=== PATIENT | male | born 1955 ===

== ENCOUNTER 2017-11-18 11:22 | Inpatient (IN) | payer MEDICAID, OTHER, SELFPAY ==
--- NOTE | 2017-11-18 11:49 | ED PDOC ---
Arrival/HPI - General Chief Complaint: Psychiatric Evaluation Time Seen by Provider: 11/18/17 11:28 Historian: Patient - History of Present Illness Narrative History of Present Illness (Text): 11/18/17 11:44 A 62 year old male, whose past medical history includes bipolar disorder, brought into the emergency department by EMS for suicidal ideation. Patient reports he has been drinking a lot and not going to work. His last drink was 1 hour prior to arrival. Patient states he feels he has no reason to live and wants to kill himself. Patient denies any somatic complaints at this time. Patient denies any trauma, fever, chills, nausea, vomiting, abdominal pain, chest pain, shortness of breath or any other complaints. Patient is compliant with his medications. Past Medical History - Provider Review Nursing Documentation Reviewed: Yes - Infectious Disease Hx of Infectious Diseases: None - Cardiac Hx Cardiac Disorders: No Hx Hypertension: No - Pulmonary Hx Tuberculosis: No - Neurological HX Cerebrovascular Accident: No Hx Seizures: No - HEENT Hx HEENT Disorder: No - Hematological/Oncological Hx Cancer: No - Integumentary Hx Dermatological Disorder: No - Genitourinary/Gynecological Hx Sexually Transmitted Diseases: No - Psychiatric Hx Anxiety: Yes Hx Bipolar Disorder: Yes Hx Depression: Yes Hx Substance Use: No - Anesthesia Hx Anesthesia: No Hx Anesthesia Reactions: No Family/Social History - Physician Review Nursing Documentation Reviewed: Yes Family/Social History: No Known Family HX Smoking Status: Never Smoked Hx Alcohol Use: Yes Frequency of alcohol use: Daily Hx Substance Use: No Allergies/Home Meds Allergies/Adverse Reactions: Allergies No Known Allergies Allergy (Verified 11/07/15 18:27) Review of Systems - Physician Review All systems were reviewed & negative as marked: Yes - Review of Systems Constitutional: absent: Fevers, Night Sweats Respiratory: absent: SOB Cardiovascular: absent: Chest Pain Gastrointestinal: absent: Abdominal Pain, Nausea, Vomiting Musculoskeletal: absent: Arthralgias Skin: absent: Rash, Pruritis Neurological: absent: Headache, Dizziness Psychiatric: Anxiety, Depression, Suicidal Ideation Physical Exam Vital Signs Reviewed: Yes Vital Signs Temp Pulse Resp BP Pulse Ox 11/18/17 12:41 118 H 18 130/88 95 11/18/17 11:45 98.2 F 88 18 128/88 98 Temperature: Afebrile Blood Pressure: Normal Pulse: Tachycardic Respiratory Rate: Normal Appearance: Positive for: Well-Appearing, Non-Toxic, Comfortable Pain Distress: None Mental Status: Positive for: Alert and Oriented X 3 - Systems Exam Head: Present: Atraumatic, Normocephalic Extroacular Muscles: Present: EOMI Conjunctiva: Present: Normal Mouth: Present: Moist Mucous Membranes Neck: Present: Normal Range of Motion Respiratory/Chest: Present: Clear to Auscultation, Good Air Exchange. No: Respiratory Distress, Accessory Muscle Use Cardiovascular: Present: Normal S1, S2, Tachycardic. No: Murmurs Abdomen: Present: Normal Bowel Sounds. No: Tenderness, Distention, Peritoneal Signs Upper Extremity: Present: Normal Inspection, Normal ROM. No: Cyanosis, Edema Lower Extremity: Present: Normal Inspection, Normal ROM. No: Edema Neurological: Present: GCS=15, Speech Normal, Gait Normal Skin: Present: Warm, Dry, Normal Color. No: Rashes Psychiatric: Present: Alert, Oriented x 3, Anxious, Depressed Mood, Suicidal Ideation Medical Decision Making ED Course and Treatment: 11/18/17 12:04 Patient is nontoxic extremely anxious. pacing in er. tachycardic. pt placed on 1:1 ativan given PO; CBC WNL CMP glucose; 173 Tylenol WNL Salicylate WNL Alcohol level 185 Urine drug screen wnl UA; wnl cxr: wnl ekg sinus tachycardia at 101 b/m no st elevations, qtc; 464 pt reassessment; HR: 118 BP:130/88, tremulous in er. ativan given IVP; Patient was seen and evaluated by PES screener: alexei; pt with SI, placed on 1:1 with etoh withdrawal; will admit to tele with psych consult. case discussed with dr. Denise Tabor; accepts admission to remote tele for etoh withdrawal with Psych consult. Impression;alcohol withdrawal, depression, anxiety, Suicidal ideation admit remote tele 11/18/17 15:09 - Lab Interpretations Lab Results: 11/18/17 11:30 11/18/17 11:30 Lab Results 11/18/17 13:27: Lactate Dehydrogenase 353, Total Creatine Kinase 74, Troponin I < 0.01 11/18/17 11:30: [place] 0.3 L 11/18/17 11:30: Alcohol, Quantitative 185 H 11/18/17 11:30: Salicylates < 1 L, Acetaminophen < 10.0 L 11/18/17 11:30: Urine Opiates Screen Negative, Urine Methadone Screen Negative, Ur Barbiturates Screen Negative, Ur Phencyclidine Scrn Negative, Ur Amphetamines Screen Negative, U Benzodiazepines Scrn Negative, U Oth Cocaine Metabols Negative, U Cannabinoids Screen Negative 11/18/17 11:30: Sodium 143, Potassium 3.7, Chloride 105, Carbon Dioxide 23, Anion Gap 18, BUN 8, Creatinine 0.8, Est GFR ( Amer) > 60, Est GFR (Non- Af Amer) > 60, Random Glucose 176 H, Calcium 9.5, Total Bilirubin 0.6, AST 41, ALT 36, Alkaline Phosphatase 41, Total Protein 7.4, Albumin 4.6, Globulin 2.9, Albumin/Globulin Ratio 1.6 11/18/17 11:30: Urine Color Straw, Urine Appearance Clear, Urine pH 6.0, Ur Specific [place] <= 1.005, Urine Protein Negative, Urine Glucose (UA) Negative, Urine Ketones Negative, Urine Blood Negative, Urine Nitrate Negative, Urine Bilirubin Negative, Urine Urobilinogen 0.2, Ur Leukocyte Esterase Negative 11/18/17 11:30: WBC 6.6, RBC 4.81, Hgb 14.5, Hct 42.6, MCV 88.6, MCH 30.1, MCHC 34.0, RDW 13.7, Plt Count 269, MPV 9.0, Gran % 81.7 H, Lymph % (Auto) 14.1 L, [place] % (Auto) 2.9, Eos % (Auto) 0.8 L, Baso % (Auto) 0.5, Gran # 5.38, Lymph # 0.9 L, [place] # 0.2, Eos # 0.1, Baso # 0.03 - RAD Interpretation Radiology Orders: 11/18/17 11:36 CHEST PORTABLE [RAD] Stat - Medication Orders Current Medication Orders: Multivitamins/Vitamin C 10 ml/Thiamine HCl 100 mg/ Folic Acid 1 mg/ Sodium Chloride 1,011.2 mls @ 100 mls/hr IV .[id number] ONE Stop: 11/18/17 22:52 Last Admin: 11/18/17 14:23 Dose: 100 mls/hr eMAR Start Stop Document 11/18/17 14:23 SE (Rec: 11/18/17 14:23 SE [id number]) Intravenous Solution Start Date 11/18/17 Start Time 14:23 Discontinued Medications Lorazepam (Ativan) 0.5 mg PO ONCE ONE PRN Reason: Protocol Stop: 11/18/17 11:42 Last Admin: 11/18/17 12:00 Dose: 0.5 mg Lorazepam (Ativan) 0.5 mg IVP ONCE ONE PRN Reason: Protocol Stop: 11/18/17 12:59 Last Admin: 11/18/17 13:34 Dose: 0.5 mg IVP Administration Document 11/18/17 13:34 SRE (Rec: 11/18/17 13:35 [id number]) Charges for Administration # of IVP Administrations 1 - Scribe Statement The provider has reviewed the documentation as recorded by the Lawsoniblyndsey Celeste Provider Scribe Attestation: All medical record entries made by the Scribe were at my direction and personally dictated by me. I have reviewed the chart and agree that the record accurately reflects my personal performance of the history, physical exam, medical decision making, and the department course for this patient. I have also personally directed, reviewed, and agree with the discharge instructions and disposition. Disposition/Present on Arrival - Present on Arrival Any Indicators Present on Arrival: No History of DVT/PE: No History of Uncontrolled Diabetes: No Urinary Catheter: No History of Decub. Ulcer: No History Surgical Site Infection Following: None - Disposition Have Diagnosis and Disposition been Completed?: Yes Diagnosis: Suicidal ideation, Alcohol withdrawal Disposition: HOSPITALIZED Disposition Time: 15:10 Patient Plan: Admission Condition: FAIR Referrals: Katerine Aguirre, [Primary Care Provider] - Follow up with primary Forms: [employer] (Azerbaijani)
[2017-11-18 11:51] LABS: URINE BILIRUBIN NEGATIVE (NEGATIVE); URINE BLOOD NEGATIVE (NEGATIVE); URINE GLUCOSE (UA) NEGATIVE (NEGATIVE); URINE LEUKOCYTE ESTERASE NEGATIVE Leu/uL (NEGATIVE); URINE NITRATE NEGATIVE (NEGATIVE); URINE PROTEIN NEGATIVE mg/dL (<30 mg/dL); URINE UROBILINOGEN 0.2 E.U./dL (<1 E.U./dL)
[2017-11-18 11:52] LABS: BASO # 0.03 K/mm3 (0.0-2.0); BASO % 0.5 % (0.0-3.0); EOS # 0.1 (0.0-0.7); EOS % 0.8 % (1.5-5.0); GRAN # 5.38 (1.4-6.5); GRAN % 81.7 % (50.0-68.0); HEMOGLOBIN 14.5 g/dL (14.0-18.0); LYMPH # 0.9 (1.2-3.4); LYMPH % 14.1 % (22.0-35.0); MEAN CELL VOLUME 88.6 fl (80.0-105.0); MEAN CORPUSCULAR HEMOGLOBIN 30.1 pg (25.0-35.0); MONO # 0.2 (0.1-0.6); MONO % 2.9 % (1.0-6.0); RBC 4.81 10^6/uL (3.5-6.1); RED CELL DISTRIBUTION WIDTH 13.7 % (11.5-14.5); WHITE BLOOD COUNT 6.6 10^3/ul (4.5-11.0)
[2017-11-18 11:53] LABS: URINE APPEARANCE CLEAR (CLEAR); URINE COLOR STRAW (YELLOW)
[2017-11-18 12:04] LABS: ALB/GLOB RATIO 1.6 (1.1-1.8); ALBUMIN 4.6 g/dL (3.0-4.8); ALT/SGPT 36 U/L (7-56); AST/SGOT 41 U/L (17-59); BLOOD UREA NITROGEN 8 mg/dL (7-21); CALCIUM 9.5 mg/dL (8.4-10.5); GFR AFRICAN-AMERICAN > 60; GFR NON-AFRICAN AMERICAN > 60
[2017-11-18 12:14] LABS: BARBITURATES, UR NEGATIVE (NEGATIVE); BENZODIAZEPINES, UR NEGATIVE (NEGATIVE); OPIATES, UR NEGATIVE (NEGATIVE); PHENCYCLIDINE, UR NEGATIVE (NEGATIVE)
--- NOTE | 2017-11-18 12:28 | RAD ---
HISTORY: pes eval COMPARISON: 11/07/2015 FINDINGS: LUNGS: Minimal linear scar/ atelectasis at right base. PLEURA: Slight blunting right costophrenic angle, chronic, consistent with pleural thickening. No pleural effusion. CARDIOVASCULAR: Normal heart size. Right infrahilar surgical clips, possibly related to prior partial pneumonectomy. OSSEOUS STRUCTURES: No significant abnormalities. VISUALIZED UPPER ABDOMEN: Normal. OTHER FINDINGS: None. IMPRESSION: No active disease.
[2017-11-18] MEDS ORDERED: Multivitamin (MVI) 10 ML, Thiamine 100 MG, Folic Acid 1 MG in Sodium Chloride 0.9% 1,00... IV ONE (12:46)
[2017-11-18 14:21] LABS: TROPONIN I < 0.01 ng/mL
[2017-11-18 15:04] LABS: ACETAMINOPHEN < 10.0 ug/ml (10.0-20.0); SALICYLATE < 1 mg/dL (2.0-20.0)
--- NOTE | 2017-11-18 16:14 | CP.PCM.HP ---
<Singh Traore - Last Filed: 11/19/17 04:31> History of Present Illness - History of Present Illness History of Present Illness: Singh Traore PGY1 IM H&P Note cc: I want to stop drinking alcohol Mr. Koch is a 62 yo Male with a psych history of Bipolar disorder but no medical history presented to ED after going to [facility] and requesting to be admitted to a program to help him stop drinking ETOH; patient was found to be intoxicated. Patient states his last drink was 3 shots of bicardi earlier on the day of admission. He usually drinks half-full pint of bicardi and 4x24oz beers. Patient had withdrawals before and describes them as tremors and says that he sometimes sees shadows, but denies any prior seizures. Patient has not been to any rehab programs before. Patient denies any recent illness, fevers/chills, n/v/d, chest pain, shortness of breath , cough, abdominal pain, headaches, changes in bowel/urinary habits. 12-pt ROS was reviewed and is otherwise unremarkable. 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, denies tobacco/drug/IVDA use, drinks ETOH as noted above Pharmacy: "pharmacy on [address]" Present on Admission - Present on Admission Any Indicators Present on Admission: No Review of Systems - Review of Systems All systems: reviewed and no additional remarkable complaints except (as per HPI ) Past Patient History - Infectious Disease Hx of Infectious Diseases: None - Past Social History Smoking Status: Never Smoked Alcohol: > 2 Drinks/Day Drugs: Denies Home Situation {Lives}: Alone - CARDIAC Hx Cardiac Disorders: No Hx Hypertension: No - PULMONARY Hx Respiratory Disorders: No Hx Tuberculosis: No - NEUROLOGICAL Hx Neurological Disorder: No HX Cerebrovascular Accident: No Hx Seizures: No - HEENT Hx HEENT Problems: No - RENAL Hx Chronic Kidney Disease: No - ENDOCRINE/METABOLIC Hx Endocrine Disorders: No - HEMATOLOGICAL/ONCOLOGICAL Hx Blood Disorders: No Hx Cancer: No - INTEGUMENTARY Hx Dermatological Problems: No - MUSCULOSKELETAL/RHEUMATOLOGICAL Hx Musculoskeletal Disorders: No - GASTROINTESTINAL Hx Gastrointestinal Disorders: No - GENITOURINARY/GYNECOLOGICAL Hx Genitourinary Disorders: No Hx Sexually Transmitted Disorders: No - PSYCHIATRIC Hx Anxiety: Yes Hx Bipolar Disorder: Yes Hx Depression: Yes Hx Substance Use: No - SURGICAL HISTORY Hx Surgeries: Yes Other/Comment: L inguinal hernia repair. ?thymus - ANESTHESIA Hx Anesthesia: No Hx Anesthesia Reactions: No Meds Allergies/Adverse Reactions: Allergies Allergy/AdvReac Type Severity Reaction Status Date / Time No Known Allergies Allergy Verified 11/07/15 18:27 Physical Exam - Constitutional Appears: Well, Non-toxic, No Acute Distress Additional comments: smells like ETOH not agitated or confused speaking coherently and comfortably in full sentences - Head Exam Head Exam: NORMAL INSPECTION - Eye Exam Eye Exam: EOMI, Normal appearance - ENT Exam ENT Exam: Mucous Membranes Moist - Neck Exam Neck exam: Positive for: Normal Inspection - Respiratory Exam Respiratory Exam: Clear to Auscultation Bilateral, NORMAL BREATHING PATTERN. absent: Rales, Rhonchi, Wheezes - Cardiovascular Exam Cardiovascular Exam: RRR, +S1, +S2 - GI/Abdominal Exam GI & Abdominal Exam: Normal Bowel Sounds, Soft. absent: Distended, Tenderness - Extremities Exam Extremities exam: Positive for: full ROM, normal inspection Additional comments: mild tremor with outstretched hands - Back Exam Back exam: NORMAL INSPECTION - Neurological Exam Neurological exam: Alert, Oriented x3 - Psychiatric Exam Psychiatric exam: Normal Affect, Normal Mood - Skin Skin Exam: Normal Color, Warm Results - Vital Signs Recent Vital Signs: Last Vital Signs Temp 98.2 F 11/18/17 15:39 Pulse 96 H 11/18/17 15:39 Resp 16 11/18/17 15:39 BP 121/68 11/18/17 15:39 Pulse Ox 98 11/18/17 15:39 - Labs Result Diagrams: 11/18/17 11:30 11/18/17 11:30 Labs: Laboratory Results - last 24 hr 11/18/17 11/18/17 11/18/17 11:30 11:30 11:30 WBC 6.6 RBC 4.81 Hgb 14.5 Hct 42.6 MCV 88.6 MCH 30.1 MCHC 34.0 RDW 13.7 Plt Count 269 MPV 9.0 Gran % 81.7 H Lymph % (Auto) 14.1 L [place] % (Auto) 2.9 Eos % (Auto) 0.8 L Baso % (Auto) 0.5 Gran # 5.38 Lymph # 0.9 L [place] # 0.2 Eos # 0.1 Baso # 0.03 Sodium 143 Potassium 3.7 Chloride 105 Carbon Dioxide 23 Anion Gap 18 BUN 8 Creatinine 0.8 Est GFR ( Amer) > 60 Est GFR (Non-Af Amer) > 60 Random Glucose 176 H Calcium 9.5 Total Bilirubin 0.6 AST 41 ALT 36 Alkaline Phosphatase 41 Lactate Dehydrogenase Total Creatine Kinase Troponin I Total Protein 7.4 Albumin 4.6 Globulin 2.9 Albumin/Globulin Ratio 1.6 Urine Color Straw Urine Appearance Clear Urine pH 6.0 Ur Specific [place] <= 1.005 Urine Protein Negative Urine Glucose (UA) Negative Urine Ketones Negative Urine Blood Negative Urine Nitrate Negative Urine Bilirubin Negative Urine Urobilinogen 0.2 Ur Leukocyte Esterase Negative Salicylates Urine Opiates Screen Urine Methadone Screen Acetaminophen Ur Barbiturates Screen Ur Phencyclidine Scrn Ur Amphetamines Screen U Benzodiazepines Scrn [place] U Oth Cocaine Metabols U Cannabinoids Screen Alcohol, Quantitative 11/18/17 11/18/17 11/18/17 11:30 11:30 11:30 WBC RBC Hgb Hct MCV MCH MCHC RDW Plt Count MPV Gran % Lymph % (Auto) [place] % (Auto) Eos % (Auto) Baso % (Auto) Gran # Lymph # [place] # Eos # Baso # Sodium Potassium Chloride Carbon Dioxide Anion Gap BUN Creatinine Est GFR ( Amer) Est GFR (Non-Af Amer) Random Glucose Calcium Total Bilirubin AST ALT Alkaline Phosphatase Lactate Dehydrogenase Total Creatine Kinase Troponin I Total Protein Albumin Globulin Albumin/Globulin Ratio Urine Color Urine Appearance Urine pH Ur Specific [place] Urine Protein Urine Glucose (UA) Urine Ketones Urine Blood Urine Nitrate Urine Bilirubin Urine Urobilinogen Ur Leukocyte Esterase Salicylates < 1 L Urine Opiates Screen Negative Urine Methadone Screen Negative Acetaminophen < 10.0 L Ur Barbiturates Screen Negative Ur Phencyclidine Scrn Negative Ur Amphetamines Screen Negative U Benzodiazepines Scrn Negative [place] U Oth Cocaine Metabols Negative U Cannabinoids Screen Negative Alcohol, Quantitative 185 H 11/18/17 11/18/17 11:30 13:27 WBC RBC Hgb Hct MCV MCH MCHC RDW Plt Count MPV Gran % Lymph % (Auto) [place] % (Auto) Eos % (Auto) Baso % (Auto) Gran # Lymph # [place] # Eos # Baso # Sodium Potassium Chloride Carbon Dioxide Anion Gap BUN Creatinine Est GFR ( Amer) Est GFR (Non-Af Amer) Random Glucose Calcium Total Bilirubin AST ALT Alkaline Phosphatase Lactate Dehydrogenase 353 Total Creatine Kinase 74 Troponin I < 0.01 Total Protein Albumin Globulin Albumin/Globulin Ratio Urine Color Urine Appearance Urine pH Ur Specific [place] Urine Protein Urine Glucose (UA) Urine Ketones Urine Blood Urine Nitrate Urine Bilirubin Urine Urobilinogen Ur Leukocyte Esterase Salicylates Urine Opiates Screen Urine Methadone Screen Acetaminophen Ur Barbiturates Screen Ur Phencyclidine Scrn Ur Amphetamines Screen U Benzodiazepines Scrn [place] 0.3 L U Oth Cocaine Metabols U Cannabinoids Screen Alcohol, Quantitative Assessment & Plan - Assessment and Plan (Free Text) Assessment: 62 yo Male with a psych history of Bipolar disorder but no medical history presented to ED after going to [facility] and requesting to be admitted to a program to help him stop drinking ETOH; patient was found to be intoxicated. Per ED note, the patient expresses suicidal ideations. Plan: 1. Alcohol intoxication/withdrawal - CIWA protocol - Librium SHIV - Ativan PRN - monitor for signs of withdrawal - seizure precautions - high fall risk - thiamine, folic acid, MV - EKG revealed sinus tachycardia - VS and labs reviewed - will order TSH and Hgb A1C and lipid profile 2. Suicidal ideation - 1:1 observation for patient safety - psych consulted - MARLYN zambrano 3. Bipolar dz - psych consulted, recs appreciated 4. PPX - Heparin for DVT ppx - PTX for GI ppx Patient was seen, examined and discussed with attending, Dr. Sharona Traore PGY1 Pager # [phone] <Samantha Tabor - Last Filed: 11/19/17 17:03> Results - Vital Signs Recent Vital Signs: Last Vital Signs Temp 97.7 F 11/18/17 23:47 Pulse 91 H 11/19/17 06:00 Resp 18 11/18/17 23:47 BP 128/43 L 11/18/17 23:47 Pulse Ox 97 11/18/17 23:47 - Labs Result Diagrams: 11/19/17 06:00 11/19/17 06:00 Labs: Laboratory Results - last 24 hr 11/18/17 11/18/17 11/18/17 16:00 21:53 22:46 WBC RBC Hgb Hct MCV MCH MCHC RDW Plt Count MPV Gran % Lymph % (Auto) [place] % (Auto) Eos % (Auto) Baso % (Auto) Gran # Lymph # (Auto) [place] # (Auto) Eos # (Auto) Baso # (Auto) Sodium Potassium Chloride Carbon Dioxide Anion Gap BUN Creatinine Est GFR ( Amer) Est GFR (Non-Af Amer) POC Glucose (mg/dL) 93 Random Glucose Hemoglobin A1c 4.8 Calcium Phosphorus Magnesium Total Bilirubin AST ALT Alkaline Phosphatase Total Protein Albumin Globulin Albumin/Globulin Ratio Triglycerides Cholesterol LDL Cholesterol Direct HDL Cholesterol Free T4 Thyroxine (T4) Free T3 pg/mL TSH 3rd Generation 5.98 H 11/19/17 11/19/17 11/19/17 06:00 06:00 06:30 WBC 6.5 RBC 4.48 Hgb 13.4 L Hct 40.0 L MCV 89.3 MCH 29.9 MCHC 33.5 RDW 13.5 Plt Count 272 MPV 9.3 Gran % 81.7 H Lymph % (Auto) 11.8 L [place] % (Auto) 5.5 Eos % (Auto) 0.5 L Baso % (Auto) 0.5 Gran # 5.33 Lymph # (Auto) 0.8 L [place] # (Auto) 0.4 Eos # (Auto) 0.0 Baso # (Auto) 0.03 Sodium 138 Potassium 4.1 Chloride 103 Carbon Dioxide 27 Anion Gap 12 BUN 13 Creatinine 0.9 Est GFR ( Amer) > 60 Est GFR (Non-Af Amer) > 60 POC Glucose (mg/dL) Random Glucose 101 Hemoglobin A1c Calcium 9.8 Phosphorus 3.2 Magnesium 1.7 Total Bilirubin 1.2 AST 42 ALT 43 Alkaline Phosphatase 41 Total Protein 6.7 Albumin 4.2 Globulin 2.5 Albumin/Globulin Ratio 1.7 Triglycerides 160 Cholesterol 242 H LDL Cholesterol Direct 137 H HDL Cholesterol 85 H Free T4 Thyroxine (T4) Free T3 pg/mL 3.05 TSH 3rd Generation 11/19/17 11/19/17 11/19/17 06:30 06:30 07:42 WBC RBC Hgb Hct MCV MCH MCHC RDW Plt Count MPV Gran % Lymph % (Auto) [place] % (Auto) Eos % (Auto) Baso % (Auto) Gran # Lymph # (Auto) [place] # (Auto) Eos # (Auto) Baso # (Auto) Sodium Potassium Chloride Carbon Dioxide Anion Gap BUN Creatinine Est GFR ( Amer) Est GFR (Non-Af Amer) POC Glucose (mg/dL) 100 Random Glucose Hemoglobin A1c Calcium Phosphorus Magnesium Total Bilirubin AST ALT Alkaline Phosphatase Total Protein Albumin Globulin Albumin/Globulin Ratio Triglycerides Cholesterol LDL Cholesterol Direct HDL Cholesterol Free T4 0.87 Thyroxine (T4) 6.1 Free T3 pg/mL TSH 3rd Generation 3.52 11/19/17 11/19/17 11:11 16:32 WBC RBC Hgb Hct MCV MCH MCHC RDW Plt Count MPV Gran % Lymph % (Auto) [place] % (Auto) Eos % (Auto) Baso % (Auto) Gran # Lymph # (Auto) [place] # (Auto) Eos # (Auto) Baso # (Auto) Sodium Potassium Chloride Carbon Dioxide Anion Gap BUN Creatinine Est GFR ( Amer) Est GFR (Non-Af Amer) POC Glucose (mg/dL) 114 H 84 Random Glucose Hemoglobin A1c Calcium Phosphorus Magnesium Total Bilirubin AST ALT Alkaline Phosphatase Total Protein Albumin Globulin Albumin/Globulin Ratio Triglycerides Cholesterol LDL Cholesterol Direct HDL Cholesterol Free T4 Thyroxine (T4) Free T3 pg/mL TSH 3rd Generation Attending/Attestation - Attestation I have personally seen and examined this patient.: Yes I have fully participated in the care of the patient.: Yes I have reviewed all pertinent clinical information: Yes Notes (Text): I have seen and examined the patient at bedside. Agree with the above note with the following additions/ exceptions: Briefly this is 62 year old male with history of left inguinal hernia repair, alcohol abuse, depression who was admitted for alcohol intoxication. CIWA protocol and Banana bag will be started. He appears somnolent now most likely due to medications.Will start ativan prn, seizure and fall precautions. Will order TSH and a1c. We will monitor patient on remote telemetry. Upon discharge patient will follow up with [facility] clinic. Dr Samantha Tabor
[2017-11-18] MEDS ORDERED: Thiamine 100 mg/ml Inj ONE (17:08)
[2017-11-18] MEDS: Insulin Lispro (humaLOG) LOW Coverage SC SCH ×2 (17:31→22:52)
[2017-11-19 01:44] VITALS: BMI 23.5
[2017-11-19] MEDS ORDERED: Influenza Vaccine 60 mcg/0.5 mL SYR (4YR UP) IM ONE (01:44)
[2017-11-19] MEDS ORDERED: Pneumococcal 23-Valent Vaccine IM ONE (01:44)
[2017-11-19 06:50] LABS: BASO # 0.03 K/mm3 (0.0-2.0); BASO % 0.5 % (0.0-3.0); EOS % 0.5 % (1.5-5.0); GRAN # 5.33 (1.4-6.5); GRAN % 81.7 % (50.0-68.0); HEMOGLOBIN 13.4 g/dL (14.0-18.0); LYMPH # 0.8 (1.2-3.4); LYMPH % 11.8 % (22.0-35.0); MEAN CELL VOLUME 89.3 fl (80.0-105.0); MEAN CORPUSCULAR HEMOGLOBIN 29.9 pg (25.0-35.0); MEAN CORPUSCULAR HGB CONC 33.5 g/dl (31.0-37.0); MEAN PLATELET VOLUME 9.3 fl (7.0-11.0); MONO # 0.4 (0.1-0.6); MONO % 5.5 % (1.0-6.0); RBC 4.48 10^6/uL (3.5-6.1); RED CELL DISTRIBUTION WIDTH 13.5 % (11.5-14.5); WHITE BLOOD COUNT 6.5 10^3/ul (4.5-11.0)
[2017-11-19 07:36] LABS: ALB/GLOB RATIO 1.7 (1.1-1.8); ALBUMIN 4.2 g/dL (3.0-4.8); ALT/SGPT 43 U/L (7-56); AST/SGOT 42 U/L (17-59); BLOOD UREA NITROGEN 13 mg/dL (7-21); CALCIUM 9.8 mg/dL (8.4-10.5); GFR AFRICAN-AMERICAN > 60; GFR NON-AFRICAN AMERICAN > 60; MAGNESIUM 1.7 mg/dL (1.7-2.2)
[2017-11-19] MEDS: Insulin Lispro (humaLOG) LOW Coverage SC SCH ×4 (08:15→21:32)
[2017-11-19 08:54] LABS: FREE T4 0.87 ng/dL (0.78-2.19); T4 6.1 ug/dL (5.5-11.0)
[2017-11-19] MEDS: Multivitamin With Minerals Tab PO SCH (09:03)
--- NOTE | 2017-11-19 10:57 | CP.PCM.PN ---
<EugenieSingh - Last Filed: 11/19/17 10:40> Subjective - Date & Time of Evaluation Date of Evaluation: 11/19/17 Time of Evaluation: 07:40 - Subjective Subjective: Singh Traore PGY1 IM Progress Note Patient was seen and examined at bedside. He remains on 1:1 for suicidal ideation. He states to me that he has planned to overdose on his psych pills before, but never attempted. He states that he sees shadows and hears voices behind him. Currently, he is tremulous and going through withdrawals. He is anxious but remains adamant about stopping his ETOH abuse, and states that that is his biggest issue. Patient denies fevers/chills, n/v/d, chest pain, shortness of breath. Objective - Vital Signs/Intake and Output Vital Signs (last 24 hours): Temp Pulse Resp BP Pulse Ox 97.7 F 91 H 18 128/43 L 97 11/18/17 23:47 11/19/17 06:00 11/18/17 23:47 11/18/17 23:47 11/18/17 23:47 Intake and Output: 11/19/17 11/19/17 06:59 18:59 Intake Total 900 Output Total 1200 Balance -300 - Medications Medications: Current Medications Chlordiazepoxide (Librium) 25 mg PO Q8 SHIV PRN Reason: Protocol Last Admin: 11/19/17 10:29 Dose: 25 mg Folic Acid (Folic Acid) 1 mg PO DAILY [facility] Last Admin: 11/19/17 09:03 Dose: 1 mg Heparin Sodium (Porcine) (Heparin) 5,000 units SC Q12 SHIV PRN Reason: Protocol Last Admin: 11/19/17 09:01 Dose: 5,000 units Insulin Human Lispro (Humalog Low) 0 units SC ACHS SHIV PRN Reason: Protocol Last Admin: 11/19/17 08:15 Dose: Not Given Lorazepam (Ativan) 1 mg IVP Q4H PRN; Protocol PRN Reason: Symptoms of alcohol withdrawl Last Admin: 11/19/17 09:00 Dose: 1 mg Multivitamins/Minerals (Therapeutic-M Tab) 1 tab PO 0800 [facility] Last Admin: 11/19/17 09:03 Dose: 1 tab Pantoprazole Sodium (Protonix Inj) 40 mg IVP DAILY [facility] Last Admin: 11/19/17 09:03 Dose: 40 mg Thiamine HCl (Vitamin B1 Tab) 100 mg PO DAILY [facility] Last Admin: 11/19/17 09:03 Dose: 100 mg - Labs Labs: 11/19/17 06:00 11/19/17 06:00 - Constitutional Appears: Well, Non-toxic, No Acute Distress - Head Exam Head Exam: NORMAL INSPECTION - Eye Exam Eye Exam: EOMI, Normal appearance, PERRL - ENT Exam ENT Exam: Mucous Membranes Moist - Neck Exam Neck Exam: Full ROM, Normal Inspection - Respiratory Exam Respiratory Exam: Clear to Ausculation Bilateral, NORMAL BREATHING PATTERN. absent: Rales, Rhonchi, Wheezes, Respiratory Distress - Cardiovascular Exam Cardiovascular Exam: RRR, +S1, +S2 - GI/Abdominal Exam GI & Abdominal Exam: Soft, Normal Bowel Sounds. absent: Distended, Tenderness - Extremities Exam Extremities Exam: Normal Inspection Additional comments: mild tremor with outstretched hands piloerection noted - Back Exam Back Exam: NORMAL INSPECTION - Neurological Exam Neurological Exam: Alert, Awake - Psychiatric Exam Psychiatric exam: Anxious - Skin Skin Exam: Normal Color, Warm Assessment and Plan - Assessment and Plan (Free Text) Assessment: 62 yo Male with a psych history of Bipolar disorder but no medical history presented to ED after going to [facility] and requesting to be admitted to a program to help him stop drinking ETOH; patient was found to be intoxicated. The patient expresses suicidal ideations and plan but no prior attempts endorsed to me, however, he has given different accounts of prior suicidal attempt to other physicians. Plan: 1. Alcohol intoxication/withdrawal - CIWA protocol - Librium SHIV - Ativan PRN - monitor for signs of withdrawal - seizure precautions - high fall risk - thiamine, folic acid, MV - EKG revealed sinus tachycardia - VS and labs reviewed - TSH mildly elevated, will re-order - lipid panel mildly elevated LDL, but no other risk factors other than age, encourage lifestyle modifications - A1C is wnl 2. Suicidal ideation - 1:1 observation for patient safety - psych consulted, and will admit patient to their unit when ready - MARLYN gelleral 3. Bipolar dz - psych consulted, recs appreciated - Risperdal and Remeron SHIV - cogentin BID 4. PPX - Heparin for DVT ppx - PTX for GI ppx Patient was seen, examined and discussed with attending, Dr. Sharona Traore PGY1 Pager # [phone] <Samantha Tabor - Last Filed: 11/19/17 17:14> Objective - Vital Signs/Intake and Output Vital Signs (last 24 hours): Temp Pulse Resp BP Pulse Ox 97.7 F 91 H 18 128/43 L 97 11/18/17 23:47 11/19/17 06:00 11/18/17 23:47 11/18/17 23:47 11/18/17 23:47 Intake and Output: 11/19/17 11/19/17 06:59 18:59 Intake Total 900 Output Total 1200 Balance -300 - Medications Medications: Current Medications Benztropine Mesylate (Cogentin) 1 mg PO BID SHIV Chlordiazepoxide (Librium) 25 mg PO Q8 SHIV PRN Reason: Protocol Last Admin: 11/19/17 14:08 Dose: 25 mg Folic Acid (Folic Acid) 1 mg PO DAILY [facility] Last Admin: 11/19/17 09:03 Dose: 1 mg Heparin Sodium (Porcine) (Heparin) 5,000 units SC Q12 SHIV PRN Reason: Protocol Last Admin: 11/19/17 09:01 Dose: 5,000 units Insulin Human Lispro (Humalog Low) 0 units SC ACHS SHIV PRN Reason: Protocol Last Admin: 11/19/17 16:40 Dose: Not Given Lorazepam (Ativan) 1 mg IVP Q4H PRN; Protocol PRN Reason: Symptoms of alcohol withdrawl Last Admin: 11/19/17 14:09 Dose: 1 mg Mirtazapine (Remeron) 15 mg PO HS SHIV Multivitamins/Minerals (Therapeutic-M Tab) 1 tab PO 0800 [facility] Last Admin: 11/19/17 09:03 Dose: 1 tab Pantoprazole Sodium (Protonix Ec Tab) 40 mg PO ACB SHIV Risperidone (Risperdal Tab) 2 mg PO HS SHIV PRN Reason: Protocol Thiamine HCl (Vitamin B1 Tab) 100 mg PO DAILY [facility] Last Admin: 11/19/17 09:03 Dose: 100 mg - Labs Labs: 11/19/17 06:00 11/19/17 06:00 Attending/Attestation - Attestation I have personally seen and examined this patient.: Yes I have fully participated in the care of the patient.: Yes I have reviewed all pertinent clinical information, including history, physical exam and plan: Yes Notes (Text): I have seen and examined the patient at bedside. Agree with the above note with the following additions/ exceptions: Briefly this is 62 year old male with history of left inguinal hernia repair, alcohol abuse, depression who was admitted for alcohol intoxication. He complains of headache, diaphoresis, shakiness of hands and visual hallucination. Will start librium and continue ativan prn. He also has suicidal ideation. TSH is normal. LDL is elevated. Life style modification recommended. A1C 4.8. Patient is not diabetic. We will monitor patient on remote telemetry. Upon discharge patient will follow up with [facility] clinic. Dr Samantha Tabor
--- NOTE | 2017-11-19 13:16 | CARD ---
APPROVED REPORT EKG Measurement Heart [id number] <Conclusion> Sinus tachycardia Otherwise normal ECG
[2017-11-20 06:30] LABS: BASO # 0.01 K/mm3 (0.0-2.0); BASO % 0.2 % (0.0-3.0); EOS # 0.1 (0.0-0.7); GRAN # 4.42 (1.4-6.5); GRAN % 73.7 % (50.0-68.0); HEMOGLOBIN 14.3 g/dL (14.0-18.0); LYMPH % 15.9 % (22.0-35.0); MEAN CELL VOLUME 88.2 fl (80.0-105.0); MEAN CORPUSCULAR HEMOGLOBIN 30.1 pg (25.0-35.0); MEAN CORPUSCULAR HGB CONC 34.1 g/dl (31.0-37.0); MEAN PLATELET VOLUME 9.4 fl (7.0-11.0); MONO # 0.6 (0.1-0.6); MONO % 9.2 % (1.0-6.0); RBC 4.75 10^6/uL (3.5-6.1); RED CELL DISTRIBUTION WIDTH 13.5 % (11.5-14.5)
[2017-11-20] MEDS ORDERED: Pantoprazole 40 mg EC Tab PO SCH (07:30)
[2017-11-20] MEDS: Multivitamin With Minerals Tab PO SCH (08:00)
[2017-11-20 08:10] LABS: ALB/GLOB RATIO 1.5 (1.1-1.8); ALBUMIN 4.5 g/dL (3.0-4.8); ALT/SGPT 41 U/L (7-56); AST/SGOT 46 U/L (17-59); BLOOD UREA NITROGEN 8 mg/dL (7-21); CALCIUM 10.1 mg/dL (8.4-10.5); GFR AFRICAN-AMERICAN > 60; GFR NON-AFRICAN AMERICAN > 60; MAGNESIUM 1.8 mg/dL (1.7-2.2)
[2017-11-20] MEDS: Insulin Lispro (humaLOG) LOW Coverage SC SCH ×2 (08:20→12:26)
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
[2017-11-20 13:45] VITALS: BP 133/90; PULSE 101; RESP 18; TEMP 98.3; O2SAT 98
--- NOTE | 2017-11-20 13:51 | CP.PCM.DIS ---
Provider - Provider Date of Admission: 11/18/17 14:57 Attending physician: Samantha Tabor MD Time Spent in preparation of Discharge (in minutes): 40 Diagnosis - Discharge Diagnosis (1) Alcohol withdrawal Status: Acute (2) Suicidal ideation Status: Acute (3) Alcohol abuse Status: Chronic (4) Bipolar disorder Status: Chronic Hospital Course - Lab Results Lab Results: Most Recent Lab Values WBC 6.0 10^3/ul (4.5-11.0) 11/20/17 05:45 RBC 4.75 10^6/uL (3.5-6.1) 11/20/17 05:45 Hgb 14.3 g/dL (14.0-18.0) 11/20/17 05:45 Hct 41.9 % (42.0-52.0) L 11/20/17 05:45 MCV 88.2 fl (80.0-105.0) 11/20/17 05:45 MCH 30.1 pg (25.0-35.0) 11/20/17 05:45 MCHC 34.1 g/dl (31.0-37.0) 11/20/17 05:45 RDW 13.5 % (11.5-14.5) 11/20/17 05:45 Plt Count 237 10^3/uL (120.0-450.0) 11/20/17 05:45 MPV 9.4 fl (7.0-11.0) 11/20/17 05:45 Gran % 73.7 % (50.0-68.0) H 11/20/17 05:45 Lymph % (Auto) 15.9 % (22.0-35.0) L 11/20/17 05:45 [place] % (Auto) 9.2 % (1.0-6.0) H 11/20/17 05:45 Eos % (Auto) 1.0 % (1.5-5.0) L 11/20/17 05:45 Baso % (Auto) 0.2 % (0.0-3.0) 11/20/17 05:45 Gran # 4.42 (1.4-6.5) 11/20/17 05:45 Lymph # (Auto) 1.0 (1.2-3.4) L 11/20/17 05:45 [place] # (Auto) 0.6 (0.1-0.6) 11/20/17 05:45 Eos # (Auto) 0.1 (0.0-0.7) 11/20/17 05:45 Baso # (Auto) 0.01 K/mm3 (0.0-2.0) 11/20/17 05:45 Sodium 142 mmol/L (132-148) 11/20/17 05:45 Potassium 3.7 mmol/L (3.6-5.0) 11/20/17 05:45 Chloride 104 mmol/L (98-107) 11/20/17 05:45 Carbon Dioxide 26 mmol/L (21-33) 11/20/17 05:45 Anion Gap 16 (10-20) 11/20/17 05:45 BUN 8 mg/dL (7-21) 11/20/17 05:45 Creatinine 0.8 mg/dl (0.8-1.5) 11/20/17 05:45 Est GFR ( Amer) > 60 11/20/17 05:45 Est GFR (Non-Af Amer) > 60 11/20/17 05:45 POC Glucose (mg/dL) 79 mg/dL (65-110) 11/20/17 11:33 Random Glucose 112 mg/dL (70-110) H 11/20/17 05:45 Hemoglobin A1c 4.8 % (4.2-6.5) 11/18/17 16:00 Calcium 10.1 mg/dL (8.4-10.5) 11/20/17 05:45 Phosphorus 3.0 mg/dL (2.5-4.5) 11/20/17 05:45 Magnesium 1.8 mg/dL (1.7-2.2) 11/20/17 05:45 Total Bilirubin 1.5 mg/dL (0.2-1.3) H 11/20/17 05:45 AST 46 U/L (17-59) 11/20/17 05:45 ALT 41 U/L (7-56) 11/20/17 05:45 Alkaline Phosphatase 45 U/L (38-126) 11/20/17 05:45 Lactate Dehydrogenase 353 U/L (333-699) 11/18/17 13:27 Total Creatine Kinase 74 U/L (35-230) 11/18/17 13:27 Troponin I < 0.01 ng/mL 11/18/17 13:27 Total Protein 7.4 g/dL (5.8-8.3) 11/20/17 05:45 Albumin 4.5 g/dL (3.0-4.8) 11/20/17 05:45 Globulin 2.9 gm/dL 11/20/17 05:45 Albumin/Globulin Ratio 1.5 (1.1-1.8) 11/20/17 05:45 Triglycerides 160 mg/dL (35-160) 11/19/17 06:30 Cholesterol 242 mg/dL (130-200) H 11/19/17 06:30 LDL Cholesterol Direct 137 mg/dL (0-129) H 11/19/17 06:30 HDL Cholesterol 85 mg/dL (29-60) H 11/19/17 06:30 Free T4 0.87 ng/dL (0.78-2.19) 11/19/17 06:30 Thyroxine (T4) 6.1 ug/dL (5.5-11.0) 11/19/17 06:30 Free T3 pg/mL 3.05 pg/mL (2.77-5.27) 11/19/17 06:30 TSH 3rd Generation 3.52 mIU/mL (0.46-4.68) 11/19/17 06:30 Urine Color Straw (YELLOW) 11/18/17 11:30 Urine Appearance Clear (CLEAR) 11/18/17 11:30 Urine pH 6.0 (4.7-8.0) 11/18/17 11:30 Ur Specific [place] <= 1.005 (1.005-1.035) 11/18/17 11:30 Urine Protein Negative mg/dL (<30 mg/dL) 11/18/17 11:30 Urine Glucose (UA) Negative mg/dL (NEGATIVE) 11/18/17 11:30 Urine Ketones Negative mg/dL (NEGATIVE) 11/18/17 11:30 Urine Blood Negative (NEGATIVE) 11/18/17 11:30 Urine Nitrate Negative (NEGATIVE) 11/18/17 11:30 Urine Bilirubin Negative (NEGATIVE) 11/18/17 11:30 Urine Urobilinogen 0.2 E.U./dL (<1 E.U./dL) 11/18/17 11:30 Ur Leukocyte Esterase Negative Chris/uL (NEGATIVE) 11/18/17 11:30 Salicylates < 1 mg/dL (2.0-20.0) L 11/18/17 11:30 Urine Opiates Screen Negative (NEGATIVE) 11/18/17 11:30 Urine Methadone Screen Negative (NEGATIVE) 11/18/17 11:30 Acetaminophen < 10.0 ug/ml (10.0-20.0) L 11/18/17 11:30 Ur Barbiturates Screen Negative (NEGATIVE) 11/18/17 11:30 Ur Phencyclidine Scrn Negative (NEGATIVE) 11/18/17 11:30 Ur Amphetamines Screen Negative (NEGATIVE) 11/18/17 11:30 U Benzodiazepines Scrn Negative (NEGATIVE) 11/18/17 11:30 [place] 0.3 mmol/L (0.5-1.3) L 11/18/17 11:30 U Oth Cocaine Metabols Negative (NEGATIVE) 11/18/17 11:30 U Cannabinoids Screen Negative (NEGATIVE) 11/18/17 11:30 Alcohol, Quantitative 185 mg/dL (0-10) H 11/18/17 11:30 - Hospital Course Hospital Course: Mr. Koch is a 62 yo Male with a psych history of Bipolar disorder and alcohol abuse who presented to ED after going to [facility] and requesting to be admitted to a program to help him stop drinking ETOH; patient was found to be intoxicated in ED. Patient states his last drink was 3 shots of bicardi earlier on the day of admission. Patient usually drinks larger amounts. He states that he has suicidal ideations and a plan to overdose on his psych meds but has not attempted before. Patient was placed on CIWA protocol and managed for his alcohol withdrawals. Psych was consulted for patient's history of bipolar disease and current suicidal ideations. Patient stated that he was seeing shadows and hearing voices. Patient remained on 1:1 for suicidality. Patient was accepted into psych unit and transferred once medically stable. Discharge Exam - Head Exam Head Exam: NORMAL INSPECTION - Eye Exam Eye Exam: EOMI, Normal appearance, PERRL - ENT Exam ENT Exam: Mucous Membranes Moist - Neck Exam Neck exam: Normal Inspection - Respiratory Exam Respiratory Exam: NORMAL BREATHING PATTERN. absent: Rales, Rhonchi, Wheezes - Cardiovascular Exam Cardiovascular Exam: RRR, +S1, +S2 - GI/Abdominal Exam GI & Abdominal Exam: Normal Bowel Sounds, Soft. absent: Distended, Tenderness - Extremities Exam Additional comments: tremor with outstretched hands - Back Exam Back exam: NORMAL INSPECTION - Neurological Exam Neurological exam: Alert, CN II-XII Intact, Oriented x3 - Psychiatric Exam Psychiatric exam: Anxious - Skin Skin Exam: Normal Color, Warm Discharge Plan - Follow Up Plan Condition: FAIR Disposition: DISCHARGE TO PSYCH HOSPITAL Instructions: Alcohol Intoxication (DC), Alcohol Intoxication (GEN), Abuse of Alcohol (DC), Suicide Prevention for Adults (DC), Suicide Prevention for Adults (GEN) Additional Instructions: PATIENT GOING TO 5B PHYSICIAN TO FOLLOW.
== END 2017-11-20 13:53 | DRG 751 ==
LOC: ED 11:22 → ERH 14:57 → 3RNO 23:14
PROVIDERS: ADMIT Hospitalist; ATTEND Hospitalist
DX: F10.239 Alcohol dependence with withdrawal, unspecified (principal); F10.229 Alcohol dependence with intoxication, unspecified; R45.851 Suicidal ideations; F31.9 Bipolar disorder, unspecified; Y90.6 Blood alcohol level of 120-199 mg/100 ml; Z91.410 Personal history of adult physical and sexual abuse; Z81.8 Family history of other mental and behavioral disorders

== ENCOUNTER 2017-11-20 13:55 | Inpatient (IN) | payer MEDICAID, OTHER ==
[2017-11-19 01:44] VITALS: BMI 23.5
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
[2017-11-20] MEDS ORDERED: Alum-Mag Hydrox-Simethicone Susp (30 mL) PO PRN (16:15)
[2017-11-20] MEDS ORDERED: Magnesium Hydroxide Susp 30 ml UD PO PRN (16:16)
[2017-11-20] MEDS ORDERED: LORazepam Half Tablet 0.25 MG PO SCH (18:00)
[2017-11-20] MEDS ORDERED: DiphenhydrAMINE 50 mg/ml Inj IM PRN (21:52)
[2017-11-20] MEDS ORDERED: DiphenhydrAMINE 50 mg/ml Inj ONE (21:54)
--- NOTE | 2017-11-21 01:23 | PCM.BM ---
<Dannielle Cid - Last Filed: 11/21/17 01:25> Treatment Plan Problems - Problems identified on initial assessmt Medication Nonadherence Date Initiated: 11/21/17 Time Initiated: :19 Assessment reference: NA Status: Active Feelings of Worthlessness Date Initiated: 11/21/17 Time Initiated: 01:19 Assessment reference: NA Status: Active Altered Sleep Patterns Date Initiated: 11/21/17 Time Initiated: 01:19 Assessment reference: NA Status: Active Social Isolation Date Initiated: 11/21/17 Time Initiated: 01:20 Assessment reference: NA Status: Active Treatment assets and liabiliti Patient Assests: ADL independent, negotiates basic needs Patient Liabilities: live alone, financial problems, poor support system, substance abuse - Milieu Protocol Maintain good personal hygiene: daily Encourage regular showers, daily Remind patient to perform daily oral care, daily Assist patient to perform ADL's Conduct patient checks and document Observation sheet: Q15 minutes Maintain personal safety: every shift Educate patient to report safety concerns to staff, every shift Monitor environment for contraband/sharps Medication safety: Monitor for expected outcome, potential side effects: every shift, Assess barriers to learning: every shift, Assess readiness for medication education: every shift Milieu Narrative: Treatment plan: Milieu/structure/supportive therapy Medical consult appreciated, see medical team note for more detailed info SW consultation for discharge plan and social issues Med management Family involvement Follow up on labs Will monitor closely SW evaluation for d/c planning Pt was educated about risk/benefits and alternatives of medications, coping strategies (safety plan, suicide prevention), relapse prevention, importance of follow up with psychiatrist and therapist, stay away from drugs/alcohol/smoking Medication Rationale: Patient was on Risperdal 2mg one at HS, this is increased to Risperdal 3mg one at bedtime for psychosis Mirtazepine 15mg one at bedtime for depression/ sleep Cogentin 1mg 1 po BID [place] 300mg one daily was discontinued, dose not therapeutic, risk outweighs potential benefits Discharge/Continuing Care - Education Needs Education Needs: Patient Medication, Patient Diagnosis/Disease Process, Patient Coping Skills, Patient Placement options, Patient Community resources, Patient Activities of Daily Living, Patient Nutrition, Patient Health Practices/Safety, Patient Aftercare Safety Plan - Discharge Discharge Criteria: Tolerates medication w/o severe side effects, Free of Suicidal thoughts, Free of agitation, Normal sleep pattern, Ability to care for self - Treatment Team Participation Patient/Family/SO Statement: Treatment plan: Milieu/structure/supportive therapy Medical consult appreciated, see medical team note for more detailed info SW consultation for discharge plan and social issues Med management Family involvement Follow up on labs Will monitor closely SW evaluation for d/c planning Pt was educated about risk/benefits and alternatives of medications, coping strategies (safety plan, suicide prevention), relapse prevention, importance of follow up with psychiatrist and therapist, stay away from drugs/alcohol/smoking Medication Rationale: Patient was on Risperdal 2mg one at HS, this is increased to Risperdal 3mg one at bedtime for psychosis Mirtazepine 15mg one at bedtime for depression/ sleep Cogentin 1mg 1 po BID [place] 300mg one daily was discontinued, dose not therapeutic, risk outweighs potential benefits <Kenya Lee - Last Filed: 11/21/17 07:41> - Diagnosis (1) Major depression with psychotic features Status: Acute Interventions: Psychoeducation Psychopharmacology/adjustment of medications as needed/ monitoring possible side effects Evaluate pt on daily basis Compliance with medications and follow up appointments Suicide and homicide risk assessment and prevention Relapse prevention Reduction of symptoms Improve functional status Family involvement As outpatient: cognitive behavioral therapy 11/21/17 07:40 (2) Alcohol withdrawal Status: Acute Interventions: Monitoring withdrawal symptoms Medical detoxification Pharmacotherapy for alcohol/benzos/opioid dependence Maintaining sobriety Relapse prevention Possible rehabilitation Motivational interviewing 12-step programs: AA meetings 11/21/17 07:41
[2017-11-21 07:14] VITALS: BP 169/110; PULSE 137; RESP 20; TEMP 97.9
[2017-11-21] MEDS ORDERED: Multivitamin Therapeutic Tab PO SCH (08:00)
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
--- NOTE | 2017-11-21 15:49 | CP.PCM.PCO ---
Addendum Addendum: 11/21/17 15:48 case was d/w , pt was admitted to ICU for further stabilization of delirum tremens issues addressed pt will be f/u by over the weekend
== END 2017-11-21 11:11 | disposition short-term general hospital (02) | DRG 430 ==
LOC: PSYC 13:55
PROVIDERS: ADMIT Psychiatry & Neurology Psychiatry; ATTEND Psychiatry & Neurology Psychiatry
DX: F32.3 Major depressive disorder, single episode, severe with psychotic features (principal); F11.20 Opioid dependence, uncomplicated; F10.239 Alcohol dependence with withdrawal, unspecified; F91.9 Conduct disorder, unspecified; Z62.810 Personal history of physical and sexual abuse in childhood; Z78.1 Physical restraint status

== ENCOUNTER 2017-11-21 08:47 | Inpatient (IN) | payer OTHER, MEDICAID ==
[2017-11-21 08:52] VITALS: BMI 26.6
[2017-11-21] MEDS ORDERED: Multivitamin (MVI) 10 ML, Thiamine 100 MG, Folic Acid 1 MG in Sodium Chloride 0.9% 1,00... IV ONE (09:01)
--- NOTE | 2017-11-21 09:37 | ED PDOC ---
Arrival/HPI - General Chief Complaint: Medical Clearance Time Seen by Provider: 11/21/17 09:01 Historian: Patient, Other (behavioral unit) EM Caveat: Altered Mental Status - Critical Care Critical Care Minutes: 45 minutes Critical Care Time: Excluding Proc Time - History of Present Illness Narrative History of Present Illness (Text): 11/21/17 9:41 Pt p/w + behavior changes today while at the behavior unit earlier today; pt was noted to be severe agitated and tremors; pt appearing + DT; code morin was activated while pt was upstairs and hospitalists evaluated patient and recommended benzos+geodone+librium; pt received the medications and appearing slightly calmer and was brought down to ED for further eval; pt + arousable to voice but oriented x 1, pt + appearing confused; no focal tenderness/pain is noted, no sob, no vomiting, no facial changes noted; pt is here for further eval pt's without other complaints. + last alcohol use was ~ 6-7 days ago pt was evaluated and treated in the hospital x 4-5 days and was just medically cleared to Behavior health yesterday for severe depression, alcohol dependence, suicidal ideation Time/Duration: Prior to Arrival Symptom Onset: Sudden Symptom Course: Unchanged Severity Level: Severe Activities at Onset: Rest Context: Other (hospital) Past Medical History - Provider Review Nursing Documentation Reviewed: Yes - Travel History Have you recently traveled outside [place] w/in the past 3 mons?: No - Past History Past History: No Previous - Infectious Disease Hx of Infectious Diseases: None - Cardiac Hx Cardiac Disorders: No Hx Angina: No Hx Atrial Fibrillation: No Hx Cardiac Arrhythmia: No Hx Circulatory Problems: No Hx Congestive Heart Failure: No Hx TX: No Hx Heart Murmur: No Hx Heart Transplant: No Hx Hypertension: No Hx Hypotension: No Hx Internal Defibrillator: No Hx Mitral Valve Prolapse: No Hx Pacemaker: No Hx Peripheral Edema: No Hx Peripheral Vascular Disease: No - Pulmonary Hx Respiratory Disorders: No - Neurological Hx Neurological Disorder: No - HEENT Hx HEENT Disorder: No - Renal Hx Renal Disorder: No - Endocrine/Metabolic Hx Endocrine Disorders: Yes Hx Diabetes Mellitus Type 1: Yes Hx Diabetes Mellitus Type 2: Yes - Hematological/Oncological Hx Blood Disorders: No - Integumentary Hx Dermatological Disorder: No - Musculoskeletal/Rheumatological Hx Musculoskeletal Disorders: No Hx Falls: Yes - Gastrointestinal Hx Gastrointestinal Disorders: No Hx Gastroesophageal Reflux: Yes - Genitourinary/Gynecological Hx Genitourinary Disorders: No - Psychiatric Hx Psychophysiologic Disorder: No Hx Anxiety: Yes Hx Bipolar Disorder: Yes Hx Depression: Yes Hx Substance Use: No - Surgical History Other/Comment: L inguinal hernia repair. ?thymus - Anesthesia Hx Anesthesia: No Hx Anesthesia Reactions: No Hx Malignant Hyperthermia: No Family/Social History - Physician Review Nursing Documentation Reviewed: Yes Family/Social History: No Known Family HX Smoking Status: Never Smoked Hx Alcohol Use: Yes Hx Substance Use: No Hx Substance Use Treatment: No Allergies/Home Meds Allergies/Adverse Reactions: Allergies No Known Allergies Allergy (Verified 11/21/17 12:05) Review of Systems - Review of Systems Constitutional: Fatigue Eyes: Normal ENT: Normal Respiratory: Normal Cardiovascular: Palpitations. absent: Chest Pain Gastrointestinal: Normal Genitourinary Male: Normal Musculoskeletal: Normal Skin: Normal Neurological: Other (AMS) Endocrine: Normal Hemo/Lymphatic: Normal Psychiatric: Depression, Suicidal Ideation Physical Exam Vital Signs Reviewed: Yes Vital Signs Temp Pulse Resp BP Pulse Ox 11/21/17 11:30 118 H 20 124/79 100 11/21/17 10:10 113 H 20 115/73 100 11/21/17 08:50 98.1 F 106 H 16 127/81 99 Temperature: Afebrile Blood Pressure: Hypertensive Pulse: Tachycardic Respiratory Rate: Normal Appearance: Positive for: Well-Appearing, Other (uncomfortable, sleepy, arousable to voice, cooperative) Pain Distress: None Mental Status: Positive for: Confused - Systems Exam Head: Present: Atraumatic, Normocephalic Pupils: Present: PERRL, Other (no nystagmus, no photophobia) Extroacular Muscles: Present: EOMI Conjunctiva: Present: Normal Ears: Present: Normal Mouth: Present: Normal Teeth, Other (mild dry oral mucosa, no drooling/stridor, no exudate/lesions) Pharnyx: Present: Normal Nose (External): Present: Atraumatic Nose (Internal): Present: Normal Inspection Neck: Present: Normal Range of Motion, Trachea Midline. No: MIDLINE TENDERNESS Respiratory/Chest: Present: Clear to Auscultation, Good Air Exchange Cardiovascular: Present: Normal S1, S2, Other (+ tachycardia, no murmur). No: Murmurs Abdomen: Present: Normal Bowel Sounds, Other (well nourished male, no focal tenderness, no masses/rebound/guarding/rigidity) Back: Present: Normal Inspection. No: Midline Tenderness Upper Extremity: Present: Normal Inspection, Normal ROM, NORMAL PULSES, Neurovascularly Intact Lower Extremity: Present: Normal Inspection, NORMAL PULSES, Neurovascularly Intact Neurological: Present: Other (GCS ~13; arousable to voice, NAD, follows simple commands, oriented x 1 (person, not to date/time/place)) Skin: Present: Warm, Normal Color Medical Decision Making ED Course and Treatment: 11/21/17 09:41 Impression: AMS, vital sign changes i have consider all the differential diagnosis regarding pt's chief medical complaints/clinical findings, including but are not limited to: AMS, vital sign changes A/P: AMS, vital signs changes - labs - iv - xray - ct - ua - utox - observe - supportive care DR Kong, intensivists contacted, made aware, will see patient 11/21/17 10:05 Dr Kong evaluated patient at bedside, recommend continued fluids, will continue to evaluate Dr Kong evaluated patient after fluids, pt remained unchanged, + altered and tremors noted, will accept patient to the ICU; would like to start precedex 11:15 - hospitalists, Dr Angel contacted, made aware, agrees with admission pt's vitals currently stable pt remained altered however, pt is able to state his first name pt will be admitted to the hospital for further evaluation/magt 11/21/17 18:56 Re-evaluation Time: 11:26 Reassessment Condition: Unchanged - Critical Care Critical Care Minutes: 45 minutes Critical Care Time: Excluding Proc Time Narrative Critical Care (Text): 11/21/17 11:30 critical care time: 45min, excluding procedure time, excluding time teaching residents/students/mid-level providers; including initial eval/diagnosis, diagnostic interpretation, re-eval, consultations, final disposition - Lab Interpretations Lab Results: 11/21/17 09:19 11/21/17 09:19 Lab Results 11/21/17 10:30: Urine Opiates Screen Negative, Urine Methadone Screen Negative, Ur Barbiturates Screen Negative, Ur Phencyclidine Scrn Negative, Ur Amphetamines Screen Negative, U Benzodiazepines Scrn Positive, U Oth Cocaine Metabols Negative, U Cannabinoids Screen Negative 11/21/17 10:30: Urine Color Yellow, Urine Appearance Sl cloudy, Urine pH 7.0, Ur Specific Emerson 1.025, Urine Protein Trace H, Urine Glucose (UA) Negative, Urine Ketones 40 H, Urine Blood Trace-intact H, Urine Nitrate Negative, Urine Bilirubin Negative, Urine Urobilinogen 0.2, Ur Leukocyte Esterase Negative, Urine RBC 1 - 3, Urine WBC 0 - 2, Ur Epithelial Cells 0 - 2 11/21/17 09:38: POC Glucose (mg/dL) 104 11/21/17 09:19: Phosphorus 2.7, Magnesium 1.9 11/21/17 09:19: Alcohol, Quantitative < 10 11/21/17 09:19: Salicylates < 1 L, Acetaminophen < 10.0 L 11/21/17 09:19: Sodium 140, Potassium 3.8, Chloride 105, Carbon Dioxide 24, Anion Gap 15, BUN 10, Creatinine 0.8, Est GFR ( Amer) > 60, Est GFR (Non- Af Amer) > 60, Random Glucose 109, Calcium 9.6, Total Bilirubin 1.0, AST 60 H D , ALT 43, Alkaline Phosphatase 38, Total Protein 7.0, Albumin 4.2, Globulin 2.8 , Albumin/Globulin Ratio 1.5 11/21/17 09:19: WBC 9.2 D, RBC 4.52, Hgb 13.8 L, Hct 40.0 L, MCV 88.5, MCH 30.5 , MCHC 34.5, RDW 13.4, Plt Count 241, MPV 9.5, Gran % 89.0 H, Lymph % (Auto) 4.2 L, Ray % (Auto) 6.6 H, Eos % (Auto) 0.1 L, Baso % (Auto) 0.1, Gran # 8.22 H , Lymph # (Auto) 0.4 L, Ray # (Auto) 0.6, Eos # (Auto) 0.0, Baso # (Auto) 0.01 , Neutrophils % (Manual) 92 H, Lymphocytes % (Manual) 4 L, Monocytes % (Manual) 4, Platelet Evaluation Normal I have reviewed the lab results: Yes Interpretation: Abnormal lab values (dehydration) - RAD Interpretation Radiology Orders: 11/21/17 09:01 CHEST PORTABLE [RAD] Stat FINDINGS: LUNGS: No active pulmonary disease. PLEURA: No significant pleural effusion identified, no pneumothorax apparent. CARDIOVASCULAR: Moderate cardiomegaly OSSEOUS STRUCTURES: No significant abnormalities. VISUALIZED UPPER ABDOMEN: Normal. OTHER FINDINGS: None. IMPRESSION: No active disease. 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 - EKG Interpretation EKG Interpretation (Text): 11/21/17 11:28 Sinus tach at 115 bpm, normal axis, no ectopy, non-specific st-t changes, BORDERLINE EKG; no gross changes compare with old ekg 10/201711/21/17 11:29 Interpreted by ED Physician: Yes Type: 12 lead EKG Comparison: Similar to previous EKG - Medication Orders Current Medication Orders: Heparin Sodium (Porcine) (Heparin) 5,000 units SC Q12 SHIV PRN Reason: Protocol Multivitamins/Vitamin C 10 ml/Thiamine HCl 100 mg/ Folic Acid 1 mg/ Sodium Chloride 1,011.2 mls @ 100 mls/hr IV ONCE ONE Stop: 11/21/17 19:07 Last Admin: 11/21/17 10:27 Dose: 100 mls/hr eMAR Start Stop Document 11/21/17 10:27 MS (Rec: 11/21/17 10:40 MS [id number]) Intravenous Solution Start Date 11/21/17 Start Time 10:40 Dexmedetomidine HCl (Precedex 4 Mcg/Ml (100 Ml)) 400 mcg in 100 mls @ 9.639 mls /hr IV .[id number] PRN; Protocol; 0.5 MCG/KG/HR PRN Reason: TITRATE PER PROTOCOL Last Admin: 11/21/17 11:38 Dose: 0.94 mcg/kg/hr, 18.3 mls/hr eMAR Start Stop Document 11/21/17 11:38 MS (Rec: 11/21/17 11:40 MS [id number]) Intravenous Solution Start Date 11/21/17 Start Time 11:39 Mir[place]ontes Agitation Sedation Document 11/21/17 11:38 MS (Rec: 11/21/17 11:40 MS [id number]) Mir[place]ontes Agitation Sedation Scale Mir[place]ontes Agitation Sedation Scale Score +3 Very Agitated: Pulls or removes tube(s) or catheter(s) ; aggressive Titration Intervention Document 11/21/17 11:38 MS (Rec: 11/21/17 11:40 MS [id number]) Titration Intake Waste Amount 0 Container Volume 100 Titration Dosing Titration Dose 0.94 IV Rate 18.3 Intake/Decrease Started Multivitamins/Vitamin C 10 ml/Thiamine HCl 100 mg/ Folic Acid 1 mg/ Sodium Chloride 1,011.2 mls @ 100 mls/hr IV .Q10H7M SHIV Stop: 11/23/17 01:20 Lorazepam (Ativan) 2 mg IVP Q4H PRN; Protocol PRN Reason: Anxiety Pantoprazole Sodium (Protonix Inj) 40 mg IVP DAILY SHIV Discontinued Medications Sodium Chloride (Sodium Chloride 0.9%) 1,000 mls @ 999 mls/hr IV .Q1H1M STA Stop: 11/21/17 11:42 Last Admin: 11/21/17 10:15 Dose: 999 mls/hr eMAR Start Stop Document 11/21/17 10:15 MS (Rec: 11/21/17 10:50 MS [id number]) Intravenous Solution Start Date 11/21/17 Start Time 10:15 End Date 11/21/17 End time 11:15 Total Infusion Time 60 Sodium Chloride (Sodium Chloride 0.9%) 1,000 mls @ 999 mls/hr IV .Q1H1M STA Stop: 11/21/17 11:43 Last Admin: 11/21/17 11:04 Dose: 999 mls/hr eMAR Start Stop Document 11/21/17 11:04 MS (Rec: 11/21/17 11:04 MS [id number]) Intravenous Solution Start Date 11/21/17 Start Time 11:04 End Date 11/21/17 End time 12:04 Total Infusion Time 60 Lorazepam (Ativan) 2 mg IVP ONCE ONE PRN Reason: Protocol Stop: 11/21/17 09:37 Last Admin: 11/21/17 09:58 Dose: 2 mg IVP Administration Document 11/21/17 09:58 MS (Rec: 11/21/17 09:59 MS [id number]) Charges for Administration # of IVP Administrations 1 Re-Assess: Reassess Psych Meds Document 11/21/17 10:28 MB (Rec: 11/21/17 14:54 MB [facility]-[email or web address] PACKER) Reassess Psych Med Ineffective-LIP notifed Pneumococcal Polyvalent Vaccine (Pneumovax 23 Vaccine) 0.5 ml IM .ONCE ONE Stop: 11/21/17 14:18 Disposition/Present on Arrival - Present on Arrival Any Indicators Present on Arrival: No History of DVT/PE: No History of Uncontrolled Diabetes: No Urinary Catheter: No History of Decub. Ulcer: No History Surgical Site Infection Following: None - Disposition Have Diagnosis and Disposition been Completed?: Yes Diagnosis: Altered mental status, unspecified, Delirium tremens, Depression, Alcohol dependence Disposition: HOSPITALIZED Disposition Time: 11:00 Patient Plan: Admission, ICU Patient Problems: Current Active Problems Problem Status Onset Altered mental status, unspecified Acute Delirium tremens Acute Depression Acute Alcohol dependence Acute Condition: FAIR
[2017-11-21 09:42] LABS: BASO # 0.01 K/mm3 (0.0-2.0); BASO % 0.1 % (0.0-3.0); EOS % 0.1 % (1.5-5.0); GRAN # 8.22 (1.4-6.5); HEMOGLOBIN 13.8 g/dL (14.0-18.0); LYMPH # 0.4 (1.2-3.4); LYMPH % 4.2 % (22.0-35.0); MEAN CELL VOLUME 88.5 fl (80.0-105.0); MEAN CORPUSCULAR HEMOGLOBIN 30.5 pg (25.0-35.0); MEAN CORPUSCULAR HGB CONC 34.5 g/dl (31.0-37.0); MEAN PLATELET VOLUME 9.5 fl (7.0-11.0); MONO # 0.6 (0.1-0.6); MONO % 6.6 % (1.0-6.0); PLATELET COUNT 241 10^3/uL (120.0-450.0); RBC 4.52 10^6/uL (3.5-6.1); RED CELL DISTRIBUTION WIDTH 13.4 % (11.5-14.5); WHITE BLOOD COUNT 9.2 10^3/ul (4.5-11.0)
[2017-11-21 09:46] LABS: ACETAMINOPHEN < 10.0 ug/ml (10.0-20.0); SALICYLATE < 1 mg/dL (2.0-20.0)
[2017-11-21 09:47] LABS: ALB/GLOB RATIO 1.5 (1.1-1.8); ALBUMIN 4.2 g/dL (3.0-4.8); ALT/SGPT 43 U/L (7-56); AST/SGOT 60 U/L (17-59); BLOOD UREA NITROGEN 10 mg/dL (7-21); CALCIUM 9.6 mg/dL (8.4-10.5); GFR AFRICAN-AMERICAN > 60; GFR NON-AFRICAN AMERICAN > 60
[2017-11-21] MEDS ORDERED: Sodium Chloride 0.9% 1,000 ML IV STA ×2 (10:42→10:43)
[2017-11-21 10:43] LABS: LYMPHOCYTE 4 % (22.0-35.0); MONOCYTE 4 % (1.0-6.0); NEUTROPHIL 92 % (50.0-70.0); PLATELET ESTIMATE NORMAL (NORMAL)
[2017-11-21 10:54] LABS: URINE BILIRUBIN NEGATIVE (NEGATIVE); URINE BLOOD TRACE-INTACT (NEGATIVE); URINE GLUCOSE (UA) NEGATIVE (NEGATIVE); URINE LEUKOCYTE ESTERASE NEGATIVE Leu/uL (NEGATIVE); URINE NITRATE NEGATIVE (NEGATIVE); URINE PROTEIN TRACE mg/dL (<30 mg/dL); URINE UROBILINOGEN 0.2 E.U./dL (<1 E.U./dL)
[2017-11-21 10:55] LABS: URINE APPEARANCE SL CLOUDY (CLEAR); URINE COLOR YELLOW (YELLOW)
[2017-11-21 11:00] LABS: URINE EPITHELIAL CELLS 0 - 2 /hpf (0-5); URINE WBC 0 - 2 /hpf (0-6)
[2017-11-21] MEDS: Dexmedetomidine 400mcg/100mL 400 MCG/100 ML BOTTLE IV PRN ×4 (11:23→23:12)
--- NOTE | 2017-11-21 11:23 | RAD ---
HISTORY: medical screening COMPARISON: 11/18/2017 FINDINGS: LUNGS: No active pulmonary disease. PLEURA: No significant pleural effusion identified, no pneumothorax apparent. CARDIOVASCULAR: Moderate cardiomegaly OSSEOUS STRUCTURES: No significant abnormalities. VISUALIZED UPPER ABDOMEN: Normal. OTHER FINDINGS: None. IMPRESSION: No active disease.
--- NOTE | 2017-11-21 11:26 | CP.PCM.CON ---
History of Present Illness - History of Present Illness History of Present Illness: CRITICAL CARE CONSULT NOTE HPI Patient is 62yo male with PMHx of EtOH abuse, psych disoder, presented to the ER from psych floor with periods of tremors, agitation, and hallucinations. Pt had just been on telemetry floor for treatment for EtOH withdrawal with Librium , Ativan. On psych floor patient had worsening symptoms of tremors, agitation, and hallucinations. Transferred to the ER. Currently somnolent, but wakes up to verbal and noxious stimuli, denies any major complaints. History is limited to the ER staff as patient cannot provide history. PMHx as above PSHx as above Allergies NKDA Meds as per EMR ROS as above FHx NC Review of Systems - Review of Systems Review of Systems: as per hpi Past Patient History - Infectious Disease Hx of Infectious Diseases: None - Past Social History Smoking Status: Never Smoked - CARDIAC Hx Cardiac Disorders: No Hx Angina: No Hx Atrial Fibrillation: No Hx Cardia Arrhythmia: No Hx Circulatory Problems: No Hx Congestive Heart Failure: No Hx Heart Attack: No Hx Heart Murmur: No Hx Heart Transplant: No Hx Hypertension: No Hx Hypotension: No Hx Internal Defibrillator: No Hx Mitral Valve Prolapse: No Hx Pacemaker: No Hx Peripheral Edema: No Hx Peripheral Vascular Disease: No - PULMONARY Hx Respiratory Disorders: No - NEUROLOGICAL Hx Neurological Disorder: No - HEENT Hx HEENT Problems: No - RENAL Hx Chronic Kidney Disease: No - ENDOCRINE/METABOLIC Hx Endocrine Disorders: Yes Hx Diabetes Mellitus Type 1: Yes Hx Diabetes Mellitus Type 2: Yes - HEMATOLOGICAL/ONCOLOGICAL Hx Blood Disorders: No - INTEGUMENTARY Hx Dermatological Problems: No - MUSCULOSKELETAL/RHEUMATOLOGICAL Hx Musculoskeletal Disorders: No Hx Falls: Yes - GASTROINTESTINAL Hx Gastrointestinal Disorders: No Hx Gastroesophageal Reflux: Yes - GENITOURINARY/GYNECOLOGICAL Hx Genitourinary Disorders: No - PSYCHIATRIC Hx Psychophysiologic Disorder: No Hx Anxiety: Yes Hx Bipolar Disorder: Yes Hx Depression: Yes Hx Substance Use: No - SURGICAL HISTORY Other/Comment: L inguinal hernia repair. ?thymus - ANESTHESIA Hx Anesthesia: No Hx Anesthesia Reactions: No Hx Malignant Hyperthermia: No Meds Allergies/Adverse Reactions: Allergies Allergy/AdvReac Type Severity Reaction Status Date / Time No Known Allergies Allergy Verified 11/20/17 14:32 - Medications Medications: Current Medications Multivitamins/Vitamin C 10 ml/Thiamine HCl 100 mg/ Folic Acid 1 mg/ Sodium Chloride 1,011.2 mls @ 100 mls/hr IV ONCE ONE Stop: 11/21/17 19:07 Last Admin: 11/21/17 10:27 Dose: 100 mls/hr Sodium Chloride (Sodium Chloride 0.9%) 1,000 mls @ 999 mls/hr IV .Q1H1M STA Stop: 11/21/17 11:42 Last Admin: 11/21/17 10:15 Dose: 999 mls/hr Sodium Chloride (Sodium Chloride 0.9%) 1,000 mls @ 999 mls/hr IV .Q1H1M STA Stop: 11/21/17 11:43 Last Admin: 11/21/17 11:04 Dose: 999 mls/hr Dexmedetomidine HCl (Precedex 4 Mcg/Ml (100 Ml)) 400 mcg in 100 mls @ 9.639 mls /hr IV .[id number] PRN; Protocol; 0.5 MCG/KG/HR PRN Reason: TITRATE PER PROTOCOL Physical Exam - Constitutional Appears: No Acute Distress, Combative, Confused - Eye Exam Eye Exam: Normal appearance - ENT Exam ENT Exam: Mucous Membranes Dry - Respiratory Exam Respiratory Exam: Clear to Auscultation Bilateral, NORMAL BREATHING PATTERN - Cardiovascular Exam Cardiovascular Exam: Tachycardia, REGULAR RHYTHM, +S1, +S2 - GI/Abdominal Exam GI & Abdominal Exam: Normal Bowel Sounds, Soft - Extremities Exam Extremities exam: Positive for: normal inspection Additional comments: extension tremors Results - Vital Signs Recent Vital Signs: Last Vital Signs Temp 98.1 F 11/21/17 08:50 Pulse 106 H 11/21/17 08:50 Resp 16 11/21/17 08:50 BP 127/81 11/21/17 08:50 Pulse Ox 99 11/21/17 08:50 - Labs Result Diagrams: 11/21/17 09:19 11/21/17 09:19 Labs: Laboratory Results - last 24 hr 11/21/17 11/21/17 11/21/17 09:19 09:19 09:19 WBC 9.2 D RBC 4.52 Hgb 13.8 L Hct 40.0 L MCV 88.5 MCH 30.5 MCHC 34.5 RDW 13.4 Plt Count 241 MPV 9.5 Gran % 89.0 H Lymph % (Auto) 4.2 L [place] % (Auto) 6.6 H Eos % (Auto) 0.1 L Baso % (Auto) 0.1 Gran # 8.22 H Lymph # (Auto) 0.4 L [place] # (Auto) 0.6 Eos # (Auto) 0.0 Baso # (Auto) 0.01 Neutrophils % (Manual) 92 H Lymphocytes % (Manual) 4 L Monocytes % (Manual) 4 Platelet Evaluation Normal Sodium 140 Potassium 3.8 Chloride 105 Carbon Dioxide 24 Anion Gap 15 BUN 10 Creatinine 0.8 Est GFR ( Amer) > 60 Est GFR (Non-Af Amer) > 60 POC Glucose (mg/dL) Random Glucose 109 Calcium 9.6 Total Bilirubin 1.0 AST 60 H D ALT 43 Alkaline Phosphatase 38 Total Protein 7.0 Albumin 4.2 Globulin 2.8 Albumin/Globulin Ratio 1.5 Urine Color Urine Appearance Urine pH Ur Specific [place] Urine Protein Urine Glucose (UA) Urine Ketones Urine Blood Urine Nitrate Urine Bilirubin Urine Urobilinogen Ur Leukocyte Esterase Urine RBC Urine WBC Ur Epithelial Cells Salicylates < 1 L Acetaminophen < 10.0 L Alcohol, Quantitative 11/21/17 11/21/17 11/21/17 09:19 09:38 10:30 WBC RBC Hgb Hct MCV MCH MCHC RDW Plt Count MPV Gran % Lymph % (Auto) [place] % (Auto) Eos % (Auto) Baso % (Auto) Gran # Lymph # (Auto) [place] # (Auto) Eos # (Auto) Baso # (Auto) Neutrophils % (Manual) Lymphocytes % (Manual) Monocytes % (Manual) Platelet Evaluation Sodium Potassium Chloride Carbon Dioxide Anion Gap BUN Creatinine Est GFR ( Amer) Est GFR (Non-Af Amer) POC Glucose (mg/dL) 104 Random Glucose Calcium Total Bilirubin AST ALT Alkaline Phosphatase Total Protein Albumin Globulin Albumin/Globulin Ratio Urine Color Yellow Urine Appearance Sl cloudy Urine pH 7.0 Ur Specific [place] 1.025 Urine Protein Trace H Urine Glucose (UA) Negative Urine Ketones 40 H Urine Blood Trace-intact H Urine Nitrate Negative Urine Bilirubin Negative Urine Urobilinogen 0.2 Ur Leukocyte Esterase Negative Urine RBC 1 - 3 Urine WBC 0 - 2 Ur Epithelial Cells 0 - 2 Salicylates Acetaminophen Alcohol, Quantitative < 10 Assessment & Plan - Assessment and Plan (Free Text) Assessment: 62yo male with PMHx of heavy EtOH abuse a/w EtOH withdrawal, DTs Delirium Tremens Alcohol Withdrawal Dehydration AMS Recommend: - supp o2 as needed - panculture, check procal - NPO - IVF hydration - Thiamine, Folic, MVT - Precedex drip - 1:1 observation - follow up Psych - CT head - GI ppx - DVT ppx - Monitor in MICU
[2017-11-21 11:38] LABS: BARBITURATES, UR NEGATIVE (NEGATIVE); OPIATES, UR NEGATIVE (NEGATIVE); PHENCYCLIDINE, UR NEGATIVE (NEGATIVE)
[2017-11-21 11:39] LABS: BENZODIAZEPINES, UR POSITIVE (NEGATIVE)
[2017-11-21 12:17] LABS: MAGNESIUM 1.9 mg/dL (1.7-2.2)
--- NOTE | 2017-11-21 12:31 | CP.PCM.HP ---
<Singh Traore - Last Filed: 11/21/17 16:21> History of Present Illness - History of Present Illness History of Present Illness: Singh Traore PGY1 IM H&P Note cc: ETOH withdrawal Mr. Koch is a 62 yo Male with a psych history of Bipolar disorder and alcohol abuse who was admitted to [facility] ED for ETOH intoxication and withdrawals and wanting to be admitted for ETOH rehab program. He was transferred to the psych unit for suicidality and bipolar dz treatment. Patient became agitated while admitted in psych unit and was actively going through withdrawals requiring IV medication, which could not be provided on psych unit. Patient became tachycardic and became altered, likely 2/2 withdrawal. Patient was transferred to ED where he was stared on Precedex drip. In ED, patient is not arousable and ROS could not be assessed. 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, denies tobacco/drug/IVDA use, drinks ETOH (half-full pint of bicardi and 4x24oz beers) Pharmacy: "pharmacy on [address]" Present on Admission - Present on Admission Any Indicators Present on Admission: No Review of Systems - Review of Systems Systems not reviewed;Unavailable: Altered Mental Status Past Patient History - Infectious Disease Hx of Infectious Diseases: None - Past Medical History & Family History Past Medical History?: Yes - Past Social History Smoking Status: Never Smoked Alcohol: > 2 Drinks/Day Drugs: Denies Home Situation {Lives}: Alone - CARDIAC Hx Cardiac Disorders: No Hx Angina: No Hx Atrial Fibrillation: No Hx Cardia Arrhythmia: No Hx Circulatory Problems: No Hx Congestive Heart Failure: No Hx Heart Attack: No Hx Heart Murmur: No Hx Heart Transplant: No Hx Hypertension: No Hx Hypotension: No Hx Internal Defibrillator: No Hx Mitral Valve Prolapse: No Hx Pacemaker: No Hx Peripheral Edema: No Hx Peripheral Vascular Disease: No - PULMONARY Hx Respiratory Disorders: No - NEUROLOGICAL Hx Neurological Disorder: No - HEENT Hx HEENT Problems: No - RENAL Hx Chronic Kidney Disease: No - ENDOCRINE/METABOLIC Hx Endocrine Disorders: No - HEMATOLOGICAL/ONCOLOGICAL Hx Blood Disorders: No - INTEGUMENTARY Hx Dermatological Problems: No - MUSCULOSKELETAL/RHEUMATOLOGICAL Hx Musculoskeletal Disorders: No - GASTROINTESTINAL Hx Gastrointestinal Disorders: No - GENITOURINARY/GYNECOLOGICAL Hx Genitourinary Disorders: No - PSYCHIATRIC Hx Psychophysiologic Disorder: No Hx Bipolar Disorder: Yes Hx Substance Use: No - SURGICAL HISTORY Hx Surgeries: Yes Other/Comment: L inguinal hernia repair. ?thymus - ANESTHESIA Hx Anesthesia: No Hx Anesthesia Reactions: No Hx Malignant Hyperthermia: No Meds Allergies/Adverse Reactions: Allergies Allergy/AdvReac Type Severity Reaction Status Date / Time No Known Allergies Allergy Verified 11/21/17 12:05 Physical Exam - Constitutional Appears: No Acute Distress - Head Exam Head Exam: NORMAL INSPECTION - Eye Exam Eye Exam: Normal appearance, PERRL - ENT Exam ENT Exam: Mucous Membranes Moist - Neck Exam Neck exam: Positive for: Normal Inspection - Respiratory Exam Respiratory Exam: NORMAL BREATHING PATTERN. absent: Rales, Rhonchi, Wheezes - Cardiovascular Exam Cardiovascular Exam: Tachycardia, +S1, +S2 - GI/Abdominal Exam GI & Abdominal Exam: Normal Bowel Sounds, Soft. absent: Distended, Tenderness - Extremities Exam Extremities exam: Positive for: normal inspection Additional comments: 2-pt restraints - Back Exam Back exam: NORMAL INSPECTION - Neurological Exam Neurological exam: Altered Additional comments: sedated - Psychiatric Exam Additional comments: could not be assessed - Skin Skin Exam: Normal Color, Warm Results - Vital Signs Recent Vital Signs: Last Vital Signs Temp 98.1 F 11/21/17 11:50 Pulse 112 H 11/21/17 11:50 Resp 16 11/21/17 11:50 BP 115/73 11/21/17 11:50 Pulse Ox 98 11/21/17 11:50 - Labs Result Diagrams: 11/21/17 09:19 11/21/17 09:19 Labs: Laboratory Results - last 24 hr 11/21/17 11:54 POC Glucose (mg/dL) 95 Assessment & Plan - Assessment and Plan (Free Text) Assessment: 62 yo Male with a psych history of Bipolar disorder and ETOH withdrawals presenting from Psych unit 5B with tachycardia and agitation/AMS 2/ 2 ETOH withdrawal. Patient was admitted due to suicidal ideations and wanting to be in ETOH Rehab program. Plan: 1. Alcohol withdrawal and DT's - will be admitted to ICU for close monitoring of DT's, and on sedation - on Precedex drip - Ativan PRN - CIWA protocol - monitor for signs of withdrawal - seizure precautions - neuro checks - vital signs check - high fall risk - banana bag - EKG revealed sinus tachycardia - VS and labs reviewed - TSH was normal from last admission 2. Suicidal ideation - 1:1 observation for patient safety - psych consulted, will take patient back to psych unit once stable - SW eval 3. Bipolar dz - psych consulted, recs appreciated 4. PPX - Heparin for DVT ppx - NPO diet for aspiration Patient was seen, examined and discussed with attending, Dr. Sharona Traore PGY1 Pager # [phone] <Samantha Tabor B - Last Filed: 11/22/17 18:21> Results - Vital Signs Recent Vital Signs: Last Vital Signs Temp 98.1 F 11/22/17 16:00 Pulse 59 L 11/22/17 10:00 Resp 28 H 11/21/17 19:30 BP 117/43 L 11/21/17 19:01 Pulse Ox 98 11/21/17 19:30 - Labs Result Diagrams: 11/22/17 05:10 11/22/17 05:10 Labs: Laboratory Results - last 24 hr 11/22/17 11/22/17 11/22/17 05:10 05:10 07:20 WBC 8.0 RBC 4.34 Hgb 13.1 L Hct 39.3 L MCV 90.6 MCH 30.2 MCHC 33.3 RDW 13.5 Plt Count 204 MPV 9.6 Sodium 145 Potassium 4.0 Chloride 113 H Carbon Dioxide 22 Anion Gap 13 BUN 10 Creatinine 0.9 Est GFR ( Amer) > 60 Est GFR (Non-Af Amer) > 60 POC Glucose (mg/dL) 80 Random Glucose 82 Calcium 8.9 Total Bilirubin 1.1 AST 86 H D ALT 59 H Alkaline Phosphatase 38 Total Protein 6.0 Albumin 3.5 Globulin 2.5 Albumin/Globulin Ratio 1.4 11/22/17 11/22/17 11:05 16:20 WBC RBC Hgb Hct MCV MCH MCHC RDW Plt Count MPV Sodium Potassium Chloride Carbon Dioxide Anion Gap BUN Creatinine Est GFR ( Amer) Est GFR (Non-Af Amer) POC Glucose (mg/dL) 66 73 Random Glucose Calcium Total Bilirubin AST ALT Alkaline Phosphatase Total Protein Albumin Globulin Albumin/Globulin Ratio Attending/Attestation - Attestation I have personally seen and examined this patient.: Yes I have fully participated in the care of the patient.: Yes I have reviewed all pertinent clinical information: Yes Notes (Text): I have seen and examined the patient at bedside. Agree with the above note with the following additions/ exceptions: Briefly this is 62 year old male with history of bipolar disorder and alcohol abuse who was transferred from psych unit for management of alcohol withdrawal. He will be admitted to ICU and will be closely monitored. He was started on precedex drip. Continue cIWA protocol, seizure precautions and fall precautions. Start banan bag. Continue 1:1. Psych will be consulted. Upon discharge patient will follow up in [facility] clinic. Dr Samantha Tabor
[2017-11-21] MEDS ORDERED: Influenza Vaccine 60 mcg/0.5 mL SYR (4YR UP) IM ONE (14:17)
[2017-11-21] MEDS ORDERED: Pneumococcal 23-Valent Vaccine IM ONE (14:17)
[2017-11-21] MEDS: Multivitamin (MVI) 10 ML, Thiamine 100 MG, Folic Acid 1 MG in Sodium Chloride 0.9% 1,00... IV SCH (22:29)
[2017-11-22] MEDS ORDERED: Sodium Chloride 0.9% 1,000 ML IV STA (00:58)
[2017-11-22] MEDS: Dexmedetomidine 400mcg/100mL 400 MCG/100 ML BOTTLE IV PRN ×3 (04:59→18:23)
[2017-11-22 05:46] LABS: HEMOGLOBIN 13.1 g/dL (14.0-18.0); MEAN CELL VOLUME 90.6 fl (80.0-105.0); MEAN CORPUSCULAR HEMOGLOBIN 30.2 pg (25.0-35.0); MEAN CORPUSCULAR HGB CONC 33.3 g/dl (31.0-37.0); MEAN PLATELET VOLUME 9.6 fl (7.0-11.0); RBC 4.34 10^6/uL (3.5-6.1); RED CELL DISTRIBUTION WIDTH 13.5 % (11.5-14.5)
[2017-11-22 05:56] LABS: ALB/GLOB RATIO 1.4 (1.1-1.8); ALBUMIN 3.5 g/dL (3.0-4.8); ALT/SGPT 59 U/L (7-56); AST/SGOT 86 U/L (17-59); BLOOD UREA NITROGEN 10 mg/dL (7-21); CALCIUM 8.9 mg/dL (8.4-10.5); GFR AFRICAN-AMERICAN > 60; GFR NON-AFRICAN AMERICAN > 60
--- NOTE | 2017-11-22 07:48 | CP.PCM.PN ---
<Rosa Maria Acosta - Last Filed: 11/22/17 16:33> Subjective - Date & Time of Evaluation Date of Evaluation: 11/22/17 Time of Evaluation: 08:30 - Subjective Subjective: PGY2 Medicine Note for Dr. Tabor Patient seen and examined at bedside. 1:1 sitter in room. As per nursing patient was agitated overnight and required Ativan prn. Patient is still sedated on Precedex gtt. ROS unobtainable. Objective - Vital Signs/Intake and Output Vital Signs (last 24 hours): Temp Pulse Resp BP Pulse Ox 97.7 F 103 H 28 H 117/43 L 98 11/22/17 04:00 11/21/17 19:30 11/21/17 19:30 11/21/17 19:01 11/21/17 19:30 Intake and Output: 11/22/17 11/22/17 06:59 18:59 Intake Total 200 Output Total 450 Balance -250 - Medications Medications: Current Medications Heparin Sodium (Porcine) (Heparin) 5,000 units SC Q12 SHIV PRN Reason: Protocol Last Admin: 11/21/17 22:16 Dose: 5,000 units Dexmedetomidine HCl (Precedex 4 Mcg/Ml (100 Ml)) 400 mcg in 100 mls @ 9.639 mls /hr IV .[id number] PRN; Protocol; 0.5 MCG/KG/HR PRN Reason: TITRATE PER PROTOCOL Last Admin: 11/22/17 04:59 Dose: 0.94 mcg/kg/hr, 18.3 mls/hr Multivitamins/Vitamin C 10 ml/Thiamine HCl 100 mg/ Folic Acid 1 mg/ Sodium Chloride 1,011.2 mls @ 100 mls/hr IV .Q10H7M [facility] Stop: 11/23/17 01:20 Last Admin: 11/21/17 22:29 Dose: 100 mls/hr Lorazepam (Ativan) 2 mg IVP Q4H PRN; Protocol PRN Reason: Anxiety Last Admin: 11/22/17 04:57 Dose: 2 mg Pantoprazole Sodium (Protonix Inj) 40 mg IVP DAILY [facility] Last Admin: 11/21/17 19:21 Dose: 40 mg - Labs Labs: 11/22/17 05:10 11/22/17 05:10 - Constitutional Appears: Chronically Ill - Head Exam Head Exam: ATRAUMATIC, NORMAL INSPECTION, NORMOCEPHALIC - Eye Exam Eye Exam: EOMI, Normal appearance - ENT Exam ENT Exam: Mucous Membranes Dry - Neck Exam Neck Exam: Normal Inspection - Respiratory Exam Respiratory Exam: Clear to Ausculation Bilateral. absent: Accessory Muscle Use , Rales, Rhonchi, Wheezes, Respiratory Distress - Cardiovascular Exam Cardiovascular Exam: Tachycardia, REGULAR RHYTHM, +S1, +S2 - GI/Abdominal Exam GI & Abdominal Exam: Soft, Normal Bowel Sounds - Extremities Exam Extremities Exam: Normal Inspection. absent: Pedal Edema Additional comments: 2point restraints in place - Neurological Exam Neurological Exam: absent: Alert, Awake Additional comments: sedated on precedex gtt - Skin Skin Exam: Dry, Intact Assessment and Plan - Assessment and Plan (Free Text) Assessment: 62 yo Male with a psych history of Bipolar disorder and ETOH withdrawals presenting from Psych unit 5B with tachycardia and agitation/AMS 2/ 2 ETOH withdrawal. Patient was admitted due to suicidal ideations and wanting to be in ETOH Rehab program. Plan: 1. Alcohol withdrawal and DT's - in ICU for close monitoring - on Precedex drip for sedation - Ativan PRN - CIWA protocol - monitor for signs of withdrawal - seizure precautions - neuro checks - vital signs check - high fall risk - VS and labs reviewed - TSH was normal from last admission 2. Suicidal ideation - 1:1 observation for patient safety - psych consulted, will take patient back to psych unit once stable - MARLYN zambrano 3. Bipolar dz - psych consulted, recs appreciated 4. PPX - Heparin for DVT ppx - NPO diet for aspiration Discussed with Dr. Sharona Acosta PGY2 <Samantha Tabor - Last Filed: 11/22/17 18:24> Objective - Vital Signs/Intake and Output Vital Signs (last 24 hours): Temp Pulse Resp BP Pulse Ox 98.1 F 59 L 28 H 117/43 L 98 11/22/17 16:00 11/22/17 10:00 11/21/17 19:30 11/21/17 19:01 11/21/17 19:30 Intake and Output: 11/22/17 11/22/17 06:59 18:59 Intake Total 200 100 Output Total 450 Balance -250 100 - Medications Medications: Current Medications Heparin Sodium (Porcine) (Heparin) 5,000 units SC Q12 SHIV PRN Reason: Protocol Last Admin: 11/22/17 09:59 Dose: 5,000 units Dexmedetomidine HCl (Precedex 4 Mcg/Ml (100 Ml)) 400 mcg in 100 mls @ 9.639 mls /hr IV .[id number] PRN; Protocol; 0.5 MCG/KG/HR PRN Reason: TITRATE PER PROTOCOL Last Admin: 11/22/17 09:59 Dose: 0.94 mcg/kg/hr, 18.3 mls/hr Multivitamins/Vitamin C 10 ml/Thiamine HCl 100 mg/ Folic Acid 1 mg/ Sodium Chloride 1,011.2 mls @ 100 mls/hr IV .Q10H7M [facility] Stop: 11/23/17 01:20 Last Admin: 11/22/17 14:01 Dose: 100 mls/hr Lorazepam (Ativan) 2 mg IVP Q4H PRN; Protocol PRN Reason: Anxiety Last Admin: 11/22/17 11:33 Dose: 2 mg Pantoprazole Sodium (Protonix Inj) 40 mg IVP DAILY [facility] Last Admin: 11/22/17 09:58 Dose: 40 mg - Labs Labs: 11/22/17 05:10 11/22/17 05:10 Attending/Attestation - Attestation I have personally seen and examined this patient.: Yes I have fully participated in the care of the patient.: Yes I have reviewed all pertinent clinical information, including history, physical exam and plan: Yes Notes (Text): I have seen and examined the patient at bedside. Agree with the above note with the following additions/ exceptions: Briefly this is 62 year old male with history of bipolar disorder and alcohol abuse who was transferred from psych unit for management of alcohol withdrawal. Continue precedex drip, banana bag, ativan prn, CIWA protocol, seizure precautions and fall precautions. Continue 1: 1. Awaiting Psych consult. Upon discharge patient will follow up in [facility] clinic. Dr Samantha Tabor
--- NOTE | 2017-11-22 10:25 | PN ---
DATE: 11/22/2017 VICE PRESIDENT OF RECRUITING NOTE SUBJECTIVE: The patient is confused, but resting at this time; O2 via nasal cannula. The patient has a history of alcohol abuse and presented to the hospital in DTs. At this time, he is hemodynamically stable. Note that the patient does have a psych history and is bipolar as well. PHYSICAL EXAMINATION: VITAL SIGNS: As far as his vitals, his temperature is 97.7, pulse is 103, respirations are 16, and his BP is 117/40. SKIN: Warm and dry. HEENT: Head atraumatic, normocephalic. Eyes, reactive to light. Ear, nose and throat seemed to be within normal limits. NECK: Supple. No JVD. No thyroid enlargement or lymph nodes. HEART: Has regular rate and rhythm. Normal S1, S2, but mildly tachycardic. LUNGS: Reveal good breath sounds bilaterally. ABDOMEN: Soft. Decreased bowel sounds. GENITALIA: Deferred. RECTAL: Deferred. MUSCULOSKELETAL: No joint deformities. EXTREMITIES: Reveal trace lower extremity edema. NEUROLOGIC: He is somewhat lethargic and confused, noted to be in active DTs. DATA: As far as his laboratories are concerned, his white count is 8.0, hemoglobin is 13.1, hematocrit 39.3 with platelets of 204,000. His sodium is 145, potassium 4.0, chloride 113, CO2 of 22 with a BUN of 10, creatinine of 0.9, and glucose of 80. IMPRESSION: As far as my impression, this patient has alcohol abuse and presented to the hospital and delirium tremors, has a history of bipolar disease with depression and anxiety and has gastroesophageal reflux disease as well as history of diabetes. PLAN: As far as our plan, we will continue with Ativan on p.r.n. basis. He is getting IV fluids, getting a banana bag as well as Precedex. The patient is on Protonix as well and note that because of the confusion, he is on one to one observation. We will continue to treat aggressively along with the other consultants and the primary care doctor, which is Dr. Avelar. Jesus Avelar MD
[2017-11-22] MEDS ORDERED: Dextrose 50% SYRINGE Inj (50 ml) IVP ONE (11:29)
[2017-11-22] MEDS: Multivitamin (MVI) 10 ML, Thiamine 100 MG, Folic Acid 1 MG in Sodium Chloride 0.9% 1,00... IV SCH ×2 (14:01→23:39)
[2017-11-22] MEDS ORDERED: Dextrose 50% SYRINGE Inj (50 ml) ONE (23:57)
[2017-11-23] MEDS: Dexmedetomidine 400mcg/100mL 400 MCG/100 ML BOTTLE IV PRN ×6 (03:20→23:55)
[2017-11-23 06:00] LABS: MEAN CELL VOLUME 88.5 fl (80.0-105.0); MEAN CORPUSCULAR HEMOGLOBIN 30.6 pg (25.0-35.0); MEAN CORPUSCULAR HGB CONC 34.6 g/dl (31.0-37.0); MEAN PLATELET VOLUME 9.7 fl (7.0-11.0); RBC 4.25 10^6/uL (3.5-6.1); RED CELL DISTRIBUTION WIDTH 13.4 % (11.5-14.5); WHITE BLOOD COUNT 8.6 10^3/ul (4.5-11.0)
[2017-11-23 06:18] LABS: ALB/GLOB RATIO 1.5 (1.1-1.8); ALT/SGPT 94 U/L (7-56); AST/SGOT 217 U/L (17-59); BLOOD UREA NITROGEN 10 mg/dL (7-21); CALCIUM 9.3 mg/dL (8.4-10.5); GFR AFRICAN-AMERICAN > 60; GFR NON-AFRICAN AMERICAN > 60; MAGNESIUM 1.8 mg/dL (1.7-2.2)
--- NOTE | 2017-11-23 07:59 | CP.PCM.PN ---
<Rosa Maria Acosta - Last Filed: 11/23/17 12:27> Subjective - Date & Time of Evaluation Date of Evaluation: 11/23/17 Time of Evaluation: 09:00 - Subjective Subjective: PGY2 Medicine Note for Dr. Tabor Patient seen and examined at bedside. 1:1 sitter in room. As per nursing patient was agitated overnight and climbing out of bed this AM. Continues to require Ativan PRN. Patient is still sedated on Precedex gtt. Mittens in place. ROS unobtainable. Objective - Vital Signs/Intake and Output Vital Signs (last 24 hours): Temp Pulse Resp BP Pulse Ox 98 F 52 L 19 138/60 88 L 11/23/17 04:00 11/23/17 07:40 11/23/17 07:40 11/23/17 07:00 11/23/17 07:40 Intake and Output: 11/23/17 11/23/17 06:59 18:59 Intake Total 1600 Output Total 1000 Balance 600 - Medications Medications: Current Medications Folic Acid (Folic Acid) 1 mg IM DAILY ON LICENSE OF [facility] Heparin Sodium (Porcine) (Heparin) 5,000 units SC Q12 SHIV PRN Reason: Protocol Last Admin: 11/22/17 21:25 Dose: 5,000 units Dexmedetomidine HCl (Precedex 4 Mcg/Ml (100 Ml)) 400 mcg in 100 mls @ 9.639 mls /hr IV .[id number] PRN; Protocol; 0.5 MCG/KG/HR PRN Reason: TITRATE PER PROTOCOL Last Admin: 11/23/17 06:10 Dose: 1.29 mcg/kg/hr, 25 mls/hr Dextrose/Sodium Chloride (Dextrose 5%/0.45% Ns 1000 Ml) 1,000 mls @ 100 mls/hr IV .Q10H SHIV Lorazepam (Ativan) 2 mg IVP Q4H PRN; Protocol PRN Reason: Anxiety Last Admin: 11/22/17 23:38 Dose: 2 mg Pantoprazole Sodium (Protonix Inj) 40 mg IVP DAILY SHIV Last Admin: 11/22/17 09:58 Dose: 40 mg Thiamine HCl (Vitamin B1 Inj) 100 mg IM DAILY ON LICENSE OF [facility] - Labs Labs: 11/23/17 05:30 11/23/17 05:30 - Constitutional Appears: Chronically Ill - Head Exam Head Exam: ATRAUMATIC, NORMAL INSPECTION, NORMOCEPHALIC - Eye Exam Eye Exam: Normal appearance. absent: Conjunctival injection, Scleral icterus - ENT Exam ENT Exam: Mucous Membranes Dry - Respiratory Exam Respiratory Exam: Clear to Ausculation Bilateral. absent: Rales, Rhonchi Additional comments: tachypneic - Cardiovascular Exam Cardiovascular Exam: Tachycardia, REGULAR RHYTHM, +S1, +S2 - GI/Abdominal Exam GI & Abdominal Exam: Soft, Normal Bowel Sounds. absent: Firm, Guarding, Rigid, Tenderness - Extremities Exam Additional comments: b/l mittens in place - Neurological Exam Neurological Exam: absent: Alert, Awake, Oriented x3 Additional comments: sedated on precedex - Skin Skin Exam: Dry, Intact Assessment and Plan - Assessment and Plan (Free Text) Assessment: 62 yo Male with a psych history of Bipolar disorder and ETOH withdrawals presenting from Psych unit 5B with tachycardia and agitation/AMS 2/ 2 ETOH withdrawal. Patient was admitted due to suicidal ideations and wanting to be in ETOH Rehab program. Plan: Alcohol withdrawal and DT's - in ICU for close monitoring - on Precedex drip for sedation - Ativan PRN - CIWA protocol - Multivitamins, thiamine, folic acid - monitor for signs of withdrawal - seizure precautions - neuro checks - vital signs check - high fall risk - VS and labs reviewed - TSH was normal from last admission Suicidal ideation - 1:1 observation for patient safety - psych consulted, will take patient back to psych unit once stable - SW duyenal Bipolar dz - psych consulted, recs appreciated Hypoglycemia - NPO as he is sedated - D5 1/2 NS @ 100cc/hr - Accucheck q6 PPX - Heparin for DVT ppx - NPO diet for aspiration Discussed with Dr. Sharona Acosta PGY2 <Samantha Tabor - Last Filed: 12/01/17 15:12> Objective - Vital Signs/Intake and Output Vital Signs (last 24 hours): Temp Pulse Resp BP Pulse Ox 99.2 F 88 22 153/97 H 98 11/30/17 16:00 12/01/17 10:00 12/01/17 07:32 12/01/17 05:00 12/01/17 07:32 Intake and Output: 12/01/17 12/01/17 06:59 18:59 Intake Total 100 Balance 100 - Medications Medications: Current Medications Ascorbic Acid (Vitamin C 500 Mg Tab) 500 mg PO DAILY ON LICENSE OF [facility] Last Admin: 12/01/17 10:08 Dose: 500 mg Bacitracin (Bacitracin) 1 ea TOP Q6 PRN PRN Reason: Swelling Last Admin: 11/28/17 09:34 Dose: 1 ea Folic Acid (Folic Acid) 1 mg PO DAILY ON LICENSE OF [facility] Last Admin: 12/01/17 11:14 Dose: 1 mg Heparin Sodium (Porcine) (Heparin) 5,000 units SC Q12 SHIV PRN Reason: Protocol Last Admin: 12/01/17 10:07 Dose: 5,000 units Hydralazine HCl (Apresoline) 10 mg IVP Q6 PRN PRN Reason: give if SBP >160 Last Admin: 11/30/17 08:42 Dose: 10 mg Dexmedetomidine HCl (Precedex 4 Mcg/Ml (100 Ml)) 400 mcg in 100 mls @ 3.629 mls /hr IV .Q24H PRN; Protocol; 0.2 MCG/KG/HR PRN Reason: Agitation Last Admin: 12/01/17 03:46 Dose: 1 mcg/kg/hr, 18.144 mls/hr Fentanyl Citrate (Fentanyl Citrate/Sodium Chloride 1 Mg/100 Ml) 1,000 mcg in 100 mls @ 5 mls/hr IV .Q20H PRN; Protocol; 50 MCG/HR PRN Reason: TITRATE PER MD ORDER Last Admin: 12/01/17 08:24 Dose: 50 mcg/hr, 5 mls/hr Insulin Human Lispro (Humalog Low) 0 units SC Q6H SHIV PRN Reason: Protocol Last Admin: 12/01/17 09:00 Dose: Not Given Levalbuterol HCl (Xopenex) 0.63 mg IH TIDRESP PRN PRN Reason: Shortness of Breath Levalbuterol HCl (Xopenex) 0.63 mg IH [id number] ON LICENSE OF [facility] Last Admin: 12/01/17 13:29 Dose: 0.63 mg Lorazepam (Ativan) 4 mg IVP Q4H PRN PRN Reason: Agitation Last Admin: 12/01/17 12:47 Dose: 4 mg Lorazepam (Ativan) 2 mg IVP TID ON LICENSE OF [facility] PRN Reason: Protocol Last Admin: 12/01/17 10:09 Dose: Not Given Multivitamins/Minerals (Therapeutic-M Tab) 1 tab PO 0800 ON LICENSE OF [facility] Last Admin: 12/01/17 10:08 Dose: 1 tab Pantoprazole Sodium (Protonix Inj) 40 mg IVP DAILY ON LICENSE OF [facility] Last Admin: 12/01/17 10:07 Dose: 40 mg Thiamine HCl (Vitamin B1 Tab) 100 mg PO TID SHIV Last Admin: 12/01/17 10:08 Dose: 100 mg Zinc Sulfate (Zinc Sulfate 220 Mg Cap) 220 mg PO DAILY ON LICENSE OF [facility] Last Admin: 12/01/17 10:08 Dose: 220 mg - Labs Labs: 12/01/17 05:30 12/01/17 05:30 PT 14.5 SECONDS (9.4-12.5) H 11/24/17 09:50 INR 1.26 (0.93-1.08) H 11/24/17 09:50 Attending/Attestation - Attestation I have personally seen and examined this patient.: Yes I have fully participated in the care of the patient.: Yes I have reviewed all pertinent clinical information, including history, physical exam and plan: Yes Notes (Text): I have seen and examined the patient at bedside. Agree with the above note with the following additions/ exceptions: Briefly this is 62 year old male with history of bipolar disorder and alcohol abuse who was transferred from psych unit for management of alcohol withdrawal. He was agitated when precedex was held. Continue precedex drip, banana bag, ativan prn, CIWA protocol, seizure precautions and fall precautions. Continue 1:1. Awaiting Psych consult. Upon discharge patient will [place] [facility] [place] Samantha Tabor
[2017-11-23] MEDS: Dextrose 5%/0.45% NS 1,000 ML IV SCH ×2 (09:13→19:05)
[2017-11-23] MEDS: Thiamine 100 mg/ml Inj IM SCH (10:27)
--- NOTE | 2017-11-23 10:59 | PN ---
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 He is on Precedex. The patient has a history of alcohol abuse and at this time, he is in DTs and is hemodynamically stable, but over the night, had episode of hypoglycemia, was given amp of D50 and will be started on D5 in his IV fluids and blood sugars will be checked via fingerstick. Patient is on one-to-one watch at this time. PHYSICAL EXAMINATION: VITAL SIGNS: His temperature is 98, pulse is 52, respirations are 19 and BP is 138/60. SKIN: Warm and dry. HEENT: Head atraumatic, normocephalic. Eyes reactive to light. Ear, nose and throat seemed to be within normal limits. NECK: Supple. No JVD. No thyroid enlargement, no lymph nodes. HEART: Has regular rate and rhythm. Normal S1, S2. LUNGS: Reveal good breath sounds bilaterally. ABDOMEN: Soft. Decreased bowel sounds. GENITALIA AND RECTAL: Deferred. MUSCULOSKELETAL: No joint deformities. EXTREMITIES: Reveal trace edema. NEUROLOGIC: Patient is arousable, moving all extremities. LABORATORY DATA: As far as his laboratories are concerned, his white count is 8.6, hemoglobin is 13.0, hematocrit 37.6 with platelets of 247,000. Sodium is 144, potassium 3.6, chloride 110, CO2 of 23 with a BUN of 10, creatinine of 0.9 and a glucose of 80. IMPRESSION: Patient has alcohol abuse and presents to the hospital in delirium tremors, with a history of bipolar disease, depression, anxiety and gastroesophageal reflux disease. Patient also carries a diagnosis of diabetes. He had an episode of hypoglycemia overnight. PLAN: As far as our plan, we will continue to monitor his blood sugars and start D5 and half normal saline with the vitamins in the bag. The patient is on Precedex and we will continue with Protonix. He is on one-to-one watch and we will continue to treat aggressively along with the other consultants and the primary care doctor. Jesus Avelar MD
[2017-11-24] MEDS: Dexmedetomidine 400mcg/100mL 400 MCG/100 ML BOTTLE IV PRN ×4 (03:12→23:39)
[2017-11-24] MEDS: Dextrose 5%/0.45% NS 1,000 ML IV SCH (04:59)
[2017-11-24 06:28] LABS: HEMOGLOBIN 12.4 g/dL (14.0-18.0); MEAN CELL VOLUME 87.5 fl (80.0-105.0); MEAN CORPUSCULAR HEMOGLOBIN 29.7 pg (25.0-35.0); MEAN PLATELET VOLUME 9.7 fl (7.0-11.0); RBC 4.17 10^6/uL (3.5-6.1); RED CELL DISTRIBUTION WIDTH 13.5 % (11.5-14.5); WHITE BLOOD COUNT 8.6 10^3/ul (4.5-11.0)
[2017-11-24 07:13] LABS: ALB/GLOB RATIO 1.3 (1.1-1.8); ALBUMIN 3.4 g/dL (3.0-4.8); ALT/SGPT 109 U/L (7-56); AST/SGOT 238 U/L (17-59); BLOOD UREA NITROGEN 9 mg/dL (7-21); CALCIUM 8.9 mg/dL (8.4-10.5); GFR AFRICAN-AMERICAN > 60; GFR NON-AFRICAN AMERICAN > 60; MAGNESIUM 1.7 mg/dL (1.7-2.2)
--- NOTE | 2017-11-24 07:41 | CP.CCUPN ---
<Yvon Acostaima - Last Filed: 11/24/17 10:27> CCU Subjective - Physician Review Subjective (Free Text): 11/24/17 10:27 Patient seen and examined at bedside. Overnight patient required ativan prn secondary to agitation. Precedex gtt was turned off for 10 minutes this AM however patient did not tolerate and became increasingly tachcyardic and agitated and tried climbing out of bed. Patient is also tachypneic and was using accessory muscles. Opens eyes to painful stimuli. Mittens b/l in place. 1: 1 sitter present at bedside. ROS unobtainable. CCU Objective - Vital Signs / Intake & Output Vital Signs (Last 4 hours): Vital Signs Temp Pulse Resp BP Pulse Ox 11/24/17 06:50 93 H 41 H 95 11/24/17 06:40 109 H 36 H 67 L 11/24/17 06:30 100 H 56 H 95 11/24/17 06:20 105 H 54 H 95 11/24/17 06:10 108 H 55 H 95 11/24/17 06:00 108 H 57 H 113/88 94 L 11/24/17 05:50 113 H 52 H 95 11/24/17 05:40 74 27 H 93 L 11/24/17 05:30 117 H 55 H 67 L 11/24/17 05:20 83 19 94 L 11/24/17 05:10 67 27 H 95 11/24/17 05:00 72 37 H 137/79 95 11/24/17 04:50 69 33 H 95 11/24/17 04:40 65 31 H 95 11/24/17 04:30 63 26 H 95 11/24/17 04:20 59 L 25 H 95 11/24/17 04:10 62 25 H 94 L 11/24/17 04:00 99 F 74 119/70 94 L 11/24/17 03:50 63 28 H 94 L Intake and Output (Last 8hrs): Intake & Output 11/23/17 11/24/17 11/24/17 22:59 06:59 14:59 Intake Total 200 1600 Output Total 300 Balance 200 1300 Weight 72.575 kg Intake: IV 200 1600 Left Forearm 1400 Oral 0 Output: Urine 300 Urine, Voided 300 Other: # Bowel Movements 0 - Physical Exam Head: Positive for: Atraumatic, Normocephalic Pupils: Positive for: PERRL Conjunctiva: Positive for: Normal Ears: Positive for: Normal Mouth: Positive for: Normal Teeth, Other (mild dry oral mucosa, no drooling/ stridor, no exudate/lesions) Pharnyx: Positive for: Normal Nose (External): Positive for: Atraumatic Nose (Internal): Positive for: Normal Inspection Neck: Positive for: Normal Range of Motion, Trachea Midline. Negative for: MIDLINE TENDERNESS Respiratory/Chest: Positive for: Good Air Exchange, Accessory Muscle Use, Wheezes, Tachypneic. Negative for: Rales, Rhonchi Cardiovascular: Positive for: Normal S1, S2, Tachycardic. Negative for: Murmurs Abdomen: Positive for: Normal Bowel Sounds. Negative for: Tenderness, Distention, Peritoneal Signs, Rebound, Guarding Back: Positive for: Normal Inspection. Negative for: Midline Tenderness Upper Extremity: Positive for: Normal Inspection, Normal ROM, NORMAL PULSES, Neurovascularly Intact, Other (mittens in place b/l) Lower Extremity: Positive for: Normal Inspection, NORMAL PULSES. Negative for: Edema Neurological: Positive for: Other (sedated on precedex gtt) Skin: Positive for: Warm, Diaphoretic Psychiatric: Negative for: Alert, Oriented x 3, Normal Insight, Normal Concentration Other physical findings (Free Text): agitated on precedex gtt - Medications Active Medications: Active Medications Generic Name Dose Route Start Last Admin Trade Name Freq PRN Reason Stop Dose Admin Folic Acid 1 mg 11/23/17 10:00 11/23/17 15:37 Folic Acid IM 1 mg DAILY SHIV Administration Heparin Sodium (Porcine) 5,000 units 11/21/17 22:00 11/23/17 21:20 Heparin SC 5,000 units Q12 SHIV Administration Protocol Dextrose/Sodium Chloride 1,000 mls @ 100 mls/hr 11/23/17 08:00 11/24/17 04:59 Dextrose 5%/0.45% Ns 1000 Ml IV 100 mls/hr .Q10H SHIV Administration Potassium Chloride 10 meq in 100 mls @ 50 mls/hr 11/24/17 07:38 Potassium Chloride 10 Meq/100 Ml IVPB 11/24/17 09:37 ONCE ONE Potassium Chloride 10 meq in 100 mls @ 50 mls/hr 11/24/17 10:00 Potassium Chloride 10 Meq/100 Ml IVPB 11/24/17 11:59 ONCE ONE Potassium Chloride 10 meq in 100 mls @ 50 mls/hr 11/24/17 12:30 Potassium Chloride 10 Meq/100 Ml IVPB 11/24/17 14:29 ONCE ONE Lorazepam 2 mg 11/21/17 11:46 11/24/17 05:51 Ativan IVP 2 mg Q4H PRN Administration Anxiety Protocol Pantoprazole Sodium 40 mg 11/22/17 10:00 11/23/17 10:31 Protonix Inj IVP 40 mg DAILY SHIV Administration Thiamine HCl 100 mg 11/23/17 10:00 11/23/17 10:27 Vitamin B1 Inj IM 100 mg DAILY SHIV Administration - Patient Studies Lab Studies: Microbiology Studies 11/21/17 21:45 MRSA Culture (Admit) - Final Naris MRSA NOT DETECTED Lab Studies 11/24/17 11/24/17 11/24/17 Range/Units 05:30 05:30 03:56 WBC 8.6 (4.5-11.0) 10^3/ul RBC 4.17 (3.5-6.1) 10^6/uL Hgb 12.4 L (14.0-18.0) g/dL Hct 36.5 L (42.0-52.0) % MCV 87.5 (80.0-105.0) fl MCH 29.7 (25.0-35.0) pg MCHC 34.0 (31.0-37.0) g/dl RDW 13.5 (11.5-14.5) % Plt Count 229 (120.0-450.0) 10^3/uL MPV 9.7 (7.0-11.0) fl Sodium 144 (132-148) mmol/L Potassium 3.1 L (3.6-5.0) mmol/L Chloride 109 H (98-107) mmol/L Carbon Dioxide 24 (21-33) mmol/L Anion Gap 15 (10-20) BUN 9 (7-21) mg/dL Creatinine 0.7 L (0.8-1.5) mg/dl Est GFR ( Amer) > 60 Est GFR (Non-Af Amer) > 60 POC Glucose (mg/dL) 131 H (65-110) mg/dL Random Glucose 129 H (70-110) mg/dL Calcium 8.9 (8.4-10.5) mg/dL Phosphorus 3.6 (2.5-4.5) mg/dL Magnesium 1.7 (1.7-2.2) mg/dL Total Bilirubin 1.2 (0.2-1.3) mg/dL AST 238 H (17-59) U/L ALT 109 H (7-56) U/L Alkaline Phosphatase 36 L (38-126) U/L Total Protein 6.1 (5.8-8.3) g/dL Albumin 3.4 (3.0-4.8) g/dL Globulin 2.6 gm/dL Albumin/Globulin Ratio 1.3 (1.1-1.8) 11/23/17 11/23/17 11/23/17 Range/Units 20:11 18:50 11:57 WBC (4.5-11.0) 10^3/ul RBC (3.5-6.1) 10^6/uL Hgb (14.0-18.0) g/dL Hct (42.0-52.0) % MCV (80.0-105.0) fl MCH (25.0-35.0) pg MCHC (31.0-37.0) g/dl RDW (11.5-14.5) % Plt Count (120.0-450.0) 10^3/uL MPV (7.0-11.0) fl Sodium (132-148) mmol/L Potassium (3.6-5.0) mmol/L Chloride (98-107) mmol/L Carbon Dioxide (21-33) mmol/L Anion Gap (10-20) BUN (7-21) mg/dL Creatinine (0.8-1.5) mg/dl Est GFR ( Amer) Est GFR (Non-Af Amer) POC Glucose (mg/dL) 101 86 91 (65-110) mg/dL Random Glucose (70-110) mg/dL Calcium (8.4-10.5) mg/dL Phosphorus (2.5-4.5) mg/dL Magnesium (1.7-2.2) mg/dL Total Bilirubin (0.2-1.3) mg/dL AST (17-59) U/L ALT (7-56) U/L Alkaline Phosphatase (38-126) U/L Total Protein (5.8-8.3) g/dL Albumin (3.0-4.8) g/dL Globulin gm/dL Albumin/Globulin Ratio (1.1-1.8) Laboratory Results - last 24 hr 11/23/17 11/23/17 11/23/17 11:57 18:50 20:11 WBC RBC Hgb Hct MCV MCH MCHC RDW Plt Count MPV Sodium Potassium Chloride Carbon Dioxide Anion Gap BUN Creatinine Est GFR ( Amer) Est GFR (Non-Af Amer) POC Glucose (mg/dL) 91 86 101 Random Glucose Calcium Phosphorus Magnesium Total Bilirubin AST ALT Alkaline Phosphatase Total Protein Albumin Globulin Albumin/Globulin Ratio 11/24/17 11/24/17 11/24/17 03:56 05:30 05:30 WBC 8.6 RBC 4.17 Hgb 12.4 L Hct 36.5 L MCV 87.5 MCH 29.7 MCHC 34.0 RDW 13.5 Plt Count 229 MPV 9.7 Sodium 144 Potassium 3.1 L Chloride 109 H Carbon Dioxide 24 Anion Gap 15 BUN 9 Creatinine 0.7 L Est GFR ( Amer) > 60 Est GFR (Non-Af Amer) > 60 POC Glucose (mg/dL) 131 H Random Glucose 129 H Calcium 8.9 Phosphorus 3.6 Magnesium 1.7 Total Bilirubin 1.2 AST 238 H ALT 109 H Alkaline Phosphatase 36 L Total Protein 6.1 Albumin 3.4 Globulin 2.6 Albumin/Globulin Ratio 1.3 Fingerstick Blood Sugar Results: 130 Review of Systems - Review of Systems Systems not reviewed;Unavailable: Altered Mental Status Critical Care Progress Note - Nutrition Nutrition: Nutrition Category Date Time Status NPO Diet [DIET] Diets 11/21/17 Breakfast Ordered Assessment/Plan - Assessment and Plan (Free Text) Assessment: 62yo male with PMHx of heavy EtOH abuse admitted to ICU with EtOH withdrawal and DTs 1. Delirium Tremens 2. Alcohol Withdrawal 3. Dehydration 4. AMS Plan: Recommend: - Precedex gtt - Ativan PRN - f/u blooc and urine culture, procalcitonin, lactic acid - Empiric Abx: Cefepime and Vancomycin - IVF hydration - NPO - Thiamine, Folic, MVT Diet: NPO GI ppx: Protonix 40mg ivp qd DVT ppx: Heparin 5000u sc q12, SCDs Precautions: Aspiration, Seizure, 1:1, CIWA protocol Dispo: continue to monitor in MICU Discussed with Dr. Dilan Acosta PGY2 <Cooper Kong - Last Filed: 11/24/17 12:14> CCU Objective - Vital Signs / Intake & Output Vital Signs (Last 4 hours): Vital Signs Pulse BP 11/24/17 10:30 135 H 176/107 H 11/24/17 10:00 135 H Intake and Output (Last 8hrs): Intake & Output 11/23/17 11/24/17 11/24/17 22:59 06:59 14:59 Intake Total 200 1600 16 Output Total 300 Balance 200 1300 16 Weight 160 lb Intake: IV 200 1600 16 Left Forearm 1400 Oral 0 Output: Urine 300 Urine, Voided 300 Other: # Bowel Movements 0 - Medications Active Medications: Active Medications Generic Name Dose Route Start Last Admin Trade Name Freq PRN Reason Stop Dose Admin Heparin Sodium (Porcine) 5,000 units 11/21/17 22:00 11/24/17 09:26 Heparin SC 5,000 units Q12 SHIV Administration Protocol Potassium Chloride 10 meq in 100 mls @ 50 mls/hr 11/24/17 12:30 Potassium Chloride 10 Meq/100 Ml IVPB 11/24/17 14:29 ONCE ONE Dexmedetomidine HCl 400 mcg in 100 mls @ 3.629 mls/hr 11/24/17 08:35 10:00 Precedex 4 Mcg/Ml (100 Ml) IV 0.5 mcg/kg/hr .Q24H PRN 9.072 mls/hr Agitation Titration Protocol 0.2 MCG/KG/HR Cefepime HCl 1 gm in 100 mls @ 100 mls/hr 11/24/17 10:00 11/24/17 10:59 Maxipime 1gm IVPB 100 mls/hr Q12 SHIV Administration Protocol Vancomycin HCl 500 mg in 100 mls @ 200 mls/hr 11/24/17 10:00 11/24/17 10:01 Vancomycin 500mg In Ns IVPB 200 mls/hr Q12 SHIV Administration Protocol Thiamine HCl 100 mg/ Folic 1,011.2 mls @ 100 mls/hr 11/24/17 09:52 11/24/17 11:06 Acid 1 mg/ Multivitamins/ IV 100 mls/hr Vitamin C 10 ml/ Dextrose/ .Q10H7M SHIV Administration Sodium Chloride Levalbuterol HCl 0.63 mg 11/24/17 10:37 Xopenex IH [id number] PRN Shortness of Breath Lorazepam 2 mg 11/21/17 11:46 11/24/17 08:49 Ativan IVP 2 mg Q4H PRN Administration Anxiety Protocol Pantoprazole Sodium 40 mg 11/22/17 10:00 11/24/17 09:25 Protonix Inj IVP 40 mg DAILY SHIV Administration - Patient Studies Lab Studies: Microbiology Studies 11/21/17 21:45 MRSA Culture (Admit) - Final Naris MRSA NOT DETECTED Lab Studies 11/24/17 11/24/17 11/24/17 Range/Units 11:27 09:50 09:50 WBC (4.5-11.0) 10^3/ul RBC (3.5-6.1) 10^6/uL Hgb (14.0-18.0) g/dL Hct (42.0-52.0) % MCV (80.0-105.0) fl MCH (25.0-35.0) pg MCHC (31.0-37.0) g/dl RDW (11.5-14.5) % Plt Count (120.0-450.0) 10^3/uL MPV (7.0-11.0) fl PT 14.5 H (9.4-12.5) SECONDS INR 1.26 H (0.93-1.08) Sodium (132-148) mmol/L Potassium (3.6-5.0) mmol/L Chloride (98-107) mmol/L Carbon Dioxide (21-33) mmol/L Anion Gap (10-20) BUN (7-21) mg/dL Creatinine (0.8-1.5) mg/dl Est GFR ( Amer) Est GFR (Non-Af Amer) POC Glucose (mg/dL) 96 (65-110) mg/dL Random Glucose (70-110) mg/dL Lactic Acid 1.1 (0.7-2.1) mmol/L Calcium (8.4-10.5) mg/dL Phosphorus (2.5-4.5) mg/dL Magnesium (1.7-2.2) mg/dL Total Bilirubin (0.2-1.3) mg/dL AST (17-59) U/L ALT (7-56) U/L Alkaline Phosphatase (38-126) U/L Total Protein (5.8-8.3) g/dL Albumin (3.0-4.8) g/dL Globulin gm/dL Albumin/Globulin Ratio (1.1-1.8) 11/24/17 11/24/17 11/24/17 Range/Units 05:30 05:30 03:56 WBC 8.6 (4.5-11.0) 10^3/ul RBC 4.17 (3.5-6.1) 10^6/uL Hgb 12.4 L (14.0-18.0) g/dL Hct 36.5 L (42.0-52.0) % MCV 87.5 (80.0-105.0) fl MCH 29.7 (25.0-35.0) pg MCHC 34.0 (31.0-37.0) g/dl RDW 13.5 (11.5-14.5) % Plt Count 229 (120.0-450.0) 10^3/uL MPV 9.7 (7.0-11.0) fl PT (9.4-12.5) SECONDS INR (0.93-1.08) Sodium 144 (132-148) mmol/L Potassium 3.1 L (3.6-5.0) mmol/L Chloride 109 H (98-107) mmol/L Carbon Dioxide 24 (21-33) mmol/L Anion Gap 15 (10-20) BUN 9 (7-21) mg/dL Creatinine 0.7 L (0.8-1.5) mg/dl Est GFR ( Amer) > 60 Est GFR (Non-Af Amer) > 60 POC Glucose (mg/dL) 131 H (65-110) mg/dL Random Glucose 129 H (70-110) mg/dL Lactic Acid (0.7-2.1) mmol/L Calcium 8.9 (8.4-10.5) mg/dL Phosphorus 3.6 (2.5-4.5) mg/dL Magnesium 1.7 (1.7-2.2) mg/dL Total Bilirubin 1.2 (0.2-1.3) mg/dL AST 238 H (17-59) U/L ALT 109 H (7-56) U/L Alkaline Phosphatase 36 L (38-126) U/L Total Protein 6.1 (5.8-8.3) g/dL Albumin 3.4 (3.0-4.8) g/dL Globulin 2.6 gm/dL Albumin/Globulin Ratio 1.3 (1.1-1.8) 11/23/17 11/23/17 Range/Units 20:11 18:50 WBC (4.5-11.0) 10^3/ul RBC (3.5-6.1) 10^6/uL Hgb (14.0-18.0) g/dL Hct (42.0-52.0) % MCV (80.0-105.0) fl MCH (25.0-35.0) pg MCHC (31.0-37.0) g/dl RDW (11.5-14.5) % Plt Count (120.0-450.0) 10^3/uL MPV (7.0-11.0) fl PT (9.4-12.5) SECONDS INR (0.93-1.08) Sodium (132-148) mmol/L Potassium (3.6-5.0) mmol/L Chloride (98-107) mmol/L Carbon Dioxide (21-33) mmol/L Anion Gap (10-20) BUN (7-21) mg/dL Creatinine (0.8-1.5) mg/dl Est GFR ( Amer) Est GFR (Non-Af Amer) POC Glucose (mg/dL) 101 86 (65-110) mg/dL Random Glucose (70-110) mg/dL Lactic Acid (0.7-2.1) mmol/L Calcium (8.4-10.5) mg/dL Phosphorus (2.5-4.5) mg/dL Magnesium (1.7-2.2) mg/dL Total Bilirubin (0.2-1.3) mg/dL AST (17-59) U/L ALT (7-56) U/L Alkaline Phosphatase (38-126) U/L Total Protein (5.8-8.3) g/dL Albumin (3.0-4.8) g/dL Globulin gm/dL Albumin/Globulin Ratio (1.1-1.8) Laboratory Results - last 24 hr 11/23/17 11/23/17 11/24/17 18:50 20:11 03:56 WBC RBC Hgb Hct MCV MCH MCHC RDW Plt Count MPV PT INR Sodium Potassium Chloride Carbon Dioxide Anion Gap BUN Creatinine Est GFR ( Amer) Est GFR (Non-Af Amer) POC Glucose (mg/dL) 86 101 131 H Random Glucose Lactic Acid Calcium Phosphorus Magnesium Total Bilirubin AST ALT Alkaline Phosphatase Total Protein Albumin Globulin Albumin/Globulin Ratio 11/24/17 11/24/17 11/24/17 05:30 05:30 09:50 WBC 8.6 RBC 4.17 Hgb 12.4 L Hct 36.5 L MCV 87.5 MCH 29.7 MCHC 34.0 RDW 13.5 Plt Count 229 MPV 9.7 PT INR Sodium 144 Potassium 3.1 L Chloride 109 H Carbon Dioxide 24 Anion Gap 15 BUN 9 Creatinine 0.7 L Est GFR ( Amer) > 60 Est GFR (Non-Af Amer) > 60 POC Glucose (mg/dL) Random Glucose 129 H Lactic Acid 1.1 Calcium 8.9 Phosphorus 3.6 Magnesium 1.7 Total Bilirubin 1.2 AST 238 H ALT 109 H Alkaline Phosphatase 36 L Total Protein 6.1 Albumin 3.4 Globulin 2.6 Albumin/Globulin Ratio 1.3 11/24/17 11/24/17 09:50 11:27 WBC RBC Hgb Hct MCV MCH MCHC RDW Plt Count MPV PT 14.5 H INR 1.26 H Sodium Potassium Chloride Carbon Dioxide Anion Gap BUN Creatinine Est GFR ( Amer) Est GFR (Non-Af Amer) POC Glucose (mg/dL) 96 Random Glucose Lactic Acid Calcium Phosphorus Magnesium Total Bilirubin AST ALT Alkaline Phosphatase Total Protein Albumin Globulin Albumin/Globulin Ratio Critical Care Progress Note - Nutrition Nutrition: Nutrition Category Date Time Status NPO Diet [DIET] Diets 11/21/17 Breakfast Ordered Assessment/Plan - Assessment and Plan (Free Text) Plan: PAtient seen and examined on rounds with resident, agree with note with following additions/exceptions: 62yo male with PMHx of heavy EtOH abuse a/w EtOH withdrawal, DTs. Currently febrile, tachycardic, started on broad spectrum antibiotics. Continues to require Precedex drip. Delirium Tremens Alcohol Withdrawal Dehydration AMS Recommend: - supp o2 as needed - panculture, check procal, UA, UCx, BCx - Start Broad spectrum antibiotics: Vanco, Cefepime - NPO - IVF hydration - Thiamine, Folic, MVT - Precedex drip - 1:1 observation - follow up Psych - GI ppx - DVT ppx - Monitor in MICU crtical care time 35 minutes
--- NOTE | 2017-11-24 08:58 | CP.PCM.PN ---
<Singh Traore - Last Filed: 11/24/17 14:18> Subjective - Date & Time of Evaluation Date of Evaluation: 11/24/17 Time of Evaluation: 08:58 - Subjective Subjective: Singh Traore IM Progress Note Patient was seen and examined in ICU. Patient remains on Precedex drip and HPI/ ROS could not be obtained. As per ICU staff, once the Precedex was stopped, the patient was getting out of bed and required that it be restarted. Patient has mittens. Objective - Vital Signs/Intake and Output Vital Signs (last 24 hours): Temp Pulse Resp BP Pulse Ox 99 F 93 H 41 H 113/88 95 11/24/17 04:00 11/24/17 06:50 11/24/17 06:50 11/24/17 06:00 11/24/17 06:50 Intake and Output: 11/24/17 11/24/17 06:59 18:59 Intake Total 1700 Output Total 300 Balance 1400 - Medications Medications: Current Medications Folic Acid (Folic Acid) 1 mg IM DAILY [facility] Last Admin: 11/23/17 15:37 Dose: 1 mg Heparin Sodium (Porcine) (Heparin) 5,000 units SC Q12 SHIV PRN Reason: Protocol Last Admin: 11/23/17 21:20 Dose: 5,000 units Dextrose/Sodium Chloride (Dextrose 5%/0.45% Ns 1000 Ml) 1,000 mls @ 100 mls/hr IV .Q10H [facility] Last Admin: 11/24/17 04:59 Dose: 100 mls/hr Potassium Chloride (Potassium Chloride 10 Meq/100 Ml) 10 meq in 100 mls @ 50 mls/hr IVPB ONCE ONE Stop: 11/24/17 09:37 Last Admin: 11/24/17 08:19 Dose: 50 mls/hr Potassium Chloride (Potassium Chloride 10 Meq/100 Ml) 10 meq in 100 mls @ 50 mls/hr IVPB ONCE ONE Stop: 11/24/17 11:59 Potassium Chloride (Potassium Chloride 10 Meq/100 Ml) 10 meq in 100 mls @ 50 mls/hr IVPB ONCE ONE Stop: 11/24/17 14:29 Dexmedetomidine HCl (Precedex 4 Mcg/Ml (100 Ml)) 400 mcg in 100 mls @ 3.629 mls /hr IV .Q24H PRN; Protocol; 0.2 MCG/KG/HR PRN Reason: Agitation Last Admin: 11/24/17 08:49 Dose: 0.3 mcg/kg/hr, 5.443 mls/hr Lorazepam (Ativan) 2 mg IVP Q4H PRN; Protocol PRN Reason: Anxiety Last Admin: 11/24/17 08:49 Dose: 2 mg Pantoprazole Sodium (Protonix Inj) 40 mg IVP DAILY [facility] Last Admin: 11/23/17 10:31 Dose: 40 mg Thiamine HCl (Vitamin B1 Inj) 100 mg IM DAILY [facility] Last Admin: 11/23/17 10:27 Dose: 100 mg - Labs Labs: 11/24/17 05:30 11/24/17 05:30 - Constitutional Appears: Non-toxic, No Acute Distress, Unkempt - Head Exam Head Exam: NORMAL INSPECTION - Eye Exam Eye Exam: Normal appearance, PERRL - ENT Exam ENT Exam: Mucous Membranes Dry - Neck Exam Neck Exam: Normal Inspection - Respiratory Exam Respiratory Exam: Clear to Ausculation Bilateral, NORMAL BREATHING PATTERN. absent: Rales, Rhonchi, Wheezes, Respiratory Distress Additional comments: tachypneic - Cardiovascular Exam Cardiovascular Exam: Tachycardia, +S1, +S2 - GI/Abdominal Exam GI & Abdominal Exam: Soft, Normal Bowel Sounds. absent: Distended, Tenderness - Exam Additional comments: mackenzie catheter in place - Extremities Exam Extremities Exam: Full ROM. absent: Pedal Edema Additional comments: b/l UE mittens - Back Exam Back Exam: NORMAL INSPECTION - Neurological Exam Neurological Exam: Altered Additional comments: sedated on Precedex - Skin Skin Exam: Dry, Warm Assessment and Plan - Assessment and Plan (Free Text) Assessment: 62 yo Male with a psych history of Bipolar disorder and ETOH withdrawals presenting from Psych unit 5B with tachycardia and agitation/AMS 2/ 2 ETOH withdrawal. Patient was admitted due to suicidal ideations and wanting to be in ETOH Rehab program. Currently in ICU on Precedex drip for ETOH withdrawal, agitation and DT's Plan: 1. Alcohol withdrawal and DT's - continue ICU monitoring - cont Precedex drip - cont banana bag w/ thiamine, folic acid and MV - Ativan PRN - CIWA protocol - seizure precautions - neuro checks - vital signs check - high fall risk - VS and labs reviewed - TSH was normal from last admission 2. Fevers - CXR showed no acute findings - repeat CXR 2-view AM - blood and urine cultures drawn - Vanc and Cefepime started empirically - c.diff negative - nares culture negative for MRSA 3. Electrolyte imbalances (hypokalemia and hypomangesesmia) - in setting of chronic ETOH abuse, will replete - cont to monitor daily 4. Suicidal ideation - 1:1 observation for patient safety - psych consulted, will take patient back to psych unit once stable - MARLYN eval 5. Bipolar dz - psych consulted, recs appreciated 6. PPX - Heparin for DVT ppx - NPO diet for aspiration Patient was seen, examined and discussed with attending, Dr. Shankar Traore PGY1 Pager # [phone] <Charlotte Chaparro - Last Filed: 11/24/17 16:57> Objective - Vital Signs/Intake and Output Vital Signs (last 24 hours): Temp Pulse Resp BP Pulse Ox 101.7 F H 135 H 41 H 176/107 H 95 11/24/17 13:04 11/24/17 10:30 11/24/17 06:50 11/24/17 10:30 11/24/17 06:50 Intake and Output: 11/24/17 11/24/17 06:59 18:59 Intake Total 1700 16 Output Total 300 Balance 1400 16 - Medications Medications: Current Medications Heparin Sodium (Porcine) (Heparin) 5,000 units SC Q12 SHIV PRN Reason: Protocol Last Admin: 11/24/17 09:26 Dose: 5,000 units Dexmedetomidine HCl (Precedex 4 Mcg/Ml (100 Ml)) 400 mcg in 100 mls @ 3.629 mls /hr IV .Q24H PRN; Protocol; 0.2 MCG/KG/HR PRN Reason: Agitation Last Titration: 11/24/17 10:00 Dose: 0.5 mcg/kg/hr, 9.072 mls/hr Cefepime HCl (Maxipime 1gm) 1 gm in 100 mls @ 100 mls/hr IVPB Q12 SHIV PRN Reason: Protocol Last Admin: 11/24/17 10:59 Dose: 100 mls/hr Vancomycin HCl (Vancomycin 500mg In Ns) 500 mg in 100 mls @ 200 mls/hr IVPB Q12 SHIV PRN Reason: Protocol Last Admin: 11/24/17 10:01 Dose: 200 mls/hr Folic Acid 1 mg/ Multivitamins /Vitamin C 10 ml/ Sodium Bicarbonate 75 meq/ Dextrose/Sodium Chloride 1,085.2 mls @ 100 mls/hr IV .[id number] [facility] Levalbuterol HCl (Xopenex) 0.63 mg IH [id number] PRN PRN Reason: Shortness of Breath Lorazepam (Ativan) 2 mg IVP Q4H SHIV PRN Reason: Protocol Pantoprazole Sodium (Protonix Inj) 40 mg IVP DAILY [facility] Last Admin: 11/24/17 09:25 Dose: 40 mg - Labs Labs: 11/24/17 05:30 11/24/17 05:30 PT 14.5 SECONDS (9.4-12.5) H 11/24/17 09:50 INR 1.26 (0.93-1.08) H 11/24/17 09:50 Attending/Attestation - Attestation I have personally seen and examined this patient.: Yes I have fully participated in the care of the patient.: Yes I have reviewed all pertinent clinical information, including history, physical exam and plan: Yes Notes (Text): 11/24/17 16:56 Attending note; Patient seen and examined with resident in ICU. Patient is agitated and restless. Tachycardic after stopping precedex drip. Started back on Precedex drip. Patient is a 62 year old male with history of bipolar disorder and alcohol abuse who was transferred from psych unit for management of alcohol withdrawal. Continue precedex drip, banana bag, ativan prn, CIWA protocol, seizure precautions and fall precautions. Continue 1:1. Patient is in delirium tremens. Monitor closely in ICU. Fever; rule out sepsis/aspiration. Dubose culture ordered. Started on vancomycin and cefepime. Repeat chest x-ray requested. Nothing by mouth for now. Upon discharge patient will follow up in [facility] clinic.
[2017-11-24] MEDS ORDERED: MULTIVITAMIN IV SCH (09:52)
[2017-11-24] MEDS ORDERED: [UNRECOGNIZED DRUG - OTHER] IV SCH (09:52)
[2017-11-24] MEDS ORDERED: Magnesium Sulfate 1 gm in D5W 1 GM/100 ML BAG IVPB ONE (09:52)
[2017-11-24] MEDS ORDERED: THIAMINE IV SCH (09:52)
[2017-11-24] MEDS: Thiamine 100 mg/ml Inj IM SCH (09:52)
[2017-11-24] MEDS ORDERED: FOLIC ACID IV SCH (09:52)
[2017-11-24] MEDS: Vancomycin 500mg in NS 500 MG/100 ML BAG IVPB SCH ×2 (10:01→21:37)
[2017-11-24] MEDS ORDERED: Metoprolol 1 mg/ml Inj IVP ONE (10:09)
[2017-11-24] MEDS ORDERED: Levalbuterol 0.63 MG/3 ML Inhal Soln UD IH PRN (10:37)
--- NOTE | 2017-11-24 10:45 | RAD ---
HISTORY: congestion COMPARISON: 11/21/2017 FINDINGS: LUNGS: No active pulmonary disease. PLEURA: No significant pleural effusion identified, no pneumothorax apparent. CARDIOVASCULAR: Mild cardiomegaly OSSEOUS STRUCTURES: No significant abnormalities. VISUALIZED UPPER ABDOMEN: Normal. OTHER FINDINGS: None. IMPRESSION: No active disease.
[2017-11-24 10:59] LABS: INR 1.26 (0.93-1.08); PROTHROMBIN TIME 14.5 SECONDS (9.4-12.5)
[2017-11-24] MEDS: Cefepime 1gm in NS 100ml 1 GM/100 ML BAG IVPB SCH ×2 (10:59→21:44)
[2017-11-24 12:55] LABS: ARTERIAL BLOOD GAS HCO3 18.1 mmol/L (21-28); ARTERIAL BLOOD GAS O2 CAPACITY 16.3 mL/dl (16-24); ARTERIAL BLOOD GAS O2 CONTENT 16.2 ML/dl (15-23); ARTERIAL BLOOD GAS O2 SAT 99.3 % (95-98); ARTERIAL BLOOD GAS PCO2 26 mm/Hg (35-45); ARTERIAL BLOOD GAS PH 7.45 (7.35-7.45); ARTERIAL BLOOD GAS TCO2 18.9 mmol.L (22-28)
--- NOTE | 2017-11-24 14:47 | CARD ---
APPROVED REPORT EKG Measurement Heart [id number] IA [id number] <Conclusion> Sinus tachycardia Nonspecific ST abnormality Abnormal ECG
[2017-11-24] MEDS: FOLIC ACID IV SCH (17:34)
[2017-11-24] MEDS: SODIUM BICARBONATE IV SCH (17:34)
[2017-11-24] MEDS: [UNRECOGNIZED DRUG - OTHER] IV SCH (17:34)
[2017-11-24] MEDS: MULTIVITAMIN IV SCH (17:34)
--- NOTE | 2017-11-24 19:50 | PN ---
DATE: SUBJECTIVE: The patient is a 62-year-old male with long debilitating history of alcohol use disorder. Initially, the patient was admitted on the medical side on 11/18/2017, was medically stable to be transferred to the psychiatric inpatient unit for possible suicidal ideation as well as depressive symptoms. The patient was transferred to the psychiatric inpatient unit on 11/20/2017. The patient was found to be in delirium tremens. On 11/21/2017, was transferred to the emergency room, then subsequently to Intensive Care Unit for management of alcohol withdrawal delirium. The patient was followed up today. The patient is in delirium stage, very restless. Vital signs are not stable. Temperature is 102, tachycardia of 135, blood pressure 176/107. Had collateral information from the resident. Medical team tried to wean the patient off from Precedex but the patient was very agitated, aggressive, required to have Precedex to be resumed. Currently, the patient is on Precedex, also he is on antibiotics as well as Ativan from p.r.n. medication will be given as 2 mg IV push q.4h. scheduled as well as Protonix 40 mg as well as vancomycin. LABORATORY DATA: Labs reviewed. Hemoglobin and hematocrit are 12.4 and 36.5. Coagulation reviewed. Chemistry reviewed. Patient's potassium is 3.1. AST and ALT elevated 238 and 109, alkaline phosphatase is 36. Urinalysis showed blood, benzodiazepines were positive. Microbiology reviewed. MRSA not detected. MENTAL STATUS EXAMINATION: This junior underwriter was not able to assess the patient's mental status because the patient is very confused, restless, trying to climb off the bed, seems to be in DT. IMPRESSION: Delirium tremens. The patient is in ICU right now. The patient has multiple medical issues, fever as well as tachycardic and elevated blood pressure, but they are related to delirium tremens, but empirically the patient is on antibiotics. The patient has electrolyte imbalance. PLAN: Continue current management. Continue current medications. This junior underwriter increased the dose of Ativan and gave a scheduled dose of Ativan q. 4 hours scheduled at least for 24 hours to see if it could help the patient with delirium tremens. Continue multivitamins, thiamine and folic acid, IV hydration. The patient is on antibiotics empirically. The patient currently is on one to one. We will continue monitoring the patient and advise accordingly. Should you have any questions, give me a call back. Thank you very much for letting me participate in care of your patient. Lois Trotter MD
[2017-11-25] MEDS: Dexmedetomidine 400mcg/100mL 400 MCG/100 ML BOTTLE IV PRN ×2 (04:29→09:28)
[2017-11-25 06:58] LABS: HEMOGLOBIN 11.1 g/dL (14.0-18.0); MEAN CELL VOLUME 88.2 fl (80.0-105.0); MEAN CORPUSCULAR HEMOGLOBIN 29.8 pg (25.0-35.0); MEAN CORPUSCULAR HGB CONC 33.8 g/dl (31.0-37.0); MEAN PLATELET VOLUME 9.9 fl (7.0-11.0); RBC 3.72 10^6/uL (3.5-6.1); WHITE BLOOD COUNT 5.5 10^3/ul (4.5-11.0)
[2017-11-25] MEDS ORDERED: Levalbuterol 0.63 MG/3 ML Inhal Soln UD IH PRN (07:32)
[2017-11-25] MEDS: SODIUM BICARBONATE IV SCH (07:34)
[2017-11-25] MEDS: [UNRECOGNIZED DRUG - OTHER] IV SCH (07:34)
[2017-11-25] MEDS: FOLIC ACID IV SCH (07:34)
[2017-11-25] MEDS: MULTIVITAMIN IV SCH (07:34)
[2017-11-25] MEDS: Levalbuterol 0.63 MG/3 ML Inhal Soln UD IH SCH ×3 (07:51→19:45)
[2017-11-25 08:00] LABS: ALB/GLOB RATIO 1.2 (1.1-1.8); ALBUMIN 3.1 g/dL (3.0-4.8); ALT/SGPT 107 U/L (7-56); AST/SGOT 167 U/L (17-59); BLOOD UREA NITROGEN 9 mg/dL (7-21); CALCIUM 8.5 mg/dL (8.4-10.5); GFR AFRICAN-AMERICAN > 60; GFR NON-AFRICAN AMERICAN > 60
--- NOTE | 2017-11-25 08:50 | RAD ---
HISTORY: r/o pneumonia COMPARISON: 11/24/2017 at 6:34 a.m. FINDINGS: LUNGS: No active pulmonary disease. PLEURA: Mild nonspecific elevation of the right hemidiaphragm. CARDIOVASCULAR: Normal. OSSEOUS STRUCTURES: No significant abnormalities. VISUALIZED UPPER ABDOMEN: Normal. OTHER FINDINGS: None. IMPRESSION: No active disease.
[2017-11-25] MEDS ORDERED: Dextrose 5%/0.9% NS 1,000 ML IV SCH (09:00)
[2017-11-25] MEDS: Vancomycin 500mg in NS 500 MG/100 ML BAG IVPB SCH ×2 (09:18→21:47)
[2017-11-25] MEDS: Cefepime 1gm in NS 100ml 1 GM/100 ML BAG IVPB SCH ×2 (09:54→21:53)
[2017-11-25 10:52] LABS: CK MB% 0.2 % (2.5-3.0)
--- NOTE | 2017-11-25 10:52 | CP.PCM.PN ---
Subjective - Date & Time of Evaluation Date of Evaluation: 11/25/17 Time of Evaluation: 07:15 - Subjective Subjective: Pt seen and examined, continues to be agitated, pulling things off. On Precedex drip Objective - Vital Signs/Intake and Output Vital Signs (last 24 hours): Temp Pulse Resp BP Pulse Ox 97.0 F L 61 23 111/61 99 11/25/17 03:22 11/25/17 06:00 11/25/17 06:00 11/25/17 06:00 11/25/17 06:00 Intake and Output: 11/25/17 11/25/17 06:59 18:59 Intake Total 1901 100 Output Total 250 Balance 1651 100 - Medications Medications: Current Medications Heparin Sodium (Porcine) (Heparin) 5,000 units SC Q12 SHIV PRN Reason: Protocol Last Admin: 11/25/17 09:19 Dose: 5,000 units Dexmedetomidine HCl (Precedex 4 Mcg/Ml (100 Ml)) 400 mcg in 100 mls @ 3.629 mls /hr IV .Q24H PRN; Protocol; 0.2 MCG/KG/HR PRN Reason: Agitation Last Admin: 11/25/17 09:28 Dose: 0.75 mcg/kg/hr, 13.608 mls/hr Cefepime HCl (Maxipime 1gm) 1 gm in 100 mls @ 100 mls/hr IVPB Q12 SHIV PRN Reason: Protocol Last Admin: 11/25/17 09:54 Dose: 100 mls/hr Vancomycin HCl (Vancomycin 500mg In Ns) 500 mg in 100 mls @ 200 mls/hr IVPB Q12 SHVI PRN Reason: Protocol Last Admin: 11/25/17 09:18 Dose: 200 mls/hr Potassium Chloride (Potassium Chloride 10 Meq/100 Ml) 10 meq in 100 mls @ 50 mls/hr IVPB ONCE ONE Stop: 11/25/17 12:07 Dextrose/Sodium Chloride (Dextrose 5%/0.9% Ns 1000 Ml) 1,000 mls @ 100 mls/hr IV .Q10H SH[facility] Last Admin: 11/25/17 09:22 Dose: 100 mls/hr Levalbuterol HCl (Xopenex) 0.63 mg IH TIDRESP PRN PRN Reason: Shortness of Breath Levalbuterol HCl (Xopenex) 0.63 mg IH [id number] [facility] Last Admin: 11/25/17 07:51 Dose: 0.63 mg Lorazepam (Ativan) 2 mg IVP Q4H SHIV PRN Reason: Protocol Last Admin: 11/25/17 08:09 Dose: 2 mg Pantoprazole Sodium (Protonix Inj) 40 mg IVP DAILY [facility] Last Admin: 11/25/17 09:19 Dose: 40 mg Ziprasidone (Geodon Inj) 10 mg IM Q12 PRN; Protocol PRN Reason: Agitation - Labs Labs: 11/25/17 05:30 11/25/17 05:30 PT 14.5 SECONDS (9.4-12.5) H 11/24/17 09:50 INR 1.26 (0.93-1.08) H 11/24/17 09:50 - Constitutional Appears: Non-toxic, Agitated, Confused - Eye Exam Eye Exam: Normal appearance - ENT Exam ENT Exam: Mucous Membranes Moist - Respiratory Exam Respiratory Exam: Clear to Ausculation Bilateral, NORMAL BREATHING PATTERN - Cardiovascular Exam Cardiovascular Exam: REGULAR RHYTHM, +S1, +S2 - GI/Abdominal Exam GI & Abdominal Exam: Soft, Normal Bowel Sounds - Extremities Exam Extremities Exam: Normal Inspection - Neurological Exam Neurological Exam: Altered Assessment and Plan - Assessment and Plan (Free Text) Assessment: 62yo male with PMHx of heavy EtOH abuse a/w EtOH withdrawal, DTs. Currently afebrile, HD stable, started on broad spectrum antibiotics yesterday, Procal negative. Continues to require Precedex drip. Continues to be combative agitated, unclear how much of DT component there is, and how much of psych component. Psychiatry following. Will obtain CT head, start on Geodon PRN as per psych. Delirium Tremens Alcohol Withdrawal Dehydration AMS Rhabdo Recommend: - supp o2 as needed - follow up UA, UCx, BCx - Broad spectrum antibiotics: Vanco, Cefepime - NPO - IVF hydration - Thiamine, Folic, MVT - Precedex drip, titrate off - Geodon PRN - CT head without contrast - 1:1 observation - follow up Psych - neurology consult - GI ppx - DVT ppx - Monitor in MICU crtical care time 35 minutes
[2017-11-25] MEDS ORDERED: Propofol 10 mg/ml 1,000 MG/100 ML VIAL ONE (11:39)
[2017-11-25] MEDS ORDERED: Rocuronium 10 mg/ml (5 ml) ONE (11:52)
[2017-11-25] MEDS ORDERED: Etomidate 20 mg/10ml Inj IV ONE (12:04)
[2017-11-25] MEDS ORDERED: Propofol 10 mg/ml Inj (20 ML) IVP ONE (12:22)
--- NOTE | 2017-11-25 12:24 | CARD ---
APPROVED REPORT EKG Measurement Heart [id number] IA [id number] <Conclusion> Normal sinus rhythm Junctional ST depression, probably normal Prolonged QT Abnormal ECG
--- NOTE | 2017-11-25 12:30 | PCM.PROC ---
Procedures Attestation:: I certify that I have explained the specified Operation(s) or Procedure(s), risks, benefits and reasonable alternatives to the Patient and/or other person responsible. The opportunity was given to ask questions and all questions answered - Intubation Time Out Performed: Yes Sedative: Etomidate, Other Laryngoscope: Glidescope ET Tube Size: 7.5 ET Tube Uncuffed: Yes ET Tube Secured at Depth: 22 ET Tube Secured Locarion: Teeth ET Tube Placement Confirmation: Visualized Passing Through Cords, Breath Sounds Equal Bilaterally, No Breath Sounds Over Epigastrum, Confirmation w/Capnometry Patient Tolerated Procedure: Well Procedure Immediate Complications: None
--- NOTE | 2017-11-25 12:31 | CP.PCM.PN ---
Subjective - Date & Time of Evaluation Date of Evaluation: 11/25/17 Time of Evaluation: 12:30 - Subjective Subjective: patient seen on afternoon rounds, continued to be tachycardic, diaphoretic, altered, with agitation and delirium tremens, despite Ativan and Precedex. Pt subsequently intubated for airway protection, and Propfol/Versed drip. Pt tolerated procedure well. CXR pending Objective - Vital Signs/Intake and Output Vital Signs (last 24 hours): Temp Pulse Resp BP Pulse Ox 97.0 F L 113 H 23 111/61 99 11/25/17 03:22 11/25/17 07:51 11/25/17 06:00 11/25/17 06:00 11/25/17 06:00 Intake and Output: 11/25/17 11/25/17 06:59 18:59 Intake Total 1901 100 Output Total 250 Balance 1651 100 - Medications Medications: Current Medications Heparin Sodium (Porcine) (Heparin) 5,000 units SC Q12 SHIV PRN Reason: Protocol Last Admin: 11/25/17 09:19 Dose: 5,000 units Cefepime HCl (Maxipime 1gm) 1 gm in 100 mls @ 100 mls/hr IVPB Q12 SHIV PRN Reason: Protocol Last Admin: 11/25/17 09:54 Dose: 100 mls/hr Vancomycin HCl (Vancomycin 500mg In Ns) 500 mg in 100 mls @ 200 mls/hr IVPB Q12 SHIV PRN Reason: Protocol Last Admin: 11/25/17 09:18 Dose: 200 mls/hr Dextrose/Sodium Chloride (Dextrose 5%/0.9% Ns 1000 Ml) 1,000 mls @ 100 mls/hr IV .Q10H [facility] Last Admin: 11/25/17 09:22 Dose: 100 mls/hr Propofol (Diprivan) 1,000 mg in 100 mls @ 2.177 mls/hr IV .Q24H PRN; Protocol; 5 MCG/KG/MIN PRN Reason: TITRATE PER MD ORDER Midazolam 100 mg/100ml in NS (Midazolam 100 Mg/100ml In Ns) 100 mg in 100 mls @ 1 mls/hr IV .Q24H PRN; Protocol; 1 MG/HR PRN Reason: Agitation Levalbuterol HCl (Xopenex) 0.63 mg IH TIDRESP PRN PRN Reason: Shortness of Breath Levalbuterol HCl (Xopenex) 0.63 mg IH [id number] [facility] Last Admin: 11/25/17 07:51 Dose: 0.63 mg Pantoprazole Sodium (Protonix Inj) 40 mg IVP DAILY [facility] Last Admin: 11/25/17 09:19 Dose: 40 mg Ziprasidone (Geodon Inj) 10 mg IM Q12 PRN; Protocol PRN Reason: Agitation - Labs Labs: 11/25/17 05:30 11/25/17 05:30 PT 14.5 SECONDS (9.4-12.5) H 11/24/17 09:50 INR 1.26 (0.93-1.08) H 11/24/17 09:50
[2017-11-25] MEDS: Midazolam 100 mg/100ml in NS 100 MG/100 ML SOL IV PRN (12:43)
[2017-11-25] MEDS: Propofol 10 mg/ml 1,000 MG/100 ML VIAL IV PRN ×3 (13:13→21:31)
--- NOTE | 2017-11-25 13:23 | RAD ---
HISTORY: intubation COMPARISON: 11/25/2017 FINDINGS: LUNGS: No active pulmonary disease. PLEURA: No significant pleural effusion identified, no pneumothorax apparent. CARDIOVASCULAR: Mild cardiomegaly OSSEOUS STRUCTURES: No significant abnormalities. VISUALIZED UPPER ABDOMEN: Normal. OTHER FINDINGS: Endotracheal and nasogastric tube in satisfactory position IMPRESSION: No active disease.
--- NOTE | 2017-11-25 14:11 | CP.PCM.PN ---
<Kevin Deleon - Last Filed: 11/25/17 15:07> Subjective - Date & Time of Evaluation Date of Evaluation: 11/25/17 Time of Evaluation: 07:50 - Subjective Subjective: Medicine progress note. Dr. Chaparro Patient continued to be restless throughout the night, tachycardic still. Currently on precedex drip. May need to be intubated later today for airway protection. Patient was also febrile yesterday afternoon to 101.7F. Patient only withdraws to painful stimuli Objective - Vital Signs/Intake and Output Vital Signs (last 24 hours): Temp Pulse Resp BP Pulse Ox 97.0 F L 113 H 20 111/61 98 11/25/17 03:22 11/25/17 07:51 11/25/17 12:30 11/25/17 06:00 11/25/17 12:30 Intake and Output: 11/25/17 11/25/17 06:59 18:59 Intake Total 1901 100 Output Total 250 Balance 1651 100 - Medications Medications: Current Medications Heparin Sodium (Porcine) (Heparin) 5,000 units SC Q12 SHIV PRN Reason: Protocol Last Admin: 11/25/17 09:19 Dose: 5,000 units Cefepime HCl (Maxipime 1gm) 1 gm in 100 mls @ 100 mls/hr IVPB Q12 SHIV PRN Reason: Protocol Last Admin: 11/25/17 09:54 Dose: 100 mls/hr Vancomycin HCl (Vancomycin 500mg In Ns) 500 mg in 100 mls @ 200 mls/hr IVPB Q12 SHIV PRN Reason: Protocol Last Admin: 11/25/17 09:18 Dose: 200 mls/hr Dextrose/Sodium Chloride (Dextrose 5%/0.9% Ns 1000 Ml) 1,000 mls @ 100 mls/hr IV .Q10H SHIV Last Admin: 11/25/17 09:22 Dose: 100 mls/hr Propofol (Diprivan) 1,000 mg in 100 mls @ 2.177 mls/hr IV .Q24H PRN; Protocol; 5 MCG/KG/MIN PRN Reason: TITRATE PER MD ORDER Last Admin: 11/25/17 13:13 Dose: 50 mcg/kg/min, 21.773 mls/hr Midazolam 100 mg/100ml in NS (Midazolam 100 Mg/100ml In Ns) 100 mg in 100 mls @ 1 mls/hr IV .Q24H PRN; Protocol; 1 MG/HR PRN Reason: Agitation Last Admin: 11/25/17 12:43 Dose: 1 mg/hr, 1 mls/hr Levalbuterol HCl (Xopenex) 0.63 mg IH TIDRESP PRN PRN Reason: Shortness of Breath Levalbuterol HCl (Xopenex) 0.63 mg IH [id number] SHIV Last Admin: 11/25/17 13:20 Dose: 0.63 mg Pantoprazole Sodium (Protonix Inj) 40 mg IVP DAILY SHIV Last Admin: 11/25/17 09:19 Dose: 40 mg Ziprasidone (Geodon Inj) 10 mg IM Q12 PRN; Protocol PRN Reason: Agitation - Labs Labs: 11/25/17 05:30 11/25/17 05:30 PT 14.5 SECONDS (9.4-12.5) H 11/24/17 09:50 INR 1.26 (0.93-1.08) H 11/24/17 09:50 - Constitutional Appears: Older Than Stated Age, Cachectic, Other (diaphoretic) - Head Exam Head Exam: ATRAUMATIC, NORMAL INSPECTION, NORMOCEPHALIC - Respiratory Exam Respiratory Exam: Clear to Ausculation Bilateral. absent: Accessory Muscle Use , Wheezes - Cardiovascular Exam Cardiovascular Exam: RRR. absent: JVD - GI/Abdominal Exam GI & Abdominal Exam: Soft. absent: Firm, Guarding, Rigid, Tenderness - Neurological Exam Additional comments: sedated on precedex drip currently. Not responsive. Withdraws to painful stimuli. - Skin Skin Exam: Diaphoretic Assessment and Plan - Assessment and Plan (Free Text) Assessment: 62yo M with PMHx of Bipolar disorder and ETOH abuse in ICU for DTs. Patient initially admitted to psych for suicidal ideation then transferred to in- patient due to severe ETOH withdrawal, DTs requiring high-dose sedation. 1. ETOH withdrawal with Delirium Tremens - On precedex drip. may switch to versed drip/propafol drip. ICU team managing - Possible intubation for airway protection later today. ICU team managing - Continue daily banana bag - CIWA protocol - Ativan prn 2. Altered Mental Status - Psych following, appreciate recs - Geodon prn - f/u CT head - neuro consulted, Dr. Rosenberg, appreciate recs 3. Fever of unknown origin - ID consulted, appreciate recs - on broad spectrum abx: Vanc/Cefepime - f/u blood and urine cxs 4. Electrolyte imbalance - monitor and replete as needed 5. Suicidal Ideation - 1:1 observation - Psych following 6. PPx - SCDs - Aspiration precautions - Seizure precautions - Heparin SC - Protonix Further recs as per Dr. Shankar Deleon PGY1 <Charlotte Chaparro - Last Filed: 11/25/17 17:03> Objective - Vital Signs/Intake and Output Vital Signs (last 24 hours): Temp Pulse Resp BP Pulse Ox 97.0 F L 77 20 121/66 100 11/25/17 03:22 11/25/17 15:40 11/25/17 12:30 11/25/17 15:40 11/25/17 15:40 Intake and Output: 11/25/17 11/25/17 06:59 18:59 Intake Total 1901 200 Output Total 250 Balance 1651 200 - Medications Medications: Current Medications Heparin Sodium (Porcine) (Heparin) 5,000 units SC Q12 SHIV PRN Reason: Protocol Last Admin: 11/25/17 09:19 Dose: 5,000 units Cefepime HCl (Maxipime 1gm) 1 gm in 100 mls @ 100 mls/hr IVPB Q12 SHIV PRN Reason: Protocol Last Admin: 11/25/17 09:54 Dose: 100 mls/hr Vancomycin HCl (Vancomycin 500mg In Ns) 500 mg in 100 mls @ 200 mls/hr IVPB Q12 SHIV PRN Reason: Protocol Last Admin: 11/25/17 09:18 Dose: 200 mls/hr Dextrose/Sodium Chloride (Dextrose 5%/0.9% Ns 1000 Ml) 1,000 mls @ 100 mls/hr IV .Q10H SHIV Last Admin: 11/25/17 09:22 Dose: 100 mls/hr Propofol (Diprivan) 1,000 mg in 100 mls @ 2.177 mls/hr IV .Q24H PRN; Protocol; 5 MCG/KG/MIN PRN Reason: TITRATE PER MD ORDER Last Admin: 11/25/17 15:45 Dose: 40 mcg/kg/min, 17.418 mls/hr Midazolam 100 mg/100ml in NS (Midazolam 100 Mg/100ml In Ns) 100 mg in 100 mls @ 1 mls/hr IV .Q24H PRN; Protocol; 1 MG/HR PRN Reason: Agitation Last Admin: 11/25/17 12:43 Dose: 1 mg/hr, 1 mls/hr Levalbuterol HCl (Xopenex) 0.63 mg IH TIDRESP PRN PRN Reason: Shortness of Breath Levalbuterol HCl (Xopenex) 0.63 mg IH [id number] SHIV Last Admin: 11/25/17 13:20 Dose: 0.63 mg Pantoprazole Sodium (Protonix Inj) 40 mg IVP DAILY [facility] Last Admin: 11/25/17 09:19 Dose: 40 mg - Labs Labs: 11/25/17 05:30 11/25/17 05:30 PT 14.5 SECONDS (9.4-12.5) H 11/24/17 09:50 INR 1.26 (0.93-1.08) H 11/24/17 09:50 Attending/Attestation - Attestation I have personally seen and examined this patient.: Yes I have fully participated in the care of the patient.: Yes I have reviewed all pertinent clinical information, including history, physical exam and plan: Yes Notes (Text): 11/25/17 16:56 Attending note; Patient seen and examined with resident in ICU. Patient is agitated and restless. Still on Precedex drip. Patient is a 62 year old male with history of bipolar disorder and alcohol abuse who was transferred from psych unit for management of alcohol withdrawal. Continue precedex drip, banana bag, ativan prn, CIWA protocol, seizure precautions and fall precautions. Continue 1:1. Patient is in delirium tremens. 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 Patient will be intubated for delirium tremens. Fever; resolving. blood culture is negative. C. difficile negative. MRSA negative. Started on vancomycin and cefepime. Repeat chest x-ray Is negative. psychiatric evaluation appreciated. Continue Geodon prn. case discussed with pediatric social worker in detail. Upon discharge patient will follow up in [facility] clinic. 11/25/17 17:02
[2017-11-25 16:21] LABS: ARTERIAL BLOOD GAS HCO3 27.1 mmol/L (21-28); ARTERIAL BLOOD GAS HEMOGLOBIN 11.4 g/dL (11.7-17.4); ARTERIAL BLOOD GAS O2 SAT 100.2 % (95-98); ARTERIAL BLOOD GAS PCO2 39 mm/Hg (35-45); ARTERIAL BLOOD GAS PH 7.45 (7.35-7.45); ARTERIAL BLOOD GAS TCO2 28.3 mmol.L (22-28)
--- NOTE | 2017-11-25 18:12 | CP.PCM.CON ---
History of Present Illness - History of Present Illness History of Present Illness: Infectious Disease Consultation: November 25, 2017 62 yo male with medical history that includes Bipolar disorder and alcohol abuse presented with EtOH intoxication and now in withdrawals. Originally in the psych floor for bipolar disease treatment and suicidal ideation on 11/21/2017. The patient required intubation today. ID called for possible aspiration pneumonia. No fevers, leukocytosis at this time. PMHx: Bipolar disorder and alcohol abuse. PSHx: As per chart, thymus surgery?, left inguinal hernia repair? 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 No tobacco or illicit drug use Heavy EtOH use (Bacardi and 96 oz of beer) Active Medications Heparin Sodium (Porcine) (Heparin) 5,000 units SC Q12 SHIV PRN Reason: Protocol Last Admin: 11/25/17 09:19 Dose: 5,000 units Cefepime HCl (Maxipime 1gm) 1 gm in 100 mls @ 100 mls/hr IVPB Q12 SHIV PRN Reason: Protocol Last Admin: 11/25/17 09:54 Dose: 100 mls/hr Vancomycin HCl (Vancomycin 500mg In Ns) 500 mg in 100 mls @ 200 mls/hr IVPB Q12 SHIV PRN Reason: Protocol Last Admin: 11/25/17 09:18 Dose: 200 mls/hr Dextrose/Sodium Chloride (Dextrose 5%/0.9% Ns 1000 Ml) 1,000 mls @ 100 mls/hr IV .Q10H SHIV Last Admin: 11/25/17 09:22 Dose: 100 mls/hr Propofol (Diprivan) 1,000 mg in 100 mls @ 2.177 mls/hr IV .Q24H PRN; Protocol; 5 MCG/KG/MIN PRN Reason: TITRATE PER MD ORDER Last Admin: 11/25/17 15:45 Dose: 40 mcg/kg/min, 17.418 mls/hr Midazolam 100 mg/100ml in NS (Midazolam 100 Mg/100ml In Ns) 100 mg in 100 mls @ 1 mls/hr IV .Q24H PRN; Protocol; 1 MG/HR PRN Reason: Agitation Last Admin: 11/25/17 12:43 Dose: 1 mg/hr, 1 mls/hr Levalbuterol HCl (Xopenex) 0.63 mg IH TIDRESP PRN PRN Reason: Shortness of Breath Levalbuterol HCl (Xopenex) 0.63 mg IH [id number] [facility] Last Admin: 11/25/17 13:20 Dose: 0.63 mg Pantoprazole Sodium (Protonix Inj) 40 mg IVP DAILY [facility] Last Admin: 11/25/17 09:19 Dose: 40 mg Family Hx: Unable to Obtain ROS: Unable to Obtain Past Patient History - Infectious Disease Hx of Infectious Diseases: None - Past Medical History & Family History Past Medical History?: Yes - Past Social History Smoking Status: Never Smoked - CARDIAC Hx Cardiac Disorders: No Hx Angina: No Hx Atrial Fibrillation: No Hx Cardia Arrhythmia: No Hx Circulatory Problems: No Hx Congestive Heart Failure: No Hx Heart Attack: No Hx Heart Murmur: No Hx Heart Transplant: No Hx Hypertension: No Hx Hypotension: No Hx Internal Defibrillator: No Hx Mitral Valve Prolapse: No Hx Pacemaker: No Hx Peripheral Edema: No Hx Peripheral Vascular Disease: No - PULMONARY Hx Respiratory Disorders: No - NEUROLOGICAL Hx Neurological Disorder: No - HEENT Hx HEENT Problems: No - RENAL Hx Chronic Kidney Disease: No - ENDOCRINE/METABOLIC Hx Endocrine Disorders: Yes Hx Diabetes Mellitus Type 1: Yes Hx Diabetes Mellitus Type 2: Yes - HEMATOLOGICAL/ONCOLOGICAL Hx Blood Disorders: No - INTEGUMENTARY Hx Dermatological Problems: No - MUSCULOSKELETAL/RHEUMATOLOGICAL Hx Musculoskeletal Disorders: No Hx Falls: Yes - GASTROINTESTINAL Hx Gastrointestinal Disorders: No Hx Gastroesophageal Reflux: Yes - GENITOURINARY/GYNECOLOGICAL Hx Genitourinary Disorders: No - PSYCHIATRIC Hx Psychophysiologic Disorder: No Hx Anxiety: Yes Hx Bipolar Disorder: Yes Hx Depression: Yes Hx Substance Use: No - SURGICAL HISTORY Other/Comment: L inguinal hernia repair. ?thymus - ANESTHESIA Hx Anesthesia: No Hx Anesthesia Reactions: No Hx Malignant Hyperthermia: No Meds Allergies/Adverse Reactions: Allergies Allergy/AdvReac Type Severity Reaction Status Date / Time No Known Allergies Allergy Verified 11/21/17 12:05 - Medications Medications: Current Medications Heparin Sodium (Porcine) (Heparin) 5,000 units SC Q12 SHIV PRN Reason: Protocol Last Admin: 11/25/17 09:19 Dose: 5,000 units Cefepime HCl (Maxipime 1gm) 1 gm in 100 mls @ 100 mls/hr IVPB Q12 SHIV PRN Reason: Protocol Last Admin: 02/06/18 09:54 Dose: 100 mls/hr Vancomycin HCl (Vancomycin 500mg In Ns) 500 mg in 100 mls @ 200 mls/hr IVPB Q12 SHIV PRN Reason: Protocol Last Admin: 11/25/17 09:18 Dose: 200 mls/hr Dextrose/Sodium Chloride (Dextrose 5%/0.9% Ns 1000 Ml) 1,000 mls @ 100 mls/hr IV .Q10H [facility] Last Admin: 11/25/17 09:22 Dose: 100 mls/hr Propofol (Diprivan) 1,000 mg in 100 mls @ 2.177 mls/hr IV .Q24H PRN; Protocol; 5 MCG/KG/MIN PRN Reason: TITRATE PER MD ORDER Last Admin: 11/25/17 15:45 Dose: 40 mcg/kg/min, 17.418 mls/hr Midazolam 100 mg/100ml in NS (Midazolam 100 Mg/100ml In Ns) 100 mg in 100 mls @ 1 mls/hr IV .Q24H PRN; Protocol; 1 MG/HR PRN Reason: Agitation Last Admin: 11/25/17 12:43 Dose: 1 mg/hr, 1 mls/hr Levalbuterol HCl (Xopenex) 0.63 mg IH TIDRESP PRN PRN Reason: Shortness of Breath Levalbuterol HCl (Xopenex) 0.63 mg IH [id number] [facility] Last Admin: 11/25/17 13:20 Dose: 0.63 mg Pantoprazole Sodium (Protonix Inj) 40 mg IVP DAILY [facility] Last Admin: 11/25/17 09:19 Dose: 40 mg Physical Exam - Constitutional Appears: Non-toxic, In Acute Distress, Chronically Ill - Head Exam Additional comments: intubated and ventilated. - Eye Exam Eye Exam: EOMI, PERRL Pupil Exam: NORMAL ACCOMODATION, PERRL - ENT Exam ENT Exam: Mucous Membranes Moist, Normal External Ear Exam, TM's Normal Bilaterally - Neck Exam Neck exam: Positive for: Full Rom, Normal Inspection Additional comments: intubated and ventilated. - Respiratory Exam Respiratory Exam: Clear to Auscultation Bilateral, NORMAL BREATHING PATTERN. absent: Rales, Rhonchi, Wheezes - Cardiovascular Exam Cardiovascular Exam: Tachycardia, +S1, +S2 - GI/Abdominal Exam GI & Abdominal Exam: Normal Bowel Sounds, Soft. absent: Distended, Tenderness - Extremities Exam Additional comments: mild edema. - Neurological Exam Additional comments: intubated, ventilated, sedated. - Skin Skin Exam: Intact, Normal Color Results - Vital Signs Recent Vital Signs: Last Vital Signs Temp 97.0 F L 11/25/17 03:22 Pulse 77 11/25/17 15:40 Resp 20 11/25/17 12:30 BP 121/66 11/25/17 15:40 Pulse Ox 100 11/25/17 15:40 - Labs Result Diagrams: 11/25/17 05:30 11/25/17 05:30 Labs: Laboratory Results - last 24 hr 11/24/17 11/25/17 11/25/17 18:13 00:35 05:30 WBC 5.5 D RBC 3.72 Hgb 11.1 L Hct 32.8 L MCV 88.2 MCH 29.8 MCHC 33.8 RDW 14.0 Plt Count 215 MPV 9.9 pCO2 pO2 HCO3 ABG pH ABG Total CO2 ABG O2 Saturation ABG O2 Content ABG Base Excess ABG Hemoglobin ABG Carboxyhemoglobin POC ABG HHb (Measured) ABG Methemoglobin ABG O2 Capacity Hgb O2 Saturation FiO2 Sodium Potassium Chloride Carbon Dioxide Anion Gap BUN Creatinine Est GFR ( Amer) Est GFR (Non-Af Amer) POC Glucose (mg/dL) 110 103 Random Glucose Calcium Phosphorus Magnesium Total Bilirubin AST ALT Alkaline Phosphatase Total Creatine Kinase CK-MB (CK-2) CK-MB (CK-2) % Total Protein Albumin Globulin Albumin/Globulin Ratio 11/25/17 11/25/17 11/25/17 05:30 05:30 06:07 WBC RBC Hgb Hct MCV MCH MCHC RDW Plt Count MPV pCO2 pO2 HCO3 ABG pH ABG Total CO2 ABG O2 Saturation ABG O2 Content ABG Base Excess ABG Hemoglobin ABG Carboxyhemoglobin POC ABG HHb (Measured) ABG Methemoglobin ABG O2 Capacity Hgb O2 Saturation FiO2 Sodium 146 Potassium 3.0 L Chloride 109 H Carbon Dioxide 26 Anion Gap 14 BUN 9 Creatinine 0.7 L Est GFR ( Amer) > 60 Est GFR (Non-Af Amer) > 60 POC Glucose (mg/dL) 132 H Random Glucose 118 H Calcium 8.5 Phosphorus 3.4 Magnesium 2.0 Total Bilirubin 0.8 AST 167 H D ALT 107 H Alkaline Phosphatase 33 L Total Creatine Kinase 2833 H CK-MB (CK-2) 7.0 H CK-MB (CK-2) % 0.2 L Total Protein 5.6 L Albumin 3.1 Globulin 2.5 Albumin/Globulin Ratio 1.2 11/25/17 11/25/17 11:28 16:18 WBC RBC Hgb Hct MCV MCH MCHC RDW Plt Count MPV pCO2 39 pO2 209.0 H HCO3 27.1 ABG pH 7.45 ABG Total CO2 28.3 H ABG O2 Saturation 100.2 H ABG O2 Content 16.0 ABG Base Excess 2.9 ABG Hemoglobin 11.4 L ABG Carboxyhemoglobin 1.8 H POC ABG HHb (Measured) -0.2 L ABG Methemoglobin 1.6 ABG O2 Capacity 16.0 Hgb O2 Saturation 96.8 FiO2 60.0 Sodium Potassium Chloride Carbon Dioxide Anion Gap BUN Creatinine Est GFR ( Amer) Est GFR (Non-Af Amer) POC Glucose (mg/dL) 98 Random Glucose Calcium Phosphorus Magnesium Total Bilirubin AST ALT Alkaline Phosphatase Total Creatine Kinase CK-MB (CK-2) CK-MB (CK-2) % Total Protein Albumin Globulin Albumin/Globulin Ratio Assessment & Plan - Assessment and Plan (Free Text) Assessment: 62 yo male with EtOH abuse. Developed EtOH withdrawal and now required intubation and ventilation. The patient was being evaluated by ID for potential aspiration. The patient is currently on Cefepime and Vancomycin. If aspiration is a significant concern, would either add Flagyl IV or switch Cefepime to Meropenem or Zosyn. Febrile yesterday up to 102 F. Afebrile today. No leukocytosis. No findings on Chest X-ray. Supportive care. Procalcitonin is 0.14 which is low. More likely secondary to the EtOH withdrawal and Delirium Tremens. Case discussed with team. From ID point of view, would continue Cefepime and Vancomycin for now. Supportive care. Thank you for allowing me to participate in the care of the patient, we will follow with you.
--- NOTE | 2017-11-25 20:45 | PN ---
DATE: SUBJECTIVE: The patient was seen and examined today. The patient is now not doing better. The patient is still in confused stage. The patient was found to have rigidity. Patient had episodes of elevated temperature 100.5 on . The patient also has episodes of tachycardia. The patient is on propofol. This policy writer sales also started a scheduled dose of Ativan, which was discontinued probably for medical reasons or because the patient needs to have EEG. Labs reviewed, most recent from today. Hemoglobin and hematocrit are 11.1 and 32.8. Coagulation reviewed. Blood gas reviewed. Chemistry reviewed. CPK was ordered today, which was 2833. The patient is still on one-to-one. MENTAL STATUS EXAMINATION: The patient appears to be restless, constantly moving, very rigid, very confused and sweating. This policy writer sales checked the previous medication list. The patient was on Geodon 20 mg as well as 10 mg on 11/21/2017. On 11/20/2017, Haldol 5 mg IM was given to the patient. At the same day, Haldol 10 mg and 2 mg were given to the patient. Also, by the end of October, the patient was on Risperdal higher doses. The patient also is on Geodon at the present moment, which will be suggested to be on hold. The patient also got Haldol 2 mg on 11/23/2017. High doses of antipsychotic medication could give NMS symptoms for this patient. Impression: Most likely the patient is in delirium tremens. NMS also cannot be excluded. PLAN: Continue current management. This policy writer sales discussed case with over the phone. Geodon is on hold. Vital signs need to be monitored. Also, the patient is on propofol. CPK will be checked tomorrow, and as per ICU physician, they would consider dantrolene if the patient will be not improving, if CPK will be elevated and if the patient would have fever. This policy writer sales suggested Neurology team to be involved. We will follow up and advise accordingly. Thank you very much for letting me participate in the care of your patient. Please consider resuming benzodiazepines. Lois Trotter MD [facility] # [id number] [facility]
[2017-11-25] MEDS: Dextrose 5%/0.9% NS 1,000 ML IV SCH (21:41)
[2017-11-26] MEDS: Levalbuterol 0.63 MG/3 ML Inhal Soln UD IH SCH ×4 (01:44→20:04)
[2017-11-26] MEDS: Propofol 10 mg/ml 1,000 MG/100 ML VIAL IV PRN ×3 (02:37→14:00)
[2017-11-26] MEDS: Midazolam 100 mg/100ml in NS 100 MG/100 ML SOL IV PRN (04:57)
[2017-11-26 05:33] LABS: ARTERIAL BLOOD GAS HCO3 25.6 mmol/L (21-28); ARTERIAL BLOOD GAS HEMOGLOBIN 11.1 g/dL (11.7-17.4); ARTERIAL BLOOD GAS O2 CAPACITY 15.5 mL/dl (16-24); ARTERIAL BLOOD GAS O2 CONTENT 15.4 ML/dl (15-23); ARTERIAL BLOOD GAS O2 SAT 99.6 % (95-98); ARTERIAL BLOOD GAS PCO2 36 mm/Hg (35-45); ARTERIAL BLOOD GAS PH 7.46 (7.35-7.45); ARTERIAL BLOOD GAS TCO2 26.7 mmol.L (22-28)
[2017-11-26] MEDS: Dextrose 5%/0.9% NS 1,000 ML IV SCH (05:52)
--- NOTE | 2017-11-26 07:18 | CP.CCUPN ---
<Rosa Maria Acosta - Last Filed: 11/26/17 11:27> CCU Subjective - Physician Review Subjective (Free Text): 11/26/17 08:34 Patient seen and examined at bedside. Nursing reported no acute events overnight. Yesterday events noted- patient was intubated for airway protection and placed on vent (35, 5, 18, 400). Currently sedated on midazolman gtt @ 5 and diprivan gtt @ 40. Patient is comfortable on sedation and hemodynamically stable, although tachycardic. UO 125cc in 2 hours since this AM and has had 1 BM. Complete ROS unobtainable. 11/26/17 11:27 Patient started on precedex gtt and continued on diprivan. Versed d/c. Fluids changed to 1/2NS @ 100cc/hr Critical Care Time Spent (in minutes): 45 CCU Objective - Vital Signs / Intake & Output Vital Signs (Last 4 hours): Vital Signs Pulse BP Pulse Ox 11/26/17 06:00 92 H 151/87 H 98 11/26/17 05:00 91 H 144/82 97 11/26/17 04:00 94 H 145/83 97 Intake and Output (Last 8hrs): Intake & Output 11/25/17 11/26/17 11/26/17 22:59 06:59 14:59 Intake Total 2123 200 Output Total 900 Balance 1223 200 Intake: IV 2123 200 Left Hand 723 Right Forearm 1200 Output: Urine 500 Urine, Voided 500 Stool 400 Other: # Bowel Movements 1 - Physical Exam Head: Positive for: Atraumatic, Normocephalic Pupils: Positive for: PERRL Conjunctiva: Positive for: Normal. Negative for: Injected, Icteric Mouth: Positive for: Normal Teeth, Other (mild dry oral mucosa, ET tube in place ) Nose (External): Positive for: Atraumatic, Other (NGT in place) Nose (Internal): Positive for: Normal Inspection Neck: Positive for: Trachea Midline. Negative for: MIDLINE TENDERNESS Respiratory/Chest: Positive for: Good Air Exchange, Other (intubated on vent (35 , 5, 18, 400)). Negative for: Accessory Muscle Use, Wheezes, Rales, Retracting , Rhonchi, Tachypneic Cardiovascular: Positive for: Normal S1, S2, Tachycardic. Negative for: Murmurs Abdomen: Positive for: Normal Bowel Sounds. Negative for: Tenderness, Distention, Peritoneal Signs, Rebound, Guarding Back: Positive for: Normal Inspection. Negative for: Midline Tenderness Upper Extremity: Positive for: Normal Inspection, NORMAL PULSES. Negative for: Cyanosis, Edema Lower Extremity: Positive for: Normal Inspection, NORMAL PULSES. Negative for: Edema Neurological: Positive for: Other (sedated on midazolam and diprivan) Skin: Positive for: Warm, Dry, Normal Color Psychiatric: Positive for: Other (sedated). Negative for: Alert, Oriented x 3, Normal Insight, Normal Concentration - Medications Active Medications: Active Medications Generic Name Dose Route Start Last Admin Trade Name Freq PRN Reason Stop Dose Admin Heparin Sodium (Porcine) 5,000 units 11/21/17 22:00 11/25/17 22:06 Heparin SC 5,000 units Q12 SHIV Administration Protocol Cefepime HCl 1 gm in 100 mls @ 100 mls/hr 11/24/17 10:00 11/25/17 21:53 Maxipime 1gm IVPB 100 mls/hr Q12 SHIV Administration Protocol Vancomycin HCl 500 mg in 100 mls @ 200 mls/hr 11/24/17 10:00 11/25/17 21:47 Vancomycin 500mg In Ns IVPB 200 mls/hr Q12 SHIV Administration Protocol Propofol 1,000 mg in 100 mls @ 2.177 mls/hr 11/25/17 12:22 11/26/17 02:37 Diprivan IV 40 mcg/kg/min .Q24H PRN 17.418 mls/hr TITRATE PER MD ORDER Administration Protocol 5 MCG/KG/MIN Midazolam 100 mg/100ml in NS 100 mg in 100 mls @ 1 mls/hr 11/25/17 12:22 05/06 05:03 Midazolam 100 Mg/100ml In Ns IV 5 mg/hr .Q24H PRN 5 mls/hr Agitation Titration Protocol 1 MG/HR Dextrose/Sodium Chloride 1,000 mls @ 150 mls/hr 11/25/17 20:11 11/26/17 05:52 Dextrose 5%/0.9% Ns 1000 Ml IV 150 mls/hr .[id number] SHIV Administration Levalbuterol HCl 0.63 mg 11/25/17 07:32 Xopenex IH TIDRESP PRN Shortness of Breath Levalbuterol HCl 0.63 mg 11/25/17 08:00 11/26/17 01:44 Xopenex IH 0.63 mg [id number] SHIV Administration Pantoprazole Sodium 40 mg 11/22/17 10:00 11/25/17 09:19 Protonix Inj IVP 40 mg DAILY SHIV Administration - Patient Studies Lab Studies: Microbiology Studies 11/24/17 10:00 Blood Culture - Preliminary Blood-Venous NO GROWTH AFTER 24 HOURS 11/24/17 10:30 Blood Culture - Preliminary Blood-Venous NO GROWTH AFTER 24 HOURS Lab Studies 11/26/17 11/26/17 11/25/17 Range/Units 06:07 05:25 23:59 WBC (4.5-11.0) 10^3/ul RBC (3.5-6.1) 10^6/uL Hgb (14.0-18.0) g/dL Hct (42.0-52.0) % MCV (80.0-105.0) fl MCH (25.0-35.0) pg MCHC (31.0-37.0) g/dl RDW (11.5-14.5) % Plt Count (120.0-450.0) 10^3/uL MPV (7.0-11.0) fl pCO2 36 (35-45) mm/Hg pO2 144.0 H (80-100) mm/Hg HCO3 25.6 (21-28) mmol/L ABG pH 7.46 H (7.35-7.45) ABG Total CO2 26.7 (22-28) mmol.L ABG O2 Saturation 99.6 H (95-98) % ABG O2 Content 15.4 (15-23) ML/dl ABG Base Excess 1.9 (-2.0-3.0) mmol/L ABG Hemoglobin 11.1 L (11.7-17.4) g/dL ABG Carboxyhemoglobin 1.8 H (0.5-1.5) % POC ABG HHb (Measured) 0.4 (0-5) % ABG Methemoglobin 1.2 (0.0-3.0) % ABG O2 Capacity 15.5 L (16-24) mL/dl Hgb O2 Saturation 96.6 (95.0-98.0) % FiO2 35.0 % Sodium (132-148) mmol/L Potassium (3.6-5.0) mmol/L Chloride (98-107) mmol/L Carbon Dioxide (21-33) mmol/L Anion Gap (10-20) BUN (7-21) mg/dL Creatinine (0.8-1.5) mg/dl Est GFR ( Amer) Est GFR (Non-Af Amer) POC Glucose (mg/dL) 125 H 99 (65-110) mg/dL Random Glucose (70-110) mg/dL Calcium (8.4-10.5) mg/dL Phosphorus (2.5-4.5) mg/dL Magnesium (1.7-2.2) mg/dL Total Bilirubin (0.2-1.3) mg/dL AST (17-59) U/L ALT (7-56) U/L Alkaline Phosphatase (38-126) U/L Total Creatine Kinase (35-230) U/L CK-MB (CK-2) (0.0-3.6) ng/mL CK-MB (CK-2) % (2.5-3.0) % Total Protein (5.8-8.3) g/dL Albumin (3.0-4.8) g/dL Globulin gm/dL Albumin/Globulin Ratio (1.1-1.8) 11/25/17 11/25/17 11/25/17 Range/Units 18:11 16:18 11:28 WBC (4.5-11.0) 10^3/ul RBC (3.5-6.1) 10^6/uL Hgb (14.0-18.0) g/dL Hct (42.0-52.0) % MCV (80.0-105.0) fl MCH (25.0-35.0) pg MCHC (31.0-37.0) g/dl RDW (11.5-14.5) % Plt Count (120.0-450.0) 10^3/uL MPV (7.0-11.0) fl pCO2 39 (35-45) mm/Hg pO2 209.0 H (80-100) mm/Hg HCO3 27.1 (21-28) mmol/L ABG pH 7.45 (7.35-7.45) ABG Total CO2 28.3 H (22-28) mmol.L ABG O2 Saturation 100.2 H (95-98) % ABG O2 Content 16.0 (15-23) ML/dl ABG Base Excess 2.9 (-2.0-3.0) mmol/L ABG Hemoglobin 11.4 L (11.7-17.4) g/dL ABG Carboxyhemoglobin 1.8 H (0.5-1.5) % POC ABG HHb (Measured) -0.2 L (0-5) % ABG Methemoglobin 1.6 (0.0-3.0) % ABG O2 Capacity 16.0 (16-24) mL/dl Hgb O2 Saturation 96.8 (95.0-98.0) % FiO2 60.0 % Sodium (132-148) mmol/L Potassium (3.6-5.0) mmol/L Chloride (98-107) mmol/L Carbon Dioxide (21-33) mmol/L Anion Gap (10-20) BUN (7-21) mg/dL Creatinine (0.8-1.5) mg/dl Est GFR ( Amer) Est GFR (Non-Af Amer) POC Glucose (mg/dL) 116 H 98 (65-110) mg/dL Random Glucose (70-110) mg/dL Calcium (8.4-10.5) mg/dL Phosphorus (2.5-4.5) mg/dL Magnesium (1.7-2.2) mg/dL Total Bilirubin (0.2-1.3) mg/dL AST (17-59) U/L ALT (7-56) U/L Alkaline Phosphatase (38-126) U/L Total Creatine Kinase (35-230) U/L CK-MB (CK-2) (0.0-3.6) ng/mL CK-MB (CK-2) % (2.5-3.0) % Total Protein (5.8-8.3) g/dL Albumin (3.0-4.8) g/dL Globulin gm/dL Albumin/Globulin Ratio (1.1-1.8) 11/25/17 11/25/17 11/25/17 Range/Units 05:30 05:30 05:30 WBC 5.5 D (4.5-11.0) 10^3/ul RBC 3.72 (3.5-6.1) 10^6/uL Hgb 11.1 L (14.0-18.0) g/dL Hct 32.8 L (42.0-52.0) % MCV 88.2 (80.0-105.0) fl MCH 29.8 (25.0-35.0) pg MCHC 33.8 (31.0-37.0) g/dl RDW 14.0 (11.5-14.5) % Plt Count 215 (120.0-450.0) 10^3/uL MPV 9.9 (7.0-11.0) fl pCO2 (35-45) mm/Hg pO2 (80-100) mm/Hg HCO3 (21-28) mmol/L ABG pH (7.35-7.45) ABG Total CO2 (22-28) mmol.L ABG O2 Saturation (95-98) % ABG O2 Content (15-23) ML/dl ABG Base Excess (-2.0-3.0) mmol/L ABG Hemoglobin (11.7-17.4) g/dL ABG Carboxyhemoglobin (0.5-1.5) % POC ABG HHb (Measured) (0-5) % ABG Methemoglobin (0.0-3.0) % ABG O2 Capacity (16-24) mL/dl Hgb O2 Saturation (95.0-98.0) % FiO2 % Sodium 146 (132-148) mmol/L Potassium 3.0 L (3.6-5.0) mmol/L Chloride 109 H (98-107) mmol/L Carbon Dioxide 26 (21-33) mmol/L Anion Gap 14 (10-20) BUN 9 (7-21) mg/dL Creatinine 0.7 L (0.8-1.5) mg/dl Est GFR ( Amer) > 60 Est GFR (Non-Af Amer) > 60 POC Glucose (mg/dL) (65-110) mg/dL Random Glucose 118 H (70-110) mg/dL Calcium 8.5 (8.4-10.5) mg/dL Phosphorus 3.4 (2.5-4.5) mg/dL Magnesium 2.0 (1.7-2.2) mg/dL Total Bilirubin 0.8 (0.2-1.3) mg/dL AST 167 H D (17-59) U/L ALT 107 H (7-56) U/L Alkaline Phosphatase 33 L (38-126) U/L Total Creatine Kinase 2833 H (35-230) U/L CK-MB (CK-2) 7.0 H (0.0-3.6) ng/mL CK-MB (CK-2) % 0.2 L (2.5-3.0) % Total Protein 5.6 L (5.8-8.3) g/dL Albumin 3.1 (3.0-4.8) g/dL Globulin 2.5 gm/dL Albumin/Globulin Ratio 1.2 (1.1-1.8) Laboratory Results - last 24 hr 11/25/17 11/25/17 11/25/17 05:30 05:30 05:30 WBC 5.5 D RBC 3.72 Hgb 11.1 L Hct 32.8 L MCV 88.2 MCH 29.8 MCHC 33.8 RDW 14.0 Plt Count 215 MPV 9.9 pCO2 pO2 HCO3 ABG pH ABG Total CO2 ABG O2 Saturation ABG O2 Content ABG Base Excess ABG Hemoglobin ABG Carboxyhemoglobin POC ABG HHb (Measured) ABG Methemoglobin ABG O2 Capacity Hgb O2 Saturation FiO2 Sodium 146 Potassium 3.0 L Chloride 109 H Carbon Dioxide 26 Anion Gap 14 BUN 9 Creatinine 0.7 L Est GFR ( Amer) > 60 Est GFR (Non-Af Amer) > 60 POC Glucose (mg/dL) Random Glucose 118 H Calcium 8.5 Phosphorus 3.4 Magnesium 2.0 Total Bilirubin 0.8 AST 167 H D ALT 107 H Alkaline Phosphatase 33 L Total Creatine Kinase 2833 H CK-MB (CK-2) 7.0 H CK-MB (CK-2) % 0.2 L Total Protein 5.6 L Albumin 3.1 Globulin 2.5 Albumin/Globulin Ratio 1.2 11/25/17 11/25/17 11/25/17 11:28 16:18 18:11 WBC RBC Hgb Hct MCV MCH MCHC RDW Plt Count MPV pCO2 39 pO2 209.0 H HCO3 27.1 ABG pH 7.45 ABG Total CO2 28.3 H ABG O2 Saturation 100.2 H ABG O2 Content 16.0 ABG Base Excess 2.9 ABG Hemoglobin 11.4 L ABG Carboxyhemoglobin 1.8 H POC ABG HHb (Measured) -0.2 L ABG Methemoglobin 1.6 ABG O2 Capacity 16.0 Hgb O2 Saturation 96.8 FiO2 60.0 Sodium Potassium Chloride Carbon Dioxide Anion Gap BUN Creatinine Est GFR ( Amer) Est GFR (Non-Af Amer) POC Glucose (mg/dL) 98 116 H Random Glucose Calcium Phosphorus Magnesium Total Bilirubin AST ALT Alkaline Phosphatase Total Creatine Kinase CK-MB (CK-2) CK-MB (CK-2) % Total Protein Albumin Globulin Albumin/Globulin Ratio 11/25/17 11/26/17 11/26/17 23:59 05:25 06:07 WBC RBC Hgb Hct MCV MCH MCHC RDW Plt Count MPV pCO2 36 pO2 144.0 H HCO3 25.6 ABG pH 7.46 H ABG Total CO2 26.7 ABG O2 Saturation 99.6 H ABG O2 Content 15.4 ABG Base Excess 1.9 ABG Hemoglobin 11.1 L ABG Carboxyhemoglobin 1.8 H POC ABG HHb (Measured) 0.4 ABG Methemoglobin 1.2 ABG O2 Capacity 15.5 L Hgb O2 Saturation 96.6 FiO2 35.0 Sodium Potassium Chloride Carbon Dioxide Anion Gap BUN Creatinine Est GFR ( Amer) Est GFR (Non-Af Amer) POC Glucose (mg/dL) 99 125 H Random Glucose Calcium Phosphorus Magnesium Total Bilirubin AST ALT Alkaline Phosphatase Total Creatine Kinase CK-MB (CK-2) CK-MB (CK-2) % Total Protein Albumin Globulin Albumin/Globulin Ratio Fingerstick Blood Sugar Results: 99 Review of Systems - Review of Systems Systems not reviewed;Unavailable: Intubated Critical Care Progress Note - Nutrition Nutrition: Nutrition Category Date Time Status NPO Diet [DIET] Diets 11/21/17 Breakfast Ordered Assessment/Plan - Assessment and Plan (Free Text) Assessment: 62yo male with PMHx of heavy EtOH abuse admitted to MICU for EtOH withdrawal and DTs. 1. Delirium Tremens 2. Alcohol Withdrawal 3. Dehydration 4. AMS 5. Rhabdomyolysis Plan: Neuro - sedated on propofol and precedex gtt - intubated on vent (35, 5, 18, 400) - maintain euthermia - HoB above 30 degrees - aspiration and seizure precautions - CIWA protocol - Dr Rosenberg consulted Cardio - hemodynamically stable - tachycardia likely secondary to alcohol withdrawal vs dehydration - maintain MAP > 65mmHg Pulm - intubated on vent (35, 5, 18, 400) - continue pulmonary toilet - aspiration precautions - CXR and ABG to monitor on vent GI - OGT in place - Protonix 40mg ivp qd - NPO - elevated LFTs trending down- likely secondary to alcohol abuse - Thiamine, Folic, MVT Nephro - no acute issues - monitor Is and Os - mackenzie in place - repeat UA: ketones 15 otherwise unremarkable - f/u urine myoglobin - 1/2NS @ 100cc/hr - CK 877 this AM ID - afebrile with no leukocytosis - blood prelim neg x 2, C diff negative - f/u urine c&s - procal: 0.14 - CXR : no active disease - Vanc and Cefepime - Dr Alvarenga consulted Psych - patient has psych history - Dr Abreu on board GI ppx: Protonix 40mg ivp qd DVT ppx: Heparin 5000u sc q12 Diet: NPO Dispo: continue monitoring in MICU Discussed with Dr. Agustin Acosta PGY2 <Mike Velez - Last Filed: 11/26/17 17:07> CCU Objective - Vital Signs / Intake & Output Vital Signs (Last 4 hours): Vital Signs Pulse BP Pulse Ox 11/26/17 16:00 74 112/60 98 11/26/17 15:01 103 H 178/113 H 98 11/26/17 15:00 107 H 100 11/26/17 14:00 79 105/66 98 11/26/17 13:57 78 110/66 98 11/26/17 13:11 134/76 11/26/17 13:10 83 99 11/26/17 13:00 104 H 183/104 H 99 Intake and Output (Last 8hrs): Intake & Output 11/26/17 11/26/17 11/26/17 06:59 14:59 22:59 Intake Total 200 100 Balance 200 100 Intake: IV 200 100 - Medications Active Medications: Active Medications Generic Name Dose Route Start Last Admin Trade Name Freq PRN Reason Stop Dose Admin Heparin Sodium (Porcine) 5,000 units 11/21/17 22:00 11/26/17 09:14 Heparin SC 5,000 units Q12 SHIV Administration Protocol Propofol 1,000 mg in 100 mls @ 2.177 mls/hr 11/25/17 12:22 11/26/17 07:43 Diprivan IV 40 mcg/kg/min .Q24H PRN 17.418 mls/hr TITRATE PER MD ORDER Administration Protocol 5 MCG/KG/MIN Dexmedetomidine HCl 400 mcg in 100 mls @ 3.629 mls/hr 11/26/17 09:21 09:33 Precedex 4 Mcg/Ml (100 Ml) IV 0.2 mcg/kg/hr .Q24H PRN 3.629 mls/hr Agitation Administration Protocol 0.2 MCG/KG/HR Sodium Chloride 1,000 mls @ 100 mls/hr 11/26/17 09:30 11/26/17 11:07 Sodium Chloride 0.45% IV 100 mls/hr .Q10H SHIV Administration Magnesium Sulfate 2 gm/ Sodium 104 mls @ 102 mls/hr 11/26/17 16:41 Chloride IVPB 11/26/17 17:42 ONCE ONE Insulin Human Lispro 0 units 11/26/17 09:00 11/26/17 09:10 Humalog Low SC 7 units Q6H SHIV Administration Protocol Levalbuterol HCl 0.63 mg 11/25/17 07:32 Xopenex IH TIDRESP PRN Shortness of Breath Levalbuterol HCl 0.63 mg 11/25/17 08:00 11/26/17 14:16 Xopenex IH 0.63 mg [id number] SHIV Administration Pantoprazole Sodium 40 mg 11/22/17 10:00 11/26/17 09:10 Protonix Inj IVP 40 mg DAILY SHIV Administration - Patient Studies Lab Studies: Microbiology Studies 11/24/17 10:00 Blood Culture - Preliminary Blood-Venous NO GROWTH AFTER 48 HOURS 11/24/17 10:30 Blood Culture - Preliminary Blood-Venous NO GROWTH AFTER 48 HOURS Lab Studies 11/26/17 11/26/17 11/26/17 Range/Units 12:33 08:30 07:00 WBC (4.5-11.0) 10^3/ul RBC (3.5-6.1) 10^6/uL Hgb (14.0-18.0) g/dL Hct (42.0-52.0) % MCV (80.0-105.0) fl MCH (25.0-35.0) pg MCHC (31.0-37.0) g/dl RDW (11.5-14.5) % Plt Count (120.0-450.0) 10^3/uL MPV (7.0-11.0) fl pCO2 (35-45) mm/Hg pO2 (80-100) mm/Hg HCO3 (21-28) mmol/L ABG pH (7.35-7.45) ABG Total CO2 (22-28) mmol.L ABG O2 Saturation (95-98) % ABG O2 Content (15-23) ML/dl ABG Base Excess (-2.0-3.0) mmol/L ABG Hemoglobin (11.7-17.4) g/dL ABG Carboxyhemoglobin (0.5-1.5) % POC ABG HHb (Measured) (0-5) % ABG Methemoglobin (0.0-3.0) % ABG O2 Capacity (16-24) mL/dl Hgb O2 Saturation (95.0-98.0) % FiO2 % Sodium 147 (132-148) mmol/L Potassium 2.4 L* (3.6-5.0) mmol/L Chloride 114 H (98-107) mmol/L Carbon Dioxide 25 (21-33) mmol/L Anion Gap 10 (10-20) BUN 6 L (7-21) mg/dL Creatinine 0.6 L (0.8-1.5) mg/dl Est GFR ( Amer) > 60 Est GFR (Non-Af Amer) > 60 POC Glucose (mg/dL) 78 (65-110) mg/dL Random Glucose 406 H* D (70-110) mg/dL Calcium 7.9 L (8.4-10.5) mg/dL Phosphorus 2.9 (2.5-4.5) mg/dL Magnesium 1.7 (1.7-2.2) mg/dL Total Bilirubin 0.4 (0.2-1.3) mg/dL AST 78 H D (17-59) U/L ALT 86 H (7-56) U/L Alkaline Phosphatase 30 L (38-126) U/L Total Creatine Kinase 877 H (35-230) U/L CK-MB (CK-2) 1.6 (0.0-3.6) ng/mL CK-MB (CK-2) % Cancelled Total Protein 5.1 L (5.8-8.3) g/dL Albumin 2.7 L (3.0-4.8) g/dL Globulin 2.4 gm/dL Albumin/Globulin Ratio 1.1 (1.1-1.8) Urine Color Yellow (YELLOW) Urine Appearance Cloudy (CLEAR) Urine pH 6.0 (4.7-8.0) Ur Specific [employer] >= 1.030 (1.005-1.035) Urine Protein Negative (<30 mg/dL) mg/dL Urine Glucose (UA) Negative (NEGATIVE) mg/dL Urine Ketones 15 H (NEGATIVE) mg/dL Urine Blood Negative (NEGATIVE) Urine Nitrate Negative (NEGATIVE) Urine Bilirubin Negative (NEGATIVE) Urine Urobilinogen 0.2 (<1 E.U./dL) E.U./dL Ur Leukocyte Esterase Negative (NEGATIVE) Chris/uL 11/26/17 11/26/17 11/26/17 Range/Units 07:00 06:07 05:25 WBC 4.6 (4.5-11.0) 10^3/ul RBC 3.63 (3.5-6.1) 10^6/uL Hgb 10.8 L (14.0-18.0) g/dL Hct 32.5 L (42.0-52.0) % MCV 89.5 (80.0-105.0) fl MCH 29.8 (25.0-35.0) pg MCHC 33.2 (31.0-37.0) g/dl RDW 14.1 (11.5-14.5) % Plt Count 241 (120.0-450.0) 10^3/uL MPV 9.9 (7.0-11.0) fl pCO2 36 (35-45) mm/Hg pO2 144.0 H (80-100) mm/Hg HCO3 25.6 (21-28) mmol/L ABG pH 7.46 H (7.35-7.45) ABG Total CO2 26.7 (22-28) mmol.L ABG O2 Saturation 99.6 H (95-98) % ABG O2 Content 15.4 (15-23) ML/dl ABG Base Excess 1.9 (-2.0-3.0) mmol/L ABG Hemoglobin 11.1 L (11.7-17.4) g/dL ABG Carboxyhemoglobin 1.8 H (0.5-1.5) % POC ABG HHb (Measured) 0.4 (0-5) % ABG Methemoglobin 1.2 (0.0-3.0) % ABG O2 Capacity 15.5 L (16-24) mL/dl Hgb O2 Saturation 96.6 (95.0-98.0) % FiO2 35.0 % Sodium (132-148) mmol/L Potassium (3.6-5.0) mmol/L Chloride (98-107) mmol/L Carbon Dioxide (21-33) mmol/L Anion Gap (10-20) BUN (7-21) mg/dL Creatinine (0.8-1.5) mg/dl Est GFR ( Amer) Est GFR (Non-Af Amer) POC Glucose (mg/dL) 125 H (65-110) mg/dL Random Glucose (70-110) mg/dL Calcium (8.4-10.5) mg/dL Phosphorus (2.5-4.5) mg/dL Magnesium (1.7-2.2) mg/dL Total Bilirubin (0.2-1.3) mg/dL AST (17-59) U/L ALT (7-56) U/L Alkaline Phosphatase (38-126) U/L Total Creatine Kinase (35-230) U/L CK-MB (CK-2) (0.0-3.6) ng/mL CK-MB (CK-2) % Total Protein (5.8-8.3) g/dL Albumin (3.0-4.8) g/dL Globulin gm/dL Albumin/Globulin Ratio (1.1-1.8) Urine Color (YELLOW) Urine Appearance (CLEAR) Urine pH (4.7-8.0) Ur Specific [employer] (1.005-1.035) Urine Protein (<30 mg/dL) mg/dL Urine Glucose (UA) (NEGATIVE) mg/dL Urine Ketones (NEGATIVE) mg/dL Urine Blood (NEGATIVE) Urine Nitrate (NEGATIVE) Urine Bilirubin (NEGATIVE) Urine Urobilinogen (<1 E.U./dL) E.U./dL Ur Leukocyte Esterase (NEGATIVE) Chris/uL 11/25/17 11/25/17 Range/Units 23:59 18:11 WBC (4.5-11.0) 10^3/ul RBC (3.5-6.1) 10^6/uL Hgb (14.0-18.0) g/dL Hct (42.0-52.0) % MCV (80.0-105.0) fl MCH (25.0-35.0) pg MCHC (31.0-37.0) g/dl RDW (11.5-14.5) % Plt Count (120.0-450.0) 10^3/uL MPV (7.0-11.0) fl pCO2 (35-45) mm/Hg pO2 (80-100) mm/Hg HCO3 (21-28) mmol/L ABG pH (7.35-7.45) ABG Total CO2 (22-28) mmol.L ABG O2 Saturation (95-98) % ABG O2 Content (15-23) ML/dl ABG Base Excess (-2.0-3.0) mmol/L ABG Hemoglobin (11.7-17.4) g/dL ABG Carboxyhemoglobin (0.5-1.5) % POC ABG HHb (Measured) (0-5) % ABG Methemoglobin (0.0-3.0) % ABG O2 Capacity (16-24) mL/dl Hgb O2 Saturation (95.0-98.0) % FiO2 % Sodium (132-148) mmol/L Potassium (3.6-5.0) mmol/L Chloride (98-107) mmol/L Carbon Dioxide (21-33) mmol/L Anion Gap (10-20) BUN (7-21) mg/dL Creatinine (0.8-1.5) mg/dl Est GFR ( Amer) Est GFR (Non-Af Amer) POC Glucose (mg/dL) 99 116 H (65-110) mg/dL Random Glucose (70-110) mg/dL Calcium (8.4-10.5) mg/dL Phosphorus (2.5-4.5) mg/dL Magnesium (1.7-2.2) mg/dL Total Bilirubin (0.2-1.3) mg/dL AST (17-59) U/L ALT (7-56) U/L Alkaline Phosphatase (38-126) U/L Total Creatine Kinase (35-230) U/L CK-MB (CK-2) (0.0-3.6) ng/mL CK-MB (CK-2) % Total Protein (5.8-8.3) g/dL Albumin (3.0-4.8) g/dL Globulin gm/dL Albumin/Globulin Ratio (1.1-1.8) Urine Color (YELLOW) Urine Appearance (CLEAR) Urine pH (4.7-8.0) Ur Specific [employer] (1.005-1.035) Urine Protein (<30 mg/dL) mg/dL Urine Glucose (UA) (NEGATIVE) mg/dL Urine Ketones (NEGATIVE) mg/dL Urine Blood (NEGATIVE) Urine Nitrate (NEGATIVE) Urine Bilirubin (NEGATIVE) Urine Urobilinogen (<1 E.U./dL) E.U./dL Ur Leukocyte Esterase (NEGATIVE) Chris/uL Laboratory Results - last 24 hr 11/25/17 11/25/17 11/26/17 18:11 23:59 05:25 WBC RBC Hgb Hct MCV MCH MCHC RDW Plt Count MPV pCO2 36 pO2 144.0 H HCO3 25.6 ABG pH 7.46 H ABG Total CO2 26.7 ABG O2 Saturation 99.6 H ABG O2 Content 15.4 ABG Base Excess 1.9 ABG Hemoglobin 11.1 L ABG Carboxyhemoglobin 1.8 H POC ABG HHb (Measured) 0.4 ABG Methemoglobin 1.2 ABG O2 Capacity 15.5 L Hgb O2 Saturation 96.6 FiO2 35.0 Sodium Potassium Chloride Carbon Dioxide Anion Gap BUN Creatinine Est GFR ( Amer) Est GFR (Non-Af Amer) POC Glucose (mg/dL) 116 H 99 Random Glucose Calcium Phosphorus Magnesium Total Bilirubin AST ALT Alkaline Phosphatase Total Creatine Kinase CK-MB (CK-2) CK-MB (CK-2) % Total Protein Albumin Globulin Albumin/Globulin Ratio Urine Color Urine Appearance Urine pH Ur Specific [employer] Urine Protein Urine Glucose (UA) Urine Ketones Urine Blood Urine Nitrate Urine Bilirubin Urine Urobilinogen Ur Leukocyte Esterase 11/26/17 11/26/17 11/26/17 06:07 07:00 07:00 WBC 4.6 RBC 3.63 Hgb 10.8 L Hct 32.5 L MCV 89.5 MCH 29.8 MCHC 33.2 RDW 14.1 Plt Count 241 MPV 9.9 pCO2 pO2 HCO3 ABG pH ABG Total CO2 ABG O2 Saturation ABG O2 Content ABG Base Excess ABG Hemoglobin ABG Carboxyhemoglobin POC ABG HHb (Measured) ABG Methemoglobin ABG O2 Capacity Hgb O2 Saturation FiO2 Sodium 147 Potassium 2.4 L* Chloride 114 H Carbon Dioxide 25 Anion Gap 10 BUN 6 L Creatinine 0.6 L Est GFR ( Amer) > 60 Est GFR (Non-Af Amer) > 60 POC Glucose (mg/dL) 125 H Random Glucose 406 H* D Calcium 7.9 L Phosphorus 2.9 Magnesium 1.7 Total Bilirubin 0.4 AST 78 H D ALT 86 H Alkaline Phosphatase 30 L Total Creatine Kinase 877 H CK-MB (CK-2) 1.6 CK-MB (CK-2) % Cancelled Total Protein 5.1 L Albumin 2.7 L Globulin 2.4 Albumin/Globulin Ratio 1.1 Urine Color Urine Appearance Urine pH Ur Specific [employer] Urine Protein Urine Glucose (UA) Urine Ketones Urine Blood Urine Nitrate Urine Bilirubin Urine Urobilinogen Ur Leukocyte Esterase 11/26/17 11/26/17 08:30 12:33 WBC RBC Hgb Hct MCV MCH MCHC RDW Plt Count MPV pCO2 pO2 HCO3 ABG pH ABG Total CO2 ABG O2 Saturation ABG O2 Content ABG Base Excess ABG Hemoglobin ABG Carboxyhemoglobin POC ABG HHb (Measured) ABG Methemoglobin ABG O2 Capacity Hgb O2 Saturation FiO2 Sodium Potassium Chloride Carbon Dioxide Anion Gap BUN Creatinine Est GFR ( Amer) Est GFR (Non-Af Amer) POC Glucose (mg/dL) 78 Random Glucose Calcium Phosphorus Magnesium Total Bilirubin AST ALT Alkaline Phosphatase Total Creatine Kinase CK-MB (CK-2) CK-MB (CK-2) % Total Protein Albumin Globulin Albumin/Globulin Ratio Urine Color Yellow Urine Appearance Cloudy Urine pH 6.0 Ur Specific [employer] >= 1.030 Urine Protein Negative Urine Glucose (UA) Negative Urine Ketones 15 H Urine Blood Negative Urine Nitrate Negative Urine Bilirubin Negative Urine Urobilinogen 0.2 Ur Leukocyte Esterase Negative Critical Care Progress Note - Nutrition Nutrition: Nutrition Category Date Time Status NPO Diet [DIET] Diets 11/21/17 Breakfast Ordered Attending/Attestation - Attestation I have personally seen and examined this patient.: Yes I have fully participated in the care of the patient.: Yes I have reviewed all pertinent clinical information: Yes Notes (Text): 11/26/17 16:54 62 yo male with DT, severe ETOH withdrawal, intubated for airways protection. Propofol weaned down to 10 mcg/kg/min, on precedex 0.6 mcg/kg/hr. Comfortable, tolerated PS for 4 hours--> later became uncomfoertable and was put back on PRVC. Will continue with euvolemia, euglycemia, 02sat>90 percent. protective lung vent strategy, fever-->likely aspiration pneumonitis/not pneumonia-->will stop abx, procal 0.14. hemodynamically stable. Afebrile. No leukocytosis ccm time 40 min
[2017-11-26 07:28] LABS: HEMOGLOBIN 10.8 g/dL (14.0-18.0); MEAN CELL VOLUME 89.5 fl (80.0-105.0); MEAN CORPUSCULAR HEMOGLOBIN 29.8 pg (25.0-35.0); MEAN CORPUSCULAR HGB CONC 33.2 g/dl (31.0-37.0); MEAN PLATELET VOLUME 9.9 fl (7.0-11.0); RBC 3.63 10^6/uL (3.5-6.1); RED CELL DISTRIBUTION WIDTH 14.1 % (11.5-14.5); WHITE BLOOD COUNT 4.6 10^3/ul (4.5-11.0)
[2017-11-26 08:48] LABS: ALB/GLOB RATIO 1.1 (1.1-1.8); ALBUMIN 2.7 g/dL (3.0-4.8); ALT/SGPT 86 U/L (7-56); AST/SGOT 78 U/L (17-59); BLOOD UREA NITROGEN 6 mg/dL (7-21); CALCIUM 7.9 mg/dL (8.4-10.5); GFR AFRICAN-AMERICAN > 60; GFR NON-AFRICAN AMERICAN > 60; MAGNESIUM 1.7 mg/dL (1.7-2.2)
[2017-11-26] MEDS ORDERED: Potassium Chloride 40 mEq/30 ml LIQ UD PO ONE (08:55)
[2017-11-26 08:59] LABS: URINE BILIRUBIN NEGATIVE (NEGATIVE); URINE BLOOD NEGATIVE (NEGATIVE); URINE GLUCOSE (UA) NEGATIVE (NEGATIVE); URINE LEUKOCYTE ESTERASE NEGATIVE Leu/uL (NEGATIVE); URINE NITRATE NEGATIVE (NEGATIVE); URINE PROTEIN NEGATIVE mg/dL (<30 mg/dL); URINE UROBILINOGEN 0.2 E.U./dL (<1 E.U./dL)
[2017-11-26 09:02] LABS: URINE APPEARANCE CLOUDY (CLEAR); URINE COLOR YELLOW (YELLOW)
[2017-11-26] MEDS: Insulin Lispro (humaLOG) LOW Coverage SC SCH ×3 (09:10→21:42)
[2017-11-26] MEDS: Vancomycin 500mg in NS 500 MG/100 ML BAG IVPB SCH (09:28)
[2017-11-26] MEDS ORDERED: Sodium Chloride 0.45% 1,000 ML IV SCH (09:30)
[2017-11-26] MEDS: Dexmedetomidine 400mcg/100mL 400 MCG/100 ML BOTTLE IV PRN ×2 (09:33→18:56)
--- NOTE | 2017-11-26 09:59 | RAD ---
HISTORY: intubated COMPARISON: 11/25/2017 FINDINGS: LUNGS: No active pulmonary disease. PLEURA: No significant pleural effusion identified, no pneumothorax apparent. CARDIOVASCULAR: Normal. OSSEOUS STRUCTURES: No significant abnormalities. VISUALIZED UPPER ABDOMEN: Normal. OTHER FINDINGS: The endotracheal and nasogastric tubes are in satisfactory position IMPRESSION: No active disease.
--- NOTE | 2017-11-26 10:05 | CP.PCM.PN ---
<Kevin Deleon - Last Filed: 11/26/17 14:45> Subjective - Date & Time of Evaluation Date of Evaluation: 11/26/17 Time of Evaluation: 07:50 - Subjective Subjective: Medicine Progress note. Dr. Chaparro Pt seen and examined at bedside. Intubated yesterday for airway protection. Sedation regimen adjusted by ICU team. No acute events reported overnight as per nursing staff. Urine looks cloudy, will obtain another UA. Objective - Vital Signs/Intake and Output Vital Signs (last 24 hours): Temp Pulse Resp BP Pulse Ox 98 F 91 H 20 163/84 H 99 11/26/17 08:00 11/26/17 08:13 11/25/17 12:30 11/26/17 08:04 11/26/17 08:04 Intake and Output: 11/26/17 11/26/17 06:59 18:59 Intake Total 300 100 Balance 300 100 - Medications Medications: Current Medications Heparin Sodium (Porcine) (Heparin) 5,000 units SC Q12 SHIV PRN Reason: Protocol Last Admin: 11/26/17 09:14 Dose: 5,000 units Cefepime HCl (Maxipime 1gm) 1 gm in 100 mls @ 100 mls/hr IVPB Q12 SHIV PRN Reason: Protocol Last Admin: 11/25/17 21:53 Dose: 100 mls/hr Vancomycin HCl (Vancomycin 500mg In Ns) 500 mg in 100 mls @ 200 mls/hr IVPB Q12 SHIV PRN Reason: Protocol Last Admin: 11/26/17 09:28 Dose: 200 mls/hr Propofol (Diprivan) 1,000 mg in 100 mls @ 2.177 mls/hr IV .Q24H PRN; Protocol; 5 MCG/KG/MIN PRN Reason: TITRATE PER MD ORDER Last Admin: 11/26/17 07:43 Dose: 40 mcg/kg/min, 17.418 mls/hr Potassium Chloride (Potassium Chloride 10 Meq/100 Ml) 10 meq in 100 mls @ 100 mls/hr IVPB Q1H [facility] Stop: 11/26/17 11:29 Dexmedetomidine HCl (Precedex 4 Mcg/Ml (100 Ml)) 400 mcg in 100 mls @ 3.629 mls /hr IV .Q24H PRN; Protocol; 0.2 MCG/KG/HR PRN Reason: Agitation Last Admin: 11/26/17 09:33 Dose: 0.2 mcg/kg/hr, 3.629 mls/hr Sodium Chloride (Sodium Chloride 0.45%) 1,000 mls @ 100 mls/hr IV .Q10H [facility] Insulin Human Lispro (Humalog Low) 0 units SC Q6H SHIV PRN Reason: Protocol Last Admin: 11/26/17 09:10 Dose: 7 units Levalbuterol HCl (Xopenex) 0.63 mg IH TIDRESP PRN PRN Reason: Shortness of Breath Levalbuterol HCl (Xopenex) 0.63 mg IH [id number] [facility] Last Admin: 11/26/17 07:40 Dose: 0.63 mg Pantoprazole Sodium (Protonix Inj) 40 mg IVP DAILY [facility] Last Admin: 11/26/17 09:10 Dose: 40 mg - Labs Labs: 11/26/17 07:00 11/26/17 07:00 PT 14.5 SECONDS (9.4-12.5) H 11/24/17 09:50 INR 1.26 (0.93-1.08) H 11/24/17 09:50 - Constitutional Appears: Unkempt, Older Than Stated Age - Head Exam Head Exam: ATRAUMATIC, NORMAL INSPECTION, NORMOCEPHALIC - ENT Exam Additional comments: intubated and sedated - Respiratory Exam Respiratory Exam: absent: Accessory Muscle Use, Wheezes Additional comments: intubated and sedated - Cardiovascular Exam Cardiovascular Exam: absent: JVD - GI/Abdominal Exam GI & Abdominal Exam: Soft. absent: Distended, Firm, Guarding, Rigid, Tenderness , Rebound - Extremities Exam Extremities Exam: Normal Inspection. absent: Calf Tenderness - Neurological Exam Additional comments: intubated and sedated. Withdraws from deep painful stimuli. - Skin Skin Exam: Diaphoretic Assessment and Plan - Assessment and Plan (Free Text) Assessment: 62yo M with PMHx of Bipolar disorder and ETOH abuse in ICU for DTs. Patient initially admitted to psych for suicidal ideation then transferred to in- patient due to severe ETOH withdrawal with DTs requiring high-dose sedation. 1. ETOH withdrawal with Delirium Tremens - On precedex and propafol drip for sedation. ICU team managing - S/p Intubation for airway protection on 11/25/17. ICU team managing - Continue daily banana bag - CIWA protocol - Ativan prn 2. Altered Mental Status - Psych following, appreciate recs - Geodon prn - CT head cancelled yesterday due to patient being combative - neuro consulted, Dr. Rosenberg, appreciate recs 3. Possible Rhabdomyolysis - likely secondary to above - Total CK trending down - Continue IVF for hydration - will monitor 4. Fever of unknown origin - Likely secondary to ETOH withdrawals. - ID following, appreciate recs - Blood and urine Cxs: NGTD - No Leukocytosis, afebrile. Abx discontinued today 5. Electrolyte imbalance - monitor and replete as needed 6. Suicidal Ideation - 1:1 observation - Psych following 7. PPx - SCDs - Aspiration precautions - Seizure precautions - Heparin SC - Protonix Further recs as per Dr. Shankar Deleon PGY1 <Charlotte Chaparro - Last Filed: 11/26/17 17:29> Objective - Vital Signs/Intake and Output Vital Signs (last 24 hours): Temp Pulse Resp BP Pulse Ox 98.4 F 74 20 112/60 98 11/26/17 12:00 11/26/17 16:00 11/25/17 12:30 11/26/17 16:00 11/26/17 16:00 Intake and Output: 11/26/17 11/26/17 06:59 18:59 Intake Total 300 100 Balance 300 100 - Medications Medications: Current Medications Heparin Sodium (Porcine) (Heparin) 5,000 units SC Q12 SHIV PRN Reason: Protocol Last Admin: 11/26/17 09:14 Dose: 5,000 units Propofol (Diprivan) 1,000 mg in 100 mls @ 2.177 mls/hr IV .Q24H PRN; Protocol; 5 MCG/KG/MIN PRN Reason: TITRATE PER MD ORDER Last Admin: 11/26/17 07:43 Dose: 40 mcg/kg/min, 17.418 mls/hr Dexmedetomidine HCl (Precedex 4 Mcg/Ml (100 Ml)) 400 mcg in 100 mls @ 3.629 mls /hr IV .Q24H PRN; Protocol; 0.2 MCG/KG/HR PRN Reason: Agitation Last Admin: 11/26/17 09:33 Dose: 0.2 mcg/kg/hr, 3.629 mls/hr Sodium Chloride (Sodium Chloride 0.45%) 1,000 mls @ 100 mls/hr IV .Q10H [facility] Last Admin: 11/26/17 11:07 Dose: 100 mls/hr Insulin Human Lispro (Humalog Low) 0 units SC Q6H SHIV PRN Reason: Protocol Last Admin: 11/26/17 09:10 Dose: 7 units Levalbuterol HCl (Xopenex) 0.63 mg IH TIDRESP PRN PRN Reason: Shortness of Breath Levalbuterol HCl (Xopenex) 0.63 mg IH [id number] SHIV Last Admin: 11/26/17 14:16 Dose: 0.63 mg Pantoprazole Sodium (Protonix Inj) 40 mg IVP DAILY [facility] Last Admin: 11/26/17 09:10 Dose: 40 mg - Labs Labs: 11/26/17 07:00 11/26/17 07:00 PT 14.5 SECONDS (9.4-12.5) H 11/24/17 09:50 INR 1.26 (0.93-1.08) H 11/24/17 09:50 Attending/Attestation - Attestation I have personally seen and examined this patient.: Yes I have fully participated in the care of the patient.: Yes I have reviewed all pertinent clinical information, including history, physical exam and plan: Yes Notes (Text): 11/26/17 16:39 Attending note; Patient seen and examined with resident in ICU. Patient is currently intubated. Heart rate and blood pressure is improving. Patient is a 62 year old male with history of bipolar disorder and alcohol abuse who was transferred from psych unit for management of alcohol withdrawal. Patient will be intubated for delirium tremens. Fever; secondary to alcohol withdrawal. blood culture is negative. C. difficile negative. MRSA negative. Pro-calcitonin is negative. Started on vancomycin and cefepime. Anti-biotics discontinued. Repeat chest x- ray Is negative. ID evaluation appreciated. Continue Precedex drip and propofol drip. Monitor in ICU closely. Upon discharge patient [place] [facility]
[2017-11-26 10:17] LABS: CK-MB 1.6 ng/mL (0.0-3.6)
--- NOTE | 2017-11-26 15:10 | CP.PCM.PN ---
Subjective - Date & Time of Evaluation Date of Evaluation: 11/26/17 Time of Evaluation: 13:45 - Subjective Subjective: Infectious Disease Follow Up: November 26, 2017 62 yo male with medical history that includes Bipolar disorder and alcohol abuse presented with EtOH intoxication and now in withdrawals. Originally in the psych floor for bipolar disease treatment and suicidal ideation on 11/21/2017. The patient required intubation today. ID called for possible aspiration pneumonia. No fevers, leukocytosis at this time. Remains intubated. Still on fevers or leukocytosis. Remains sedated. Objective - Vital Signs/Intake and Output Vital Signs (last 24 hours): Temp Pulse Resp BP Pulse Ox 98.4 F 107 H 20 166/117 H 98 11/26/17 12:00 11/26/17 12:00 11/25/17 12:30 11/26/17 12:00 11/26/17 12:00 Intake and Output: 11/26/17 11/26/17 06:59 18:59 Intake Total 300 100 Balance 300 100 - Medications Medications: Current Medications Heparin Sodium (Porcine) (Heparin) 5,000 units SC Q12 SHIV PRN Reason: Protocol Last Admin: 11/26/17 09:14 Dose: 5,000 units Propofol (Diprivan) 1,000 mg in 100 mls @ 2.177 mls/hr IV .Q24H PRN; Protocol; 5 MCG/KG/MIN PRN Reason: TITRATE PER MD ORDER Last Admin: 11/26/17 07:43 Dose: 40 mcg/kg/min, 17.418 mls/hr Dexmedetomidine HCl (Precedex 4 Mcg/Ml (100 Ml)) 400 mcg in 100 mls @ 3.629 mls /hr IV .Q24H PRN; Protocol; 0.2 MCG/KG/HR PRN Reason: Agitation Last Admin: 11/26/17 09:33 Dose: 0.2 mcg/kg/hr, 3.629 mls/hr Sodium Chloride (Sodium Chloride 0.45%) 1,000 mls @ 100 mls/hr IV .Q10H [facility] Last Admin: 11/26/17 11:07 Dose: 100 mls/hr Insulin Human Lispro (Humalog Low) 0 units SC Q6H SHIV PRN Reason: Protocol Last Admin: 11/26/17 09:10 Dose: 7 units Levalbuterol HCl (Xopenex) 0.63 mg IH TIDRESP PRN PRN Reason: Shortness of Breath Levalbuterol HCl (Xopenex) 0.63 mg IH [id number] [facility] Last Admin: 11/26/17 14:16 Dose: 0.63 mg Pantoprazole Sodium (Protonix Inj) 40 mg IVP DAILY [facility] Last Admin: 11/26/17 09:10 Dose: 40 mg - Labs Labs: 11/26/17 07:00 11/26/17 07:00 PT 14.5 SECONDS (9.4-12.5) H 11/24/17 09:50 INR 1.26 (0.93-1.08) H 11/24/17 09:50 - Constitutional Appears: Non-toxic, No Acute Distress, Chronically Ill - Head Exam Additional comments: intubated and ventilated. - Eye Exam Eye Exam: EOMI, PERRL - ENT Exam ENT Exam: Mucous Membranes Moist, Normal External Ear Exam, TM's Normal Bilaterally - Neck Exam Additional comments: intubated and ventilated. - Respiratory Exam Respiratory Exam: Decreased Breath Sounds, NORMAL BREATHING PATTERN. absent: Rales, Rhonchi, Wheezes - Cardiovascular Exam Cardiovascular Exam: Tachycardia, +S1, +S2 - GI/Abdominal Exam GI & Abdominal Exam: Soft, Normal Bowel Sounds. absent: Distended, Tenderness - Extremities Exam Extremities Exam: Full ROM, Normal Inspection. absent: Joint Swelling, Pedal Edema - Neurological Exam Additional comments: intubated and ventilated. Assessment and Plan - Assessment and Plan (Free Text) Assessment: 62 yo male with EtOH abuse. Developed EtOH withdrawal and now required intubation and ventilation. The patient was being evaluated by ID for potential aspiration. The patient is currently on Cefepime and Vancomycin. If aspiration is a significant concern, would either add Flagyl IV or switch Cefepime to Meropenem or Zosyn. Febrile several days ago up to 102 F. Afebrile the last few days. No leukocytosis. No findings on Chest X-ray. Supportive care. Procalcitonin is 0.14 which is low. Noted procalcitonin repeated. More likely secondary to the EtOH withdrawal and Delirium Tremens. Case discussed with team. From ID point of view, would continue Cefepime and Vancomycin for now. Supportive care. Thank you for allowing me to participate in the care of the patient, we will follow with you.
--- NOTE | 2017-11-26 16:19 | CP.PCM.PCO ---
Addendum Addendum: 11/26/17 16:19 pt was intubated, discussed with , advised to call back after medical stabilization
[2017-11-26] MEDS ORDERED: Magnesium Sulfate 2 GM in Sodium Chloride 0.9% 100 ML IVPB ONE (16:41)
[2017-11-26] MEDS ORDERED: Potassium Chloride 40 MEQ in Sodium Chloride 0.45% 1,000 ML IV SCH (17:26)
[2017-11-26] MEDS ORDERED: Multivitamin (MVI) 10 ML in Dextrose 5%/0.45% NS 1,000 ML IV ONE (17:26)
[2017-11-26] MEDS ORDERED: Potassium Chloride 20 mEq/15 ml LIQ UD PO ONE (19:01)
--- NOTE | 2017-11-26 19:58 | PN ---
DATE: 11/26/2017 SUBJECTIVE: The patient is seen and examined at bedside. He is sedated with propofol 40 mcg/kg per minute and Versed 5 mg per hour. The patient is not responsive to touch stimuli. Versed was stopped. Precedex ordered and pending. The patient is on PRVC 400///35. On that setting, his heart rate 102, oxygen saturation 99%, respiratory rate 18, end-tidal CO2 on the monitor 35 and blood pressure 182/105. OBJECTIVE: ENT: Head and neck atraumatic. LUNGS: Clear to auscultation bilaterally. HEART: Regular rate and rhythm. S1 and S2 normal. ABDOMEN: Soft, nontender, nondistended. MUSCULOSKELETAL: No C/C/E. NEURO: The patient is sedated and not cooperative with neuro exam. SKIN: Moist. PSYCH: The patient is sedated. LABORATORY DATA: Sodium 147, chloride 114, carbon dioxide 25, BUN 6, creatinine 0.6, glucose 406 (D5 normal saline stopped), AST 78, ALT 86, total bilirubin 0.4. WBC 4.6, hemoglobin 10.8, platelet count 241. ABG is 7.46/36/144 on 35% FiO2. MEDICATIONS: Precedex, heparin subcu, Xopenex p.r.n. and every 6 hours, cefepime, Protonix, propofol drip, and vancomycin. Chest x-ray, no active pulmonary disease. ASSESSMENT AND PLAN: A 62-year-old gentleman with delirium tremens, severe alcohol withdrawal who was intubated for airway protection yesterday. The patient was on Versed and propofol. At present time, we will stop Versed and start tapering down propofol. We will add Precedex which does not suppress respiratory center and thus allows controlling patient agitation while allowing tapering down BZRA. We will continue with protective lung ventilation strategy including tidal volume of 6-8 mL per predicted body weight and maintaining plateau pressure less than 30 cm of water. We will continue with conservative fluid and oxygen management and will go down on FiO2 a bit. We will continue with head of bed elevated >35 degrees and oral hygiene. Deep venous thrombosis and gastrointestinal prophylaxis. The patient does not have leukocytosis and afebrile. I have low suspicion for sepsis. I will order procalcitonin and if it comes back low we will peel off antibiotics altogether. Blood culture so far negative. We will continue maintain euvolemia, euglycemia, normothermia, and oxygen saturation more than 90%. We will continue with deep venous thrombosis and gastrointestinal prophylaxis. ccm time 40 min Mike Velez MD ODILIA
[2017-11-27] MEDS: Levalbuterol 0.63 MG/3 ML Inhal Soln UD IH SCH ×4 (01:46→21:01)
[2017-11-27] MEDS: Dexmedetomidine 400mcg/100mL 400 MCG/100 ML BOTTLE IV PRN ×2 (03:14→16:05)
[2017-11-27] MEDS: Insulin Lispro (humaLOG) LOW Coverage SC SCH ×4 (03:41→23:41)
[2017-11-27 05:39] LABS: ARTERIAL BLOOD GAS HCO3 24.7 mmol/L (21-28); ARTERIAL BLOOD GAS HEMOGLOBIN 13.4 g/dL (11.7-17.4); ARTERIAL BLOOD GAS O2 CAPACITY 18.4 mL/dl (16-24); ARTERIAL BLOOD GAS O2 CONTENT 18.4 ML/dl (15-23); ARTERIAL BLOOD GAS PCO2 39 mm/Hg (35-45); ARTERIAL BLOOD GAS PH 7.41 (7.35-7.45); ARTERIAL BLOOD GAS TCO2 25.9 mmol.L (22-28)
[2017-11-27 06:02] LABS: BASO # 0.01 K/mm3 (0.0-2.0); BASO % 0.2 % (0.0-3.0); EOS # 0.1 (0.0-0.7); EOS % 2.3 % (1.5-5.0); GRAN # 4.45 (1.4-6.5); GRAN % 72.9 % (50.0-68.0); HEMOGLOBIN 12.1 g/dL (14.0-18.0); LYMPH # 0.9 (1.2-3.4); LYMPH % 15.1 % (22.0-35.0); MEAN CELL VOLUME 89.7 fl (80.0-105.0); MEAN CORPUSCULAR HEMOGLOBIN 29.8 pg (25.0-35.0); MEAN CORPUSCULAR HGB CONC 33.2 g/dl (31.0-37.0); MEAN PLATELET VOLUME 9.8 fl (7.0-11.0); MONO # 0.6 (0.1-0.6); MONO % 9.5 % (1.0-6.0); RBC 4.06 10^6/uL (3.5-6.1); RED CELL DISTRIBUTION WIDTH 13.8 % (11.5-14.5); WHITE BLOOD COUNT 6.1 10^3/ul (4.5-11.0)
[2017-11-27] MEDS: Propofol 10 mg/ml 1,000 MG/100 ML VIAL IV PRN (06:09)
[2017-11-27 07:10] LABS: ALB/GLOB RATIO 1.3 (1.1-1.8); ALBUMIN 3.4 g/dL (3.0-4.8); ALT/SGPT 88 U/L (7-56); AST/SGOT 71 U/L (17-59); BLOOD UREA NITROGEN 6 mg/dL (7-21); CALCIUM 8.9 mg/dL (8.4-10.5); GFR AFRICAN-AMERICAN > 60; GFR NON-AFRICAN AMERICAN > 60; MAGNESIUM 2.2 mg/dL (1.7-2.2)
--- NOTE | 2017-11-27 08:39 | RAD ---
HISTORY: intubated COMPARISON: 11/26/2017 FINDINGS: LUNGS: No infiltrate. PLEURA: Possible very small right pleural effusion, unchanged. Left costophrenic angle clear. No pneumothorax. CARDIOVASCULAR: ET tube, NG tube unchanged. Normal heart size. No congestive change. OSSEOUS STRUCTURES: No significant abnormalities. VISUALIZED UPPER ABDOMEN: Normal. OTHER FINDINGS: None. IMPRESSION: Small right pleural effusion. Lines and tubes unchanged.
--- NOTE | 2017-11-27 08:47 | CP.PCM.CON ---
History of Present Illness - History of Present Illness History of Present Illness: 62 yr old male who was admitted on 11/18/17 for acute depression with bipolar disorder and history of alcohol abuse. He voluntarily admitted himself for the alcohol detox program. He became very confused and agitated and was going through withdrawal, showing sings of delirium tremens. At this point, he was transferred to ED where he was stared on Precedex drip. There was a tremendous amount of tremulousness noted that was thought to be seizure, but patient is now intubated on midazolam. There is no sign of focal seizure or tonic clonic activity. 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 He is now on On exam: Intubated, on midazolam. obtunded, barely localizes to pain. has linear scar on chest ?s/p cabg? EOMI. roving eye movements. +gag, +corneal, moves extremities spontaneously equally. +3 dtr ul and ll. Toes upgoing bl. + clonus bilaterally. Gait cannot be tested, and sensory exam is not accurate. No focal seizures noted but there is tremulousness. I have spent more than 30 minutes for critical care by reviewing history, examining the patient, reviewing the labs and pertinent images, discussing the care plan with the team, patient, and family members. Past Patient History - Infectious Disease Hx of Infectious Diseases: None - Past Medical History & Family History Past Medical History?: Yes - Past Social History Smoking Status: Never Smoked - CARDIAC Hx Cardiac Disorders: No Hx Angina: No Hx Atrial Fibrillation: No Hx Cardia Arrhythmia: No Hx Circulatory Problems: No Hx Congestive Heart Failure: No Hx Heart Attack: No Hx Heart Murmur: No Hx Heart Transplant: No Hx Hypertension: No Hx Hypotension: No Hx Internal Defibrillator: No Hx Mitral Valve Prolapse: No Hx Pacemaker: No Hx Peripheral Edema: No Hx Peripheral Vascular Disease: No - PULMONARY Hx Respiratory Disorders: No - NEUROLOGICAL Hx Neurological Disorder: No - HEENT Hx HEENT Problems: No - RENAL Hx Chronic Kidney Disease: No - ENDOCRINE/METABOLIC Hx Endocrine Disorders: Yes Hx Diabetes Mellitus Type 1: Yes Hx Diabetes Mellitus Type 2: Yes - HEMATOLOGICAL/ONCOLOGICAL Hx Blood Disorders: No - INTEGUMENTARY Hx Dermatological Problems: No - MUSCULOSKELETAL/RHEUMATOLOGICAL Hx Musculoskeletal Disorders: No Hx Falls: Yes - GASTROINTESTINAL Hx Gastrointestinal Disorders: No Hx Gastroesophageal Reflux: Yes - GENITOURINARY/GYNECOLOGICAL Hx Genitourinary Disorders: No - PSYCHIATRIC Hx Psychophysiologic Disorder: No Hx Anxiety: Yes Hx Bipolar Disorder: Yes Hx Depression: Yes Hx Substance Use: No - SURGICAL HISTORY Other/Comment: L inguinal hernia repair. ?thymus - ANESTHESIA Hx Anesthesia: No Hx Anesthesia Reactions: No Hx Malignant Hyperthermia: No Meds Allergies/Adverse Reactions: Allergies Allergy/AdvReac Type Severity Reaction Status Date / Time No Known Allergies Allergy Verified 11/21/17 12:05 - Medications Medications: Current Medications Heparin Sodium (Porcine) (Heparin) 5,000 units SC Q12 SHIV PRN Reason: Protocol Last Admin: 11/25/17 09:19 Dose: 5,000 units Cefepime HCl (Maxipime 1gm) 1 gm in 100 mls @ 100 mls/hr IVPB Q12 SHIV PRN Reason: Protocol Last Admin: 11/25/17 09:54 Dose: 100 mls/hr Vancomycin HCl (Vancomycin 500mg In Ns) 500 mg in 100 mls @ 200 mls/hr IVPB Q12 SHIV PRN Reason: Protocol Last Admin: 11/25/17 09:18 Dose: 200 mls/hr Dextrose/Sodium Chloride (Dextrose 5%/0.9% Ns 1000 Ml) 1,000 mls @ 100 mls/hr IV .Q10H SHIV Last Admin: 11/25/17 09:22 Dose: 100 mls/hr Propofol (Diprivan) 1,000 mg in 100 mls @ 2.177 mls/hr IV .Q24H PRN; Protocol; 5 MCG/KG/MIN PRN Reason: TITRATE PER MD ORDER Last Admin: 11/25/17 13:13 Dose: 50 mcg/kg/min, 21.773 mls/hr Midazolam 100 mg/100ml in NS (Midazolam 100 Mg/100ml In Ns) 100 mg in 100 mls @ 1 mls/hr IV .Q24H PRN; Protocol; 1 MG/HR PRN Reason: Agitation Last Admin: 11/25/17 12:43 Dose: 1 mg/hr, 1 mls/hr Levalbuterol HCl (Xopenex) 0.63 mg IH TIDRESP PRN PRN Reason: Shortness of Breath Levalbuterol HCl (Xopenex) 0.63 mg IH [id number] SHIV Last Admin: 11/25/17 13:20 Dose: 0.63 mg Pantoprazole Sodium (Protonix Inj) 40 mg IVP DAILY [facility] Last Admin: 11/25/17 09:19 Dose: 40 mg Ziprasidone (Geodon Inj) 10 mg IM Q12 PRN; Protocol PRN Reason: Agitation Results - Vital Signs Recent Vital Signs: Last Vital Signs Temp 97.0 F L 11/25/17 03:22 Pulse 113 H 11/25/17 07:51 Resp 20 11/25/17 12:30 BP 111/61 11/25/17 06:00 Pulse Ox 98 11/25/17 12:30 - Labs Result Diagrams: 11/27/17 05:30 11/27/17 05:30 Labs: Laboratory Results - last 24 hr 11/24/17 11/24/17 11/25/17 09:50 18:13 00:35 WBC RBC Hgb Hct MCV MCH MCHC RDW Plt Count MPV Sodium Potassium Chloride Carbon Dioxide Anion Gap BUN Creatinine Est GFR ( Amer) Est GFR (Non-Af Amer) POC Glucose (mg/dL) 110 103 Random Glucose Calcium Phosphorus Magnesium Total Bilirubin AST ALT Alkaline Phosphatase Total Creatine Kinase CK-MB (CK-2) CK-MB (CK-2) % Total Protein Albumin Globulin Albumin/Globulin Ratio Procalcitonin 0.14 L 11/25/17 11/25/17 11/25/17 05:30 05:30 05:30 WBC 5.5 D RBC 3.72 Hgb 11.1 L Hct 32.8 L MCV 88.2 MCH 29.8 MCHC 33.8 RDW 14.0 Plt Count 215 MPV 9.9 Sodium 146 Potassium 3.0 L Chloride 109 H Carbon Dioxide 26 Anion Gap 14 BUN 9 Creatinine 0.7 L Est GFR ( Amer) > 60 Est GFR (Non-Af Amer) > 60 POC Glucose (mg/dL) Random Glucose 118 H Calcium 8.5 Phosphorus 3.4 Magnesium 2.0 Total Bilirubin 0.8 AST 167 H D ALT 107 H Alkaline Phosphatase 33 L Total Creatine Kinase 2833 H CK-MB (CK-2) 7.0 H CK-MB (CK-2) % 0.2 L Total Protein 5.6 L Albumin 3.1 Globulin 2.5 Albumin/Globulin Ratio 1.2 Procalcitonin 11/25/17 11/25/17 06:07 11:28 WBC RBC Hgb Hct MCV MCH MCHC RDW Plt Count MPV Sodium Potassium Chloride Carbon Dioxide Anion Gap BUN Creatinine Est GFR ( Amer) Est GFR (Non-Af Amer) POC Glucose (mg/dL) 132 H 98 Random Glucose Calcium Phosphorus Magnesium Total Bilirubin AST ALT Alkaline Phosphatase Total Creatine Kinase CK-MB (CK-2) CK-MB (CK-2) % Total Protein Albumin Globulin Albumin/Globulin Ratio Procalcitonin Assessment & Plan - Assessment and Plan (Free Text) Assessment: 62 yr old male with alcohol withdrawal and delirium tremens. Plan; 1. Continue current care 2 EEG when stable.
--- NOTE | 2017-11-27 12:04 | CP.PCM.PN ---
<Keira Lawrence - Last Filed: 11/27/17 12:00> Subjective - Date & Time of Evaluation Date of Evaluation: 11/27/17 Time of Evaluation: 12:00 - Subjective Subjective: ICU Progress Note for Reza Gibson PGY2 Patient seen and examined at bedside. As per nursing staff, there were no acute overnight events. Patient was started on feeds yesterday. He is intubated and sedated. ROS could not be obtained. Objective - Vital Signs/Intake and Output Vital Signs (last 24 hours): Temp Pulse Resp BP Pulse Ox 99.5 F 70 18 158/108 H 100 11/27/17 00:00 11/27/17 07:00 11/27/17 08:19 11/27/17 11:19 11/27/17 08:19 Intake and Output: 11/27/17 11/27/17 06:59 18:59 Intake Total 2021 Output Total 600 Balance 1421 - Medications Medications: Current Medications Folic Acid (Folic Acid) 1 mg IVP DAILY [facility] Last Admin: 11/27/17 11:05 Dose: 1 mg Heparin Sodium (Porcine) (Heparin) 5,000 units SC Q12 SHIV PRN Reason: Protocol Last Admin: 11/27/17 10:47 Dose: 5,000 units Propofol (Diprivan) 1,000 mg in 100 mls @ 2.177 mls/hr IV .Q24H PRN; Protocol; 5 MCG/KG/MIN PRN Reason: TITRATE PER MD ORDER Last Admin: 11/27/17 06:09 Dose: 10 mcg/kg/min, 4.355 mls/hr Dexmedetomidine HCl (Precedex 4 Mcg/Ml (100 Ml)) 400 mcg in 100 mls @ 3.629 mls /hr IV .Q24H PRN; Protocol; 0.2 MCG/KG/HR PRN Reason: Agitation Last Admin: 11/27/17 03:14 Dose: 0.6 mcg/kg/hr, 10.886 mls/hr Insulin Human Lispro (Humalog Low) 0 units SC Q6H SHIV PRN Reason: Protocol Last Admin: 11/27/17 10:53 Dose: Not Given Levalbuterol HCl (Xopenex) 0.63 mg IH TIDRESP PRN PRN Reason: Shortness of Breath Levalbuterol HCl (Xopenex) 0.63 mg IH [id number] [facility] Last Admin: 11/27/17 08:15 Dose: 0.63 mg Lorazepam (Ativan) 4 mg IVP Q4H PRN PRN Reason: Agitation Pantoprazole Sodium (Protonix Inj) 40 mg IVP DAILY [facility] Last Admin: 11/27/17 10:47 Dose: 40 mg Thiamine HCl (Vitamin B1 Tab) 100 mg PO DAILY [facility] Last Admin: 11/27/17 11:05 Dose: 100 mg - Labs Labs: 11/27/17 05:30 11/27/17 05:30 PT 14.5 SECONDS (9.4-12.5) H 11/24/17 09:50 INR 1.26 (0.93-1.08) H 11/24/17 09:50 - Constitutional Appears: No Acute Distress - Head Exam Head Exam: ATRAUMATIC, NORMAL INSPECTION, NORMOCEPHALIC - Eye Exam Eye Exam: PERRL Pupil Exam: PERRL - ENT Exam ENT Exam: Mucous Membranes Moist - Neck Exam Neck Exam: Full ROM - Respiratory Exam Respiratory Exam: Clear to Ausculation Bilateral, NORMAL BREATHING PATTERN. absent: Rales, Rhonchi, Wheezes - Cardiovascular Exam Cardiovascular Exam: REGULAR RHYTHM, +S1, +S2. absent: Gallop, Rubs, Murmur - GI/Abdominal Exam GI & Abdominal Exam: Distended, Soft, Normal Bowel Sounds. absent: Tenderness, Mass, Rebound - Extremities Exam Extremities Exam: Pedal Edema (+ 1 bilaterally ). absent: Calf Tenderness Additional comments: R hand has blisters - Neurological Exam Neurological Exam: CN II-XII Intact. absent: Alert, Awake - Skin Skin Exam: Dry, Warm Assessment and Plan - Assessment and Plan (Free Text) Assessment: This is a 72yo M with past medical history of bipolar disorder admitted for delirium tremens secondary to EtOH withdrawal as well we rhabdomyolysis. Plan: Neuro: - intubated and sedated on propofol and precedex gtt - Neuro consulted- recs appreciated - CIWA protocol - Ativan prn - seizure precautions - Continue thiamine and folic acid Cardio: - HD stable - maintain MAP > 65mmHg Pulm: - intubated on vent- will do daily PS as tolerated - Protective lung ventilation strategy, HOB elevated - aspiration precautions - Xopenex GI: - Transaminitis stable- secondary to EtOH abuse - OGT in place - Protonix 40mg ivp qd - started on Tube feeds goal of 20- patient is at risk for aspiration - Thiamine, Folic Heme: - Hgb stable no overt signs of bleeding - Continue to monitor Nephro: - Rhabdo improving - Fluids d/c - Monitor I&O - CK trending down ID: - Afebrile, no leukocytosis - procal: 0.14 - CXR : no active disease - Abx d/c - ID consulted- recs appreciated Psych: - Hx of Bipolar - Psych consulted- recs appreciated GI ppx: Protonix DVT ppx: Heparin Diet: Tube feeds @20 Dispo: Will try to wean off of sedation as tolerated Case seen, discussed and reviewed with attending. Reza Lawrence PGY2 <Mike Velez - Last Filed: 11/27/17 18:29> Objective - Vital Signs/Intake and Output Vital Signs (last 24 hours): Temp Pulse Resp BP Pulse Ox 98.8 F 61 18 110/66 100 11/27/17 16:00 11/27/17 16:00 11/27/17 16:00 11/27/17 16:00 11/27/17 16:00 Intake and Output: 11/27/17 11/27/17 06:59 18:59 Intake Total 1 100 Output Total 600 Balance 1421 100 - Medications Medications: Current Medications Folic Acid (Folic Acid) 1 mg IVP DAILY [facility] Last Admin: 11/27/17 11:05 Dose: 1 mg Heparin Sodium (Porcine) (Heparin) 5,000 units SC Q12 SHIV PRN Reason: Protocol Last Admin: 11/27/17 10:47 Dose: 5,000 units Propofol (Diprivan) 1,000 mg in 100 mls @ 2.177 mls/hr IV .Q24H PRN; Protocol; 5 MCG/KG/MIN PRN Reason: TITRATE PER MD ORDER Last Admin: 11/27/17 06:09 Dose: 10 mcg/kg/min, 4.355 mls/hr Dexmedetomidine HCl (Precedex 4 Mcg/Ml (100 Ml)) 400 mcg in 100 mls @ 3.629 mls /hr IV .Q24H PRN; Protocol; 0.2 MCG/KG/HR PRN Reason: Agitation Last Admin: 11/27/17 16:05 Dose: 1 mcg/kg/hr, 18.144 mls/hr Insulin Human Lispro (Humalog Low) 0 units SC Q6H SHIV PRN Reason: Protocol Last Admin: 11/27/17 16:22 Dose: Not Given Levalbuterol HCl (Xopenex) 0.63 mg IH TIDRESP PRN PRN Reason: Shortness of Breath Levalbuterol HCl (Xopenex) 0.63 mg IH [id number] [facility] Last Admin: 11/27/17 13:26 Dose: 0.63 mg Lorazepam (Ativan) 4 mg IVP Q4H PRN PRN Reason: Agitation Pantoprazole Sodium (Protonix Inj) 40 mg IVP DAILY [facility] Last Admin: 11/27/17 10:47 Dose: 40 mg Thiamine HCl (Vitamin B1 Tab) 100 mg PO DAILY [facility] Last Admin: 11/27/17 11:05 Dose: 100 mg - Labs Labs: 11/27/17 05:30 11/27/17 05:30 PT 14.5 SECONDS (9.4-12.5) H 11/24/17 09:50 INR 1.26 (0.93-1.08) H 11/24/17 09:50 Attending/Attestation - Attestation I have personally seen and examined this patient.: Yes I have fully participated in the care of the patient.: Yes I have reviewed all pertinent clinical information, including history, physical exam and plan: Yes Notes (Text): 11/27/17 18:[address] Velez's note
--- NOTE | 2017-11-27 13:43 | CP.PCM.PN ---
Subjective - Date & Time of Evaluation Date of Evaluation: 11/27/17 Time of Evaluation: 13:40 - Subjective Subjective: Mr. Koch was seen and examined at the bedside in ICU. He remains on mechanical ventilation on PRVC mode and with sedation of precedex and propofol. GCS 4T, responsive to pain stimuli. There was no untoward events overnight. Objective - Vital Signs/Intake and Output Vital Signs (last 24 hours): Temp Pulse Resp BP Pulse Ox 99.5 F 88 18 140/92 H 100 11/27/17 00:00 11/27/17 13:32 11/27/17 08:19 11/27/17 13:33 11/27/17 13:32 Intake and Output: 11/27/17 11/27/17 06:59 18:59 Intake Total 2021 Output Total 600 Balance 1421 - Medications Medications: Current Medications Folic Acid (Folic Acid) 1 mg IVP DAILY [facility] Last Admin: 11/27/17 11:05 Dose: 1 mg Heparin Sodium (Porcine) (Heparin) 5,000 units SC Q12 SHIV PRN Reason: Protocol Last Admin: 11/27/17 10:47 Dose: 5,000 units Propofol (Diprivan) 1,000 mg in 100 mls @ 2.177 mls/hr IV .Q24H PRN; Protocol; 5 MCG/KG/MIN PRN Reason: TITRATE PER MD ORDER Last Admin: 11/27/17 06:09 Dose: 10 mcg/kg/min, 4.355 mls/hr Dexmedetomidine HCl (Precedex 4 Mcg/Ml (100 Ml)) 400 mcg in 100 mls @ 3.629 mls /hr IV .Q24H PRN; Protocol; 0.2 MCG/KG/HR PRN Reason: Agitation Last Admin: 11/27/17 03:14 Dose: 0.6 mcg/kg/hr, 10.886 mls/hr Insulin Human Lispro (Humalog Low) 0 units SC Q6H SHIV PRN Reason: Protocol Last Admin: 11/27/17 10:53 Dose: Not Given Levalbuterol HCl (Xopenex) 0.63 mg IH TIDRESP PRN PRN Reason: Shortness of Breath Levalbuterol HCl (Xopenex) 0.63 mg IH [id number] [facility] Last Admin: 11/27/17 13:26 Dose: 0.63 mg Lorazepam (Ativan) 4 mg IVP Q4H PRN PRN Reason: Agitation Pantoprazole Sodium (Protonix Inj) 40 mg IVP DAILY [facility] Last Admin: 11/27/17 10:47 Dose: 40 mg Thiamine HCl (Vitamin B1 Tab) 100 mg PO DAILY [facility] Last Admin: 11/27/17 11:05 Dose: 100 mg - Labs Labs: 11/27/17 05:30 11/27/17 05:30 PT 14.5 SECONDS (9.4-12.5) H 11/24/17 09:50 INR 1.26 (0.93-1.08) H 11/24/17 09:50 - Constitutional Appears: No Acute Distress - Head Exam Head Exam: NORMAL INSPECTION - Neurological Exam Neuro motor strength exam: Left Upper Extremity: 0, Right Upper Extremity: 0, Left Lower Extremity: 0, Right Lower Extremity: 0 Additional comments: GCS-4T Assessment and Plan (1) Altered mental status, unspecified Assessment & Plan: Case discussed with Dr. Rosenberg, continue all current medical regimen. Recommend EEG when patient is stable without sedation. Status: Acute
--- NOTE | 2017-11-27 14:21 | CP.PCM.PN ---
<Singh Traore - Last Filed: 11/27/17 14:15> Subjective - Date & Time of Evaluation Date of Evaluation: 11/27/17 Time of Evaluation: 11:00 - Subjective Subjective: Singh Traore PGY1 IM Progress Note Patient was seen and examined in the ICU. Patient remains intubated and on sedation. He is more comfortable appearing today after sedation adjustment. ROS was not obtained. Objective - Vital Signs/Intake and Output Vital Signs (last 24 hours): Temp Pulse Resp BP Pulse Ox 96.6 F L 88 18 140/92 H 100 11/27/17 12:00 11/27/17 13:32 11/27/17 08:19 11/27/17 13:33 11/27/17 13:32 Intake and Output: 11/27/17 11/27/17 06:59 18:59 Intake Total 2021 Output Total 600 Balance 1421 - Medications Medications: Current Medications Folic Acid (Folic Acid) 1 mg IVP DAILY [facility] Last Admin: 11/27/17 11:05 Dose: 1 mg Heparin Sodium (Porcine) (Heparin) 5,000 units SC Q12 SHIV PRN Reason: Protocol Last Admin: 11/27/17 10:47 Dose: 5,000 units Propofol (Diprivan) 1,000 mg in 100 mls @ 2.177 mls/hr IV .Q24H PRN; Protocol; 5 MCG/KG/MIN PRN Reason: TITRATE PER MD ORDER Last Admin: 11/27/17 06:09 Dose: 10 mcg/kg/min, 4.355 mls/hr Dexmedetomidine HCl (Precedex 4 Mcg/Ml (100 Ml)) 400 mcg in 100 mls @ 3.629 mls /hr IV .Q24H PRN; Protocol; 0.2 MCG/KG/HR PRN Reason: Agitation Last Admin: 11/27/17 03:14 Dose: 0.6 mcg/kg/hr, 10.886 mls/hr Insulin Human Lispro (Humalog Low) 0 units SC Q6H SHIV PRN Reason: Protocol Last Admin: 11/27/17 10:53 Dose: Not Given Levalbuterol HCl (Xopenex) 0.63 mg IH TIDRESP PRN PRN Reason: Shortness of Breath Levalbuterol HCl (Xopenex) 0.63 mg IH [id number] [facility] Last Admin: 11/27/17 13:26 Dose: 0.63 mg Lorazepam (Ativan) 4 mg IVP Q4H PRN PRN Reason: Agitation Pantoprazole Sodium (Protonix Inj) 40 mg IVP DAILY [facility] Last Admin: 11/27/17 10:47 Dose: 40 mg Thiamine HCl (Vitamin B1 Tab) 100 mg PO DAILY [facility] Last Admin: 11/27/17 11:05 Dose: 100 mg - Labs Labs: 11/27/17 05:30 11/27/17 05:30 PT 14.5 SECONDS (9.4-12.5) H 11/24/17 09:50 INR 1.26 (0.93-1.08) H 11/24/17 09:50 - Constitutional Appears: Well, Non-toxic, No Acute Distress - Head Exam Head Exam: ATRAUMATIC, NORMAL INSPECTION - Eye Exam Eye Exam: Normal appearance, PERRL - ENT Exam ENT Exam: Mucous Membranes Moist Additional comments: intubated - Neck Exam Neck Exam: Normal Inspection - Respiratory Exam Respiratory Exam: NORMAL BREATHING PATTERN. absent: Rales, Rhonchi, Wheezes Additional comments: intubated - Cardiovascular Exam Cardiovascular Exam: RRR, +S1, +S2 - GI/Abdominal Exam GI & Abdominal Exam: Soft, Normal Bowel Sounds. absent: Distended, Tenderness - Exam Additional comments: mackenzie in place - Extremities Exam Extremities Exam: Normal Inspection. absent: Pedal Edema - Neurological Exam Additional comments: sedated - Psychiatric Exam Additional comments: unable to obtain Assessment and Plan - Assessment and Plan (Free Text) Assessment: 62yo M with PMHx of Bipolar disorder and ETOH abuse in ICU for DTs. Patient initially admitted to psych for suicidal ideation then transferred to in- patient due to severe ETOH withdrawal with DTs requiring high-dose sedation and intubation. Plan: 1. ETOH withdrawal with Delirium Tremens - On precedex and propafol drip for sedation. ICU team managing - S/p Intubation for airway protection on 11/25/17. ICU team managing - cont thiamine and folic acid supplementation - [facility] protocol - Ativan prn 2. Altered Mental Status, currently being sedated for DT's - CT head ordered, will f/u - neuro consulted, Dr. Roesnberg, appreciate recs 3. Possible Rhabdomyolysis, improving with sedation - likely secondary to DT's - Total CK trending down - renal function has not been affected - Continue IVF for hydration - will monitor 4. Fever of unknown origin - Likely secondary to ETOH withdrawals - ID following, appreciate recs - Blood and stool Cxs show no growth - No Leukocytosis, afebrile. Abx discontinued today per ID 5. Electrolyte imbalance - monitor and replete as needed 6. Suicidal Ideation - 1:1 observation - Psych following, will follow up with patient once more stable 7. PPx - SCDs - Aspiration precautions - Seizure precautions - Heparin SC - Protonix Patient was seen, examined and discussed with attending, Dr. Shankar Traore PGY1 Pager # [phone] <Charlotte Chaparro - Last Filed: 11/27/17 18:52> Objective - Vital Signs/Intake and Output Vital Signs (last 24 hours): Temp Pulse Resp BP Pulse Ox 98.8 F 61 18 110/66 100 11/27/17 16:00 11/27/17 16:00 11/27/17 16:00 11/27/17 16:00 11/27/17 16:00 Intake and Output: 11/27/17 11/27/17 06:59 18:59 Intake Total 2021 100 Output Total 600 Balance 1421 100 - Medications Medications: Current Medications Folic Acid (Folic Acid) 1 mg IVP DAILY [facility] Last Admin: 11/27/17 11:05 Dose: 1 mg Heparin Sodium (Porcine) (Heparin) 5,000 units SC Q12 SHIV PRN Reason: Protocol Last Admin: 11/27/17 10:47 Dose: 5,000 units Propofol (Diprivan) 1,000 mg in 100 mls @ 2.177 mls/hr IV .Q24H PRN; Protocol; 5 MCG/KG/MIN PRN Reason: TITRATE PER MD ORDER Last Admin: 11/27/17 06:09 Dose: 10 mcg/kg/min, 4.355 mls/hr Dexmedetomidine HCl (Precedex 4 Mcg/Ml (100 Ml)) 400 mcg in 100 mls @ 3.629 mls /hr IV .Q24H PRN; Protocol; 0.2 MCG/KG/HR PRN Reason: Agitation Last Admin: 11/27/17 16:05 Dose: 1 mcg/kg/hr, 18.144 mls/hr Insulin Human Lispro (Humalog Low) 0 units SC Q6H SHIV PRN Reason: Protocol Last Admin: 11/27/17 16:22 Dose: Not Given Levalbuterol HCl (Xopenex) 0.63 mg IH TIDRESP PRN PRN Reason: Shortness of Breath Levalbuterol HCl (Xopenex) 0.63 mg IH [id number] [facility] Last Admin: 11/27/17 13:26 Dose: 0.63 mg Lorazepam (Ativan) 4 mg IVP Q4H PRN PRN Reason: Agitation Pantoprazole Sodium (Protonix Inj) 40 mg IVP DAILY [facility] Last Admin: 11/27/17 10:47 Dose: 40 mg Thiamine HCl (Vitamin B1 Tab) 100 mg PO DAILY [facility] Last Admin: 11/27/17 11:05 Dose: 100 mg - Labs Labs: 11/27/17 05:30 11/27/17 05:30 PT 14.5 SECONDS (9.4-12.5) H 11/24/17 09:50 INR 1.26 (0.93-1.08) H 11/24/17 09:50 Attending/Attestation - Attestation I have personally seen and examined this patient.: Yes I have fully participated in the care of the patient.: Yes I have reviewed all pertinent clinical information, including history, physical exam and plan: Yes Notes (Text): 11/27/17 18:49 Attending note; Patient seen and examined with resident in ICU. Patient is currently intubated. Heart rate and blood pressure is improving. Patient is a 62 year old male with history of bipolar disorder and alcohol abuse who was transferred from psych unit for management of alcohol withdrawal. Patient will be intubated for delirium tremens. Weaning trial as per ICU team. Fever; secondary to alcohol withdrawal. blood culture is negative. C. difficile negative. MRSA negative. Pro-calcitonin is negative. Anti-biotics discontinued. Repeat chest x-ray Is negative. ID evaluation appreciated. Elevated LFTs; secondary to alcohol abuse. Trending down. Mild rhabdomyolysis; CPK is trending down. Continue IV fluids. Continue Precedex drip and propofol drip. Monitor in ICU closely.
--- NOTE | 2017-11-27 15:04 | CT ---
PROCEDURE: CT HEAD WITHOUT CONTRAST. HISTORY: AMS, persistent DTs COMPARISON: None available. TECHNIQUE: Axial computed tomography images were obtained through the head/brain without intravenous contrast. Radiation dose: Total exam DLP = 971 mGy-cm. This CT exam was performed using one or more of the following dose reduction techniques: Automated exposure control, adjustment of the mA and/or kV according to patient size, and/or use of iterative reconstruction technique. FINDINGS: HEMORRHAGE: No intracranial hemorrhage. BRAIN: No mass effect or edema. No atrophy or chronic microvascular ischemic changes. VENTRICLES: Unremarkable. No hydrocephalus. CALVARIUM: Unremarkable. PARANASAL SINUSES: There is a large mucous retention cyst in the right maxillary sinus MASTOID AIR CELLS: Unremarkable as visualized. No inflammatory changes. OTHER FINDINGS: None. IMPRESSION: No acute findings
--- NOTE | 2017-11-27 18:15 | PN ---
DATE: 11/27/2017 SUBJECTIVE: The patient was seen and examined at the bedside. He had an attempt to wean down/off sedation early in the morning. He was off of propofol and Precedex was at 0.8 mcg/kg/hr. However, he became very agitated , tachypneic, diaphoretic, and could not tolerate pressure support trial due to agitation and confusion. The patient was put back on PRVC, propofol was restarted at 30 mcg/kg/minute and Precedex was increased to 1 mcg/kg/hour. The patient appears to be comfortable at present time. He does have some blisters on his right upper extremity, which appears to be due to swelling and this patient is very positive fluid balance zavaleta despite normal renal function. IV fluids were stopped and one dose of Lasix given. PHYSICAL EXAMINATION: VITAL SIGNS: Blood pressure 140/92, oxygen saturation 100%, heart rate 90, end-tidal CO2 on the monitor 40, respiratory rate 18. The patient is on PRVC 400/18/5/35. ENT: Head and neck atraumatic. LUNGS: Clear to auscultation bilaterally. HEART: Regular rate and rhythm. S1, S2 normal. ABDOMEN: Soft, nontender, nondistended. MUSCULOSKELETAL: No C/C/E. NEURO: The patient moves all extremities spontaneously. SKIN: Moist and some blisters in the right upper extremity. PSYCHIATRIC: The patient is sedated on propofol and Precedex. Due to substantial agitation during the weaning trial and some beige-colored matter in the endotracheal suction tube, enteral nutrition was temporarily stopped. LABORATORY DATA: Sodium 146, potassium 3.8, chloride 110, carbon dioxide 25, BUN 6, creatinine 0.7, glucose 112. AST 71, ALT 88, total bilirubin 0.7. WBC 6.1, hemoglobin 12.1, platelet count 243. Blood gas today 7.41/39/127. MEDICATIONS: Precedex, folic acid, heparin subcu, regular insulin sliding scale low protocol, Xopenex p.r.n. and Xopenex every 6 hours, Ativan p.r.n., Protonix, potassium supplementation, thiamine, propofol. ASSESSMENT AND PLAN: This is a 62-year-old gentleman with severe alcohol withdrawal and delirium tremens who had to be intubated for airway protection. Neurology: We are continuing with daily sedation vacation; however, the patient became very agitated today during one of those and had to be placed back on Precedex currently at 1 mcg/kg/minute and propofol 30 mcg/kg/minute. The patient is moving all extremities. He does not have muscle rigidity. Pulmonary: We will continue with daily weaning attempt. Today, the patient failed pressure support trial. Meanwhile, we will continue with protective lung ventilation strategy and tidal volume of 6 to 8 mL per predicted body weight and plateau pressure less than 30 to minimize risk of acute lung injury, conservative fluid and oxygen management. Head of bed elevated more than 35 degrees, daily weaning trials, and daily sedation vacation. Oral hygiene. VAP bundle. Cardiovascular: The patient is hemodynamically stable. Infectious Disease: The patient is afebrile, does not have leukocytosis. I have low suspicion for infection and antibiotics were stopped yesterday without any change in the patient's clinical status. Most likely, the patient did have some aspiration pneumonitis, but not pneumonia. Nephrology: The patient has very positive fluid balance and IV fluids were stopped with one dose of Lasix given. Renal function is normal. CPK is trending down. We will continue to maintain mean arterial pressure more than 65, euvolemia, euglycemia for additional nephro-protective effect. We will try to avoid nephrotoxic medication, but not in the expense of treating underlying disease. Endocrine: We will maintain blood glucose within 140 to 180 range according to NICE-SUGAR trial. ccm time 40 min Mike Velez MD [place]
--- NOTE | 2017-11-27 23:38 | CP.PCM.PN ---
Subjective - Date & Time of Evaluation Date of Evaluation: 11/27/17 Time of Evaluation: 22:00 - Subjective Subjective: Infectious Disease Follow Up: November 27, 2017 62 yo male with medical history that includes Bipolar disorder and alcohol abuse presented with EtOH intoxication and now in withdrawals. Originally in the psych floor for bipolar disease treatment and suicidal ideation on 11/21/2017. The patient required intubation today. ID called for possible aspiration pneumonia. No fevers, leukocytosis at this time. Remains intubated. Still on fevers or leukocytosis. Remains sedated. Noted blistered skin on right hand. Objective - Vital Signs/Intake and Output Vital Signs (last 24 hours): Temp Pulse Resp BP Pulse Ox 98.8 F 67 18 104/67 100 11/27/17 16:00 11/27/17 18:00 11/27/17 16:00 11/27/17 18:00 11/27/17 18:00 Intake and Output: 11/27/17 11/28/17 18:59 06:59 Intake Total 460 Output Total 1600 Balance -1140 - Medications Medications: Current Medications Folic Acid (Folic Acid) 1 mg IVP DAILY [facility] Last Admin: 11/27/17 11:05 Dose: 1 mg Heparin Sodium (Porcine) (Heparin) 5,000 units SC Q12 [facility] PRN Reason: Protocol Last Admin: 11/27/17 10:47 Dose: 5,000 units Propofol (Diprivan) 1,000 mg in 100 mls @ 2.177 mls/hr IV .Q24H PRN; Protocol; 5 MCG/KG/MIN PRN Reason: TITRATE PER MD ORDER Last Admin: 11/27/17 06:09 Dose: 10 mcg/kg/min, 4.355 mls/hr Dexmedetomidine HCl (Precedex 4 Mcg/Ml (100 Ml)) 400 mcg in 100 mls @ 3.629 mls /hr IV .Q24H PRN; Protocol; 0.2 MCG/KG/HR PRN Reason: Agitation Last Admin: 11/27/17 16:05 Dose: 1 mcg/kg/hr, 18.144 mls/hr Insulin Human Lispro (Humalog Low) 0 units SC Q6H [facility] PRN Reason: Protocol Last Admin: 11/27/17 16:22 Dose: Not Given Levalbuterol HCl (Xopenex) 0.63 mg IH TIDRESP PRN PRN Reason: Shortness of Breath Levalbuterol HCl (Xopenex) 0.63 mg IH [id number] [facility] Last Admin: 11/27/17 21:01 Dose: 0.63 mg Lorazepam (Ativan) 4 mg IVP Q4H PRN PRN Reason: Agitation Pantoprazole Sodium (Protonix Inj) 40 mg IVP DAILY [facility] Last Admin: 11/27/17 10:47 Dose: 40 mg Thiamine HCl (Vitamin B1 Tab) 100 mg PO DAILY [facility] Last Admin: 11/27/17 11:05 Dose: 100 mg - Labs Labs: 11/27/17 05:30 11/27/17 05:30 PT 14.5 SECONDS (9.4-12.5) H 11/24/17 09:50 INR 1.26 (0.93-1.08) H 11/24/17 09:50 - Constitutional Appears: Non-toxic, No Acute Distress, Chronically Ill - Head Exam Additional comments: remains intubated and ventilated. - Eye Exam Eye Exam: EOMI, PERRL Pupil Exam: NORMAL ACCOMODATION, PERRL - ENT Exam ENT Exam: Mucous Membranes Moist, Normal External Ear Exam, TM's Normal Bilaterally - Neck Exam Additional comments: intubated and ventilated. - Respiratory Exam Respiratory Exam: Decreased Breath Sounds, NORMAL BREATHING PATTERN. absent: Rales, Rhonchi, Wheezes - Cardiovascular Exam Cardiovascular Exam: REGULAR RHYTHM, RRR, +S1, +S2 - GI/Abdominal Exam GI & Abdominal Exam: Soft, Normal Bowel Sounds. absent: Distended, Tenderness - Extremities Exam Extremities Exam: Full ROM, Joint Swelling, Normal Inspection. absent: Pedal Edema - Neurological Exam Additional comments: intubated and ventilated. He is awake and alert though. Assessment and Plan - Assessment and Plan (Free Text) Assessment: 62 yo male with EtOH abuse. Developed EtOH withdrawal and now required intubation and ventilation. The patient was being evaluated by ID for potential aspiration. The patient is currently on Cefepime and Vancomycin. If aspiration is a significant concern, would either add Flagyl IV or switch Cefepime to Meropenem or Zosyn. Febrile several days ago up to 102 F. Afebrile the last few days. No leukocytosis. No findings on Chest X-ray. Supportive care. Procalcitonin is 0.14 which is low. Noted procalcitonin repeated. More likely secondary to the EtOH withdrawal and Delirium Tremens. Case discussed with team. Off antibiotics now. From ID point of view, no obvious infection sources at this time. Patient appears to be more awake and alert. Supportive care. Thank you for allowing me to participate in the care of the patient, we will follow with you.
[2017-11-28] MEDS: Dexmedetomidine 400mcg/100mL 400 MCG/100 ML BOTTLE IV PRN ×5 (02:43→23:41)
[2017-11-28] MEDS: Insulin Lispro (humaLOG) LOW Coverage SC SCH ×4 (03:30→22:44)
[2017-11-28 03:35] LABS: ARTERIAL BLOOD GAS HCO3 28.5 mmol/L (21-28); ARTERIAL BLOOD GAS HEMOGLOBIN 12.1 g/dL (11.7-17.4); ARTERIAL BLOOD GAS O2 CAPACITY 16.5 mL/dl (16-24); ARTERIAL BLOOD GAS O2 CONTENT 16.3 ML/dl (15-23); ARTERIAL BLOOD GAS O2 SAT 98.6 % (95-98); ARTERIAL BLOOD GAS PCO2 41 mm/Hg (35-45); ARTERIAL BLOOD GAS PH 7.45 (7.35-7.45); ARTERIAL BLOOD GAS TCO2 29.8 mmol.L (22-28)
[2017-11-28 06:26] LABS: BASO # 0.01 K/mm3 (0.0-2.0); BASO % 0.2 % (0.0-3.0); EOS # 0.2 (0.0-0.7); EOS % 2.5 % (1.5-5.0); GRAN # 4.61 (1.4-6.5); GRAN % 75.8 % (50.0-68.0); HEMOGLOBIN 11.9 g/dL (14.0-18.0); LYMPH # 0.8 (1.2-3.4); LYMPH % 12.5 % (22.0-35.0); MEAN CELL VOLUME 89.5 fl (80.0-105.0); MEAN CORPUSCULAR HEMOGLOBIN 29.8 pg (25.0-35.0); MEAN CORPUSCULAR HGB CONC 33.3 g/dl (31.0-37.0); MEAN PLATELET VOLUME 9.9 fl (7.0-11.0); MONO # 0.6 (0.1-0.6); RBC 3.99 10^6/uL (3.5-6.1); RED CELL DISTRIBUTION WIDTH 13.8 % (11.5-14.5); WHITE BLOOD COUNT 6.1 10^3/ul (4.5-11.0)
[2017-11-28] MEDS: Propofol 10 mg/ml 1,000 MG/100 ML VIAL IV PRN ×2 (06:45→13:39)
[2017-11-28] MEDS: Levalbuterol 0.63 MG/3 ML Inhal Soln UD IH SCH ×3 (07:03→20:45)
[2017-11-28 07:12] LABS: ALB/GLOB RATIO 1.2 (1.1-1.8); ALBUMIN 3.1 g/dL (3.0-4.8); ALT/SGPT 69 U/L (7-56); AST/SGOT 51 U/L (17-59); BLOOD UREA NITROGEN 12 mg/dL (7-21); CALCIUM 9.1 mg/dL (8.4-10.5); GFR AFRICAN-AMERICAN > 60; GFR NON-AFRICAN AMERICAN > 60; MAGNESIUM 2.1 mg/dL (1.7-2.2)
[2017-11-28] MEDS ORDERED: Potassium Chloride 40 mEq/30 ml LIQ UD PO ONE (08:05)
[2017-11-28] MEDS ORDERED: Bacitracin 500 Units/gm Oint Foilpak UD TOP PRN (08:51)
--- NOTE | 2017-11-28 08:56 | CP.PCM.PN ---
<Singh Traore - Last Filed: 11/28/17 13:21> Subjective - Date & Time of Evaluation Date of Evaluation: 11/28/17 Time of Evaluation: 09:21 - Subjective Subjective: Singh Traore PGY1 IM Progress Note Patient was seen and examined in the ICU. Patient remains intubated and on sedation (propofol and precedex), but appears uncomfortable and is tremulous. Per nurses, the patient is also developing blisters on his R arm. ROS could not be obtained. Objective - Vital Signs/Intake and Output Vital Signs (last 24 hours): Temp Pulse Resp BP Pulse Ox 98 F 90 31 H 156/85 H 99 11/28/17 04:00 11/28/17 08:01 11/28/17 07:56 11/28/17 08:01 11/28/17 08:01 Intake and Output: 11/28/17 11/28/17 06:59 18:59 Intake Total 1011 100 Output Total 300 Balance 711 100 - Medications Medications: Current Medications Bacitracin (Bacitracin) 1 ea TOP Q6 PRN PRN Reason: Swelling Folic Acid (Folic Acid) 1 mg IVP DAILY [facility] Last Admin: 11/27/17 11:05 Dose: 1 mg Heparin Sodium (Porcine) (Heparin) 5,000 units SC Q12 [facility] PRN Reason: Protocol Last Admin: 11/28/17 00:29 Dose: 5,000 units Propofol (Diprivan) 1,000 mg in 100 mls @ 2.177 mls/hr IV .Q24H PRN; Protocol; 5 MCG/KG/MIN PRN Reason: TITRATE PER MD ORDER Last Admin: 11/28/17 06:45 Dose: 20 mcg/kg/min, 8.709 mls/hr Dexmedetomidine HCl (Precedex 4 Mcg/Ml (100 Ml)) 400 mcg in 100 mls @ 3.629 mls /hr IV .Q24H PRN; Protocol; 0.2 MCG/KG/HR PRN Reason: Agitation Last Admin: 11/28/17 08:23 Dose: 1 mcg/kg/hr, 18.144 mls/hr Insulin Human Lispro (Humalog Low) 0 units SC Q6H [facility] PRN Reason: Protocol Last Admin: 11/28/17 03:30 Dose: Not Given Levalbuterol HCl (Xopenex) 0.63 mg IH TIDRESP PRN PRN Reason: Shortness of Breath Levalbuterol HCl (Xopenex) 0.63 mg IH [id number] [facility] Last Admin: 11/28/17 07:03 Dose: 0.63 mg Lorazepam (Ativan) 4 mg IVP Q4H PRN PRN Reason: Agitation Last Admin: 11/28/17 08:37 Dose: 4 mg Pantoprazole Sodium (Protonix Inj) 40 mg IVP DAILY [facility] Last Admin: 11/27/17 10:47 Dose: 40 mg Thiamine HCl (Vitamin B1 Tab) 100 mg PO DAILY [facility] Last Admin: 11/27/17 11:05 Dose: 100 mg - Labs Labs: 11/28/17 05:30 11/28/17 05:30 PT 14.5 SECONDS (9.4-12.5) H 11/24/17 09:50 INR 1.26 (0.93-1.08) H 11/24/17 09:50 - Additional Findings Additional findings: - Constitutional Appears: Well, Non-toxic, No Acute Distress - Head Exam Head Exam: ATRAUMATIC, NORMAL INSPECTION - Eye Exam Eye Exam: Normal appearance, PERRL - ENT Exam ENT Exam: Mucous Membranes Moist Additional comments: intubated OGT in place with feeds - Neck Exam Neck Exam: Normal Inspection - Respiratory Exam Respiratory Exam: NORMAL BREATHING PATTERN, Rhonchi. absent: Rales, Wheezes Additional comments: intubated - Cardiovascular Exam Cardiovascular Exam: RRR, +S1, +S2 - GI/Abdominal Exam GI & Abdominal Exam: Soft, Normal Bowel Sounds. absent: Distended, Tenderness - Exam Additional comments: mackenzie in place - Extremities Exam Extremities Exam: Normal Inspection. absent: Pedal Edema - Neurological Exam Additional comments: sedated tremulous - Psychiatric Exam Additional comments: unable to obtain Assessment and Plan - Assessment and Plan (Free Text) Assessment: 62yo M with PMHx of Bipolar disorder and ETOH abuse in ICU for DTs. Patient initially admitted to psych for suicidal ideation then transferred to in- patient due to severe ETOH withdrawal with DTs requiring high-dose sedation and intubation. Plan: 1. ETOH withdrawal with Delirium Tremens - On precedex and propafol drip for sedation. ICU team managing - added Ativan 2mg SHIV in addition to PRN - S/p Intubation for airway protection on 11/25/17. ICU team managing - cont thiamine (increased to TID from daily) and folic acid supplementation - CIWA protocol - might consider adding Keppra if patient does not improve with Ativan 2. Altered Mental Status, currently being sedated for DT's - CT head was unremarkable - thiamine increased to protect against encephalopathy - neuro consulted, Dr. Rosenberg, appreciate recs 3. Blisters on hands (not affecting IV lines) - Multivitamin, vit C and Zinc added - Bacitracin ointment to be applied 4. Possible Rhabdomyolysis, improving with sedation - likely secondary to DT's - Total CK trending down - renal function has not been affected - Continue IVF for hydration - will monitor 5. Fever of unknown origin - Likely secondary to ETOH withdrawals - CXR showing trace right bibasilar pleural effusion - Blood and stool Cxs show no growth - No Leukocytosis, afebrile. Abx discontinued per ID - ID following, appreciate recs 6. Electrolyte imbalance (hypokalemia) - monitor and replete as needed 7. Suicidal Ideation - 1:1 observation when patient comes off sedation - Psych following, will follow up with patient once more stable 8. PPx - SCDs - Aspiration precautions - Seizure precautions - Heparin SC - Protonix Patient was seen, examined and discussed with attending, Dr. Shankar Traore PGY1 Pager # [phone] <Charlotte Chaparro - Last Filed: 11/29/17 13:20> Objective - Vital Signs/Intake and Output Vital Signs (last 24 hours): Temp Pulse Resp BP Pulse Ox 99.5 F 100 H 31 H 155/100 H 99 11/28/17 20:00 11/29/17 09:00 11/28/17 07:56 11/29/17 09:00 11/29/17 09:00 Intake and Output: 11/29/17 11/29/17 06:59 18:59 Intake Total 1960 100 Output Total 525 Balance 1436 100 - Medications Medications: Current Medications Ascorbic Acid (Vitamin C 500 Mg Tab) 500 mg PO DAILY [facility] Last Admin: 11/29/17 09:27 Dose: 500 mg Bacitracin (Bacitracin) 1 ea TOP Q6 PRN PRN Reason: Swelling Last Admin: 02/09/18 09:34 Dose: 1 ea Folic Acid (Folic Acid) 1 mg IVP DAILY [facility] Last Admin: 11/29/17 09:43 Dose: 1 mg Heparin Sodium (Porcine) (Heparin) 5,000 units SC Q12 [facility] PRN Reason: Protocol Last Admin: 11/29/17 09:26 Dose: 5,000 units Propofol (Diprivan) 1,000 mg in 100 mls @ 2.177 mls/hr IV .Q24H PRN; Protocol; 5 MCG/KG/MIN PRN Reason: TITRATE PER MD ORDER Last Admin: 11/29/17 07:32 Dose: 40 mcg/kg/min, 17.418 mls/hr Dexmedetomidine HCl (Precedex 4 Mcg/Ml (100 Ml)) 400 mcg in 100 mls @ 3.629 mls /hr IV .Q24H PRN; Protocol; 0.2 MCG/KG/HR PRN Reason: Agitation Last Titration: 11/29/17 00:58 Dose: 1.5 mcg/kg/hr, 27.216 mls/hr Insulin Human Lispro (Humalog Low) 0 units SC Q6H [facility] PRN Reason: Protocol Last Admin: 11/29/17 03:30 Dose: Not Given Levalbuterol HCl (Xopenex) 0.63 mg IH TIDRESP PRN PRN Reason: Shortness of Breath Levalbuterol HCl (Xopenex) 0.63 mg IH [id number] [facility] Last Admin: 11/29/17 13:14 Dose: 0.63 mg Lorazepam (Ativan) 4 mg IVP Q4H PRN PRN Reason: Agitation Last Admin: 11/29/17 05:13 Dose: 4 mg Lorazepam (Ativan) 2 mg IVP TID [facility] PRN Reason: Protocol Last Admin: 11/28/17 17:14 Dose: 2 mg Multivitamins/Minerals (Therapeutic-M Tab) 1 tab PO 0800 [facility] Last Admin: 11/29/17 09:27 Dose: 1 tab Pantoprazole Sodium (Protonix Inj) 40 mg IVP DAILY [facility] Last Admin: 11/29/17 09:27 Dose: 40 mg Thiamine HCl (Vitamin B1 Tab) 100 mg PO TID [facility] Last Admin: 11/29/17 09:27 Dose: 100 mg Zinc Sulfate (Zinc Sulfate 220 Mg Cap) 220 mg PO DAILY [facility] Last Admin: 11/29/17 09:28 Dose: 220 mg - Labs Labs: 11/29/17 05:00 11/29/17 05:00 PT 14.5 SECONDS (9.4-12.5) H 11/24/17 09:50 INR 1.26 (0.93-1.08) H 11/24/17 09:50 Attending/Attestation - Attestation I have personally seen and examined this patient.: Yes I have fully participated in the care of the patient.: Yes I have reviewed all pertinent clinical information, including history, physical exam and plan: Yes Notes (Text): 11/29/17 13:18 Attending note; Patient seen and examined with resident in ICU. Patient is currently intubated and sedated. Patient is a 62 year old male with history of bipolar disorder and alcohol abuse who was transferred from psych unit for management of alcohol withdrawal. Patient is intubated for delirium tremens. Weaning trial as per ICU team. Fever; resolved.secondary to alcohol withdrawal. blood culture is negative. C. difficile negative. MRSA negative. Pro-calcitonin is negative. Anti-biotics discontinued. Repeat chest x-ray Is negative. ID evaluation appreciated. Elevated LFTs; secondary to alcohol abuse. Trending down. started on tube feeding. Mild rhabdomyolysis; CPK is trending down. Continue IV fluids. Continue Precedex drip and propofol drip. Monitor in ICU closely.
--- NOTE | 2017-11-28 09:22 | CP.PCM.PN ---
<Keira Lawrence - Last Filed: 11/28/17 09:18> Subjective - Date & Time of Evaluation Date of Evaluation: 11/28/17 Time of Evaluation: 09:22 - Subjective Subjective: ICU Progress Note for Reza Gibson PGY2 Patient seen and examined at bedside. There were no acute overnight events. He is intubated and sedated on Precedex and Propofol. ROS could not be obtained. Objective - Vital Signs/Intake and Output Vital Signs (last 24 hours): Temp Pulse Resp BP Pulse Ox 98 F 90 31 H 156/85 H 99 11/28/17 04:00 11/28/17 08:01 11/28/17 07:56 11/28/17 08:01 11/28/17 08:01 Intake and Output: 11/28/17 11/28/17 06:59 18:59 Intake Total 1011 100 Output Total 300 Balance 711 100 - Medications Medications: Current Medications Bacitracin (Bacitracin) 1 ea TOP Q6 PRN PRN Reason: Swelling Folic Acid (Folic Acid) 1 mg IVP DAILY [facility] Last Admin: 11/27/17 11:05 Dose: 1 mg Heparin Sodium (Porcine) (Heparin) 5,000 units SC Q12 [facility] PRN Reason: Protocol Last Admin: 11/28/17 09:09 Dose: 5,000 units Propofol (Diprivan) 1,000 mg in 100 mls @ 2.177 mls/hr IV .Q24H PRN; Protocol; 5 MCG/KG/MIN PRN Reason: TITRATE PER MD ORDER Last Admin: 11/28/17 06:45 Dose: 20 mcg/kg/min, 8.709 mls/hr Dexmedetomidine HCl (Precedex 4 Mcg/Ml (100 Ml)) 400 mcg in 100 mls @ 3.629 mls /hr IV .Q24H PRN; Protocol; 0.2 MCG/KG/HR PRN Reason: Agitation Last Admin: 11/28/17 08:23 Dose: 1 mcg/kg/hr, 18.144 mls/hr Insulin Human Lispro (Humalog Low) 0 units SC Q6H [facility] PRN Reason: Protocol Last Admin: 11/28/17 09:10 Dose: Not Given Levalbuterol HCl (Xopenex) 0.63 mg IH TIDRESP PRN PRN Reason: Shortness of Breath Levalbuterol HCl (Xopenex) 0.63 mg IH [id number] [facility] Last Admin: 11/28/17 07:03 Dose: 0.63 mg Lorazepam (Ativan) 4 mg IVP Q4H PRN PRN Reason: Agitation Last Admin: 11/28/17 08:37 Dose: 4 mg Pantoprazole Sodium (Protonix Inj) 40 mg IVP DAILY [facility] Last Admin: 11/28/17 09:09 Dose: 40 mg Thiamine HCl (Vitamin B1 Tab) 100 mg PO DAILY [facility] Last Admin: 11/27/17 11:05 Dose: 100 mg - Labs Labs: 11/28/17 05:30 11/28/17 05:30 PT 14.5 SECONDS (9.4-12.5) H 11/24/17 09:50 INR 1.26 (0.93-1.08) H 11/24/17 09:50 - Constitutional Appears: No Acute Distress - Head Exam Head Exam: ATRAUMATIC, NORMAL INSPECTION, NORMOCEPHALIC - Eye Exam Eye Exam: Normal appearance, PERRL Pupil Exam: NORMAL ACCOMODATION, PERRL - ENT Exam ENT Exam: Mucous Membranes Moist - Respiratory Exam Respiratory Exam: Clear to Ausculation Bilateral, NORMAL BREATHING PATTERN. absent: Rales, Rhonchi, Wheezes - Cardiovascular Exam Cardiovascular Exam: REGULAR RHYTHM, +S1, +S2. absent: Gallop, Rubs, Murmur - GI/Abdominal Exam GI & Abdominal Exam: Distended, Soft, Normal Bowel Sounds. absent: Tenderness, Mass, Rebound - Extremities Exam Extremities Exam: absent: Calf Tenderness, Pedal Edema Additional comments: Blisters on R hand - Neurological Exam Neurological Exam: CN II-XII Intact. absent: Alert, Awake - Skin Skin Exam: Dry, Warm Additional comments: R hand blisters Assessment and Plan - Assessment and Plan (Free Text) Assessment: This is a 72yo M with past medical history of bipolar disorder admitted for delirium tremens secondary to EtOH withdrawal as well we rhabdomyolysis ( improved). Plan: Neuro: - Intubated/Sedated on Propofol and Precedex - Neuro consulted- recs appreciated - CIWA protocol, seizure precaution, aspiration precaution - Ativan prn - Head CT negative for acute pathology Cardio: - Patient is HD stable - Maintain MAP> 65mmHg Pulm: - Intubated on PRVC, will do PS as tolerated - Protective lung ventilation strategy, HOB elevated - Aspiration precautions - Continue Xopenex - Maintain spO2>90% GI: - Transaminitis improving- secondary to EtOH abuse - Tube feeds@30ml/hr - Thiamine, Folic acid Heme: - Hgb stable without no overt signs of bleeding - Continue to monitor H/H Nephro: - Rhabdomyolysis improving - CK: 318 - Hypokalemia, will replace - Will continue to monitor electrolytes and replace as needed - Monitor I&O ID: - Afebrile, no leukocytosis - PCT: 0.14 - ID consulted- recs appreciated - No sign of infection at this time Psych: - Hx of Bipolar - Psych consulted- recs appreciated GI ppx: Protonix DVT ppx: Heparin Diet: Tube feeds Dispo: Will try to wean off of sedation as tolerated Case seen, discussed and reviewed with attending. Reza Lawrence PGY2 <Mike Velez - Last Filed: 11/28/17 17:24> Objective - Vital Signs/Intake and Output Vital Signs (last 24 hours): Temp Pulse Resp BP Pulse Ox 98 F 90 31 H 156/85 H 99 11/28/17 04:00 11/28/17 08:01 11/28/17 07:56 11/28/17 08:01 11/28/17 08:01 Intake and Output: 11/28/17 11/28/17 06:59 18:59 Intake Total 1011 300 Output Total 300 Balance 711 300 - Medications Medications: Current Medications Ascorbic Acid (Vitamin C 500 Mg Tab) 500 mg PO DAILY [facility] Last Admin: 11/28/17 12:08 Dose: 500 mg Bacitracin (Bacitracin) 1 ea TOP Q6 PRN PRN Reason: Swelling Last Admin: 11/28/17 09:34 Dose: 1 ea Folic Acid (Folic Acid) 1 mg IVP DAILY [facility] Last Admin: 11/28/17 10:20 Dose: 1 mg Heparin Sodium (Porcine) (Heparin) 5,000 units SC Q12 [facility] PRN Reason: Protocol Last Admin: 11/28/17 09:09 Dose: 5,000 units Propofol (Diprivan) 1,000 mg in 100 mls @ 2.177 mls/hr IV .Q24H PRN; Protocol; 5 MCG/KG/MIN PRN Reason: TITRATE PER MD ORDER Last Admin: 11/28/17 13:39 Dose: 20 mcg/kg/min, 8.709 mls/hr Dexmedetomidine HCl (Precedex 4 Mcg/Ml (100 Ml)) 400 mcg in 100 mls @ 3.629 mls /hr IV .Q24H PRN; Protocol; 0.2 MCG/KG/HR PRN Reason: Agitation Last Admin: 11/28/17 12:40 Dose: 1 mcg/kg/hr, 18.144 mls/hr Insulin Human Lispro (Humalog Low) 0 units SC Q6H [facility] PRN Reason: Protocol Last Admin: 11/28/17 16:15 Dose: Not Given Levalbuterol HCl (Xopenex) 0.63 mg IH TIDRESP PRN PRN Reason: Shortness of Breath Levalbuterol HCl (Xopenex) 0.63 mg IH [id number] [facility] Last Admin: 11/28/17 13:39 Dose: 0.63 mg Lorazepam (Ativan) 4 mg IVP Q4H PRN PRN Reason: Agitation Last Admin: 11/28/17 12:26 Dose: 4 mg Lorazepam (Ativan) 2 mg IVP TID [facility] PRN Reason: Protocol Last Admin: 11/28/17 17:14 Dose: 2 mg Multivitamins/Minerals (Therapeutic-M Tab) 1 tab PO 0800 [facility] Pantoprazole Sodium (Protonix Inj) 40 mg IVP DAILY [facility] Last Admin: 11/28/17 09:09 Dose: 40 mg Thiamine HCl (Vitamin B1 Tab) 100 mg PO TID [facility] Last Admin: 11/28/17 17:13 Dose: 100 mg Zinc Sulfate (Zinc Sulfate 220 Mg Cap) 220 mg PO DAILY [facility] Last Admin: 11/28/17 12:08 Dose: 220 mg - Labs Labs: 11/28/17 05:30 11/28/17 05:30 PT 14.5 SECONDS (9.4-12.5) H 11/24/17 09:50 INR 1.26 (0.93-1.08) H 11/24/17 09:50 Attending/Attestation - Attestation I have personally seen and examined this patient.: Yes I have fully participated in the care of the patient.: Yes I have reviewed all pertinent clinical information, including history, physical exam and plan: Yes Notes (Text): 11/28/17 17:[address] Velez's note
--- NOTE | 2017-11-28 13:14 | RAD ---
HISTORY: intubated COMPARISON: Portable chest 11/27/2017. FINDINGS: Endotracheal and nasogastric tubes appear unchanged in position. LUNGS: No active pulmonary disease. PLEURA: Trace right pleural effusion difficult to exclude once again with none seen at the left. No pneumothorax identified bilaterally. CARDIOVASCULAR: Normal. OSSEOUS STRUCTURES: No significant abnormalities. VISUALIZED UPPER ABDOMEN: Normal. OTHER FINDINGS: None. IMPRESSION: Trace right basilar pleural effusion again questioned laterally. No interval infiltrate bilaterally.
--- NOTE | 2017-11-28 14:17 | CP.PCM.PN ---
Subjective - Date & Time of Evaluation Date of Evaluation: 11/28/17 Time of Evaluation: 14:16 - Subjective Subjective: Mr. Koch was seen and examined at the bedside in ICU. He remains on mechanical ventilator on PRVC mode. He is receiving sedation of precedex and propofol. He has GCS- 4T, pupils remains reactive to light accommodation but sluggish, with episode of restlessness and agitation. There was no untoward events overnight. Objective - Vital Signs/Intake and Output Vital Signs (last 24 hours): Temp Pulse Resp BP Pulse Ox 98 F 90 31 H 156/85 H 99 11/28/17 04:00 11/28/17 08:01 11/28/17 07:56 11/28/17 08:01 11/28/17 08:01 Intake and Output: 11/28/17 11/28/17 06:59 18:59 Intake Total 1011 300 Output Total 300 Balance 711 300 - Medications Medications: Current Medications Ascorbic Acid (Vitamin C 500 Mg Tab) 500 mg PO DAILY [facility] B[facility]S [facility] Last Admin: 11/28/17 12:08 Dose: 500 mg Bacitracin (Bacitracin) 1 ea TOP Q6 PRN PRN Reason: Swelling Last Admin: 11/28/17 09:34 Dose: 1 ea Folic Acid (Folic Acid) 1 mg IVP DAILY [facility] 234 BEDS AT [facility] Last Admin: 11/28/17 10:20 Dose: 1 mg Heparin Sodium (Porcine) (Heparin) 5,000 units SC Q12 [facility] PRN Reason: Protocol Last Admin: 11/28/17 09:09 Dose: 5,000 units Propofol (Diprivan) 1,000 mg in 100 mls @ 2.177 mls/hr IV .Q24H PRN; Protocol; 5 MCG/KG/MIN PRN Reason: TITRATE PER MD ORDER Last Admin: 11/28/17 13:39 Dose: 20 mcg/kg/min, 8.709 mls/hr Dexmedetomidine HCl (Precedex 4 Mcg/Ml (100 Ml)) 400 mcg in 100 mls @ 3.629 mls /hr IV .Q24H PRN; Protocol; 0.2 MCG/KG/HR PRN Reason: Agitation Last Admin: 11/28/17 12:40 Dose: 1 mcg/kg/hr, 18.144 mls/hr Insulin Human Lispro (Humalog Low) 0 units SC Q6H [facility] PRN Reason: Protocol Last Admin: 11/28/17 09:10 Dose: Not Given Levalbuterol HCl (Xopenex) 0.63 mg IH TIDRESP PRN PRN Reason: Shortness of Breath Levalbuterol HCl (Xopenex) 0.63 mg IH [id number] [facility] Last Admin: 11/28/17 13:39 Dose: 0.63 mg Lorazepam (Ativan) 4 mg IVP Q4H PRN PRN Reason: Agitation Last Admin: 11/28/17 12:26 Dose: 4 mg Lorazepam (Ativan) 2 mg IVP TID [facility] PRN Reason: Protocol Multivitamins/Minerals (Therapeutic-M Tab) 1 tab PO 0800 [facility] Pantoprazole Sodium (Protonix Inj) 40 mg IVP DAILY [facility] 234 BEDS [facility] Last Admin: 11/28/17 09:09 Dose: 40 mg Thiamine HCl (Vitamin B1 Tab) 100 mg PO TID [facility] Zinc Sulfate (Zinc Sulfate 220 Mg Cap) 220 mg PO DAILY [facility] 234 BEDS AT [facility] Last Admin: 11/28/17 12:08 Dose: 220 mg - Labs Labs: 11/28/17 05:30 11/28/17 05:30 PT 14.5 SECONDS (9.4-12.5) H 11/24/17 09:50 INR 1.26 (0.93-1.08) H 11/24/17 09:50 - Constitutional Appears: No Acute Distress - Head Exam Head Exam: NORMAL INSPECTION - Neurological Exam Neuro motor strength exam: Left Upper Extremity: 0, Right Upper Extremity: 0, Left Lower Extremity: 0, Right Lower Extremity: 0 Additional comments: GCS 4T, with episode of restlessness and agitation. Assessment and Plan (1) Altered mental status, unspecified Assessment & Plan: Case discussed with Dr. Rosenberg, continue all medical regimen. Recommend EEG if stable. Status: Acute
--- NOTE | 2017-11-28 16:36 | PN ---
DATE: 11/28/2017 SUBJECTIVE: The patient is seen and examined at bedside. He is sedated. During sedation vacation, he was agitated, not really responsive to commands and questions. At present time, he is on 20 mcg/kg/minute of propofol and 1 mcg/kg/hour of Precedex. He is on 20 mL/hour of enteral feeds. He is comfortable. He is on PRVC 400/18/5/35. PHYSICAL EXAMINATION: VITAL SIGNS: Blood pressure 116/68, oxygen saturation 100%, end-tidal CO2 on the monitor of 1469, respiratory rate is 18. HEENT: Head and neck atraumatic. LUNGS: Clear to auscultation bilaterally. HEART: Regular rate and rhythm. S1 and S2 normal. ABDOMEN: Soft, nontender and nondistended. MUSCULOSKELETAL: No C/C/E. NEUROLOGIC: The patient moves all extremities spontaneously. SKIN: Moist. PSYCH: The patient is sedated. CAT scan of the head yesterday did not reveal any acute intracranial pathology. EEG is ordered and pending. LABORATORY DATA: WBC 6.1, hemoglobin 11.9, platelet count 255. Sodium 146, potassium 3.3, chloride 110, carbon dioxide 29, BUN 12, creatinine 0.7, glucose 101, AST 51, ALT 69, bilirubin 0.5. INR 1.26. Blood gas today before sedation vacation and weaning trial 7.45/41/83 on 35% FIO2. MEDICATIONS: Vitamin C, bacitracin p.r.n., Precedex, folic acid, heparin subcu, regular insulin sliding scale low protocol, Xopenex p.r.n. and every 6 hours, Ativan p.r.n., multivitamins, Protonix, potassium, propofol, zinc, thiamine. ASSESSMENT AND PLAN: This is a 62-year-old gentleman with presumed alcohol withdrawal/delirium tremens with altered mental status and substantial agitation requiring intubation for airway protection. At present time, the patient is still not coming around and requiring propofol and Precedex combination for sedation. We tried everyday to wean him off propofol; however, had to restart small dose of propofol due to his substantial agitation and substantial ventilator dyssynchrony. CAT scan of the head was negative for acute intracranial pathology. EEG was ordered to rule out nonconvulsive seziures. Meanwhile, we will continue to maintain euvolemia, euglycemia, normothermia and oxygen saturation more than 90%. The patient does not have any leukocytosis. The patient remains afebrile. Renal function normal. Blood glucose 101. He tolerates enteral nutrition well. He has a good urine output. We will continue to maintain mean arterial pressure more than 65, euvolemia, euglycemia for additional nephroprotective effect. We will continue with deep venous thrombosis and gastrointestinal prophylaxis. ccm time 40 min Mike Velez MD [facility]
--- NOTE | 2017-11-28 18:56 | CP.PCM.PN ---
Subjective - Date & Time of Evaluation Date of Evaluation: 11/28/17 Time of Evaluation: 17:15 - Subjective Subjective: Infectious Disease Follow Up: November 28, 2017 62 yo male with medical history that includes Bipolar disorder and alcohol abuse presented with EtOH intoxication and now in withdrawals. Originally in the psych floor for bipolar disease treatment and suicidal ideation on 11/21/2017. The patient required intubation today. ID called for possible aspiration pneumonia. No fevers, leukocytosis at this time. Remains intubated. Still on fevers or leukocytosis. Remains sedated. Noted blistered skin on right hand. No new issues. Objective - Vital Signs/Intake and Output Vital Signs (last 24 hours): Temp Pulse Resp BP Pulse Ox 98 F 71 31 H 106/54 L 100 11/28/17 04:00 11/28/17 17:00 11/28/17 07:56 11/28/17 17:00 11/28/17 17:00 Intake and Output: 11/28/17 11/28/17 06:59 18:59 Intake Total 1011 400 Output Total 300 Balance 711 400 - Medications Medications: Current Medications Ascorbic Acid (Vitamin C 500 Mg Tab) 500 mg PO DAILY [facility] Last Admin: 11/28/17 12:08 Dose: 500 mg Bacitracin (Bacitracin) 1 ea TOP Q6 PRN PRN Reason: Swelling Last Admin: 11/28/17 09:34 Dose: 1 ea Folic Acid (Folic Acid) 1 mg IVP DAILY [facility] Last Admin: 11/28/17 10:20 Dose: 1 mg Heparin Sodium (Porcine) (Heparin) 5,000 units SC Q12 SHIV PRN Reason: Protocol Last Admin: 11/28/17 09:09 Dose: 5,000 units Propofol (Diprivan) 1,000 mg in 100 mls @ 2.177 mls/hr IV .Q24H PRN; Protocol; 5 MCG/KG/MIN PRN Reason: TITRATE PER MD ORDER Last Admin: 11/28/17 13:39 Dose: 20 mcg/kg/min, 8.709 mls/hr Dexmedetomidine HCl (Precedex 4 Mcg/Ml (100 Ml)) 400 mcg in 100 mls @ 3.629 mls /hr IV .Q24H PRN; Protocol; 0.2 MCG/KG/HR PRN Reason: Agitation Last Admin: 11/28/17 18:19 Dose: 1 mcg/kg/hr, 18.144 mls/hr Insulin Human Lispro (Humalog Low) 0 units SC Q6H SHIV PRN Reason: Protocol Last Admin: 11/28/17 16:15 Dose: Not Given Levalbuterol HCl (Xopenex) 0.63 mg IH TIDRESP PRN PRN Reason: Shortness of Breath Levalbuterol HCl (Xopenex) 0.63 mg IH [id number] [facility] Last Admin: 11/28/17 13:39 Dose: 0.63 mg Lorazepam (Ativan) 4 mg IVP Q4H PRN PRN Reason: Agitation Last Admin: 11/28/17 12:26 Dose: 4 mg Lorazepam (Ativan) 2 mg IVP TID SHIV PRN Reason: Protocol Last Admin: 11/28/17 17:14 Dose: 2 mg Multivitamins/Minerals (Therapeutic-M Tab) 1 tab PO 0800 [facility] Pantoprazole Sodium (Protonix Inj) 40 mg IVP DAILY [facility] Last Admin: 11/28/17 09:09 Dose: 40 mg Thiamine HCl (Vitamin B1 Tab) 100 mg PO TID [facility] Last Admin: 11/28/17 17:13 Dose: 100 mg Zinc Sulfate (Zinc Sulfate 220 Mg Cap) 220 mg PO DAILY [facility] Last Admin: 11/28/17 12:08 Dose: 220 mg - Labs Labs: 11/28/17 05:30 11/28/17 05:30 PT 14.5 SECONDS (9.4-12.5) H 11/24/17 09:50 INR 1.26 (0.93-1.08) H 11/24/17 09:50 - Constitutional Appears: Non-toxic, No Acute Distress, Chronically Ill - Head Exam Additional comments: intubated and ventilated. - Eye Exam Eye Exam: EOMI, PERRL Pupil Exam: NORMAL ACCOMODATION, PERRL - ENT Exam ENT Exam: Mucous Membranes Moist, Normal External Ear Exam, TM's Normal Bilaterally - Neck Exam Neck Exam: Full ROM, Normal Inspection - Respiratory Exam Respiratory Exam: Clear to Ausculation Bilateral, NORMAL BREATHING PATTERN. absent: Rales, Rhonchi, Wheezes - Cardiovascular Exam Cardiovascular Exam: REGULAR RHYTHM, RRR, +S1, +S2 - GI/Abdominal Exam GI & Abdominal Exam: Soft, Normal Bowel Sounds. absent: Distended, Tenderness - Extremities Exam Extremities Exam: Full ROM, Normal Inspection - Neurological Exam Additional comments: Intubated and Ventilated. - Psychiatric Exam Psychiatric exam: Normal Affect, Normal Mood - Skin Skin Exam: Intact, Normal Color Assessment and Plan - Assessment and Plan (Free Text) Assessment: 62 yo male with EtOH abuse. Developed EtOH withdrawal and now required intubation and ventilation. The patient was being evaluated by ID for potential aspiration. The patient is currently on Cefepime and Vancomycin. If aspiration is a significant concern, would either add Flagyl IV or switch Cefepime to Meropenem or Zosyn. Febrile several days ago up to 102 F. Afebrile the last few days. No leukocytosis. No findings on Chest X-ray. Supportive care. Procalcitonin is 0.14 which is low. Noted procalcitonin repeated. More likely secondary to the EtOH withdrawal and Delirium Tremens. Case discussed with team. Off antibiotics now. From ID point of view, no obvious infection sources at this time. Patient appears to be more awake and alert. Will Monitor. Supportive care. Thank you for allowing me to participate in the care of the patient, we will follow with you.
[2017-11-29] MEDS: Propofol 10 mg/ml 1,000 MG/100 ML VIAL IV PRN ×3 (00:53→07:32)
[2017-11-29] MEDS: Levalbuterol 0.63 MG/3 ML Inhal Soln UD IH SCH ×4 (01:35→19:00)
[2017-11-29] MEDS: Insulin Lispro (humaLOG) LOW Coverage SC SCH ×4 (03:30→22:02)
[2017-11-29 05:59] LABS: BASO # 0.02 K/mm3 (0.0-2.0); BASO % 0.4 % (0.0-3.0); EOS # 0.2 (0.0-0.7); EOS % 3.1 % (1.5-5.0); GRAN # 3.8 (1.4-6.5); GRAN % 74.2 % (50.0-68.0); HEMOGLOBIN 11.8 g/dL (14.0-18.0); LYMPH # 0.7 (1.2-3.4); LYMPH % 14.5 % (22.0-35.0); MEAN CELL VOLUME 90.6 fl (80.0-105.0); MEAN CORPUSCULAR HEMOGLOBIN 29.9 pg (25.0-35.0); MONO # 0.4 (0.1-0.6); MONO % 7.8 % (1.0-6.0); RBC 3.95 10^6/uL (3.5-6.1); RED CELL DISTRIBUTION WIDTH 13.9 % (11.5-14.5); WHITE BLOOD COUNT 5.1 10^3/ul (4.5-11.0)
[2017-11-29 06:08] LABS: ARTERIAL BLOOD GAS HCO3 27.4 mmol/L (21-28); ARTERIAL BLOOD GAS O2 CAPACITY 16.5 mL/dl (16-24); ARTERIAL BLOOD GAS O2 CONTENT 16.3 ML/dl (15-23); ARTERIAL BLOOD GAS PCO2 36 mm/Hg (35-45); ARTERIAL BLOOD GAS PH 7.49 (7.35-7.45); ARTERIAL BLOOD GAS TCO2 28.5 mmol.L (22-28)
[2017-11-29 06:22] LABS: ALB/GLOB RATIO 1.2 (1.1-1.8); ALBUMIN 3.2 g/dL (3.0-4.8); ALT/SGPT 76 U/L (7-56); AST/SGOT 54 U/L (17-59); BLOOD UREA NITROGEN 13 mg/dL (7-21); GFR AFRICAN-AMERICAN > 60; GFR NON-AFRICAN AMERICAN > 60
[2017-11-29] MEDS: Multivitamin With Minerals Tab PO SCH (09:27)
--- NOTE | 2017-11-29 10:09 | RAD ---
HISTORY: Intubated. COMPARISON: Multiple serial examinations preceding the most recent study: November 28, 2017. Time of the most recent examination: 05:18. FINDINGS: LUNGS: Fine loss, elevation of the right hemidiaphragm. Surgical clips in the right nestor thorax. PLEURA: No significant pleural effusion identified, no pneumothorax apparent. CARDIOVASCULAR: No radiographic findings to suggest acute or significant cardiovascular disease. OSSEOUS STRUCTURES: No significant abnormalities. VISUALIZED UPPER ABDOMEN: Normal. OTHER FINDINGS: Stable position of support apparatus including endotracheal tube and nasogastric tube. IMPRESSION: No significant interval change compared to the prior examination(s).
--- NOTE | 2017-11-29 10:35 | CP.PCM.PN ---
<Keira Lawrence - Last Filed: 11/29/17 10:31> Subjective - Date & Time of Evaluation Date of Evaluation: 11/29/17 Time of Evaluation: 10:31 - Subjective Subjective: ICU Progress Note for Reza Estrada PGY2 Patient seen and examined at bedside. There were no acute events as per nursing staff. Patient is intubated and sedated. ROS could not be obtained. Objective - Vital Signs/Intake and Output Vital Signs (last 24 hours): Temp Pulse Resp BP Pulse Ox 99.5 F 100 H 31 H 155/100 H 99 11/28/17 20:00 11/29/17 09:00 11/28/17 07:56 11/29/17 09:00 11/29/17 09:00 Intake and Output: 11/29/17 11/29/17 06:59 18:59 Intake Total 1961 100 Output Total 525 Balance 1436 100 - Medications Medications: Current Medications Ascorbic Acid (Vitamin C 500 Mg Tab) 500 mg PO DAILY [facility] Last Admin: 11/29/17 09:27 Dose: 500 mg Bacitracin (Bacitracin) 1 ea TOP Q6 PRN PRN Reason: Swelling Last Admin: 11/28/17 09:34 Dose: 1 ea Folic Acid (Folic Acid) 1 mg IVP DAILY [facility] Last Admin: 11/29/17 09:43 Dose: 1 mg Heparin Sodium (Porcine) (Heparin) 5,000 units SC Q12 SHIV PRN Reason: Protocol Last Admin: 11/29/17 09:26 Dose: 5,000 units Propofol (Diprivan) 1,000 mg in 100 mls @ 2.177 mls/hr IV .Q24H PRN; Protocol; 5 MCG/KG/MIN PRN Reason: TITRATE PER MD ORDER Last Admin: 11/29/17 07:32 Dose: 40 mcg/kg/min, 17.418 mls/hr Dexmedetomidine HCl (Precedex 4 Mcg/Ml (100 Ml)) 400 mcg in 100 mls @ 3.629 mls /hr IV .Q24H PRN; Protocol; 0.2 MCG/KG/HR PRN Reason: Agitation Last Titration: 11/29/17 00:58 Dose: 1.5 mcg/kg/hr, 27.216 mls/hr Insulin Human Lispro (Humalog Low) 0 units SC Q6H SHIV PRN Reason: Protocol Last Admin: 11/29/17 03:30 Dose: Not Given Levalbuterol HCl (Xopenex) 0.63 mg IH TIDRESP PRN PRN Reason: Shortness of Breath Levalbuterol HCl (Xopenex) 0.63 mg IH [id number] SHIV Last Admin: 11/29/17 07:41 Dose: 0.63 mg Lorazepam (Ativan) 4 mg IVP Q4H PRN PRN Reason: Agitation Last Admin: 11/29/17 05:13 Dose: 4 mg Lorazepam (Ativan) 2 mg IVP TID SHIV PRN Reason: Protocol Last Admin: 11/28/17 17:14 Dose: 2 mg Multivitamins/Minerals (Therapeutic-M Tab) 1 tab PO 0800 [facility] Last Admin: 11/29/17 09:27 Dose: 1 tab Pantoprazole Sodium (Protonix Inj) 40 mg IVP DAILY [facility] Last Admin: 11/29/17 09:27 Dose: 40 mg Thiamine HCl (Vitamin B1 Tab) 100 mg PO TID [facility] Last Admin: 11/29/17 09:27 Dose: 100 mg Zinc Sulfate (Zinc Sulfate 220 Mg Cap) 220 mg PO DAILY [facility] Last Admin: 11/29/17 09:28 Dose: 220 mg - Labs Labs: 11/29/17 05:00 11/29/17 05:00 PT 14.5 SECONDS (9.4-12.5) H 11/24/17 09:50 INR 1.26 (0.93-1.08) H 11/24/17 09:50 - Constitutional Appears: No Acute Distress - Head Exam Head Exam: ATRAUMATIC, NORMAL INSPECTION, NORMOCEPHALIC - Eye Exam Eye Exam: Normal appearance, PERRL Pupil Exam: NORMAL ACCOMODATION, PERRL - ENT Exam ENT Exam: Mucous Membranes Moist - Neck Exam Neck Exam: Full ROM - Respiratory Exam Respiratory Exam: Clear to Ausculation Bilateral, NORMAL BREATHING PATTERN. absent: Rales, Rhonchi, Wheezes - Cardiovascular Exam Cardiovascular Exam: REGULAR RHYTHM, +S1, +S2. absent: Gallop, Rubs, Murmur - GI/Abdominal Exam GI & Abdominal Exam: Distended, Soft, Normal Bowel Sounds. absent: Tenderness, Rebound - Extremities Exam Extremities Exam: Normal Inspection. absent: Calf Tenderness, Pedal Edema - Neurological Exam Neurological Exam: CN II-XII Intact. absent: Alert, Awake - Skin Skin Exam: Dry, Warm Assessment and Plan - Assessment and Plan (Free Text) Assessment: This is a 72yo M with past medical history of bipolar disorder admitted for delirium tremens secondary to EtOH withdrawal as well we rhabdomyolysis ( improved) Plan: Neuro: - Intubated and sedated on Propofol and Precedex- will wean as tolerated - Neuro consulted- recs appreciated- recommend EEG on Friday - Continue CIWA protocol, seizure precaution, aspiration precaution - Ativan prn and scheduled - Head CT negative for acute pathology Cardio: - HD stable - Maintain MAP> 65mmHg Pulm: - Intubated on PRVC- wean as tolerated - Protective lung ventilation strategy, HOB elevated - Aspiration precautions, Xopenex - Maintain spO2>90% GI: - Tube feeds@30ml/hr - Thiamine, Folic acid Heme: - Hgb stable Nephro: - Rhabdomyolysis- resolved - CK: 200s - Hypokalemia (K: 3.4) - Will continue to monitor electrolytes and replace as needed - Continue to monitor I&O ID: - Afebrile, no leukocytosis - No sign of infection at this time - PCT: 0.14 low - ID consulted- recs appreciated Psych: - Hx of Bipolar - Psych consulted- recs appreciated - will evaluate once off of sedation GI ppx: Protonix DVT ppx: Heparin SC Diet: Tube feeds Dispo: Will try to wean off of sedation as tolerated. Plan for neuro is EEG friday. Case seen, discussed and reviewed with attending. Reza Lawrence PGY2 <Cooper Kong - Last Filed: 11/29/17 11:47> Objective - Vital Signs/Intake and Output Vital Signs (last 24 hours): Temp Pulse Resp BP Pulse Ox 99.5 F 100 H 31 H 155/100 H 99 11/28/17 20:00 11/29/17 09:00 11/28/17 07:56 11/29/17 09:00 11/29/17 09:00 Intake and Output: 11/29/17 11/29/17 06:59 18:59 Intake Total 1961 100 Output Total 525 Balance 1436 100 - Medications Medications: Current Medications Ascorbic Acid (Vitamin C 500 Mg Tab) 500 mg PO DAILY [facility] Last Admin: 11/29/17 09:27 Dose: 500 mg Bacitracin (Bacitracin) 1 ea TOP Q6 PRN PRN Reason: Swelling Last Admin: 11/28/17 09:34 Dose: 1 ea Folic Acid (Folic Acid) 1 mg IVP DAILY [facility] Last Admin: 11/29/17 09:43 Dose: 1 mg Heparin Sodium (Porcine) (Heparin) 5,000 units SC Q12 SHIV PRN Reason: Protocol Last Admin: 11/29/17 09:26 Dose: 5,000 units Propofol (Diprivan) 1,000 mg in 100 mls @ 2.177 mls/hr IV .Q24H PRN; Protocol; 5 MCG/KG/MIN PRN Reason: TITRATE PER MD ORDER Last Admin: 11/29/17 07:32 Dose: 40 mcg/kg/min, 17.418 mls/hr Dexmedetomidine HCl (Precedex 4 Mcg/Ml (100 Ml)) 400 mcg in 100 mls @ 3.629 mls /hr IV .Q24H PRN; Protocol; 0.2 MCG/KG/HR PRN Reason: Agitation Last Titration: 11/29/17 00:58 Dose: 1.5 mcg/kg/hr, 27.216 mls/hr Insulin Human Lispro (Humalog Low) 0 units SC Q6H SHIV PRN Reason: Protocol Last Admin: 11/29/17 03:30 Dose: Not Given Levalbuterol HCl (Xopenex) 0.63 mg IH TIDRESP PRN PRN Reason: Shortness of Breath Levalbuterol HCl (Xopenex) 0.63 mg IH [id number] [facility] Last Admin: 11/29/17 07:41 Dose: 0.63 mg Lorazepam (Ativan) 4 mg IVP Q4H PRN PRN Reason: Agitation Last Admin: 11/29/17 05:13 Dose: 4 mg Lorazepam (Ativan) 2 mg IVP TID [facility] PRN Reason: Protocol Last Admin: 11/28/17 17:14 Dose: 2 mg Multivitamins/Minerals (Therapeutic-M Tab) 1 tab PO 0800 [facility] Last Admin: 11/29/17 09:27 Dose: 1 tab Pantoprazole Sodium (Protonix Inj) 40 mg IVP DAILY [facility] Last Admin: 11/29/17 09:27 Dose: 40 mg Thiamine HCl (Vitamin B1 Tab) 100 mg PO TID [facility] Last Admin: 11/29/17 09:27 Dose: 100 mg Zinc Sulfate (Zinc Sulfate 220 Mg Cap) 220 mg PO DAILY [facility] Last Admin: 11/29/17 09:28 Dose: 220 mg - Labs Labs: 11/29/17 05:00 11/29/17 05:00 PT 14.5 SECONDS (9.4-12.5) H 11/24/17 09:50 INR 1.26 (0.93-1.08) H 11/24/17 09:50 Assessment and Plan - Assessment and Plan (Free Text) Plan: Patient seen and examined on rounds with resident, agree with note with following additions/exceptions: 62yo male with PMHx of heavy EtOH abuse a/w EtOH withdrawal, DTs, intubated, coming off sedation. Patient with agitation, confusion, once off sedation. On Preecdex drip, propofol weaning off. Delirium Tremens Alcohol Withdrawal Dehydration AMS Rhabdo Recommend: - cont with ventilatory support, daily sedation vacation, daily cpap trials - monitor off antibiotics, procal negative, cultures negative thus far - IVF hydration - Thiamine, Folic, MVT - Precedex drip - follow up Psych - neurology consult, EEG - Feeds - GI ppx - DVT ppx - Monitor in MICU crtical care time 35 minutes
[2017-11-29] MEDS: Dexmedetomidine 400mcg/100mL 400 MCG/100 ML BOTTLE IV PRN ×4 (10:50→22:00)
--- NOTE | 2017-11-29 15:53 | CP.PCM.PN ---
<Kurt Lambert - Last Filed: 11/29/17 15:49> Subjective - Date & Time of Evaluation Date of Evaluation: 11/29/17 Time of Evaluation: 12:00 - Subjective Subjective: Dr. Chaparro Service Patient seen and examined at bedside. There were no acute events as per nursing staff. Patient is intubated and sedated. ROS could not be obtained. Objective - Vital Signs/Intake and Output Vital Signs (last 24 hours): Temp Pulse Resp BP Pulse Ox 99.5 F 105 H 31 H 188/105 H 98 11/28/17 20:00 11/29/17 15:31 11/28/17 07:56 11/29/17 15:31 11/29/17 15:00 Intake and Output: 11/29/17 11/29/17 06:59 18:59 Intake Total 1961 240 Output Total 525 Balance 1436 240 - Medications Medications: Current Medications Ascorbic Acid (Vitamin C 500 Mg Tab) 500 mg PO DAILY [facility] Last Admin: 11/29/17 09:27 Dose: 500 mg Bacitracin (Bacitracin) 1 ea TOP Q6 PRN PRN Reason: Swelling Last Admin: 11/28/17 09:34 Dose: 1 ea Folic Acid (Folic Acid) 1 mg IVP DAILY [facility] Last Admin: 11/29/17 09:43 Dose: 1 mg Heparin Sodium (Porcine) (Heparin) 5,000 units SC Q12 SHIV PRN Reason: Protocol Last Admin: 11/29/17 09:26 Dose: 5,000 units Hydralazine HCl (Apresoline) 10 mg IVP Q6 PRN PRN Reason: give if SBP >160 Last Admin: 11/29/17 15:31 Dose: 10 mg Propofol (Diprivan) 1,000 mg in 100 mls @ 2.177 mls/hr IV .Q24H PRN; Protocol; 5 MCG/KG/MIN PRN Reason: TITRATE PER MD ORDER Last Admin: 11/29/17 07:32 Dose: 40 mcg/kg/min, 17.418 mls/hr Dexmedetomidine HCl (Precedex 4 Mcg/Ml (100 Ml)) 400 mcg in 100 mls @ 3.629 mls /hr IV .Q24H PRN; Protocol; 0.2 MCG/KG/HR PRN Reason: Agitation Last Admin: 11/29/17 14:32 Dose: 1.5 mcg/kg/hr, 27.216 mls/hr Insulin Human Lispro (Humalog Low) 0 units SC Q6H SHIV PRN Reason: Protocol Last Admin: 11/29/17 09:00 Dose: Not Given Levalbuterol HCl (Xopenex) 0.63 mg IH TIDRESP PRN PRN Reason: Shortness of Breath Levalbuterol HCl (Xopenex) 0.63 mg IH [id number] SHIV Last Admin: 11/29/17 13:14 Dose: 0.63 mg Lorazepam (Ativan) 4 mg IVP Q4H PRN PRN Reason: Agitation Last Admin: 11/29/17 05:13 Dose: 4 mg Lorazepam (Ativan) 2 mg IVP TID SHIV PRN Reason: Protocol Last Admin: 11/29/17 10:00 Dose: Not Given Multivitamins/Minerals (Therapeutic-M Tab) 1 tab PO 0800 [facility] Last Admin: 11/29/17 09:27 Dose: 1 tab Pantoprazole Sodium (Protonix Inj) 40 mg IVP DAILY [facility] Last Admin: 11/29/17 09:27 Dose: 40 mg Thiamine HCl (Vitamin B1 Tab) 100 mg PO TID [facility] Last Admin: 11/29/17 14:29 Dose: 100 mg Zinc Sulfate (Zinc Sulfate 220 Mg Cap) 220 mg PO DAILY [facility] Last Admin: 11/29/17 09:28 Dose: 220 mg - Labs Labs: 11/29/17 05:00 11/29/17 05:00 PT 14.5 SECONDS (9.4-12.5) H 11/24/17 09:50 INR 1.26 (0.93-1.08) H 11/24/17 09:50 - Constitutional Appears: Chronically Ill - Head Exam Head Exam: ATRAUMATIC, NORMAL INSPECTION, NORMOCEPHALIC - Eye Exam Eye Exam: EOMI, Normal appearance, PERRL Pupil Exam: NORMAL ACCOMODATION, PERRL - ENT Exam ENT Exam: Mucous Membranes Moist, Normal Exam - Respiratory Exam Respiratory Exam: Clear to Ausculation Bilateral, NORMAL BREATHING PATTERN - Cardiovascular Exam Cardiovascular Exam: REGULAR RHYTHM, +S1, +S2. absent: Murmur - GI/Abdominal Exam GI & Abdominal Exam: Soft, Normal Bowel Sounds. absent: Tenderness - Extremities Exam Extremities Exam: Normal Capillary Refill, Normal Inspection. absent: Joint Swelling, Pedal Edema - Neurological Exam Neurological Exam: Altered - Skin Skin Exam: Dry, Intact, Normal Color, Warm Assessment and Plan - Assessment and Plan (Free Text) Assessment: 62yo M with PMHx of Bipolar disorder and ETOH abuse in ICU for DTs. Patient initially admitted to psych for suicidal ideation then transferred to in- patient due to severe ETOH withdrawal with DTs requiring high-dose sedation and intubation. EEG planned for Friday 1. ETOH withdrawal with Delirium Tremens - Intubated and sedated on Propofol and Precedex- will wean as tolerated - Neuro consulted- recs appreciated- recommend EEG on Friday - Continue CIWA protocol, seizure precaution, aspiration precaution - Ativan prn and scheduled, keppra added to regimen - Head CT negative for acute pathology 2. Altered Mental Status, currently being sedated for DT's - CT head was unremarkable - thiamine increased to protect against encephalopathy - neuro consulted, Dr. Rosenberg, appreciate recs 3. Blisters on hands (not affecting IV lines) - Multivitamin, vit C and Zinc added - Bacitracin ointment to be applied 4. Possible Rhabdomyolysis, improving with sedation - likely secondary to DT's - Total CK trending down - renal function has not been affected - Continue IVF for hydration - will monitor 5. Fever of unknown origin - Likely secondary to ETOH withdrawals - CXR showing trace right bibasilar pleural effusion - Blood and stool Cxs show no growth - No Leukocytosis, afebrile. Abx discontinued per ID - ID following, appreciate recs - [id number], no leukocytosis - No sign of infection at this time 6. Electrolyte imbalance - monitor and replete as needed - Rhabdomyolysis- resolved 7. Suicidal Ideation - 1:1 observation when patient comes off sedation - Psych following, will follow up with patient once more stable 8. PPx - SCDs - Aspiration precautions - Seizure precautions - Heparin SC - Protonix Patient was seen, examined and discussed with attending, Dr. Chaparro <Charlotte Chaparro - Last Filed: 11/30/17 12:05> Objective - Vital Signs/Intake and Output Vital Signs (last 24 hours): Temp Pulse Resp BP Pulse Ox 99.5 F 104 H 28 H 188/110 H 100 11/28/17 20:00 11/30/17 08:42 11/30/17 07:28 11/30/17 08:42 11/30/17 07:28 Intake and Output: 11/30/17 11/30/17 06:59 18:59 Intake Total 864 100 Output Total 700 Balance 164 100 - Medications Medications: Current Medications Ascorbic Acid (Vitamin C 500 Mg Tab) 500 mg PO DAILY [facility] Last Admin: 11/30/17 10:31 Dose: 500 mg Bacitracin (Bacitracin) 1 ea TOP Q6 PRN PRN Reason: Swelling Last Admin: 11/28/17 09:34 Dose: 1 ea Folic Acid (Folic Acid) 1 mg IVP DAILY [facility] Last Admin: 11/29/17 09:43 Dose: 1 mg Heparin Sodium (Porcine) (Heparin) 5,000 units SC Q12 SHIV PRN Reason: Protocol Last Admin: 11/30/17 10:30 Dose: 5,000 units Hydralazine HCl (Apresoline) 10 mg IVP Q6 PRN PRN Reason: give if SBP >160 Last Admin: 11/30/17 08:42 Dose: 10 mg Propofol (Diprivan) 1,000 mg in 100 mls @ 2.177 mls/hr IV .Q24H PRN; Protocol; 5 MCG/KG/MIN PRN Reason: TITRATE PER MD ORDER Last Admin: 11/30/17 09:42 Dose: 40 mcg/kg/min, 17.418 mls/hr Dexmedetomidine HCl (Precedex 4 Mcg/Ml (100 Ml)) 400 mcg in 100 mls @ 3.629 mls /hr IV .Q24H PRN; Protocol; 0.2 MCG/KG/HR PRN Reason: Agitation Last Admin: 11/30/17 09:47 Dose: 1 mcg/kg/hr, 18.144 mls/hr Insulin Human Lispro (Humalog Low) 0 units SC Q6H SHIV PRN Reason: Protocol Last Admin: 11/30/17 09:00 Dose: Not Given Levalbuterol HCl (Xopenex) 0.63 mg IH TIDRESP PRN PRN Reason: Shortness of Breath Levalbuterol HCl (Xopenex) 0.63 mg IH [id number] SHIV Last Admin: 11/30/17 07:28 Dose: 0.63 mg Lorazepam (Ativan) 4 mg IVP Q4H PRN PRN Reason: Agitation Last Admin: 11/30/17 02:30 Dose: 4 mg Lorazepam (Ativan) 2 mg IVP TID [facility] PRN Reason: Protocol Last Admin: 11/30/17 09:16 Dose: 2 mg Multivitamins/Minerals (Therapeutic-M Tab) 1 tab PO 0800 [facility] Last Admin: 11/30/17 10:31 Dose: 1 tab Pantoprazole Sodium (Protonix Inj) 40 mg IVP DAILY [facility] Last Admin: 11/30/17 10:31 Dose: 40 mg Thiamine HCl (Vitamin B1 Tab) 100 mg PO TID [facility] Last Admin: 11/30/17 10:31 Dose: 100 mg Zinc Sulfate (Zinc Sulfate 220 Mg Cap) 220 mg PO DAILY [facility] Last Admin: 11/30/17 10:31 Dose: 220 mg - Labs Labs: 11/30/17 05:00 11/30/17 05:00 PT 14.5 SECONDS (9.4-12.5) H 11/24/17 09:50 INR 1.26 (0.93-1.08) H 11/24/17 09:50 Attending/Attestation - Attestation I have personally seen and examined this patient.: Yes I have fully participated in the care of the patient.: Yes I have reviewed all pertinent clinical information, including history, physical exam and plan: Yes Notes (Text): 11/30/17 12:03 Attending note; Patient seen and examined with resident in ICU. Patient is currently intubated and sedated. Patient is a 62 year old male with history of bipolar disorder and alcohol abuse who was transferred from psych unit for management of alcohol withdrawal. Patient is intubated for delirium tremens. Weaning trial. Fever; resolved.secondary to alcohol withdrawal. blood culture is negative. C. difficile negative. MRSA negative. Pro-calcitonin is negative. Anti-biotics discontinued. Repeat chest x-ray Is negative. ID evaluation appreciated. Elevated LFTs; secondary to alcohol abuse. Trending down. started on tube feeding. Mild rhabdomyolysis; resolved.Continue IV fluids. Monitor in ICU closely.
--- NOTE | 2017-11-29 17:50 | CP.PCM.PN ---
Subjective - Date & Time of Evaluation Date of Evaluation: 11/29/17 Time of Evaluation: 16:00 - Subjective Subjective: Infectious Disease Follow Up: November 29, 2017 62 yo male with medical history that includes Bipolar disorder and alcohol abuse presented with EtOH intoxication and now in withdrawals. Originally in the psych floor for bipolar disease treatment and suicidal ideation on 11/21/2017. The patient required intubation. ID called for possible aspiration pneumonia. No fevers, leukocytosis at this time. Remains intubated. Still no fevers or leukocytosis. Remains sedated. Noted blistered skin on right hand that slightly improved. No new issues. Difficult extubation. Objective - Vital Signs/Intake and Output Vital Signs (last 24 hours): Temp Pulse Resp BP Pulse Ox 99.5 F 107 H 31 H 131/98 H 89 L 11/28/17 20:00 11/29/17 17:00 11/28/17 07:56 11/29/17 17:00 11/29/17 17:00 Intake and Output: 11/29/17 11/29/17 06:59 18:59 Intake Total 1961 240 Output Total 525 Balance 1436 240 - Medications Medications: Current Medications Ascorbic Acid (Vitamin C 500 Mg Tab) 500 mg PO DAILY [facility] Last Admin: 11/29/17 09:27 Dose: 500 mg Bacitracin (Bacitracin) 1 ea TOP Q6 PRN PRN Reason: Swelling Last Admin: 11/28/17 09:34 Dose: 1 ea Folic Acid (Folic Acid) 1 mg IVP DAILY [facility] Last Admin: 11/29/17 09:43 Dose: 1 mg Heparin Sodium (Porcine) (Heparin) 5,000 units SC Q12 SHIV PRN Reason: Protocol Last Admin: 11/29/17 09:26 Dose: 5,000 units Hydralazine HCl (Apresoline) 10 mg IVP Q6 PRN PRN Reason: give if SBP >160 Last Admin: 11/29/17 15:31 Dose: 10 mg Propofol (Diprivan) 1,000 mg in 100 mls @ 2.177 mls/hr IV .Q24H PRN; Protocol; 5 MCG/KG/MIN PRN Reason: TITRATE PER MD ORDER Last Admin: 11/29/17 07:32 Dose: 40 mcg/kg/min, 17.418 mls/hr Dexmedetomidine HCl (Precedex 4 Mcg/Ml (100 Ml)) 400 mcg in 100 mls @ 3.629 mls /hr IV .Q24H PRN; Protocol; 0.2 MCG/KG/HR PRN Reason: Agitation Last Admin: 11/29/17 14:32 Dose: 1.5 mcg/kg/hr, 27.216 mls/hr Insulin Human Lispro (Humalog Low) 0 units SC Q6H SHIV PRN Reason: Protocol Last Admin: 11/29/17 09:00 Dose: Not Given Levalbuterol HCl (Xopenex) 0.63 mg IH TIDRESP PRN PRN Reason: Shortness of Breath Levalbuterol HCl (Xopenex) 0.63 mg IH [id number] [facility] Last Admin: 11/29/17 13:14 Dose: 0.63 mg Lorazepam (Ativan) 4 mg IVP Q4H PRN PRN Reason: Agitation Last Admin: 11/29/17 05:13 Dose: 4 mg Lorazepam (Ativan) 2 mg IVP TID [facility] PRN Reason: Protocol Last Admin: 11/29/17 15:58 Dose: 2 mg Multivitamins/Minerals (Therapeutic-M Tab) 1 tab PO 0800 [facility] Last Admin: 11/29/17 09:27 Dose: 1 tab Pantoprazole Sodium (Protonix Inj) 40 mg IVP DAILY [facility] Last Admin: 11/29/17 09:27 Dose: 40 mg Thiamine HCl (Vitamin B1 Tab) 100 mg PO TID [facility] Last Admin: 11/29/17 14:29 Dose: 100 mg Zinc Sulfate (Zinc Sulfate 220 Mg Cap) 220 mg PO DAILY [facility] Last Admin: 11/29/17 09:28 Dose: 220 mg - Labs Labs: 11/29/17 05:00 11/29/17 05:00 PT 14.5 SECONDS (9.4-12.5) H 11/24/17 09:50 INR 1.26 (0.93-1.08) H 11/24/17 09:50 - Constitutional Appears: Non-toxic, No Acute Distress, Chronically Ill - Head Exam Additional comments: intubated and ventilated - Eye Exam Eye Exam: EOMI, PERRL Pupil Exam: NORMAL ACCOMODATION, PERRL - ENT Exam ENT Exam: Mucous Membranes Moist, Normal External Ear Exam, TM's Normal Bilaterally - Neck Exam Neck Exam: Full ROM, Normal Inspection - Respiratory Exam Respiratory Exam: Clear to Ausculation Bilateral, NORMAL BREATHING PATTERN. absent: Rales, Rhonchi, Wheezes - Cardiovascular Exam Cardiovascular Exam: REGULAR RHYTHM, RRR, +S1, +S2 - GI/Abdominal Exam GI & Abdominal Exam: Soft, Normal Bowel Sounds. absent: Distended, Tenderness - Extremities Exam Extremities Exam: Full ROM, Normal Inspection - Neurological Exam Additional comments: Intubated and Ventilated. - Psychiatric Exam Psychiatric exam: Normal Affect, Normal Mood - Skin Skin Exam: Intact, Normal Color Assessment and Plan - Assessment and Plan (Free Text) Assessment: 62 yo male with EtOH abuse. Developed EtOH withdrawal and now required intubation and ventilation. The patient was being evaluated by ID for potential aspiration. The patient is currently on Cefepime and Vancomycin. If aspiration is a significant concern, would either add Flagyl IV or switch Cefepime to Meropenem or Zosyn. Febrile several days ago up to 102 F. Afebrile the last few days. No leukocytosis. No findings on Chest X-ray. Supportive care. Procalcitonin is 0.14 which is low. Noted procalcitonin repeated. More likely secondary to the EtOH withdrawal and Delirium Tremens. Case discussed with team. Off antibiotics now. From ID point of view, no obvious infection sources at this time. Patient appears to be more awake and alert. Will Monitor. Difficult extubation/wean from ventilation. Supportive care. Thank you for allowing me to participate in the care of the patient, we will follow with you.
[2017-11-30] MEDS: Dexmedetomidine 400mcg/100mL 400 MCG/100 ML BOTTLE IV PRN ×4 (01:30→21:56)
[2017-11-30] MEDS: Levalbuterol 0.63 MG/3 ML Inhal Soln UD IH SCH ×4 (01:42→19:22)
[2017-11-30] MEDS: Insulin Lispro (humaLOG) LOW Coverage SC SCH ×4 (03:00→21:48)
[2017-11-30 05:00] LABS: ARTERIAL BLOOD GAS HEMOGLOBIN 12.4 g/dL (11.7-17.4); ARTERIAL BLOOD GAS O2 CAPACITY 17.1 mL/dl (16-24); ARTERIAL BLOOD GAS O2 CONTENT 17.1 ML/dl (15-23); ARTERIAL BLOOD GAS O2 SAT 99.8 % (95-98); ARTERIAL BLOOD GAS PCO2 38 mm/Hg (35-45); ARTERIAL BLOOD GAS PH 7.46 (7.35-7.45); ARTERIAL BLOOD GAS TCO2 28.2 mmol.L (22-28)
[2017-11-30 05:47] LABS: BASO # 0.02 K/mm3 (0.0-2.0); BASO % 0.2 % (0.0-3.0); EOS # 0.1 (0.0-0.7); GRAN # 6.66 (1.4-6.5); GRAN % 81.8 % (50.0-68.0); HEMOGLOBIN 12.9 g/dL (14.0-18.0); LYMPH # 0.8 (1.2-3.4); LYMPH % 9.4 % (22.0-35.0); MEAN CELL VOLUME 90.9 fl (80.0-105.0); MEAN CORPUSCULAR HEMOGLOBIN 30.2 pg (25.0-35.0); MEAN CORPUSCULAR HGB CONC 33.2 g/dl (31.0-37.0); MEAN PLATELET VOLUME 9.9 fl (7.0-11.0); MONO # 0.6 (0.1-0.6); MONO % 7.6 % (1.0-6.0); RBC 4.27 10^6/uL (3.5-6.1); RED CELL DISTRIBUTION WIDTH 13.9 % (11.5-14.5); WHITE BLOOD COUNT 8.2 10^3/ul (4.5-11.0)
[2017-11-30 06:09] LABS: ALB/GLOB RATIO 1.4 (1.1-1.8); ALBUMIN 3.7 g/dL (3.0-4.8); ALT/SGPT 81 U/L (7-56); AST/SGOT 63 U/L (17-59); BLOOD UREA NITROGEN 15 mg/dL (7-21); CALCIUM 9.6 mg/dL (8.4-10.5); GFR AFRICAN-AMERICAN > 60; GFR NON-AFRICAN AMERICAN > 60; MAGNESIUM 2.1 mg/dL (1.7-2.2)
[2017-11-30] MEDS: Propofol 10 mg/ml 1,000 MG/100 ML VIAL IV PRN (09:42)
--- NOTE | 2017-11-30 10:29 | CP.PCM.PN ---
Subjective - Date & Time of Evaluation Date of Evaluation: 11/30/17 Time of Evaluation: 08:00 - Subjective Subjective: Pt seen and examined, continues to be severely agitated once Propofol is turned off Objective - Vital Signs/Intake and Output Vital Signs (last 24 hours): Temp Pulse Resp BP Pulse Ox 99.5 F 104 H 28 H 188/110 H 100 11/28/17 20:00 11/30/17 08:42 11/30/17 07:28 11/30/17 08:42 11/30/17 07:28 Intake and Output: 11/30/17 11/30/17 06:59 18:59 Intake Total 864 100 Output Total 700 Balance 164 100 - Medications Medications: Current Medications Ascorbic Acid (Vitamin C 500 Mg Tab) 500 mg PO DAILY [facility] Last Admin: 11/29/17 09:27 Dose: 500 mg Bacitracin (Bacitracin) 1 ea TOP Q6 PRN PRN Reason: Swelling Last Admin: 11/28/17 09:34 Dose: 1 ea Folic Acid (Folic Acid) 1 mg IVP DAILY [facility] Last Admin: 11/29/17 09:43 Dose: 1 mg Heparin Sodium (Porcine) (Heparin) 5,000 units SC Q12 SHIV PRN Reason: Protocol Last Admin: 11/29/17 22:05 Dose: 5,000 units Hydralazine HCl (Apresoline) 10 mg IVP Q6 PRN PRN Reason: give if SBP >160 Last Admin: 11/30/17 08:42 Dose: 10 mg Propofol (Diprivan) 1,000 mg in 100 mls @ 2.177 mls/hr IV .Q24H PRN; Protocol; 5 MCG/KG/MIN PRN Reason: TITRATE PER MD ORDER Last Admin: 11/30/17 09:42 Dose: 40 mcg/kg/min, 17.418 mls/hr Dexmedetomidine HCl (Precedex 4 Mcg/Ml (100 Ml)) 400 mcg in 100 mls @ 3.629 mls /hr IV .Q24H PRN; Protocol; 0.2 MCG/KG/HR PRN Reason: Agitation Last Admin: 11/30/17 09:47 Dose: 1 mcg/kg/hr, 18.144 mls/hr Insulin Human Lispro (Humalog Low) 0 units SC Q6H SHIV PRN Reason: Protocol Last Admin: 11/30/17 03:00 Dose: Not Given Levalbuterol HCl (Xopenex) 0.63 mg IH TIDRESP PRN PRN Reason: Shortness of Breath Levalbuterol HCl (Xopenex) 0.63 mg IH [id number] [facility] Last Admin: 11/30/17 07:28 Dose: 0.63 mg Lorazepam (Ativan) 4 mg IVP Q4H PRN PRN Reason: Agitation Last Admin: 11/30/17 02:30 Dose: 4 mg Lorazepam (Ativan) 2 mg IVP TID [facility] PRN Reason: Protocol Last Admin: 11/30/17 09:16 Dose: 2 mg Multivitamins/Minerals (Therapeutic-M Tab) 1 tab PO 0800 [facility] Last Admin: 11/29/17 09:27 Dose: 1 tab Pantoprazole Sodium (Protonix Inj) 40 mg IVP DAILY [facility] Last Admin: 11/29/17 09:27 Dose: 40 mg Thiamine HCl (Vitamin B1 Tab) 100 mg PO TID [facility] Last Admin: 11/29/17 18:47 Dose: 100 mg Zinc Sulfate (Zinc Sulfate 220 Mg Cap) 220 mg PO DAILY [facility] Last Admin: 11/29/17 09:28 Dose: 220 mg - Labs Labs: 11/30/17 05:00 11/30/17 05:00 PT 14.5 SECONDS (9.4-12.5) H 11/24/17 09:50 INR 1.26 (0.93-1.08) H 11/24/17 09:50 - Constitutional Appears: Agitated - Eye Exam Eye Exam: Normal appearance - ENT Exam ENT Exam: Mucous Membranes Moist - Respiratory Exam Respiratory Exam: Clear to Ausculation Bilateral, NORMAL BREATHING PATTERN - Cardiovascular Exam Cardiovascular Exam: REGULAR RHYTHM, +S1, +S2 - GI/Abdominal Exam GI & Abdominal Exam: Soft, Normal Bowel Sounds - Extremities Exam Extremities Exam: Normal Capillary Refill - Psychiatric Exam Psychiatric exam: Agitated Assessment and Plan - Assessment and Plan (Free Text) Assessment: 62yo male with PMHx of heavy EtOH abuse a/w EtOH withdrawal, DTs, intubated, coming off sedation. Patient with agitation, confusion, once off sedation. On Precedex drip, propofol off. CT head negative. Delirium Tremens Alcohol Withdrawal Dehydration AMS Rhabdo Recommend: - cont with ventilatory support, daily sedation vacation, daily cpap trials - monitor off antibiotics, procal negative, cultures negative thus far - IVF hydration - Thiamine, Folic, MVT - Precedex drip - follow up Psych - neurology consult, EEG - Feeds - GI ppx - DVT ppx - Monitor in MICU
[2017-11-30] MEDS: Multivitamin With Minerals Tab PO SCH (10:31)
--- NOTE | 2017-11-30 12:01 | CP.PCM.PN ---
Subjective - Date & Time of Evaluation Date of Evaluation: 11/30/17 Time of Evaluation: 11:58 - Subjective Subjective: Mr Koch was seen and examined at the bedside in ICU. He remains on mechanical ventilator on PRVC mode. He remains on sedation drip of precedex and propofol. GCS- 4T.His pupils remains reactive to light but sluggish, positive gag and corneal reflexes.He has episodes of restlessness with bilateral wrist restraint for patient safety. There was no untoward events overnight. Objective - Vital Signs/Intake and Output Vital Signs (last 24 hours): Temp Pulse Resp BP Pulse Ox 99.5 F 104 H 28 H 188/110 H 100 11/28/17 20:00 11/30/17 08:42 11/30/17 07:28 11/30/17 08:42 11/30/17 07:28 Intake and Output: 11/30/17 11/30/17 06:59 18:59 Intake Total 864 100 Output Total 700 Balance 164 100 - Medications Medications: Current Medications Ascorbic Acid (Vitamin C 500 Mg Tab) 500 mg PO DAILY [facility] Last Admin: 11/30/17 10:31 Dose: 500 mg Bacitracin (Bacitracin) 1 ea TOP Q6 PRN PRN Reason: Swelling Last Admin: 11/28/17 09:34 Dose: 1 ea Folic Acid (Folic Acid) 1 mg IVP DAILY [facility] Last Admin: 11/29/17 09:43 Dose: 1 mg Heparin Sodium (Porcine) (Heparin) 5,000 units SC Q12 SHIV PRN Reason: Protocol Last Admin: 11/30/17 10:30 Dose: 5,000 units Hydralazine HCl (Apresoline) 10 mg IVP Q6 PRN PRN Reason: give if SBP >160 Last Admin: 11/30/17 08:42 Dose: 10 mg Propofol (Diprivan) 1,000 mg in 100 mls @ 2.177 mls/hr IV .Q24H PRN; Protocol; 5 MCG/KG/MIN PRN Reason: TITRATE PER MD ORDER Last Admin: 11/30/17 09:42 Dose: 40 mcg/kg/min, 17.418 mls/hr Dexmedetomidine HCl (Precedex 4 Mcg/Ml (100 Ml)) 400 mcg in 100 mls @ 3.629 mls /hr IV .Q24H PRN; Protocol; 0.2 MCG/KG/HR PRN Reason: Agitation Last Admin: 11/30/17 09:47 Dose: 1 mcg/kg/hr, 18.144 mls/hr Insulin Human Lispro (Humalog Low) 0 units SC Q6H SHIV PRN Reason: Protocol Last Admin: 11/30/17 09:00 Dose: Not Given Levalbuterol HCl (Xopenex) 0.63 mg IH TIDRESP PRN PRN Reason: Shortness of Breath Levalbuterol HCl (Xopenex) 0.63 mg IH [id number] [facility] Last Admin: 11/30/17 07:28 Dose: 0.63 mg Lorazepam (Ativan) 4 mg IVP Q4H PRN PRN Reason: Agitation Last Admin: 11/30/17 02:30 Dose: 4 mg Lorazepam (Ativan) 2 mg IVP TID SHIV PRN Reason: Protocol Last Admin: 11/30/17 09:16 Dose: 2 mg Multivitamins/Minerals (Therapeutic-M Tab) 1 tab PO 0800 [facility] Last Admin: 11/30/17 10:31 Dose: 1 tab Pantoprazole Sodium (Protonix Inj) 40 mg IVP DAILY [facility] Last Admin: 11/30/17 10:31 Dose: 40 mg Thiamine HCl (Vitamin B1 Tab) 100 mg PO TID [facility] Last Admin: 11/30/17 10:31 Dose: 100 mg Zinc Sulfate (Zinc Sulfate 220 Mg Cap) 220 mg PO DAILY [facility] Last Admin: 11/30/17 10:31 Dose: 220 mg - Labs Labs: 11/30/17 05:00 11/30/17 05:00 PT 14.5 SECONDS (9.4-12.5) H 11/24/17 09:50 INR 1.26 (0.93-1.08) H 11/24/17 09:50 - Constitutional Appears: No Acute Distress - Head Exam Head Exam: NORMAL INSPECTION - Neurological Exam Neuro motor strength exam: Left Upper Extremity: 2/1, Right Upper Extremity: 2/1 , Left Lower Extremity: 2/1, Right Lower Extremity: 2/1 Additional comments: GCS- 4T with episode of restlessness and agitation Assessment and Plan (1) Altered mental status, unspecified Assessment & Plan: Case discussed with Dr. Rosenberg, continue all current medical regimen. EEG results pending. Status: Acute
--- NOTE | 2017-11-30 14:51 | CP.PCM.PN ---
<Kurt Lambert - Last Filed: 11/30/17 14:49> Subjective - Date & Time of Evaluation Date of Evaluation: 11/30/17 Time of Evaluation: 12:00 - Subjective Subjective: Dr. Chaparro Service Patient seen and examined at bedside. There were no acute events as per nursing staff. Patient is intubated and sedated, does not tolerate weaning as he becomes severely agitated. ROS could not be obtained. Objective - Vital Signs/Intake and Output Vital Signs (last 24 hours): Temp Pulse Resp BP Pulse Ox 99.5 F 104 H 28 H 188/110 H 100 11/28/17 20:00 11/30/17 08:42 11/30/17 07:28 11/30/17 08:42 11/30/17 07:28 Intake and Output: 11/30/17 11/30/17 06:59 18:59 Intake Total 864 100 Output Total 700 Balance 164 100 - Medications Medications: Current Medications Ascorbic Acid (Vitamin C 500 Mg Tab) 500 mg PO DAILY [facility] Last Admin: 11/30/17 10:31 Dose: 500 mg Bacitracin (Bacitracin) 1 ea TOP Q6 PRN PRN Reason: Swelling Last Admin: 11/28/17 09:34 Dose: 1 ea Folic Acid (Folic Acid) 1 mg IVP DAILY [facility] Last Admin: 11/30/17 14:28 Dose: 1 mg Heparin Sodium (Porcine) (Heparin) 5,000 units SC Q12 SHIV PRN Reason: Protocol Last Admin: 11/30/17 10:30 Dose: 5,000 units Hydralazine HCl (Apresoline) 10 mg IVP Q6 PRN PRN Reason: give if SBP >160 Last Admin: 11/30/17 08:42 Dose: 10 mg Propofol (Diprivan) 1,000 mg in 100 mls @ 2.177 mls/hr IV .Q24H PRN; Protocol; 5 MCG/KG/MIN PRN Reason: TITRATE PER MD ORDER Last Admin: 11/30/17 09:42 Dose: 40 mcg/kg/min, 17.418 mls/hr Dexmedetomidine HCl (Precedex 4 Mcg/Ml (100 Ml)) 400 mcg in 100 mls @ 3.629 mls /hr IV .Q24H PRN; Protocol; 0.2 MCG/KG/HR PRN Reason: Agitation Last Admin: 11/30/17 09:47 Dose: 1 mcg/kg/hr, 18.144 mls/hr Insulin Human Lispro (Humalog Low) 0 units SC Q6H SHIV PRN Reason: Protocol Last Admin: 11/30/17 09:00 Dose: Not Given Levalbuterol HCl (Xopenex) 0.63 mg IH TIDRESP PRN PRN Reason: Shortness of Breath Levalbuterol HCl (Xopenex) 0.63 mg IH [id number] [facility] Last Admin: 11/30/17 13:34 Dose: 0.63 mg Lorazepam (Ativan) 4 mg IVP Q4H PRN PRN Reason: Agitation Last Admin: 11/30/17 02:30 Dose: 4 mg Lorazepam (Ativan) 2 mg IVP TID SHIV PRN Reason: Protocol Last Admin: 11/30/17 14:30 Dose: 2 mg Multivitamins/Minerals (Therapeutic-M Tab) 1 tab PO 0800 [facility] Last Admin: 11/30/17 10:31 Dose: 1 tab Pantoprazole Sodium (Protonix Inj) 40 mg IVP DAILY [facility] Last Admin: 11/30/17 10:31 Dose: 40 mg Thiamine HCl (Vitamin B1 Tab) 100 mg PO TID [facility] Last Admin: 11/30/17 14:29 Dose: 100 mg Zinc Sulfate (Zinc Sulfate 220 Mg Cap) 220 mg PO DAILY [facility] Last Admin: 11/30/17 10:31 Dose: 220 mg - Labs Labs: 11/30/17 05:00 11/30/17 05:00 PT 14.5 SECONDS (9.4-12.5) H 11/24/17 09:50 INR 1.26 (0.93-1.08) H 11/24/17 09:50 - Constitutional Appears: Chronically Ill - Head Exam Head Exam: ATRAUMATIC, NORMAL INSPECTION, NORMOCEPHALIC - Eye Exam Eye Exam: EOMI, Normal appearance, PERRL Pupil Exam: NORMAL ACCOMODATION, PERRL - ENT Exam ENT Exam: Mucous Membranes Moist, Normal Exam - Respiratory Exam Respiratory Exam: Decreased Breath Sounds, Rhonchi, NORMAL BREATHING PATTERN - Cardiovascular Exam Cardiovascular Exam: REGULAR RHYTHM, +S1, +S2. absent: Murmur - GI/Abdominal Exam GI & Abdominal Exam: Soft, Normal Bowel Sounds. absent: Tenderness - Neurological Exam Neurological Exam: Altered - Skin Skin Exam: Dry, Intact, Normal Color, Warm Assessment and Plan - Assessment and Plan (Free Text) Assessment: 62 M with PMHx of Bipolar disorder and ETOH abuse in ICU for DTs. Patient initially admitted to psych for suicidal ideation then transferred to in- patient due to severe ETOH withdrawal with DTs requiring high-dose sedation and intubation. EEG planned for Friday 1. ETOH withdrawal with Delirium Tremens - Intubated and sedated on Propofol and Precedex- will wean as tolerated - Neuro consulted- recs appreciated- recommend EEG on Friday - Continue CIWA protocol, seizure precaution, aspiration precaution - Ativan prn and scheduled, keppra added to regimen - Head CT negative for acute pathology 2. Altered Mental Status, currently being sedated for DT's - CT head was unremarkable - thiamine increased to protect against encephalopathy - neuro consulted, Dr. Rosenberg, appreciate recs 3. Blisters on hands (not affecting IV lines) - Multivitamin, vit C and Zinc added - Bacitracin ointment to be applied 4. Possible Rhabdomyolysis, improving with sedation - likely secondary to DT's - Total CK trending down - renal function has not been affected - Continue IVF for hydration - will monitor 5. Fever of unknown origin - Likely secondary to ETOH withdrawals - CXR showing trace right bibasilar pleural effusion - Blood and stool Cxs show no growth - No Leukocytosis, afebrile. Abx discontinued per ID - ID following, appreciate recs - [id number], no leukocytosis - No sign of infection at this time 6. Electrolyte imbalance - monitor and replete as needed - Rhabdomyolysis- resolved 7. PPx - SCDs - Aspiration precautions - Seizure precautions - Heparin SC - Protonix Patient was seen, examined and discussed with attending, Dr. Chaparro <Charlotte Chaparro - Last Filed: 11/30/17 15:17> Objective - Vital Signs/Intake and Output Vital Signs (last 24 hours): Temp Pulse Resp BP Pulse Ox 99.5 F 106 H 28 H 145/85 97 11/28/17 20:00 11/30/17 14:59 11/30/17 07:28 11/30/17 15:00 11/30/17 14:59 Intake and Output: 11/30/17 11/30/17 06:59 18:59 Intake Total 864 100 Output Total 700 Balance 164 100 - Medications Medications: Current Medications Ascorbic Acid (Vitamin C 500 Mg Tab) 500 mg PO DAILY [facility] Last Admin: 11/30/17 10:31 Dose: 500 mg Bacitracin (Bacitracin) 1 ea TOP Q6 PRN PRN Reason: Swelling Last Admin: 11/28/17 09:34 Dose: 1 ea Folic Acid (Folic Acid) 1 mg IVP DAILY [facility] Last Admin: 11/30/17 14:28 Dose: 1 mg Heparin Sodium (Porcine) (Heparin) 5,000 units SC Q12 SHIV PRN Reason: Protocol Last Admin: 11/30/17 10:30 Dose: 5,000 units Hydralazine HCl (Apresoline) 10 mg IVP Q6 PRN PRN Reason: give if SBP >160 Last Admin: 11/30/17 08:42 Dose: 10 mg Propofol (Diprivan) 1,000 mg in 100 mls @ 2.177 mls/hr IV .Q24H PRN; Protocol; 5 MCG/KG/MIN PRN Reason: TITRATE PER MD ORDER Last Admin: 11/30/17 09:42 Dose: 40 mcg/kg/min, 17.418 mls/hr Dexmedetomidine HCl (Precedex 4 Mcg/Ml (100 Ml)) 400 mcg in 100 mls @ 3.629 mls /hr IV .Q24H PRN; Protocol; 0.2 MCG/KG/HR PRN Reason: Agitation Last Admin: 11/30/17 09:47 Dose: 1 mcg/kg/hr, 18.144 mls/hr Insulin Human Lispro (Humalog Low) 0 units SC Q6H [facility] PRN Reason: Protocol Last Admin: 11/30/17 09:00 Dose: Not Given Levalbuterol HCl (Xopenex) 0.63 mg IH TIDRESP PRN PRN Reason: Shortness of Breath Levalbuterol HCl (Xopenex) 0.63 mg IH [id number] [facility] Last Admin: 11/30/17 13:34 Dose: 0.63 mg Lorazepam (Ativan) 4 mg IVP Q4H PRN PRN Reason: Agitation Last Admin: 11/30/17 02:30 Dose: 4 mg Lorazepam (Ativan) 2 mg IVP TID [facility] PRN Reason: Protocol Last Admin: 11/30/17 14:30 Dose: 2 mg Multivitamins/Minerals (Therapeutic-M Tab) 1 tab PO 0800 [facility] Last Admin: 11/30/17 10:31 Dose: 1 tab Pantoprazole Sodium (Protonix Inj) 40 mg IVP DAILY [facility] Last Admin: 11/30/17 10:31 Dose: 40 mg Thiamine HCl (Vitamin B1 Tab) 100 mg PO TID [facility] Last Admin: 11/30/17 14:29 Dose: 100 mg Zinc Sulfate (Zinc Sulfate 220 Mg Cap) 220 mg PO DAILY [facility] Last Admin: 11/30/17 10:31 Dose: 220 mg - Labs Labs: 11/30/17 05:00 11/30/17 05:00 PT 14.5 SECONDS (9.4-12.5) H 11/24/17 09:50 INR 1.26 (0.93-1.08) H 11/24/17 09:50 Attending/Attestation - Attestation I have personally seen and examined this patient.: Yes I have fully participated in the care of the patient.: Yes I have reviewed all pertinent clinical information, including history, physical exam and plan: Yes Notes (Text): 11/30/17 15:15 Attending note; Patient seen and examined with resident in ICU. Patient is currently intubated and sedated. patient gets agitated and restless upon discontinuing sedation. Monitor closely. Patient is a 62 year old male with history of bipolar disorder and alcohol abuse who was transferred from psych unit for management of alcohol withdrawal. Patient is intubated for delirium tremens. Weaning trial per ICU team. CT head was negative. continue Ativan. neurology Evaluation appreciated. EEG ordered. Fever; resolved.secondary to alcohol withdrawal. blood culture is negative. C. difficile negative. MRSA negative. Pro-calcitonin is negative. Anti-biotics discontinued. Repeat chest x-ray Is negative. ID evaluation appreciated. Elevated LFTs; secondary to alcohol abuse. Trending down. started on tube feeding. Mild rhabdomyolysis; resolved.Continue IV fluids. Monitor in ICU closely.
--- NOTE | 2017-11-30 19:22 | CP.PCM.PN ---
Subjective - Date & Time of Evaluation Date of Evaluation: 11/30/17 Time of Evaluation: 18:30 - Subjective Subjective: Infectious Disease Follow Up: November 30, 2017 62 yo male with medical history that includes Bipolar disorder and alcohol abuse presented with EtOH intoxication and now in withdrawals. Originally in the psych floor for bipolar disease treatment and suicidal ideation on 11/21/2017. The patient required intubation. ID called for possible aspiration pneumonia. No fevers, leukocytosis at this time. Remains intubated. Still no fevers or leukocytosis. Remains sedated. Noted blistered skin on right hand that slightly improved. No new issues. Difficult extubation. Patient severely agitated when taken off sedation. Objective - Vital Signs/Intake and Output Vital Signs (last 24 hours): Temp Pulse Resp BP Pulse Ox 99.2 F 100 H 28 H 145/85 97 11/30/17 16:00 11/30/17 18:00 11/30/17 07:28 11/30/17 15:00 11/30/17 14:59 Intake and Output: 11/30/17 12/01/17 18:59 06:59 Intake Total 920 Output Total 600 Balance 320 - Medications Medications: Current Medications Ascorbic Acid (Vitamin C 500 Mg Tab) 500 mg PO DAILY [facility] Last Admin: 11/30/17 10:31 Dose: 500 mg Bacitracin (Bacitracin) 1 ea TOP Q6 PRN PRN Reason: Swelling Last Admin: 11/28/17 09:34 Dose: 1 ea Folic Acid (Folic Acid) 1 mg IVP DAILY [facility] Last Admin: 11/30/17 14:28 Dose: 1 mg Heparin Sodium (Porcine) (Heparin) 5,000 units SC Q12 SHIV PRN Reason: Protocol Last Admin: 11/30/17 10:30 Dose: 5,000 units Hydralazine HCl (Apresoline) 10 mg IVP Q6 PRN PRN Reason: give if SBP >160 Last Admin: 11/30/17 08:42 Dose: 10 mg Propofol (Diprivan) 1,000 mg in 100 mls @ 2.177 mls/hr IV .Q24H PRN; Protocol; 5 MCG/KG/MIN PRN Reason: TITRATE PER MD ORDER Last Admin: 11/30/17 09:42 Dose: 40 mcg/kg/min, 17.418 mls/hr Dexmedetomidine HCl (Precedex 4 Mcg/Ml (100 Ml)) 400 mcg in 100 mls @ 3.629 mls /hr IV .Q24H PRN; Protocol; 0.2 MCG/KG/HR PRN Reason: Agitation Last Admin: 11/30/17 09:47 Dose: 1 mcg/kg/hr, 18.144 mls/hr Insulin Human Lispro (Humalog Low) 0 units SC Q6H SHIV PRN Reason: Protocol Last Admin: 11/30/17 15:00 Dose: Not Given Levalbuterol HCl (Xopenex) 0.63 mg IH TIDRESP PRN PRN Reason: Shortness of Breath Levalbuterol HCl (Xopenex) 0.63 mg IH [id number] [facility] Last Admin: 11/30/17 13:34 Dose: 0.63 mg Lorazepam (Ativan) 4 mg IVP Q4H PRN PRN Reason: Agitation Last Admin: 11/30/17 02:30 Dose: 4 mg Lorazepam (Ativan) 2 mg IVP TID [facility] PRN Reason: Protocol Last Admin: 11/30/17 14:30 Dose: 2 mg Multivitamins/Minerals (Therapeutic-M Tab) 1 tab PO 0800 [facility] Last Admin: 11/30/17 10:31 Dose: 1 tab Pantoprazole Sodium (Protonix Inj) 40 mg IVP DAILY [facility] Last Admin: 11/30/17 10:31 Dose: 40 mg Thiamine HCl (Vitamin B1 Tab) 100 mg PO TID [facility] Last Admin: 11/30/17 17:19 Dose: 100 mg Zinc Sulfate (Zinc Sulfate 220 Mg Cap) 220 mg PO DAILY [facility] Last Admin: 11/30/17 10:31 Dose: 220 mg - Labs Labs: 11/30/17 05:00 11/30/17 05:00 PT 14.5 SECONDS (9.4-12.5) H 11/24/17 09:50 INR 1.26 (0.93-1.08) H 11/24/17 09:50 - Constitutional Appears: Non-toxic, No Acute Distress, Chronically Ill - Head Exam Additional comments: intubated and sedated. - Eye Exam Eye Exam: EOMI, PERRL Pupil Exam: NORMAL ACCOMODATION, PERRL - ENT Exam ENT Exam: Mucous Membranes Moist, Normal External Ear Exam, TM's Normal Bilaterally - Neck Exam Neck Exam: Full ROM, Normal Inspection - Respiratory Exam Respiratory Exam: Clear to Ausculation Bilateral, NORMAL BREATHING PATTERN. absent: Rales, Rhonchi, Wheezes - Cardiovascular Exam Cardiovascular Exam: REGULAR RHYTHM, RRR, +S1, +S2 - GI/Abdominal Exam GI & Abdominal Exam: Soft, Normal Bowel Sounds. absent: Distended, Tenderness - Extremities Exam Extremities Exam: Full ROM, Normal Inspection - Neurological Exam Additional comments: intubated and ventilated. - Psychiatric Exam Psychiatric exam: Normal Affect, Normal Mood - Skin Skin Exam: Intact, Normal Color Assessment and Plan - Assessment and Plan (Free Text) Assessment: 62 yo male with EtOH abuse. Developed EtOH withdrawal and now required intubation and ventilation. The patient was being evaluated by ID for potential aspiration. The patient is currently on Cefepime and Vancomycin. If aspiration is a significant concern, would either add Flagyl IV or switch Cefepime to Meropenem or Zosyn. Febrile several days ago up to 102 F. Afebrile the last few days. No leukocytosis. No findings on Chest X-ray. Supportive care. Procalcitonin is 0.14 which is low. Noted procalcitonin repeated. More likely secondary to the EtOH withdrawal and Delirium Tremens. Case discussed with team. Off antibiotics now. From ID point of view, no obvious infection sources at this time. Patient appears to be more awake and alert. Will Monitor. Difficult extubation/wean from ventilation. Agitation when off sedation. Supportive care. Thank you for allowing me to participate in the care of the patient, we will follow with you.
[2017-12-01] MEDS: Insulin Lispro (humaLOG) LOW Coverage SC SCH ×4 (03:46→22:20)
[2017-12-01] MEDS: Dexmedetomidine 400mcg/100mL 400 MCG/100 ML BOTTLE IV PRN ×2 (03:46→22:36)
[2017-12-01] MEDS: Propofol 10 mg/ml 1,000 MG/100 ML VIAL IV PRN (05:37)
[2017-12-01 07:21] LABS: HEMOGLOBIN 12.2 g/dL (14.0-18.0); MEAN CELL VOLUME 92.2 fl (80.0-105.0); MEAN CORPUSCULAR HEMOGLOBIN 29.7 pg (25.0-35.0); MEAN CORPUSCULAR HGB CONC 32.2 g/dl (31.0-37.0); MEAN PLATELET VOLUME 10.2 fl (7.0-11.0); RBC 4.11 10^6/uL (3.5-6.1); RED CELL DISTRIBUTION WIDTH 14.3 % (11.5-14.5); WHITE BLOOD COUNT 8.2 10^3/ul (4.5-11.0)
[2017-12-01] MEDS: Levalbuterol 0.63 MG/3 ML Inhal Soln UD IH SCH ×3 (07:32→19:15)
[2017-12-01 07:42] LABS: BLOOD UREA NITROGEN 20 mg/dL (7-21); CALCIUM 9.4 mg/dL (8.4-10.5); GFR AFRICAN-AMERICAN > 60; GFR NON-AFRICAN AMERICAN > 60
[2017-12-01] MEDS: Fentanyl 1000mcg/100ml NS 1,000 MCG/100 ML BAG IV PRN (08:24)
--- NOTE | 2017-12-01 08:31 | CP.PCM.PN ---
<Singh Traore - Last Filed: 12/01/17 11:43> Subjective - Date & Time of Evaluation Date of Evaluation: 12/01/17 Time of Evaluation: 08:30 - Subjective Subjective: Singh Traore PGY1 ICU Note for Dr. Kong Patient was seen and examined in ICU. Remains sedated and intubated. Bah catheter in place. No acute events overnight. Objective - Vital Signs/Intake and Output Vital Signs (last 24 hours): Temp Pulse Resp BP Pulse Ox 99.2 F 113 H 28 H 153/97 H 100 11/30/17 16:00 12/01/17 05:00 11/30/17 07:28 12/01/17 05:00 12/01/17 05:00 Intake and Output: 12/01/17 12/01/17 06:59 18:59 Intake Total 100 Balance 100 - Medications Medications: Current Medications Ascorbic Acid (Vitamin C 500 Mg Tab) 500 mg PO DAILY [facility] Last Admin: 11/30/17 10:31 Dose: 500 mg Bacitracin (Bacitracin) 1 ea TOP Q6 PRN PRN Reason: Swelling Last Admin: 11/28/17 09:34 Dose: 1 ea Folic Acid (Folic Acid) 1 mg IVP DAILY [facility] Last Admin: 11/30/17 14:28 Dose: 1 mg Heparin Sodium (Porcine) (Heparin) 5,000 units SC Q12 [facility] PRN Reason: Protocol Last Admin: 11/30/17 21:55 Dose: 5,000 units Hydralazine HCl (Apresoline) 10 mg IVP Q6 PRN PRN Reason: give if SBP >160 Last Admin: 11/30/17 08:42 Dose: 10 mg Dexmedetomidine HCl (Precedex 4 Mcg/Ml (100 Ml)) 400 mcg in 100 mls @ 3.629 mls /hr IV .Q24H PRN; Protocol; 0.2 MCG/KG/HR PRN Reason: Agitation Last Admin: 12/01/17 03:46 Dose: 1 mcg/kg/hr, 18.144 mls/hr Fentanyl Citrate (Fentanyl Citrate/Sodium Chloride 1 Mg/100 Ml) 1,000 mcg in 100 mls @ 5 mls/hr IV .Q20H PRN; Protocol; 50 MCG/HR PRN Reason: TITRATE PER MD ORDER Last Admin: 12/01/17 08:24 Dose: 50 mcg/hr, 5 mls/hr Insulin Human Lispro (Humalog Low) 0 units SC Q6H [facility] PRN Reason: Protocol Last Admin: 12/01/17 03:46 Dose: Not Given Levalbuterol HCl (Xopenex) 0.63 mg IH TIDRESP PRN PRN Reason: Shortness of Breath Levalbuterol HCl (Xopenex) 0.63 mg IH [id number] [facility] Last Admin: 12/01/17 07:32 Dose: 0.63 mg Lorazepam (Ativan) 4 mg IVP Q4H PRN PRN Reason: Agitation Last Admin: 12/01/17 05:01 Dose: 4 mg Lorazepam (Ativan) 2 mg IVP TID [facility] PRN Reason: Protocol Last Admin: 11/30/17 14:30 Dose: 2 mg Multivitamins/Minerals (Therapeutic-M Tab) 1 tab PO 0800 [facility] Last Admin: 11/30/17 10:31 Dose: 1 tab Pantoprazole Sodium (Protonix Inj) 40 mg IVP DAILY [facility] Last Admin: 11/30/17 10:31 Dose: 40 mg Thiamine HCl (Vitamin B1 Tab) 100 mg PO TID [facility] Last Admin: 11/30/17 17:19 Dose: 100 mg Zinc Sulfate (Zinc Sulfate 220 Mg Cap) 220 mg PO DAILY [facility] Last Admin: 11/30/17 10:31 Dose: 220 mg - Labs Labs: 12/01/17 05:30 12/01/17 05:30 PT 14.5 SECONDS (9.4-12.5) H 11/24/17 09:50 INR 1.26 (0.93-1.08) H 11/24/17 09:50 - Constitutional Appears: Well, Non-toxic, No Acute Distress - Head Exam Head Exam: ATRAUMATIC, NORMAL INSPECTION - Eye Exam Eye Exam: Normal appearance, PERRL - ENT Exam Additional comments: intubated, on vent OGT in place receiving tube feeds - Neck Exam Neck Exam: Normal Inspection - Respiratory Exam Respiratory Exam: NORMAL BREATHING PATTERN. absent: Rales, Wheezes Additional comments: intubated, on vent - Cardiovascular Exam Cardiovascular Exam: Tachycardia, +S1, +S2 - GI/Abdominal Exam GI & Abdominal Exam: Soft. absent: Distended, Tenderness - Extremities Exam Extremities Exam: Normal Inspection Additional comments: 2-point restraints - Back Exam Back Exam: NORMAL INSPECTION - Neurological Exam Neurological Exam: Altered Additional comments: sedated on fentanyl - Psychiatric Exam Additional comments: could not be assessed - Skin Skin Exam: Normal Color, Warm Assessment and Plan - Assessment and Plan (Free Text) Assessment: 62yo M with past medical history of bipolar disorder admitted for delirium tremens secondary to EtOH withdrawal as well as rhabdomyolysis (improved) Plan: Neuro: - Intubated and sedated on fentanyl - will wean off precedex - Ativan prn and scheduled - Neuro consulted- recs appreciated - EEG done 11/28 and 12/01, pending official reads - Continue CIWA protocol, seizure precaution, aspiration precaution - Head CT negative for acute pathology Cardio: - HD stable - Maintain MAP> 65mmHg Pulm: - Intubated on PRVC- wean as tolerated - Protective lung ventilation strategy, HOB elevated - Xopenex SHIV and PRN - Aspiration precautions, Xopenex - Maintain spO2>90% GI: - Tube feeds@30ml/hr - Thiamine, Folic acid Heme: - Hgb stable Nephro: - Rhabdomyolysis- resolved - CK: 200s - Hypokalemia, will replete - Will continue to monitor electrolytes and replace as needed - Continue to monitor I&O ID: - Afebrile, no leukocytosis - No sign of infection at this time - PCT: 0.14 low - Bacitracin, Zinc, MV and vit C for skin - ID consulted- recs appreciated Psych: - Hx of Bipolar - Psych consulted- recs appreciated - will evaluate once off of sedation GI ppx: Protonix DVT ppx: Heparin SC Diet: Tube feeds Dispo: Will try to wean off of sedation as tolerated. Will trial wean off vent daily. Patient was seen, examined, and discussed with attending, Dr. Dilan Traore PGY1 Pager [phone] <Cooper Kong - Last Filed: 12/01/17 12:59> Objective - Vital Signs/Intake and Output Vital Signs (last 24 hours): Temp Pulse Resp BP Pulse Ox 99.2 F 88 22 153/97 H 98 11/30/17 16:00 12/01/17 10:00 12/01/17 07:32 12/01/17 05:00 12/01/17 07:32 Intake and Output: 12/01/17 12/01/17 06:59 18:59 Intake Total 100 Balance 100 - Medications Medications: Current Medications Ascorbic Acid (Vitamin C 500 Mg Tab) 500 mg PO DAILY [facility] Last Admin: 12/01/17 10:08 Dose: 500 mg Bacitracin (Bacitracin) 1 ea TOP Q6 PRN PRN Reason: Swelling Last Admin: 11/28/17 09:34 Dose: 1 ea Folic Acid (Folic Acid) 1 mg PO DAILY [facility] Last Admin: 12/01/17 11:14 Dose: 1 mg Heparin Sodium (Porcine) (Heparin) 5,000 units SC Q12 [facility] PRN Reason: Protocol Last Admin: 12/01/17 10:07 Dose: 5,000 units Hydralazine HCl (Apresoline) 10 mg IVP Q6 PRN PRN Reason: give if SBP >160 Last Admin: 11/30/17 08:42 Dose: 10 mg Dexmedetomidine HCl (Precedex 4 Mcg/Ml (100 Ml)) 400 mcg in 100 mls @ 3.629 mls /hr IV .Q24H PRN; Protocol; 0.2 MCG/KG/HR PRN Reason: Agitation Last Admin: 12/01/17 03:46 Dose: 1 mcg/kg/hr, 18.144 mls/hr Fentanyl Citrate (Fentanyl Citrate/Sodium Chloride 1 Mg/100 Ml) 1,000 mcg in 100 mls @ 5 mls/hr IV .Q20H PRN; Protocol; 50 MCG/HR PRN Reason: TITRATE PER MD ORDER Last Admin: 12/01/17 08:24 Dose: 50 mcg/hr, 5 mls/hr Insulin Human Lispro (Humalog Low) 0 units SC Q6H [facility] PRN Reason: Protocol Last Admin: 12/01/17 09:00 Dose: Not Given Levalbuterol HCl (Xopenex) 0.63 mg IH TIDRESP PRN PRN Reason: Shortness of Breath Levalbuterol HCl (Xopenex) 0.63 mg IH [id number] [facility] Last Admin: 12/01/17 07:32 Dose: 0.63 mg Lorazepam (Ativan) 4 mg IVP Q4H PRN PRN Reason: Agitation Last Admin: 12/01/17 12:47 Dose: 4 mg Lorazepam (Ativan) 2 mg IVP TID [facility] PRN Reason: Protocol Last Admin: 12/01/17 10:09 Dose: Not Given Multivitamins/Minerals (Therapeutic-M Tab) 1 tab PO 0800 [facility] Last Admin: 12/01/17 10:08 Dose: 1 tab Pantoprazole Sodium (Protonix Inj) 40 mg IVP DAILY [facility] Last Admin: 12/01/17 10:07 Dose: 40 mg Thiamine HCl (Vitamin B1 Tab) 100 mg PO TID [facility] Last Admin: 12/01/17 10:08 Dose: 100 mg Zinc Sulfate (Zinc Sulfate 220 Mg Cap) 220 mg PO DAILY [facility] Last Admin: 12/01/17 10:08 Dose: 220 mg - Labs Labs: 12/01/17 05:30 12/01/17 05:30 PT 14.5 SECONDS (9.4-12.5) H 11/24/17 09:50 INR 1.26 (0.93-1.08) H 11/24/17 09:50 Assessment and Plan - Assessment and Plan (Free Text) Assessment: Pt seen and examined on rounds with resident, agree with note with following additions/exceptions: 62yo male with PMHx of heavy EtOH abuse a/w EtOH withdrawal, DTs, intubated. Patient with agitation, confusion, once off sedation. Very difficult to wean off ventilator 2/2 poor mental status. On Precedex drip, propofol off. CT head negative. EEG done this morning, read pending. Neurology following. Delirium Tremens Alcohol Withdrawal Dehydration AMS Rhabdo Recommend: - cont with ventilatory support, daily sedation vacation, daily cpap trials - monitor off antibiotics, procal negative, cultures negative thus far - IVF hydration - Thiamine, Folic, MVT - Precedex drip - follow up Psych - neurology consult, EEG - Feeds - GI ppx - DVT ppx - Monitor in MICU
[2017-12-01] MEDS ORDERED: Potassium Chloride 40 mEq/30 ml LIQ UD PO ONE (08:38)
--- NOTE | 2017-12-01 09:17 | RAD ---
HISTORY: intubated COMPARISON: 11/29/2017. FINDINGS: The endotracheal tube terminates 2.0 cm proximal to the pipo. The nasogastric tube terminates in the stomach. LUNGS: No change in right basilar atelectasis/scarring. The left lung is well inflated and clear. PLEURA: Question of small right pleural effusion, no pneumothorax apparent. CARDIOVASCULAR: Normal. OSSEOUS STRUCTURES: No significant abnormalities. VISUALIZED UPPER ABDOMEN: Normal. OTHER FINDINGS: The right hemidiaphragm is elevated. IMPRESSION: Question of small right pleural effusion. No active pulmonary disease. Stable position of endotracheal and nasogastric tubes.
[2017-12-01 09:20] LABS: MAGNESIUM 2.4 mg/dL (1.7-2.2)
[2017-12-01] MEDS: Multivitamin With Minerals Tab PO SCH (10:08)
--- NOTE | 2017-12-01 13:05 | CP.PCM.PN ---
<Sarkis Fuentes - Last Filed: 12/01/17 13:12> Subjective - Date & Time of Evaluation Date of Evaluation: 12/01/17 Time of Evaluation: 07:10 - Subjective Subjective: Medicine progress note for Dr. Samantha Tabor Hospitalist Service: Patient seen and examined. Patient appears tremulous with the decrease in sedation. He remains non-verbal due to intubation and sedation. Therefore, cannot obtain ROS. Objective - Vital Signs/Intake and Output Vital Signs (last 24 hours): Temp Pulse Resp BP Pulse Ox 99.2 F 88 22 153/97 H 98 11/30/17 16:00 12/01/17 10:00 12/01/17 07:32 12/01/17 05:00 12/01/17 07:32 Intake and Output: 12/01/17 12/01/17 06:59 18:59 Intake Total 100 Balance 100 - Medications Medications: Current Medications Ascorbic Acid (Vitamin C 500 Mg Tab) 500 mg PO DAILY [facility] Last Admin: 12/01/17 10:08 Dose: 500 mg Bacitracin (Bacitracin) 1 ea TOP Q6 PRN PRN Reason: Swelling Last Admin: 11/28/17 09:34 Dose: 1 ea Folic Acid (Folic Acid) 1 mg PO DAILY [facility] Last Admin: 12/01/17 11:14 Dose: 1 mg Heparin Sodium (Porcine) (Heparin) 5,000 units SC Q12 [facility] PRN Reason: Protocol Last Admin: 12/01/17 10:07 Dose: 5,000 units Hydralazine HCl (Apresoline) 10 mg IVP Q6 PRN PRN Reason: give if SBP >160 Last Admin: 11/30/17 08:42 Dose: 10 mg Dexmedetomidine HCl (Precedex 4 Mcg/Ml (100 Ml)) 400 mcg in 100 mls @ 3.629 mls /hr IV .Q24H PRN; Protocol; 0.2 MCG/KG/HR PRN Reason: Agitation Last Admin: 12/01/17 03:46 Dose: 1 mcg/kg/hr, 18.144 mls/hr Fentanyl Citrate (Fentanyl Citrate/Sodium Chloride 1 Mg/100 Ml) 1,000 mcg in 100 mls @ 5 mls/hr IV .Q20H PRN; Protocol; 50 MCG/HR PRN Reason: TITRATE PER MD ORDER Last Admin: 12/01/17 08:24 Dose: 50 mcg/hr, 5 mls/hr Insulin Human Lispro (Humalog Low) 0 units SC Q6H [facility] PRN Reason: Protocol Last Admin: 12/01/17 09:00 Dose: Not Given Levalbuterol HCl (Xopenex) 0.63 mg IH TIDRESP PRN PRN Reason: Shortness of Breath Levalbuterol HCl (Xopenex) 0.63 mg IH [id number] [facility] Last Admin: 12/01/17 07:32 Dose: 0.63 mg Lorazepam (Ativan) 4 mg IVP Q4H PRN PRN Reason: Agitation Last Admin: 12/01/17 12:47 Dose: 4 mg Lorazepam (Ativan) 2 mg IVP TID [facility]IV PRN Reason: Protocol Last Admin: 12/01/17 10:09 Dose: Not Given Multivitamins/Minerals (Therapeutic-M Tab) 1 tab PO 0800 [facility] Last Admin: 12/01/17 10:08 Dose: 1 tab Pantoprazole Sodium (Protonix Inj) 40 mg IVP DAILY [facility] Last Admin: 12/01/17 10:07 Dose: 40 mg Thiamine HCl (Vitamin B1 Tab) 100 mg PO TID [facility] Last Admin: 12/01/17 10:08 Dose: 100 mg Zinc Sulfate (Zinc Sulfate 220 Mg Cap) 220 mg PO DAILY [facility] Last Admin: 12/01/17 10:08 Dose: 220 mg - Labs Labs: 12/01/17 05:30 12/01/17 05:30 PT 14.5 SECONDS (9.4-12.5) H 11/24/17 09:50 INR 1.26 (0.93-1.08) H 11/24/17 09:50 - Constitutional Appears: Chronically Ill - Head Exam Head Exam: ATRAUMATIC, NORMOCEPHALIC - Eye Exam Eye Exam: EOMI, Normal appearance - ENT Exam ENT Exam: Mucous Membranes Moist Additional comments: OGT and endotracheal tube in place - Respiratory Exam Respiratory Exam: Decreased Breath Sounds, Rhonchi. absent: Rales, Wheezes - Cardiovascular Exam Cardiovascular Exam: Tachycardia, +S1, +S2 - GI/Abdominal Exam GI & Abdominal Exam: Soft, Normal Bowel Sounds. absent: Distended, Firm - Neurological Exam Neurological Exam: Altered - Skin Skin Exam: Intact, Warm Assessment and Plan - Assessment and Plan (Free Text) Assessment: 62 year old male with PMHx of Bipolar disorder and ETOH abuse in ICU for DTs. Patient initially admitted to psych for suicidal ideation then transferred to in -patient due to severe ETOH withdrawal with DTs requiring high-dose sedation and intubation. Will follow up EEG. Plan: 1. ETOH withdrawal with Delirium Tremens - Intubated and sedated currently on Fentanyl drip and weaning off Precedex as tolerated. Propofol discontinued - Neuro consulted- recs appreciated- recommend EEG, will follow up - Continue CIWA protocol, seizure precaution, aspiration precaution - Ativan 4 mg IV prn agitation and 2 mg IV TID scheduled - Head CT negative for acute pathology 2. Altered Mental Status, currently being sedated for DT's - CT head was unremarkable - thiamine increased to protect against encephalopathy - neuro consulted, Dr. Rosenberg, appreciate recs 3. Blisters on hands (not affecting IV lines) - Multivitamin, vit C and Zinc added - Bacitracin ointment to be applied 4. Possible Rhabdomyolysis, improving with sedation - likely secondary to DT's - Total CK trending down - renal function has not been affected - Continue hydration - will monitor 5. Fever of unknown origin - Likely secondary to ETOH withdrawals - CXR showing trace right bibasilar pleural effusion - Blood and stool Cxs show no growth - No Leukocytosis, afebrile. Abx discontinued per ID - ID following, appreciate recs - [id number], no leukocytosis - No sign of infection at this time 6. Electrolyte imbalance - monitor and replete as needed - Rhabdomyolysis- resolved 7. PPx - SCDs - Aspiration precautions - Seizure precautions - Heparin SC - Protonix <Samantha Tabor - Last Filed: 12/01/17 18:21> Objective - Vital Signs/Intake and Output Vital Signs (last 24 hours): Temp Pulse Resp BP Pulse Ox 101.8 F H 85 22 130/89 99 12/01/17 16:00 12/01/17 17:00 12/01/17 07:32 12/01/17 17:00 12/01/17 17:00 Intake and Output: 12/01/17 12/01/17 06:59 18:59 Intake Total 100 Balance 100 - Medications Medications: Current Medications Ascorbic Acid (Vitamin C 500 Mg Tab) 500 mg PO DAILY [facility] Last Admin: 12/01/17 10:08 Dose: 500 mg Bacitracin (Bacitracin) 1 ea TOP Q6 PRN PRN Reason: Swelling Last Admin: 11/28/17 09:34 Dose: 1 ea Folic Acid (Folic Acid) 1 mg PO DAILY [facility] Last Admin: 12/01/17 11:14 Dose: 1 mg Heparin Sodium (Porcine) (Heparin) 5,000 units SC Q12 [facility]IV PRN Reason: Protocol Last Admin: 12/01/17 10:07 Dose: 5,000 units Hydralazine HCl (Apresoline) 10 mg IVP Q6 PRN PRN Reason: give if SBP >160 Last Admin: 11/30/17 08:42 Dose: 10 mg Dexmedetomidine HCl (Precedex 4 Mcg/Ml (100 Ml)) 400 mcg in 100 mls @ 3.629 mls /hr IV .Q24H PRN; Protocol; 0.2 MCG/KG/HR PRN Reason: Agitation Last Admin: 12/01/17 03:46 Dose: 1 mcg/kg/hr, 18.144 mls/hr Fentanyl Citrate (Fentanyl Citrate/Sodium Chloride 1 Mg/100 Ml) 1,000 mcg in 100 mls @ 5 mls/hr IV .Q20H PRN; Protocol; 50 MCG/HR PRN Reason: TITRATE PER MD ORDER Last Admin: 12/01/17 08:24 Dose: 50 mcg/hr, 5 mls/hr Insulin Human Lispro (Humalog Low) 0 units SC Q6H [facility] PRN Reason: Protocol Last Admin: 12/01/17 15:00 Dose: Not Given Levalbuterol HCl (Xopenex) 0.63 mg IH TIDRESP PRN PRN Reason: Shortness of Breath Levalbuterol HCl (Xopenex) 0.63 mg IH [id number] [facility] Last Admin: 12/01/17 13:29 Dose: 0.63 mg Lorazepam (Ativan) 4 mg IVP Q4H PRN PRN Reason: Agitation Last Admin: 12/01/17 12:47 Dose: 4 mg Lorazepam (Ativan) 2 mg IVP TID [facility] PRN Reason: Protocol Last Admin: 12/01/17 14:00 Dose: Not Given Multivitamins/Minerals (Therapeutic-M Tab) 1 tab PO 0800 [facility] Last Admin: 12/01/17 10:08 Dose: 1 tab Pantoprazole Sodium (Protonix Inj) 40 mg IVP DAILY [facility] Last Admin: 12/01/17 10:07 Dose: 40 mg Thiamine HCl (Vitamin B1 Tab) 100 mg PO TID [facility] Last Admin: 12/01/17 17:55 Dose: Not Given Zinc Sulfate (Zinc Sulfate 220 Mg Cap) 220 mg PO DAILY [facility] Last Admin: 12/01/17 10:08 Dose: 220 mg - Labs Labs: 12/01/17 05:30 12/01/17 05:30 PT 14.5 SECONDS (9.4-12.5) H 11/24/17 09:50 INR 1.26 (0.93-1.08) H 11/24/17 09:50 Attending/Attestation - Attestation I have personally seen and examined this patient.: Yes I have fully participated in the care of the patient.: Yes I have reviewed all pertinent clinical information, including history, physical exam and plan: Yes Notes (Text): I have seen and examined the patient at bedside. Agree with the above note with the following additions/ exceptions: Briefly this is 62 year old male with history of bipolar disorder and chronic alcohol abuse who was admitted for alcohol withdrawal. Patient is intubated and sedated. He gets agitated and restless upon discontinuation of sedation. Weaning trial per ICU team. CT head was negative. Will continue Ativan. EEG pending. He has been afebrile. Cultures have been negative. Procal negative as well. Antibiotics discontinued. He has transaminitis due to alcohol abuse. Currently on tube feeding. Upon discharge patient will follow up in [facility] clinic. Dr Samantha Tabor
--- NOTE | 2017-12-01 13:23 | CP.PCM.PN ---
Subjective - Date & Time of Evaluation Date of Evaluation: 12/01/17 Time of Evaluation: 13:20 - Subjective Subjective: Mr. Koch was seen and examined at the bedside in ICU. He remains on mechanical ventilator with PRVC mode. He response to pain stimuli but unable to follow simple commands. Without sedation, the patient heart rate elevated with blood pressure. Currently, he is on fentanyl drip.He is restless that he remains with bilateral wrist restraints for patient safety. Objective - Vital Signs/Intake and Output Vital Signs (last 24 hours): Temp Pulse Resp BP Pulse Ox 99.2 F 88 22 153/97 H 98 11/30/17 16:00 12/01/17 10:00 12/01/17 07:32 12/01/17 05:00 12/01/17 07:32 Intake and Output: 12/01/17 12/01/17 06:59 18:59 Intake Total 100 Balance 100 - Medications Medications: Current Medications Ascorbic Acid (Vitamin C 500 Mg Tab) 500 mg PO DAILY [facility] Last Admin: 12/01/17 10:08 Dose: 500 mg Bacitracin (Bacitracin) 1 ea TOP Q6 PRN PRN Reason: Swelling Last Admin: 11/28/17 09:34 Dose: 1 ea Folic Acid (Folic Acid) 1 mg PO DAILY [facility] Last Admin: 12/01/17 11:14 Dose: 1 mg Heparin Sodium (Porcine) (Heparin) 5,000 units SC Q12 [facility] PRN Reason: Protocol Last Admin: 12/01/17 10:07 Dose: 5,000 units Hydralazine HCl (Apresoline) 10 mg IVP Q6 PRN PRN Reason: give if SBP >160 Last Admin: 11/30/17 08:42 Dose: 10 mg Dexmedetomidine HCl (Precedex 4 Mcg/Ml (100 Ml)) 400 mcg in 100 mls @ 3.629 mls /hr IV .Q24H PRN; Protocol; 0.2 MCG/KG/HR PRN Reason: Agitation Last Admin: 12/01/17 03:46 Dose: 1 mcg/kg/hr, 18.144 mls/hr Fentanyl Citrate (Fentanyl Citrate/Sodium Chloride 1 Mg/100 Ml) 1,000 mcg in 100 mls @ 5 mls/hr IV .Q20H PRN; Protocol; 50 MCG/HR PRN Reason: TITRATE PER MD ORDER Last Admin: 12/01/17 08:24 Dose: 50 mcg/hr, 5 mls/hr Insulin Human Lispro (Humalog Low) 0 units SC Q6H [facility] PRN Reason: Protocol Last Admin: 12/01/17 09:00 Dose: Not Given Levalbuterol HCl (Xopenex) 0.63 mg IH TIDRESP PRN PRN Reason: Shortness of Breath Levalbuterol HCl (Xopenex) 0.63 mg IH [id number] [facility] Last Admin: 12/01/17 07:32 Dose: 0.63 mg Lorazepam (Ativan) 4 mg IVP Q4H PRN PRN Reason: Agitation Last Admin: 12/01/17 12:47 Dose: 4 mg Lorazepam (Ativan) 2 mg IVP TID [facility] PRN Reason: Protocol Last Admin: 12/01/17 10:09 Dose: Not Given Multivitamins/Minerals (Therapeutic-M Tab) 1 tab PO 0800 [facility] Last Admin: 12/01/17 10:08 Dose: 1 tab Pantoprazole Sodium (Protonix Inj) 40 mg IVP DAILY [facility] Last Admin: 12/01/17 10:07 Dose: 40 mg Thiamine HCl (Vitamin B1 Tab) 100 mg PO TID [facility] Last Admin: 12/01/17 10:08 Dose: 100 mg Zinc Sulfate (Zinc Sulfate 220 Mg Cap) 220 mg PO DAILY [facility] Last Admin: 12/01/17 10:08 Dose: 220 mg - Labs Labs: 12/01/17 05:30 12/01/17 05:30 PT 14.5 SECONDS (9.4-12.5) H 11/24/17 09:50 INR 1.26 (0.93-1.08) H 11/24/17 09:50 - Constitutional Appears: No Acute Distress - Head Exam Head Exam: NORMAL INSPECTION - Neurological Exam Neuro motor strength exam: Left Upper Extremity: 3, Right Upper Extremity: 3, Left Lower Extremity: 3, Right Lower Extremity: 3 Additional comments: He is restless without sedation with elevated heart rate and blood pressure. He is unable to follow simple commands. Assessment and Plan (1) Altered mental status, unspecified Assessment & Plan: Case discussed with DR. Ingram, continue all current medical regimen. EEG pending. Rec Status: Acute
--- NOTE | 2017-12-01 22:59 | CP.PCM.PN ---
Subjective - Date & Time of Evaluation Date of Evaluation: 12/01/17 Time of Evaluation: 21:30 - Subjective Subjective: Infectious Disease Follow Up: December 01, 2017 62 yo male with medical history that includes Bipolar disorder and alcohol abuse presented with EtOH intoxication and now in withdrawals. Originally in the psych floor for bipolar disease treatment and suicidal ideation on 11/21/2017. The patient required intubation. ID called for possible aspiration pneumonia. No fevers, leukocytosis at this time. Remains intubated. Still no fevers or leukocytosis. Remains sedated. Noted blistered skin on right hand that slightly improved. Epidose of fevers up to 101.8F today. Episode of fever up to 100.8 F yesterday. Reculture with next fever. Still no leukocytosis. Patient highly agitated on attempts to wean sedation. No new issues. Difficult extubation. Patient severely agitated when taken off sedation. Objective - Vital Signs/Intake and Output Vital Signs (last 24 hours): Temp Pulse Resp BP Pulse Ox 101.8 F H 75 22 110/61 99 12/01/17 16:00 12/01/17 18:00 12/01/17 07:32 12/01/17 18:00 12/01/17 18:00 Intake and Output: 12/01/17 12/02/17 18:59 06:59 Intake Total 860 100 Output Total 400 Balance 460 100 - Medications Medications: Current Medications Ascorbic Acid (Vitamin C 500 Mg Tab) 500 mg PO DAILY [facility] Last Admin: 12/01/17 10:08 Dose: 500 mg Bacitracin (Bacitracin) 1 ea TOP Q6 PRN PRN Reason: Swelling Last Admin: 11/28/17 09:34 Dose: 1 ea Folic Acid (Folic Acid) 1 mg PO DAILY [facility] Last Admin: 12/01/17 11:14 Dose: 1 mg Heparin Sodium (Porcine) (Heparin) 5,000 units SC Q12 [facility] PRN Reason: Protocol Last Admin: 12/01/17 22:34 Dose: 5,000 units Hydralazine HCl (Apresoline) 10 mg IVP Q6 PRN PRN Reason: give if SBP >160 Last Admin: 11/30/17 08:42 Dose: 10 mg Dexmedetomidine HCl (Precedex 4 Mcg/Ml (100 Ml)) 400 mcg in 100 mls @ 3.629 mls /hr IV .Q24H PRN; Protocol; 0.2 MCG/KG/HR PRN Reason: Agitation Last Admin: 12/01/17 22:36 Dose: 1 mcg/kg/hr, 18.144 mls/hr Fentanyl Citrate (Fentanyl Citrate/Sodium Chloride 1 Mg/100 Ml) 1,000 mcg in 100 mls @ 5 mls/hr IV .Q20H PRN; Protocol; 50 MCG/HR PRN Reason: TITRATE PER MD ORDER Last Admin: 12/01/17 08:24 Dose: 50 mcg/hr, 5 mls/hr Insulin Human Lispro (Humalog Low) 0 units SC Q6H [facility] PRN Reason: Protocol Last Admin: 12/01/17 15:00 Dose: Not Given Levalbuterol HCl (Xopenex) 0.63 mg IH TIDRESP PRN PRN Reason: Shortness of Breath Levalbuterol HCl (Xopenex) 0.63 mg IH [id number] [facility] Last Admin: 12/01/17 19:15 Dose: 0.63 mg Lorazepam (Ativan) 4 mg IVP Q4H PRN PRN Reason: Agitation Last Admin: 12/01/17 12:47 Dose: 4 mg Lorazepam (Ativan) 2 mg IVP TID [facility] PRN Reason: Protocol Last Admin: 12/01/17 18:00 Dose: Not Given Multivitamins/Minerals (Therapeutic-M Tab) 1 tab PO 0800 [facility] Last Admin: 12/01/17 10:08 Dose: 1 tab Pantoprazole Sodium (Protonix Inj) 40 mg IVP DAILY [facility] Last Admin: 12/01/17 10:07 Dose: 40 mg Thiamine HCl (Vitamin B1 Tab) 100 mg PO TID [facility] Last Admin: 12/01/17 18:30 Dose: 100 mg Zinc Sulfate (Zinc Sulfate 220 Mg Cap) 220 mg PO DAILY [facility] Last Admin: 12/01/17 10:08 Dose: 220 mg - Labs Labs: 12/01/17 05:30 12/01/17 05:30 PT 14.5 SECONDS (9.4-12.5) H 11/24/17 09:50 INR 1.26 (0.93-1.08) H 11/24/17 09:50 - Constitutional Appears: Non-toxic, No Acute Distress, Chronically Ill - Head Exam Additional comments: intubated and sedated. - Eye Exam Eye Exam: EOMI, PERRL Pupil Exam: NORMAL ACCOMODATION, PERRL - ENT Exam ENT Exam: Mucous Membranes Moist, Normal External Ear Exam, TM's Normal Bilaterally - Neck Exam Neck Exam: Full ROM, Normal Inspection - Respiratory Exam Respiratory Exam: Clear to Ausculation Bilateral, NORMAL BREATHING PATTERN. absent: Rales, Rhonchi, Wheezes - Cardiovascular Exam Cardiovascular Exam: REGULAR RHYTHM, RRR, +S1, +S2 - GI/Abdominal Exam GI & Abdominal Exam: Soft, Normal Bowel Sounds. absent: Distended, Tenderness - Extremities Exam Extremities Exam: Full ROM, Normal Inspection - Neurological Exam Additional comments: intubated and ventilated. - Psychiatric Exam Additional comments: Intubated, ventilated, and sedated. - Skin Skin Exam: Intact, Normal Color Assessment and Plan - Assessment and Plan (Free Text) Assessment: 62 yo male with EtOH abuse. Developed EtOH withdrawal and now required intubation and ventilation. The patient was being evaluated by ID for potential aspiration. The patient is currently on Cefepime and Vancomycin. If aspiration is a significant concern, would either add Flagyl IV or switch Cefepime to Meropenem or Zosyn. Febrile several days ago up to 102 F. Afebrile the last few days. No leukocytosis. No findings on Chest X-ray. Supportive care. Procalcitonin is 0.14 which is low. Noted procalcitonin repeated. More likely secondary to the EtOH withdrawal and Delirium Tremens. Case discussed with team. Off antibiotics now. Will Monitor. Difficult extubation/wean from ventilation. Agitation when off sedation. Fever up to 101.8 F this evening. 100.8 F last evening. Repeat cultures with next fever. Check urinalysis and urine culture. Supportive care. Thank you for allowing me to participate in the care of the patient, we will follow with you.
[2017-12-02] MEDS: Fentanyl 1000mcg/100ml NS 1,000 MCG/100 ML BAG IV PRN ×3 (00:24→22:49)
[2017-12-02] MEDS: Levalbuterol 0.63 MG/3 ML Inhal Soln UD IH SCH ×2 (01:26→07:01)
[2017-12-02 02:21] LABS: URINE BILIRUBIN NEGATIVE (NEGATIVE); URINE BLOOD LARGE (NEGATIVE); URINE GLUCOSE (UA) NEGATIVE (NEGATIVE); URINE LEUKOCYTE ESTERASE NEGATIVE Leu/uL (NEGATIVE); URINE NITRATE NEGATIVE (NEGATIVE); URINE PROTEIN 30 mg/dL (<30 mg/dL); URINE UROBILINOGEN 0.2 E.U./dL (<1 E.U./dL)
[2017-12-02 02:24] LABS: URINE APPEARANCE SL CLOUDY (CLEAR); URINE COLOR YELLOW (YELLOW)
[2017-12-02 02:37] LABS: URINE EPITHELIAL CELLS 0 - 2 /hpf (0-5); URINE RBC TNTC /hpf (0-2); URINE WBC 0 - 2 /hpf (0-6)
[2017-12-02 02:38] LABS: URINE BACTERIA FEW (NEG)
[2017-12-02] MEDS: Dexmedetomidine 400mcg/100mL 400 MCG/100 ML BOTTLE IV PRN ×5 (05:17→23:09)
[2017-12-02 07:38] LABS: HEMOGLOBIN 12.1 g/dL (14.0-18.0); MEAN CORPUSCULAR HEMOGLOBIN 29.2 pg (25.0-35.0); MEAN CORPUSCULAR HGB CONC 31.1 g/dl (31.0-37.0); MEAN PLATELET VOLUME 10.4 fl (7.0-11.0); RBC 4.14 10^6/uL (3.5-6.1); RED CELL DISTRIBUTION WIDTH 14.1 % (11.5-14.5); WHITE BLOOD COUNT 7.1 10^3/ul (4.5-11.0)
[2017-12-02 07:51] LABS: INR 1.3 (0.93-1.08)
[2017-12-02] MEDS ORDERED: Potassium Chloride 40 mEq/30 ml LIQ UD PO ONE (08:00)
--- NOTE | 2017-12-02 08:18 | RAD ---
HISTORY: intubated COMPARISON: 12/01/2017 FINDINGS: LUNGS: No active pulmonary disease. PLEURA: Minimal blunting right costophrenic angle may reflect chronic pleural thickening or small pleural effusion. CARDIOVASCULAR: Normal heart size. ET tube and NG tube unchanged. OSSEOUS STRUCTURES: No significant abnormalities. VISUALIZED UPPER ABDOMEN: Normal. OTHER FINDINGS: None. IMPRESSION: Possible very small right pleural effusion. No infiltrate.
[2017-12-02 08:35] LABS: ALB/GLOB RATIO 1.3 (1.1-1.8); ALBUMIN 3.5 g/dL (3.0-4.8); ALT/SGPT 69 U/L (7-56); AST/SGOT 38 U/L (17-59); BLOOD UREA NITROGEN 25 mg/dL (7-21); CALCIUM 9.3 mg/dL (8.4-10.5); GFR AFRICAN-AMERICAN > 60; GFR NON-AFRICAN AMERICAN > 60; MAGNESIUM 2.4 mg/dL (1.7-2.2)
[2017-12-02] MEDS: Insulin Lispro (humaLOG) LOW Coverage SC SCH ×3 (09:00→21:12)
--- NOTE | 2017-12-02 09:33 | CP.CCUPN ---
<EugenieSingh - Last Filed: 12/02/17 10:15> CCU Subjective - Physician Review Subjective (Free Text): Singh Traore PGY1 ICU Note for Dr. Kong Patient was seen and examined in ICU. Remains sedated and intubated on vent, however, was noted to be restless overnight. Bah catheter in place. Patient had fever of 101.8 yesterday, UA and cultures were sent, however, work up so far is negative. ROS could not be obtained. CCU Objective - Vital Signs / Intake & Output Vital Signs (Last 4 hours): Vital Signs Pulse Resp BP Pulse Ox 12/02/17 09:00 115 H 153/102 H 98 12/02/17 08:57 102 H 12/02/17 08:35 23 100 12/02/17 08:02 102 H 160/90 H 100 12/02/17 08:00 106 H 100 12/02/17 07:00 82 110/62 100 12/02/17 06:00 83 105/54 L 100 Intake and Output (Last 8hrs): Intake & Output 12/01/17 12/02/17 12/02/17 22:59 06:59 14:59 Intake Total 960 206 Output Total 400 Balance 560 206 Weight 162 lb 8 oz Intake: IV 450 206 Left Wrist 350 Tube Feeding 360 Other 150 Output: Urine 400 Urine, Voided 400 - Physical Exam Physical Exam Limitations: Positive for: Altered Mental Status Head: Positive for: Atraumatic, Normocephalic Pupils: Positive for: PERRL Conjunctiva: Positive for: Normal. Negative for: Injected, Icteric Ears: Positive for: Normal Mouth: Positive for: Normal Teeth, Other (mild dry oral mucosa, ET/OG tube in place) Pharnyx: Positive for: Normal Nose (External): Positive for: Atraumatic Nose (Internal): Positive for: Normal Inspection Neck: Negative for: JVD Respiratory/Chest: Positive for: Good Air Exchange, Other (intubated on vent). Negative for: Respiratory Distress, Accessory Muscle Use, Wheezes, Rales, Retracting, Rhonchi, Tachypneic Cardiovascular: Positive for: Normal S1, S2, Tachycardic. Negative for: Murmurs Abdomen: Positive for: Normal Bowel Sounds. Negative for: Tenderness, Distention, Peritoneal Signs, Rebound, Guarding Back: Positive for: Normal Inspection. Negative for: Midline Tenderness Upper Extremity: Positive for: Normal Inspection, NORMAL PULSES. Negative for: Cyanosis, Edema Lower Extremity: Positive for: Normal Inspection, NORMAL PULSES. Negative for: Edema Neurological: Positive for: Other (sedated on fentanyl and precedex ) Skin: Positive for: Warm, Dry, Normal Color Psychiatric: Positive for: Other (sedated). Negative for: Alert, Oriented x 3, Normal Insight, Normal Concentration - Medications Active Medications: Active Medications Generic Name Dose Route Start Last Admin Trade Name Freq PRN Reason Stop Dose Admin Ascorbic Acid 500 mg 11/28/17 11:30 12/01/17 10:08 Vitamin C 500 Mg Tab PO 500 mg DAILY SHIV Administration Bacitracin 1 ea 11/28/17 08:51 11/28/17 09:34 Bacitracin TOP 1 ea Q6 PRN Administration Swelling Folic Acid 1 mg 12/01/17 10:15 12/01/17 11:14 Folic Acid PO 1 mg DAILY SHIV Administration Heparin Sodium (Porcine) 5,000 units 11/21/17 22:00 12/01/17 22:34 Heparin SC 5,000 units Q12 SHIV Administration Protocol Hydralazine HCl 10 mg 11/29/17 14:56 11/30/17 08:42 Apresoline IVP 10 mg Q6 PRN Administration give if SBP >160 Dexmedetomidine HCl 400 mcg in 100 mls @ 3.629 mls/hr 11/26/17 09:21 05:17 Precedex 4 Mcg/Ml (100 Ml) IV 1 mcg/kg/hr .Q24H PRN 18.144 mls/hr Agitation Administration Protocol 0.2 MCG/KG/HR Fentanyl Citrate 1,000 mcg in 100 mls @ 5 mls/hr 12/01/17 08:08 12/02/17 01: 00 Fentanyl Citrate/Sodium Chloride 1 Mg/100 Ml IV 70 mcg/hr .Q20H PRN 7 mls/hr TITRATE PER MD ORDER Titration Protocol 50 MCG/HR Ibuprofen 400 mg 12/02/17 00:09 Motrin Tab PO Q6H PRN Fever >100.4 F Insulin Human Lispro 0 units 11/26/17 09:00 12/02/17 09:00 Humalog Low SC Not Given Q6H [facility] Protocol Levalbuterol HCl 0.63 mg 11/25/17 07:32 Xopenex IH TIDRESP PRN Shortness of Breath Levalbuterol HCl 0.63 mg 11/25/17 08:00 12/02/17 07:01 Xopenex IH 0.63 mg [id number] SHIV Administration Lorazepam 2 mg 12/02/17 08:00 Ativan IVP Q4H PRN Agitation Multivitamins/Minerals 1 tab 11/29/17 08:00 12/01/17 10:08 Therapeutic-M Tab PO 1 tab 0800 SHIV Administration Pantoprazole Sodium 40 mg 11/22/17 10:00 12/01/17 10:07 Protonix Inj IVP 40 mg DAILY SHIV Administration Thiamine HCl 100 mg 11/28/17 14:00 12/01/17 18:30 Vitamin B1 Tab PO 100 mg TID SHIV Administration Zinc Sulfate 220 mg 11/28/17 11:30 12/01/17 10:08 Zinc Sulfate 220 Mg Cap PO 220 mg DAILY SHIV Administration - Patient Studies Lab Studies: Microbiology Studies 11/30/17 21:45 Blood Culture - Preliminary Blood-Venous NO GROWTH AFTER 24 HOURS 11/30/17 22:00 Blood Culture - Preliminary Blood-Venous NO GROWTH AFTER 24 HOURS Lab Studies 12/02/17 12/02/17 12/02/17 Range/Units 08:51 07:00 07:00 WBC (4.5-11.0) 10^3/ul RBC (3.5-6.1) 10^6/uL Hgb (14.0-18.0) g/dL Hct (42.0-52.0) % MCV (80.0-105.0) fl MCH (25.0-35.0) pg MCHC (31.0-37.0) g/dl RDW (11.5-14.5) % Plt Count (120.0-450.0) 10^3/uL MPV (7.0-11.0) fl PT 15.0 H (9.4-12.5) SECONDS INR 1.30 H (0.93-1.08) Sodium 151 H (132-148) mmol/L Potassium 3.7 (3.6-5.0) mmol/L Chloride 113 H (98-107) mmol/L Carbon Dioxide 28 (21-33) mmol/L Anion Gap 14 (10-20) BUN 25 H (7-21) mg/dL Creatinine 0.9 (0.8-1.5) mg/dl Est GFR ( Amer) > 60 Est GFR (Non-Af Amer) > 60 POC Glucose (mg/dL) 92 (65-110) mg/dL Random Glucose 99 (70-110) mg/dL Calcium 9.3 (8.4-10.5) mg/dL Phosphorus 3.5 (2.5-4.5) mg/dL Magnesium 2.4 H (1.7-2.2) mg/dL Total Bilirubin 0.6 (0.2-1.3) mg/dL AST 38 (17-59) U/L ALT 69 H (7-56) U/L Alkaline Phosphatase 41 (38-126) U/L Total Protein 6.3 (5.8-8.3) g/dL Albumin 3.5 (3.0-4.8) g/dL Globulin 2.8 gm/dL Albumin/Globulin Ratio 1.3 (1.1-1.8) Procalcitonin (0.19-0.49) NG/ML Urine Color (YELLOW) Urine Appearance (CLEAR) Urine pH (4.7-8.0) Ur Specific Bieber (1.005-1.035) Urine Protein (<30 mg/dL) mg/dL Urine Glucose (UA) (NEGATIVE) mg/dL Urine Ketones (NEGATIVE) mg/dL Urine Blood (NEGATIVE) Urine Nitrate (NEGATIVE) Urine Bilirubin (NEGATIVE) Urine Urobilinogen (<1 E.U./dL) E.U./dL Ur Leukocyte Esterase (NEGATIVE) Chris/uL Urine RBC (0-2) /hpf Urine WBC (0-6) /hpf Ur Epithelial Cells (0-5) /hpf Urine Bacteria (NEG) 12/02/17 12/02/17 12/02/17 Range/Units 07:00 03:16 02:00 WBC 7.1 (4.5-11.0) 10^3/ul RBC 4.14 (3.5-6.1) 10^6/uL Hgb 12.1 L (14.0-18.0) g/dL Hct 38.9 L (42.0-52.0) % MCV 94.0 (80.0-105.0) fl MCH 29.2 (25.0-35.0) pg MCHC 31.1 (31.0-37.0) g/dl RDW 14.1 (11.5-14.5) % Plt Count 272 (120.0-450.0) 10^3/uL MPV 10.4 (7.0-11.0) fl PT (9.4-12.5) SECONDS INR (0.93-1.08) Sodium (132-148) mmol/L Potassium (3.6-5.0) mmol/L Chloride (98-107) mmol/L Carbon Dioxide (21-33) mmol/L Anion Gap (10-20) BUN (7-21) mg/dL Creatinine (0.8-1.5) mg/dl Est GFR ( Amer) Est GFR (Non-Af Amer) POC Glucose (mg/dL) 83 (65-110) mg/dL Random Glucose (70-110) mg/dL Calcium (8.4-10.5) mg/dL Phosphorus (2.5-4.5) mg/dL Magnesium (1.7-2.2) mg/dL Total Bilirubin (0.2-1.3) mg/dL AST (17-59) U/L ALT (7-56) U/L Alkaline Phosphatase (38-126) U/L Total Protein (5.8-8.3) g/dL Albumin (3.0-4.8) g/dL Globulin gm/dL Albumin/Globulin Ratio (1.1-1.8) Procalcitonin (0.19-0.49) NG/ML Urine Color Yellow (YELLOW) Urine Appearance Sl cloudy (CLEAR) Urine pH 6.0 (4.7-8.0) Ur Specific Bieber 1.025 (1.005-1.035) Urine Protein 30 H (<30 mg/dL) mg/dL Urine Glucose (UA) Negative (NEGATIVE) mg/dL Urine Ketones 15 H (NEGATIVE) mg/dL Urine Blood Large H (NEGATIVE) Urine Nitrate Negative (NEGATIVE) Urine Bilirubin Negative (NEGATIVE) Urine Urobilinogen 0.2 (<1 E.U./dL) E.U./dL Ur Leukocyte Esterase Negative (NEGATIVE) Chris/uL Urine RBC Tntc (0-2) /hpf Urine WBC 0 - 2 (0-6) /hpf Ur Epithelial Cells 0 - 2 (0-5) /hpf Urine Bacteria Few (NEG) 12/01/17 12/01/17 12/01/17 Range/Units 22:11 20:59 15:14 WBC (4.5-11.0) 10^3/ul RBC (3.5-6.1) 10^6/uL Hgb (14.0-18.0) g/dL Hct (42.0-52.0) % MCV (80.0-105.0) fl MCH (25.0-35.0) pg MCHC (31.0-37.0) g/dl RDW (11.5-14.5) % Plt Count (120.0-450.0) 10^3/uL MPV (7.0-11.0) fl PT (9.4-12.5) SECONDS INR (0.93-1.08) Sodium (132-148) mmol/L Potassium (3.6-5.0) mmol/L Chloride (98-107) mmol/L Carbon Dioxide (21-33) mmol/L Anion Gap (10-20) BUN (7-21) mg/dL Creatinine (0.8-1.5) mg/dl Est GFR ( Amer) Est GFR (Non-Af Amer) POC Glucose (mg/dL) 95 106 115 H (65-110) mg/dL Random Glucose (70-110) mg/dL Calcium (8.4-10.5) mg/dL Phosphorus (2.5-4.5) mg/dL Magnesium (1.7-2.2) mg/dL Total Bilirubin (0.2-1.3) mg/dL AST (17-59) U/L ALT (7-56) U/L Alkaline Phosphatase (38-126) U/L Total Protein (5.8-8.3) g/dL Albumin (3.0-4.8) g/dL Globulin gm/dL Albumin/Globulin Ratio (1.1-1.8) Procalcitonin (0.19-0.49) NG/ML Urine Color (YELLOW) Urine Appearance (CLEAR) Urine pH (4.7-8.0) Ur Specific Bieber (1.005-1.035) Urine Protein (<30 mg/dL) mg/dL Urine Glucose (UA) (NEGATIVE) mg/dL Urine Ketones (NEGATIVE) mg/dL Urine Blood (NEGATIVE) Urine Nitrate (NEGATIVE) Urine Bilirubin (NEGATIVE) Urine Urobilinogen (<1 E.U./dL) E.U./dL Ur Leukocyte Esterase (NEGATIVE) Chris/uL Urine RBC (0-2) /hpf Urine WBC (0-6) /hpf Ur Epithelial Cells (0-5) /hpf Urine Bacteria (NEG) 11/30/17 Range/Units 22:00 WBC (4.5-11.0) 10^3/ul RBC (3.5-6.1) 10^6/uL Hgb (14.0-18.0) g/dL Hct (42.0-52.0) % MCV (80.0-105.0) fl MCH (25.0-35.0) pg MCHC (31.0-37.0) g/dl RDW (11.5-14.5) % Plt Count (120.0-450.0) 10^3/uL MPV (7.0-11.0) fl PT (9.4-12.5) SECONDS INR (0.93-1.08) Sodium (132-148) mmol/L Potassium (3.6-5.0) mmol/L Chloride (98-107) mmol/L Carbon Dioxide (21-33) mmol/L Anion Gap (10-20) BUN (7-21) mg/dL Creatinine (0.8-1.5) mg/dl Est GFR ( Amer) Est GFR (Non-Af Amer) POC Glucose (mg/dL) (65-110) mg/dL Random Glucose (70-110) mg/dL Calcium (8.4-10.5) mg/dL Phosphorus (2.5-4.5) mg/dL Magnesium (1.7-2.2) mg/dL Total Bilirubin (0.2-1.3) mg/dL AST (17-59) U/L ALT (7-56) U/L Alkaline Phosphatase (38-126) U/L Total Protein (5.8-8.3) g/dL Albumin (3.0-4.8) g/dL Globulin gm/dL Albumin/Globulin Ratio (1.1-1.8) Procalcitonin 0.05 L (0.19-0.49) NG/ML Urine Color (YELLOW) Urine Appearance (CLEAR) Urine pH (4.7-8.0) Ur Specific Bieber (1.005-1.035) Urine Protein (<30 mg/dL) mg/dL Urine Glucose (UA) (NEGATIVE) mg/dL Urine Ketones (NEGATIVE) mg/dL Urine Blood (NEGATIVE) Urine Nitrate (NEGATIVE) Urine Bilirubin (NEGATIVE) Urine Urobilinogen (<1 E.U./dL) E.U./dL Ur Leukocyte Esterase (NEGATIVE) Chris/uL Urine RBC (0-2) /hpf Urine WBC (0-6) /hpf Ur Epithelial Cells (0-5) /hpf Urine Bacteria (NEG) Laboratory Results - last 24 hr 11/30/17 12/01/17 12/01/17 22:00 15:14 20:59 WBC RBC Hgb Hct MCV MCH MCHC RDW Plt Count MPV PT INR Sodium Potassium Chloride Carbon Dioxide Anion Gap BUN Creatinine Est GFR ( Amer) Est GFR (Non-Af Amer) POC Glucose (mg/dL) 115 H 106 Random Glucose Calcium Phosphorus Magnesium Total Bilirubin AST ALT Alkaline Phosphatase Total Protein Albumin Globulin Albumin/Globulin Ratio Procalcitonin 0.05 L Urine Color Urine Appearance Urine pH Ur Specific Bieber Urine Protein Urine Glucose (UA) Urine Ketones Urine Blood Urine Nitrate Urine Bilirubin Urine Urobilinogen Ur Leukocyte Esterase Urine RBC Urine WBC Ur Epithelial Cells Urine Bacteria 12/01/17 12/02/17 12/02/17 22:11 02:00 03:16 WBC RBC Hgb Hct MCV MCH MCHC RDW Plt Count MPV PT INR Sodium Potassium Chloride Carbon Dioxide Anion Gap BUN Creatinine Est GFR ( Amer) Est GFR (Non-Af Amer) POC Glucose (mg/dL) 95 83 Random Glucose Calcium Phosphorus Magnesium Total Bilirubin AST ALT Alkaline Phosphatase Total Protein Albumin Globulin Albumin/Globulin Ratio Procalcitonin Urine Color Yellow Urine Appearance Sl cloudy Urine pH 6.0 Ur Specific Bieber 1.025 Urine Protein 30 H Urine Glucose (UA) Negative Urine Ketones 15 H Urine Blood Large H Urine Nitrate Negative Urine Bilirubin Negative Urine Urobilinogen 0.2 Ur Leukocyte Esterase Negative Urine RBC Tntc Urine WBC 0 - 2 Ur Epithelial Cells 0 - 2 Urine Bacteria Few 12/02/17 12/02/17 12/02/17 07:00 07:00 07:00 WBC 7.1 RBC 4.14 Hgb 12.1 L Hct 38.9 L MCV 94.0 MCH 29.2 MCHC 31.1 RDW 14.1 Plt Count 272 MPV 10.4 PT 15.0 H INR 1.30 H Sodium 151 H Potassium 3.7 Chloride 113 H Carbon Dioxide 28 Anion Gap 14 BUN 25 H Creatinine 0.9 Est GFR ( Amer) > 60 Est GFR (Non-Af Amer) > 60 POC Glucose (mg/dL) Random Glucose 99 Calcium 9.3 Phosphorus 3.5 Magnesium 2.4 H Total Bilirubin 0.6 AST 38 ALT 69 H Alkaline Phosphatase 41 Total Protein 6.3 Albumin 3.5 Globulin 2.8 Albumin/Globulin Ratio 1.3 Procalcitonin Urine Color Urine Appearance Urine pH Ur Specific Bieber Urine Protein Urine Glucose (UA) Urine Ketones Urine Blood Urine Nitrate Urine Bilirubin Urine Urobilinogen Ur Leukocyte Esterase Urine RBC Urine WBC Ur Epithelial Cells Urine Bacteria 12/02/17 08:51 WBC RBC Hgb Hct MCV MCH MCHC RDW Plt Count MPV PT INR Sodium Potassium Chloride Carbon Dioxide Anion Gap BUN Creatinine Est GFR ( Amer) Est GFR (Non-Af Amer) POC Glucose (mg/dL) 92 Random Glucose Calcium Phosphorus Magnesium Total Bilirubin AST ALT Alkaline Phosphatase Total Protein Albumin Globulin Albumin/Globulin Ratio Procalcitonin Urine Color Urine Appearance Urine pH Ur Specific Bieber Urine Protein Urine Glucose (UA) Urine Ketones Urine Blood Urine Nitrate Urine Bilirubin Urine Urobilinogen Ur Leukocyte Esterase Urine RBC Urine WBC Ur Epithelial Cells Urine Bacteria Fingerstick Blood Sugar Results: 106 Review of Systems - Review of Systems Systems not reviewed;Unavailable: Altered Mental Status (sedated) Critical Care Progress Note - Restraints Justification for Restraints: High risk for self extubation, High risk for removing IV access, High risk for harming self - Prophylaxis GI Prophylaxis GI: PPI - Prophylaxis DVT Prophylaxis DVT: Heparin SQ - Nutrition Nutrition: Nutrition Category Date Time Status NPO Diet [DIET] Diets 11/21/17 Breakfast Ordered Assessment/Plan - Assessment and Plan (Free Text) Assessment: 62yo M with PMHx of Bipolar disorder and ETOH abuse in ICU for DTs 2/2 ETOH withdrawal. Patient initially admitted to psych for suicidal ideation then transferred to in-patient due to severe ETOH withdrawal with DTs requiring high- dose sedation and intubation. Rhabdomyolysis was also noted, but has improved. Plan: Neuro: - Intubated and sedated on fentanyl and precedex - will continue attempting to wean off precedex - Ativan prn decreased and SHIV cancelled to avoid over-sedation - Neuro consulted- recs appreciated - EEG done 11/28 and 12/01, pending official reads - will consider CT Head after EEG reports if patient remains altered - Continue CIWA protocol, seizure precaution, aspiration precaution - Head CT negative for acute pathology Cardio: - HD stable - Maintain MAP> 65mmHg - Elevated HR likely 2/2 withdrawals - Hydralazine PRN for BP control - Lopressor PRN added for HR and BP control Pulm: - Intubated- wean as tolerated - Protective lung ventilation strategy, HOB elevated - Xopenex PRN, SHIV d/c - Aspiration precautions - Maintain spO2>90% GI: - Tube feeds - Thiamine, Folic acid, and MV Heme: - Hgb stable - platelets stable Nephro: - Rhabdomyolysis- resolved - Hypernatremia, will start free water q6 - Will continue to monitor electrolytes and replace as needed - Continue to monitor I&O ID: - Fever yesterday, blood cultures and UA negative so far - No leukocytosis - No sign of infection at this time - Bacitracin, Zinc, MV and vit C for skin - ID consulted- recs appreciated Psych: - Hx of Bipolar - Psych consulted- recs appreciated - will evaluate once off of sedation GI ppx: Protonix DVT ppx: Heparin SC Diet: Tube feeds Dispo: Will try to wean off of sedation as tolerated. Will trial wean off vent daily. Patient was seen, examined, and discussed with attending, Dr. Dilan Traore PGY1 Pager [phone] <Cooper Kong - Last Filed: 12/02/17 10:46> CCU Objective - Vital Signs / Intake & Output Vital Signs (Last 4 hours): Vital Signs Pulse Resp BP Pulse Ox 12/02/17 10:34 113 H 180/103 H 12/02/17 09:00 115 H 153/102 H 98 12/02/17 08:57 102 H 12/02/17 08:35 23 100 12/02/17 08:02 102 H 160/90 H 100 12/02/17 08:00 106 H 100 02/13/18 07:00 82 110/62 100 Intake and Output (Last 8hrs): Intake & Output 12/01/17 12/02/17 12/02/17 22:59 06:59 14:59 Intake Total 960 623 Output Total 400 650 Balance 560 -27 Weight 162 lb 8 oz Intake: IV 450 623 Fentanyl 72 Left Wrist 350 precedex 345 Oral 0 Tube Feeding 360 0 TPN/PPN 0 Blood Product 0 Lipid 0 Albumin 0 Other 150 0 Output: Urine 400 650 Urine, Voided 400 650 Stool 0 Urine/Stool Mix 0 Emesis 0 Oral Regurgitation 0 Other 0 Other: # Voids Urine, Voided 0 # Bowel Movements 0 - Medications Active Medications: Active Medications Generic Name Dose Route Start Last Admin Trade Name Freq PRN Reason Stop Dose Admin Ascorbic Acid 500 mg 11/28/17 11:30 12/02/17 10:30 Vitamin C 500 Mg Tab PO 500 mg DAILY SHIV Administration Bacitracin 1 ea 11/28/17 08:51 11/28/17 09:34 Bacitracin TOP 1 ea Q6 PRN Administration Swelling Folic Acid 1 mg 12/01/17 10:15 12/02/17 10:29 Folic Acid PO 1 mg DAILY SHIV Administration Heparin Sodium (Porcine) 5,000 units 11/21/17 22:00 12/02/17 10:28 Heparin SC 5,000 units Q12 SHIV Administration Protocol Hydralazine HCl 10 mg 11/29/17 14:56 11/30/17 08:42 Apresoline IVP 10 mg Q6 PRN Administration give if SBP >160 Dexmedetomidine HCl 400 mcg in 100 mls @ 3.629 mls/hr 11/26/17 09:21 05:17 Precedex 4 Mcg/Ml (100 Ml) IV 1 mcg/kg/hr .Q24H PRN 18.144 mls/hr Agitation Administration Protocol 0.2 MCG/KG/HR Fentanyl Citrate 1,000 mcg in 100 mls @ 5 mls/hr 12/01/17 08:08 12/02/17 01: 00 Fentanyl Citrate/Sodium Chloride 1 Mg/100 Ml IV 70 mcg/hr .Q20H PRN 7 mls/hr TITRATE PER MD ORDER Titration Protocol 50 MCG/HR Ibuprofen 400 mg 12/02/17 00:09 Motrin Tab PO Q6H PRN Fever >100.4 F Insulin Human Lispro 0 units 11/26/17 09:00 12/02/17 09:00 Humalog Low SC Not Given Q6H [facility] Protocol Levalbuterol HCl 0.63 mg 12/02/17 09:55 Xopenex IH [id number] PRN Shortness of Breath Lorazepam 2 mg 12/02/17 08:00 Ativan IVP Q4H PRN Agitation Metoprolol Tartrate 5 mg 12/02/17 09:53 12/02/17 10:34 Lopressor IVP 5 mg Q6 PRN Administration Heart Rate Multivitamins/Minerals 1 tab 11/29/17 08:00 12/02/17 10:29 Therapeutic-M Tab PO 1 tab 0800 SHIV Administration Pantoprazole Sodium 40 mg 11/22/17 10:00 12/02/17 10:30 Protonix Inj IVP 40 mg DAILY SHIV Administration Thiamine HCl 100 mg 11/28/17 14:00 12/02/17 10:30 Vitamin B1 Tab PO 100 mg TID SHIV Administration Zinc Sulfate 220 mg 11/28/17 11:30 12/02/17 10:30 Zinc Sulfate 220 Mg Cap PO 220 mg DAILY SHIV Administration - Patient Studies Lab Studies: Microbiology Studies 11/30/17 21:45 Blood Culture - Preliminary Blood-Venous NO GROWTH AFTER 24 HOURS 11/30/17 22:00 Blood Culture - Preliminary Blood-Venous NO GROWTH AFTER 24 HOURS Lab Studies 12/02/17 12/02/17 12/02/17 Range/Units 08:51 07:00 07:00 WBC (4.5-11.0) 10^3/ul RBC (3.5-6.1) 10^6/uL Hgb (14.0-18.0) g/dL Hct (42.0-52.0) % MCV (80.0-105.0) fl MCH (25.0-35.0) pg MCHC (31.0-37.0) g/dl RDW (11.5-14.5) % Plt Count (120.0-450.0) 10^3/uL MPV (7.0-11.0) fl PT 15.0 H (9.4-12.5) SECONDS INR 1.30 H (0.93-1.08) Sodium 151 H (132-148) mmol/L Potassium 3.7 (3.6-5.0) mmol/L Chloride 113 H (98-107) mmol/L Carbon Dioxide 28 (21-33) mmol/L Anion Gap 14 (10-20) BUN 25 H (7-21) mg/dL Creatinine 0.9 (0.8-1.5) mg/dl Est GFR ( Amer) > 60 Est GFR (Non-Af Amer) > 60 POC Glucose (mg/dL) 92 (65-110) mg/dL Random Glucose 99 (70-110) mg/dL Calcium 9.3 (8.4-10.5) mg/dL Phosphorus 3.5 (2.5-4.5) mg/dL Magnesium 2.4 H (1.7-2.2) mg/dL Total Bilirubin 0.6 (0.2-1.3) mg/dL AST 38 (17-59) U/L ALT 69 H (7-56) U/L Alkaline Phosphatase 41 (38-126) U/L Total Protein 6.3 (5.8-8.3) g/dL Albumin 3.5 (3.0-4.8) g/dL Globulin 2.8 gm/dL Albumin/Globulin Ratio 1.3 (1.1-1.8) Procalcitonin (0.19-0.49) NG/ML Urine Color (YELLOW) Urine Appearance (CLEAR) Urine pH (4.7-8.0) Ur Specific Bieber (1.005-1.035) Urine Protein (<30 mg/dL) mg/dL Urine Glucose (UA) (NEGATIVE) mg/dL Urine Ketones (NEGATIVE) mg/dL Urine Blood (NEGATIVE) Urine Nitrate (NEGATIVE) Urine Bilirubin (NEGATIVE) Urine Urobilinogen (<1 E.U./dL) E.U./dL Ur Leukocyte Esterase (NEGATIVE) Chris/uL Urine RBC (0-2) /hpf Urine WBC (0-6) /hpf Ur Epithelial Cells (0-5) /hpf Urine Bacteria (NEG) 12/02/17 12/02/17 12/02/17 Range/Units 07:00 03:16 02:00 WBC 7.1 (4.5-11.0) 10^3/ul RBC 4.14 (3.5-6.1) 10^6/uL Hgb 12.1 L (14.0-18.0) g/dL Hct 38.9 L (42.0-52.0) % MCV 94.0 (80.0-105.0) fl MCH 29.2 (25.0-35.0) pg MCHC 31.1 (31.0-37.0) g/dl RDW 14.1 (11.5-14.5) % Plt Count 272 (120.0-450.0) 10^3/uL MPV 10.4 (7.0-11.0) fl PT (9.4-12.5) SECONDS INR (0.93-1.08) Sodium (132-148) mmol/L Potassium (3.6-5.0) mmol/L Chloride (98-107) mmol/L Carbon Dioxide (21-33) mmol/L Anion Gap (10-20) BUN (7-21) mg/dL Creatinine (0.8-1.5) mg/dl Est GFR ( Amer) Est GFR (Non-Af Amer) POC Glucose (mg/dL) 83 (65-110) mg/dL Random Glucose (70-110) mg/dL Calcium (8.4-10.5) mg/dL Phosphorus (2.5-4.5) mg/dL Magnesium (1.7-2.2) mg/dL Total Bilirubin (0.2-1.3) mg/dL AST (17-59) U/L ALT (7-56) U/L Alkaline Phosphatase (38-126) U/L Total Protein (5.8-8.3) g/dL Albumin (3.0-4.8) g/dL Globulin gm/dL Albumin/Globulin Ratio (1.1-1.8) Procalcitonin (0.19-0.49) NG/ML Urine Color Yellow (YELLOW) Urine Appearance Sl cloudy (CLEAR) Urine pH 6.0 (4.7-8.0) Ur Specific Bieber 1.025 (1.005-1.035) Urine Protein 30 H (<30 mg/dL) mg/dL Urine Glucose (UA) Negative (NEGATIVE) mg/dL Urine Ketones 15 H (NEGATIVE) mg/dL Urine Blood Large H (NEGATIVE) Urine Nitrate Negative (NEGATIVE) Urine Bilirubin Negative (NEGATIVE) Urine Urobilinogen 0.2 (<1 E.U./dL) E.U./dL Ur Leukocyte Esterase Negative (NEGATIVE) Chris/uL Urine RBC Tntc (0-2) /hpf Urine WBC 0 - 2 (0-6) /hpf Ur Epithelial Cells 0 - 2 (0-5) /hpf Urine Bacteria Few (NEG) 12/01/17 12/01/17 12/01/17 Range/Units 22:11 20:59 15:14 WBC (4.5-11.0) 10^3/ul RBC (3.5-6.1) 10^6/uL Hgb (14.0-18.0) g/dL Hct (42.0-52.0) % MCV (80.0-105.0) fl MCH (25.0-35.0) pg MCHC (31.0-37.0) g/dl RDW (11.5-14.5) % Plt Count (120.0-450.0) 10^3/uL MPV (7.0-11.0) fl PT (9.4-12.5) SECONDS INR (0.93-1.08) Sodium (132-148) mmol/L Potassium (3.6-5.0) mmol/L Chloride (98-107) mmol/L Carbon Dioxide (21-33) mmol/L Anion Gap (10-20) BUN (7-21) mg/dL Creatinine (0.8-1.5) mg/dl Est GFR ( Amer) Est GFR (Non-Af Amer) POC Glucose (mg/dL) 95 106 115 H (65-110) mg/dL Random Glucose (70-110) mg/dL Calcium (8.4-10.5) mg/dL Phosphorus (2.5-4.5) mg/dL Magnesium (1.7-2.2) mg/dL Total Bilirubin (0.2-1.3) mg/dL AST (17-59) U/L ALT (7-56) U/L Alkaline Phosphatase (38-126) U/L Total Protein (5.8-8.3) g/dL Albumin (3.0-4.8) g/dL Globulin gm/dL Albumin/Globulin Ratio (1.1-1.8) Procalcitonin (0.19-0.49) NG/ML Urine Color (YELLOW) Urine Appearance (CLEAR) Urine pH (4.7-8.0) Ur Specific Bieber (1.005-1.035) Urine Protein (<30 mg/dL) mg/dL Urine Glucose (UA) (NEGATIVE) mg/dL Urine Ketones (NEGATIVE) mg/dL Urine Blood (NEGATIVE) Urine Nitrate (NEGATIVE) Urine Bilirubin (NEGATIVE) Urine Urobilinogen (<1 E.U./dL) E.U./dL Ur Leukocyte Esterase (NEGATIVE) Chris/uL Urine RBC (0-2) /hpf Urine WBC (0-6) /hpf Ur Epithelial Cells (0-5) /hpf Urine Bacteria (NEG) 11/30/17 Range/Units 22:00 WBC (4.5-11.0) 10^3/ul RBC (3.5-6.1) 10^6/uL Hgb (14.0-18.0) g/dL Hct (42.0-52.0) % MCV (80.0-105.0) fl MCH (25.0-35.0) pg MCHC (31.0-37.0) g/dl RDW (11.5-14.5) % Plt Count (120.0-450.0) 10^3/uL MPV (7.0-11.0) fl PT (9.4-12.5) SECONDS INR (0.93-1.08) Sodium (132-148) mmol/L Potassium (3.6-5.0) mmol/L Chloride (98-107) mmol/L Carbon Dioxide (21-33) mmol/L Anion Gap (10-20) BUN (7-21) mg/dL Creatinine (0.8-1.5) mg/dl Est GFR ( Amer) Est GFR (Non-Af Amer) POC Glucose (mg/dL) (65-110) mg/dL Random Glucose (70-110) mg/dL Calcium (8.4-10.5) mg/dL Phosphorus (2.5-4.5) mg/dL Magnesium (1.7-2.2) mg/dL Total Bilirubin (0.2-1.3) mg/dL AST (17-59) U/L ALT (7-56) U/L Alkaline Phosphatase (38-126) U/L Total Protein (5.8-8.3) g/dL Albumin (3.0-4.8) g/dL Globulin gm/dL Albumin/Globulin Ratio (1.1-1.8) Procalcitonin 0.05 L (0.19-0.49) NG/ML Urine Color (YELLOW) Urine Appearance (CLEAR) Urine pH (4.7-8.0) Ur Specific Bieber (1.005-1.035) Urine Protein (<30 mg/dL) mg/dL Urine Glucose (UA) (NEGATIVE) mg/dL Urine Ketones (NEGATIVE) mg/dL Urine Blood (NEGATIVE) Urine Nitrate (NEGATIVE) Urine Bilirubin (NEGATIVE) Urine Urobilinogen (<1 E.U./dL) E.U./dL Ur Leukocyte Esterase (NEGATIVE) Chris/uL Urine RBC (0-2) /hpf Urine WBC (0-6) /hpf Ur Epithelial Cells (0-5) /hpf Urine Bacteria (NEG) Laboratory Results - last 24 hr 11/30/17 12/01/17 12/01/17 22:00 15:14 20:59 WBC RBC Hgb Hct MCV MCH MCHC RDW Plt Count MPV PT INR Sodium Potassium Chloride Carbon Dioxide Anion Gap BUN Creatinine Est GFR ( Amer) Est GFR (Non-Af Amer) POC Glucose (mg/dL) 115 H 106 Random Glucose Calcium Phosphorus Magnesium Total Bilirubin AST ALT Alkaline Phosphatase Total Protein Albumin Globulin Albumin/Globulin Ratio Procalcitonin 0.05 L Urine Color Urine Appearance Urine pH Ur Specific Bieber Urine Protein Urine Glucose (UA) Urine Ketones Urine Blood Urine Nitrate Urine Bilirubin Urine Urobilinogen Ur Leukocyte Esterase Urine RBC Urine WBC Ur Epithelial Cells Urine Bacteria 12/01/17 12/02/17 12/02/17 22:11 02:00 03:16 WBC RBC Hgb Hct MCV MCH MCHC RDW Plt Count MPV PT INR Sodium Potassium Chloride Carbon Dioxide Anion Gap BUN Creatinine Est GFR ( Amer) Est GFR (Non-Af Amer) POC Glucose (mg/dL) 95 83 Random Glucose Calcium Phosphorus Magnesium Total Bilirubin AST ALT Alkaline Phosphatase Total Protein Albumin Globulin Albumin/Globulin Ratio Procalcitonin Urine Color Yellow Urine Appearance Sl cloudy Urine pH 6.0 Ur Specific Bieber 1.025 Urine Protein 30 H Urine Glucose (UA) Negative Urine Ketones 15 H Urine Blood Large H Urine Nitrate Negative Urine Bilirubin Negative Urine Urobilinogen 0.2 Ur Leukocyte Esterase Negative Urine RBC Tntc Urine WBC 0 - 2 Ur Epithelial Cells 0 - 2 Urine Bacteria Few 12/02/17 12/02/17 12/02/17 07:00 07:00 07:00 WBC 7.1 RBC 4.14 Hgb 12.1 L Hct 38.9 L MCV 94.0 MCH 29.2 MCHC 31.1 RDW 14.1 Plt Count 272 MPV 10.4 PT 15.0 H INR 1.30 H Sodium 151 H Potassium 3.7 Chloride 113 H Carbon Dioxide 28 Anion Gap 14 BUN 25 H Creatinine 0.9 Est GFR ( Amer) > 60 Est GFR (Non-Af Amer) > 60 POC Glucose (mg/dL) Random Glucose 99 Calcium 9.3 Phosphorus 3.5 Magnesium 2.4 H Total Bilirubin 0.6 AST 38 ALT 69 H Alkaline Phosphatase 41 Total Protein 6.3 Albumin 3.5 Globulin 2.8 Albumin/Globulin Ratio 1.3 Procalcitonin Urine Color Urine Appearance Urine pH Ur Specific Bieber Urine Protein Urine Glucose (UA) Urine Ketones Urine Blood Urine Nitrate Urine Bilirubin Urine Urobilinogen Ur Leukocyte Esterase Urine RBC Urine WBC Ur Epithelial Cells Urine Bacteria 12/02/17 08:51 WBC RBC Hgb Hct MCV MCH MCHC RDW Plt Count MPV PT INR Sodium Potassium Chloride Carbon Dioxide Anion Gap BUN Creatinine Est GFR ( Amer) Est GFR (Non-Af Amer) POC Glucose (mg/dL) 92 Random Glucose Calcium Phosphorus Magnesium Total Bilirubin AST ALT Alkaline Phosphatase Total Protein Albumin Globulin Albumin/Globulin Ratio Procalcitonin Urine Color Urine Appearance Urine pH Ur Specific Bieber Urine Protein Urine Glucose (UA) Urine Ketones Urine Blood Urine Nitrate Urine Bilirubin Urine Urobilinogen Ur Leukocyte Esterase Urine RBC Urine WBC Ur Epithelial Cells Urine Bacteria Critical Care Progress Note - Nutrition Nutrition: Nutrition Category Date Time Status NPO Diet [DIET] Diets 11/21/17 Breakfast Ordered Assessment/Plan - Assessment and Plan (Free Text) Assessment: Pt seen and examined on rounds with resident, agree with note with following additions/exceptions: 62yo male with PMHx of heavy EtOH abuse a/w EtOH withdrawal, DTs, intubated. Patient with agitation, confusion, once off sedation. Very difficult to wean off ventilator 2/2 poor mental status. On Precedex drip, propofol off. CT head negative. EEG done read pending. Neurology following. May need trach. Delirium Tremens Alcohol Withdrawal Dehydration AMS Rhabdo, resolved Recommend: - cont with ventilatory support, daily sedation vacation, daily cpap trials - monitor off antibiotics, procal negative, cultures negative thus far, follow up repeat cultures, CXR clear - IVF hydration, 1/2NS, free water flushes - Thiamine, Folic, MVT - Precedex drip - follow up Psych - neurology consult, EEG, ?repeat CT head - Feeds - GI ppx - DVT ppx - Monitor in MICU
[2017-12-02] MEDS ORDERED: Metoprolol 1 mg/ml Inj IVP PRN (09:53)
[2017-12-02] MEDS: Multivitamin With Minerals Tab PO SCH (10:29)
[2017-12-02 13:15] LABS: CK-MB 1.4 ng/mL (0.0-3.6)
[2017-12-02] MEDS: Levalbuterol 0.63 MG/3 ML Inhal Soln UD IH PRN ×2 (13:39→20:40)
--- NOTE | 2017-12-02 13:46 | CP.PCM.PN ---
<Sarkis Fuentes - Last Filed: 12/02/17 14:08> Subjective - Date & Time of Evaluation Date of Evaluation: 12/02/17 Time of Evaluation: 07:10 - Subjective Subjective: Medicine progress note for Dr. Samantha Tabor Hospitalist Service: Patient seen and examined. Patient remains intubated and sedated. Patient is still tremulous despite sedation. Patient had fever overnight 101.2 degrees. ROS is unable to be obtained. Objective - Vital Signs/Intake and Output Vital Signs (last 24 hours): Temp Pulse Resp BP Pulse Ox 99.9 F H 105 H 23 170/103 H 98 12/02/17 04:00 12/02/17 12:56 12/02/17 08:35 12/02/17 12:56 12/02/17 12:00 Intake and Output: 12/02/17 12/02/17 06:59 18:59 Intake Total 723 107 Output Total 650 Balance 73 107 - Medications Medications: Current Medications Ascorbic Acid (Vitamin C 500 Mg Tab) 500 mg PO DAILY [facility] Last Admin: 12/02/17 10:30 Dose: 500 mg Bacitracin (Bacitracin) 1 ea TOP Q6 PRN PRN Reason: Swelling Last Admin: 11/28/17 09:34 Dose: 1 ea Folic Acid (Folic Acid) 1 mg PO DAILY [facility] Last Admin: 12/02/17 10:29 Dose: 1 mg Heparin Sodium (Porcine) (Heparin) 5,000 units SC Q12 SHIV PRN Reason: Protocol Last Admin: 12/02/17 10:28 Dose: 5,000 units Hydralazine HCl (Apresoline) 10 mg IVP Q6 PRN PRN Reason: give if SBP >160 Last Admin: 12/02/17 12:56 Dose: 10 mg Dexmedetomidine HCl (Precedex 4 Mcg/Ml (100 Ml)) 400 mcg in 100 mls @ 3.629 mls /hr IV .Q24H PRN; Protocol; 0.2 MCG/KG/HR PRN Reason: Agitation Last Admin: 12/02/17 12:47 Dose: 1.5 mcg/kg/hr, 27.216 mls/hr Fentanyl Citrate (Fentanyl Citrate/Sodium Chloride 1 Mg/100 Ml) 1,000 mcg in 100 mls @ 5 mls/hr IV .Q20H PRN; Protocol; 50 MCG/HR PRN Reason: TITRATE PER MD ORDER Last Admin: 12/02/17 11:28 Dose: 70 mcg/hr, 7 mls/hr Ibuprofen (Motrin Tab) 400 mg PO Q6H PRN PRN Reason: Fever >100.4 F Insulin Human Lispro (Humalog Low) 0 units SC Q6H SHIV PRN Reason: Protocol Last Admin: 12/02/17 09:00 Dose: Not Given Levalbuterol HCl (Xopenex) 0.63 mg IH [id number] PRN PRN Reason: Shortness of Breath Last Admin: 12/02/17 13:39 Dose: 0.63 mg Lorazepam (Ativan) 2 mg IVP Q4H PRN PRN Reason: Agitation Metoprolol Tartrate (Lopressor) 5 mg IVP Q6 PRN PRN Reason: Heart Rate Last Admin: 12/02/17 10:34 Dose: 5 mg Multivitamins/Minerals (Therapeutic-M Tab) 1 tab PO 0800 [facility] Last Admin: 12/02/17 10:29 Dose: 1 tab Pantoprazole Sodium (Protonix Inj) 40 mg IVP DAILY [facility] Last Admin: 12/02/17 10:30 Dose: 40 mg Thiamine HCl (Vitamin B1 Tab) 100 mg PO TID [facility] Last Admin: 12/02/17 10:30 Dose: 100 mg Zinc Sulfate (Zinc Sulfate 220 Mg Cap) 220 mg PO DAILY [facility] Last Admin: 12/02/17 10:30 Dose: 220 mg - Labs Labs: 12/02/17 07:00 12/02/17 07:00 PT 15.0 SECONDS (9.4-12.5) H 12/02/17 07:00 INR 1.30 (0.93-1.08) H 12/02/17 07:00 - Constitutional Appears: Chronically Ill - Head Exam Head Exam: ATRAUMATIC, NORMOCEPHALIC - Eye Exam Eye Exam: EOMI, Normal appearance - ENT Exam ENT Exam: Mucous Membranes Moist Additional comments: OGT and endotracheal tube in place - Respiratory Exam Respiratory Exam: Decreased Breath Sounds. absent: Rales, Rhonchi, Wheezes - Cardiovascular Exam Cardiovascular Exam: Tachycardia, +S1, +S2 - GI/Abdominal Exam GI & Abdominal Exam: Soft, Normal Bowel Sounds. absent: Distended, Firm - Extremities Exam Extremities Exam: absent: Pedal Edema - Neurological Exam Neurological Exam: Altered - Skin Skin Exam: Intact, Warm Assessment and Plan - Assessment and Plan (Free Text) Assessment: 62 year old male with PMHx of Bipolar disorder and ETOH abuse in ICU for DTs. Patient initially admitted to psych for suicidal ideation then transferred to in -patient due to severe ETOH withdrawal with DTs requiring high-dose sedation and intubation. Will follow up EEG. 1. ETOH withdrawal with Delirium Tremens - Intubated and sedated currently on Fentanyl drip and weaning off Precedex as tolerated. - Neuro consulted- recs appreciated- recommend EEG, will follow up - Continue CIWA protocol, seizure precaution, aspiration precaution - Ativan 4 mg IV prn agitation and 2 mg IV TID scheduled - Head CT negative for acute pathology 2. Altered Mental Status, currently being sedated for DT's - CT head was unremarkable - thiamine increased to protect against encephalopathy - neuro consulted, Dr. Rosenberg, appreciate recs 3. Blisters on hands (not affecting IV lines) - Multivitamin, vit C and Zinc added - Bacitracin ointment to be applied 4. Possible Rhabdomyolysis, improving with sedation - likely secondary to DT's - renal function has not been affected - Continue hydration - Ordered CPK - will monitor 5. Fever of unknown origin - Possibly secondary to ETOH withdrawals - ID consult, appreciate recs - Febrile overnight - Follow up septic workup 6. Electrolyte imbalance - monitor and replete as needed - Rhabdomyolysis- resolved 7. Prophylaxis - SCDs - Aspiration precautions - Seizure precautions - Heparin SC - Protonix Disposition: Remains intubated for now. ICU team will continue to attempt weaning of sedation and ventilator. Discussed and seen with hospitalist Dr. Samantha Tabor <Samantha Tabor - Last Filed: 12/03/17 16:11> Objective - Vital Signs/Intake and Output Vital Signs (last 24 hours): Temp Pulse Resp BP Pulse Ox 101.3 F H 94 H 23 129/69 98 12/03/17 14:43 12/03/17 14:43 12/03/17 14:34 12/03/17 14:43 12/03/17 14:43 Intake and Output: 12/03/17 12/03/17 06:59 18:59 Intake Total 1460 310 Output Total 200 Balance 1260 310 - Medications Medications: Current Medications Ascorbic Acid (Vitamin C 500 Mg Tab) 500 mg PO DAILY [facility] Last Admin: 12/03/17 10:29 Dose: 500 mg Bacitracin (Bacitracin) 1 ea TOP Q6 PRN PRN Reason: Swelling Last Admin: 11/28/17 09:34 Dose: 1 ea Folic Acid (Folic Acid) 1 mg PO DAILY [facility] Last Admin: 12/03/17 10:30 Dose: 1 mg Heparin Sodium (Porcine) (Heparin) 5,000 units SC Q8 SHIV PRN Reason: Protocol Last Admin: 12/03/17 13:19 Dose: 5,000 units Hydralazine HCl (Apresoline) 10 mg IVP Q6 PRN PRN Reason: give if SBP >160 Last Admin: 12/02/17 12:56 Dose: 10 mg Dexmedetomidine HCl (Precedex 4 Mcg/Ml (100 Ml)) 400 mcg in 100 mls @ 3.629 mls /hr IV .Q24H PRN; Protocol; 0.2 MCG/KG/HR PRN Reason: Agitation Last Admin: 12/03/17 14:41 Dose: 1.5 mcg/kg/hr, 27.216 mls/hr Fentanyl Citrate (Fentanyl Citrate/Sodium Chloride 1 Mg/100 Ml) 1,000 mcg in 100 mls @ 5 mls/hr IV .Q20H PRN; Protocol; 50 MCG/HR PRN Reason: TITRATE PER MD ORDER Last Titration: 12/03/17 15:08 Dose: 100 mcg/hr, 10 mls/hr Acetaminophen (Ofirmev) 1,000 mg in 100 mls @ 400 mls/hr IVPB Q6H PRN PRN Reason: fever Stop: 12/05/17 08:38 Last Admin: 12/03/17 10:46 Dose: 400 mls/hr Lactated Ringer's (Lactated Ringer's) 1,000 mls @ 150 mls/hr IV .Q6H40M [facility] Last Admin: 12/03/17 12:58 Dose: 150 mls/hr Levetiracetam 750 mg/ Sodium (Chloride) 107.5 mls @ 460 mls/hr IV Q12 [facility] Last Admin: 12/03/17 13:13 Dose: 460 mls/hr Insulin Human Lispro (Humalog Low) 0 units SC Q6H SHIV PRN Reason: Protocol Last Admin: 12/03/17 10:22 Dose: Not Given Levalbuterol HCl (Xopenex) 0.63 mg IH [id number] PRN PRN Reason: Shortness of Breath Last Admin: 12/03/17 13:48 Dose: 0.63 mg Lorazepam (Ativan) 4 mg IVP Q4H PRN PRN Reason: Agitation Last Admin: 12/03/17 13:18 Dose: 4 mg Metoprolol Tartrate (Lopressor) 5 mg IVP Q4 [facility] Last Admin: 12/03/17 13:19 Dose: 5 mg Multivitamins/Minerals (Therapeutic-M Tab) 1 tab PO 0800 [facility] Last Admin: 12/03/17 10:29 Dose: 1 tab Pantoprazole Sodium (Protonix Inj) 40 mg IVP DAILY [facility] Last Admin: 12/03/17 10:30 Dose: 40 mg Thiamine HCl (Vitamin B1 Tab) 100 mg PO TID [facility] Last Admin: 12/03/17 13:18 Dose: 100 mg Zinc Sulfate (Zinc Sulfate 220 Mg Cap) 220 mg PO DAILY [facility] Last Admin: 12/03/17 10:29 Dose: 220 mg - Labs Labs: 12/03/17 05:30 12/03/17 14:20 PT 15.4 SECONDS (9.4-12.5) H 12/03/17 05:30 INR 1.33 (0.93-1.08) H 12/03/17 05:30 Attending/Attestation - Attestation I have personally seen and examined this patient.: Yes I have fully participated in the care of the patient.: Yes I have reviewed all pertinent clinical information, including history, physical exam and plan: Yes Notes (Text): I have seen and examined the patient at bedside. Agree with the above note with the following additions/ exceptions: Briefly this is 62 year old male with history of bipolar disorder and chronic alcohol abuse who was admitted for alcohol withdrawal and is now manifesting severe alcohol withdrawal and delerium Tremens. He is diaphoretic, agitated, restless, tachycardic, hypertensive and hyperthermic. He has been having fever. Alternate diagnosis need to be ruled out. Will discuss with ID. Cultures and procal negative. Patient is not on antibiotics at this time. UDS negative. Will check CK. Patient is intubated and sedated. Weaning trial per ICU team. CT head was negative. Will continue Ativan. EEG pending. He has transaminitis due to alcohol abuse. Upon discharge patient will follow up in [facility] clinic. Dr Samantha Tabor
[2017-12-02] MEDS ORDERED: Metoprolol 1 mg/ml Inj IVP STA (14:36)
[2017-12-02] MEDS: Metoprolol 1 mg/ml Inj IVP SCH ×2 (17:25→21:03)
--- NOTE | 2017-12-02 23:07 | CP.PCM.PN ---
Subjective - Date & Time of Evaluation Date of Evaluation: 12/02/17 Time of Evaluation: 21:15 - Subjective Subjective: Infectious Disease Follow Up: December 02, 2017 62 yo male with medical history that includes Bipolar disorder and alcohol abuse presented with EtOH intoxication and now in withdrawals. Originally in the psych floor for bipolar disease treatment and suicidal ideation on 11/21/2017. The patient required intubation. ID called for possible aspiration pneumonia. No fevers, leukocytosis at this time. Remains intubated. Still no fevers or leukocytosis. Remains sedated. Noted blistered skin on right hand that slightly improved. Episode of fevers up to 102.5F overnight. Still no leukocytosis. Cultures from 11/30/2017 negative. New cultures sent 12/01-. Multiple blisters on the right hand. Fluid filler and dark in color. Patient highly agitated on attempts to wean sedation. No new issues. Difficult extubation. Patient severely agitated when taken off sedation. Objective - Vital Signs/Intake and Output Vital Signs (last 24 hours): Temp Pulse Resp BP Pulse Ox 99.9 F H 90 23 126/111 H 100 12/02/17 04:00 12/02/17 21:03 12/02/17 08:35 12/02/17 21:03 12/02/17 18:00 Intake and Output: 12/02/17 12/03/17 18:59 06:59 Intake Total 207 200 Balance 207 200 - Medications Medications: Current Medications Ascorbic Acid (Vitamin C 500 Mg Tab) 500 mg PO DAILY [facility] Last Admin: 12/02/17 10:30 Dose: 500 mg Bacitracin (Bacitracin) 1 ea TOP Q6 PRN PRN Reason: Swelling Last Admin: 11/28/17 09:34 Dose: 1 ea Folic Acid (Folic Acid) 1 mg PO DAILY [facility] Last Admin: 12/02/17 10:29 Dose: 1 mg Heparin Sodium (Porcine) (Heparin) 5,000 units SC Q12 SHIV PRN Reason: Protocol Last Admin: 12/02/17 21:56 Dose: 5,000 units Hydralazine HCl (Apresoline) 10 mg IVP Q6 PRN PRN Reason: give if SBP >160 Last Admin: 12/02/17 12:56 Dose: 10 mg Dexmedetomidine HCl (Precedex 4 Mcg/Ml (100 Ml)) 400 mcg in 100 mls @ 3.629 mls /hr IV .Q24H PRN; Protocol; 0.2 MCG/KG/HR PRN Reason: Agitation Last Admin: 12/02/17 19:56 Dose: 1.5 mcg/kg/hr, 27.216 mls/hr Fentanyl Citrate (Fentanyl Citrate/Sodium Chloride 1 Mg/100 Ml) 1,000 mcg in 100 mls @ 5 mls/hr IV .Q20H PRN; Protocol; 50 MCG/HR PRN Reason: TITRATE PER MD ORDER Last Admin: 12/02/17 22:49 Dose: 70 mcg/hr, 7 mls/hr Ibuprofen (Motrin Tab) 400 mg PO Q6H PRN PRN Reason: Fever >100.4 F Insulin Human Lispro (Humalog Low) 0 units SC Q6H SHIV PRN Reason: Protocol Last Admin: 12/02/17 21:12 Dose: Not Given Levalbuterol HCl (Xopenex) 0.63 mg IH [id number] PRN PRN Reason: Shortness of Breath Last Admin: 12/02/17 13:39 Dose: 0.63 mg Lorazepam (Ativan) 4 mg IVP Q4H PRN PRN Reason: Agitation Metoprolol Tartrate (Lopressor) 5 mg IVP Q4 [facility] Last Admin: 12/02/17 21:03 Dose: 5 mg Multivitamins/Minerals (Therapeutic-M Tab) 1 tab PO 0800 [facility] Last Admin: 12/02/17 10:29 Dose: 1 tab Pantoprazole Sodium (Protonix Inj) 40 mg IVP DAILY [facility] Last Admin: 12/02/17 10:30 Dose: 40 mg Thiamine HCl (Vitamin B1 Tab) 100 mg PO TID [facility] Last Admin: 12/02/17 17:25 Dose: 100 mg Zinc Sulfate (Zinc Sulfate 220 Mg Cap) 220 mg PO DAILY [facility] Last Admin: 12/02/17 10:30 Dose: 220 mg - Labs Labs: 12/02/17 07:00 12/02/17 07:00 PT 15.0 SECONDS (9.4-12.5) H 12/02/17 07:00 INR 1.30 (0.93-1.08) H 12/02/17 07:00 - Constitutional Appears: Non-toxic, No Acute Distress, Chronically Ill - Head Exam Additional comments: intubated and sedated. - Eye Exam Eye Exam: EOMI, PERRL Pupil Exam: NORMAL ACCOMODATION, PERRL - ENT Exam ENT Exam: Mucous Membranes Moist, Normal External Ear Exam, TM's Normal Bilaterally - Neck Exam Neck Exam: Full ROM, Normal Inspection - Respiratory Exam Respiratory Exam: Clear to Ausculation Bilateral, NORMAL BREATHING PATTERN. absent: Rales, Rhonchi, Wheezes - Cardiovascular Exam Cardiovascular Exam: REGULAR RHYTHM, RRR, +S1, +S2 - GI/Abdominal Exam GI & Abdominal Exam: Soft, Normal Bowel Sounds. absent: Distended, Tenderness - Extremities Exam Extremities Exam: Joint Swelling, Pedal Edema Additional comments: multiple blisters on the right hand. +2-3 edema of the extremities. - Neurological Exam Additional comments: intubated and ventilated. - Psychiatric Exam Additional comments: intubated and ventilated. - Skin Skin Exam: Intact, Normal Color Assessment and Plan - Assessment and Plan (Free Text) Assessment: 62 yo male with EtOH abuse. Developed EtOH withdrawal and now required intubation and ventilation. The patient was being evaluated by ID for potential aspiration. The patient is currently on Cefepime and Vancomycin. If aspiration is a significant concern, would either add Flagyl IV or switch Cefepime to Meropenem or Zosyn. Febrile several days ago up to 102 F. Afebrile the last few days. No leukocytosis. No findings on Chest X-ray. Supportive care. Procalcitonin is 0.14 which is low. Noted procalcitonin repeated. More likely secondary to the EtOH withdrawal and Delirium Tremens. Case discussed with team. Off antibiotics now. Will Monitor. Difficult extubation/wean from ventilation. Agitation when off sedation. Fever up to 102.5 F overnight. Repeat cultures with next fever. Check urinalysis and urine culture. 11/30/2017 cultures negative so far. 12/01/2017 cultures pending. Fever uptrending. Supportive care. Thank you for allowing me to participate in the care of the patient, we will follow with you.
[2017-12-03] MEDS: Dexmedetomidine 400mcg/100mL 400 MCG/100 ML BOTTLE IV PRN ×6 (02:37→23:58)
[2017-12-03] MEDS: Insulin Lispro (humaLOG) LOW Coverage SC SCH ×4 (03:24→22:05)
[2017-12-03] MEDS: Metoprolol 1 mg/ml Inj IVP SCH ×6 (04:00→20:25)
[2017-12-03 07:13] LABS: HEMOGLOBIN 11.4 g/dL (14.0-18.0); MEAN CELL VOLUME 95.1 fl (80.0-105.0); MEAN CORPUSCULAR HEMOGLOBIN 29.7 pg (25.0-35.0); MEAN CORPUSCULAR HGB CONC 31.2 g/dl (31.0-37.0); RBC 3.84 10^6/uL (3.5-6.1); RED CELL DISTRIBUTION WIDTH 14.3 % (11.5-14.5); WHITE BLOOD COUNT 7.7 10^3/ul (4.5-11.0)
[2017-12-03] MEDS: Levalbuterol 0.63 MG/3 ML Inhal Soln UD IH PRN ×2 (07:18→13:48)
[2017-12-03 07:25] LABS: INR 1.33 (0.93-1.08); PROTHROMBIN TIME 15.4 SECONDS (9.4-12.5)
[2017-12-03 07:35] LABS: ALB/GLOB RATIO 1.3 (1.1-1.8); ALBUMIN 3.3 g/dL (3.0-4.8); ALT/SGPT 70 U/L (7-56); AST/SGOT 52 U/L (17-59); BLOOD UREA NITROGEN 33 mg/dL (7-21); CALCIUM 9.4 mg/dL (8.4-10.5); GFR AFRICAN-AMERICAN > 60; GFR NON-AFRICAN AMERICAN > 60; MAGNESIUM 2.4 mg/dL (1.7-2.2)
--- NOTE | 2017-12-03 07:46 | CP.CCUPN ---
<Singh Traore - Last Filed: 12/03/17 11:41> CCU Subjective - Physician Review Subjective (Free Text): Singh Traore PGY1 ICU Note for Dr. Velez Patient was seen and examined in ICU. Remains sedated and intubated on vent. overnight, the patient was noted to be more comfortable and VS stable, however, this morning he seems more restless. Mackenzie catheter in place. Patient had fevers with Tmax 101.8 over the past 24 hrs, UA and cultures were sent, however , work up so far is negative. ROS could not be obtained. CCU Objective - Vital Signs / Intake & Output Vital Signs (Last 4 hours): Vital Signs Temp Pulse Resp BP Pulse Ox 12/03/17 07:24 32 H 100 12/03/17 06:00 100.2 F H 100 H 119/105 H 100 12/03/17 05:00 100.4 F H 67 99/56 L 100 12/03/17 04:00 100.6 F H 68 99/54 L 100 Intake and Output (Last 8hrs): Intake & Output 12/02/17 12/03/17 12/03/17 22:59 06:59 14:59 Intake Total 200 1260 Output Total 200 Balance 200 1060 Intake: IV 200 720 Fentanyl 84 precedex 336 Tube Feeding 540 Output: Urine 200 Urine, Voided 200 - Physical Exam Physical Exam Limitations: Positive for: Altered Mental Status Head: Positive for: Atraumatic, Normocephalic Pupils: Positive for: PERRL Conjunctiva: Positive for: Normal. Negative for: Injected, Icteric Ears: Positive for: Normal Mouth: Positive for: Normal Teeth, Other (mild dry oral mucosa, ET/OG tube in place) Pharnyx: Positive for: Normal Nose (External): Positive for: Atraumatic Nose (Internal): Positive for: Normal Inspection Neck: Negative for: JVD Respiratory/Chest: Positive for: Good Air Exchange, Other (intubated on vent). Negative for: Respiratory Distress, Accessory Muscle Use, Wheezes, Rales, Retracting, Rhonchi, Tachypneic Cardiovascular: Positive for: Normal S1, S2, Tachycardic. Negative for: Murmurs Abdomen: Positive for: Normal Bowel Sounds. Negative for: Tenderness, Distention, Peritoneal Signs, Rebound, Guarding Genitourinary Male: Positive for: Other (mackenzie catheter in place ) Back: Positive for: Normal Inspection. Negative for: Midline Tenderness Upper Extremity: Positive for: Normal Inspection, NORMAL PULSES. Negative for: Cyanosis, Edema Lower Extremity: Positive for: Normal Inspection, NORMAL PULSES. Negative for: Edema Neurological: Positive for: Other (sedated on fentanyl and precedex ) Skin: Positive for: Warm, Normal Color, Diaphoretic Psychiatric: Positive for: Other (sedated). Negative for: Alert, Oriented x 3, Normal Insight, Normal Concentration - Medications Active Medications: Active Medications Generic Name Dose Route Start Last Admin Trade Name Freq PRN Reason Stop Dose Admin Ascorbic Acid 500 mg 11/28/17 11:30 12/02/17 10:30 Vitamin C 500 Mg Tab PO 500 mg DAILY SHIV Administration Bacitracin 1 ea 11/28/17 08:51 11/28/17 09:34 Bacitracin TOP 1 ea Q6 PRN Administration Swelling Folic Acid 1 mg 12/01/17 10:15 12/02/17 10:29 Folic Acid PO 1 mg DAILY SHIV Administration Heparin Sodium (Porcine) 5,000 units 11/21/17 22:00 12/02/17 21:56 Heparin SC 5,000 units Q12 SHIV Administration Protocol Hydralazine HCl 10 mg 11/29/17 14:56 12/02/17 12:56 Apresoline IVP 10 mg Q6 PRN Administration give if SBP >160 Dexmedetomidine HCl 400 mcg in 100 mls @ 3.629 mls/hr 11/26/17 09:21 06:23 Precedex 4 Mcg/Ml (100 Ml) IV 1.5 mcg/kg/hr .Q24H PRN 27.216 mls/hr Agitation Administration Protocol 0.2 MCG/KG/HR Fentanyl Citrate 1,000 mcg in 100 mls @ 5 mls/hr 12/01/17 08:08 12/02/17 22: 49 Fentanyl Citrate/Sodium Chloride 1 Mg/100 Ml IV 70 mcg/hr .Q20H PRN 7 mls/hr TITRATE PER MD ORDER Administration Protocol 50 MCG/HR Ibuprofen 400 mg 12/02/17 00:09 12/02/17 22:58 Motrin Tab PO 400 mg Q6H PRN Administration Fever >100.4 F Insulin Human Lispro 0 units 11/26/17 09:00 12/03/17 03:24 Humalog Low SC Not Given Q6H [facility] Protocol Levalbuterol HCl 0.63 mg 12/02/17 09:55 12/03/17 07:18 Xopenex IH 0.63 mg [id number] PRN Administration Shortness of Breath Lorazepam 4 mg 12/02/17 15:25 12/02/17 23:00 Ativan IVP 4 mg Q4H PRN Administration Agitation Metoprolol Tartrate 5 mg 12/02/17 16:00 12/03/17 04:00 Lopressor IVP Not Given Q4 SHIV Multivitamins/Minerals 1 tab 11/29/17 08:00 12/02/17 10:29 Therapeutic-M Tab PO 1 tab 0800 SHIV Administration Pantoprazole Sodium 40 mg 11/22/17 10:00 12/02/17 10:30 Protonix Inj IVP 40 mg DAILY SHIV Administration Thiamine HCl 100 mg 11/28/17 14:00 12/02/17 17:25 Vitamin B1 Tab PO 100 mg TID SHIV Administration Zinc Sulfate 220 mg 11/28/17 11:30 12/02/17 10:30 Zinc Sulfate 220 Mg Cap PO 220 mg DAILY SHIV Administration - Patient Studies Lab Studies: Microbiology Studies 12/02/17 03:30 Blood Culture - Preliminary Blood-Venous NO GROWTH AFTER 24 HOURS 12/02/17 03:00 Blood Culture - Preliminary Blood-Venous NO GROWTH AFTER 24 HOURS 11/30/17 21:45 Blood Culture - Preliminary Blood-Venous NO GROWTH AFTER 48 HOURS 11/30/17 22:00 Blood Culture - Preliminary Blood-Venous NO GROWTH AFTER 48 HOURS Lab Studies 12/03/17 12/03/17 12/03/17 Range/Units 05:30 05:30 05:30 WBC 7.7 (4.5-11.0) 10^3/ul RBC 3.84 (3.5-6.1) 10^6/uL Hgb 11.4 L (14.0-18.0) g/dL Hct 36.5 L (42.0-52.0) % MCV 95.1 (80.0-105.0) fl MCH 29.7 (25.0-35.0) pg MCHC 31.2 (31.0-37.0) g/dl RDW 14.3 (11.5-14.5) % Plt Count 262 (120.0-450.0) 10^3/uL MPV 11.0 (7.0-11.0) fl PT 15.4 H (9.4-12.5) SECONDS INR 1.33 H (0.93-1.08) Sodium 152 H (132-148) mmol/L Potassium 3.9 (3.6-5.0) mmol/L Chloride 114 H (98-107) mmol/L Carbon Dioxide 27 (21-33) mmol/L Anion Gap 15 (10-20) BUN 33 H (7-21) mg/dL Creatinine 1.0 (0.8-1.5) mg/dl Est GFR ( Amer) > 60 Est GFR (Non-Af Amer) > 60 POC Glucose (mg/dL) (65-110) mg/dL Random Glucose 123 H (70-110) mg/dL Calcium 9.4 (8.4-10.5) mg/dL Phosphorus 4.5 (2.5-4.5) mg/dL Magnesium 2.4 H (1.7-2.2) mg/dL Total Bilirubin 0.7 (0.2-1.3) mg/dL AST 52 (17-59) U/L ALT 70 H (7-56) U/L Alkaline Phosphatase 36 L (38-126) U/L Total Creatine Kinase (35-230) U/L CK-MB (CK-2) (0.0-3.6) ng/mL CK-MB (CK-2) % Total Protein 5.9 (5.8-8.3) g/dL Albumin 3.3 (3.0-4.8) g/dL Globulin 2.6 gm/dL Albumin/Globulin Ratio 1.3 (1.1-1.8) 12/03/17 12/02/17 12/02/17 Range/Units 03:23 21:11 14:57 WBC (4.5-11.0) 10^3/ul RBC (3.5-6.1) 10^6/uL Hgb (14.0-18.0) g/dL Hct (42.0-52.0) % MCV (80.0-105.0) fl MCH (25.0-35.0) pg MCHC (31.0-37.0) g/dl RDW (11.5-14.5) % Plt Count (120.0-450.0) 10^3/uL MPV (7.0-11.0) fl PT (9.4-12.5) SECONDS INR (0.93-1.08) Sodium (132-148) mmol/L Potassium (3.6-5.0) mmol/L Chloride (98-107) mmol/L Carbon Dioxide (21-33) mmol/L Anion Gap (10-20) BUN (7-21) mg/dL Creatinine (0.8-1.5) mg/dl Est GFR ( Amer) Est GFR (Non-Af Amer) POC Glucose (mg/dL) 106 110 90 (65-110) mg/dL Random Glucose (70-110) mg/dL Calcium (8.4-10.5) mg/dL Phosphorus (2.5-4.5) mg/dL Magnesium (1.7-2.2) mg/dL Total Bilirubin (0.2-1.3) mg/dL AST (17-59) U/L ALT (7-56) U/L Alkaline Phosphatase (38-126) U/L Total Creatine Kinase (35-230) U/L CK-MB (CK-2) (0.0-3.6) ng/mL CK-MB (CK-2) % Total Protein (5.8-8.3) g/dL Albumin (3.0-4.8) g/dL Globulin gm/dL Albumin/Globulin Ratio (1.1-1.8) 12/02/17 12/02/17 12/02/17 Range/Units 11:30 08:51 07:00 WBC (4.5-11.0) 10^3/ul RBC (3.5-6.1) 10^6/uL Hgb (14.0-18.0) g/dL Hct (42.0-52.0) % MCV (80.0-105.0) fl MCH (25.0-35.0) pg MCHC (31.0-37.0) g/dl RDW (11.5-14.5) % Plt Count (120.0-450.0) 10^3/uL MPV (7.0-11.0) fl PT (9.4-12.5) SECONDS INR (0.93-1.08) Sodium 151 H (132-148) mmol/L Potassium 3.7 (3.6-5.0) mmol/L Chloride 113 H (98-107) mmol/L Carbon Dioxide 28 (21-33) mmol/L Anion Gap 14 (10-20) BUN 25 H (7-21) mg/dL Creatinine 0.9 (0.8-1.5) mg/dl Est GFR ( Amer) > 60 Est GFR (Non-Af Amer) > 60 POC Glucose (mg/dL) 92 (65-110) mg/dL Random Glucose 99 (70-110) mg/dL Calcium 9.3 (8.4-10.5) mg/dL Phosphorus 3.5 (2.5-4.5) mg/dL Magnesium 2.4 H (1.7-2.2) mg/dL Total Bilirubin 0.6 (0.2-1.3) mg/dL AST 38 (17-59) U/L ALT 69 H (7-56) U/L Alkaline Phosphatase 41 (38-126) U/L Total Creatine Kinase 239 H (35-230) U/L CK-MB (CK-2) 1.4 (0.0-3.6) ng/mL CK-MB (CK-2) % Cancelled Total Protein 6.3 (5.8-8.3) g/dL Albumin 3.5 (3.0-4.8) g/dL Globulin 2.8 gm/dL Albumin/Globulin Ratio 1.3 (1.1-1.8) 12/02/17 Range/Units 07:00 WBC (4.5-11.0) 10^3/ul RBC (3.5-6.1) 10^6/uL Hgb (14.0-18.0) g/dL Hct (42.0-52.0) % MCV (80.0-105.0) fl MCH (25.0-35.0) pg MCHC (31.0-37.0) g/dl RDW (11.5-14.5) % Plt Count (120.0-450.0) 10^3/uL MPV (7.0-11.0) fl PT 15.0 H (9.4-12.5) SECONDS INR 1.30 H (0.93-1.08) Sodium (132-148) mmol/L Potassium (3.6-5.0) mmol/L Chloride (98-107) mmol/L Carbon Dioxide (21-33) mmol/L Anion Gap (10-20) BUN (7-21) mg/dL Creatinine (0.8-1.5) mg/dl Est GFR ( Amer) Est GFR (Non-Af Amer) POC Glucose (mg/dL) (65-110) mg/dL Random Glucose (70-110) mg/dL Calcium (8.4-10.5) mg/dL Phosphorus (2.5-4.5) mg/dL Magnesium (1.7-2.2) mg/dL Total Bilirubin (0.2-1.3) mg/dL AST (17-59) U/L ALT (7-56) U/L Alkaline Phosphatase (38-126) U/L Total Creatine Kinase (35-230) U/L CK-MB (CK-2) (0.0-3.6) ng/mL CK-MB (CK-2) % Total Protein (5.8-8.3) g/dL Albumin (3.0-4.8) g/dL Globulin gm/dL Albumin/Globulin Ratio (1.1-1.8) Laboratory Results - last 24 hr 12/02/17 12/02/17 12/02/17 07:00 07:00 08:51 WBC RBC Hgb Hct MCV MCH MCHC RDW Plt Count MPV PT 15.0 H INR 1.30 H Sodium 151 H Potassium 3.7 Chloride 113 H Carbon Dioxide 28 Anion Gap 14 BUN 25 H Creatinine 0.9 Est GFR ( Amer) > 60 Est GFR (Non-Af Amer) > 60 POC Glucose (mg/dL) 92 Random Glucose 99 Calcium 9.3 Phosphorus 3.5 Magnesium 2.4 H Total Bilirubin 0.6 AST 38 ALT 69 H Alkaline Phosphatase 41 Total Creatine Kinase CK-MB (CK-2) CK-MB (CK-2) % Total Protein 6.3 Albumin 3.5 Globulin 2.8 Albumin/Globulin Ratio 1.3 12/02/17 12/02/17 12/02/17 11:30 14:57 21:11 WBC RBC Hgb Hct MCV MCH MCHC RDW Plt Count MPV PT INR Sodium Potassium Chloride Carbon Dioxide Anion Gap BUN Creatinine Est GFR ( Amer) Est GFR (Non-Af Amer) POC Glucose (mg/dL) 90 110 Random Glucose Calcium Phosphorus Magnesium Total Bilirubin AST ALT Alkaline Phosphatase Total Creatine Kinase 239 H CK-MB (CK-2) 1.4 CK-MB (CK-2) % Cancelled Total Protein Albumin Globulin Albumin/Globulin Ratio 12/03/17 12/03/17 12/03/17 03:23 05:30 05:30 WBC 7.7 RBC 3.84 Hgb 11.4 L Hct 36.5 L MCV 95.1 MCH 29.7 MCHC 31.2 RDW 14.3 Plt Count 262 MPV 11.0 PT 15.4 H INR 1.33 H Sodium Potassium Chloride Carbon Dioxide Anion Gap BUN Creatinine Est GFR ( Amer) Est GFR (Non-Af Amer) POC Glucose (mg/dL) 106 Random Glucose Calcium Phosphorus Magnesium Total Bilirubin AST ALT Alkaline Phosphatase Total Creatine Kinase CK-MB (CK-2) CK-MB (CK-2) % Total Protein Albumin Globulin Albumin/Globulin Ratio 12/03/17 05:30 WBC RBC Hgb Hct MCV MCH MCHC RDW Plt Count MPV PT INR Sodium 152 H Potassium 3.9 Chloride 114 H Carbon Dioxide 27 Anion Gap 15 BUN 33 H Creatinine 1.0 Est GFR ( Amer) > 60 Est GFR (Non-Af Amer) > 60 POC Glucose (mg/dL) Random Glucose 123 H Calcium 9.4 Phosphorus 4.5 Magnesium 2.4 H Total Bilirubin 0.7 AST 52 ALT 70 H Alkaline Phosphatase 36 L Total Creatine Kinase CK-MB (CK-2) CK-MB (CK-2) % Total Protein 5.9 Albumin 3.3 Globulin 2.6 Albumin/Globulin Ratio 1.3 Fingerstick Blood Sugar Results: 106 Review of Systems - Review of Systems Systems not reviewed;Unavailable: Intubated Critical Care Progress Note - Ventilator Checklist Head of Bed 30 Degrees: Yes Daily Assessment of Readiness to Wean: Yes Daily Spontaneous Breathing Trial: Yes PUD Prophalyxis: Yes DVT Prophylaxis: Yes Oral Care with Chlorhexidine Gluconate {CHG}: Yes - Vent Settings MODE:: PRESSURE SUPPORT - Extremities/Vascular Does the Patient have a Mackenzie Catheter?: Yes Does the Patient need a Mackenzie Catheter?: Yes - Restraints Justification for Restraints: High risk for self extubation, High risk for removing IV access, High risk for harming self - Prophylaxis GI Prophylaxis GI: PPI - Prophylaxis DVT Prophylaxis DVT: Heparin SQ, SCDs - Nutrition Nutrition: Nutrition Category Date Time Status NPO Diet [DIET] Diets 11/21/17 Breakfast Ordered Assessment/Plan - Assessment and Plan (Free Text) Assessment: 62yo M with PMHx of Bipolar disorder and ETOH abuse in ICU for DTs 2/2 ETOH withdrawal. Patient initially admitted to psych for suicidal ideation then transferred to in-patient due to severe ETOH withdrawal with DTs requiring high- dose sedation and intubation. Rhabdomyolysis was also noted, but has been improving. Plan: Neuro: - Intubated and sedated on fentanyl and precedex - will continue attempting to wean off sedation daily - Ativan prn to avoid over-sedation - Neuro consulted- recs appreciated - EEG done 11/28 and 12/01, pending official reads, Spoke w/ Dr. Rosenberg who mentioned that no status epilepticus was seen, however, 10 second seizure was seen - MRI brain w/ contrast ordered as per Neuro recs to rule out encephalitis and intracranial changes as causes of AMS; if MRI is positive for encephalitis, patient should receive spinal tap and management accordingly - Keppra 750mg BID will be added per Neuro recs - Continue CIWA protocol, seizure precaution, aspiration precaution - Head CT negative for acute pathology Cardio: - HD stable - Maintain MAP> 65mmHg - Elevated HR likely 2/2 withdrawals - Hydralazine PRN for BP control - Lopressor PRN added for HR and BP control Pulm: - Intubated- wean as tolerated,currently tolerating PS well - Protective lung ventilation strategy, HOB elevated, daily oral care, and aspiration precautions - Xopenex PRN - Maintain spO2>90% GI: - cont tube feeds - Thiamine, Folic acid, and MV for ETOH withdrawal and DTs Heme: - Hgb stable - platelets stable Nephro: - Rhabdomyolysis improving, will start LR - Hypernatremia, cont free water and added LR - Will continue to monitor electrolytes and replace as needed - Continue to monitor I&O ID: - Fevers likely 2/2 withdrawals; blood cultures and UA negative so far; MRI Head to be done to r/o intracranial causes and will consider CT chest/abd/ pelvis later if fever does not resolve - No leukocytosis - Bacitracin, Zinc, MV and vit C for skin - ID consulted- recs appreciated Psych: - Hx of Bipolar - Psych consulted- recs appreciated - will evaluate once off of sedation GI ppx: Protonix DVT ppx: Heparin SC and SCDs Diet: Tube feeds Dispo: Will try to wean off of sedation as tolerated. Will trial wean off vent daily. Patient was seen, examined, and discussed with attending, Dr. Agustin Traore PGY1 Pager [phone] <Mike Velez - Last Filed: 12/03/17 14:32> CCU Objective - Vital Signs / Intake & Output Vital Signs (Last 4 hours): Vital Signs Pulse BP 12/03/17 10:28 110 H 109/57 L Intake and Output (Last 8hrs): Intake & Output 12/02/17 12/03/17 12/03/17 22:59 06:59 14:59 Intake Total 200 1260 100 Output Total 200 Balance 200 1060 100 Intake: IV 200 720 100 Fentanyl 84 precedex 336 Tube Feeding 540 Output: Urine 200 Urine, Voided 200 - Medications Active Medications: Active Medications Generic Name Dose Route Start Last Admin Trade Name Freq PRN Reason Stop Dose Admin Ascorbic Acid 500 mg 11/28/17 11:30 12/03/17 10:29 Vitamin C 500 Mg Tab PO 500 mg DAILY SHIV Administration Bacitracin 1 ea 11/28/17 08:51 11/28/17 09:34 Bacitracin TOP 1 ea Q6 PRN Administration Swelling Folic Acid 1 mg 12/01/17 10:15 12/03/17 10:30 Folic Acid PO 1 mg DAILY SHIV Administration Heparin Sodium (Porcine) 5,000 units 12/03/17 08:15 12/03/17 10:29 Heparin SC 5,000 units Q8 SHIV Administration Protocol Hydralazine HCl 10 mg 11/29/17 14:56 12/02/17 12:56 Apresoline IVP 10 mg Q6 PRN Administration give if SBP >160 Dexmedetomidine HCl 400 mcg in 100 mls @ 3.629 mls/hr 11/26/17 09:21 10:24 Precedex 4 Mcg/Ml (100 Ml) IV 1.5 mcg/kg/hr .Q24H PRN 27.216 mls/hr Agitation Administration Protocol 0.2 MCG/KG/HR Fentanyl Citrate 1,000 mcg in 100 mls @ 5 mls/hr 12/01/17 08:08 12/02/17 22: 49 Fentanyl Citrate/Sodium Chloride 1 Mg/100 Ml IV 70 mcg/hr .Q20H PRN 7 mls/hr TITRATE PER MD ORDER Administration Protocol 50 MCG/HR Acetaminophen 1,000 mg in 100 mls @ 400 mls/hr 12/03/17 08:37 12/03/17 10:46 Ofirmev IVPB 12/05/17 08:38 400 mls/hr Q6H PRN Administration fever Lactated Ringer's 1,000 mls @ 150 mls/hr 12/03/17 11:30 Lactated Ringer's IV .Q6H40M [facility] Levetiracetam 750 mg/ Sodium 107.5 mls @ 460 mls/hr 12/03/17 11:45 Chloride IV Q12 [facility] Insulin Human Lispro 0 units 11/26/17 09:00 12/03/17 10:22 Humalog Low SC Not Given Q6H [facility] Protocol Levalbuterol HCl 0.63 mg 12/02/17 09:55 12/03/17 07:18 Xopenex IH 0.63 mg [id number] PRN Administration Shortness of Breath Lorazepam 4 mg 12/02/17 15:25 12/03/17 07:54 Ativan IVP 4 mg Q4H PRN Administration Agitation Metoprolol Tartrate 5 mg 12/02/17 16:00 12/03/17 10:28 Lopressor IVP 5 mg Q4 [facility] Administration Multivitamins/Minerals 1 tab 11/29/17 08:00 12/03/17 10:29 Therapeutic-M Tab PO 1 tab 0800 [facility] Administration Pantoprazole Sodium 40 mg 11/22/17 10:00 12/03/17 10:30 Protonix Inj IVP 40 mg DAILY [facility] Administration Thiamine HCl 100 mg 11/28/17 14:00 12/03/17 10:29 Vitamin B1 Tab PO 100 mg TID SHIV Administration Zinc Sulfate 220 mg 11/28/17 11:30 12/03/17 10:29 Zinc Sulfate 220 Mg Cap PO 220 mg DAILY [facility] Administration - Patient Studies Lab Studies: Microbiology Studies 12/02/17 03:30 Blood Culture - Preliminary Blood-Venous NO GROWTH AFTER 24 HOURS 12/02/17 03:00 Blood Culture - Preliminary Blood-Venous NO GROWTH AFTER 24 HOURS 11/30/17 21:45 Blood Culture - Preliminary Blood-Venous NO GROWTH AFTER 48 HOURS 11/30/17 22:00 Blood Culture - Preliminary Blood-Venous NO GROWTH AFTER 48 HOURS Lab Studies 12/03/17 12/03/17 12/03/17 Range/Units 10:30 08:56 06:30 WBC (4.5-11.0) 10^3/ul RBC (3.5-6.1) 10^6/uL Hgb (14.0-18.0) g/dL Hct (42.0-52.0) % MCV (80.0-105.0) fl MCH (25.0-35.0) pg MCHC (31.0-37.0) g/dl RDW (11.5-14.5) % Plt Count (120.0-450.0) 10^3/uL MPV (7.0-11.0) fl PT (9.4-12.5) SECONDS INR (0.93-1.08) pO2 66 H (30-55) mm/Hg VBG pH 7.41 (7.32-7.43) VBG pCO2 43.0 (40-60) VBG HCO3 27.3 (21-28) mmol/l VBG Total CO2 28.6 H (22-28) mmol.L VBG O2 Sat (Calc) 96.7 H (40-65) % VBG Base Excess 2.2 H (0.0-2.0) mmol/L VBG Potassium 4.0 (3.6-5.2) mmol/L Glucose 123 H (75-110) mg/dl Lactate 0.7 (0.7-2.1) mmol/L FiO2 21.0 % Sodium 146.0 (132-148) mmol/L Potassium (3.6-5.0) mmol/L Chloride 115.0 H (98-107) mmol/L Carbon Dioxide (21-33) mmol/L Anion Gap (10-20) BUN (7-21) mg/dL Creatinine (0.8-1.5) mg/dl Est GFR ( Amer) Est GFR (Non-Af Amer) POC Glucose (mg/dL) 103 (65-110) mg/dL Random Glucose (70-110) mg/dL Calcium (8.4-10.5) mg/dL Phosphorus (2.5-4.5) mg/dL Magnesium (1.7-2.2) mg/dL Total Bilirubin (0.2-1.3) mg/dL AST (17-59) U/L ALT (7-56) U/L Alkaline Phosphatase (38-126) U/L Total Creatine Kinase 543 H (35-230) U/L CK-MB (CK-2) 2.0 (0.0-3.6) ng/mL CK-MB (CK-2) % Cancelled Total Protein (5.8-8.3) g/dL Albumin (3.0-4.8) g/dL Globulin gm/dL Albumin/Globulin Ratio (1.1-1.8) Venous Blood Potassium 4.0 (3.6-5.2) mmol/L 12/03/17 12/03/17 12/03/17 Range/Units 05:30 05:30 05:30 WBC 7.7 (4.5-11.0) 10^3/ul RBC 3.84 (3.5-6.1) 10^6/uL Hgb 11.4 L (14.0-18.0) g/dL Hct 36.5 L (42.0-52.0) % MCV 95.1 (80.0-105.0) fl MCH 29.7 (25.0-35.0) pg MCHC 31.2 (31.0-37.0) g/dl RDW 14.3 (11.5-14.5) % Plt Count 262 (120.0-450.0) 10^3/uL MPV 11.0 (7.0-11.0) fl PT 15.4 H (9.4-12.5) SECONDS INR 1.33 H (0.93-1.08) pO2 (30-55) mm/Hg VBG pH (7.32-7.43) VBG pCO2 (40-60) VBG HCO3 (21-28) mmol/l VBG Total CO2 (22-28) mmol.L VBG O2 Sat (Calc) (40-65) % VBG Base Excess (0.0-2.0) mmol/L VBG Potassium (3.6-5.2) mmol/L Glucose (75-110) mg/dl Lactate (0.7-2.1) mmol/L FiO2 % Sodium 152 H (132-148) mmol/L Potassium 3.9 (3.6-5.0) mmol/L Chloride 114 H (98-107) mmol/L Carbon Dioxide 27 (21-33) mmol/L Anion Gap 15 (10-20) BUN 33 H (7-21) mg/dL Creatinine 1.0 (0.8-1.5) mg/dl Est GFR ( Amer) > 60 Est GFR (Non-Af Amer) > 60 POC Glucose (mg/dL) (65-110) mg/dL Random Glucose 123 H (70-110) mg/dL Calcium 9.4 (8.4-10.5) mg/dL Phosphorus 4.5 (2.5-4.5) mg/dL Magnesium 2.4 H (1.7-2.2) mg/dL Total Bilirubin 0.7 (0.2-1.3) mg/dL AST 52 (17-59) U/L ALT 70 H (7-56) U/L Alkaline Phosphatase 36 L (38-126) U/L Total Creatine Kinase (35-230) U/L CK-MB (CK-2) (0.0-3.6) ng/mL CK-MB (CK-2) % Total Protein 5.9 (5.8-8.3) g/dL Albumin 3.3 (3.0-4.8) g/dL Globulin 2.6 gm/dL Albumin/Globulin Ratio 1.3 (1.1-1.8) Venous Blood Potassium (3.6-5.2) mmol/L 12/03/17 12/02/17 12/02/17 Range/Units 03:23 21:11 14:57 WBC (4.5-11.0) 10^3/ul RBC (3.5-6.1) 10^6/uL Hgb (14.0-18.0) g/dL Hct (42.0-52.0) % MCV (80.0-105.0) fl MCH (25.0-35.0) pg MCHC (31.0-37.0) g/dl RDW (11.5-14.5) % Plt Count (120.0-450.0) 10^3/uL MPV (7.0-11.0) fl PT (9.4-12.5) SECONDS INR (0.93-1.08) pO2 (30-55) mm/Hg VBG pH (7.32-7.43) VBG pCO2 (40-60) VBG HCO3 (21-28) mmol/l VBG Total CO2 (22-28) mmol.L VBG O2 Sat (Calc) (40-65) % VBG Base Excess (0.0-2.0) mmol/L VBG Potassium (3.6-5.2) mmol/L Glucose (75-110) mg/dl Lactate (0.7-2.1) mmol/L FiO2 % Sodium (132-148) mmol/L Potassium (3.6-5.0) mmol/L Chloride (98-107) mmol/L Carbon Dioxide (21-33) mmol/L Anion Gap (10-20) BUN (7-21) mg/dL Creatinine (0.8-1.5) mg/dl Est GFR ( Amer) Est GFR (Non-Af Amer) POC Glucose (mg/dL) 106 110 90 (65-110) mg/dL Random Glucose (70-110) mg/dL Calcium (8.4-10.5) mg/dL Phosphorus (2.5-4.5) mg/dL Magnesium (1.7-2.2) mg/dL Total Bilirubin (0.2-1.3) mg/dL AST (17-59) U/L ALT (7-56) U/L Alkaline Phosphatase (38-126) U/L Total Creatine Kinase (35-230) U/L CK-MB (CK-2) (0.0-3.6) ng/mL CK-MB (CK-2) % Total Protein (5.8-8.3) g/dL Albumin (3.0-4.8) g/dL Globulin gm/dL Albumin/Globulin Ratio (1.1-1.8) Venous Blood Potassium (3.6-5.2) mmol/L 12/02/17 Range/Units 11:30 WBC (4.5-11.0) 10^3/ul RBC (3.5-6.1) 10^6/uL Hgb (14.0-18.0) g/dL Hct (42.0-52.0) % MCV (80.0-105.0) fl MCH (25.0-35.0) pg MCHC (31.0-37.0) g/dl RDW (11.5-14.5) % Plt Count (120.0-450.0) 10^3/uL MPV (7.0-11.0) fl PT (9.4-12.5) SECONDS INR (0.93-1.08) pO2 (30-55) mm/Hg VBG pH (7.32-7.43) VBG pCO2 (40-60) VBG HCO3 (21-28) mmol/l VBG Total CO2 (22-28) mmol.L VBG O2 Sat (Calc) (40-65) % VBG Base Excess (0.0-2.0) mmol/L VBG Potassium (3.6-5.2) mmol/L Glucose (75-110) mg/dl Lactate (0.7-2.1) mmol/L FiO2 % Sodium (132-148) mmol/L Potassium (3.6-5.0) mmol/L Chloride (98-107) mmol/L Carbon Dioxide (21-33) mmol/L Anion Gap (10-20) BUN (7-21) mg/dL Creatinine (0.8-1.5) mg/dl Est GFR ( Amer) Est GFR (Non-Af Amer) POC Glucose (mg/dL) (65-110) mg/dL Random Glucose (70-110) mg/dL Calcium (8.4-10.5) mg/dL Phosphorus (2.5-4.5) mg/dL Magnesium (1.7-2.2) mg/dL Total Bilirubin (0.2-1.3) mg/dL AST (17-59) U/L ALT (7-56) U/L Alkaline Phosphatase (38-126) U/L Total Creatine Kinase (35-230) U/L CK-MB (CK-2) 1.4 (0.0-3.6) ng/mL CK-MB (CK-2) % Cancelled Total Protein (5.8-8.3) g/dL Albumin (3.0-4.8) g/dL Globulin gm/dL Albumin/Globulin Ratio (1.1-1.8) Venous Blood Potassium (3.6-5.2) mmol/L Laboratory Results - last 24 hr 12/02/17 12/02/17 12/02/17 11:30 14:57 21:11 WBC RBC Hgb Hct MCV MCH MCHC RDW Plt Count MPV PT INR pO2 VBG pH VBG pCO2 VBG HCO3 VBG Total CO2 VBG O2 Sat (Calc) VBG Base Excess VBG Potassium Glucose Lactate FiO2 Sodium Potassium Chloride Carbon Dioxide Anion Gap BUN Creatinine Est GFR ( Amer) Est GFR (Non-Af Amer) POC Glucose (mg/dL) 90 110 Random Glucose Calcium Phosphorus Magnesium Total Bilirubin AST ALT Alkaline Phosphatase Total Creatine Kinase CK-MB (CK-2) 1.4 CK-MB (CK-2) % Cancelled Total Protein Albumin Globulin Albumin/Globulin Ratio Venous Blood Potassium 12/03/17 12/03/17 12/03/17 03:23 05:30 05:30 WBC 7.7 RBC 3.84 Hgb 11.4 L Hct 36.5 L MCV 95.1 MCH 29.7 MCHC 31.2 RDW 14.3 Plt Count 262 MPV 11.0 PT 15.4 H INR 1.33 H pO2 VBG pH VBG pCO2 VBG HCO3 VBG Total CO2 VBG O2 Sat (Calc) VBG Base Excess VBG Potassium Glucose Lactate FiO2 Sodium Potassium Chloride Carbon Dioxide Anion Gap BUN Creatinine Est GFR ( Amer) Est GFR (Non-Af Amer) POC Glucose (mg/dL) 106 Random Glucose Calcium Phosphorus Magnesium Total Bilirubin AST ALT Alkaline Phosphatase Total Creatine Kinase CK-MB (CK-2) CK-MB (CK-2) % Total Protein Albumin Globulin Albumin/Globulin Ratio Venous Blood Potassium 12/03/17 12/03/17 12/03/17 05:30 06:30 08:56 WBC RBC Hgb Hct MCV MCH MCHC RDW Plt Count MPV PT INR pO2 VBG pH VBG pCO2 VBG HCO3 VBG Total CO2 VBG O2 Sat (Calc) VBG Base Excess VBG Potassium Glucose Lactate FiO2 Sodium 152 H Potassium 3.9 Chloride 114 H Carbon Dioxide 27 Anion Gap 15 BUN 33 H Creatinine 1.0 Est GFR ( Amer) > 60 Est GFR (Non-Af Amer) > 60 POC Glucose (mg/dL) 103 Random Glucose 123 H Calcium 9.4 Phosphorus 4.5 Magnesium 2.4 H Total Bilirubin 0.7 AST 52 ALT 70 H Alkaline Phosphatase 36 L Total Creatine Kinase 543 H CK-MB (CK-2) 2.0 CK-MB (CK-2) % Cancelled Total Protein 5.9 Albumin 3.3 Globulin 2.6 Albumin/Globulin Ratio 1.3 Venous Blood Potassium 12/03/17 10:30 WBC RBC Hgb Hct MCV MCH MCHC RDW Plt Count MPV PT INR pO2 66 H VBG pH 7.41 VBG pCO2 43.0 VBG HCO3 27.3 VBG Total CO2 28.6 H VBG O2 Sat (Calc) 96.7 H VBG Base Excess 2.2 H VBG Potassium 4.0 Glucose 123 H Lactate 0.7 FiO2 21.0 Sodium 146.0 Potassium Chloride 115.0 H Carbon Dioxide Anion Gap BUN Creatinine Est GFR ( Amer) Est GFR (Non-Af Amer) POC Glucose (mg/dL) Random Glucose Calcium Phosphorus Magnesium Total Bilirubin AST ALT Alkaline Phosphatase Total Creatine Kinase CK-MB (CK-2) CK-MB (CK-2) % Total Protein Albumin Globulin Albumin/Globulin Ratio Venous Blood Potassium 4.0 Critical Care Progress Note - Nutrition Nutrition: Nutrition Category Date Time Status NPO Diet [DIET] Diets 11/21/17 Breakfast Ordered Attending/Attestation - Attestation I have personally seen and examined this patient.: Yes I have fully participated in the care of the patient.: Yes I have reviewed all pertinent clinical information: Yes Notes (Text): 12/03/17 14:[address] Velez note
--- NOTE | 2017-12-03 08:08 | RAD ---
HISTORY: intubated COMPARISON: Portable chest 12/02/2017. FINDINGS: Endotracheal and nasogastric tubes appear unchanged in position. LUNGS: No active pulmonary disease. PLEURA: No significant pleural effusion identified, no pneumothorax apparent. CARDIOVASCULAR: Normal. OSSEOUS STRUCTURES: No significant abnormalities. VISUALIZED UPPER ABDOMEN: Normal. OTHER FINDINGS: None. IMPRESSION: No acute cardiopulmonary disease appreciated. Prior questioned, minimal right pleural effusion not identified currently.
[2017-12-03] MEDS ORDERED: Sodium Chloride 0.9% 1,000 ML IV SCH (08:30)
--- NOTE | 2017-12-03 09:04 | RAD ---
HISTORY: Oral gastric tube insertion COMPARISON: Portable chest 12/03/2017. FINDINGS: Endotracheal tube is unchanged in position. Oral gastric tube replaces prior nasogastric tube and extends into the abdomen with the tip off the inferior margins of the image. LUNGS: No active pulmonary disease. PLEURA: No pneumothorax bilaterally. No left pleural effusion. Right costophrenic sulcus is obscured by telemetry leads with trace blunting not excluded. This may indicate minimal right pleural effusion. CARDIOVASCULAR: Normal. OSSEOUS STRUCTURES: No significant abnormalities. VISUALIZED UPPER ABDOMEN: Normal. OTHER FINDINGS: None. IMPRESSION: No definite acute infiltrate bilaterally. No left pleural effusion. Trace right pleural effusion is difficult to exclude as discussed above. Endotracheal tube is stable with oral gastric tube in position in the abdomen with the tip off the image.
[2017-12-03] MEDS: Multivitamin With Minerals Tab PO SCH (10:29)
[2017-12-03 10:38] LABS: VENOUS BLOOD GAS BASE EXCESS 2.2 mmol/L (0.0-2.0); VENOUS BLOOD GAS PO2 66 mm/Hg (30-55); VENOUS BLOOD PH 7.41 (7.32-7.43)
--- NOTE | 2017-12-03 12:31 | PN ---
DATE: 12/03/2017 SUBJECTIVE: The patient was seen and examined at bedside. He is on Precedex 1.5 mcg/kg/hour and fentanyl 70 mcg/hour. PHYSICAL EXAMINATION: VITAL SIGNS: He is tolerating pressure support 10/5, tolerated well with tidal volume 340-360 with respiratory rate 20, rapid shallow breathing index 57. On FIO2 of 35%. His O2 sat is 100%. End-tidal CO2 of 49. He is febrile with temperature 101.7, blood pressure 114/69, heart rate 84, respiratory rate 20. HEENT: Head and neck atraumatic. LUNGS: Clear to auscultation bilaterally. HEART: Regular rate and rhythm. S1 and S2 normal. ABDOMEN: Soft, nontender, nondistended. MUSCULOSKELETAL: No C/C/E. no localized muscle rigidity NEUROLOGIC: The patient moves all extremities spontaneously. SKIN: Moist. PSYCH: The patient is sedated, not responding to commands. LABORATORY DATA: Sodium 152, potassium 3.9, chloride 114, carbon dioxide 27, BUN 33, creatinine 1, glucose 123, AST 52, ALT 17. WBC 7.7, hemoglobin 11.4, platelet count 262. MEDICATIONS: Vitamin C, bacitracin, Precedex, fentanyl, folic acid, heparin subcu, hydralazine p.r.n., ibuprofen p.r.n., Ativan p.r.n., metoprolol 5 mg IV q. 4, minerals and vitamins, Protonix, thiamine, zinc. ASSESSMENT AND PLAN: This is a 62-year-old gentleman, who presumably came to Intensive Care Unit for alcohol withdrawal and delirium tremens with inability to protect his airways, for which he was intubated. Despite multiple and vigorous attempts at weaning down his sedation, every time these attempts were undertaken, the patient started to be extremely agitated and attempts at weaning him from mechanical ventilation failed as well. At present time, he is on pressure support 10/5 and maintain his ventilation. We will repeat ABG in an hour or two to evaluate his gas exchange and ventilatory parameters. He is also febrile and that is concerning. Severe bacterial infection/severe sepsis less likely as his procalcitonin is very low (0.05-<0.05), however we will proceed with MRI of the brain with contrast to eval for encephalitis (viral and non-infectious) and leptomeningeal involvement. EEG results were discussed with Dr. Rosenberg-->no status epilepticus, but short run of rhytmic activity-->Keppra 750 mg IV q12h was started (patient is also on propofol). Lower extremities venous doppler was ordered-->to r/o VTE as a source of fever. Will run list of patient's meds by ID as well, but nothing stands out from that perspective as potential culprit. rheumo screen ( ESR, RF, RJ) was ordered to rule out auto-immune inflammatory process as a etiology of fever. Patient does have some tremor, but no localized muscle rigidity and no compartment syndrome signs of extremities physical exam. No lactic acidosis as well (ph 7.41, LA 0.7), no recent exposure to antipsychotics. Drug screen for PCP, amphetamine and cocaine are negative. If above work-up comes back unrevealing, will touch base with ID if should consider LP and/or CT chest/abdo/pelvis. Meanwhile will continue with free water flushes and hydration with LR. We will continue with deep venous thrombosis/gastrointestinal prophylaxis. Head of bed elevated >35 degrees. Daily weaning trials and daily sedation vacation. Conservative oxygen management. We willmaintain mean arterial pressure more than 65. Euvolemia, euglycemia for additional nephroprotective effect. We will correct electrolytes. We will continue with enteral nutrition. Gastrointestinal prophylaxis. ccm time 40 min Mike Velez MD [facility]
[2017-12-03] MEDS: Lactated Ringer's 1,000 ML IV SCH ×2 (12:58→23:57)
[2017-12-03] MEDS: Fentanyl 1000mcg/100ml NS 1,000 MCG/100 ML BAG IV PRN ×2 (13:51→23:56)
[2017-12-03 15:06] LABS: BLOOD UREA NITROGEN 29 mg/dL (7-21); CALCIUM 8.9 mg/dL (8.4-10.5); GFR AFRICAN-AMERICAN > 60; GFR NON-AFRICAN AMERICAN > 60
--- NOTE | 2017-12-03 15:43 | EEG ---
DATE: 11/30/2017 TECHNICAL INFORMATION: EEG is acquired using 16 electrodes placed according to the 10-20 [employer] electrode system. All electrodes were referenced to A1-A2 or P1-P2 electrodes. Continuous seizure monitoring used spike detection system. BACKGROUND: There was a slow background bilaterally at 6-7 Hz that is reactive, symmetric, and attenuates with eye opening. There was sleep captured with vertex waves, sleep spindles that are 12-14 Hz bilaterally symmetrical. During the record, there was one event toward the end of the EEG that was approximately 20-second pause that consisted of a right frontal theta/delta activity that came with mixed increasing amplitude in spite of the left temporal lobe. This was considered to be a subclinical seizure. Given now the seizures recorded, there was also an O1 and O2 electrode noted, artifact noted, activation maneuvers did not produce any abnormal activity. IMPRESSION: This is an abnormal awake and sleep electroencephalogram. There was a subclinical seizure noted. Clinical correlation is required. Brittany Rosenberg MD
--- NOTE | 2017-12-03 17:08 | CP.PCM.PN ---
Subjective - Date & Time of Evaluation Date of Evaluation: 12/03/17 Time of Evaluation: 15:45 - Subjective Subjective: Infectious Disease Follow Up: December 03, 2017 62 yo male with medical history that includes Bipolar disorder and alcohol abuse presented with EtOH intoxication and now in withdrawals. Originally in the psych floor for bipolar disease treatment and suicidal ideation on 11/21/2017. The patient required intubation. ID called for possible aspiration pneumonia. No fevers, leukocytosis at this time. Remains intubated. Still no fevers or leukocytosis. Remains sedated. Noted blistered skin on right hand that slightly improved. Persistent fevers up to 101.7 F. Still no leukocytosis. Cultures from 2017 negative. New cultures sent 12/01-. Multiple blisters on the right hand. Fluid filler and dark in color. Patient highly agitated on attempts to wean sedation. Would obtain fluid from blisters for culture. Would consider CT of chest/ abdomen/pelvis. May consider use of meropenem for antibiotic coverage at this point. No new issues. Difficult extubation. Patient severely agitated when taken off sedation. Objective - Vital Signs/Intake and Output Vital Signs (last 24 hours): Temp Pulse Resp BP Pulse Ox 101.1 F H 86 23 139/101 H 93 L 12/03/17 16:00 12/03/17 16:12 12/03/17 14:34 12/03/17 16:00 12/03/17 16:00 Intake and Output: 12/03/17 12/03/17 06:59 18:59 Intake Total 1460 310 Output Total 200 Balance 1260 310 - Medications Medications: Current Medications Ascorbic Acid (Vitamin C 500 Mg Tab) 500 mg PO DAILY [facility] Last Admin: 12/03/17 10:29 Dose: 500 mg Bacitracin (Bacitracin) 1 ea TOP Q6 PRN PRN Reason: Swelling Last Admin: 11/28/17 09:34 Dose: 1 ea Folic Acid (Folic Acid) 1 mg PO DAILY [facility] Last Admin: 12/03/17 10:30 Dose: 1 mg Heparin Sodium (Porcine) (Heparin) 5,000 units SC Q8 SHIV PRN Reason: Protocol Last Admin: 12/03/17 13:19 Dose: 5,000 units Hydralazine HCl (Apresoline) 10 mg IVP Q6 PRN PRN Reason: give if SBP >160 Last Admin: 12/02/17 12:56 Dose: 10 mg Dexmedetomidine HCl (Precedex 4 Mcg/Ml (100 Ml)) 400 mcg in 100 mls @ 3.629 mls /hr IV .Q24H PRN; Protocol; 0.2 MCG/KG/HR PRN Reason: Agitation Last Admin: 12/03/17 14:41 Dose: 1.5 mcg/kg/hr, 27.216 mls/hr Fentanyl Citrate (Fentanyl Citrate/Sodium Chloride 1 Mg/100 Ml) 1,000 mcg in 100 mls @ 5 mls/hr IV .Q20H PRN; Protocol; 50 MCG/HR PRN Reason: TITRATE PER MD ORDER Last Titration: 12/03/17 15:08 Dose: 100 mcg/hr, 10 mls/hr Acetaminophen (Ofirmev) 1,000 mg in 100 mls @ 400 mls/hr IVPB Q6H PRN PRN Reason: fever Stop: 12/05/17 08:38 Last Admin: 12/03/17 10:46 Dose: 400 mls/hr Lactated Ringer's (Lactated Ringer's) 1,000 mls @ 150 mls/hr IV .Q6H40M [facility] Last Admin: 12/03/17 12:58 Dose: 150 mls/hr Levetiracetam 750 mg/ Sodium (Chloride) 107.5 mls @ 460 mls/hr IV Q12 [facility] Last Admin: 12/03/17 13:13 Dose: 460 mls/hr Insulin Human Lispro (Humalog Low) 0 units SC Q6H SHIV PRN Reason: Protocol Last Admin: 12/03/17 16:54 Dose: Not Given Levalbuterol HCl (Xopenex) 0.63 mg IH [id number] PRN PRN Reason: Shortness of Breath Last Admin: 12/03/17 13:48 Dose: 0.63 mg Lorazepam (Ativan) 4 mg IVP Q4H PRN PRN Reason: Agitation Last Admin: 12/03/17 13:18 Dose: 4 mg Metoprolol Tartrate (Lopressor) 5 mg IVP Q4 [facility] Last Admin: 12/03/17 13:19 Dose: 5 mg Multivitamins/Minerals (Therapeutic-M Tab) 1 tab PO 0800 [facility] Last Admin: 12/03/17 10:29 Dose: 1 tab Pantoprazole Sodium (Protonix Inj) 40 mg IVP DAILY [facility] Last Admin: 12/03/17 10:30 Dose: 40 mg Thiamine HCl (Vitamin B1 Tab) 100 mg PO TID [facility] Last Admin: 12/03/17 13:18 Dose: 100 mg Zinc Sulfate (Zinc Sulfate 220 Mg Cap) 220 mg PO DAILY [facility] Last Admin: 12/03/17 10:29 Dose: 220 mg - Labs Labs: 12/03/17 05:30 12/03/17 14:20 PT 15.4 SECONDS (9.4-12.5) H 12/03/17 05:30 INR 1.33 (0.93-1.08) H 12/03/17 05:30 - Constitutional Appears: Non-toxic, No Acute Distress, Chronically Ill - Head Exam Additional comments: intubated and sedated. - Eye Exam Eye Exam: EOMI, PERRL Pupil Exam: NORMAL ACCOMODATION, PERRL - ENT Exam ENT Exam: Mucous Membranes Moist, Normal External Ear Exam, TM's Normal Bilaterally - Neck Exam Additional comments: intubated - Respiratory Exam Respiratory Exam: Clear to Ausculation Bilateral, NORMAL BREATHING PATTERN. absent: Rales, Rhonchi, Wheezes - Cardiovascular Exam Cardiovascular Exam: REGULAR RHYTHM, RRR, +S1, +S2 - GI/Abdominal Exam GI & Abdominal Exam: Soft, Normal Bowel Sounds. absent: Distended, Tenderness - Extremities Exam Extremities Exam: Joint Swelling, Pedal Edema Additional comments: multiple blisters on the right hand. +2-3 edema of the extremities. - Neurological Exam Additional comments: intubated, ventilated, sedated. - Psychiatric Exam Additional comments: intubated, ventilated, sedated. - Skin Skin Exam: Intact, Normal Color Assessment and Plan - Assessment and Plan (Free Text) Assessment: 62 yo male with EtOH abuse. Developed EtOH withdrawal and now required intubation and ventilation. The patient was being evaluated by ID for potential aspiration. The patient is currently on Cefepime and Vancomycin. If aspiration is a significant concern, would either add Flagyl IV or switch Cefepime to Meropenem or Zosyn. Febrile several days ago up to 102 F. Afebrile the last few days. No leukocytosis. No findings on Chest X-ray. Supportive care. Procalcitonin is 0.14 which is low. Noted procalcitonin repeated. More likely secondary to the EtOH withdrawal and Delirium Tremens. Case discussed with team. Off antibiotics now. Will Monitor. Difficult extubation/wean from ventilation. Agitation when off sedation. Fever up to 101.9 F today. Repeat cultures with next fever. Check urinalysis and urine culture. 11/30/2017 cultures negative so far. 12/01/2017 cultures pending. Fever uptrending. Fevers now persistent. Supportive care. Thank you for allowing me to participate in the care of the patient, we will follow with you.
--- NOTE | 2017-12-03 17:51 | CP.PCM.PN ---
<Sarkis Fuentes - Last Filed: 12/03/17 17:55> Subjective - Date & Time of Evaluation Date of Evaluation: 12/03/17 Time of Evaluation: 07:00 - Subjective Subjective: Medicine progress note for Dr. Samantha Tabor Hospitalist Service: Patient seen and examined. Patient remains intubated and sedated. Patient is still tremulous despite sedation as he is only on Fentanyl and Precedex drip. Patient had fever overnight with Tmax of 102.5 degrees. ROS is unable to be obtained. Objective - Vital Signs/Intake and Output Vital Signs (last 24 hours): Temp Pulse Resp BP Pulse Ox 101.1 F H 86 23 139/101 H 93 L 12/03/17 16:00 12/03/17 16:12 12/03/17 14:34 12/03/17 16:00 12/03/17 16:00 Intake and Output: 12/03/17 12/03/17 06:59 18:59 Intake Total 1460 310 Output Total 200 Balance 1260 310 - Medications Medications: Current Medications Ascorbic Acid (Vitamin C 500 Mg Tab) 500 mg PO DAILY [facility] Last Admin: 12/03/17 10:29 Dose: 500 mg Bacitracin (Bacitracin) 1 ea TOP Q6 PRN PRN Reason: Swelling Last Admin: 11/28/17 09:34 Dose: 1 ea Folic Acid (Folic Acid) 1 mg PO DAILY [facility] Last Admin: 12/03/17 10:30 Dose: 1 mg Heparin Sodium (Porcine) (Heparin) 5,000 units SC Q8 SHIV PRN Reason: Protocol Last Admin: 12/03/17 13:19 Dose: 5,000 units Hydralazine HCl (Apresoline) 10 mg IVP Q6 PRN PRN Reason: give if SBP >160 Last Admin: 12/02/17 12:56 Dose: 10 mg Dexmedetomidine HCl (Precedex 4 Mcg/Ml (100 Ml)) 400 mcg in 100 mls @ 3.629 mls /hr IV .Q24H PRN; Protocol; 0.2 MCG/KG/HR PRN Reason: Agitation Last Admin: 12/03/17 14:41 Dose: 1.5 mcg/kg/hr, 27.216 mls/hr Fentanyl Citrate (Fentanyl Citrate/Sodium Chloride 1 Mg/100 Ml) 1,000 mcg in 100 mls @ 5 mls/hr IV .Q20H PRN; Protocol; 50 MCG/HR PRN Reason: TITRATE PER MD ORDER Last Titration: 12/03/17 15:08 Dose: 100 mcg/hr, 10 mls/hr Acetaminophen (Ofirmev) 1,000 mg in 100 mls @ 400 mls/hr IVPB Q6H PRN PRN Reason: fever Stop: 12/05/17 08:38 Last Admin: 12/03/17 10:46 Dose: 400 mls/hr Lactated Ringer's (Lactated Ringer's) 1,000 mls @ 150 mls/hr IV .Q6H40M [facility] Last Admin: 12/03/17 12:58 Dose: 150 mls/hr Levetiracetam 750 mg/ Sodium (Chloride) 107.5 mls @ 460 mls/hr IV Q12 [facility] Last Admin: 12/03/17 13:13 Dose: 460 mls/hr Insulin Human Lispro (Humalog Low) 0 units SC Q6H SHIV PRN Reason: Protocol Last Admin: 12/03/17 16:54 Dose: Not Given Levalbuterol HCl (Xopenex) 0.63 mg IH [id number] PRN PRN Reason: Shortness of Breath Last Admin: 12/03/17 13:48 Dose: 0.63 mg Lorazepam (Ativan) 4 mg IVP Q4H PRN PRN Reason: Agitation Last Admin: 12/03/17 13:18 Dose: 4 mg Metoprolol Tartrate (Lopressor) 5 mg IVP Q4 [facility] Last Admin: 12/03/17 13:19 Dose: 5 mg Multivitamins/Minerals (Therapeutic-M Tab) 1 tab PO 0800 [facility] Last Admin: 12/03/17 10:29 Dose: 1 tab Pantoprazole Sodium (Protonix Inj) 40 mg IVP DAILY [facility] Last Admin: 12/03/17 10:30 Dose: 40 mg Thiamine HCl (Vitamin B1 Tab) 100 mg PO TID [facility] Last Admin: 12/03/17 13:18 Dose: 100 mg Zinc Sulfate (Zinc Sulfate 220 Mg Cap) 220 mg PO DAILY [facility] Last Admin: 12/03/17 10:29 Dose: 220 mg - Labs Labs: 12/03/17 05:30 12/03/17 14:20 PT 15.4 SECONDS (9.4-12.5) H 12/03/17 05:30 INR 1.33 (0.93-1.08) H 12/03/17 05:30 - Constitutional Appears: Chronically Ill - Head Exam Head Exam: ATRAUMATIC, NORMOCEPHALIC - Eye Exam Eye Exam: Normal appearance - ENT Exam ENT Exam: Mucous Membranes Moist Additional comments: OGT and endotracheal tube in place - Respiratory Exam Respiratory Exam: Decreased Breath Sounds. absent: Rales, Rhonchi, Wheezes - Cardiovascular Exam Cardiovascular Exam: Tachycardia, +S1, +S2 - GI/Abdominal Exam GI & Abdominal Exam: Soft. absent: Distended, Rigid - Extremities Exam Extremities Exam: absent: Pedal Edema, Tenderness - Neurological Exam Neurological Exam: Altered - Skin Skin Exam: Intact, Warm Assessment and Plan - Assessment and Plan (Free Text) Plan: 62 year old male with PMHx of Bipolar disorder and ETOH abuse in ICU for DTs. Patient initially admitted to psych for suicidal ideation then transferred to in -patient due to severe ETOH withdrawal with DTs requiring high-dose sedation and intubation. Subclinical seizure noted on EEG performed on 11/30/17. 1. ETOH withdrawal with Delirium Tremens - Intubated and sedated currently on Fentanyl drip and weaning off Precedex as tolerated. - Neuro consulted- recs appreciated- recommend EEG, will follow up - Continue CIWA protocol, seizure precaution, aspiration precaution - Ativan 4 mg IV prn agitation and 2 mg IV TID scheduled - Head CT negative for acute pathology - EEG with subclinical seizure seen - IV Keppra on board for seizures 2. Altered Mental Status, currently being sedated for DT's - CT head was unremarkable - thiamine increased to protect against encephalopathy - neuro consulted, Dr. Rosenberg, appreciate recs 3. Blisters on hands (not affecting IV lines) - Multivitamin, vit C and Zinc added - Bacitracin ointment to be applied 4. Rhabdomyolysis - likely secondary to DT's - renal function has not been affected - Continue hydration - CPK markedly elevated - will monitor 5. Fever of unknown origin - Possibly secondary to ETOH withdrawals - ID consult, appreciate recs - Febrile overnight - Follow up septic workup - follow up Lower Extremity ultrasound to rule out DVTs 6. Electrolyte imbalance - monitor and replete as needed - Rhabdomyolysis 7. Prophylaxis - SCDs - Aspiration precautions - Seizure precautions - Heparin SC - Protonix Disposition: Remains intubated for now. Check MRI and LE ultrasound. If tests are negative, likely lumbar puncture will be done. Continue to attempt weaning off of ventilation support. Discussed and seen with hospitalist Dr. Samantha Tabor <Samantha Tabor - Last Filed: 12/05/17 14:10> Objective - Vital Signs/Intake and Output Vital Signs (last 24 hours): Temp Pulse Resp BP Pulse Ox 99.7 F H 82 22 159/83 H 100 12/05/17 13:00 12/05/17 13:00 12/05/17 13:33 12/05/17 13:00 12/05/17 13:33 Intake and Output: 12/05/17 12/05/17 06:59 18:59 Intake Total 3326 2348 Output Total 550 700 Balance 2776 1648 - Medications Medications: Current Medications Acetaminophen (Tylenol 650 Mg Supp) 650 mg RC Q6H PRN PRN Reason: Fever >100.4 F Ascorbic Acid (Vitamin C 500 Mg Tab) 500 mg PO DAILY [facility] Last Admin: 12/05/17 09:25 Dose: 500 mg Bacitracin (Bacitracin) 1 ea TOP Q6 PRN PRN Reason: Swelling Last Admin: 11/28/17 09:34 Dose: 1 ea Cyproheptadine HCl (Periactin) 4 mg PO Q8H SHIV Last Admin: 12/05/17 11:45 Dose: 4 mg Docusate Sodium (Colace Liquid) 100 mg PO BID [facility]IV Folic Acid (Folic Acid) 1 mg PO DAILY [facility] Last Admin: 12/05/17 09:25 Dose: 1 mg Heparin Sodium (Porcine) (Heparin) 5,000 units SC Q8 SHIV PRN Reason: Protocol Last Admin: 12/05/17 13:10 Dose: 5,000 units Hydralazine HCl (Apresoline) 10 mg IVP Q6 PRN PRN Reason: give if SBP >160 Last Admin: 12/02/17 12:56 Dose: 10 mg Dexmedetomidine HCl (Precedex 4 Mcg/Ml (100 Ml)) 400 mcg in 100 mls @ 3.629 mls /hr IV .Q24H PRN; Protocol; 0.2 MCG/KG/HR PRN Reason: Agitation Last Admin: 12/05/17 07:59 Dose: 1 mcg/kg/hr, 18.144 mls/hr Lactated Ringer's (Lactated Ringer's) 1,000 mls @ 150 mls/hr IV .Q6H40M [facility] Last Admin: 12/05/17 09:53 Dose: 150 mls/hr Meropenem 500 mg/ Sodium (Chloride) 100 mls @ 100 mls/hr IVPB Q8 SHIV PRN Reason: Protocol Last Admin: 12/05/17 13:07 Dose: 100 mls/hr Linezolid (Zyvox 600mg/300ml D5w) 600 mg in 300 mls @ 200 mls/hr IVPB Q12 SHIV PRN Reason: Protocol Last Admin: 12/05/17 09:24 Dose: 200 mls/hr Insulin Human Lispro (Humalog Low) 0 units SC Q6H SHIV PRN Reason: Protocol Last Admin: 12/05/17 10:10 Dose: Not Given Levalbuterol HCl (Xopenex) 0.63 mg IH [id number] PRN PRN Reason: Shortness of Breath Last Admin: 12/05/17 13:29 Dose: 0.63 mg Levetiracetam (Keppra) 750 mg PO Q12 [facility] Last Admin: 12/05/17 09:24 Dose: 750 mg Lorazepam (Ativan) 4 mg IVP Q4H PRN PRN Reason: Agitation Last Admin: 12/05/17 13:01 Dose: 4 mg Multivitamins/Minerals (Therapeutic-M Tab) 1 tab PO 0800 [facility] Last Admin: 12/05/17 09:25 Dose: 1 tab Pantoprazole Sodium (Protonix Inj) 40 mg IVP DAILY [facility] Last Admin: 12/05/17 09:26 Dose: 40 mg Polyethylene Glycol (Miralax) 17 gm PO BID [facility] Propranolol HCl (Inderal) 40 mg PO BID [facility] Last Admin: 12/05/17 11:28 Dose: 40 mg Thiamine HCl (Vitamin B1 Tab) 100 mg PO TID [facility] Last Admin: 12/05/17 13:10 Dose: 100 mg Tobramycin Sulfate (Tobramycin Inj) 0.08 gm IH [id number] [facility] Last Admin: 12/05/17 11:44 Dose: 0.08 gm Zinc Sulfate (Zinc Sulfate 220 Mg Cap) 220 mg PO DAILY [facility] Last Admin: 12/05/17 09:25 Dose: 220 mg - Labs Labs: 12/05/17 06:45 12/05/17 06:45 PT 18.5 SECONDS (9.4-12.5) H 12/05/17 06:45 INR 1.59 (0.93-1.08) H 12/05/17 06:45 Attending/Attestation - Attestation I have personally seen and examined this patient.: Yes I have fully participated in the care of the patient.: Yes I have reviewed all pertinent clinical information, including history, physical exam and plan: Yes Notes (Text): I have seen and examined the patient at bedside. Agree with the above note with the following additions/ exceptions: Briefly this is 62 year old male with history of bipolar disorder and chronic alcohol abuse who was admitted for alcohol withdrawal and is now manifesting severe alcohol withdrawal and delerium Tremens. He is diaphoretic, agitated, restless, tachycardic, hypertensive and hyperthermic. Patient remains on fentanyl drip and precedex. He has been having fever. Alternate diagnosis need to be ruled out. Septic work up repeated. LE duplex ordered to r/o DVT. MRI brain ordered to r/o encephalitis. Will discuss with ID. Cultures and procal negative. Patient is not on antibiotics at this time. UDS negative. CK elevated. Continue IVF. Patient is intubated and sedated. Weaning trial per ICU team. CT head was negative. Will continue Ativan. EEG revealed subclinical seizure on keppra. He has transaminitis due to alcohol abuse. Upon discharge patient will follow up in [facility] clinic. Dr Samantha Tabor
--- NOTE | 2017-12-03 18:14 | US ---
HISTORY: Leg pain and swelling. Evaluate for DVT PHYSICIAN(S): Anthony Bordy MD. TECHNIQUE: Duplex sonography and color-flow Doppler with graded compression were used to evaluate the deep venous systems of both lower extremities. FINDINGS: The visualized deep venous systems of both lower extremities are sonographically normal and compressible. Normal wave forms and augmentation are seen. There is no sonographic evidence for deep venous thrombosis in the visualized segments of both lower extremities. IMPRESSION: No sonographic evidence for deep venous thrombosis in the visualized segments of both lower extremities.
[2017-12-03] MEDS ORDERED: Sodium Chloride 0.9% 1,000 ML IV STA ×2 (19:03→19:04)
[2017-12-03] MEDS ORDERED: Ceftaroline 600 MG in Sodium Chloride 0.9% 100 ML IVPB SCH (22:00)
[2017-12-04] MEDS: Insulin Lispro (humaLOG) LOW Coverage SC SCH ×4 (03:00→21:43)
[2017-12-04] MEDS: Dexmedetomidine 400mcg/100mL 400 MCG/100 ML BOTTLE IV PRN ×3 (05:45→21:47)
[2017-12-04 06:08] LABS: MEAN CELL VOLUME 94.1 fl (80.0-105.0); MEAN CORPUSCULAR HEMOGLOBIN 29.6 pg (25.0-35.0); MEAN CORPUSCULAR HGB CONC 31.5 g/dl (31.0-37.0); RBC 3.71 10^6/uL (3.5-6.1); WHITE BLOOD COUNT 12.6 10^3/ul (4.5-11.0)
[2017-12-04 06:45] LABS: ALB/GLOB RATIO 1.2 (1.1-1.8); ALT/SGPT 71 U/L (7-56); AST/SGOT 57 U/L (17-59); BLOOD UREA NITROGEN 25 mg/dL (7-21); CALCIUM 8.9 mg/dL (8.4-10.5); GFR AFRICAN-AMERICAN > 60; GFR NON-AFRICAN AMERICAN > 60; MAGNESIUM 2.1 mg/dL (1.7-2.2)
[2017-12-04 07:25] LABS: INR 1.53 (0.93-1.08); PROTHROMBIN TIME 17.8 SECONDS (9.4-12.5)
[2017-12-04] MEDS: Lactated Ringer's 1,000 ML IV SCH ×3 (07:38→21:00)
--- NOTE | 2017-12-04 07:58 | CP.CCUPN ---
<Singh Traore - Last Filed: 12/04/17 13:29> CCU Subjective - Physician Review Subjective (Free Text): Singh Traore PGY1 ICU Note for Dr. Velez Patient was seen and examined in ICU. Remains sedated and intubated on vent. Difficult to arouse and restless at times. Mackenzie catheter in place. Patient had fevers with Tmax 102 over the past 24 hrs, however, sepsis work up so far is negative, and fevers attributed to DT's and ETOH withdrawal by ID. ROS could not be obtained. CCU Objective - Vital Signs / Intake & Output Vital Signs (Last 4 hours): Vital Signs Temp Pulse BP Pulse Ox 12/04/17 07:01 146/82 12/04/17 07:00 101.3 F H 124 H 98 12/04/17 06:00 101.7 F H 83 139/82 98 12/04/17 05:22 101.7 F H 122 H 143/76 98 12/04/17 05:06 102.0 F H 122 H 12/04/17 05:05 102.0 F H 12/04/17 05:00 102.0 F H 86/52 L 94 L 12/04/17 04:00 101.5 F H 120 H 140/80 98 Intake and Output (Last 8hrs): Intake & Output 12/03/17 12/04/17 12/04/17 22:59 06:59 14:59 Intake Total 2613 260 2500 Output Total 400 350 Balance 2213 260 2150 Weight 169 lb Intake: IV 2373 260 1700 Fentanyl 107 200 Left Hand 1800 Right Antecubital 1500 precedex 336 Oral 240 800 Output: Urine 400 350 Urethral (Mackenzie) 350 Urine, Voided 400 Other: # Bowel Movements 0 - Physical Exam Physical Exam Limitations: Positive for: Altered Mental Status Head: Positive for: Atraumatic, Normocephalic Pupils: Positive for: PERRL Conjunctiva: Positive for: Normal. Negative for: Injected, Icteric Ears: Positive for: Normal Mouth: Positive for: Normal Teeth, Other (mild dry oral mucosa, ET/OG tube in place) Pharnyx: Positive for: Normal Nose (External): Positive for: Atraumatic Nose (Internal): Positive for: Normal Inspection Neck: Negative for: JVD Respiratory/Chest: Positive for: Good Air Exchange, Other (intubated on vent). Negative for: Respiratory Distress, Accessory Muscle Use, Wheezes, Rales, Retracting, Rhonchi, Tachypneic Cardiovascular: Positive for: Normal S1, S2, Tachycardic. Negative for: Murmurs Abdomen: Positive for: Normal Bowel Sounds. Negative for: Tenderness, Distention, Peritoneal Signs, Rebound, Guarding Genitourinary Male: Positive for: Other (mackenzie catheter in place ) Back: Positive for: Normal Inspection. Negative for: Midline Tenderness Upper Extremity: Positive for: Normal Inspection, NORMAL PULSES. Negative for: Cyanosis, Edema Lower Extremity: Positive for: Normal Inspection, NORMAL PULSES. Negative for: Edema Neurological: Positive for: Other (sedated on fentanyl and precedex ) Skin: Positive for: Warm, Normal Color, Diaphoretic Psychiatric: Positive for: Other (sedated). Negative for: Alert, Oriented x 3, Normal Insight, Normal Concentration - Medications Active Medications: Active Medications Generic Name Dose Route Start Last Admin Trade Name Freq PRN Reason Stop Dose Admin Ascorbic Acid 500 mg 11/28/17 11:30 12/03/17 10:29 Vitamin C 500 Mg Tab PO 500 mg DAILY SHIV Administration Bacitracin 1 ea 11/28/17 08:51 11/28/17 09:34 Bacitracin TOP 1 ea Q6 PRN Administration Swelling Folic Acid 1 mg 12/01/17 10:15 12/03/17 10:30 Folic Acid PO 1 mg DAILY SHIV Administration Heparin Sodium (Porcine) 5,000 units 12/03/17 08:15 12/04/17 07:40 Heparin SC 5,000 units Q8 SHIV Administration Protocol Hydralazine HCl 10 mg 11/29/17 14:56 12/02/17 12:56 Apresoline IVP 10 mg Q6 PRN Administration give if SBP >160 Dexmedetomidine HCl 400 mcg in 100 mls @ 3.629 mls/hr 11/26/17 09:21 05:45 Precedex 4 Mcg/Ml (100 Ml) IV 1 mcg/kg/hr .Q24H PRN 18.144 mls/hr Agitation Administration Protocol 0.2 MCG/KG/HR Fentanyl Citrate 1,000 mcg in 100 mls @ 5 mls/hr 12/01/17 08:08 12/03/17 23: 56 Fentanyl Citrate/Sodium Chloride 1 Mg/100 Ml IV 100 mcg/hr .Q20H PRN 10 mls/hr TITRATE PER MD ORDER Administration Protocol 50 MCG/HR Acetaminophen 1,000 mg in 100 mls @ 400 mls/hr 12/03/17 08:37 12/04/17 02:53 Ofirmev IVPB 12/05/17 08:38 400 mls/hr Q6H PRN Administration fever Lactated Ringer's 1,000 mls @ 150 mls/hr 12/03/17 11:30 12/04/17 07:38 Lactated Ringer's IV 150 mls/hr .Q6H40M SHIV Administration Levetiracetam 750 mg/ Sodium 107.5 mls @ 460 mls/hr 12/03/17 11:45 12/03/17 22:00 Chloride IV 460 mls/hr Q12 SHIV Administration Ceftaroline Fosamil 600 mg/ 100 mls @ 100 mls/hr 12/04/17 10:00 Sodium Chloride IVPB Q12 [facility] Protocol Insulin Human Lispro 0 units 11/26/17 09:00 12/03/17 22:05 Humalog Low SC Not Given Q6H [facility] Protocol Levalbuterol HCl 0.63 mg 12/02/17 09:55 12/03/17 13:48 Xopenex IH 0.63 mg [id number] PRN Administration Shortness of Breath Lorazepam 4 mg 12/02/17 15:25 12/04/17 05:00 Ativan IVP 4 mg Q4H PRN Administration Agitation Metoprolol Tartrate 5 mg 12/02/17 16:00 12/03/17 20:25 Lopressor IVP Not Given Q4 [facility] Multivitamins/Minerals 1 tab 11/29/17 08:00 12/03/17 10:29 Therapeutic-M Tab PO 1 tab 0800 SHIV Administration Pantoprazole Sodium 40 mg 11/22/17 10:00 12/03/17 10:30 Protonix Inj IVP 40 mg DAILY SHIV Administration Thiamine HCl 100 mg 11/28/17 14:00 12/03/17 18:01 Vitamin B1 Tab PO 100 mg TID SHIV Administration Zinc Sulfate 220 mg 11/28/17 11:30 12/03/17 10:29 Zinc Sulfate 220 Mg Cap PO 220 mg DAILY [facility] Administration - Patient Studies Lab Studies: Microbiology Studies 12/02/17 03:30 Blood Culture - Preliminary Blood-Venous NO GROWTH AFTER 48 HOURS 12/02/17 03:00 Blood Culture - Preliminary Blood-Venous NO GROWTH AFTER 48 HOURS 11/30/17 21:45 Blood Culture - Preliminary Blood-Venous NO GROWTH AFTER 3 DAYS 11/30/17 22:00 Blood Culture - Preliminary Blood-Venous NO GROWTH AFTER 3 DAYS 12/02/17 02:00 Urine Culture - Final Urine,Catheterized No Growth (<1,000 CFU/ML) Lab Studies 12/04/17 12/04/17 12/04/17 Range/Units 05:30 05:30 05:30 WBC 12.6 H D (4.5-11.0) 10^3/ul RBC 3.71 (3.5-6.1) 10^6/uL Hgb 11.0 L (14.0-18.0) g/dL Hct 34.9 L (42.0-52.0) % MCV 94.1 (80.0-105.0) fl MCH 29.6 (25.0-35.0) pg MCHC 31.5 (31.0-37.0) g/dl RDW 14.0 (11.5-14.5) % Plt Count 259 (120.0-450.0) 10^3/uL MPV 11.0 (7.0-11.0) fl ESR (0.00-15.0) mm/hr PT 17.8 H (9.4-12.5) SECONDS INR 1.53 H (0.93-1.08) pO2 (30-55) mm/Hg VBG pH (7.32-7.43) VBG pCO2 (40-60) VBG HCO3 (21-28) mmol/l VBG Total CO2 (22-28) mmol.L VBG O2 Sat (Calc) (40-65) % VBG Base Excess (0.0-2.0) mmol/L VBG Potassium (3.6-5.2) mmol/L Sodium 148 (132-148) mmol/L Chloride 113 H (98-107) mmol/L Glucose (75-110) mg/dl Lactate (0.7-2.1) mmol/L FiO2 % Potassium 3.9 (3.6-5.0) mmol/L Carbon Dioxide 26 (21-33) mmol/L Anion Gap 13 (10-20) BUN 25 H (7-21) mg/dL Creatinine 0.9 (0.8-1.5) mg/dl Est GFR ( Amer) > 60 Est GFR (Non-Af Amer) > 60 POC Glucose (mg/dL) (65-110) mg/dL Random Glucose 108 (70-110) mg/dL Calcium 8.9 (8.4-10.5) mg/dL Phosphorus 3.2 (2.5-4.5) mg/dL Magnesium 2.1 (1.7-2.2) mg/dL Total Bilirubin 0.6 (0.2-1.3) mg/dL AST 57 (17-59) U/L ALT 71 H (7-56) U/L Alkaline Phosphatase 41 (38-126) U/L Total Creatine Kinase (35-230) U/L CK-MB (CK-2) (0.0-3.6) ng/mL CK-MB (CK-2) % Total Protein 5.7 L (5.8-8.3) g/dL Albumin 3.0 (3.0-4.8) g/dL Globulin 2.6 gm/dL Albumin/Globulin Ratio 1.2 (1.1-1.8) Procalcitonin (0.19-0.49) NG/ML Venous Blood Potassium (3.6-5.2) mmol/L 12/04/17 12/03/17 12/03/17 Range/Units 03:09 20:38 14:57 WBC (4.5-11.0) 10^3/ul RBC (3.5-6.1) 10^6/uL Hgb (14.0-18.0) g/dL Hct (42.0-52.0) % MCV (80.0-105.0) fl MCH (25.0-35.0) pg MCHC (31.0-37.0) g/dl RDW (11.5-14.5) % Plt Count (120.0-450.0) 10^3/uL MPV (7.0-11.0) fl ESR (0.00-15.0) mm/hr PT (9.4-12.5) SECONDS INR (0.93-1.08) pO2 (30-55) mm/Hg VBG pH (7.32-7.43) VBG pCO2 (40-60) VBG HCO3 (21-28) mmol/l VBG Total CO2 (22-28) mmol.L VBG O2 Sat (Calc) (40-65) % VBG Base Excess (0.0-2.0) mmol/L VBG Potassium (3.6-5.2) mmol/L Sodium (132-148) mmol/L Chloride (98-107) mmol/L Glucose (75-110) mg/dl Lactate (0.7-2.1) mmol/L FiO2 % Potassium (3.6-5.0) mmol/L Carbon Dioxide (21-33) mmol/L Anion Gap (10-20) BUN (7-21) mg/dL Creatinine (0.8-1.5) mg/dl Est GFR ( Amer) Est GFR (Non-Af Amer) POC Glucose (mg/dL) 102 110 98 (65-110) mg/dL Random Glucose (70-110) mg/dL Calcium (8.4-10.5) mg/dL Phosphorus (2.5-4.5) mg/dL Magnesium (1.7-2.2) mg/dL Total Bilirubin (0.2-1.3) mg/dL AST (17-59) U/L ALT (7-56) U/L Alkaline Phosphatase (38-126) U/L Total Creatine Kinase (35-230) U/L CK-MB (CK-2) (0.0-3.6) ng/mL CK-MB (CK-2) % Total Protein (5.8-8.3) g/dL Albumin (3.0-4.8) g/dL Globulin gm/dL Albumin/Globulin Ratio (1.1-1.8) Procalcitonin (0.19-0.49) NG/ML Venous Blood Potassium (3.6-5.2) mmol/L 12/03/17 12/03/17 12/03/17 Range/Units 14:20 14:20 10:30 WBC (4.5-11.0) 10^3/ul RBC (3.5-6.1) 10^6/uL Hgb (14.0-18.0) g/dL Hct (42.0-52.0) % MCV (80.0-105.0) fl MCH (25.0-35.0) pg MCHC (31.0-37.0) g/dl RDW (11.5-14.5) % Plt Count (120.0-450.0) 10^3/uL MPV (7.0-11.0) fl ESR 51 H (0.00-15.0) mm/hr PT (9.4-12.5) SECONDS INR (0.93-1.08) pO2 (30-55) mm/Hg VBG pH (7.32-7.43) VBG pCO2 (40-60) VBG HCO3 (21-28) mmol/l VBG Total CO2 (22-28) mmol.L VBG O2 Sat (Calc) (40-65) % VBG Base Excess (0.0-2.0) mmol/L VBG Potassium (3.6-5.2) mmol/L Sodium 147 (132-148) mmol/L Chloride 113 H (98-107) mmol/L Glucose (75-110) mg/dl Lactate (0.7-2.1) mmol/L FiO2 % Potassium 3.7 (3.6-5.0) mmol/L Carbon Dioxide 25 (21-33) mmol/L Anion Gap 13 (10-20) BUN 29 H (7-21) mg/dL Creatinine 0.9 (0.8-1.5) mg/dl Est GFR ( Amer) > 60 Est GFR (Non-Af Amer) > 60 POC Glucose (mg/dL) (65-110) mg/dL Random Glucose 103 (70-110) mg/dL Calcium 8.9 (8.4-10.5) mg/dL Phosphorus (2.5-4.5) mg/dL Magnesium (1.7-2.2) mg/dL Total Bilirubin (0.2-1.3) mg/dL AST (17-59) U/L ALT (7-56) U/L Alkaline Phosphatase (38-126) U/L Total Creatine Kinase (35-230) U/L CK-MB (CK-2) (0.0-3.6) ng/mL CK-MB (CK-2) % Total Protein (5.8-8.3) g/dL Albumin (3.0-4.8) g/dL Globulin gm/dL Albumin/Globulin Ratio (1.1-1.8) Procalcitonin 0.09 L (0.19-0.49) NG/ML Venous Blood Potassium (3.6-5.2) mmol/L 12/03/17 12/03/17 12/03/17 Range/Units 10:30 08:56 06:30 WBC (4.5-11.0) 10^3/ul RBC (3.5-6.1) 10^6/uL Hgb (14.0-18.0) g/dL Hct (42.0-52.0) % MCV (80.0-105.0) fl MCH (25.0-35.0) pg MCHC (31.0-37.0) g/dl RDW (11.5-14.5) % Plt Count (120.0-450.0) 10^3/uL MPV (7.0-11.0) fl ESR (0.00-15.0) mm/hr PT (9.4-12.5) SECONDS INR (0.93-1.08) pO2 66 H (30-55) mm/Hg VBG pH 7.41 (7.32-7.43) VBG pCO2 43.0 (40-60) VBG HCO3 27.3 (21-28) mmol/l VBG Total CO2 28.6 H (22-28) mmol.L VBG O2 Sat (Calc) 96.7 H (40-65) % VBG Base Excess 2.2 H (0.0-2.0) mmol/L VBG Potassium 4.0 (3.6-5.2) mmol/L Sodium 146.0 (132-148) mmol/L Chloride 115.0 H (98-107) mmol/L Glucose 123 H (75-110) mg/dl Lactate 0.7 (0.7-2.1) mmol/L FiO2 21.0 % Potassium (3.6-5.0) mmol/L Carbon Dioxide (21-33) mmol/L Anion Gap (10-20) BUN (7-21) mg/dL Creatinine (0.8-1.5) mg/dl Est GFR ( Amer) Est GFR (Non-Af Amer) POC Glucose (mg/dL) 103 (65-110) mg/dL Random Glucose (70-110) mg/dL Calcium (8.4-10.5) mg/dL Phosphorus (2.5-4.5) mg/dL Magnesium (1.7-2.2) mg/dL Total Bilirubin (0.2-1.3) mg/dL AST (17-59) U/L ALT (7-56) U/L Alkaline Phosphatase (38-126) U/L Total Creatine Kinase 543 H (35-230) U/L CK-MB (CK-2) 2.0 (0.0-3.6) ng/mL CK-MB (CK-2) % Cancelled Total Protein (5.8-8.3) g/dL Albumin (3.0-4.8) g/dL Globulin gm/dL Albumin/Globulin Ratio (1.1-1.8) Procalcitonin (0.19-0.49) NG/ML Venous Blood Potassium 4.0 (3.6-5.2) mmol/L Laboratory Results - last 24 hr 12/03/17 12/03/17 12/03/17 06:30 08:56 10:30 WBC RBC Hgb Hct MCV MCH MCHC RDW Plt Count MPV ESR PT INR pO2 66 H VBG pH 7.41 VBG pCO2 43.0 VBG HCO3 27.3 VBG Total CO2 28.6 H VBG O2 Sat (Calc) 96.7 H VBG Base Excess 2.2 H VBG Potassium 4.0 Sodium 146.0 Chloride 115.0 H Glucose 123 H Lactate 0.7 FiO2 21.0 Potassium Carbon Dioxide Anion Gap BUN Creatinine Est GFR ( Amer) Est GFR (Non-Af Amer) POC Glucose (mg/dL) 103 Random Glucose Calcium Phosphorus Magnesium Total Bilirubin AST ALT Alkaline Phosphatase Total Creatine Kinase 543 H CK-MB (CK-2) 2.0 CK-MB (CK-2) % Cancelled Total Protein Albumin Globulin Albumin/Globulin Ratio Procalcitonin Venous Blood Potassium 4.0 12/03/17 12/03/17 12/03/17 10:30 14:20 14:20 WBC RBC Hgb Hct MCV MCH MCHC RDW Plt Count MPV ESR 51 H PT INR pO2 VBG pH VBG pCO2 VBG HCO3 VBG Total CO2 VBG O2 Sat (Calc) VBG Base Excess VBG Potassium Sodium 147 Chloride 113 H Glucose Lactate FiO2 Potassium 3.7 Carbon Dioxide 25 Anion Gap 13 BUN 29 H Creatinine 0.9 Est GFR ( Amer) > 60 Est GFR (Non-Af Amer) > 60 POC Glucose (mg/dL) Random Glucose 103 Calcium 8.9 Phosphorus Magnesium Total Bilirubin AST ALT Alkaline Phosphatase Total Creatine Kinase CK-MB (CK-2) CK-MB (CK-2) % Total Protein Albumin Globulin Albumin/Globulin Ratio Procalcitonin 0.09 L Venous Blood Potassium 12/03/17 12/03/17 12/04/17 14:57 20:38 03:09 WBC RBC Hgb Hct MCV MCH MCHC RDW Plt Count MPV ESR PT INR pO2 VBG pH VBG pCO2 VBG HCO3 VBG Total CO2 VBG O2 Sat (Calc) VBG Base Excess VBG Potassium Sodium Chloride Glucose Lactate FiO2 Potassium Carbon Dioxide Anion Gap BUN Creatinine Est GFR ( Amer) Est GFR (Non-Af Amer) POC Glucose (mg/dL) 98 110 102 Random Glucose Calcium Phosphorus Magnesium Total Bilirubin AST ALT Alkaline Phosphatase Total Creatine Kinase CK-MB (CK-2) CK-MB (CK-2) % Total Protein Albumin Globulin Albumin/Globulin Ratio Procalcitonin Venous Blood Potassium 12/04/17 12/04/17 12/04/17 05:30 05:30 05:30 WBC 12.6 H D RBC 3.71 Hgb 11.0 L Hct 34.9 L MCV 94.1 MCH 29.6 MCHC 31.5 RDW 14.0 Plt Count 259 MPV 11.0 ESR PT 17.8 H INR 1.53 H pO2 VBG pH VBG pCO2 VBG HCO3 VBG Total CO2 VBG O2 Sat (Calc) VBG Base Excess VBG Potassium Sodium 148 Chloride 113 H Glucose Lactate FiO2 Potassium 3.9 Carbon Dioxide 26 Anion Gap 13 BUN 25 H Creatinine 0.9 Est GFR ( Amer) > 60 Est GFR (Non-Af Amer) > 60 POC Glucose (mg/dL) Random Glucose 108 Calcium 8.9 Phosphorus 3.2 Magnesium 2.1 Total Bilirubin 0.6 AST 57 ALT 71 H Alkaline Phosphatase 41 Total Creatine Kinase CK-MB (CK-2) CK-MB (CK-2) % Total Protein 5.7 L Albumin 3.0 Globulin 2.6 Albumin/Globulin Ratio 1.2 Procalcitonin Venous Blood Potassium Fingerstick Blood Sugar Results: 102 Review of Systems - Review of Systems Systems not reviewed;Unavailable: Intubated Critical Care Progress Note - Ventilator Checklist Head of Bed 30 Degrees: Yes Daily Sedation Vacation: Yes Daily Assessment of Readiness to Wean: Yes Daily Spontaneous Breathing Trial: Yes PUD Prophalyxis: Yes DVT Prophylaxis: Yes Oral Care with Chlorhexidine Gluconate {CHG}: Yes - Vent Settings MODE:: PRVC - Extremities/Vascular Does the Patient have a Central Venous Catheter?: No Does the Patient need a Central Venous Catheter?: No Does the Patient have a Mackenzie Catheter?: Yes Does the Patient need a Mackenzie Catheter?: Yes - Restraints Justification for Restraints: High risk for self extubation, High risk for removing IV access - Prophylaxis GI Prophylaxis GI: PPI - Prophylaxis DVT Prophylaxis DVT: Heparin SQ - Nutrition Nutrition: Nutrition Category Date Time Status NPO Diet [DIET] Diets 11/21/17 Breakfast Ordered Assessment/Plan - Assessment and Plan (Free Text) Assessment: 62yo M with PMHx of Bipolar disorder and ETOH abuse in ICU for DTs 2/2 ETOH withdrawal. Patient initially admitted to psych for suicidal ideation then transferred to in-patient due to severe ETOH withdrawal with DTs requiring high- dose sedation and intubation. Rhabdomyolysis was also noted, but has been improving. CXR Showing development of RLL consolidation. Plan: Neuro: - Intubated and sedated on fentanyl and precedex - will continue attempting to wean off sedation daily - Ativan prn to avoid over-sedation - Neuro consulted- recs appreciated - EEG showed subclinical seizure - MRI brain showed persistent b/l maxially, ethomoid and sphoenoid sinusitis w/ mastoid effusions - Keppra 750mg BID for seizure precautions - Continue CIWA protocol, seizure precaution, aspiration precaution - Head CT negative for acute pathology Cardio: - HD stable - Maintain MAP> 65mmHg - Elevated HR likely 2/2 withdrawals - Hydralazine PRN for BP control - Lopressor PRN added for HR and BP control Pulm: - Intubated- wean as tolerated,currently tolerating PS well - Protective lung ventilation strategy, HOB elevated, daily oral care, and aspiration precautions, DVT and GI ppx, as well as daily attempts to wean off vent and sedation - CXR showed interval development of RLL consolidation - Xopenex PRN and small R pleural effusions - will start ceftaroline, Meropenem and Linezolid as well as tobramycin inhaled for new CXR finding of RLL consolidation - Maintain spO2>90% GI: - cont OG tube feeds - Thiamine, Folic acid, and MV for ETOH withdrawal and DTs Heme: - Hgb stable - platelets stable Nephro: - Rhabdomyolysis improving, will start LR - daily CPK to monitor if cause of fever is rhabdo - Hypernatremia, cont free water and added LR - Will continue to monitor electrolytes and replace as needed - Continue to monitor I&O ID: - Fevers likely 2/2 withdrawals; blood cultures and UA negative so far, but CXR today finds RLL consolidation; will start on Ceftaroline, Meropenem, Linezolid and Tobramycin inhaled and monitor fevers - mild leukocytosis - Bacitracin, Zinc, MV and vit C for skin - ID consulted- recs appreciated Psych: - Hx of Bipolar - Psych consulted- recs appreciated - will evaluate once off of sedation GI ppx: Protonix DVT ppx: Heparin SC and SCDs Diet: Tube feeds Dispo: Will try to wean off of sedation as tolerated. Will trial wean off vent daily. Patient was seen, examined, and discussed with attending, Dr. Agustin Traore PGY1 Pager [phone] <Mike Velez - Last Filed: 12/05/17 12:27> CCU Objective - Vital Signs / Intake & Output Vital Signs (Last 4 hours): Vital Signs Pulse Resp BP Pulse Ox 12/05/17 11:46 28 H 100 12/05/17 11:28 109 H 149/100 H Intake and Output (Last 8hrs): Intake & Output 12/04/17 12/05/17 12/05/17 22:59 06:59 14:59 Intake Total 3308 100 2348 Output Total 550 700 Balance 2758 100 1648 Intake: IV 2948 100 1948 Fentanyl 228 Right Antecubital 1500 Right Forearm 2748 precedex 120 Oral 400 Tube Feeding 360 Output: Urine 550 700 Urethral (Mackenzie) 550 700 Other: # Bowel Movements 0 - Medications Active Medications: Active Medications Generic Name Dose Route Start Last Admin Trade Name Freq PRN Reason Stop Dose Admin Ascorbic Acid 500 mg 11/28/17 11:30 12/05/17 09:25 Vitamin C 500 Mg Tab PO 500 mg DAILY SHIV Administration Bacitracin 1 ea 11/28/17 08:51 11/28/17 09:34 Bacitracin TOP 1 ea Q6 PRN Administration Swelling Cyproheptadine HCl 4 mg 12/05/17 11:15 Periactin PO Q8H SHIV Docusate Sodium 100 mg 12/05/17 18:00 Colace Liquid PO BID SHIV Folic Acid 1 mg 12/01/17 10:15 12/05/17 09:25 Folic Acid PO 1 mg DAILY SHIV Administration Heparin Sodium (Porcine) 5,000 units 12/03/17 08:15 12/05/17 06:07 Heparin SC 5,000 units Q8 SHIV Administration Protocol Hydralazine HCl 10 mg 11/29/17 14:56 12/02/17 12:56 Apresoline IVP 10 mg Q6 PRN Administration give if SBP >160 Dexmedetomidine HCl 400 mcg in 100 mls @ 3.629 mls/hr 11/26/17 09:21 07:59 Precedex 4 Mcg/Ml (100 Ml) IV 1 mcg/kg/hr .Q24H PRN 18.144 mls/hr Agitation Administration Protocol 0.2 MCG/KG/HR Lactated Ringer's 1,000 mls @ 150 mls/hr 12/03/17 11:30 12/05/17 09:53 Lactated Ringer's IV 150 mls/hr .Q6H40M SHIV Administration Meropenem 500 mg/ Sodium 100 mls @ 100 mls/hr 12/04/17 22:00 12/05/17 06:08 Chloride IVPB 100 mls/hr Q8 SHIV Administration Protocol Linezolid 600 mg in 300 mls @ 200 mls/hr 12/04/17 22:00 12/05/17 09:24 Zyvox 600mg/300ml D5w IVPB 200 mls/hr Q12 SHIV Administration Protocol Insulin Human Lispro 0 units 11/26/17 09:00 12/05/17 10:10 Humalog Low SC Not Given Q6H SHIV Protocol Levalbuterol HCl 0.63 mg 12/02/17 09:55 12/05/17 00:35 Xopenex IH 0.63 mg [id number] PRN Administration Shortness of Breath Levetiracetam 750 mg 12/04/17 22:00 12/05/17 09:24 Keppra PO 750 mg Q12 SHIV Administration Lorazepam 4 mg 12/02/17 15:25 12/05/17 09:47 Ativan IVP 4 mg Q4H PRN Administration Agitation Multivitamins/Minerals 1 tab 11/29/17 08:00 12/05/17 09:25 Therapeutic-M Tab PO 1 tab 0800 SHIV Administration Pantoprazole Sodium 40 mg 11/22/17 10:00 12/05/17 09:26 Protonix Inj IVP 40 mg DAILY SHIV Administration Polyethylene Glycol 17 gm 12/05/17 18:00 Miralax PO BID SHIV Propranolol HCl 40 mg 12/05/17 11:00 12/05/17 11:28 Inderal PO 40 mg BID SHIV Administration Thiamine HCl 100 mg 11/28/17 14:00 12/05/17 09:26 Vitamin B1 Tab PO 100 mg TID SHIV Administration Tobramycin Sulfate 0.08 gm 12/05/17 11:00 12/05/17 11:44 Tobramycin Inj IH 0.08 gm [id number] SHIV Administration Zinc Sulfate 220 mg 11/28/17 11:30 12/05/17 09:25 Zinc Sulfate 220 Mg Cap PO 220 mg DAILY SHIV Administration - Patient Studies Lab Studies: Microbiology Studies 12/02/17 03:30 Blood Culture - Preliminary Blood-Venous NO GROWTH AFTER 3 DAYS 12/02/17 03:00 Blood Culture - Preliminary Blood-Venous NO GROWTH AFTER 3 DAYS 12/04/17 14:09 Gram Stain - Final Sputum 11/30/17 21:45 Blood Culture - Preliminary Blood-Venous NO GROWTH AFTER 4 DAYS 11/30/17 22:00 Blood Culture - Preliminary Blood-Venous NO GROWTH AFTER 4 DAYS Lab Studies 12/05/17 12/05/17 12/05/17 Range/Units 10:09 06:45 06:45 WBC (4.5-11.0) 10^3/ul RBC (3.5-6.1) 10^6/uL Hgb (14.0-18.0) g/dL Hct (42.0-52.0) % MCV (80.0-105.0) fl MCH (25.0-35.0) pg MCHC (31.0-37.0) g/dl RDW (11.5-14.5) % Plt Count (120.0-450.0) 10^3/uL MPV (7.0-11.0) fl PT 18.5 H (9.4-12.5) SECONDS INR 1.59 H (0.93-1.08) pCO2 (35-45) mm/Hg pO2 (80-100) mm/Hg HCO3 (21-28) mmol/L ABG pH (7.35-7.45) ABG Total CO2 (22-28) mmol.L ABG O2 Saturation (95-98) % ABG O2 Content (15-23) ML/dl ABG Base Excess (-2.0-3.0) mmol/L ABG Hemoglobin (11.7-17.4) g/dL ABG Carboxyhemoglobin (0.5-1.5) % POC ABG HHb (Measured) (0-5) % ABG Methemoglobin (0.0-3.0) % ABG O2 Capacity (16-24) mL/dl Hgb O2 Saturation (95.0-98.0) % FiO2 % Sodium 143 (132-148) mmol/L Potassium 3.8 (3.6-5.0) mmol/L Chloride 108 H (98-107) mmol/L Carbon Dioxide 28 (21-33) mmol/L Anion Gap 10 (10-20) BUN 12 (7-21) mg/dL Creatinine 0.7 L (0.8-1.5) mg/dl Est GFR ( Amer) > 60 Est GFR (Non-Af Amer) > 60 POC Glucose (mg/dL) 125 H (65-110) mg/dL Random Glucose 143 H (70-110) mg/dL Calcium 8.6 (8.4-10.5) mg/dL Phosphorus 2.9 (2.5-4.5) mg/dL Magnesium 2.0 (1.7-2.2) mg/dL Total Bilirubin 0.7 (0.2-1.3) mg/dL AST 50 (17-59) U/L ALT 75 H (7-56) U/L Alkaline Phosphatase 48 (38-126) U/L Total Creatine Kinase (35-230) U/L Total Protein 5.1 L (5.8-8.3) g/dL Albumin 2.6 L (3.0-4.8) g/dL Globulin 2.5 gm/dL Albumin/Globulin Ratio 1.0 L (1.1-1.8) 12/05/17 12/05/17 12/05/17 Range/Units 06:45 06:30 06:15 WBC 10.1 (4.5-11.0) 10^3/ul RBC 3.33 L (3.5-6.1) 10^6/uL Hgb 10.0 L (14.0-18.0) g/dL Hct 30.5 L (42.0-52.0) % MCV 91.6 (80.0-105.0) fl MCH 30.0 (25.0-35.0) pg MCHC 32.8 (31.0-37.0) g/dl RDW 13.7 (11.5-14.5) % Plt Count 266 (120.0-450.0) 10^3/uL MPV 10.8 (7.0-11.0) fl PT (9.4-12.5) SECONDS INR (0.93-1.08) pCO2 42 (35-45) mm/Hg pO2 190.0 H (80-100) mm/Hg HCO3 26.6 (21-28) mmol/L ABG pH 7.41 (7.35-7.45) ABG Total CO2 27.9 (22-28) mmol.L ABG O2 Saturation 100.1 H (95-98) % ABG O2 Content 13.4 L (15-23) ML/dl ABG Base Excess 1.7 (-2.0-3.0) mmol/L ABG Hemoglobin 9.5 L (11.7-17.4) g/dL ABG Carboxyhemoglobin 1.6 H (0.5-1.5) % POC ABG HHb (Measured) -0.1 L (0-5) % ABG Methemoglobin 1.4 (0.0-3.0) % ABG O2 Capacity 13.4 L (16-24) mL/dl Hgb O2 Saturation 97.0 (95.0-98.0) % FiO2 60.0 % Sodium (132-148) mmol/L Potassium (3.6-5.0) mmol/L Chloride (98-107) mmol/L Carbon Dioxide (21-33) mmol/L Anion Gap (10-20) BUN (7-21) mg/dL Creatinine (0.8-1.5) mg/dl Est GFR ( Amer) Est GFR (Non-Af Amer) POC Glucose (mg/dL) (65-110) mg/dL Random Glucose (70-110) mg/dL Calcium (8.4-10.5) mg/dL Phosphorus (2.5-4.5) mg/dL Magnesium (1.7-2.2) mg/dL Total Bilirubin (0.2-1.3) mg/dL AST (17-59) U/L ALT (7-56) U/L Alkaline Phosphatase (38-126) U/L Total Creatine Kinase 215 (35-230) U/L Total Protein (5.8-8.3) g/dL Albumin (3.0-4.8) g/dL Globulin gm/dL Albumin/Globulin Ratio (1.1-1.8) 12/05/17 12/04/17 12/04/17 Range/Units 03:00 20:53 14:56 WBC (4.5-11.0) 10^3/ul RBC (3.5-6.1) 10^6/uL Hgb (14.0-18.0) g/dL Hct (42.0-52.0) % MCV (80.0-105.0) fl MCH (25.0-35.0) pg MCHC (31.0-37.0) g/dl RDW (11.5-14.5) % Plt Count (120.0-450.0) 10^3/uL MPV (7.0-11.0) fl PT (9.4-12.5) SECONDS INR (0.93-1.08) pCO2 (35-45) mm/Hg pO2 (80-100) mm/Hg HCO3 (21-28) mmol/L ABG pH (7.35-7.45) ABG Total CO2 (22-28) mmol.L ABG O2 Saturation (95-98) % ABG O2 Content (15-23) ML/dl ABG Base Excess (-2.0-3.0) mmol/L ABG Hemoglobin (11.7-17.4) g/dL ABG Carboxyhemoglobin (0.5-1.5) % POC ABG HHb (Measured) (0-5) % ABG Methemoglobin (0.0-3.0) % ABG O2 Capacity (16-24) mL/dl Hgb O2 Saturation (95.0-98.0) % FiO2 % Sodium (132-148) mmol/L Potassium (3.6-5.0) mmol/L Chloride (98-107) mmol/L Carbon Dioxide (21-33) mmol/L Anion Gap (10-20) BUN (7-21) mg/dL Creatinine (0.8-1.5) mg/dl Est GFR ( Amer) Est GFR (Non-Af Amer) POC Glucose (mg/dL) 102 115 H 124 H (65-110) mg/dL Random Glucose (70-110) mg/dL Calcium (8.4-10.5) mg/dL Phosphorus (2.5-4.5) mg/dL Magnesium (1.7-2.2) mg/dL Total Bilirubin (0.2-1.3) mg/dL AST (17-59) U/L ALT (7-56) U/L Alkaline Phosphatase (38-126) U/L Total Creatine Kinase (35-230) U/L Total Protein (5.8-8.3) g/dL Albumin (3.0-4.8) g/dL Globulin gm/dL Albumin/Globulin Ratio (1.1-1.8) 12/04/17 Range/Units 09:09 WBC (4.5-11.0) 10^3/ul RBC (3.5-6.1) 10^6/uL Hgb (14.0-18.0) g/dL Hct (42.0-52.0) % MCV (80.0-105.0) fl MCH (25.0-35.0) pg MCHC (31.0-37.0) g/dl RDW (11.5-14.5) % Plt Count (120.0-450.0) 10^3/uL MPV (7.0-11.0) fl PT (9.4-12.5) SECONDS INR (0.93-1.08) pCO2 (35-45) mm/Hg pO2 (80-100) mm/Hg HCO3 (21-28) mmol/L ABG pH (7.35-7.45) ABG Total CO2 (22-28) mmol.L ABG O2 Saturation (95-98) % ABG O2 Content (15-23) ML/dl ABG Base Excess (-2.0-3.0) mmol/L ABG Hemoglobin (11.7-17.4) g/dL ABG Carboxyhemoglobin (0.5-1.5) % POC ABG HHb (Measured) (0-5) % ABG Methemoglobin (0.0-3.0) % ABG O2 Capacity (16-24) mL/dl Hgb O2 Saturation (95.0-98.0) % FiO2 % Sodium (132-148) mmol/L Potassium (3.6-5.0) mmol/L Chloride (98-107) mmol/L Carbon Dioxide (21-33) mmol/L Anion Gap (10-20) BUN (7-21) mg/dL Creatinine (0.8-1.5) mg/dl Est GFR ( Amer) Est GFR (Non-Af Amer) POC Glucose (mg/dL) 103 (65-110) mg/dL Random Glucose (70-110) mg/dL Calcium (8.4-10.5) mg/dL Phosphorus (2.5-4.5) mg/dL Magnesium (1.7-2.2) mg/dL Total Bilirubin (0.2-1.3) mg/dL AST (17-59) U/L ALT (7-56) U/L Alkaline Phosphatase (38-126) U/L Total Creatine Kinase (35-230) U/L Total Protein (5.8-8.3) g/dL Albumin (3.0-4.8) g/dL Globulin gm/dL Albumin/Globulin Ratio (1.1-1.8) Laboratory Results - last 24 hr 12/04/17 12/04/17 12/04/17 09:09 14:56 20:53 WBC RBC Hgb Hct MCV MCH MCHC RDW Plt Count MPV PT INR pCO2 pO2 HCO3 ABG pH ABG Total CO2 ABG O2 Saturation ABG O2 Content ABG Base Excess ABG Hemoglobin ABG Carboxyhemoglobin POC ABG HHb (Measured) ABG Methemoglobin ABG O2 Capacity Hgb O2 Saturation FiO2 Sodium Potassium Chloride Carbon Dioxide Anion Gap BUN Creatinine Est GFR ( Amer) Est GFR (Non-Af Amer) POC Glucose (mg/dL) 103 124 H 115 H Random Glucose Calcium Phosphorus Magnesium Total Bilirubin AST ALT Alkaline Phosphatase Total Creatine Kinase Total Protein Albumin Globulin Albumin/Globulin Ratio 12/05/17 12/05/17 12/05/17 03:00 06:15 06:30 WBC RBC Hgb Hct MCV MCH MCHC RDW Plt Count MPV PT INR pCO2 42 pO2 190.0 H HCO3 26.6 ABG pH 7.41 ABG Total CO2 27.9 ABG O2 Saturation 100.1 H ABG O2 Content 13.4 L ABG Base Excess 1.7 ABG Hemoglobin 9.5 L ABG Carboxyhemoglobin 1.6 H POC ABG HHb (Measured) -0.1 L ABG Methemoglobin 1.4 ABG O2 Capacity 13.4 L Hgb O2 Saturation 97.0 FiO2 60.0 Sodium Potassium Chloride Carbon Dioxide Anion Gap BUN Creatinine Est GFR ( Amer) Est GFR (Non-Af Amer) POC Glucose (mg/dL) 102 Random Glucose Calcium Phosphorus Magnesium Total Bilirubin AST ALT Alkaline Phosphatase Total Creatine Kinase 215 Total Protein Albumin Globulin Albumin/Globulin Ratio 12/05/17 12/05/17 12/05/17 06:45 06:45 06:45 WBC 10.1 RBC 3.33 L Hgb 10.0 L Hct 30.5 L MCV 91.6 MCH 30.0 MCHC 32.8 RDW 13.7 Plt Count 266 MPV 10.8 PT 18.5 H INR 1.59 H pCO2 pO2 HCO3 ABG pH ABG Total CO2 ABG O2 Saturation ABG O2 Content ABG Base Excess ABG Hemoglobin ABG Carboxyhemoglobin POC ABG HHb (Measured) ABG Methemoglobin ABG O2 Capacity Hgb O2 Saturation FiO2 Sodium 143 Potassium 3.8 Chloride 108 H Carbon Dioxide 28 Anion Gap 10 BUN 12 Creatinine 0.7 L Est GFR ( Amer) > 60 Est GFR (Non-Af Amer) > 60 POC Glucose (mg/dL) Random Glucose 143 H Calcium 8.6 Phosphorus 2.9 Magnesium 2.0 Total Bilirubin 0.7 AST 50 ALT 75 H Alkaline Phosphatase 48 Total Creatine Kinase Total Protein 5.1 L Albumin 2.6 L Globulin 2.5 Albumin/Globulin Ratio 1.0 L 12/05/17 10:09 WBC RBC Hgb Hct MCV MCH MCHC RDW Plt Count MPV PT INR pCO2 pO2 HCO3 ABG pH ABG Total CO2 ABG O2 Saturation ABG O2 Content ABG Base Excess ABG Hemoglobin ABG Carboxyhemoglobin POC ABG HHb (Measured) ABG Methemoglobin ABG O2 Capacity Hgb O2 Saturation FiO2 Sodium Potassium Chloride Carbon Dioxide Anion Gap BUN Creatinine Est GFR ( Amer) Est GFR (Non-Af Amer) POC Glucose (mg/dL) 125 H Random Glucose Calcium Phosphorus Magnesium Total Bilirubin AST ALT Alkaline Phosphatase Total Creatine Kinase Total Protein Albumin Globulin Albumin/Globulin Ratio Attending/Attestation - Attestation I have personally seen and examined this patient.: Yes I have fully participated in the care of the patient.: Yes I have reviewed all pertinent clinical information: Yes Notes (Text): 12/05/17 12:24 62 yo male with VDRF secondary to pneumonia. will change abx to zyvox and meropenem and add inhaled tobramycin-->discussed with Dr. Alvarenga who agreed. HOB>35 , oral hygiene and VAP bundle, protective lung vent strategy, if CPK trending down, will hold IVF. and continue with conservative fluid management ccm time 40 min
--- NOTE | 2017-12-04 08:37 | CON ---
EAR, NOSE AND THROAT CONSULTATION DATE: 12/03/2017 CONSULTING PHYSICIAN: Dr. Johnnie Hicks. REFERRING PHYSICIAN: Dr. Kong. REASON FOR CONSULTATION: Tracheostomy evaluation. HISTORY OF PRESENT ILLNESS: This is a 62-year-old male with past history of bipolar disorder, alcohol abuse. He was admitted to [facility] (Former[facility]) approximately 12 days ago for alcohol intoxication and withdrawal. During an acute episode of agitation and alcohol withdrawal, he became altered and hypoxic and required intubation. He has since been intubated for about 10 days. Trails of extubation failed due to inability to come off of the sedation due to agitation. Ear, Nose, and Throat Service has been now consulted for a tracheostomy placement due to inability to wean off the ventilator. Upon evaluation, the patient is sedated and intubated. Majority of the history was obtained from his chart. There was no family or friends at the bedside. PAST MEDICAL HISTORY: As above. PAST SURGICAL HISTORY: Unable to obtain. MEDICATIONS: As per the Med Rec. ALLERGIES: NO KNOWN DRUG ALLERGIES. PHYSICAL EXAMINATION: VITAL SIGNS: Temperature is 101.3, pulse is 94, O2 sat 98% on the ventilator, blood pressure 129/69. GENERAL: He is intubated and sedated. HEENT: Head is atraumatic, normocephalic. Pupils are equal, round, reactive to light. External auricles are unremarkable. Nose is unremarkable. No discharge. No epistaxis. Mouth is normal. A size #[address] is in [address]. NECK: Soft, supple, tracheal landmarks are palpable. No masses, no lymphadenopathy. LUNGS: Respirations are mechanical. ASSESSMENT: This is a 62-year-old male with past medical history of bipolar disease and alcohol abuse, currently admitted to the ICU, intubated and sedated with ventilatory-dependent respiratory failure and inability to come off of the ventilator due to sedation, agitation likely from alcohol withdrawal. PLAN: Plan will be for a tracheostomy in the operating room. We will need to discuss who to get consent from as the patient does not have any present known family members who are visiting him. Prior to the tracheostomy, he will be n.p.o. holding the tube feeds and hold any form of anticoagulation. Thank you for this consult. Johnnie Hicks DO [facility] # [id number]
--- NOTE | 2017-12-04 08:44 | RAD ---
HISTORY: intubated COMPARISON: 12/03/2017. FINDINGS: The endotracheal tube terminates 2.5 cm proximal to the pipo. The nasogastric tube terminates in the stomach. LUNGS: There is interval development of consolidation in the right lower lobe. The left lung is clear. PLEURA: There is a small right pleural effusion, no pneumothorax apparent. CARDIOVASCULAR: Normal. OSSEOUS STRUCTURES: No significant abnormalities. VISUALIZED UPPER ABDOMEN: Normal. OTHER FINDINGS: None. IMPRESSION: Interval development of right lower lobe consolidation and small right pleural effusion. Stable position of endotracheal and nasogastric tubes.
[2017-12-04] MEDS ORDERED: Propofol 10 mg/ml 500 MG/50 ML VIAL IV PRN (09:10)
[2017-12-04] MEDS: Propofol 10 mg/ml 1,000 MG/100 ML VIAL ONE ×2 (09:24→11:07)
[2017-12-04] MEDS ORDERED: Propofol 10 mg/ml 1,000 MG/100 ML VIAL IV PRN (09:28)
--- NOTE | 2017-12-04 09:45 | EEG ---
DATE: TECHNICAL INFORMATION: Electrodes were placed according to the 10-20 International electrode system by surgical technologist. Total of 23 electrodes (21 EEG and 2 EKG) were placed. EEG activity was digitally recorded referentially to P1/P2 or A1/A2 electrodes. Continuous monitoring with EEG was performed using digital analysis for spike detection. The [employer] spike and seizure detection algorithms were used for digital EEG analysis throughout the monitoring period to screen the EEG in real-time and anum the data file with pointers to electrographic seizures and interictal discharges. EEG was screened for electrographic seizures and interictal discharges by a technologist. Physician, epileptologist reviewed detections as well as extensive random samples and whole EEG study in detail. DIGITAL EEG ANALYSIS: Was carried out including FFT (Fast Fourier Transform), R2D2 (Rhythmicity Run Detection and Display), Relative Asymmetry Spectrogram, and voltage plot by the [employer] Software. The qualitative EEG analysis and the voltage plot mapping were used for detection of foci of paroxysmal and abnormal electrical cortical activity. GENERAL DESCRIPTION: BACKGROUND RHYTHM: There is a well-formed, 8-10 Hz posterior dominant rhythm that is reactive, symmetric, and attenuates with eye opening. There was a normal amount of frontal beta noted bilaterally. There is no sleep recorded. ACTIVATION PROCEDURES: PHOTIC STIMULATION: There is no driving noted. HYPERVENTILATION: There is slowing noted that is self-remitted. ABNORMAL ACTIVITY: There are no focal epileptiform discharges noted. No clinical or subclinical seizures noted. IMPRESSION: This is a normal awake and drowsy electroencephalogram. Clinical correlation is required. Brittany Rosenberg MD
--- NOTE | 2017-12-04 09:58 | CARD ---
APPROVED REPORT EXAM: Two-dimensional and M-mode echocardiogram with Doppler and color Doppler. Other Information Quality : FairRhythm : INDICATION ALCOHOLIC CARDIOMYOPATHY 2D DIMENSIONS Left Atrium (2D)4.2 (1.6-4.0cm)IVSd1.1 (0.7-1.1cm) LVDd5.4 (3.9-5.9cm)PWd1.1 (0.7-1.1cm) LVDs4.0 (2.5-4.0cm)FS (%) 25.8 % LVEF (%)50.0 (>50%) M-Mode DIMENSIONS Aortic Root3.80 (2.2-3.7cm)Aortic Cusp Exc.1.80 (1.5-2.0cm) Aortic Valve AoV Peak Ngmcvjll019.0cm/Roderick Peak GR.12mmHg Mitral Valve MV E Rcjueict07.6cm/sMV A Xbdhkrrr59.3cm/sE/A ratio0.8 TDI Medial E' Peak V8.58cm/sE/Lateral E'0.0E/Medial E'8.1 Pulmonary Valve PV Peak Nvtbufvw60.1cm/sPV Peak Grad.2mmHg Tricuspid Valve TR Peak Nddbksek179gl/sRAP [id number] Peak Gr.28mmHg [id number] LEFT VENTRICLE The left ventricle is normal size. There is normal left ventricular wall thickness. Left ventricle systolic function is low normal. The Ejection Fraction is -50%. RIGHT VENTRICLE The right ventricle is normal size. ATRIA The left atrium is mildly dilated. The right atrium size is normal. The interatrial septum is intact with no evidence for an atrial septal defect. AORTIC VALVE The aortic valve is normal in structure. MITRAL VALVE The mitral valve is normal in structure. Mitral regurgitation is trace. TRICUSPID VALVE The tricuspid valve is normal in structure. There is trace tricuspid regurgitation. PULMONIC VALVE The pulmonic valve is not well visualized. GREAT VESSELS The aortic root is normal in size. PERICARDIAL EFFUSION There is no pericardial effusion. <Conclusion> The left ventricle is normal size. There is normal left ventricular wall thickness. Left ventricle systolic function is low normal. The Ejection Fraction is -50%.
[2017-12-04] MEDS ORDERED: Tobramycin 1.2 gm Inj IH SCH ×2 (10:00→11:02)
[2017-12-04] MEDS ORDERED: Ceftaroline 600 MG in Sodium Chloride 0.9% 100 ML IVPB SCH (10:00)
[2017-12-04] MEDS ORDERED: Gadodiamide 287 MG/ML VIAL (15ML) IV ONE (10:00)
--- NOTE | 2017-12-04 10:56 | MRI ---
PROCEDURE: MRI BRAIN WITH AND WITHOUT CONTRAST HISTORY: AMS COMPARISON: Unenhanced head CT 11/27/2017. TECHNIQUE: Multiplanar, multisequence MR images of the brain were obtained with and without intravenous contrast enhancement. FINDINGS: HEMORRHAGE: None DWI: No evidence of an acute or early subacute infarction. BRAIN PARENCHYMA: Diffuse cerebral atrophy and chronic microangiopathy are reiterated in the current examination. No mass-effect is identified in the interval and there is no suspicious extra-axial fluid collection appreciated. Midline brain anatomy remains grossly within normal limits. Motion artifacts limit the examination somewhat. ENHANCEMENT: No abnormal intracranial enhancement. VENTRICLES: Unremarkable. No hydrocephalus. CRANIUM: Unremarkable. ORBITS: Grossly unremarkable. PARANASAL SINUSES/MASTOIDS: Interval extensive bilateral maxillary, sphenoid ethmoid sinusitis changes are appreciated with minimal mucosal inflammatory changes and affecting the bilateral frontal sinuses. Bilateral mastoid effusions are also identified diffusely. VASCULAR SYSTEM: Skull base flow voids intact. OTHER FINDINGS: None . IMPRESSION: Age related neuro degenerative change are identified above the tentorium predominantly with the brainstem and posterior fossa contents unremarkable grossly. No abnormal intracranial enhancement. Stable brain imaging in the interval. Persistent right maxillary sinus disease and interval extensive left maxillary, bilateral ethmoid and sphenoid sinusitis. Trace bilateral frontal sinus disease. Extensive bilateral mastoid effusions are also identified.
[2017-12-04] MEDS: Fentanyl 1000mcg/100ml NS 1,000 MCG/100 ML BAG IV PRN ×2 (11:20→21:39)
[2017-12-04] MEDS ORDERED: Linezolid 600 mg in D5W 300 ml 600 MG/300 ML BAG IVPB SCH ×2 (11:30→22:00)
[2017-12-04] MEDS: Multivitamin With Minerals Tab PO SCH (12:00)
[2017-12-04] MEDS: Metoprolol 1 mg/ml Inj IVP SCH ×4 (12:01→20:30)
--- NOTE | 2017-12-04 13:43 | CP.PCM.PN ---
Subjective - Date & Time of Evaluation Date of Evaluation: 12/04/17 Time of Evaluation: 13:42 - Subjective Subjective: Mr. Koch was seen and examined at the bedside in ICU. He remains on mechanical ventilator with precedex and fentanyl for sedation.His pupils are reactive to light accommodation but sluggish, facial grimacing with response to tactile stimuli. He has bilateral wrist restraints for patient safety. Latest EEG showed seizure activity, patient is on AED medications.There was no untoward events overnight. Objective - Vital Signs/Intake and Output Vital Signs (last 24 hours): Temp Pulse Resp BP Pulse Ox 101.3 F H 101 H 43 H 122/62 98 12/04/17 07:00 12/04/17 12:01 12/04/17 03:55 12/04/17 12:01 12/04/17 07:00 Intake and Output: 12/04/17 12/04/17 06:59 18:59 Intake Total 290 2640 Output Total 350 Balance 290 2290 - Medications Medications: Current Medications Ascorbic Acid (Vitamin C 500 Mg Tab) 500 mg PO DAILY [facility] Last Admin: 12/04/17 12:01 Dose: 500 mg Bacitracin (Bacitracin) 1 ea TOP Q6 PRN PRN Reason: Swelling Last Admin: 11/28/17 09:34 Dose: 1 ea Folic Acid (Folic Acid) 1 mg PO DAILY [facility] Last Admin: 12/04/17 12:00 Dose: 1 mg Heparin Sodium (Porcine) (Heparin) 5,000 units SC Q8 SHIV PRN Reason: Protocol Last Admin: 12/04/17 07:40 Dose: 5,000 units Hydralazine HCl (Apresoline) 10 mg IVP Q6 PRN PRN Reason: give if SBP >160 Last Admin: 12/02/17 12:56 Dose: 10 mg Dexmedetomidine HCl (Precedex 4 Mcg/Ml (100 Ml)) 400 mcg in 100 mls @ 3.629 mls /hr IV .Q24H PRN; Protocol; 0.2 MCG/KG/HR PRN Reason: Agitation Last Admin: 12/04/17 05:45 Dose: 1 mcg/kg/hr, 18.144 mls/hr Fentanyl Citrate (Fentanyl Citrate/Sodium Chloride 1 Mg/100 Ml) 1,000 mcg in 100 mls @ 5 mls/hr IV .Q20H PRN; Protocol; 50 MCG/HR PRN Reason: TITRATE PER MD ORDER Last Admin: 12/04/17 11:20 Dose: 100 mcg/hr, 10 mls/hr Acetaminophen (Ofirmev) 1,000 mg in 100 mls @ 400 mls/hr IVPB Q6H PRN PRN Reason: fever Stop: 12/05/17 08:38 Last Admin: 12/04/17 11:59 Dose: 400 mls/hr Lactated Ringer's (Lactated Ringer's) 1,000 mls @ 150 mls/hr IV .Q6H40M SHIV Last Admin: 12/04/17 07:38 Dose: 150 mls/hr Propofol (Diprivan) 1,000 mg in 100 mls @ 2.3 mls/hr IV .Q24H PRN; Protocol; 5 MCG/KG/MIN PRN Reason: TITRATE PER MD ORDER Last Titration: 12/04/17 10:45 Dose: 0 mcg/kg/min, 0 mls/hr Meropenem/Sodium Chloride (Meropenem 1g/Ns 100ml Ivpb) 1 gm in 100 mls @ 100 mls/hr IVPB Q8 SHIV Stop: 12/04/17 22:59 Last Admin: 12/04/17 13:02 Dose: 100 mls/hr Linezolid (Zyvox 600mg/300ml D5w) 600 mg in 300 mls @ 200 mls/hr IVPB Q12 SHIV PRN Reason: Protocol Stop: 12/04/17 23:29 Insulin Human Lispro (Humalog Low) 0 units SC Q6H SHIV PRN Reason: Protocol Last Admin: 12/04/17 11:07 Dose: Not Given Levalbuterol HCl (Xopenex) 0.63 mg IH [id number] PRN PRN Reason: Shortness of Breath Last Admin: 12/03/17 13:48 Dose: 0.63 mg Levetiracetam (Keppra) 750 mg PO Q12 SHIV Lorazepam (Ativan) 4 mg IVP Q4H PRN PRN Reason: Agitation Last Admin: 12/04/17 13:01 Dose: 4 mg Metoprolol Tartrate (Lopressor) 5 mg IVP Q4 SHIV Last Admin: 12/04/17 12:01 Dose: 5 mg Multivitamins/Minerals (Therapeutic-M Tab) 1 tab PO 0800 [facility] Last Admin: 12/04/17 12:00 Dose: 1 tab Pantoprazole Sodium (Protonix Inj) 40 mg IVP DAILY [facility] Last Admin: 12/04/17 12:01 Dose: 40 mg Thiamine HCl (Vitamin B1 Tab) 100 mg PO TID [facility] Last Admin: 12/04/17 13:02 Dose: 100 mg Tobramycin Sulfate (Tobramycin Inj) 0.08 gm IH [id number] [facility] Zinc Sulfate (Zinc Sulfate 220 Mg Cap) 220 mg PO DAILY [facility] Last Admin: 12/04/17 12:01 Dose: 220 mg - Labs Labs: 12/04/17 05:30 12/04/17 05:30 PT 17.8 SECONDS (9.4-12.5) H 12/04/17 05:30 INR 1.53 (0.93-1.08) H 12/04/17 05:30 - Constitutional Appears: No Acute Distress - Head Exam Head Exam: NORMAL INSPECTION - Neurological Exam Neuro motor strength exam: Left Upper Extremity: 2/1, Right Upper Extremity: 2/1 , Left Lower Extremity: 2/1, Right Lower Extremity: 2/1 Additional comments: Neurological unchanged from previous examination. Assessment and Plan (1) Altered mental status, unspecified Assessment & Plan: Case discussed with Dr. Ingram, continue all current medical regimen including AED. Recommend repeating EEG to evaluate seizure activity. Status: Acute
[2017-12-04] MEDS ORDERED: Meropenem 1,000 MG in Sodium Chloride 0.9% 100 ML IVPB SCH (14:00)
[2017-12-04] MEDS ORDERED: Meropenem 1g/100 mL NS IVPB IVPB SCH (14:00)
--- NOTE | 2017-12-04 14:22 | CP.PCM.PN ---
<Sarkis Fuentes - Last Filed: 12/04/17 19:09> Subjective - Date & Time of Evaluation Date of Evaluation: 12/04/17 Time of Evaluation: 09:10 - Subjective Subjective: Medicine progress note for Dr. Samantha Tabor Hospitalist Service: Patient seen and examined. Patient remains intubated and sedated. Patient is still tremulous despite sedation as he is only on Fentanyl and Precedex drip this morning. Patient had fever overnight with Tmax of 102 degrees. ROS is unable to be obtained. Objective - Vital Signs/Intake and Output Vital Signs (last 24 hours): Temp Pulse Resp BP Pulse Ox 101.3 F H 101 H 43 H 122/62 98 12/04/17 07:00 12/04/17 12:01 12/04/17 03:55 12/04/17 12:01 12/04/17 07:00 Intake and Output: 12/04/17 12/04/17 06:59 18:59 Intake Total 290 2640 Output Total 350 Balance 290 2290 - Medications Medications: Current Medications Ascorbic Acid (Vitamin C 500 Mg Tab) 500 mg PO DAILY [facility] Last Admin: 12/04/17 12:01 Dose: 500 mg Bacitracin (Bacitracin) 1 ea TOP Q6 PRN PRN Reason: Swelling Last Admin: 11/28/17 09:34 Dose: 1 ea Folic Acid (Folic Acid) 1 mg PO DAILY [facility] Last Admin: 12/04/17 12:00 Dose: 1 mg Heparin Sodium (Porcine) (Heparin) 5,000 units SC Q8 SHIV PRN Reason: Protocol Last Admin: 12/04/17 07:40 Dose: 5,000 units Hydralazine HCl (Apresoline) 10 mg IVP Q6 PRN PRN Reason: give if SBP >160 Last Admin: 12/02/17 12:56 Dose: 10 mg Dexmedetomidine HCl (Precedex 4 Mcg/Ml (100 Ml)) 400 mcg in 100 mls @ 3.629 mls /hr IV .Q24H PRN; Protocol; 0.2 MCG/KG/HR PRN Reason: Agitation Last Admin: 12/04/17 05:45 Dose: 1 mcg/kg/hr, 18.144 mls/hr Fentanyl Citrate (Fentanyl Citrate/Sodium Chloride 1 Mg/100 Ml) 1,000 mcg in 100 mls @ 5 mls/hr IV .Q20H PRN; Protocol; 50 MCG/HR PRN Reason: TITRATE PER MD ORDER Last Admin: 12/04/17 11:20 Dose: 100 mcg/hr, 10 mls/hr Acetaminophen (Ofirmev) 1,000 mg in 100 mls @ 400 mls/hr IVPB Q6H PRN PRN Reason: fever Stop: 12/05/17 08:38 Last Admin: 12/04/17 11:59 Dose: 400 mls/hr Lactated Ringer's (Lactated Ringer's) 1,000 mls @ 150 mls/hr IV .Q6H40M SHIV Last Admin: 12/04/17 07:38 Dose: 150 mls/hr Propofol (Diprivan) 1,000 mg in 100 mls @ 2.3 mls/hr IV .Q24H PRN; Protocol; 5 MCG/KG/MIN PRN Reason: TITRATE PER MD ORDER Last Titration: 12/04/17 10:45 Dose: 0 mcg/kg/min, 0 mls/hr Meropenem/Sodium Chloride (Meropenem 1g/Ns 100ml Ivpb) 1 gm in 100 mls @ 100 mls/hr IVPB Q8 SHIV Stop: 12/04/17 22:59 Last Admin: 12/04/17 13:02 Dose: 100 mls/hr Linezolid (Zyvox 600mg/300ml D5w) 600 mg in 300 mls @ 200 mls/hr IVPB Q12 SHIV PRN Reason: Protocol Stop: 12/04/17 23:29 Insulin Human Lispro (Humalog Low) 0 units SC Q6H SHIV PRN Reason: Protocol Last Admin: 12/04/17 11:07 Dose: Not Given Levalbuterol HCl (Xopenex) 0.63 mg IH [id number] PRN PRN Reason: Shortness of Breath Last Admin: 12/03/17 13:48 Dose: 0.63 mg Levetiracetam (Keppra) 750 mg PO Q12 [facility] Lorazepam (Ativan) 4 mg IVP Q4H PRN PRN Reason: Agitation Last Admin: 12/04/17 13:01 Dose: 4 mg Metoprolol Tartrate (Lopressor) 5 mg IVP Q4 SHIV Last Admin: 12/04/17 12:01 Dose: 5 mg Multivitamins/Minerals (Therapeutic-M Tab) 1 tab PO 0800 [facility] Last Admin: 12/04/17 12:00 Dose: 1 tab Pantoprazole Sodium (Protonix Inj) 40 mg IVP DAILY [facility] Last Admin: 12/04/17 12:01 Dose: 40 mg Thiamine HCl (Vitamin B1 Tab) 100 mg PO TID [facility] Last Admin: 12/04/17 13:02 Dose: 100 mg Tobramycin Sulfate (Tobramycin Inj) 0.08 gm IH [id number] [facility] Zinc Sulfate (Zinc Sulfate 220 Mg Cap) 220 mg PO DAILY [facility] Last Admin: 12/04/17 12:01 Dose: 220 mg - Labs Labs: 12/04/17 05:30 12/04/17 05:30 PT 17.8 SECONDS (9.4-12.5) H 12/04/17 05:30 INR 1.53 (0.93-1.08) H 12/04/17 05:30 - Constitutional Appears: Chronically Ill - Head Exam Head Exam: ATRAUMATIC, NORMOCEPHALIC - Eye Exam Eye Exam: Normal appearance - ENT Exam ENT Exam: Mucous Membranes Moist Additional comments: OGT and endotracheal tube in place - Respiratory Exam Respiratory Exam: Decreased Breath Sounds, Rhonchi. absent: Rales, Wheezes - Cardiovascular Exam Cardiovascular Exam: Tachycardia, +S1, +S2 - GI/Abdominal Exam GI & Abdominal Exam: Soft. absent: Distended, Tenderness - Extremities Exam Extremities Exam: absent: Pedal Edema - Neurological Exam Neurological Exam: Altered - Skin Skin Exam: Intact, Warm Assessment and Plan - Assessment and Plan (Free Text) Assessment: 62 year old male with PMHx of Bipolar disorder and ETOH abuse in ICU for DTs. Patient initially admitted to psych for suicidal ideation then transferred to in -patient due to severe ETOH withdrawal with DTs requiring high-dose sedation and intubation. Subclinical seizure noted on EEG performed on 11/30/17. Fevers likely due to DTs versus developing RLL consolidation seen on CXR. 1. ETOH withdrawal with Delirium Tremens - Intubated and sedated currently on Fentanyl, Precedex, and Propofol drips. - Neuro consulted- recs appreciated - Continue CIWA protocol, seizure precaution, aspiration precaution - Ativan 4 mg IV prn agitation - Head CT negative for acute pathology - EEG with subclinical seizure seen - IV Keppra on board for seizures - MRI brain showed persistent bilateral maxially, ethomoid and sphoenoid sinusitis with mastoid effusions 2. Altered Mental Status, currently being sedated for DT's - CT head was unremarkable - thiamine increased to protect against encephalopathy - neuro consulted, Dr. Rosenberg, appreciate recs 3. Right lower lobe consolidations - Seen on CXR - Possible pneumonia versus atelectasis - Empirically treated with Merrem, Zyvox, and Tobramycin 3. Blisters on hands (not affecting IV lines) - Multivitamin, vit C and Zinc added - Bacitracin ointment to be applied 4. Rhabdomyolysis - likely secondary to DT's - renal function has not been affected - Continue hydration - CPK markedly elevated - will monitor 5. Fever of unknown origin - Possibly secondary to ETOH withdrawals - ID consult, appreciate recs - Febrile overnight - Follow up septic workup - negative Lower Extremity ultrasound - no vegetations seen on echo 6. Electrolyte imbalance - monitor and replete as needed - Rhabdomyolysis 7. Prophylaxis - SCDs - Aspiration precautions - Seizure precautions - Heparin SC - Protonix Disposition: Remains intubated for now. MRI shows sinusitis, so inhaled Tobramycin was started. Developing RLL consolidation seen. Possible pneumonia versus atelectasis. Treating empirically for pneumonia. Consider lumbar puncture if no further improvement seen. Continue to attempt weaning off of ventilation support. Discussed and seen with hospitalist Dr. Samantha Tabor <Samantha Tabor - Last Filed: 12/05/17 14:26> Objective - Vital Signs/Intake and Output Vital Signs (last 24 hours): Temp Pulse Resp BP Pulse Ox 99.7 F H 82 22 159/83 H 100 12/05/17 13:00 12/05/17 13:00 12/05/17 13:33 12/05/17 13:00 12/05/17 13:33 Intake and Output: 12/05/17 12/05/17 06:59 18:59 Intake Total 3326 2348 Output Total 283 700 Balance 2776 1648 - Medications Medications: Current Medications Acetaminophen (Tylenol 650 Mg Supp) 650 mg RC Q6H PRN PRN Reason: Fever >100.4 F Ascorbic Acid (Vitamin C 500 Mg Tab) 500 mg PO DAILY [facility] Last Admin: 12/05/17 09:25 Dose: 500 mg Bacitracin (Bacitracin) 1 ea TOP Q6 PRN PRN Reason: Swelling Last Admin: 11/28/17 09:34 Dose: 1 ea Cyproheptadine HCl (Periactin) 4 mg PO Q8H [facility] Last Admin: 12/05/17 11:45 Dose: 4 mg Docusate Sodium (Colace Liquid) 100 mg PO BID [facility] Folic Acid (Folic Acid) 1 mg PO DAILY [facility] Last Admin: 12/05/17 09:25 Dose: 1 mg Heparin Sodium (Porcine) (Heparin) 5,000 units SC Q8 SHIV PRN Reason: Protocol Last Admin: 12/05/17 13:10 Dose: 5,000 units Hydralazine HCl (Apresoline) 10 mg IVP Q6 PRN PRN Reason: give if SBP >160 Last Admin: 12/02/17 12:56 Dose: 10 mg Dexmedetomidine HCl (Precedex 4 Mcg/Ml (100 Ml)) 400 mcg in 100 mls @ 3.629 mls /hr IV .Q24H PRN; Protocol; 0.2 MCG/KG/HR PRN Reason: Agitation Last Admin: 12/05/17 07:59 Dose: 1 mcg/kg/hr, 18.144 mls/hr Lactated Ringer's (Lactated Ringer's) 1,000 mls @ 150 mls/hr IV .Q6H40M [facility] Last Admin: 12/05/17 09:53 Dose: 150 mls/hr Meropenem 500 mg/ Sodium (Chloride) 100 mls @ 100 mls/hr IVPB Q8 SHIV PRN Reason: Protocol Last Admin: 12/05/17 13:07 Dose: 100 mls/hr Linezolid (Zyvox 600mg/300ml D5w) 600 mg in 300 mls @ 200 mls/hr IVPB Q12 SHIV PRN Reason: Protocol Last Admin: 12/05/17 09:24 Dose: 200 mls/hr Insulin Human Lispro (Humalog Low) 0 units SC Q6H SHIV PRN Reason: Protocol Last Admin: 12/05/17 10:10 Dose: Not Given Levalbuterol HCl (Xopenex) 0.63 mg IH [id number] PRN PRN Reason: Shortness of Breath Last Admin: 12/05/17 13:29 Dose: 0.63 mg Levetiracetam (Keppra) 750 mg PO Q12 [facility] Last Admin: 12/05/17 09:24 Dose: 750 mg Lorazepam (Ativan) 4 mg IVP Q4H PRN PRN Reason: Agitation Last Admin: 12/05/17 13:01 Dose: 4 mg Multivitamins/Minerals (Therapeutic-M Tab) 1 tab PO 0800 [facility] Last Admin: 12/05/17 09:25 Dose: 1 tab Pantoprazole Sodium (Protonix Inj) 40 mg IVP DAILY [facility] Last Admin: 12/05/17 09:26 Dose: 40 mg Polyethylene Glycol (Miralax) 17 gm PO BID [facility] Propranolol HCl (Inderal) 40 mg PO BID [facility] Last Admin: 12/05/17 11:28 Dose: 40 mg Thiamine HCl (Vitamin B1 Tab) 100 mg PO TID [facility] Last Admin: 12/05/17 13:10 Dose: 100 mg Tobramycin Sulfate (Tobramycin Inj) 0.08 gm IH [id number] [facility] Last Admin: 12/05/17 11:44 Dose: 0.08 gm Zinc Sulfate (Zinc Sulfate 220 Mg Cap) 220 mg PO DAILY [facility] Last Admin: 12/05/17 09:25 Dose: 220 mg - Labs Labs: 12/05/17 06:45 12/05/17 06:45 PT 18.5 SECONDS (9.4-12.5) H 12/05/17 06:45 INR 1.59 (0.93-1.08) H 12/05/17 06:45 Attending/Attestation - Attestation I have personally seen and examined this patient.: Yes I have fully participated in the care of the patient.: Yes I have reviewed all pertinent clinical information, including history, physical exam and plan: Yes Notes (Text): I have seen and examined the patient at bedside. Agree with the above note with the following additions/ exceptions: Briefly this is 62 year old male with history of bipolar disorder and chronic alcohol abuse who was admitted for alcohol withdrawal and is now manifesting severe alcohol withdrawal and delerium Tremens. He is diaphoretic, agitated, restless, tachycardic, hypertensive when off of sedation. Patient remains on fentanyl drip ,precedex and propofol was started. He has been having fever which can be due to DT's vs pneumonia. Alternate diagnosis need to be ruled out.. LE duplex negative for DVT. MRI brain showed sinusitis.Cultures and procal negative. Patient was started on Meropenem, zyvox and tobramycin. UDS negative. Echo did not reveal any vegetation. CK elevated. Continue IVF. Patient is intubated and sedated. Weaning trial per ICU team. CT head was negative. Will continue Ativan. EEG revealed subclinical seizure on keppra. He has transaminitis due to alcohol abuse. Upon discharge [place] [facility] [place] Samantha Tabor
--- NOTE | 2017-12-04 18:49 | CP.PCM.PN ---
Subjective - Date & Time of Evaluation Date of Evaluation: 12/04/17 Time of Evaluation: 18:15 - Subjective Subjective: Infectious Disease Follow Up: December 04, 2017 62 yo male with medical history that includes Bipolar disorder and alcohol abuse presented with EtOH intoxication and now in withdrawals. Originally in the psych floor for bipolar disease treatment and suicidal ideation on 11/21/2017. The patient required intubation. ID called for possible aspiration pneumonia. No fevers, leukocytosis at this time. Remains intubated. Still no fevers or leukocytosis. Remains sedated. Noted blistered skin on right hand that slightly improved. Persistent fevers up to 102.0 F. Still no leukocytosis. Cultures from 2017 negative. New cultures sent 12/01-. Multiple blisters on the right hand. Fluid filler and dark in color. Patient highly agitated on attempts to wean sedation. Would obtain fluid from blisters for culture. Would consider CT of chest/ abdomen/pelvis. May consider use of meropenem for antibiotic coverage at this point. No new issues. Difficult extubation. Patient severely agitated when taken off sedation. Objective - Vital Signs/Intake and Output Vital Signs (last 24 hours): Temp Pulse Resp BP Pulse Ox 101.3 F H 101 H 43 H 122/62 98 12/04/17 07:00 12/04/17 12:01 12/04/17 03:55 12/04/17 12:01 12/04/17 07:00 Intake and Output: 12/04/17 12/04/17 06:59 18:59 Intake Total 290 2822 Output Total 350 Balance 290 2472 - Medications Medications: Current Medications Ascorbic Acid (Vitamin C 500 Mg Tab) 500 mg PO DAILY [facility] Last Admin: 12/04/17 12:01 Dose: 500 mg Bacitracin (Bacitracin) 1 ea TOP Q6 PRN PRN Reason: Swelling Last Admin: 11/28/17 09:34 Dose: 1 ea Folic Acid (Folic Acid) 1 mg PO DAILY [facility] Last Admin: 12/04/17 12:00 Dose: 1 mg Heparin Sodium (Porcine) (Heparin) 5,000 units SC Q8 SHIV PRN Reason: Protocol Last Admin: 12/04/17 18:07 Dose: 5,000 units Hydralazine HCl (Apresoline) 10 mg IVP Q6 PRN PRN Reason: give if SBP >160 Last Admin: 12/02/17 12:56 Dose: 10 mg Dexmedetomidine HCl (Precedex 4 Mcg/Ml (100 Ml)) 400 mcg in 100 mls @ 3.629 mls /hr IV .Q24H PRN; Protocol; 0.2 MCG/KG/HR PRN Reason: Agitation Last Admin: 12/04/17 14:47 Dose: 1 mcg/kg/hr, 18.144 mls/hr Fentanyl Citrate (Fentanyl Citrate/Sodium Chloride 1 Mg/100 Ml) 1,000 mcg in 100 mls @ 5 mls/hr IV .Q20H PRN; Protocol; 50 MCG/HR PRN Reason: TITRATE PER MD ORDER Last Titration: 12/04/17 18:14 Dose: 50 mcg/hr, 5 mls/hr Acetaminophen (Ofirmev) 1,000 mg in 100 mls @ 400 mls/hr IVPB Q6H PRN PRN Reason: fever Stop: 12/05/17 08:38 Last Admin: 12/04/17 11:59 Dose: 400 mls/hr Lactated Ringer's (Lactated Ringer's) 1,000 mls @ 150 mls/hr IV .Q6H40M SHIV Last Admin: 12/04/17 14:45 Dose: 150 mls/hr Propofol (Diprivan) 1,000 mg in 100 mls @ 2.3 mls/hr IV .Q24H PRN; Protocol; 5 MCG/KG/MIN PRN Reason: TITRATE PER MD ORDER Last Titration: 12/04/17 10:45 Dose: 0 mcg/kg/min, 0 mls/hr Meropenem/Sodium Chloride (Meropenem 1g/Ns 100ml Ivpb) 1 gm in 100 mls @ 100 mls/hr IVPB Q8 SHIV Stop: 12/04/17 22:59 Last Admin: 12/04/17 13:02 Dose: 100 mls/hr Linezolid (Zyvox 600mg/300ml D5w) 600 mg in 300 mls @ 200 mls/hr IVPB Q12 [facility]IV PRN Reason: Protocol Stop: 12/04/17 23:29 Meropenem 500 mg/ Sodium (Chloride) 50 mls @ 100 mls/hr IVPB Q8 SHIV PRN Reason: Protocol Linezolid (Zyvox 600mg/300ml D5w) 600 mg in 300 mls @ 200 mls/hr IVPB Q12 SHIV PRN Reason: Protocol Insulin Human Lispro (Humalog Low) 0 units SC Q6H [facility]IV PRN Reason: Protocol Last Admin: 12/04/17 17:48 Dose: Not Given Levalbuterol HCl (Xopenex) 0.63 mg IH [id number] PRN PRN Reason: Shortness of Breath Last Admin: 12/03/17 13:48 Dose: 0.63 mg Levetiracetam (Keppra) 750 mg PO Q12 [facility] Lorazepam (Ativan) 4 mg IVP Q4H PRN PRN Reason: Agitation Last Admin: 12/04/17 18:05 Dose: 4 mg Metoprolol Tartrate (Lopressor) 5 mg IVP Q4 [facility] Last Admin: 12/04/17 12:01 Dose: 5 mg Multivitamins/Minerals (Therapeutic-M Tab) 1 tab PO 0800 [facility] Last Admin: 12/04/17 12:00 Dose: 1 tab Pantoprazole Sodium (Protonix Inj) 40 mg IVP DAILY [facility] Last Admin: 12/04/17 12:01 Dose: 40 mg Thiamine HCl (Vitamin B1 Tab) 100 mg PO TID [facility] Last Admin: 12/04/17 18:05 Dose: 100 mg Tobramycin Sulfate (Tobramycin Inj) 0.08 gm IH [id number] [facility] Zinc Sulfate (Zinc Sulfate 220 Mg Cap) 220 mg PO DAILY [facility] Last Admin: 12/04/17 12:01 Dose: 220 mg - Labs Labs: 12/04/17 05:30 12/04/17 05:30 PT 17.8 SECONDS (9.4-12.5) H 12/04/17 05:30 INR 1.53 (0.93-1.08) H 12/04/17 05:30 - Constitutional Appears: Toxic, Older Than Stated Age, Chronically Ill - Head Exam Additional comments: intubated and ventilated. - Eye Exam Eye Exam: EOMI, PERRL Pupil Exam: NORMAL ACCOMODATION, PERRL - ENT Exam ENT Exam: Mucous Membranes Moist, Normal External Ear Exam, TM's Normal Bilaterally - Neck Exam Neck Exam: Full ROM - Respiratory Exam Respiratory Exam: Clear to Ausculation Bilateral, NORMAL BREATHING PATTERN. absent: Rales, Rhonchi, Wheezes - Cardiovascular Exam Cardiovascular Exam: REGULAR RHYTHM, RRR, +S1, +S2 - GI/Abdominal Exam GI & Abdominal Exam: Soft, Normal Bowel Sounds. absent: Distended, Tenderness - Extremities Exam Extremities Exam: Full ROM, Normal Inspection - Neurological Exam Neurological Exam: Altered Additional comments: intubated, ventilated. - Skin Skin Exam: Intact, Normal Color Assessment and Plan - Assessment and Plan (Free Text) Assessment: 62 yo male with EtOH abuse. Developed EtOH withdrawal and now required intubation and ventilation. The patient was being evaluated by ID for potential aspiration. The patient is currently on Cefepime and Vancomycin. If aspiration is a significant concern, would either add Flagyl IV or switch Cefepime to Meropenem or Zosyn. Febrile several days ago up to 102 F. Afebrile the last few days. No leukocytosis. No findings on Chest X-ray. Supportive care. Procalcitonin is 0.14 which is low. Noted procalcitonin repeated. More likely secondary to the EtOH withdrawal and Delirium Tremens. Case discussed with team. Off antibiotics now. Will Monitor. Difficult extubation/wean from ventilation. Agitation when off sedation. Fever up to 102.0 F today. Repeat cultures with next fever. Check urinalysis and urine culture. 11/30/2017 cultures negative so far. 12/01/2017 cultures pending. Fever uptrending. Fevers now persistent. Supportive care. Chest X-ray suggesting HCAP. Antibiotics switched to Zyvox and Meropenem. Thank you for allowing me to participate in the care of the patient, we will follow with you.
[2017-12-04] MEDS: Meropenem 500 MG in Sodium Chloride 0.9% 100 ML IVPB SCH (21:51)
[2017-12-04] MEDS ORDERED: Meropenem 1g/NS 100mL IVPB 1 GM/100 ML PIGGYBACK IVPB SCH (22:00)
[2017-12-04] MEDS: Linezolid 600 mg in D5W 300 ml 600 MG/300 ML BAG IVPB SCH (22:05)
[2017-12-05] MEDS: Levalbuterol 0.63 MG/3 ML Inhal Soln UD IH PRN ×2 (00:35→13:29)
[2017-12-05] MEDS ORDERED: HYDROmorphone 1 mg/ml ISec IM STA (01:58)
[2017-12-05] MEDS: Insulin Lispro (humaLOG) LOW Coverage SC SCH ×4 (03:05→20:59)
--- NOTE | 2017-12-05 03:05 | PCM.PROC ---
<Pop Cooper - Last Filed: 12/05/17 03:04> Procedures Attestation:: I certify that I have explained the specified Operation(s) or Procedure(s), risks, benefits and reasonable alternatives to the Patient and/or other person responsible. The opportunity was given to ask questions and all questions answered - Central Line Placement Left Internal Jugular Triple Lumen Catheter Aseptic technique was employed throughout the procedure: Hand Hygiene done prior to procedure, Full sterile barriers (mask, hair cover, sterile gown, sterile gloves), Full body sterile drape, Chloraprep Antiseptic: 30 second prep for IJ or SC sites CVP Time Out Performed: Yes Pt. Placed on Pulse Ox Monitor: Yes Central Line Prep: Chlorhexidine-Alcohol Combination Local Anesthesia Used: Lidocaine 1% Amount of Anesthesia Used (mls): 4 Ultrasound Used for Placement: Yes Central Line Lumen Inserted: triple Central Line Length: 20 cm Post Procedure: Sutured in Place, Good Blood Return, All Ports Aspirated, Flushed, Capped, Sterile Dressing Applied Secured by: Suture (and securement device) Post procedure dressing: Clear vapor permeable, Chlorhexidine disc (Biopatch) Post Procedure X-Ray: Yes Patient Tolerated Procedure: Well Immediate Complications: None <Jaime Osuna MD - Last Filed: 12/05/17 07:26> Attending/Attestation - Attestation I have personally seen and examined this patient.: Yes I have fully participated in the care of the patient.: Yes I have reviewed all pertinent clinical information, including history, physical exam and plan: Yes Notes (Text): -Patient's only peripheral IV line became blown overnight and multiple attempts at placement of new PIV were unsuccessful (as patient is an extremely hard stick ). As a result, numerous scheduled and PRN IV meds were delayed causing patient to become hypertensive, diaphoretic and tachycardic. As a result, urgent central venous line (Left IJ) was placed in order to ensure patient received all his IV meds. Double M.D. signatures were used since patient's family is unreachable. The line was placed by Dr. Cooper without any complications.
[2017-12-05] MEDS: Metoprolol 1 mg/ml Inj IVP SCH ×2 (04:01)
[2017-12-05] MEDS: Dexmedetomidine 400mcg/100mL 400 MCG/100 ML BOTTLE IV PRN ×4 (04:02→20:02)
[2017-12-05] MEDS: Meropenem 500 MG in Sodium Chloride 0.9% 100 ML IVPB SCH ×3 (06:08→21:36)
[2017-12-05 06:46] LABS: ARTERIAL BLOOD GAS HCO3 26.6 mmol/L (21-28); ARTERIAL BLOOD GAS HEMOGLOBIN 9.5 g/dL (11.7-17.4); ARTERIAL BLOOD GAS O2 CAPACITY 13.4 mL/dl (16-24); ARTERIAL BLOOD GAS O2 CONTENT 13.4 ML/dl (15-23); ARTERIAL BLOOD GAS O2 SAT 100.1 % (95-98); ARTERIAL BLOOD GAS PCO2 42 mm/Hg (35-45); ARTERIAL BLOOD GAS PH 7.41 (7.35-7.45); ARTERIAL BLOOD GAS TCO2 27.9 mmol.L (22-28)
[2017-12-05 07:07] LABS: MEAN CELL VOLUME 91.6 fl (80.0-105.0); MEAN CORPUSCULAR HGB CONC 32.8 g/dl (31.0-37.0); MEAN PLATELET VOLUME 10.8 fl (7.0-11.0); RBC 3.33 10^6/uL (3.5-6.1); RED CELL DISTRIBUTION WIDTH 13.7 % (11.5-14.5); WHITE BLOOD COUNT 10.1 10^3/ul (4.5-11.0)
[2017-12-05 07:18] LABS: PROTHROMBIN TIME 18.5 SECONDS (9.4-12.5)
[2017-12-05 07:19] LABS: INR 1.59 (0.93-1.08)
[2017-12-05 07:54] LABS: ALBUMIN 2.6 g/dL (3.0-4.8); ALT/SGPT 75 U/L (7-56); AST/SGOT 50 U/L (17-59); BLOOD UREA NITROGEN 12 mg/dL (7-21); CALCIUM 8.6 mg/dL (8.4-10.5); GFR AFRICAN-AMERICAN > 60; GFR NON-AFRICAN AMERICAN > 60
--- NOTE | 2017-12-05 09:00 | RAD ---
HISTORY: tlc COMPARISON: 12/04/2017 FINDINGS: The endotracheal tube terminates 1.5 cm proximal to the pipo. The nasogastric tube terminates in the. The left IJV line terminates in the SVC. LUNGS: There is worsening consolidation in the right lower lobe. The left lung is clear. PLEURA: There is a small right pleural effusion. No left pleural effusion. No pneumothorax. CARDIOVASCULAR: Normal. OSSEOUS STRUCTURES: No significant abnormalities. VISUALIZED UPPER ABDOMEN: Normal. OTHER FINDINGS: None. IMPRESSION: 1. Left IJV line terminates in the SVC. No pneumothorax. 2. Worsening right lower lobe pneumonia and small pleural effusion. Follow-up to resolution is advised.
[2017-12-05] MEDS: levETIRAcetam 500 mg/5ml UD cups PO SCH ×2 (09:24→21:35)
[2017-12-05] MEDS: Linezolid 600 mg in D5W 300 ml 600 MG/300 ML BAG IVPB SCH (09:24)
[2017-12-05] MEDS: Multivitamin With Minerals Tab PO SCH (09:25)
--- NOTE | 2017-12-05 09:28 | CP.CCUPN ---
<Singh Traore - Last Filed: 12/05/17 13:55> CCU Subjective - Physician Review Subjective (Free Text): Singh Traore PGY1 ICU Note for Dr. Velez Patient was seen and examined in ICU. Overnight, the patient was restless and it was noted that his peripheral lines were infiltrated. TLC was placed and sedation started back up. Patient noted to be less restless overall but does have a resting tremor of right arm. Patient remains on vent and mackenzie catheter in place. Low grade fevers noted and attributed to DT's and ETOH withdrawal by ID. ROS could not be obtained. CCU Objective - Vital Signs / Intake & Output Vital Signs (Last 4 hours): Vital Signs Temp Pulse BP Pulse Ox 12/05/17 07:00 100.2 F H 75 97/51 L 100 12/05/17 06:00 100.4 F H 71 100/49 L 100 Intake and Output (Last 8hrs): Intake & Output 12/04/17 12/05/17 12/05/17 22:59 06:59 14:59 Intake Total 3308 100 2348 Output Total 550 700 Balance 2758 100 1648 Intake: IV 2948 100 1948 Fentanyl 228 Right Antecubital 1500 Right Forearm 2748 precedex 120 Oral 400 Tube Feeding 360 Output: Urine 550 700 Urethral (Mackenzie) 550 700 Other: # Bowel Movements 0 - Physical Exam Physical Exam Limitations: Positive for: Altered Mental Status Head: Positive for: Atraumatic, Normocephalic Pupils: Positive for: PERRL, Sluggish Conjunctiva: Positive for: Normal. Negative for: Injected Ears: Positive for: Normal Mouth: Positive for: Normal Teeth, Other (dry oral mucosa, ET/OG tube in place) Pharnyx: Positive for: Normal Nose (External): Positive for: Atraumatic Nose (Internal): Positive for: Normal Inspection Neck: Negative for: JVD Respiratory/Chest: Positive for: Clear to Auscultation, Good Air Exchange, Other (intubated on vent). Negative for: Respiratory Distress, Accessory Muscle Use, Wheezes, Rales, Retracting, Rhonchi, Tachypneic Cardiovascular: Positive for: Normal S1, S2, Tachycardic. Negative for: Murmurs Abdomen: Positive for: Normal Bowel Sounds. Negative for: Tenderness, Distention, Peritoneal Signs, Rebound, Guarding Genitourinary Male: Positive for: Other (mackenzie catheter in place ) Back: Positive for: Normal Inspection. Negative for: Midline Tenderness Upper Extremity: Positive for: Normal Inspection, NORMAL PULSES, Other (resting right arm tremor, rigidity noted). Negative for: Cyanosis, Edema Lower Extremity: Positive for: Normal Inspection, NORMAL PULSES. Negative for: Edema Neurological: Positive for: Other (sedated ). Negative for: GCS=15 Skin: Positive for: Warm, Normal Color, Diaphoretic Psychiatric: Positive for: Other (sedated). Negative for: Alert, Oriented x 3, Normal Insight, Normal Concentration - Medications Active Medications: Active Medications Generic Name Dose Route Start Last Admin Trade Name Freq PRN Reason Stop Dose Admin Ascorbic Acid 500 mg 11/28/17 11:30 12/04/17 12:01 Vitamin C 500 Mg Tab PO 500 mg DAILY [facility] Administration Bacitracin 1 ea 11/28/17 08:51 11/28/17 09:34 Bacitracin TOP 1 ea Q6 PRN Administration Swelling Folic Acid 1 mg 12/01/17 10:15 12/04/17 12:00 Folic Acid PO 1 mg DAILY [facility] Administration Heparin Sodium (Porcine) 5,000 units 12/03/17 08:15 12/05/17 06:07 Heparin SC 5,000 units Q8 [facility] Administration Protocol Hydralazine HCl 10 mg 11/29/17 14:56 12/02/17 12:56 Apresoline IVP 10 mg Q6 PRN Administration give if SBP >160 Dexmedetomidine HCl 400 mcg in 100 mls @ 3.629 mls/hr 11/26/17 09:21 07:59 Precedex 4 Mcg/Ml (100 Ml) IV 1 mcg/kg/hr .Q24H PRN 18.144 mls/hr Agitation Administration Protocol 0.2 MCG/KG/HR Lactated Ringer's 1,000 mls @ 150 mls/hr 12/03/17 11:30 12/04/17 21:00 Lactated Ringer's IV 150 mls/hr .Q6H40M [facility] Administration Propofol 1,000 mg in 100 mls @ 2.3 mls/hr 12/04/17 09:28 12/04/17 10:45 Diprivan IV 0 mcg/kg/min .Q24H PRN 0 mls/hr TITRATE PER MD ORDER Titration Protocol 5 MCG/KG/MIN Meropenem 500 mg/ Sodium 100 mls @ 100 mls/hr 12/04/17 22:00 12/05/17 06:08 Chloride IVPB 100 mls/hr Q8 [facility] Administration Protocol Linezolid 600 mg in 300 mls @ 200 mls/hr 12/04/17 22:00 12/04/17 22:05 Zyvox 600mg/300ml D5w IVPB 200 mls/hr Q12 [facility] Administration Protocol Insulin Human Lispro 0 units 11/26/17 09:00 12/05/17 03:05 Humalog Low SC Not Given Q6H [facility] Protocol Levalbuterol HCl 0.63 mg 12/02/17 09:55 12/05/17 00:35 Xopenex IH 0.63 mg [id number] PRN Administration Shortness of Breath Levetiracetam 750 mg 12/04/17 22:00 Keppra PO Q12 [facility] Lorazepam 4 mg 12/02/17 15:25 12/04/17 21:38 Ativan IVP 4 mg Q4H PRN Administration Agitation Metoprolol Tartrate 5 mg 12/02/17 16:00 12/05/17 04:01 Lopressor IVP Not Given Q4 [facility] Multivitamins/Minerals 1 tab 11/29/17 08:00 12/04/17 12:00 Therapeutic-M Tab PO 1 tab 0800 [facility] Administration Pantoprazole Sodium 40 mg 11/22/17 10:00 12/04/17 12:01 Protonix Inj IVP 40 mg DAILY [facility] Administration Thiamine HCl 100 mg 11/28/17 14:00 12/04/17 18:05 Vitamin B1 Tab PO 100 mg TID [facility] Administration Tobramycin Sulfate 0.08 gm 12/04/17 11:02 Tobramycin Inj IH [id number] [facility] Zinc Sulfate 220 mg 11/28/17 11:30 12/04/17 12:01 Zinc Sulfate 220 Mg Cap PO 220 mg DAILY [facility] Administration - Patient Studies Lab Studies: Microbiology Studies 12/02/17 03:30 Blood Culture - Preliminary Blood-Venous NO GROWTH AFTER 3 DAYS 12/02/17 03:00 Blood Culture - Preliminary Blood-Venous NO GROWTH AFTER 3 DAYS 12/04/17 14:09 Gram Stain - Final Sputum 11/30/17 21:45 Blood Culture - Preliminary Blood-Venous NO GROWTH AFTER 4 DAYS 11/30/17 22:00 Blood Culture - Preliminary Blood-Venous NO GROWTH AFTER 4 DAYS Lab Studies 12/05/17 12/05/17 12/05/17 Range/Units 06:45 06:45 06:45 WBC 10.1 (4.5-11.0) 10^3/ul RBC 3.33 L (3.5-6.1) 10^6/uL Hgb 10.0 L (14.0-18.0) g/dL Hct 30.5 L (42.0-52.0) % MCV 91.6 (80.0-105.0) fl MCH 30.0 (25.0-35.0) pg MCHC 32.8 (31.0-37.0) g/dl RDW 13.7 (11.5-14.5) % Plt Count 266 (120.0-450.0) 10^3/uL MPV 10.8 (7.0-11.0) fl PT 18.5 H (9.4-12.5) SECONDS INR 1.59 H (0.93-1.08) pCO2 (35-45) mm/Hg pO2 (80-100) mm/Hg HCO3 (21-28) mmol/L ABG pH (7.35-7.45) ABG Total CO2 (22-28) mmol.L ABG O2 Saturation (95-98) % ABG O2 Content (15-23) ML/dl ABG Base Excess (-2.0-3.0) mmol/L ABG Hemoglobin (11.7-17.4) g/dL ABG Carboxyhemoglobin (0.5-1.5) % POC ABG HHb (Measured) (0-5) % ABG Methemoglobin (0.0-3.0) % ABG O2 Capacity (16-24) mL/dl Hgb O2 Saturation (95.0-98.0) % FiO2 % Sodium 143 (132-148) mmol/L Potassium 3.8 (3.6-5.0) mmol/L Chloride 108 H (98-107) mmol/L Carbon Dioxide 28 (21-33) mmol/L Anion Gap 10 (10-20) BUN 12 (7-21) mg/dL Creatinine 0.7 L (0.8-1.5) mg/dl Est GFR ( Amer) > 60 Est GFR (Non-Af Amer) > 60 POC Glucose (mg/dL) (65-110) mg/dL Random Glucose 143 H (70-110) mg/dL Calcium 8.6 (8.4-10.5) mg/dL Phosphorus 2.9 (2.5-4.5) mg/dL Magnesium 2.0 (1.7-2.2) mg/dL Total Bilirubin 0.7 (0.2-1.3) mg/dL AST 50 (17-59) U/L ALT 75 H (7-56) U/L Alkaline Phosphatase 48 (38-126) U/L C-React Prot High Sens (1.00-3.00) mg/L Total Protein 5.1 L (5.8-8.3) g/dL Albumin 2.6 L (3.0-4.8) g/dL Globulin 2.5 gm/dL Albumin/Globulin Ratio 1.0 L (1.1-1.8) 12/05/17 12/05/17 12/04/17 Range/Units 06:15 03:00 20:53 WBC (4.5-11.0) 10^3/ul RBC (3.5-6.1) 10^6/uL Hgb (14.0-18.0) g/dL Hct (42.0-52.0) % MCV (80.0-105.0) fl MCH (25.0-35.0) pg MCHC (31.0-37.0) g/dl RDW (11.5-14.5) % Plt Count (120.0-450.0) 10^3/uL MPV (7.0-11.0) fl PT (9.4-12.5) SECONDS INR (0.93-1.08) pCO2 42 (35-45) mm/Hg pO2 190.0 H (80-100) mm/Hg HCO3 26.6 (21-28) mmol/L ABG pH 7.41 (7.35-7.45) ABG Total CO2 27.9 (22-28) mmol.L ABG O2 Saturation 100.1 H (95-98) % ABG O2 Content 13.4 L (15-23) ML/dl ABG Base Excess 1.7 (-2.0-3.0) mmol/L ABG Hemoglobin 9.5 L (11.7-17.4) g/dL ABG Carboxyhemoglobin 1.6 H (0.5-1.5) % POC ABG HHb (Measured) -0.1 L (0-5) % ABG Methemoglobin 1.4 (0.0-3.0) % ABG O2 Capacity 13.4 L (16-24) mL/dl Hgb O2 Saturation 97.0 (95.0-98.0) % FiO2 60.0 % Sodium (132-148) mmol/L Potassium (3.6-5.0) mmol/L Chloride (98-107) mmol/L Carbon Dioxide (21-33) mmol/L Anion Gap (10-20) BUN (7-21) mg/dL Creatinine (0.8-1.5) mg/dl Est GFR ( Amer) Est GFR (Non-Af Amer) POC Glucose (mg/dL) 102 115 H (65-110) mg/dL Random Glucose (70-110) mg/dL Calcium (8.4-10.5) mg/dL Phosphorus (2.5-4.5) mg/dL Magnesium (1.7-2.2) mg/dL Total Bilirubin (0.2-1.3) mg/dL AST (17-59) U/L ALT (7-56) U/L Alkaline Phosphatase (38-126) U/L C-React Prot High Sens (1.00-3.00) mg/L Total Protein (5.8-8.3) g/dL Albumin (3.0-4.8) g/dL Globulin gm/dL Albumin/Globulin Ratio (1.1-1.8) 12/04/17 12/04/17 12/03/17 Range/Units 14:56 09:09 14:20 WBC (4.5-11.0) 10^3/ul RBC (3.5-6.1) 10^6/uL Hgb (14.0-18.0) g/dL Hct (42.0-52.0) % MCV (80.0-105.0) fl MCH (25.0-35.0) pg MCHC (31.0-37.0) g/dl RDW (11.5-14.5) % Plt Count (120.0-450.0) 10^3/uL MPV (7.0-11.0) fl PT (9.4-12.5) SECONDS INR (0.93-1.08) pCO2 (35-45) mm/Hg pO2 (80-100) mm/Hg HCO3 (21-28) mmol/L ABG pH (7.35-7.45) ABG Total CO2 (22-28) mmol.L ABG O2 Saturation (95-98) % ABG O2 Content (15-23) ML/dl ABG Base Excess (-2.0-3.0) mmol/L ABG Hemoglobin (11.7-17.4) g/dL ABG Carboxyhemoglobin (0.5-1.5) % POC ABG HHb (Measured) (0-5) % ABG Methemoglobin (0.0-3.0) % ABG O2 Capacity (16-24) mL/dl Hgb O2 Saturation (95.0-98.0) % FiO2 % Sodium (132-148) mmol/L Potassium (3.6-5.0) mmol/L Chloride (98-107) mmol/L Carbon Dioxide (21-33) mmol/L Anion Gap (10-20) BUN (7-21) mg/dL Creatinine (0.8-1.5) mg/dl Est GFR ( Amer) Est GFR (Non-Af Amer) POC Glucose (mg/dL) 124 H 103 (65-110) mg/dL Random Glucose (70-110) mg/dL Calcium (8.4-10.5) mg/dL Phosphorus (2.5-4.5) mg/dL Magnesium (1.7-2.2) mg/dL Total Bilirubin (0.2-1.3) mg/dL AST (17-59) U/L ALT (7-56) U/L Alkaline Phosphatase (38-126) U/L C-React Prot High Sens > 15.00 H (1.00-3.00) mg/L Total Protein (5.8-8.3) g/dL Albumin (3.0-4.8) g/dL Globulin gm/dL Albumin/Globulin Ratio (1.1-1.8) Laboratory Results - last 24 hr 12/03/17 12/04/17 12/04/17 14:20 09:09 14:56 WBC RBC Hgb Hct MCV MCH MCHC RDW Plt Count MPV PT INR pCO2 pO2 HCO3 ABG pH ABG Total CO2 ABG O2 Saturation ABG O2 Content ABG Base Excess ABG Hemoglobin ABG Carboxyhemoglobin POC ABG HHb (Measured) ABG Methemoglobin ABG O2 Capacity Hgb O2 Saturation FiO2 Sodium Potassium Chloride Carbon Dioxide Anion Gap BUN Creatinine Est GFR ( Amer) Est GFR (Non-Af Amer) POC Glucose (mg/dL) 103 124 H Random Glucose Calcium Phosphorus Magnesium Total Bilirubin AST ALT Alkaline Phosphatase C-React Prot High Sens > 15.00 H Total Protein Albumin Globulin Albumin/Globulin Ratio 12/04/17 12/05/17 12/05/17 20:53 03:00 06:15 WBC RBC Hgb Hct MCV MCH MCHC RDW Plt Count MPV PT INR pCO2 42 pO2 190.0 H HCO3 26.6 ABG pH 7.41 ABG Total CO2 27.9 ABG O2 Saturation 100.1 H ABG O2 Content 13.4 L ABG Base Excess 1.7 ABG Hemoglobin 9.5 L ABG Carboxyhemoglobin 1.6 H POC ABG HHb (Measured) -0.1 L ABG Methemoglobin 1.4 ABG O2 Capacity 13.4 L Hgb O2 Saturation 97.0 FiO2 60.0 Sodium Potassium Chloride Carbon Dioxide Anion Gap BUN Creatinine Est GFR ( Amer) Est GFR (Non-Af Amer) POC Glucose (mg/dL) 115 H 102 Random Glucose Calcium Phosphorus Magnesium Total Bilirubin AST ALT Alkaline Phosphatase C-React Prot High Sens Total Protein Albumin Globulin Albumin/Globulin Ratio 12/05/17 12/05/17 12/05/17 06:45 06:45 06:45 WBC 10.1 RBC 3.33 L Hgb 10.0 L Hct 30.5 L MCV 91.6 MCH 30.0 MCHC 32.8 RDW 13.7 Plt Count 266 MPV 10.8 PT 18.5 H INR 1.59 H pCO2 pO2 HCO3 ABG pH ABG Total CO2 ABG O2 Saturation ABG O2 Content ABG Base Excess ABG Hemoglobin ABG Carboxyhemoglobin POC ABG HHb (Measured) ABG Methemoglobin ABG O2 Capacity Hgb O2 Saturation FiO2 Sodium 143 Potassium 3.8 Chloride 108 H Carbon Dioxide 28 Anion Gap 10 BUN 12 Creatinine 0.7 L Est GFR ( Amer) > 60 Est GFR (Non-Af Amer) > 60 POC Glucose (mg/dL) Random Glucose 143 H Calcium 8.6 Phosphorus 2.9 Magnesium 2.0 Total Bilirubin 0.7 AST 50 ALT 75 H Alkaline Phosphatase 48 C-React Prot High Sens Total Protein 5.1 L Albumin 2.6 L Globulin 2.5 Albumin/Globulin Ratio 1.0 L Fingerstick Blood Sugar Results: 156 Review of Systems - Review of Systems Systems not reviewed;Unavailable: Intubated Critical Care Progress Note - Ventilator Checklist Head of Bed 30 Degrees: Yes Daily Sedation Vacation: Yes Daily Assessment of Readiness to Wean: Yes Daily Spontaneous Breathing Trial: Yes PUD Prophalyxis: Yes DVT Prophylaxis: Yes Oral Care with Chlorhexidine Gluconate {CHG}: Yes - Vent Settings MODE:: PRVC - Extremities/Vascular Does the Patient have a Central Venous Catheter?: Yes Insertion Site: Internal Jugular Vein (L) Does the Patient need a Central Venous Catheter?: Yes Does the Patient have a Mackenzie Catheter?: Yes Does the Patient need a Mackenzie Catheter?: Yes - Restraints Justification for Restraints: High risk for self extubation, High risk for removing IV access, High risk for harming self - Prophylaxis GI Prophylaxis GI: PPI - Prophylaxis DVT Prophylaxis DVT: Heparin SQ - Nutrition Nutrition: Nutrition Category Date Time Status NPO Diet [DIET] Diets 11/21/17 Breakfast Ordered Assessment/Plan - Assessment and Plan (Free Text) Assessment: 62yo M with PMHx of Bipolar disorder and ETOH abuse in ICU for DTs 2/2 ETOH withdrawal. Patient initially admitted to psych for suicidal ideation then transferred to in-patient due to severe ETOH withdrawal with DTs requiring high- dose sedation and intubation. Rhabdomyolysis was also noted, but has been improving. CXR showing worsening of RLL consolidation. Plan: Neuro: - Intubated and sedated on precedex, fentanyl d/c - will continue attempting to wean off sedation daily - Ativan prn to avoid over-sedation - will started on Propranolol and Cyptohepatadine for tremor, monitor for changes - continue thiamine, folic acid and multivitamin supplements - Neuro consulted- recs appreciated - EEG showed subclinical seizure, neuro recommending repeat EEG - MRI brain showed persistent b/l maxially, ethomoid and sphoenoid sinusitis w/ mastoid effusions - Keppra 750mg BID for seizure precautions - Continue CIWA protocol, seizure precaution, aspiration precaution - Head CT negative for acute pathology Cardio: - HD stable - Maintain MAP> 65mmHg - Elevated HR likely 2/2 withdrawals - Hydralazine PRN for BP control - Propranolol started scheduled, Lopressor d/c Pulm: - Intubated- wean as tolerated - Protective lung ventilation strategy, HOB elevated, daily oral care, and aspiration precautions, DVT and GI ppx, as well as daily attempts to wean off vent and sedation - CXR showed interval worsening of RLL consolidation - Xopenex PRN - will cont Meropenem and Linezolid as well as tobramycin inhaled for CXR - Maintain spO2>90% GI: - cont OG tube feeds - Thiamine, Folic acid, and MV for ETOH withdrawal and DTs Heme: - Hgb stable - platelets stable Nephro: - Rhabdomyolysis improving, will cont LR - daily CPK to monitor for rhabdo - Hypernatremia improved - Will continue to monitor electrolytes and replace as needed - Continue to monitor I&O ID: - Fevers likely 2/2 withdrawals; blood cultures and UA negative so far, but CXR found RLL consolidation; will cont Meropenem, Linezolid and Tobramycin inhaled and monitor fevers - mild leukocytosis - Bacitracin, Zinc, MV and vit C for skin - ID consulted- recs appreciated - PICC line order placed Psych: - Hx of Bipolar - Psych consulted- recs appreciated - will evaluate once off of sedation - Consent for trach/peg and PICC line today by Dr. Velez with family members over phone GI ppx: Protonix DVT ppx: Heparin SC and SCDs Diet: Tube feeds Dispo: Will try to wean off of sedation as tolerated. Will trial wean off vent daily. Patient was seen, examined, and discussed with attending, Dr. Agustin Traore PGY1 Pager [phone] <Mike Velez - Last Filed: 12/05/17 17:31> CCU Objective - Vital Signs / Intake & Output Vital Signs (Last 4 hours): Vital Signs Resp Pulse Ox 12/05/17 13:33 22 100 Intake and Output (Last 8hrs): Intake & Output 12/05/17 12/05/17 12/05/17 06:59 14:59 22:59 Intake Total 100 2448 Output Total 700 Balance 100 1748 Intake: IV 100 2048 Fentanyl 228 Right Antecubital 1500 precedex 120 Oral 400 Output: Urine 700 Urethral (Mackenzie) 700 Other: # Bowel Movements 0 - Medications Active Medications: Active Medications Generic Name Dose Route Start Last Admin Trade Name Freq PRN Reason Stop Dose Admin Acetaminophen 650 mg 12/05/17 12:27 Tylenol 650 Mg Supp RC Q6H PRN Fever >100.4 F Ascorbic Acid 500 mg 11/28/17 11:30 12/05/17 09:25 Vitamin C 500 Mg Tab PO 500 mg DAILY [facility] Administration Bacitracin 1 ea 11/28/17 08:51 11/28/17 09:34 Bacitracin TOP 1 ea Q6 PRN Administration Swelling Cyproheptadine HCl 4 mg 12/05/17 11:15 12/05/17 11:45 Periactin PO 4 mg Q8H [facility] Administration Docusate Sodium 100 mg 12/05/17 18:00 Colace Liquid PO BID [facility] Folic Acid 1 mg 12/01/17 10:15 12/05/17 09:25 Folic Acid PO 1 mg DAILY [facility] Administration Heparin Sodium (Porcine) 5,000 units 12/03/17 08:15 12/05/17 13:10 Heparin SC 5,000 units Q8 [facility] Administration Protocol Hydralazine HCl 10 mg 11/29/17 14:56 12/02/17 12:56 Apresoline IVP 10 mg Q6 PRN Administration give if SBP >160 Dexmedetomidine HCl 400 mcg in 100 mls @ 3.629 mls/hr 11/26/17 09:21 15:45 Precedex 4 Mcg/Ml (100 Ml) IV 1 mcg/kg/hr .Q24H PRN 18.144 mls/hr [facility] Administration Protocol 0.2 MCG/KG/HR Lactated Ringer's 1,000 mls @ 150 mls/hr 12/03/17 11:30 12/05/17 09:53 Lactated Ringer's IV 150 mls/hr .Q6H40M [facility] Administration Meropenem 500 mg/ Sodium 100 mls @ 100 mls/hr 12/04/17 22:00 12/05/17 13:07 Chloride IVPB 100 mls/hr Q8 [facility] Administration Protocol Linezolid 600 mg in 300 mls @ 200 mls/hr 12/04/17 22:00 12/05/17 09:24 Zyvox 600mg/300ml D5w IVPB 200 mls/hr Q12 [facility] Administration Protocol Insulin Human Lispro 0 units 11/26/17 09:00 12/05/17 10:10 Humalog Low SC Not Given Q6H [facility] Protocol Levalbuterol HCl 0.63 mg 12/02/17 09:55 12/05/17 13:29 Xopenex IH 0.63 mg [id number] PRN Administration Shortness of Breath Levetiracetam 750 mg 12/04/17 22:00 12/05/17 09:24 Keppra PO 750 mg Q12 [facility] Administration Lorazepam 4 mg 12/05/17 16:02 Ativan IVP Q8H PRN [facility] Multivitamins/Minerals 1 tab 11/29/17 08:00 12/05/17 09:25 Therapeutic-M Tab PO 1 tab 0800 [facility] Administration Pantoprazole Sodium 40 mg 11/22/17 10:00 12/05/17 09:26 Protonix Inj IVP 40 mg DAILY [facility] Administration Polyethylene Glycol 17 gm 12/05/17 18:00 Miralax PO BID [facility] Propranolol HCl 40 mg 12/05/17 11:00 12/05/17 11:28 Inderal PO 40 mg BID [facility] Administration Thiamine HCl 100 mg 11/28/17 14:00 12/05/17 13:10 Vitamin B1 Tab PO 100 mg TID [facility] Administration Tobramycin Sulfate 0.08 gm 12/05/17 11:00 12/05/17 11:44 Tobramycin Inj IH 0.08 gm [id number] [facility] Administration Valproate Sodium 250 mg 12/05/17 22:00 Depakene Cap PO Q12 [facility] Zinc Sulfate 220 mg 11/28/17 11:30 12/05/17 09:25 Zinc Sulfate 220 Mg Cap PO 220 mg DAILY [facility] Administration - Patient Studies Lab Studies: Microbiology Studies 12/02/17 03:30 Blood Culture - Preliminary Blood-Venous NO GROWTH AFTER 3 DAYS 12/02/17 03:00 Blood Culture - Preliminary Blood-Venous NO GROWTH AFTER 3 DAYS 12/04/17 14:09 Gram Stain - Final Sputum 11/30/17 21:45 Blood Culture - Preliminary Blood-Venous NO GROWTH AFTER 4 DAYS 11/30/17 22:00 Blood Culture - Preliminary Blood-Venous NO GROWTH AFTER 4 DAYS Lab Studies 12/05/17 12/05/17 12/05/17 Range/Units 10:09 06:45 06:45 WBC (4.5-11.0) 10^3/ul RBC (3.5-6.1) 10^6/uL Hgb (14.0-18.0) g/dL Hct (42.0-52.0) % MCV (80.0-105.0) fl MCH (25.0-35.0) pg MCHC (31.0-37.0) g/dl RDW (11.5-14.5) % Plt Count (120.0-450.0) 10^3/uL MPV (7.0-11.0) fl PT 18.5 H (9.4-12.5) SECONDS INR 1.59 H (0.93-1.08) pCO2 (35-45) mm/Hg pO2 (80-100) mm/Hg HCO3 (21-28) mmol/L ABG pH (7.35-7.45) ABG Total CO2 (22-28) mmol.L ABG O2 Saturation (95-98) % ABG O2 Content (15-23) ML/dl ABG Base Excess (-2.0-3.0) mmol/L ABG Hemoglobin (11.7-17.4) g/dL ABG Carboxyhemoglobin (0.5-1.5) % POC ABG HHb (Measured) (0-5) % ABG Methemoglobin (0.0-3.0) % ABG O2 Capacity (16-24) mL/dl Hgb O2 Saturation (95.0-98.0) % FiO2 % Sodium 143 (132-148) mmol/L Potassium 3.8 (3.6-5.0) mmol/L Chloride 108 H (98-107) mmol/L Carbon Dioxide 28 (21-33) mmol/L Anion Gap 10 (10-20) BUN 12 (7-21) mg/dL Creatinine 0.7 L (0.8-1.5) mg/dl Est GFR ( Amer) > 60 Est GFR (Non-Af Amer) > 60 POC Glucose (mg/dL) 125 H (65-110) mg/dL Random Glucose 143 H (70-110) mg/dL Calcium 8.6 (8.4-10.5) mg/dL Phosphorus 2.9 (2.5-4.5) mg/dL Magnesium 2.0 (1.7-2.2) mg/dL Total Bilirubin 0.7 (0.2-1.3) mg/dL AST 50 (17-59) U/L ALT 75 H (7-56) U/L Alkaline Phosphatase 48 (38-126) U/L Total Creatine Kinase (35-230) U/L Total Protein 5.1 L (5.8-8.3) g/dL Albumin 2.6 L (3.0-4.8) g/dL Globulin 2.5 gm/dL Albumin/Globulin Ratio 1.0 L (1.1-1.8) 12/05/17 12/05/17 12/05/17 Range/Units 06:45 06:30 06:15 WBC 10.1 (4.5-11.0) 10^3/ul RBC 3.33 L (3.5-6.1) 10^6/uL Hgb 10.0 L (14.0-18.0) g/dL Hct 30.5 L (42.0-52.0) % MCV 91.6 (80.0-105.0) fl MCH 30.0 (25.0-35.0) pg MCHC 32.8 (31.0-37.0) g/dl RDW 13.7 (11.5-14.5) % Plt Count 266 (120.0-450.0) 10^3/uL MPV 10.8 (7.0-11.0) fl PT (9.4-12.5) SECONDS INR (0.93-1.08) pCO2 42 (35-45) mm/Hg pO2 190.0 H (80-100) mm/Hg HCO3 26.6 (21-28) mmol/L ABG pH 7.41 (7.35-7.45) ABG Total CO2 27.9 (22-28) mmol.L ABG O2 Saturation 100.1 H (95-98) % ABG O2 Content 13.4 L (15-23) ML/dl ABG Base Excess 1.7 (-2.0-3.0) mmol/L ABG Hemoglobin 9.5 L (11.7-17.4) g/dL ABG Carboxyhemoglobin 1.6 H (0.5-1.5) % POC ABG HHb (Measured) -0.1 L (0-5) % ABG Methemoglobin 1.4 (0.0-3.0) % ABG O2 Capacity 13.4 L (16-24) mL/dl Hgb O2 Saturation 97.0 (95.0-98.0) % FiO2 60.0 % Sodium (132-148) mmol/L Potassium (3.6-5.0) mmol/L Chloride (98-107) mmol/L Carbon Dioxide (21-33) mmol/L Anion Gap (10-20) BUN (7-21) mg/dL Creatinine (0.8-1.5) mg/dl Est GFR ( Amer) Est GFR (Non-Af Amer) POC Glucose (mg/dL) (65-110) mg/dL Random Glucose (70-110) mg/dL Calcium (8.4-10.5) mg/dL Phosphorus (2.5-4.5) mg/dL Magnesium (1.7-2.2) mg/dL Total Bilirubin (0.2-1.3) mg/dL AST (17-59) U/L ALT (7-56) U/L Alkaline Phosphatase (38-126) U/L Total Creatine Kinase 215 (35-230) U/L Total Protein (5.8-8.3) g/dL Albumin (3.0-4.8) g/dL Globulin gm/dL Albumin/Globulin Ratio (1.1-1.8) 12/05/17 12/04/17 12/04/17 Range/Units 03:00 20:53 14:56 WBC (4.5-11.0) 10^3/ul RBC (3.5-6.1) 10^6/uL Hgb (14.0-18.0) g/dL Hct (42.0-52.0) % MCV (80.0-105.0) fl MCH (25.0-35.0) pg MCHC (31.0-37.0) g/dl RDW (11.5-14.5) % Plt Count (120.0-450.0) 10^3/uL MPV (7.0-11.0) fl PT (9.4-12.5) SECONDS INR (0.93-1.08) pCO2 (35-45) mm/Hg pO2 (80-100) mm/Hg HCO3 (21-28) mmol/L ABG pH (7.35-7.45) ABG Total CO2 (22-28) mmol.L ABG O2 Saturation (95-98) % ABG O2 Content (15-23) ML/dl ABG Base Excess (-2.0-3.0) mmol/L ABG Hemoglobin (11.7-17.4) g/dL ABG Carboxyhemoglobin (0.5-1.5) % POC ABG HHb (Measured) (0-5) % ABG Methemoglobin (0.0-3.0) % ABG O2 Capacity (16-24) mL/dl Hgb O2 Saturation (95.0-98.0) % FiO2 % Sodium (132-148) mmol/L Potassium (3.6-5.0) mmol/L Chloride (98-107) mmol/L Carbon Dioxide (21-33) mmol/L Anion Gap (10-20) BUN (7-21) mg/dL Creatinine (0.8-1.5) mg/dl Est GFR ( Amer) Est GFR (Non-Af Amer) POC Glucose (mg/dL) 102 115 H 124 H (65-110) mg/dL Random Glucose (70-110) mg/dL Calcium (8.4-10.5) mg/dL Phosphorus (2.5-4.5) mg/dL Magnesium (1.7-2.2) mg/dL Total Bilirubin (0.2-1.3) mg/dL AST (17-59) U/L ALT (7-56) U/L Alkaline Phosphatase (38-126) U/L Total Creatine Kinase (35-230) U/L Total Protein (5.8-8.3) g/dL Albumin (3.0-4.8) g/dL Globulin gm/dL Albumin/Globulin Ratio (1.1-1.8) Laboratory Results - last 24 hr 12/04/17 12/04/17 12/05/17 14:56 20:53 03:00 WBC RBC Hgb Hct MCV MCH MCHC RDW Plt Count MPV PT INR pCO2 pO2 HCO3 ABG pH ABG Total CO2 ABG O2 Saturation ABG O2 Content ABG Base Excess ABG Hemoglobin ABG Carboxyhemoglobin POC ABG HHb (Measured) ABG Methemoglobin ABG O2 Capacity Hgb O2 Saturation FiO2 Sodium Potassium Chloride Carbon Dioxide Anion Gap BUN Creatinine Est GFR ( Amer) Est GFR (Non-Af Amer) POC Glucose (mg/dL) 124 H 115 H 102 Random Glucose Calcium Phosphorus Magnesium Total Bilirubin AST ALT Alkaline Phosphatase Total Creatine Kinase Total Protein Albumin Globulin Albumin/Globulin Ratio 12/05/17 12/05/17 12/05/17 06:15 06:30 06:45 WBC 10.1 RBC 3.33 L Hgb 10.0 L Hct 30.5 L MCV 91.6 MCH 30.0 MCHC 32.8 RDW 13.7 Plt Count 266 MPV 10.8 PT INR pCO2 42 pO2 190.0 H HCO3 26.6 ABG pH 7.41 ABG Total CO2 27.9 ABG O2 Saturation 100.1 H ABG O2 Content 13.4 L ABG Base Excess 1.7 ABG Hemoglobin 9.5 L ABG Carboxyhemoglobin 1.6 H POC ABG HHb (Measured) -0.1 L ABG Methemoglobin 1.4 ABG O2 Capacity 13.4 L Hgb O2 Saturation 97.0 FiO2 60.0 Sodium Potassium Chloride Carbon Dioxide Anion Gap BUN Creatinine Est GFR ( Amer) Est GFR (Non-Af Amer) POC Glucose (mg/dL) Random Glucose Calcium Phosphorus Magnesium Total Bilirubin AST ALT Alkaline Phosphatase Total Creatine Kinase 215 Total Protein Albumin Globulin Albumin/Globulin Ratio 12/05/17 12/05/17 12/05/17 06:45 06:45 10:09 WBC RBC Hgb Hct MCV MCH MCHC RDW Plt Count MPV PT 18.5 H INR 1.59 H pCO2 pO2 HCO3 ABG pH ABG Total CO2 ABG O2 Saturation ABG O2 Content ABG Base Excess ABG Hemoglobin ABG Carboxyhemoglobin POC ABG HHb (Measured) ABG Methemoglobin ABG O2 Capacity Hgb O2 Saturation FiO2 Sodium 143 Potassium 3.8 Chloride 108 H Carbon Dioxide 28 Anion Gap 10 BUN 12 Creatinine 0.7 L Est GFR ( Amer) > 60 Est GFR (Non-Af Amer) > 60 POC Glucose (mg/dL) 125 H Random Glucose 143 H Calcium 8.6 Phosphorus 2.9 Magnesium 2.0 Total Bilirubin 0.7 AST 50 ALT 75 H Alkaline Phosphatase 48 Total Creatine Kinase Total Protein 5.1 L Albumin 2.6 L Globulin 2.5 Albumin/Globulin Ratio 1.0 L Attending/Attestation - Attestation I have personally seen and examined this patient.: Yes I have fully participated in the care of the patient.: Yes I have reviewed all pertinent clinical information: Yes Notes (Text): 12/05/17 17:15 62 yo male with etoh withdrawal, AMS, seizures and VDRF, now with new RLL infiltrate: sputum: GP bacilli?-->on zyvox, meropenem and inhaled tobramycin. wbc is trending down. cpk is trending down. fever is trending down. patient was on remeron prior to admission to icu, which may linger for some time. Remeron has some seroninergic properties and seronin syndrome may be on differential list of patient's presentation (AMS, autonimic instability, myoclonus/tremors, fever). Thus will start cyproheptadine and propranolol, switch from zyvox to vancomycin (1.5 mg IV q12h) and will observe. Discussed situation with patient' s next of kin--sister (over the phone, she lives on [address]): consented for trach ( Dr. Hicks was on the phone as well), PICC line. Otherwise, will continue with protective ventilation strategy, HOB>35. oral hygiene, DVT/GI prophylaxis. tolerates enteral nutrition well. making good urine and creatinine wnl. ccm time 40 min
[2017-12-05] MEDS: Lactated Ringer's 1,000 ML IV SCH ×2 (09:53→17:14)
--- NOTE | 2017-12-05 10:57 | CP.PCM.PN ---
Subjective - Date & Time of Evaluation Date of Evaluation: 12/05/17 Time of Evaluation: 09:30 - Subjective Subjective: Neuro progress note: Pt seen and examined at the bedside in ICU. Pt is currently intubated and sedated with precedex. Pt is febrile with Tmax of 102. His pupils remains reactive to light accommodation but sluggish. Pt at times restlessness and agitated. 12 Point ROS unobtainable Objective - Vital Signs/Intake and Output Vital Signs (last 24 hours): Temp Pulse Resp BP Pulse Ox 100.2 F H 75 35 H 97/51 L 100 12/05/17 07:00 12/05/17 07:00 12/04/17 10:20 12/05/17 07:00 12/05/17 07:00 Intake and Output: 12/05/17 12/05/17 06:59 18:59 Intake Total 3326 2348 Output Total 550 700 Balance 2776 1648 - Medications Medications: Current Medications Ascorbic Acid (Vitamin C 500 Mg Tab) 500 mg PO DAILY [facility] Last Admin: 12/05/17 09:25 Dose: 500 mg Bacitracin (Bacitracin) 1 ea TOP Q6 PRN PRN Reason: Swelling Last Admin: 11/28/17 09:34 Dose: 1 ea Folic Acid (Folic Acid) 1 mg PO DAILY [facility] Last Admin: 12/05/17 09:25 Dose: 1 mg Heparin Sodium (Porcine) (Heparin) 5,000 units SC Q8 SHIV PRN Reason: Protocol Last Admin: 12/05/17 06:07 Dose: 5,000 units Hydralazine HCl (Apresoline) 10 mg IVP Q6 PRN PRN Reason: give if SBP >160 Last Admin: 12/02/17 12:56 Dose: 10 mg Dexmedetomidine HCl (Precedex 4 Mcg/Ml (100 Ml)) 400 mcg in 100 mls @ 3.629 mls /hr IV .Q24H PRN; Protocol; 0.2 MCG/KG/HR PRN Reason: Agitation Last Admin: 12/05/17 07:59 Dose: 1 mcg/kg/hr, 18.144 mls/hr Lactated Ringer's (Lactated Ringer's) 1,000 mls @ 150 mls/hr IV .Q6H40M [facility] Last Admin: 12/05/17 09:53 Dose: 150 mls/hr Propofol (Diprivan) 1,000 mg in 100 mls @ 2.3 mls/hr IV .Q24H PRN; Protocol; 5 MCG/KG/MIN PRN Reason: TITRATE PER MD ORDER Last Titration: 12/04/17 10:45 Dose: 0 mcg/kg/min, 0 mls/hr Meropenem 500 mg/ Sodium (Chloride) 100 mls @ 100 mls/hr IVPB Q8 SHIV PRN Reason: Protocol Last Admin: 12/05/17 06:08 Dose: 100 mls/hr Linezolid (Zyvox 600mg/300ml D5w) 600 mg in 300 mls @ 200 mls/hr IVPB Q12 SHIV PRN Reason: Protocol Last Admin: 12/05/17 09:24 Dose: 200 mls/hr Insulin Human Lispro (Humalog Low) 0 units SC Q6H SHIV PRN Reason: Protocol Last Admin: 12/05/17 10:10 Dose: Not Given Levalbuterol HCl (Xopenex) 0.63 mg IH [id number] PRN PRN Reason: Shortness of Breath Last Admin: 12/05/17 00:35 Dose: 0.63 mg Levetiracetam (Keppra) 750 mg PO Q12 [facility] Last Admin: 12/05/17 09:24 Dose: 750 mg Lorazepam (Ativan) 4 mg IVP Q4H PRN PRN Reason: Agitation Last Admin: 12/05/17 09:47 Dose: 4 mg Metoprolol Tartrate (Lopressor) 5 mg IVP Q4 [facility] Last Admin: 12/05/17 04:01 Dose: Not Given Multivitamins/Minerals (Therapeutic-M Tab) 1 tab PO 0800 [facility] Last Admin: 12/05/17 09:25 Dose: 1 tab Pantoprazole Sodium (Protonix Inj) 40 mg IVP DAILY [facility] Last Admin: 12/05/17 09:26 Dose: 40 mg Thiamine HCl (Vitamin B1 Tab) 100 mg PO TID [facility] Last Admin: 12/05/17 09:26 Dose: 100 mg Tobramycin Sulfate (Tobramycin Inj) 0.08 gm IH [id number] [facility] Tobramycin Sulfate (Tobramycin Inj) 0.08 gm IH [id number] [facility] Zinc Sulfate (Zinc Sulfate 220 Mg Cap) 220 mg PO DAILY [facility] Last Admin: 12/05/17 09:25 Dose: 220 mg - Labs Labs: 12/05/17 06:45 12/05/17 06:45 PT 18.5 SECONDS (9.4-12.5) H 12/05/17 06:45 INR 1.59 (0.93-1.08) H 12/05/17 06:45 - Constitutional Appears: No Acute Distress - Eye Exam Pupil Exam: NORMAL ACCOMODATION Additional comments: sluggish accomodation - Neurological Exam Neurological Exam: absent: Alert, Awake Neuro motor strength exam: Left Upper Extremity: 2/1, Right Upper Extremity: 2/1 , Left Lower Extremity: 2/1, Right Lower Extremity: 2/1 Additional comments: Sedated Assessment and Plan - Assessment and Plan (Free Text) Assessment: 62yo M with PMHx of Bipolar disorder and ETOH abuse in ICU for DTs requiring intubation and sedation with precedex. EEG shows subclinical seizures. - Started on Depakote 250mg Q12H, and will titrate off of Keppra - Continue Keppra 750mg Q12 for now - Seizure precautions - Sedation with precedex as per ICU - Continue antibiotics as per ID - Blood pressure control - Maintain blood sugars 140-180 Case and plan was reviewed and discussed in detail with Dr Ingram.
[2017-12-05] MEDS: Tobramycin 1.2 gm Inj IH SCH (11:44)
--- NOTE | 2017-12-05 12:10 | CP.PCM.PN ---
<Sarkis Fuentes - Last Filed: 12/05/17 14:08> Subjective - Date & Time of Evaluation Date of Evaluation: 12/05/17 Time of Evaluation: 07:20 - Subjective Subjective: Medicine progress note for Dr. Samantha Tabor Hospitalist Service: Patient seen and examined. Patient remains intubated and sedated. Patient is currently tremulous today. He remains on Fentanyl and Precedex drip this morning. Patient had fever overnight with Tmax of 101.5 degrees. ROS is unable to be obtained. Overnight, patient's peripheral lines were infiltrated so a central line was placed. Objective - Vital Signs/Intake and Output Vital Signs (last 24 hours): Temp Pulse Resp BP Pulse Ox 100.2 F H 109 H 28 H 149/100 H 100 12/05/17 07:00 12/05/17 11:28 12/05/17 11:46 12/05/17 11:28 12/05/17 11:46 Intake and Output: 12/05/17 12/05/17 06:59 18:59 Intake Total 3326 2348 Output Total 550 700 Balance 2776 1648 - Medications Medications: Current Medications Ascorbic Acid (Vitamin C 500 Mg Tab) 500 mg PO DAILY [facility] Last Admin: 12/05/17 09:25 Dose: 500 mg Bacitracin (Bacitracin) 1 ea TOP Q6 PRN PRN Reason: Swelling Last Admin: 11/28/17 09:34 Dose: 1 ea Cyproheptadine HCl (Periactin) 4 mg PO Q8H [facility] Docusate Sodium (Colace Liquid) 100 mg PO BID [facility] Folic Acid (Folic Acid) 1 mg PO DAILY [facility] Last Admin: 12/05/17 09:25 Dose: 1 mg Heparin Sodium (Porcine) (Heparin) 5,000 units SC Q8 SHIV PRN Reason: Protocol Last Admin: 12/05/17 06:07 Dose: 5,000 units Hydralazine HCl (Apresoline) 10 mg IVP Q6 PRN PRN Reason: give if SBP >160 Last Admin: 12/02/17 12:56 Dose: 10 mg Dexmedetomidine HCl (Precedex 4 Mcg/Ml (100 Ml)) 400 mcg in 100 mls @ 3.629 mls /hr IV .Q24H PRN; Protocol; 0.2 MCG/KG/HR PRN Reason: Agitation Last Admin: 12/05/17 07:59 Dose: 1 mcg/kg/hr, 18.144 mls/hr Lactated Ringer's (Lactated Ringer's) 1,000 mls @ 150 mls/hr IV .Q6H40M [facility] Last Admin: 12/05/17 09:53 Dose: 150 mls/hr Propofol (Diprivan) 1,000 mg in 100 mls @ 2.3 mls/hr IV .Q24H PRN; Protocol; 5 MCG/KG/MIN PRN Reason: TITRATE PER MD ORDER Last Titration: 12/04/17 10:45 Dose: 0 mcg/kg/min, 0 mls/hr Meropenem 500 mg/ Sodium (Chloride) 100 mls @ 100 mls/hr IVPB Q8 SHIV PRN Reason: Protocol Last Admin: 12/05/17 06:08 Dose: 100 mls/hr Linezolid (Zyvox 600mg/300ml D5w) 600 mg in 300 mls @ 200 mls/hr IVPB Q12 SHIV PRN Reason: Protocol Last Admin: 12/05/17 09:24 Dose: 200 mls/hr Insulin Human Lispro (Humalog Low) 0 units SC Q6H [facility]IV PRN Reason: Protocol Last Admin: 12/05/17 10:10 Dose: Not Given Levalbuterol HCl (Xopenex) 0.63 mg IH [id number] PRN PRN Reason: Shortness of Breath Last Admin: 12/05/17 00:35 Dose: 0.63 mg Levetiracetam (Keppra) 750 mg PO Q12 [facility] Last Admin: 12/05/17 09:24 Dose: 750 mg Lorazepam (Ativan) 4 mg IVP Q4H PRN PRN Reason: Agitation Last Admin: 12/05/17 09:47 Dose: 4 mg Multivitamins/Minerals (Therapeutic-M Tab) 1 tab PO 0800 [facility] Last Admin: 12/05/17 09:25 Dose: 1 tab Pantoprazole Sodium (Protonix Inj) 40 mg IVP DAILY [facility] Last Admin: 12/05/17 09:26 Dose: 40 mg Polyethylene Glycol (Miralax) 17 gm PO BID [facility] Propranolol HCl (Inderal) 40 mg PO BID [facility] Last Admin: 12/05/17 11:28 Dose: 40 mg Thiamine HCl (Vitamin B1 Tab) 100 mg PO TID [facility] Last Admin: 12/05/17 09:26 Dose: 100 mg Tobramycin Sulfate (Tobramycin Inj) 0.08 gm IH [id number] [facility] Last Admin: 12/05/17 11:44 Dose: 0.08 gm Zinc Sulfate (Zinc Sulfate 220 Mg Cap) 220 mg PO DAILY [facility] Last Admin: 12/05/17 09:25 Dose: 220 mg - Labs Labs: 12/05/17 06:45 12/05/17 06:45 PT 18.5 SECONDS (9.4-12.5) H 12/05/17 06:45 INR 1.59 (0.93-1.08) H 12/05/17 06:45 - Constitutional Appears: Chronically Ill - Head Exam Head Exam: ATRAUMATIC, NORMOCEPHALIC - Eye Exam Eye Exam: Normal appearance - ENT Exam ENT Exam: Mucous Membranes Moist Additional comments: OGT, Endotracheal tube. Left IJ central line. - Respiratory Exam Respiratory Exam: Decreased Breath Sounds. absent: Rales, Rhonchi, Wheezes - Cardiovascular Exam Cardiovascular Exam: REGULAR RHYTHM, +S1, +S2 - GI/Abdominal Exam GI & Abdominal Exam: Soft. absent: Firm, Tenderness - Extremities Exam Extremities Exam: absent: Pedal Edema - Neurological Exam Neurological Exam: Altered - Skin Skin Exam: Intact, Warm Assessment and Plan - Assessment and Plan (Free Text) Assessment: 62 year old male with PMHx of Bipolar disorder and ETOH abuse in ICU for DTs. Patient initially admitted to psych for suicidal ideation then transferred to in -patient due to severe ETOH withdrawal with DTs requiring high-dose sedation and intubation. Subclinical seizure noted on EEG performed on 11/30/17. Fevers likely due to DTs versus developing RLL consolidation and pleural effusion seen on CXR. 1. ETOH withdrawal with Delirium Tremens - Intubated and sedated currently on Fentanyl, Precedex, and Propofol drips. - Neuro consulted- recs appreciated - Continue CIWA protocol, seizure precaution, aspiration precaution - Ativan 4 mg IV prn agitation - Head CT negative for acute pathology - EEG with subclinical seizure seen - IV Keppra on board for seizures - MRI brain showed persistent bilateral maxially, ethomoid and sphoenoid sinusitis with mastoid effusions 2. Altered Mental Status, currently being sedated for DT's - CT head was unremarkable - thiamine increased to protect against encephalopathy - neuro consulted, Dr. Rosenberg, appreciate recs 3. Right lower lobe consolidations - Seen on CXR and worsening, now with pleural effusion as well - Possible pneumonia with pleural effusion versus atelectasis - Empirically treated with Merrem, Zyvox 3. Sinusitis - seen on MRI - treat with Inhaled Tobramycin 4. Blisters on hands - Multivitamin, vit C and Zinc added - Bacitracin ointment to be applied 5. Rhabdomyolysis - likely secondary to DT's - renal function has not been affected - Continue hydration - CPK markedly elevated - will monitor 6. Fever, suspected due to pneumonia - Possibly secondary to ETOH withdrawals - ID consult, appreciate recs - Febrile overnight - Follow up septic workup - negative Lower Extremity ultrasound - no vegetations seen on echo 7. Electrolyte imbalance - monitor and replete as needed - Rhabdomyolysis 8. Prophylaxis - SCDs - Aspiration precautions - Seizure precautions - Heparin SC - Protonix Disposition: Remains intubated for now. MRI shows sinusitis, so inhaled Tobramycin was started. Developing RLL consolidation seen. Possible pneumonia with effusion versus atelectasis. Treating for pneumonia as likely source of fever. Consider lumbar puncture if no further improvement seen. Continue to attempt weaning off of ventilation support. Discussed and seen with hospitalist Dr. Samantha Tabor <Samantha Tabor - Last Filed: 12/05/17 15:36> Objective - Vital Signs/Intake and Output Vital Signs (last 24 hours): Temp Pulse Resp BP Pulse Ox 99.7 F H 82 22 159/83 H 100 12/05/17 13:00 12/05/17 13:00 12/05/17 13:33 12/05/17 13:00 12/05/17 13:33 Intake and Output: 12/05/17 12/05/17 06:59 18:59 Intake Total 3326 2348 Output Total 550 700 Balance 2776 1648 - Medications Medications: Current Medications Acetaminophen (Tylenol 650 Mg Supp) 650 mg RC Q6H PRN PRN Reason: Fever >100.4 F Ascorbic Acid (Vitamin C 500 Mg Tab) 500 mg PO DAILY [facility] Last Admin: 12/05/17 09:25 Dose: 500 mg Bacitracin (Bacitracin) 1 ea TOP Q6 PRN PRN Reason: Swelling Last Admin: 11/28/17 09:34 Dose: 1 ea Cyproheptadine HCl (Periactin) 4 mg PO Q8H [facility] Last Admin: 12/05/17 11:45 Dose: 4 mg Docusate Sodium (Colace Liquid) 100 mg PO BID [facility] Folic Acid (Folic Acid) 1 mg PO DAILY [facility] Last Admin: 12/05/17 09:25 Dose: 1 mg Heparin Sodium (Porcine) (Heparin) 5,000 units SC Q8 SHIV PRN Reason: Protocol Last Admin: 12/05/17 13:10 Dose: 5,000 units Hydralazine HCl (Apresoline) 10 mg IVP Q6 PRN PRN Reason: give if SBP >160 Last Admin: 12/02/17 12:56 Dose: 10 mg Dexmedetomidine HCl (Precedex 4 Mcg/Ml (100 Ml)) 400 mcg in 100 mls @ 3.629 mls /hr IV .Q24H PRN; Protocol; 0.2 MCG/KG/HR PRN Reason: Agitation Last Admin: 12/05/17 07:59 Dose: 1 mcg/kg/hr, 18.144 mls/hr Lactated Ringer's (Lactated Ringer's) 1,000 mls @ 150 mls/hr IV .Q6H40M [facility] Last Admin: 12/05/17 09:53 Dose: 150 mls/hr Meropenem 500 mg/ Sodium (Chloride) 100 mls @ 100 mls/hr IVPB Q8 [facility] PRN Reason: Protocol Last Admin: 12/05/17 13:07 Dose: 100 mls/hr Linezolid (Zyvox 600mg/300ml D5w) 600 mg in 300 mls @ 200 mls/hr IVPB Q12 [facility] PRN Reason: Protocol Last Admin: 12/05/17 09:24 Dose: 200 mls/hr Insulin Human Lispro (Humalog Low) 0 units SC Q6H [facility] PRN Reason: Protocol Last Admin: 12/05/17 10:10 Dose: Not Given Levalbuterol HCl (Xopenex) 0.63 mg IH [id number] PRN PRN Reason: Shortness of Breath Last Admin: 12/05/17 13:29 Dose: 0.63 mg Levetiracetam (Keppra) 750 mg PO Q12 [facility] Last Admin: 12/05/17 09:24 Dose: 750 mg Lorazepam (Ativan) 4 mg IVP Q4H PRN PRN Reason: Agitation Last Admin: 12/05/17 13:01 Dose: 4 mg Multivitamins/Minerals (Therapeutic-M Tab) 1 tab PO 0800 [facility] Last Admin: 12/05/17 09:25 Dose: 1 tab Pantoprazole Sodium (Protonix Inj) 40 mg IVP DAILY [facility] Last Admin: 12/05/17 09:26 Dose: 40 mg Polyethylene Glycol (Miralax) 17 gm PO BID [facility] Propranolol HCl (Inderal) 40 mg PO BID [facility] Last Admin: 12/05/17 11:28 Dose: 40 mg Thiamine HCl (Vitamin B1 Tab) 100 mg PO TID [facility] Last Admin: 12/05/17 13:10 Dose: 100 mg Tobramycin Sulfate (Tobramycin Inj) 0.08 gm IH [id number] [facility] Last Admin: 12/05/17 11:44 Dose: 0.08 gm Valproate Sodium (Depakene Cap) 250 mg PO Q12 [facility] Zinc Sulfate (Zinc Sulfate 220 Mg Cap) 220 mg PO DAILY [facility] Last Admin: 12/05/17 09:25 Dose: 220 mg - Labs Labs: 12/05/17 06:45 12/05/17 06:45 PT 18.5 SECONDS (9.4-12.5) H 12/05/17 06:45 INR 1.59 (0.93-1.08) H 12/05/17 06:45 Attending/Attestation - Attestation I have personally seen and examined this patient.: Yes I have fully participated in the care of the patient.: Yes I have reviewed all pertinent clinical information, including history, physical exam and plan: Yes Notes (Text): I have seen and examined the patient at bedside. Agree with the above note with the following additions/ exceptions: Briefly this is 62 year old male with history of bipolar disorder and chronic alcohol abuse who was admitted for alcohol withdrawal and is now manifesting severe alcohol withdrawal and delerium Tremens. He is diaphoretic however does appear calm, sedated and normotensive. HR is stable as well. Patient remains on fentanyl drip ,precedex and propofol. He has been having low grade fever which can be due to DT's vs pneumonia. LE duplex negative for DVT. MRI brain showed sinusitis. Cultures and procal negative. Patient was started on Meropenem, zyvox and tobramycin. UDS negative. Echo did not reveal any vegetation. CK elevated. Continue IVF. Patient is intubated and sedated. Weaning trial per ICU team. CT head was negative. Will continue Ativan. EEG revealed subclinical seizure on keppra. He has transaminitis due to alcohol abuse. Upon discharge patient will follow up in [facility] [place] clinic. Dr Samantha Tabor
--- NOTE | 2017-12-05 17:07 | CP.PCM.PN ---
Subjective - Date & Time of Evaluation Date of Evaluation: 12/05/17 Time of Evaluation: 16:47 - Subjective Subjective: Infectious Disease Follow Up: December 05, 2017 62 yo male with medical history that includes Bipolar disorder and alcohol abuse presented with EtOH intoxication and now in withdrawals. Originally in the psych floor for bipolar disease treatment and suicidal ideation on 11/21/2017. The patient required intubation. ID called for possible aspiration pneumonia. No fevers, leukocytosis at this time. Remains intubated. Still no fevers or leukocytosis. Remains sedated. Noted blistered skin on right hand that slightly improved. Persistent fevers up to 102.0 F in the past 24 hours but appears to be downtrending. Still no leukocytosis. Cultures from 11/30/2017 negative. New cultures sent 12/01-. Multiple blisters on the right hand. Fluid filler and dark in color. Patient highly agitated on attempts to wean sedation. Would obtain fluid from blisters for culture. Would consider CT of chest/ abdomen/pelvis. Continue on meropenem for antibiotic coverage at this point. Also on inhaled tobramycin and IV Zyvox. No new issues. Difficult extubation. Patient severely agitated when taken off sedation. Objective - Vital Signs/Intake and Output Vital Signs (last 24 hours): Temp Pulse Resp BP Pulse Ox 99.7 F H 82 22 159/83 H 100 12/05/17 13:00 12/05/17 13:00 12/05/17 13:33 12/05/17 13:00 12/05/17 13:33 Intake and Output: 12/05/17 12/05/17 06:59 18:59 Intake Total 3326 2448 Output Total 322 700 Balance 9123 4368 - Medications Medications: Current Medications Acetaminophen (Tylenol 650 Mg Supp) 650 mg RC Q6H PRN PRN Reason: Fever >100.4 F Ascorbic Acid (Vitamin C 500 Mg Tab) 500 mg PO DAILY [facility] Last Admin: 12/05/17 09:25 Dose: 500 mg Bacitracin (Bacitracin) 1 ea TOP Q6 PRN PRN Reason: Swelling Last Admin: 11/28/17 09:34 Dose: 1 ea Cyproheptadine HCl (Periactin) 4 mg PO Q8H [facility] Last Admin: 12/05/17 11:45 Dose: 4 mg Docusate Sodium (Colace Liquid) 100 mg PO BID [facility] Folic Acid (Folic Acid) 1 mg PO DAILY [facility] Last Admin: 12/05/17 09:25 Dose: 1 mg Heparin Sodium (Porcine) (Heparin) 5,000 units SC Q8 [facility] PRN Reason: Protocol Last Admin: 12/05/17 13:10 Dose: 5,000 units Hydralazine HCl (Apresoline) 10 mg IVP Q6 PRN PRN Reason: give if SBP >160 Last Admin: 12/02/17 12:56 Dose: 10 mg Dexmedetomidine HCl (Precedex 4 Mcg/Ml (100 Ml)) 400 mcg in 100 mls @ 3.629 mls /hr IV .Q24H PRN; Protocol; 0.2 MCG/KG/HR PRN Reason: Agitation Last Admin: 12/05/17 15:45 Dose: 1 mcg/kg/hr, 18.144 mls/hr Lactated Ringer's (Lactated Ringer's) 1,000 mls @ 150 mls/hr IV .Q6H40M [facility] Last Admin: 12/05/17 09:53 Dose: 150 mls/hr Meropenem 500 mg/ Sodium (Chloride) 100 mls @ 100 mls/hr IVPB Q8 [facility] PRN Reason: Protocol Last Admin: 12/05/17 13:07 Dose: 100 mls/hr Linezolid (Zyvox 600mg/300ml D5w) 600 mg in 300 mls @ 200 mls/hr IVPB Q12 [facility] PRN Reason: Protocol Last Admin: 12/05/17 09:24 Dose: 200 mls/hr Insulin Human Lispro (Humalog Low) 0 units SC Q6H [facility] PRN Reason: Protocol Last Admin: 12/05/17 10:10 Dose: Not Given Levalbuterol HCl (Xopenex) 0.63 mg IH [id number] PRN PRN Reason: Shortness of Breath Last Admin: 12/05/17 13:29 Dose: 0.63 mg Levetiracetam (Keppra) 750 mg PO Q12 [facility] Last Admin: 12/05/17 09:24 Dose: 750 mg Lorazepam (Ativan) 4 mg IVP Q8H PRN PRN Reason: Agitation Multivitamins/Minerals (Therapeutic-M Tab) 1 tab PO 0800 [facility] Last Admin: 12/05/17 09:25 Dose: 1 tab Pantoprazole Sodium (Protonix Inj) 40 mg IVP DAILY [facility] Last Admin: 12/05/17 09:26 Dose: 40 mg Polyethylene Glycol (Miralax) 17 gm PO BID [facility] Propranolol HCl (Inderal) 40 mg PO BID [facility] Last Admin: 12/05/17 11:28 Dose: 40 mg Thiamine HCl (Vitamin B1 Tab) 100 mg PO TID [facility] Last Admin: 12/05/17 13:10 Dose: 100 mg Tobramycin Sulfate (Tobramycin Inj) 0.08 gm IH [id number] [facility] Last Admin: 12/05/17 11:44 Dose: 0.08 gm Valproate Sodium (Depakene Cap) 250 mg PO Q12 [facility] Zinc Sulfate (Zinc Sulfate 220 Mg Cap) 220 mg PO DAILY [facility] Last Admin: 12/05/17 09:25 Dose: 220 mg - Labs Labs: 12/05/17 06:45 12/05/17 06:45 PT 18.5 SECONDS (9.4-12.5) H 12/05/17 06:45 INR 1.59 (0.93-1.08) H 12/05/17 06:45 - Constitutional Appears: Toxic, No Acute Distress, Chronically Ill - Eye Exam Eye Exam: EOMI, PERRL Pupil Exam: NORMAL ACCOMODATION, PERRL - ENT Exam ENT Exam: Mucous Membranes Moist, Normal External Ear Exam, TM's Normal Bilaterally - Neck Exam Neck Exam: Full ROM, Normal Inspection - Respiratory Exam Respiratory Exam: Clear to Ausculation Bilateral, NORMAL BREATHING PATTERN. absent: Rales, Rhonchi, Wheezes - Cardiovascular Exam Cardiovascular Exam: REGULAR RHYTHM, RRR, +S1, +S2 - GI/Abdominal Exam GI & Abdominal Exam: Soft, Normal Bowel Sounds. absent: Distended, Tenderness - Extremities Exam Extremities Exam: Full ROM, Normal Inspection - Neurological Exam Neurological Exam: Altered Additional comments: intubated and ventilated. - Psychiatric Exam Psychiatric exam: Normal Affect, Normal Mood - Skin Skin Exam: Intact, Normal Color Assessment and Plan - Assessment and Plan (Free Text) Assessment: 62 yo male with EtOH abuse. Developed EtOH withdrawal and now required intubation and ventilation. The patient was being evaluated by ID for potential aspiration. The patient is currently on Cefepime and Vancomycin. If aspiration is a significant concern, would either add Flagyl IV or switch Cefepime to Meropenem or Zosyn. Febrile several days ago up to 102 F. Afebrile the last few days. No leukocytosis. No findings on Chest X-ray. Supportive care. Procalcitonin is 0.14 which is low. Noted procalcitonin repeated multiple times and all showing low values. Suggests strongly against bacterial causes but does not rule out viral. More likely secondary to the EtOH withdrawal and Delirium Tremens. Case discussed with team. Off antibiotics now. Will Monitor. Difficult extubation/wean from ventilation. Agitation when off sedation. Fever up to 100.4 F today. Repeat cultures with next fever. Check urinalysis and urine culture. 11/30/2017 cultures negative so far. 12/01/2017 cultures pending. Fever downtrending. Supportive care. Chest X-ray suggesting HCAP. Antibiotics continues on Zyvox and Meropenem. Thank you for allowing me to participate in the care of the patient, we will follow with you.
[2017-12-05] MEDS: POLYETHYLENE GLYCOL 3350 17 GM/Dose PACKET PO SCH (17:54)
[2017-12-05] MEDS: Vancomycin 1.5 GM in Sodium Chloride 0.9% 500 ML IVPB SCH (18:08)
[2017-12-05] MEDS ORDERED: Tobramycin 1.2 gm Inj IH SCH ×2 (20:00→22:00)
[2017-12-06] MEDS: Dexmedetomidine 400mcg/100mL 400 MCG/100 ML BOTTLE IV PRN ×5 (01:23→20:47)
[2017-12-06] MEDS: Insulin Lispro (humaLOG) LOW Coverage SC SCH ×4 (04:45→20:57)
[2017-12-06] MEDS: Meropenem 500 MG in Sodium Chloride 0.9% 100 ML IVPB SCH ×3 (05:32→21:17)
[2017-12-06] MEDS: Lactated Ringer's 1,000 ML IV SCH ×3 (05:33→17:05)
[2017-12-06] MEDS: Vancomycin 1.5 GM in Sodium Chloride 0.9% 500 ML IVPB SCH ×2 (05:35→19:23)
[2017-12-06 05:38] LABS: ARTERIAL BLOOD GAS HCO3 25.6 mmol/L (21-28); ARTERIAL BLOOD GAS HEMOGLOBIN 10.1 g/dL (11.7-17.4); ARTERIAL BLOOD GAS O2 CAPACITY 14.1 mL/dl (16-24); ARTERIAL BLOOD GAS O2 CONTENT 14.1 ML/dl (15-23); ARTERIAL BLOOD GAS O2 SAT 99.8 % (95-98); ARTERIAL BLOOD GAS PCO2 36 mm/Hg (35-45); ARTERIAL BLOOD GAS PH 7.46 (7.35-7.45); ARTERIAL BLOOD GAS TCO2 26.7 mmol.L (22-28)
[2017-12-06 06:18] LABS: HEMOGLOBIN 9.5 g/dL (14.0-18.0); MEAN CELL VOLUME 91.2 fl (80.0-105.0); MEAN CORPUSCULAR HEMOGLOBIN 29.8 pg (25.0-35.0); MEAN CORPUSCULAR HGB CONC 32.6 g/dl (31.0-37.0); RBC 3.19 10^6/uL (3.5-6.1); RED CELL DISTRIBUTION WIDTH 13.6 % (11.5-14.5)
[2017-12-06 06:39] LABS: INR 1.43 (0.93-1.08); PROTHROMBIN TIME 16.6 SECONDS (9.4-12.5)
[2017-12-06 06:54] LABS: ALBUMIN 2.5 g/dL (3.0-4.8); ALT/SGPT 80 U/L (7-56); AST/SGOT 37 U/L (17-59); BLOOD UREA NITROGEN 9 mg/dL (7-21); CALCIUM 8.8 mg/dL (8.4-10.5); GFR AFRICAN-AMERICAN > 60; GFR NON-AFRICAN AMERICAN > 60
[2017-12-06] MEDS: Levalbuterol 0.63 MG/3 ML Inhal Soln UD IH PRN ×3 (07:03→20:06)
[2017-12-06] MEDS: Tobramycin 1.2 gm Inj IH SCH ×2 (07:50→22:16)
--- NOTE | 2017-12-06 08:37 | RAD ---
HISTORY: intubated COMPARISON: 12/05/2017 FINDINGS: LUNGS: Opacity at left lung base. Possible infiltrate. Followup. PLEURA: Small right pleural effusion. No left pleural effusion. No pneumothorax. CARDIOVASCULAR: ET tube, NG tube and left IJ central venous catheter, unchanged. OSSEOUS STRUCTURES: No significant abnormalities. VISUALIZED UPPER ABDOMEN: Normal. OTHER FINDINGS: None. IMPRESSION: New vague opacity at left base. Followup to rule out developing pneumonia. Otherwise no significant interval change.
--- NOTE | 2017-12-06 10:01 | RAD ---
HISTORY: og tube placement COMPARISON: 12/05/2017 2:46 a.m. FINDINGS: LUNGS: No active pulmonary disease. PLEURA: Small right pleural effusion. No left pleural effusion. No pneumothorax. Examination limited due to apical lordotic positioning. CARDIOVASCULAR: Normal heart size. No congestive change. Endotracheal tube, nasogastric tube and left internal jugular multi lumen central venous catheter are unchanged in position. OSSEOUS STRUCTURES: No significant abnormalities. VISUALIZED UPPER ABDOMEN: Normal. OTHER FINDINGS: None. IMPRESSION: Small right pleural effusion. Lines and tubes unchanged.
[2017-12-06] MEDS: levETIRAcetam 500 mg/5ml UD cups PO SCH ×2 (10:16→21:14)
[2017-12-06] MEDS: POLYETHYLENE GLYCOL 3350 17 GM/Dose PACKET PO SCH ×2 (10:17→17:14)
[2017-12-06] MEDS: Multivitamin With Minerals Tab PO SCH (10:18)
--- NOTE | 2017-12-06 11:15 | PN ---
DATE: 12/06/2017 ARBORIST REPRESENTATIVE NOTE SUBJECTIVE: The patient is resting with ventilator support, FIO2 of 50%. The patient is on Precedex and p.r.n. Ativan for sedation and has a history of bipolar disease and psychiatric medications as well as DTs and EtOH abuse. The patient presented from the psychiatric floor with fever and pneumonia and felt that there may be a serotonin syndrome involved in his symptoms. The patient at this time is comfortable with ventilator support and as stated above Precedex and Ativan for any agitation. PHYSICAL EXAMINATION: VITAL SIGNS: Physical exam note that his temperature is 93.2, his pulse is 57, respirations are 18 and BP is 122/68, O2 saturation is 100%. HEENT: Head is atraumatic, normocephalic. Eyes reactive to light. Ear, nose and throat seemed to be within normal limits. NECK: Supple. No JVD. No thyroid enlargement. No lymph nodes. HEART: Has regular rate and rhythm. Normal S1, S2. LUNGS: Reveal mild rhonchi bilaterally. ABDOMEN: Soft. Decreased bowel sounds. GENITALIA AND RECTAL: Deferred. MUSCULOSKELETAL: No joint deformities. EXTREMITIES: Reveal trace lower extremity edema. NEUROLOGICALLY: The patient is sedated, on the ventilator. LABORATORY DATA: As far as his laboratories are concerned, his white count is 8.0, hemoglobin is 9.5 and hematocrit 29.1 with platelets of 280,000. Arterial blood gas reveals a pH of 7.46, pCO2 of 36, pO2 of 124. His sodium is 143, potassium 3.4, chloride 109, CO2 of 28 with a of BUN of 9, creatinine of 0.7 and a glucose of 96. Chest x-rays are pending. IMPRESSION: As far as my impression, this patient presented with altered mental status and fever and may be secondary to a serotonin syndrome. He has respiratory failure with right lower lobe pneumonia requiring ventilator support and FIO2 of 50%. The patient has a psych disorder, bipolar in nature and is noted to have EtOH abuse and presented with delirium tremens. The patient also carries a diagnosis of anemia. PLAN: As far as our plan, we will continue with ventilator support and titrate the FIO2 down as tolerated. The patient is on Ativan and heparin subcu. Getting meropenem as well as vancomycin as antibiotics. He is on Xopenex as a bronchodilator. The patient continues to get thiamine and continues with Protonix and multivitamins. The patient is on Precedex and note we will continue to follow closely and treat aggressively along with the other consultants and the primary care doctor. Jesus Avelar MD
--- NOTE | 2017-12-06 15:43 | CP.PCM.PN ---
<Rai Adams - Last Filed: 12/07/17 05:59> Subjective - Date & Time of Evaluation Date of Evaluation: 12/06/17 Time of Evaluation: 08:30 - Subjective Subjective: Patient seen and examined at bedside and seems to be in no acute distress. Continues to be sedated. Patient is Afebrile for more than 24 hours. ROS unobtainable. Objective - Vital Signs/Intake and Output Vital Signs (last 24 hours): Temp Pulse Resp BP Pulse Ox 93.2 F L 83 18 112/80 92 L 12/06/17 05:00 12/06/17 13:00 12/06/17 11:25 12/06/17 13:00 12/06/17 13:00 Intake and Output: 12/06/17 12/06/17 06:59 18:59 Intake Total 300 100 Balance 300 100 - Medications Medications: Current Medications Acetaminophen (Tylenol 650 Mg Supp) 650 mg RC Q6H PRN PRN Reason: Fever >100.4 F Ascorbic Acid (Vitamin C 500 Mg Tab) 500 mg PO DAILY [facility] Last Admin: 12/06/17 10:16 Dose: 500 mg Bacitracin (Bacitracin) 1 ea TOP Q6 PRN PRN Reason: Swelling Last Admin: 11/28/17 09:34 Dose: 1 ea Cyproheptadine HCl (Periactin) 4 mg PO Q8H [facility] Last Admin: 12/06/17 10:16 Dose: 4 mg Docusate Sodium (Colace Liquid) 100 mg PO BID [facility] Last Admin: 12/06/17 10:16 Dose: 100 mg Folic Acid (Folic Acid) 1 mg PO DAILY [facility] Last Admin: 12/06/17 10:16 Dose: 1 mg Heparin Sodium (Porcine) (Heparin) 5,000 units SC Q8 [facility] PRN Reason: Protocol Last Admin: 12/06/17 13:21 Dose: 5,000 units Hydralazine HCl (Apresoline) 10 mg IVP Q6 PRN PRN Reason: give if SBP >160 Last Admin: 12/02/17 12:56 Dose: 10 mg Dexmedetomidine HCl (Precedex 4 Mcg/Ml (100 Ml)) 400 mcg in 100 mls @ 3.629 mls /hr IV .Q24H PRN; Protocol; 0.2 MCG/KG/HR PRN Reason: Agitation Last Admin: 12/06/17 08:59 Dose: 1.5 mcg/kg/hr, 27.216 mls/hr Lactated Ringer's (Lactated Ringer's) 1,000 mls @ 150 mls/hr IV .Q6H40M [facility] Last Admin: 12/06/17 10:29 Dose: 150 mls/hr Meropenem 500 mg/ Sodium (Chloride) 100 mls @ 100 mls/hr IVPB Q8 [facility] PRN Reason: Protocol Last Admin: 12/06/17 13:22 Dose: 100 mls/hr Vancomycin HCl 1.5 gm/ Sodium (Chloride) 500 mls @ 333.333 mls/hr IVPB Q12H [facility] PRN Reason: Protocol Last Admin: 12/06/17 05:35 Dose: 333.333 mls/hr Insulin Human Lispro (Humalog Low) 0 units SC Q6H [facility] PRN Reason: Protocol Last Admin: 12/06/17 04:45 Dose: Not Given Levalbuterol HCl (Xopenex) 0.63 mg IH [id number] PRN PRN Reason: Shortness of Breath Last Admin: 12/06/17 13:16 Dose: 0.63 mg Levetiracetam (Keppra) 750 mg PO Q12 [facility] Last Admin: 12/06/17 10:16 Dose: 750 mg Lorazepam (Ativan) 4 mg IVP Q8H PRN PRN Reason: Agitation Last Admin: 12/06/17 04:49 Dose: 4 mg Lorazepam (Ativan) 4 mg IVP Q4 PRN; Protocol PRN Reason: Agitation Last Admin: 12/06/17 10:28 Dose: 4 mg Multivitamins/Minerals (Therapeutic-M Tab) 1 tab PO 0800 [facility] Last Admin: 12/06/17 10:18 Dose: 1 tab Pantoprazole Sodium (Protonix Inj) 40 mg IVP DAILY [facility] Last Admin: 12/06/17 10:17 Dose: 40 mg Polyethylene Glycol (Miralax) 17 gm PO BID [facility] Last Admin: 12/06/17 10:17 Dose: 17 gm Propranolol HCl (Inderal) 40 mg PO BID [facility] Last Admin: 12/06/17 10:16 Dose: 40 mg Thiamine HCl (Vitamin B1 Tab) 100 mg PO TID [facility] Last Admin: 12/06/17 10:16 Dose: 100 mg Tobramycin Sulfate (Tobramycin Inj) 0.08 gm IH [id number] [facility] Last Admin: 12/06/17 07:50 Dose: 0.08 gm Valproate Sodium (Depakene Cap) 250 mg PO Q12 [facility] Last Admin: 12/06/17 10:16 Dose: 250 mg Zinc Sulfate (Zinc Sulfate 220 Mg Cap) 220 mg PO DAILY [facility] Last Admin: 12/06/17 10:16 Dose: 220 mg - Labs Labs: 12/06/17 06:00 12/06/17 06:00 PT 16.6 SECONDS (9.4-12.5) H 12/06/17 06:00 INR 1.43 (0.93-1.08) H 12/06/17 06:00 - Constitutional Appears: Other (sedated, diaphoretic) - Head Exam Head Exam: ATRAUMATIC, NORMAL INSPECTION, NORMOCEPHALIC - ENT Exam ENT Exam: Mucous Membranes Moist - Neck Exam Neck Exam: Normal Inspection - Respiratory Exam Respiratory Exam: Clear to Ausculation Bilateral, NORMAL BREATHING PATTERN - Cardiovascular Exam Cardiovascular Exam: REGULAR RHYTHM, +S1, +S2 - GI/Abdominal Exam GI & Abdominal Exam: Soft, Diminished Bowel Sounds - Extremities Exam Extremities Exam: Normal Inspection - Back Exam Back Exam: NORMAL INSPECTION - Neurological Exam Neurological Exam: Alert, Awake, CN II-XII Intact - Psychiatric Exam Psychiatric exam: Normal Affect, Normal Mood - Skin Skin Exam: Diaphoretic, Intact, Normal Color, Warm Assessment and Plan - Assessment and Plan (Free Text) Assessment: 62 year old male with PMHx of Bipolar disorder and ETOH abuse in ICU for DTs. Patient initially admitted to psych for suicidal ideation then transferred to in -patient due to severe ETOH withdrawal with DTs requiring high-dose sedation and intubation. Subclinical seizure noted on EEG performed on 11/30/17. Fevers likely due to DTs versus developing RLL consolidation and pleural effusion seen on CXR. Plan: 1. ETOH withdrawal with Delirium Tremens - Intubated and sedated currently on precedex - Neuro consulted- recs appreciated - Continue CIWA protocol, seizure precaution, aspiration precaution - Ativan 4 mg IV prn agitation - Head CT negative for acute pathology - EEG with subclinical seizure seen - IV Keppra on board for seizures - MRI brain showed persistent bilateral maxially, ethomoid and sphoenoid sinusitis with mastoid effusions 2. Altered Mental Status, currently being sedated for DT's - CT head was unremarkable - thiamine increased to protect against encephalopathy - neuro consulted, Dr. Rosenberg, appreciate recs 3. Right lower lobe consolidations - Seen on CXR and worsening, now with pleural effusion as well - Possible pneumonia with pleural effusion versus atelectasis - Empirically treated with Merrem. Zyvox switched to vanc 3. Sinusitis - seen on MRI - Continue to treat with Inhaled Tobramycin 4. Blisters on hands - Multivitamin, vit C and Zinc added - Bacitracin ointment to be applied 5. Rhabdomyolysis - likely secondary to DT's - renal function has not been affected - Continue hydration - CPK markedly elevated - will monitor 6. Fever, suspected due to pneumonia - Possibly secondary to ETOH withdrawals - ID consult, appreciate recs - Febrile overnight - Follow up septic workup - negative Lower Extremity ultrasound - no vegetations seen on echo -Remeron as a cause of possible serotonin syndrome; cyproheptadine and propranolol started 7. Electrolyte imbalance - monitor and replete as needed 8. Prophylaxis - SCDs - Aspiration precautions - Seizure precautions - Heparin SC - Protonix Disposition: Remains intubated for now. MRI shows sinusitis, so inhaled Tobramycin was started. Developing RLL consolidation seen. Possible pneumonia with effusion versus atelectasis. Treating for pneumonia as likely source of fever. Consider lumbar puncture if no further improvement seen. Continue to attempt weaning off of ventilation support. Discussed and seen with hospitalist Dr. Samantha Tabor <Samantha Tabor - Last Filed: 12/07/17 12:51> Objective - Vital Signs/Intake and Output Vital Signs (last 24 hours): Temp Pulse Resp BP Pulse Ox 99 F 74 30 H 146/80 100 12/07/17 04:00 12/07/17 09:38 12/07/17 07:41 12/07/17 09:38 12/07/17 08:00 Intake and Output: 12/07/17 12/07/17 06:59 18:59 Intake Total 3310 200 Output Total 400 Balance 2910 200 - Medications Medications: Current Medications Acetaminophen (Tylenol 650 Mg Supp) 650 mg RC Q6H PRN PRN Reason: Fever >100.4 F Ascorbic Acid (Vitamin C 500 Mg Tab) 500 mg PO DAILY [facility] Last Admin: 12/07/17 09:37 Dose: 500 mg Bacitracin (Bacitracin) 1 ea TOP Q6 PRN PRN Reason: Swelling Last Admin: 11/28/17 09:34 Dose: 1 ea Cyproheptadine HCl (Periactin) 4 mg PO Q8H [facility] Last Admin: 12/07/17 03:41 Dose: 4 mg Docusate Sodium (Colace Liquid) 100 mg PO BID [facility] Last Admin: 12/07/17 09:38 Dose: 100 mg Folic Acid (Folic Acid) 1 mg PO DAILY [facility] Last Admin: 12/07/17 09:38 Dose: 1 mg Heparin Sodium (Porcine) (Heparin) 5,000 units SC Q8 [facility] PRN Reason: Protocol Last Admin: 12/07/17 06:12 Dose: 5,000 units Hydralazine HCl (Apresoline) 10 mg IVP Q6 PRN PRN Reason: give if SBP >160 Last Admin: 12/02/17 12:56 Dose: 10 mg Dexmedetomidine HCl (Precedex 4 Mcg/Ml (100 Ml)) 400 mcg in 100 mls @ 3.629 mls /hr IV .Q24H PRN; Protocol; 0.2 MCG/KG/HR PRN Reason: Agitation Last Admin: 12/07/17 11:58 Dose: 1.5 mcg/kg/hr, 27.216 mls/hr Lactated Ringer's (Lactated Ringer's) 1,000 mls @ 150 mls/hr IV .Q6H40M [facility] Last Admin: 12/07/17 02:40 Dose: 150 mls/hr Meropenem 500 mg/ Sodium (Chloride) 100 mls @ 100 mls/hr IVPB Q8 [facility] PRN Reason: Protocol Last Admin: 12/07/17 05:52 Dose: 100 mls/hr Vancomycin HCl 1.5 gm/ Sodium (Chloride) 500 mls @ 333.333 mls/hr IVPB Q12H [facility] PRN Reason: Protocol Last Admin: 12/07/17 05:54 Dose: 333.333 mls/hr Insulin Human Lispro (Humalog Low) 0 units SC Q6H [facility] PRN Reason: Protocol Last Admin: 12/07/17 09:29 Dose: Not Given Levalbuterol HCl (Xopenex) 0.63 mg IH [id number] PRN PRN Reason: Shortness of Breath Last Admin: 12/07/17 07:33 Dose: 0.63 mg Levetiracetam (Keppra) 750 mg PO Q12 [facility] Last Admin: 12/07/17 09:38 Dose: 750 mg Lorazepam (Ativan) 4 mg IVP Q8H PRN PRN Reason: Agitation Last Admin: 12/07/17 03:20 Dose: 4 mg Lorazepam (Ativan) 4 mg IVP Q4 PRN; Protocol PRN Reason: Agitation Last Admin: 12/07/17 07:59 Dose: 4 mg Multivitamins/Minerals (Therapeutic-M Tab) 1 tab PO 0800 [facility] Last Admin: 12/07/17 08:02 Dose: 1 tab Pantoprazole Sodium (Protonix Inj) 40 mg IVP DAILY [facility] Last Admin: 12/07/17 09:38 Dose: 40 mg Polyethylene Glycol (Miralax) 17 gm PO BID [facility] Last Admin: 12/07/17 09:38 Dose: 17 gm Propranolol HCl (Inderal) 40 mg PO BID [facility] Last Admin: 12/07/17 09:38 Dose: 40 mg Thiamine HCl (Vitamin B1 Tab) 100 mg PO TID [facility] Last Admin: 12/07/17 09:37 Dose: 100 mg Tobramycin Sulfate (Tobramycin Inj) 0.08 gm IH [id number] [facility] Last Admin: 12/07/17 08:00 Dose: 0.08 gm Valproate Sodium (Depakene Cap) 250 mg PO Q12 [facility] Last Admin: 12/07/17 09:37 Dose: 250 mg Zinc Sulfate (Zinc Sulfate 220 Mg Cap) 220 mg PO DAILY [facility] Last Admin: 12/07/17 09:38 Dose: 220 mg - Labs Labs: 12/07/17 10:00 12/07/17 06:50 PT 16.6 SECONDS (9.4-12.5) H 12/06/17 06:00 INR 1.43 (0.93-1.08) H 12/06/17 06:00 Attending/Attestation - Attestation I have personally seen and examined this patient.: Yes I have fully participated in the care of the patient.: Yes I have reviewed all pertinent clinical information, including history, physical exam and plan: Yes Notes (Text): I have seen and examined the patient at bedside. Agree with the above note with the following additions/ exceptions: Briefly this is 62 year old male with history of bipolar disorder and chronic alcohol abuse who was admitted for alcohol withdrawal. Patient is manifesting severe alcohol withdrawal and delerium Tremens. He is diaphoretic however does appear calm, sedated and normotensive. HR is stable as well. Patient remains on precedex. Fentanyl and propofol discontinued. He has been afebrile since last night. CXR reveals RLL consolidation. LE duplex negative for DVT. MRI brain showed sinusitis. Cultures and procal negative. Patient is on Meropenem, vancomycin and tobramycin. UDS negative. Echo did not reveal any vegetation. CK elevated. Continue IVF. Patient is intubated and sedated. Weaning trial per ICU team. CT head was negative. Will continue Ativan. EEG revealed subclinical seizure on keppra. Plan to repeat EEG. He was on remeron so there was a concern of possible serotonin syndrome therefore cyproheptadine was started. He has transaminitis due to alcohol abuse. Upon discharge patient will follow up in [facility]. Dr Samantha Tabor
--- NOTE | 2017-12-06 17:44 | CP.PCM.PN ---
Subjective - Date & Time of Evaluation Date of Evaluation: 12/06/17 Time of Evaluation: 14:30 - Subjective Subjective: Infectious Disease Follow Up: December 06, 2017 62 yo male with medical history that includes Bipolar disorder and alcohol abuse presented with EtOH intoxication and now in withdrawals. Originally in the psych floor for bipolar disease treatment and suicidal ideation on 11/21/2017. The patient required intubation. ID called for possible aspiration pneumonia. No fevers, leukocytosis at this time. Remains intubated. Still no fevers or leukocytosis. Remains sedated. Noted blistered skin on right hand that slightly improved. Persistent fevers up to 102.0 F in the past 24 hours but appears to be downtrending. Still no leukocytosis. Cultures from 11/30/2017 negative. New cultures sent 12/01-. Multiple blisters on the right hand. Fluid filler and dark in color. Patient highly agitated on attempts to wean sedation. Would obtain fluid from blisters for culture. Would consider CT of chest/ abdomen/pelvis. Continue on meropenem for antibiotic coverage at this point. Also on inhaled tobramycin and IV Zyvox. No new issues. Difficult extubation. Patient severely agitated when taken off sedation. Currently afebrile but still with diaphoresis. The patient an episode of temperature as low as 93.2 F this morning. Objective - Vital Signs/Intake and Output Vital Signs (last 24 hours): Temp Pulse Resp BP Pulse Ox 99.2 F 80 18 128/71 98 12/06/17 16:00 12/06/17 17:14 12/06/17 11:25 12/06/17 17:14 12/06/17 17:00 Intake and Output: 12/06/17 12/06/17 06:59 18:59 Intake Total 300 200 Balance 300 200 - Medications Medications: Current Medications Acetaminophen (Tylenol 650 Mg Supp) 650 mg RC Q6H PRN PRN Reason: Fever >100.4 F Ascorbic Acid (Vitamin C 500 Mg Tab) 500 mg PO DAILY [facility] Last Admin: 12/06/17 10:16 Dose: 500 mg Bacitracin (Bacitracin) 1 ea TOP Q6 PRN PRN Reason: Swelling Last Admin: 11/28/17 09:34 Dose: 1 ea Cyproheptadine HCl (Periactin) 4 mg PO Q8H [facility] Last Admin: 12/06/17 10:16 Dose: 4 mg Docusate Sodium (Colace Liquid) 100 mg PO BID [facility] Last Admin: 12/06/17 17:10 Dose: 100 mg Folic Acid (Folic Acid) 1 mg PO DAILY [facility] Last Admin: 12/06/17 10:16 Dose: 1 mg Heparin Sodium (Porcine) (Heparin) 5,000 units SC Q8 SHIV PRN Reason: Protocol Last Admin: 12/06/17 13:21 Dose: 5,000 units Hydralazine HCl (Apresoline) 10 mg IVP Q6 PRN PRN Reason: give if SBP >160 Last Admin: 12/02/17 12:56 Dose: 10 mg Dexmedetomidine HCl (Precedex 4 Mcg/Ml (100 Ml)) 400 mcg in 100 mls @ 3.629 mls /hr IV .Q24H PRN; Protocol; 0.2 MCG/KG/HR PRN Reason: Agitation Last Admin: 12/06/17 17:05 Dose: 1.5 mcg/kg/hr, 27.216 mls/hr Lactated Ringer's (Lactated Ringer's) 1,000 mls @ 150 mls/hr IV .Q6H40M [facility] Last Admin: 12/06/17 17:05 Dose: 150 mls/hr Meropenem 500 mg/ Sodium (Chloride) 100 mls @ 100 mls/hr IVPB Q8 SHIV PRN Reason: Protocol Last Admin: 12/06/17 13:22 Dose: 100 mls/hr Vancomycin HCl 1.5 gm/ Sodium (Chloride) 500 mls @ 333.333 mls/hr IVPB Q12H SHIV PRN Reason: Protocol Last Admin: 12/06/17 05:35 Dose: 333.333 mls/hr Insulin Human Lispro (Humalog Low) 0 units SC Q6H SHIV PRN Reason: Protocol Last Admin: 12/06/17 15:00 Dose: Not Given Levalbuterol HCl (Xopenex) 0.63 mg IH [id number] PRN PRN Reason: Shortness of Breath Last Admin: 12/06/17 13:16 Dose: 0.63 mg Levetiracetam (Keppra) 750 mg PO Q12 [facility] Last Admin: 12/06/17 10:16 Dose: 750 mg Lorazepam (Ativan) 4 mg IVP Q8H PRN PRN Reason: Agitation Last Admin: 12/06/17 04:49 Dose: 4 mg Lorazepam (Ativan) 4 mg IVP Q4 PRN; Protocol PRN Reason: Agitation Last Admin: 12/06/17 17:24 Dose: 4 mg Multivitamins/Minerals (Therapeutic-M Tab) 1 tab PO 0800 [facility] Last Admin: 12/06/17 10:18 Dose: 1 tab Pantoprazole Sodium (Protonix Inj) 40 mg IVP DAILY [facility] Last Admin: 12/06/17 10:17 Dose: 40 mg Polyethylene Glycol (Miralax) 17 gm PO BID [facility] Last Admin: 12/06/17 17:14 Dose: 17 gm Propranolol HCl (Inderal) 40 mg PO BID [facility] Last Admin: 12/06/17 17:14 Dose: 40 mg Thiamine HCl (Vitamin B1 Tab) 100 mg PO TID [facility] Last Admin: 12/06/17 17:15 Dose: 100 mg Tobramycin Sulfate (Tobramycin Inj) 0.08 gm IH [id number] [facility] Last Admin: 12/06/17 07:50 Dose: 0.08 gm Valproate Sodium (Depakene Cap) 250 mg PO Q12 [facility] Last Admin: 12/06/17 10:16 Dose: 250 mg Zinc Sulfate (Zinc Sulfate 220 Mg Cap) 220 mg PO DAILY [facility] Last Admin: 12/06/17 10:16 Dose: 220 mg - Labs Labs: 12/06/17 06:00 12/06/17 06:00 PT 16.6 SECONDS (9.4-12.5) H 12/06/17 06:00 INR 1.43 (0.93-1.08) H 12/06/17 06:00 - Constitutional Appears: Non-toxic, No Acute Distress, Chronically Ill - Head Exam Additional comments: intubated and ventilated. - Eye Exam Eye Exam: EOMI, PERRL Pupil Exam: NORMAL ACCOMODATION, PERRL - ENT Exam ENT Exam: Mucous Membranes Moist, Normal External Ear Exam, TM's Normal Bilaterally - Neck Exam Neck Exam: Full ROM, Normal Inspection - Respiratory Exam Respiratory Exam: Clear to Ausculation Bilateral, NORMAL BREATHING PATTERN. absent: Rales, Rhonchi, Wheezes - Cardiovascular Exam Cardiovascular Exam: REGULAR RHYTHM, RRR, +S1, +S2 - GI/Abdominal Exam GI & Abdominal Exam: Soft, Normal Bowel Sounds. absent: Distended, Tenderness - Extremities Exam Extremities Exam: Full ROM, Normal Inspection - Neurological Exam Neurological Exam: Altered Additional comments: intubated and ventilated. - Psychiatric Exam Psychiatric exam: Normal Affect, Normal Mood - Skin Skin Exam: Intact, Normal Color Assessment and Plan - Assessment and Plan (Free Text) Assessment: 62 yo male with EtOH abuse. Developed EtOH withdrawal and now required intubation and ventilation. The patient was being evaluated by ID for potential aspiration. The patient is currently on Cefepime and Vancomycin. If aspiration is a significant concern, would either add Flagyl IV or switch Cefepime to Meropenem or Zosyn. Febrile several days ago up to 102 F. Afebrile the last few days. No leukocytosis. No findings on Chest X-ray. Supportive care. Procalcitonin is 0.14 which is low. Noted procalcitonin repeated multiple times and all showing low values. Suggests strongly against bacterial causes but does not rule out viral. More likely secondary to the EtOH withdrawal and Delirium Tremens. Case discussed with team. Off antibiotics now. Will Monitor. Difficult extubation/wean from ventilation. Agitation when off sedation. Afebrile today but one temperature value showed hypothermia. Repeat cultures with next fever. Check urinalysis and urine culture. 11/30/2017 cultures negative so far. 12/01/2017 cultures pending. Fever downtrending. Supportive care. Chest X-ray suggesting HCAP. Antibiotics continues on Zyvox and Meropenem. Thank you for allowing me to participate in the care of the patient, we will follow with you.
[2017-12-07] MEDS: Dexmedetomidine 400mcg/100mL 400 MCG/100 ML BOTTLE IV PRN ×7 (00:50→23:10)
[2017-12-07] MEDS: Lactated Ringer's 1,000 ML IV SCH (02:40)
[2017-12-07] MEDS: Insulin Lispro (humaLOG) LOW Coverage SC SCH ×4 (03:34→21:11)
[2017-12-07] MEDS: Meropenem 500 MG in Sodium Chloride 0.9% 100 ML IVPB SCH ×3 (05:52→22:00)
[2017-12-07] MEDS: Vancomycin 1.5 GM in Sodium Chloride 0.9% 500 ML IVPB SCH ×2 (05:54→18:06)
--- NOTE | 2017-12-07 06:10 | CP.PCM.PN ---
Subjective - Date & Time of Evaluation Date of Evaluation: 12/07/17 Time of Evaluation: 06:08 - Subjective Subjective: Mr. Koch was seen and examined at the bedside in ICU. He remains on mechanical ventilator on PRVC mode. Currently receiving Precedex and Ativan for sedation. He has episode of restlessness with tactile stimuli. He remains on bilateral wrist restraints for patient safety. He has SCD.According to staff, he had a focal movement especially in his right hand. There was no untoward events overnight. Objective - Vital Signs/Intake and Output Vital Signs (last 24 hours): Temp Pulse Resp BP Pulse Ox 99.3 F 71 18 135/72 99 12/07/17 00:00 12/07/17 03:00 12/06/17 11:25 12/07/17 03:00 12/07/17 03:00 Intake and Output: 12/06/17 12/07/17 18:59 06:59 Intake Total 2010 300 Output Total 725 Balance 1285 300 - Medications Medications: Current Medications Acetaminophen (Tylenol 650 Mg Supp) 650 mg RC Q6H PRN PRN Reason: Fever >100.4 F Ascorbic Acid (Vitamin C 500 Mg Tab) 500 mg PO DAILY [facility] Last Admin: 12/06/17 10:16 Dose: 500 mg Bacitracin (Bacitracin) 1 ea TOP Q6 PRN PRN Reason: Swelling Last Admin: 11/28/17 09:34 Dose: 1 ea Cyproheptadine HCl (Periactin) 4 mg PO Q8H [facility] Last Admin: 12/07/17 03:41 Dose: 4 mg Docusate Sodium (Colace Liquid) 100 mg PO BID [facility] Last Admin: 12/06/17 17:10 Dose: 100 mg Folic Acid (Folic Acid) 1 mg PO DAILY [facility] Last Admin: 12/06/17 10:16 Dose: 1 mg Heparin Sodium (Porcine) (Heparin) 5,000 units SC Q8 SHIV PRN Reason: Protocol Last Admin: 12/06/17 21:16 Dose: 5,000 units Hydralazine HCl (Apresoline) 10 mg IVP Q6 PRN PRN Reason: give if SBP >160 Last Admin: 12/02/17 12:56 Dose: 10 mg Dexmedetomidine HCl (Precedex 4 Mcg/Ml (100 Ml)) 400 mcg in 100 mls @ 3.629 mls /hr IV .Q24H PRN; Protocol; 0.2 MCG/KG/HR PRN Reason: Agitation Last Admin: 12/07/17 04:40 Dose: 1.5 mcg/kg/hr, 27.216 mls/hr Lactated Ringer's (Lactated Ringer's) 1,000 mls @ 150 mls/hr IV .Q6H40M [facility] Last Admin: 12/07/17 02:40 Dose: 150 mls/hr Meropenem 500 mg/ Sodium (Chloride) 100 mls @ 100 mls/hr IVPB Q8 SHIV PRN Reason: Protocol Last Admin: 12/07/17 05:52 Dose: 100 mls/hr Vancomycin HCl 1.5 gm/ Sodium (Chloride) 500 mls @ 333.333 mls/hr IVPB Q12H SHIV PRN Reason: Protocol Last Admin: 12/07/17 05:54 Dose: 333.333 mls/hr Insulin Human Lispro (Humalog Low) 0 units SC Q6H SHIV PRN Reason: Protocol Last Admin: 12/07/17 03:34 Dose: Not Given Levalbuterol HCl (Xopenex) 0.63 mg IH [id number] PRN PRN Reason: Shortness of Breath Last Admin: 12/06/17 20:06 Dose: 0.63 mg Levetiracetam (Keppra) 750 mg PO Q12 [facility] Last Admin: 12/06/17 21:14 Dose: 750 mg Lorazepam (Ativan) 4 mg IVP Q8H PRN PRN Reason: Agitation Last Admin: 12/07/17 03:20 Dose: 4 mg Lorazepam (Ativan) 4 mg IVP Q4 PRN; Protocol PRN Reason: Agitation Last Admin: 12/06/17 17:24 Dose: 4 mg Multivitamins/Minerals (Therapeutic-M Tab) 1 tab PO 0800 [facility] Last Admin: 12/06/17 10:18 Dose: 1 tab Pantoprazole Sodium (Protonix Inj) 40 mg IVP DAILY [facility] Last Admin: 12/06/17 10:17 Dose: 40 mg Polyethylene Glycol (Miralax) 17 gm PO BID [facility] Last Admin: 12/06/17 17:14 Dose: 17 gm Propranolol HCl (Inderal) 40 mg PO BID [facility] Last Admin: 12/06/17 17:14 Dose: 40 mg Thiamine HCl (Vitamin B1 Tab) 100 mg PO TID [facility] Last Admin: 12/06/17 17:15 Dose: 100 mg Tobramycin Sulfate (Tobramycin Inj) 0.08 gm IH [id number] [facility] Last Admin: 12/06/17 22:16 Dose: 0.08 gm Valproate Sodium (Depakene Cap) 250 mg PO Q12 [facility] Last Admin: 12/06/17 21:31 Dose: 250 mg Zinc Sulfate (Zinc Sulfate 220 Mg Cap) 220 mg PO DAILY [facility] Last Admin: 12/06/17 10:16 Dose: 220 mg - Labs Labs: 12/06/17 06:00 12/06/17 06:00 PT 16.6 SECONDS (9.4-12.5) H 12/06/17 06:00 INR 1.43 (0.93-1.08) H 12/06/17 06:00 - Constitutional Appears: No Acute Distress - Head Exam Head Exam: NORMAL INSPECTION - Neurological Exam Neuro motor strength exam: Left Upper Extremity: 5, Right Upper Extremity: 5, Left Lower Extremity: 5, Right Lower Extremity: 5 Additional comments: GCS-4T, with involuntary focal movement of the right upper extremity. Assessment and Plan (1) Seizure Assessment & Plan: Case discussed with Dr. Ingram, continue all current medical regimen. Recommend repeat EEG to evaluate the focal movement/ seizure. Status: Acute
[2017-12-07] MEDS: Levalbuterol 0.63 MG/3 ML Inhal Soln UD IH PRN ×2 (07:33→13:15)
[2017-12-07 07:38] LABS: ALB/GLOB RATIO 1.1 (1.1-1.8); ALBUMIN 2.4 g/dL (3.0-4.8); ALT/SGPT 79 U/L (7-56); AST/SGOT 44 U/L (17-59); BLOOD UREA NITROGEN 10 mg/dL (7-21); CALCIUM 8.4 mg/dL (8.4-10.5); GFR AFRICAN-AMERICAN > 60; GFR NON-AFRICAN AMERICAN > 60
[2017-12-07] MEDS: Tobramycin 1.2 gm Inj IH SCH (08:00)
[2017-12-07] MEDS: Multivitamin With Minerals Tab PO SCH (08:02)
[2017-12-07] MEDS: levETIRAcetam 500 mg/5ml UD cups PO SCH ×2 (09:38→21:20)
[2017-12-07] MEDS: POLYETHYLENE GLYCOL 3350 17 GM/Dose PACKET PO SCH ×2 (09:38→17:43)
[2017-12-07 10:24] LABS: BASO # 0.01 K/mm3 (0.0-2.0); BASO % 0.2 % (0.0-3.0); EOS # 0.2 (0.0-0.7); EOS % 3.8 % (1.5-5.0); GRAN # 4.77 (1.4-6.5); GRAN % 78.4 % (50.0-68.0); HEMOGLOBIN 8.8 g/dL (14.0-18.0); LYMPH # 0.6 (1.2-3.4); LYMPH % 10.4 % (22.0-35.0); MEAN CELL VOLUME 92.8 fl (80.0-105.0); MEAN CORPUSCULAR HEMOGLOBIN 30.2 pg (25.0-35.0); MEAN CORPUSCULAR HGB CONC 32.6 g/dl (31.0-37.0); MEAN PLATELET VOLUME 10.9 fl (7.0-11.0); MONO # 0.4 (0.1-0.6); MONO % 7.2 % (1.0-6.0); RBC 2.91 10^6/uL (3.5-6.1); WHITE BLOOD COUNT 6.1 10^3/ul (4.5-11.0)
--- NOTE | 2017-12-07 11:09 | PN ---
DATE: 12/07/2017 [employer] NOTE SUBJECTIVE: The patient is resting on the ventilator with FiO2 of 50%, continues to require Precedex as well as Ativan. The patient has a history of bipolar disease and is being given medications for DTs and alcohol abuse. Hemodynamically at this time, the patient is stable. PHYSICAL EXAMINATION VITAL SIGNS: Temperature is 99.3, pulse is 80, respirations are 25 and blood pressure is 135/72. SKIN: Warm and dry. HEENT: Head is atraumatic, normocephalic. Eyes, reactive to light. Ear, nose, and throat: Seemed to be within normal limits. NECK: Supple. No JVD. No thyroid enlargement or lymph nodes. HEART: Has regular rate and rhythm. Normal S1, S2. LUNGS: Reveal mild rhonchi at the bases. ABDOMEN: Soft. Decreased bowel sounds. GENITALIA: Deferred. RECTAL: Deferred. MUSCULOSKELETAL: No joint deformities. EXTREMITIES: Reveal trace lower extremity edema. NEUROLOGICAL: He is unresponsive, on the ventilator at this time. DATA: As far as his laboratories are concerned, his sodium is 144, potassium 3.2, chloride 110, CO2 of 27 with a BUN of 10, creatinine of 0.7 and a glucose of 104. CBC and arterial blood gas were pending. IMPRESSION: As far as my impression, the patient initially presented with altered mental status and fever, it is felt may be secondary to serotonin syndrome. The patient has a respiratory failure and right lower lobe pneumonia, requiring ventilator support. He also carries a diagnosis of psych disorder/bipolar and EtOH abuse and at this time, may be in DTs. The patient has anemia. PLAN: We will continue with ventilator support and decrease the FiO2 as tolerated. The patient will continue with Ativan as well as a Precedex and subcutaneous heparin. Getting meropenem and vancomycin as far as antibiotics and Xopenex for bronchodilators. He is on thiamine, Protonix and multivitamin and we will continue to treat aggressively along with the other consultants and the primary care doctor. Jesus Avelar MD
--- NOTE | 2017-12-07 14:35 | CP.PCM.PN ---
<Rai Adams - Last Filed: 12/07/17 14:31> Subjective - Date & Time of Evaluation Date of Evaluation: 12/07/17 Time of Evaluation: 08:50 - Subjective Subjective: Patient seen and examined at bedside. Patient remains sedated on precedex. Patient's friend also present at bedside. Explained to friend why patient is sedated and unable to respond to him currently. Patient not as diaphoretic as previously. ROS unobtainable as patient is sedated. Objective - Vital Signs/Intake and Output Vital Signs (last 24 hours): Temp Pulse Resp BP Pulse Ox 99 F 74 30 H 146/80 100 12/07/17 04:00 12/07/17 09:38 12/07/17 07:41 12/07/17 09:38 12/07/17 08:00 Intake and Output: 12/07/17 12/07/17 06:59 18:59 Intake Total 3310 200 Output Total 400 Balance 2910 200 - Medications Medications: Current Medications Acetaminophen (Tylenol 650 Mg Supp) 650 mg RC Q6H PRN PRN Reason: Fever >100.4 F Ascorbic Acid (Vitamin C 500 Mg Tab) 500 mg PO DAILY [facility] Last Admin: 12/07/17 09:37 Dose: 500 mg Bacitracin (Bacitracin) 1 ea TOP Q6 PRN PRN Reason: Swelling Last Admin: 11/28/17 09:34 Dose: 1 ea Cyproheptadine HCl (Periactin) 4 mg PO Q8H [facility] Last Admin: 12/07/17 13:23 Dose: 4 mg Docusate Sodium (Colace Liquid) 100 mg PO BID [facility] Last Admin: 12/07/17 09:38 Dose: 100 mg Folic Acid (Folic Acid) 1 mg PO DAILY [facility] Last Admin: 12/07/17 09:38 Dose: 1 mg Heparin Sodium (Porcine) (Heparin) 5,000 units SC Q8 [facility] PRN Reason: Protocol Last Admin: 12/07/17 13:23 Dose: 5,000 units Hydralazine HCl (Apresoline) 10 mg IVP Q6 PRN PRN Reason: give if SBP >160 Last Admin: 12/02/17 12:56 Dose: 10 mg Dexmedetomidine HCl (Precedex 4 Mcg/Ml (100 Ml)) 400 mcg in 100 mls @ 3.629 mls /hr IV .Q24H PRN; Protocol; 0.2 MCG/KG/HR PRN Reason: Agitation Last Admin: 12/07/17 11:58 Dose: 1.5 mcg/kg/hr, 27.216 mls/hr Lactated Ringer's (Lactated Ringer's) 1,000 mls @ 150 mls/hr IV .Q6H40M [facility] Last Admin: 12/07/17 02:40 Dose: 150 mls/hr Meropenem 500 mg/ Sodium (Chloride) 100 mls @ 100 mls/hr IVPB Q8 [facility]IV PRN Reason: Protocol Last Admin: 12/07/17 13:22 Dose: 100 mls/hr Vancomycin HCl 1.5 gm/ Sodium (Chloride) 500 mls @ 333.333 mls/hr IVPB Q12H [facility] PRN Reason: Protocol Last Admin: 12/07/17 05:54 Dose: 333.333 mls/hr Insulin Human Lispro (Humalog Low) 0 units SC Q6H [facility] PRN Reason: Protocol Last Admin: 12/07/17 09:29 Dose: Not Given Levalbuterol HCl (Xopenex) 0.63 mg IH [id number] PRN PRN Reason: Shortness of Breath Last Admin: 12/07/17 13:15 Dose: 0.63 mg Levetiracetam (Keppra) 750 mg PO Q12 [facility] Last Admin: 12/07/17 09:38 Dose: 750 mg Lorazepam (Ativan) 4 mg IVP Q8H PRN PRN Reason: Agitation Last Admin: 12/07/17 03:20 Dose: 4 mg Lorazepam (Ativan) 4 mg IVP Q4 PRN; Protocol PRN Reason: Agitation Last Admin: 12/07/17 13:23 Dose: 4 mg Multivitamins/Minerals (Therapeutic-M Tab) 1 tab PO 0800 [facility] Last Admin: 12/07/17 08:02 Dose: 1 tab Pantoprazole Sodium (Protonix Inj) 40 mg IVP DAILY [facility] Last Admin: 12/07/17 09:38 Dose: 40 mg Polyethylene Glycol (Miralax) 17 gm PO BID [facility] Last Admin: 12/07/17 09:38 Dose: 17 gm Propranolol HCl (Inderal) 40 mg PO BID [facility] Last Admin: 12/07/17 09:38 Dose: 40 mg Thiamine HCl (Vitamin B1 Tab) 100 mg PO TID [facility] Last Admin: 12/07/17 09:37 Dose: 100 mg Tobramycin Sulfate (Tobramycin Inj) 0.08 gm IH [id number] [facility] Last Admin: 12/07/17 08:00 Dose: 0.08 gm Valproate Sodium (Depakene Cap) 250 mg PO Q12 [facility] Last Admin: 12/07/17 09:37 Dose: 250 mg Zinc Sulfate (Zinc Sulfate 220 Mg Cap) 220 mg PO DAILY [facility] Last Admin: 12/07/17 09:38 Dose: 220 mg - Labs Labs: 12/07/17 10:00 12/07/17 06:50 PT 16.6 SECONDS (9.4-12.5) H 12/06/17 06:00 INR 1.43 (0.93-1.08) H 12/06/17 06:00 - Constitutional Appears: Non-toxic, In Acute Distress - Head Exam Head Exam: ATRAUMATIC, NORMAL INSPECTION, NORMOCEPHALIC - ENT Exam ENT Exam: Mucous Membranes Dry - Neck Exam Neck Exam: Normal Inspection - Respiratory Exam Respiratory Exam: Clear to Ausculation Bilateral, NORMAL BREATHING PATTERN - Cardiovascular Exam Cardiovascular Exam: REGULAR RHYTHM, +S1, +S2 - GI/Abdominal Exam GI & Abdominal Exam: Soft, Normal Bowel Sounds - Extremities Exam Extremities Exam: absent: Pedal Edema - Neurological Exam Neurological Exam: absent: Alert, Awake, Oriented x3 Additional comments: sedated on precedex - Psychiatric Exam Psychiatric exam: Normal Affect, Normal Mood - Skin Skin Exam: Intact, Normal Color, Warm Assessment and Plan - Assessment and Plan (Free Text) Assessment: 62 year old male with PMHx of Bipolar disorder and ETOH abuse in ICU for DTs. Patient initially admitted to psych for suicidal ideation then transferred to in -patient due to severe ETOH withdrawal with DTs requiring high-dose sedation and intubation. Subclinical seizure noted on EEG performed on 11/30/17. Fevers likely due to DTs versus developing RLL consolidation and pleural effusion seen on CXR. Plan: ETOH withdrawal with Delirium Tremens - Intubated and sedated currently on precedex - Neuro consulted- recs appreciated - Continue CIWA protocol, seizure precaution, aspiration precaution - Ativan 4 mg IV prn agitation - Head CT negative for acute pathology - EEG with subclinical seizure seen; neurology recommends repeat EEG - IV Keppra on board for seizures - MRI brain showed persistent bilateral maxially, ethomoid and sphoenoid sinusitis with mastoid effusions Altered Mental Status, currently being sedated for DT's - CT head was unremarkable - thiamine increased to protect against encephalopathy - EEG with subclinical seizure seen; neurology recommends repeat EEG Right lower lobe consolidations secondary to HCAP - Seen on CXR and worsening, with pleural effusion as well - Possible pneumonia with pleural effusion versus atelectasis - Empirically treated with Merrem. Zyvox switched to vanc Sinusitis - seen on MRI - Continue to treat with Inhaled Tobramycin Blisters on hands - Multivitamin, vit C and Zinc added - Bacitracin ointment to be applied Rhabdomyolysis - likely secondary to DT's - renal function has not been affected - Continue hydration - CPK markedly elevated - will monitor Fever, suspected due to pneumonia - Possibly secondary to ETOH withdrawals - ID consult, appreciate recs - Currently afebrile - Follow up septic workup - negative Lower Extremity ultrasound - no vegetations seen on echo -Remeron as a cause of possible serotonin syndrome; cyproheptadine and propranolol started Electrolyte imbalance - monitor and replete as needed Transaminitis Due to chronic alcohol abuse, will discuss alcohol cessation with patient once no longer sedated. Prophylaxis - SCDs - Aspiration precautions - Seizure precautions - Heparin SC - Protonix Disposition: Remains intubated for now. MRI shows sinusitis, so inhaled Tobramycin was started. Developing RLL consolidation seen. Possible pneumonia with effusion versus atelectasis. Treating for pneumonia as likely source of fever. Continue to attempt weaning off of ventilation support. Discussed and seen with hospitalist Dr. Samantha Tabor <Samantha Tabor - Last Filed: 12/07/17 15:19> Objective - Vital Signs/Intake and Output Vital Signs (last 24 hours): Temp Pulse Resp BP Pulse Ox 99 F 74 30 H 146/80 100 12/07/17 04:00 12/07/17 09:38 12/07/17 07:41 12/07/17 09:38 12/07/17 08:00 Intake and Output: 12/07/17 12/07/17 06:59 18:59 Intake Total 3310 200 Output Total 400 Balance 2910 200 - Medications Medications: Current Medications Acetaminophen (Tylenol 650 Mg Supp) 650 mg RC Q6H PRN PRN Reason: Fever >100.4 F Ascorbic Acid (Vitamin C 500 Mg Tab) 500 mg PO DAILY [facility] Last Admin: 12/07/17 09:37 Dose: 500 mg Bacitracin (Bacitracin) 1 ea TOP Q6 PRN PRN Reason: Swelling Last Admin: 11/28/17 09:34 Dose: 1 ea Cyproheptadine HCl (Periactin) 4 mg PO Q8H [facility] Last Admin: 12/07/17 13:23 Dose: 4 mg Docusate Sodium (Colace Liquid) 100 mg PO BID [facility] Last Admin: 12/07/17 09:38 Dose: 100 mg Folic Acid (Folic Acid) 1 mg PO DAILY [facility] Last Admin: 12/07/17 09:38 Dose: 1 mg Heparin Sodium (Porcine) (Heparin) 5,000 units SC Q8 [facility] PRN Reason: Protocol Last Admin: 12/07/17 13:23 Dose: 5,000 units Hydralazine HCl (Apresoline) 10 mg IVP Q6 PRN PRN Reason: give if SBP >160 Last Admin: 12/02/17 12:56 Dose: 10 mg Dexmedetomidine HCl (Precedex 4 Mcg/Ml (100 Ml)) 400 mcg in 100 mls @ 3.629 mls /hr IV .Q24H PRN; Protocol; 0.2 MCG/KG/HR PRN Reason: Agitation Last Admin: 12/07/17 11:58 Dose: 1.5 mcg/kg/hr, 27.216 mls/hr Lactated Ringer's (Lactated Ringer's) 1,000 mls @ 150 mls/hr IV .Q6H40M [facility] Last Admin: 12/07/17 02:40 Dose: 150 mls/hr Meropenem 500 mg/ Sodium (Chloride) 100 mls @ 100 mls/hr IVPB Q8 [facility] PRN Reason: Protocol Last Admin: 12/07/17 13:22 Dose: 100 mls/hr Vancomycin HCl 1.5 gm/ Sodium (Chloride) 500 mls @ 333.333 mls/hr IVPB Q12H [facility] PRN Reason: Protocol Last Admin: 12/07/17 05:54 Dose: 333.333 mls/hr Insulin Human Lispro (Humalog Low) 0 units SC Q6H [facility] PRN Reason: Protocol Last Admin: 12/07/17 09:29 Dose: Not Given Levalbuterol HCl (Xopenex) 0.63 mg IH [id number] PRN PRN Reason: Shortness of Breath Last Admin: 12/07/17 13:15 Dose: 0.63 mg Levetiracetam (Keppra) 750 mg PO Q12 [facility] Last Admin: 12/07/17 09:38 Dose: 750 mg Lorazepam (Ativan) 4 mg IVP Q8H PRN PRN Reason: Agitation Last Admin: 12/07/17 03:20 Dose: 4 mg Lorazepam (Ativan) 4 mg IVP Q4 PRN; Protocol PRN Reason: Agitation Last Admin: 12/07/17 13:23 Dose: 4 mg Multivitamins/Minerals (Therapeutic-M Tab) 1 tab PO 0800 [facility] Last Admin: 12/07/17 08:02 Dose: 1 tab Pantoprazole Sodium (Protonix Inj) 40 mg IVP DAILY [facility] Last Admin: 12/07/17 09:38 Dose: 40 mg Polyethylene Glycol (Miralax) 17 gm PO BID [facility] Last Admin: 12/07/17 09:38 Dose: 17 gm Propranolol HCl (Inderal) 40 mg PO BID [facility] Last Admin: 12/07/17 09:38 Dose: 40 mg Thiamine HCl (Vitamin B1 Tab) 100 mg PO TID [facility] Last Admin: 12/07/17 09:37 Dose: 100 mg Tobramycin Sulfate (Tobramycin Inj) 0.08 gm IH [id number] [facility] Last Admin: 12/07/17 08:00 Dose: 0.08 gm Valproate Sodium (Depakene Cap) 250 mg PO Q12 [facility] Last Admin: 12/07/17 09:37 Dose: 250 mg Zinc Sulfate (Zinc Sulfate 220 Mg Cap) 220 mg PO DAILY [facility] Last Admin: 12/07/17 09:38 Dose: 220 mg - Labs Labs: 12/07/17 10:00 12/07/17 06:50 PT 16.6 SECONDS (9.4-12.5) H 12/06/17 06:00 INR 1.43 (0.93-1.08) H 12/06/17 06:00 Attending/Attestation - Attestation I have personally seen and examined this patient.: Yes I have fully participated in the care of the patient.: Yes I have reviewed all pertinent clinical information, including history, physical exam and plan: Yes Notes (Text): I have seen and examined the patient at bedside. Agree with the above note with the following additions/ exceptions: Briefly this is 62 year old male with history of bipolar disorder and chronic alcohol abuse who was admitted for alcohol withdrawal. Patient is manifesting severe alcohol withdrawal and delerium Tremens. He is diaphoretic however does appear calm, sedated and normotensive. HR is stable as well. Patient remains on precedex. He has been afebrile since yesterday. CXR reveals RLL consolidation. LE duplex negative for DVT. MRI brain showed sinusitis. Cultures and procal negative. Patient is on Meropenem, vancomycin and tobramycin. UDS negative. Echo did not reveal any vegetation. CK elevated. Continue IVF. Patient is intubated and sedated. Weaning trial per ICU team. CT head was negative. Will continue Ativan. EEG revealed subclinical seizure on keppra. Plan to repeat EEG. He was on remeron previously so there was a concern of possible serotonin syndrome therefore cyproheptadine was started. Transaminitis is improving. Upon discharge patient will follow up in [facility]. Dr Samantha Tabor
--- NOTE | 2017-12-07 18:19 | CP.PCM.PN ---
Subjective - Date & Time of Evaluation Date of Evaluation: 12/07/17 Time of Evaluation: 17:00 - Subjective Subjective: Infectious Disease Follow Up: December 07, 2017 62 yo male with medical history that includes Bipolar disorder and alcohol abuse presented with EtOH intoxication and now in withdrawals. Originally in the psych floor for bipolar disease treatment and suicidal ideation on 11/21/2017. The patient required intubation. ID called for possible aspiration pneumonia. No fevers, leukocytosis at this time. Remains intubated. Still no fevers or leukocytosis. Remains sedated. Noted blistered skin on right hand that slightly improved. Persistent fevers up to 102.0 F in the past 24 hours but appears to be downtrending. Still no leukocytosis. Cultures from 11/30/2017 negative. New cultures sent 12/01-. Multiple blisters on the right hand. Fluid filler and dark in color. Patient highly agitated on attempts to wean sedation. Would obtain fluid from blisters for culture. Would consider CT of chest/ abdomen/pelvis. Continue on meropenem for antibiotic coverage at this point. Also on inhaled tobramycin and IV Zyvox. No new issues. Difficult extubation. Patient severely agitated when taken off sedation. Currently afebrile but still with diaphoresis. The patient an episode of temperature as low as 93.2 F yesterday morning but no further episodes since. Objective - Vital Signs/Intake and Output Vital Signs (last 24 hours): Temp Pulse Resp BP Pulse Ox 99.6 F 77 30 H 141/87 99 12/07/17 16:00 12/07/17 16:00 12/07/17 07:41 12/07/17 16:00 12/07/17 16:00 Intake and Output: 12/07/17 12/07/17 06:59 18:59 Intake Total 3310 300 Output Total 400 Balance 2910 300 - Medications Medications: Current Medications Acetaminophen (Tylenol 650 Mg Supp) 650 mg RC Q6H PRN PRN Reason: Fever >100.4 F Ascorbic Acid (Vitamin C 500 Mg Tab) 500 mg PO DAILY [facility] Last Admin: 12/07/17 09:37 Dose: 500 mg Bacitracin (Bacitracin) 1 ea TOP Q6 PRN PRN Reason: Swelling Last Admin: 11/28/17 09:34 Dose: 1 ea Cyproheptadine HCl (Periactin) 4 mg PO Q8H [facility] Last Admin: 12/07/17 13:23 Dose: 4 mg Docusate Sodium (Colace Liquid) 100 mg PO BID [facility] Last Admin: 12/07/17 17:43 Dose: 100 mg Folic Acid (Folic Acid) 1 mg PO DAILY [facility] Last Admin: 12/07/17 09:38 Dose: 1 mg Heparin Sodium (Porcine) (Heparin) 5,000 units SC Q8 [facility] PRN Reason: Protocol Last Admin: 12/07/17 13:23 Dose: 5,000 units Hydralazine HCl (Apresoline) 10 mg IVP Q6 PRN PRN Reason: give if SBP >160 Last Admin: 12/02/17 12:56 Dose: 10 mg Dexmedetomidine HCl (Precedex 4 Mcg/Ml (100 Ml)) 400 mcg in 100 mls @ 3.629 mls /hr IV .Q24H PRN; Protocol; 0.2 MCG/KG/HR PRN Reason: Agitation Last Admin: 12/07/17 15:31 Dose: 1.5 mcg/kg/hr, 27.216 mls/hr Lactated Ringer's (Lactated Ringer's) 1,000 mls @ 150 mls/hr IV .Q6H40M [facility] Last Admin: 12/07/17 02:40 Dose: 150 mls/hr Meropenem 500 mg/ Sodium (Chloride) 100 mls @ 100 mls/hr IVPB Q8 [facility] PRN Reason: Protocol Last Admin: 12/07/17 13:22 Dose: 100 mls/hr Vancomycin HCl 1.5 gm/ Sodium (Chloride) 500 mls @ 333.333 mls/hr IVPB Q12H [facility] PRN Reason: Protocol Last Admin: 12/07/17 18:06 Dose: 333.333 mls/hr Insulin Human Lispro (Humalog Low) 0 units SC Q6H [facility] PRN Reason: Protocol Last Admin: 12/07/17 17:39 Dose: Not Given Levalbuterol HCl (Xopenex) 0.63 mg IH [id number] PRN PRN Reason: Shortness of Breath Last Admin: 12/07/17 13:15 Dose: 0.63 mg Levetiracetam (Keppra) 750 mg PO Q12 [facility] Last Admin: 12/07/17 09:38 Dose: 750 mg Lorazepam (Ativan) 4 mg IVP Q8H PRN PRN Reason: Agitation Last Admin: 12/07/17 03:20 Dose: 4 mg Lorazepam (Ativan) 4 mg IVP Q4 PRN; Protocol PRN Reason: Agitation Last Admin: 12/07/17 13:23 Dose: 4 mg Multivitamins/Minerals (Therapeutic-M Tab) 1 tab PO 0800 [facility] Last Admin: 12/07/17 08:02 Dose: 1 tab Pantoprazole Sodium (Protonix Inj) 40 mg IVP DAILY [facility] Last Admin: 12/07/17 09:38 Dose: 40 mg Polyethylene Glycol (Miralax) 17 gm PO BID [facility] Last Admin: 12/07/17 17:43 Dose: 17 gm Propranolol HCl (Inderal) 40 mg PO BID [facility] Last Admin: 12/07/17 09:38 Dose: 40 mg Thiamine HCl (Vitamin B1 Tab) 100 mg PO TID [facility] Last Admin: 12/07/17 17:43 Dose: 100 mg Tobramycin Sulfate (Tobramycin Inj) 0.08 gm IH [id number] [facility] Last Admin: 12/07/17 08:00 Dose: 0.08 gm Valproate Sodium (Depakene Cap) 250 mg PO Q12 [facility] Last Admin: 12/07/17 09:37 Dose: 250 mg Zinc Sulfate (Zinc Sulfate 220 Mg Cap) 220 mg PO DAILY [facility] Last Admin: 12/07/17 09:38 Dose: 220 mg - Labs Labs: 12/07/17 10:00 12/07/17 06:50 PT 16.6 SECONDS (9.4-12.5) H 12/06/17 06:00 INR 1.43 (0.93-1.08) H 12/06/17 06:00 - Constitutional Appears: Non-toxic, No Acute Distress, Chronically Ill - Head Exam Additional comments: intubated and ventilated. - Eye Exam Eye Exam: EOMI, PERRL Pupil Exam: NORMAL ACCOMODATION, PERRL - ENT Exam ENT Exam: Mucous Membranes Moist, Normal External Ear Exam, TM's Normal Bilaterally - Neck Exam Neck Exam: Full ROM, Normal Inspection - Respiratory Exam Respiratory Exam: Clear to Ausculation Bilateral, NORMAL BREATHING PATTERN. absent: Rales, Rhonchi, Wheezes - Cardiovascular Exam Cardiovascular Exam: REGULAR RHYTHM, RRR, +S1, +S2 - GI/Abdominal Exam GI & Abdominal Exam: Soft, Normal Bowel Sounds. absent: Distended, Tenderness - Extremities Exam Extremities Exam: Full ROM, Joint Swelling, Pedal Edema - Neurological Exam Neurological Exam: Altered Additional comments: intubated and ventilated... poorly responsive. - Skin Skin Exam: Intact, Normal Color Assessment and Plan - Assessment and Plan (Free Text) Assessment: 62 yo male with EtOH abuse. Developed EtOH withdrawal and now required intubation and ventilation. The patient was being evaluated by ID for potential aspiration. The patient is currently on Cefepime and Vancomycin. If aspiration is a significant concern, would either add Flagyl IV or switch Cefepime to Meropenem or Zosyn. Febrile several days ago up to 102 F. Afebrile the last few days. No leukocytosis. No findings on Chest X-ray. Supportive care. Procalcitonin is 0.14 which is low. Noted procalcitonin repeated multiple times and all showing low values. Suggests strongly against bacterial causes but does not rule out viral. More likely secondary to the EtOH withdrawal and Delirium Tremens. Case discussed with team. Off antibiotics now. Will Monitor. Difficult extubation/wean from ventilation. Agitation when off sedation. Afebrile today but one temperature value showed hypothermia. Repeat cultures with next fever. Check urinalysis and urine culture. 11/30/2017 cultures negative so far. 12/01/2017 cultures pending. Fever downtrending. Chest X-ray suggesting HCAP. Antibiotics continues on Zyvox and Meropenem. For now the patient has remained afebrile but appears to have an uprising trend again. Supportive care. Thank you for allowing me to participate in the care of the patient, we will follow with you.
[2017-12-08] MEDS: Lactated Ringer's 1,000 ML IV SCH ×3 (01:00→10:17)
[2017-12-08] MEDS: Dexmedetomidine 400mcg/100mL 400 MCG/100 ML BOTTLE IV PRN ×6 (03:00→23:05)
[2017-12-08] MEDS: Insulin Lispro (humaLOG) LOW Coverage SC SCH ×4 (03:13→22:05)
[2017-12-08] MEDS: Vancomycin 1.5 GM in Sodium Chloride 0.9% 500 ML IVPB SCH (05:13)
[2017-12-08] MEDS: Meropenem 500 MG in Sodium Chloride 0.9% 100 ML IVPB SCH ×3 (05:14→22:18)
[2017-12-08 07:00] LABS: ARTERIAL BLOOD GAS HCO3 23.6 mmol/L (21-28); ARTERIAL BLOOD GAS HEMOGLOBIN 8.7 g/dL (11.7-17.4); ARTERIAL BLOOD GAS O2 CONTENT 11.9 ML/dl (15-23); ARTERIAL BLOOD GAS O2 SAT 99.3 % (95-98); ARTERIAL BLOOD GAS PCO2 34 mm/Hg (35-45); ARTERIAL BLOOD GAS PH 7.45 (7.35-7.45); ARTERIAL BLOOD GAS TCO2 24.6 mmol.L (22-28)
[2017-12-08 07:30] LABS: BASO # 0.01 K/mm3 (0.0-2.0); BASO % 0.2 % (0.0-3.0); EOS # 0.1 (0.0-0.7); EOS % 2.7 % (1.5-5.0); GRAN # 3.72 (1.4-6.5); GRAN % 76.7 % (50.0-68.0); HEMOGLOBIN 9.2 g/dL (14.0-18.0); LYMPH # 0.6 (1.2-3.4); LYMPH % 12.2 % (22.0-35.0); MEAN CELL VOLUME 91.8 fl (80.0-105.0); MEAN CORPUSCULAR HEMOGLOBIN 30.1 pg (25.0-35.0); MEAN CORPUSCULAR HGB CONC 32.7 g/dl (31.0-37.0); MONO # 0.4 (0.1-0.6); MONO % 8.2 % (1.0-6.0); RBC 3.06 10^6/uL (3.5-6.1); RED CELL DISTRIBUTION WIDTH 14.1 % (11.5-14.5); WHITE BLOOD COUNT 4.9 10^3/ul (4.5-11.0)
[2017-12-08 08:10] LABS: ALBUMIN 2.2 g/dL (3.0-4.8); ALT/SGPT 74 U/L (7-56); AST/SGOT 42 U/L (17-59); BLOOD UREA NITROGEN 8 mg/dL (7-21); GFR AFRICAN-AMERICAN > 60; GFR NON-AFRICAN AMERICAN > 60
[2017-12-08] MEDS ORDERED: Potassium Chloride 40 mEq/30 ml LIQ UD PO ONE (08:15)
--- NOTE | 2017-12-08 08:31 | CP.CCUPN ---
<Singh Traore - Last Filed: 12/08/17 10:43> CCU Subjective - Physician Review Subjective (Free Text): Singh Traore PGY1 ICU Note for Dr. Kong Patient was seen and examined in ICU. The patient remains unarousable, and becomes restless off sedation. His tremor have improved but are still present. ROS could not be obtained. CCU Objective - Vital Signs / Intake & Output Vital Signs (Last 4 hours): Vital Signs Pulse BP Pulse Ox 12/08/17 07:00 59 L 115/62 100 12/08/17 06:00 59 L 117/58 L 12/08/17 05:59 59 L 99 12/08/17 05:00 62 122/80 98 Intake and Output (Last 8hrs): Intake & Output 12/07/17 12/08/17 12/08/17 22:59 06:59 14:59 Intake Total 3400 4510 Output Total 675 1000 Balance 2725 3510 Weight 196 lb 4.8 oz Intake: IV 2600 2850 Left Internal Jugular 2100 2200 precedex 300 350 Oral 100 Tube Feeding 700 760 Other 900 Output: Urine 675 1000 Urethral (Mackenzie) 675 1000 Other: # Bowel Movements 300 0 - Physical Exam Physical Exam Limitations: Positive for: Altered Mental Status Head: Positive for: Atraumatic, Normocephalic Pupils: Positive for: PERRL, Sluggish Extroacular Muscles: Positive for: EOMI Conjunctiva: Positive for: Normal. Negative for: Injected Ears: Positive for: Normal Mouth: Positive for: Normal Teeth, Other (dry oral mucosa, ET/OG tube in place) Pharnyx: Positive for: Normal Nose (External): Positive for: Atraumatic Nose (Internal): Positive for: Normal Inspection Neck: Negative for: JVD Respiratory/Chest: Positive for: Clear to Auscultation, Good Air Exchange, Other (intubated on vent). Negative for: Respiratory Distress, Accessory Muscle Use, Wheezes, Rales, Retracting, Rhonchi, Tachypneic Cardiovascular: Positive for: Normal S1, S2, Tachycardic. Negative for: Murmurs Abdomen: Positive for: Normal Bowel Sounds. Negative for: Tenderness, Distention, Peritoneal Signs, Rebound, Guarding Genitourinary Male: Positive for: Other (mackenzie catheter in place ) Back: Positive for: Normal Inspection. Negative for: Midline Tenderness Upper Extremity: Positive for: Normal Inspection, NORMAL PULSES, Other (resting right arm tremor, rigidity noted). Negative for: Cyanosis, Edema Lower Extremity: Positive for: Normal Inspection, NORMAL PULSES. Negative for: Edema Neurological: Positive for: Other (sedated ). Negative for: GCS=15 Skin: Positive for: Warm, Normal Color, Diaphoretic Psychiatric: Positive for: Other (sedated). Negative for: Alert, Oriented x 3, Normal Insight, Normal Concentration - Medications Active Medications: Active Medications Generic Name Dose Route Start Last Admin Trade Name Freq PRN Reason Stop Dose Admin Acetaminophen 650 mg 12/05/17 12:27 Tylenol 650 Mg Supp RC Q6H PRN Fever >100.4 F Ascorbic Acid 500 mg 11/28/17 11:30 12/07/17 09:37 Vitamin C 500 Mg Tab PO 500 mg DAILY SHIV Administration Bacitracin 1 ea 11/28/17 08:51 11/28/17 09:34 Bacitracin TOP 1 ea Q6 PRN Administration Swelling Cyproheptadine HCl 4 mg 12/05/17 11:15 12/08/17 03:45 Periactin PO 4 mg Q8H SHIV Administration Docusate Sodium 100 mg 12/05/17 18:00 12/07/17 17:43 Colace Liquid PO 100 mg BID SHIV Administration Folic Acid 1 mg 12/01/17 10:15 12/07/17 09:38 Folic Acid PO 1 mg DAILY SHIV Administration Heparin Sodium (Porcine) 5,000 units 12/03/17 08:15 12/08/17 05:30 Heparin SC 5,000 units Q8 SHIV Administration Protocol Hydralazine HCl 10 mg 11/29/17 14:56 12/02/17 12:56 Apresoline IVP 10 mg Q6 PRN Administration give if SBP >160 Dexmedetomidine HCl 400 mcg in 100 mls @ 3.629 mls/hr 11/26/17 09:21 06:45 Precedex 4 Mcg/Ml (100 Ml) IV 1.5 mcg/kg/hr .Q24H PRN 27.216 mls/hr Agitation Administration Protocol 0.2 MCG/KG/HR Lactated Ringer's 1,000 mls @ 150 mls/hr 12/03/17 11:30 12/08/17 08:21 Lactated Ringer's IV 150 mls/hr .Q6H40M SHIV Administration Meropenem 500 mg/ Sodium 100 mls @ 100 mls/hr 12/04/17 22:00 12/08/17 05:14 Chloride IVPB 100 mls/hr Q8 SHIV Administration Protocol Vancomycin HCl 1.5 gm/ Sodium 500 mls @ 333.333 mls/hr 12/05/17 17:45 05:13 Chloride IVPB 333.333 mls/hr Q12H SHIV Administration Protocol Insulin Human Lispro 0 units 11/26/17 09:00 12/08/17 03:13 Humalog Low SC Not Given Q6H SHIV Protocol Levalbuterol HCl 0.63 mg 12/02/17 09:55 12/07/17 13:15 Xopenex IH 0.63 mg [id number] PRN Administration Shortness of Breath Levetiracetam 750 mg 12/04/17 22:00 12/07/17 21:20 Keppra PO 750 mg Q12 SHIV Administration Lorazepam 4 mg 12/05/17 16:02 12/08/17 02:25 Ativan IVP 4 mg Q8H PRN Administration Agitation Lorazepam 4 mg 12/05/17 19:35 12/07/17 18:11 Ativan IVP 4 mg Q4 PRN Administration Agitation Protocol Multivitamins/Minerals 1 tab 11/29/17 08:00 12/07/17 08:02 Therapeutic-M Tab PO 1 tab 0800 SHIV Administration Pantoprazole Sodium 40 mg 11/22/17 10:00 12/07/17 09:38 Protonix Inj IVP 40 mg DAILY SHIV Administration Polyethylene Glycol 17 gm 12/05/17 18:00 12/07/17 17:43 Miralax PO 17 gm BID SHIV Administration Propranolol HCl 40 mg 12/05/17 11:00 12/07/17 18:51 Inderal PO 40 mg BID SHIV Administration Thiamine HCl 100 mg 11/28/17 14:00 12/07/17 17:43 Vitamin B1 Tab PO 100 mg TID SHIV Administration Tobramycin Sulfate 0.08 gm 12/05/17 11:00 12/07/17 08:00 Tobramycin Inj IH 0.08 gm [id number] SHIV Administration Valproate Sodium 250 mg 12/05/17 22:00 12/07/17 21:24 Depakene Cap PO 250 mg Q12 SHIV Administration Zinc Sulfate 220 mg 11/28/17 11:30 12/07/17 09:38 Zinc Sulfate 220 Mg Cap PO 220 mg DAILY SHIV Administration - Patient Studies Lab Studies: Microbiology Studies 12/02/17 03:30 Blood Culture - Final Blood-Venous NO GROWTH AFTER 5 DAYS Gram Stain - Final TEST NOT PERFORMED 12/02/17 03:00 Blood Culture - Final Blood-Venous NO GROWTH AFTER 5 DAYS Gram Stain - Final TEST NOT PERFORMED Lab Studies 12/08/17 12/08/17 12/08/17 Range/Units 06:30 06:30 06:30 WBC 4.9 (4.5-11.0) 10^3/ul RBC 3.06 L (3.5-6.1) 10^6/uL Hgb 9.2 L (14.0-18.0) g/dL Hct 28.1 L (42.0-52.0) % MCV 91.8 (80.0-105.0) fl MCH 30.1 (25.0-35.0) pg MCHC 32.7 (31.0-37.0) g/dl RDW 14.1 (11.5-14.5) % Plt Count 287 (120.0-450.0) 10^3/uL MPV 11.0 (7.0-11.0) fl Gran % 76.7 H (50.0-68.0) % Lymph % (Auto) 12.2 L (22.0-35.0) % [place] % (Auto) 8.2 H (1.0-6.0) % Eos % (Auto) 2.7 (1.5-5.0) % Baso % (Auto) 0.2 (0.0-3.0) % Gran # 3.72 (1.4-6.5) Lymph # (Auto) 0.6 L (1.2-3.4) [place] # (Auto) 0.4 (0.1-0.6) Eos # (Auto) 0.1 (0.0-0.7) Baso # (Auto) 0.01 (0.0-2.0) K/mm3 pCO2 34 L (35-45) mm/Hg pO2 83.0 (80-100) mm/Hg HCO3 23.6 (21-28) mmol/L ABG pH 7.45 (7.35-7.45) ABG Total CO2 24.6 (22-28) mmol.L ABG O2 Saturation 99.3 H (95-98) % ABG O2 Content 11.9 L (15-23) ML/dl ABG Base Excess -0.2 (-2.0-3.0) mmol/L ABG Hemoglobin 8.7 L (11.7-17.4) g/dL ABG Carboxyhemoglobin 1.8 H (0.5-1.5) % POC ABG HHb (Measured) 0.7 (0-5) % ABG Methemoglobin 1.1 (0.0-3.0) % ABG O2 Capacity 12.0 L (16-24) mL/dl Hgb O2 Saturation 96.4 (95.0-98.0) % FiO2 50.0 % Sodium 144 (132-148) mmol/L Potassium 3.4 L (3.6-5.0) mmol/L Chloride 110 H (98-107) mmol/L Carbon Dioxide 27 (21-33) mmol/L Anion Gap 10 (10-20) BUN 8 (7-21) mg/dL Creatinine 0.6 L (0.8-1.5) mg/dl Est GFR ( Amer) > 60 Est GFR (Non-Af Amer) > 60 POC Glucose (mg/dL) (65-110) mg/dL Random Glucose 120 H (70-110) mg/dL Calcium 8.0 L (8.4-10.5) mg/dL Magnesium 2.0 (1.7-2.2) mg/dL Total Bilirubin 0.2 (0.2-1.3) mg/dL AST 42 (17-59) U/L ALT 74 H (7-56) U/L Alkaline Phosphatase 55 (38-126) U/L Total Creatine Kinase 57 (35-230) U/L Total Protein 4.5 L (5.8-8.3) g/dL Albumin 2.2 L (3.0-4.8) g/dL Globulin 2.3 gm/dL Albumin/Globulin Ratio 1.0 L (1.1-1.8) 12/08/17 12/07/17 12/07/17 Range/Units 03:12 20:59 14:49 WBC (4.5-11.0) 10^3/ul RBC (3.5-6.1) 10^6/uL Hgb (14.0-18.0) g/dL Hct (42.0-52.0) % MCV (80.0-105.0) fl MCH (25.0-35.0) pg MCHC (31.0-37.0) g/dl RDW (11.5-14.5) % Plt Count (120.0-450.0) 10^3/uL MPV (7.0-11.0) fl Gran % (50.0-68.0) % Lymph % (Auto) (22.0-35.0) % [place] % (Auto) (1.0-6.0) % Eos % (Auto) (1.5-5.0) % Baso % (Auto) (0.0-3.0) % Gran # (1.4-6.5) Lymph # (Auto) (1.2-3.4) [place] # (Auto) (0.1-0.6) Eos # (Auto) (0.0-0.7) Baso # (Auto) (0.0-2.0) K/mm3 pCO2 (35-45) mm/Hg pO2 (80-100) mm/Hg HCO3 (21-28) mmol/L ABG pH (7.35-7.45) ABG Total CO2 (22-28) mmol.L ABG O2 Saturation (95-98) % ABG O2 Content (15-23) ML/dl ABG Base Excess (-2.0-3.0) mmol/L ABG Hemoglobin (11.7-17.4) g/dL ABG Carboxyhemoglobin (0.5-1.5) % POC ABG HHb (Measured) (0-5) % ABG Methemoglobin (0.0-3.0) % ABG O2 Capacity (16-24) mL/dl Hgb O2 Saturation (95.0-98.0) % FiO2 % Sodium (132-148) mmol/L Potassium (3.6-5.0) mmol/L Chloride (98-107) mmol/L Carbon Dioxide (21-33) mmol/L Anion Gap (10-20) BUN (7-21) mg/dL Creatinine (0.8-1.5) mg/dl Est GFR ( Amer) Est GFR (Non-Af Amer) POC Glucose (mg/dL) 119 H 137 H 114 H (65-110) mg/dL Random Glucose (70-110) mg/dL Calcium (8.4-10.5) mg/dL Magnesium (1.7-2.2) mg/dL Total Bilirubin (0.2-1.3) mg/dL AST (17-59) U/L ALT (7-56) U/L Alkaline Phosphatase (38-126) U/L Total Creatine Kinase (35-230) U/L Total Protein (5.8-8.3) g/dL Albumin (3.0-4.8) g/dL Globulin gm/dL Albumin/Globulin Ratio (1.1-1.8) 12/07/17 12/07/17 12/07/17 Range/Units 10:00 08:49 06:30 WBC 6.1 D (4.5-11.0) 10^3/ul RBC 2.91 L (3.5-6.1) 10^6/uL Hgb 8.8 L (14.0-18.0) g/dL Hct 27.0 L (42.0-52.0) % MCV 92.8 (80.0-105.0) fl MCH 30.2 (25.0-35.0) pg MCHC 32.6 (31.0-37.0) g/dl RDW 14.0 (11.5-14.5) % Plt Count 311 (120.0-450.0) 10^3/uL MPV 10.9 (7.0-11.0) fl Gran % 78.4 H (50.0-68.0) % Lymph % (Auto) 10.4 L (22.0-35.0) % [place] % (Auto) 7.2 H (1.0-6.0) % Eos % (Auto) 3.8 (1.5-5.0) % Baso % (Auto) 0.2 (0.0-3.0) % Gran # 4.77 (1.4-6.5) Lymph # (Auto) 0.6 L (1.2-3.4) [place] # (Auto) 0.4 (0.1-0.6) Eos # (Auto) 0.2 (0.0-0.7) Baso # (Auto) 0.01 (0.0-2.0) K/mm3 pCO2 (35-45) mm/Hg pO2 (80-100) mm/Hg HCO3 (21-28) mmol/L ABG pH (7.35-7.45) ABG Total CO2 (22-28) mmol.L ABG O2 Saturation (95-98) % ABG O2 Content (15-23) ML/dl ABG Base Excess (-2.0-3.0) mmol/L ABG Hemoglobin (11.7-17.4) g/dL ABG Carboxyhemoglobin (0.5-1.5) % POC ABG HHb (Measured) (0-5) % ABG Methemoglobin (0.0-3.0) % ABG O2 Capacity (16-24) mL/dl Hgb O2 Saturation (95.0-98.0) % FiO2 % Sodium (132-148) mmol/L Potassium (3.6-5.0) mmol/L Chloride (98-107) mmol/L Carbon Dioxide (21-33) mmol/L Anion Gap (10-20) BUN (7-21) mg/dL Creatinine (0.8-1.5) mg/dl Est GFR ( Amer) Est GFR (Non-Af Amer) POC Glucose (mg/dL) 115 H (65-110) mg/dL Random Glucose (70-110) mg/dL Calcium (8.4-10.5) mg/dL Magnesium 2.0 (1.7-2.2) mg/dL Total Bilirubin (0.2-1.3) mg/dL AST (17-59) U/L ALT (7-56) U/L Alkaline Phosphatase (38-126) U/L Total Creatine Kinase (35-230) U/L Total Protein (5.8-8.3) g/dL Albumin (3.0-4.8) g/dL Globulin gm/dL Albumin/Globulin Ratio (1.1-1.8) Laboratory Results - last 24 hr 12/07/17 12/07/17 12/07/17 06:30 08:49 10:00 WBC 6.1 D RBC 2.91 L Hgb 8.8 L Hct 27.0 L MCV 92.8 MCH 30.2 MCHC 32.6 RDW 14.0 Plt Count 311 MPV 10.9 Gran % 78.4 H Lymph % (Auto) 10.4 L [place] % (Auto) 7.2 H Eos % (Auto) 3.8 Baso % (Auto) 0.2 Gran # 4.77 Lymph # (Auto) 0.6 L [place] # (Auto) 0.4 Eos # (Auto) 0.2 Baso # (Auto) 0.01 pCO2 pO2 HCO3 ABG pH ABG Total CO2 ABG O2 Saturation ABG O2 Content ABG Base Excess ABG Hemoglobin ABG Carboxyhemoglobin POC ABG HHb (Measured) ABG Methemoglobin ABG O2 Capacity Hgb O2 Saturation FiO2 Sodium Potassium Chloride Carbon Dioxide Anion Gap BUN Creatinine Est GFR ( Amer) Est GFR (Non-Af Amer) POC Glucose (mg/dL) 115 H Random Glucose Calcium Magnesium 2.0 Total Bilirubin AST ALT Alkaline Phosphatase Total Creatine Kinase Total Protein Albumin Globulin Albumin/Globulin Ratio 12/07/17 12/07/17 12/08/17 14:49 20:59 03:12 WBC RBC Hgb Hct MCV MCH MCHC RDW Plt Count MPV Gran % Lymph % (Auto) [place] % (Auto) Eos % (Auto) Baso % (Auto) Gran # Lymph # (Auto) [place] # (Auto) Eos # (Auto) Baso # (Auto) pCO2 pO2 HCO3 ABG pH ABG Total CO2 ABG O2 Saturation ABG O2 Content ABG Base Excess ABG Hemoglobin ABG Carboxyhemoglobin POC ABG HHb (Measured) ABG Methemoglobin ABG O2 Capacity Hgb O2 Saturation FiO2 Sodium Potassium Chloride Carbon Dioxide Anion Gap BUN Creatinine Est GFR ( Amer) Est GFR (Non-Af Amer) POC Glucose (mg/dL) 114 H 137 H 119 H Random Glucose Calcium Magnesium Total Bilirubin AST ALT Alkaline Phosphatase Total Creatine Kinase Total Protein Albumin Globulin Albumin/Globulin Ratio 12/08/17 12/08/17 12/08/17 06:30 06:30 06:30 WBC 4.9 RBC 3.06 L Hgb 9.2 L Hct 28.1 L MCV 91.8 MCH 30.1 MCHC 32.7 RDW 14.1 Plt Count 287 MPV 11.0 Gran % 76.7 H Lymph % (Auto) 12.2 L [place] % (Auto) 8.2 H Eos % (Auto) 2.7 Baso % (Auto) 0.2 Gran # 3.72 Lymph # (Auto) 0.6 L [place] # (Auto) 0.4 Eos # (Auto) 0.1 Baso # (Auto) 0.01 pCO2 34 L pO2 83.0 HCO3 23.6 ABG pH 7.45 ABG Total CO2 24.6 ABG O2 Saturation 99.3 H ABG O2 Content 11.9 L ABG Base Excess -0.2 ABG Hemoglobin 8.7 L ABG Carboxyhemoglobin 1.8 H POC ABG HHb (Measured) 0.7 ABG Methemoglobin 1.1 ABG O2 Capacity 12.0 L Hgb O2 Saturation 96.4 FiO2 50.0 Sodium 144 Potassium 3.4 L Chloride 110 H Carbon Dioxide 27 Anion Gap 10 BUN 8 Creatinine 0.6 L Est GFR ( Amer) > 60 Est GFR (Non-Af Amer) > 60 POC Glucose (mg/dL) Random Glucose 120 H Calcium 8.0 L Magnesium 2.0 Total Bilirubin 0.2 AST 42 ALT 74 H Alkaline Phosphatase 55 Total Creatine Kinase 57 Total Protein 4.5 L Albumin 2.2 L Globulin 2.3 Albumin/Globulin Ratio 1.0 L Fingerstick Blood Sugar Results: 119 Review of Systems - Review of Systems Systems not reviewed;Unavailable: Intubated Critical Care Progress Note - Ventilator Checklist Head of Bed 30 Degrees: Yes Daily Sedation Vacation: Yes Daily Assessment of Readiness to Wean: Yes Daily Spontaneous Breathing Trial: Yes PUD Prophalyxis: Yes DVT Prophylaxis: Yes Oral Care with Chlorhexidine Gluconate {CHG}: Yes - Vent Settings MODE:: PRVC - Extremities/Vascular Does the Patient have a Central Venous Catheter?: Yes Does the Patient need a Central Venous Catheter?: Yes Does the Patient have a Mackenzie Catheter?: Yes Does the Patient need a Mackenzie Catheter?: Yes - Restraints Justification for Restraints: High risk for self extubation, High risk for removing IV access, High risk for harming self - Prophylaxis GI Prophylaxis GI: PPI - Prophylaxis DVT Prophylaxis DVT: Heparin SQ, SCDs Assessment/Plan - Assessment and Plan (Free Text) Assessment: 62yo M with PMHx of Bipolar disorder and ETOH abuse in ICU for DTs 2/2 ETOH withdrawal. Patient initially admitted to psych for suicidal ideation then transferred to in-patient due to severe ETOH withdrawal with DTs requiring high- dose sedation and intubation. Rhabdomyolysis was also noted, but has been improving. CXR showing worsening of RLL consolidation, and patient has been on antibiotics to cover respiratory infections including sinusitis seen on imaging. Patient has not been doing well off sedation and becomes agitated. Plan: Neuro: - Intubated and sedated on precedex - will continue attempting to wean off sedation daily - Ativan prn to avoid over-sedation - will started on Propranolol and Cyprohepatadine for tremor, monitor for changes - continue thiamine, folic acid and multivitamin supplements - Neuro consulted- recs appreciated - EEG showed subclinical seizure, neuro recommending repeat EEG - MRI brain showed persistent b/l maxially, ethomoid and sphoenoid sinusitis w/ mastoid effusions - Keppra 750mg BID for seizure precautions - Continue CIWA protocol, seizure precaution, aspiration precaution - Head CT negative for acute pathology Cardio: - HD stable - Maintain MAP> 65mmHg - Hydralazine PRN for BP control - Propranolol started scheduled Pulm: - Intubated- wean as tolerated - Protective lung ventilation strategy, HOB elevated, daily oral care, and aspiration precautions, DVT and GI ppx, as well as daily attempts to wean off vent and sedation - CXR showed RLL Effusion - Xopenex PRN - will cont Meropenem and Linezolid as well as tobramycin inhaled for CXR - Maintain spO2>90% GI: - cont OG tube feeds - Thiamine, Folic acid, and MV for ETOH withdrawal and DTs - PPI for GI ppx Heme: - Hgb stable - platelets stable - monitor H/H daily Nephro: - Rhabdomyolysis resolved - daily CPK to monitor for rhabdo - Hypernatremia resolved w/ free water flushes and IVF - Will continue to monitor electrolytes and replace as needed - Continue to monitor I&O ID: - Fevers likely 2/2 withdrawals; blood cultures and UA negative so far, but CXR found RLL consolidation; will cont Meropenem, Linezolid and Tobramycin inhaled and monitor fevers - Bacitracin, Zinc, MV and vit C for skin - ID consulted- recs appreciated - PICC line order placed for poor access Psych: - Hx of Bipolar - Psych consulted- recs appreciated - will evaluate once off of sedation - Consent for trach and PICC line obtained by Dr. Velez on 12/05 with family members over phone GI ppx: Protonix DVT ppx: Heparin SC and SCDs Diet: Tube feeds Dispo: Will try to wean off of sedation as tolerated. Will trial wean off vent daily. Patient was seen, examined, and discussed with attending, Dr. Dilan Traore PGY1 Pager [phone] <Cooper Kong - Last Filed: 12/08/17 11:31> CCU Objective - Vital Signs / Intake & Output Vital Signs (Last 4 hours): Vital Signs Pulse BP 12/08/17 10:29 74 125/75 Intake and Output (Last 8hrs): Intake & Output 12/07/17 12/08/17 12/08/17 22:59 06:59 14:59 Intake Total 3400 4510 100.0 Output Total 675 1000 Balance 2725 3510 100.0 Weight 196 lb 4.8 oz Intake: IV 2600 2850 100.0 Left Internal Jugular 2100 2200 precedex 300 350 Oral 100 Tube Feeding 700 760 Other 900 Output: Urine 675 1000 Urethral (Mackenzie) 675 1000 Other: # Bowel Movements 300 0 - Medications Active Medications: Active Medications Generic Name Dose Route Start Last Admin Trade Name Freq PRN Reason Stop Dose Admin Acetaminophen 650 mg 12/05/17 12:27 Tylenol 650 Mg Supp RC Q6H PRN Fever >100.4 F Ascorbic Acid 500 mg 11/28/17 11:30 12/08/17 10:29 Vitamin C 500 Mg Tab PO 500 mg DAILY SHIV Administration Bacitracin 1 ea 11/28/17 08:51 11/28/17 09:34 Bacitracin TOP 1 ea Q6 PRN Administration Swelling Cyproheptadine HCl 4 mg 12/05/17 11:15 12/08/17 10:29 Periactin PO 4 mg Q8H SHIV Administration Docusate Sodium 100 mg 12/05/17 18:00 12/08/17 10:29 Colace Liquid PO 100 mg BID SHIV Administration Folic Acid 1 mg 12/01/17 10:15 12/08/17 10:29 Folic Acid PO 1 mg DAILY SHIV Administration Heparin Sodium (Porcine) 5,000 units 12/03/17 08:15 12/08/17 05:30 Heparin SC 5,000 units Q8 SHIV Administration Protocol Hydralazine HCl 10 mg 11/29/17 14:56 12/02/17 12:56 Apresoline IVP 10 mg Q6 PRN Administration give if SBP >160 Dexmedetomidine HCl 400 mcg in 100 mls @ 3.629 mls/hr 11/26/17 09:21 10:52 Precedex 4 Mcg/Ml (100 Ml) IV 1.5 mcg/kg/hr .Q24H PRN 27.216 mls/hr Agitation Administration Protocol 0.2 MCG/KG/HR Lactated Ringer's 1,000 mls @ 150 mls/hr 12/03/17 11:30 12/08/17 10:17 Lactated Ringer's IV 150 mls/hr .Q6H40M SHIV Administration Meropenem 500 mg/ Sodium 100 mls @ 100 mls/hr 12/04/17 22:00 12/08/17 05:14 Chloride IVPB 100 mls/hr Q8 SHIV Administration Protocol Vancomycin HCl 1 gm in 250 mls @ 166.667 mls/hr 12/08/17 10:26 12/08/17 10:57 Vancomycin 1gm IVPB 166.667 mls/hr Q12H SHIV Administration Protocol Insulin Human Lispro 0 units 11/26/17 09:00 12/08/17 10:18 Humalog Low SC Not Given Q6H SHIV Protocol Levalbuterol HCl 0.63 mg 12/02/17 09:55 12/07/17 13:15 Xopenex IH 0.63 mg [id number] PRN Administration Shortness of Breath Levetiracetam 750 mg 12/04/17 22:00 12/08/17 10:29 Keppra PO 750 mg Q12 SHIV Administration Lorazepam 2 mg 12/08/17 08:52 Ativan IVP Q4 PRN Agitation Protocol Multivitamins/Minerals 1 tab 11/29/17 08:00 12/08/17 08:47 Therapeutic-M Tab PO 1 tab 0800 SHIV Administration Pantoprazole Sodium 40 mg 11/22/17 10:00 02/19/18 10:29 Protonix Inj IVP 40 mg DAILY SHIV Administration Polyethylene Glycol 17 gm 12/05/17 18:00 12/08/17 10:30 Miralax PO 17 gm BID SHIV Administration Propranolol HCl 40 mg 12/05/17 11:00 12/08/17 10:29 Inderal PO 40 mg BID SHIV Administration Thiamine HCl 100 mg 11/28/17 14:00 12/08/17 10:29 Vitamin B1 Tab PO 100 mg TID SHIV Administration Tobramycin Sulfate 0.08 gm 12/05/17 11:00 12/08/17 11:24 Tobramycin Inj IH 0.08 gm [id number] SHIV Administration Valproate Sodium 250 mg 12/05/17 22:00 12/08/17 10:29 Depakene Cap PO 250 mg Q12 SHIV Administration Zinc Sulfate 220 mg 11/28/17 11:30 12/08/17 10:28 Zinc Sulfate 220 Mg Cap PO 220 mg DAILY SHIV Administration - Patient Studies Lab Studies: Lab Studies 12/08/17 12/08/17 12/08/17 Range/Units 06:30 06:30 06:30 WBC 4.9 (4.5-11.0) 10^3/ul RBC 3.06 L (3.5-6.1) 10^6/uL Hgb 9.2 L (14.0-18.0) g/dL Hct 28.1 L (42.0-52.0) % MCV 91.8 (80.0-105.0) fl MCH 30.1 (25.0-35.0) pg MCHC 32.7 (31.0-37.0) g/dl RDW 14.1 (11.5-14.5) % Plt Count 287 (120.0-450.0) 10^3/uL MPV 11.0 (7.0-11.0) fl Gran % 76.7 H (50.0-68.0) % Lymph % (Auto) 12.2 L (22.0-35.0) % [place] % (Auto) 8.2 H (1.0-6.0) % Eos % (Auto) 2.7 (1.5-5.0) % Baso % (Auto) 0.2 (0.0-3.0) % Gran # 3.72 (1.4-6.5) Lymph # (Auto) 0.6 L (1.2-3.4) [place] # (Auto) 0.4 (0.1-0.6) Eos # (Auto) 0.1 (0.0-0.7) Baso # (Auto) 0.01 (0.0-2.0) K/mm3 pCO2 34 L (35-45) mm/Hg pO2 83.0 (80-100) mm/Hg HCO3 23.6 (21-28) mmol/L ABG pH 7.45 (7.35-7.45) ABG Total CO2 24.6 (22-28) mmol.L ABG O2 Saturation 99.3 H (95-98) % ABG O2 Content 11.9 L (15-23) ML/dl ABG Base Excess -0.2 (-2.0-3.0) mmol/L ABG Hemoglobin 8.7 L (11.7-17.4) g/dL ABG Carboxyhemoglobin 1.8 H (0.5-1.5) % POC ABG HHb (Measured) 0.7 (0-5) % ABG Methemoglobin 1.1 (0.0-3.0) % ABG O2 Capacity 12.0 L (16-24) mL/dl Hgb O2 Saturation 96.4 (95.0-98.0) % FiO2 50.0 % Sodium 144 (132-148) mmol/L Potassium 3.4 L (3.6-5.0) mmol/L Chloride 110 H (98-107) mmol/L Carbon Dioxide 27 (21-33) mmol/L Anion Gap 10 (10-20) BUN 8 (7-21) mg/dL Creatinine 0.6 L (0.8-1.5) mg/dl Est GFR ( Amer) > 60 Est GFR (Non-Af Amer) > 60 POC Glucose (mg/dL) (65-110) mg/dL Random Glucose 120 H (70-110) mg/dL Calcium 8.0 L (8.4-10.5) mg/dL Magnesium 2.0 (1.7-2.2) mg/dL Total Bilirubin 0.2 (0.2-1.3) mg/dL AST 42 (17-59) U/L ALT 74 H (7-56) U/L Alkaline Phosphatase 55 (38-126) U/L Total Creatine Kinase 57 (35-230) U/L Total Protein 4.5 L (5.8-8.3) g/dL Albumin 2.2 L (3.0-4.8) g/dL Globulin 2.3 gm/dL Albumin/Globulin Ratio 1.0 L (1.1-1.8) 12/08/17 12/07/17 12/07/17 Range/Units 03:12 20:59 14:49 WBC (4.5-11.0) 10^3/ul RBC (3.5-6.1) 10^6/uL Hgb (14.0-18.0) g/dL Hct (42.0-52.0) % MCV (80.0-105.0) fl MCH (25.0-35.0) pg MCHC (31.0-37.0) g/dl RDW (11.5-14.5) % Plt Count (120.0-450.0) 10^3/uL MPV (7.0-11.0) fl Gran % (50.0-68.0) % Lymph % (Auto) (22.0-35.0) % [place] % (Auto) (1.0-6.0) % Eos % (Auto) (1.5-5.0) % Baso % (Auto) (0.0-3.0) % Gran # (1.4-6.5) Lymph # (Auto) (1.2-3.4) [place] # (Auto) (0.1-0.6) Eos # (Auto) (0.0-0.7) Baso # (Auto) (0.0-2.0) K/mm3 pCO2 (35-45) mm/Hg pO2 (80-100) mm/Hg HCO3 (21-28) mmol/L ABG pH (7.35-7.45) ABG Total CO2 (22-28) mmol.L ABG O2 Saturation (95-98) % ABG O2 Content (15-23) ML/dl ABG Base Excess (-2.0-3.0) mmol/L ABG Hemoglobin (11.7-17.4) g/dL ABG Carboxyhemoglobin (0.5-1.5) % POC ABG HHb (Measured) (0-5) % ABG Methemoglobin (0.0-3.0) % ABG O2 Capacity (16-24) mL/dl Hgb O2 Saturation (95.0-98.0) % FiO2 % Sodium (132-148) mmol/L Potassium (3.6-5.0) mmol/L Chloride (98-107) mmol/L Carbon Dioxide (21-33) mmol/L Anion Gap (10-20) BUN (7-21) mg/dL Creatinine (0.8-1.5) mg/dl Est GFR ( Amer) Est GFR (Non-Af Amer) POC Glucose (mg/dL) 119 H 137 H 114 H (65-110) mg/dL Random Glucose (70-110) mg/dL Calcium (8.4-10.5) mg/dL Magnesium (1.7-2.2) mg/dL Total Bilirubin (0.2-1.3) mg/dL AST (17-59) U/L ALT (7-56) U/L Alkaline Phosphatase (38-126) U/L Total Creatine Kinase (35-230) U/L Total Protein (5.8-8.3) g/dL Albumin (3.0-4.8) g/dL Globulin gm/dL Albumin/Globulin Ratio (1.1-1.8) Laboratory Results - last 24 hr 12/07/17 12/07/17 12/08/17 14:49 20:59 03:12 WBC RBC Hgb Hct MCV MCH MCHC RDW Plt Count MPV Gran % Lymph % (Auto) [place] % (Auto) Eos % (Auto) Baso % (Auto) Gran # Lymph # (Auto) [place] # (Auto) Eos # (Auto) Baso # (Auto) pCO2 pO2 HCO3 ABG pH ABG Total CO2 ABG O2 Saturation ABG O2 Content ABG Base Excess ABG Hemoglobin ABG Carboxyhemoglobin POC ABG HHb (Measured) ABG Methemoglobin ABG O2 Capacity Hgb O2 Saturation FiO2 Sodium Potassium Chloride Carbon Dioxide Anion Gap BUN Creatinine Est GFR ( Amer) Est GFR (Non-Af Amer) POC Glucose (mg/dL) 114 H 137 H 119 H Random Glucose Calcium Magnesium Total Bilirubin AST ALT Alkaline Phosphatase Total Creatine Kinase Total Protein Albumin Globulin Albumin/Globulin Ratio 12/08/17 12/08/17 12/08/17 06:30 06:30 06:30 WBC 4.9 RBC 3.06 L Hgb 9.2 L Hct 28.1 L MCV 91.8 MCH 30.1 MCHC 32.7 RDW 14.1 Plt Count 287 MPV 11.0 Gran % 76.7 H Lymph % (Auto) 12.2 L [place] % (Auto) 8.2 H Eos % (Auto) 2.7 Baso % (Auto) 0.2 Gran # 3.72 Lymph # (Auto) 0.6 L [place] # (Auto) 0.4 Eos # (Auto) 0.1 Baso # (Auto) 0.01 pCO2 34 L pO2 83.0 HCO3 23.6 ABG pH 7.45 ABG Total CO2 24.6 ABG O2 Saturation 99.3 H ABG O2 Content 11.9 L ABG Base Excess -0.2 ABG Hemoglobin 8.7 L ABG Carboxyhemoglobin 1.8 H POC ABG HHb (Measured) 0.7 ABG Methemoglobin 1.1 ABG O2 Capacity 12.0 L Hgb O2 Saturation 96.4 FiO2 50.0 Sodium 144 Potassium 3.4 L Chloride 110 H Carbon Dioxide 27 Anion Gap 10 BUN 8 Creatinine 0.6 L Est GFR ( Amer) > 60 Est GFR (Non-Af Amer) > 60 POC Glucose (mg/dL) Random Glucose 120 H Calcium 8.0 L Magnesium 2.0 Total Bilirubin 0.2 AST 42 ALT 74 H Alkaline Phosphatase 55 Total Creatine Kinase 57 Total Protein 4.5 L Albumin 2.2 L Globulin 2.3 Albumin/Globulin Ratio 1.0 L Assessment/Plan - Assessment and Plan (Free Text) Assessment: Pt seen and examined on rounds with resident, agree with note with following additions/exceptions: 62yo male with PMHx of heavy EtOH abuse a/w EtOH withdrawal, DTs, intubated. Patient with agitation, confusion, once off sedation. Very difficult to wean off ventilator 2/2 poor mental status. Patient becomes agitated, confused once off sedation. On Precedex drip, propofol off. CT head negative. EEG done. Neurology following. MRI brain done which did not show any acute findings. Delirium Tremens Alcohol Withdrawal Dehydration AMS Rhabdo, resolved ?Serotonin Syndrome Recommend: - cont with ventilatory support, daily sedation vacation, daily cpap trials - cont with antibiotics as per ID, follow up Procal, cultures - IVF hydration - Thiamine, Folic, MVT - cont with Keppra - repeat EEG - Periactin as per Neuro - Precedex drip - follow up Psych - follow up Neuro - Feeds - GI ppx - DVT ppx - patient requires LTACH critical care time 40 minutes
[2017-12-08] MEDS: Multivitamin With Minerals Tab PO SCH (08:47)
--- NOTE | 2017-12-08 10:02 | RAD ---
HISTORY: intubated COMPARISON: 12/06/2017 FINDINGS: LUNGS: No active pulmonary disease. PLEURA: There is a small to moderate right pleural effusion CARDIOVASCULAR: Normal. OSSEOUS STRUCTURES: No significant abnormalities. VISUALIZED UPPER ABDOMEN: Normal. OTHER FINDINGS: Endotracheal and nasogastric tube in satisfactory position. Left IJ line in satisfactory position IMPRESSION: Small to moderate right pleural effusion
[2017-12-08] MEDS ORDERED: Vancomycin 1 GM in Sodium Chloride 0.9% 500 ML IVPB SCH (10:05)
[2017-12-08] MEDS: levETIRAcetam 500 mg/5ml UD cups PO SCH ×3 (10:29→22:14)
[2017-12-08] MEDS: POLYETHYLENE GLYCOL 3350 17 GM/Dose PACKET PO SCH ×2 (10:30→18:41)
[2017-12-08] MEDS: Vancomycin 1gm in NS 250ml 1 GM/250 ML BAG IVPB SCH ×2 (10:57→22:13)
[2017-12-08] MEDS: Tobramycin 1.2 gm Inj IH SCH ×3 (11:24→21:30)
--- NOTE | 2017-12-08 12:00 | CP.PCM.PN ---
Subjective - Date & Time of Evaluation Date of Evaluation: 12/08/17 Time of Evaluation: 07:10 - Subjective Subjective: Neuro progress note: Pt seen and examined at the bedside in ICU. Pt is currently intubated and sedated with precedex and Ativan PRN . His pupils remains reactive to light accommodation but sluggish. gag and corneal reflexes intact. Pt becomes restlessness and agitated when weaned from sedation. Pt is on bilateral wrist restraints for patient safety. 12 Point ROS unobtainable Objective - Vital Signs/Intake and Output Vital Signs (last 24 hours): Temp Pulse Resp BP Pulse Ox 98.5 F 74 30 H 125/75 100 12/08/17 04:00 12/08/17 10:29 12/07/17 07:41 12/08/17 10:29 12/08/17 07:00 Intake and Output: 12/08/17 12/08/17 06:59 18:59 Intake Total 4610 100.0 Output Total 1000 Balance 3610 100.0 - Medications Medications: Current Medications Acetaminophen (Tylenol 650 Mg Supp) 650 mg RC Q6H PRN PRN Reason: Fever >100.4 F Ascorbic Acid (Vitamin C 500 Mg Tab) 500 mg PO DAILY [facility] Last Admin: 12/08/17 10:29 Dose: 500 mg Bacitracin (Bacitracin) 1 ea TOP Q6 PRN PRN Reason: Swelling Last Admin: 11/28/17 09:34 Dose: 1 ea Cyproheptadine HCl (Periactin) 4 mg PO Q8H [facility] Last Admin: 12/08/17 10:29 Dose: 4 mg Docusate Sodium (Colace Liquid) 100 mg PO BID [facility] Last Admin: 12/08/17 10:29 Dose: 100 mg Folic Acid (Folic Acid) 1 mg PO DAILY [facility] Last Admin: 12/08/17 10:29 Dose: 1 mg Heparin Sodium (Porcine) (Heparin) 5,000 units SC Q8 [facility] PRN Reason: Protocol Last Admin: 12/08/17 05:30 Dose: 5,000 units Hydralazine HCl (Apresoline) 10 mg IVP Q6 PRN PRN Reason: give if SBP >160 Last Admin: 12/02/17 12:56 Dose: 10 mg Dexmedetomidine HCl (Precedex 4 Mcg/Ml (100 Ml)) 400 mcg in 100 mls @ 3.629 mls /hr IV .Q24H PRN; Protocol; 0.2 MCG/KG/HR PRN Reason: Agitation Last Admin: 12/08/17 10:52 Dose: 1.5 mcg/kg/hr, 27.216 mls/hr Meropenem 500 mg/ Sodium (Chloride) 100 mls @ 100 mls/hr IVPB Q8 SHIV PRN Reason: Protocol Last Admin: 12/08/17 05:14 Dose: 100 mls/hr Vancomycin HCl (Vancomycin 1gm) 1 gm in 250 mls @ 166.667 mls/hr IVPB Q12H [facility]IV PRN Reason: Protocol Last Admin: 12/08/17 10:57 Dose: 166.667 mls/hr Insulin Human Lispro (Humalog Low) 0 units SC Q6H [facility] PRN Reason: Protocol Last Admin: 12/08/17 10:18 Dose: Not Given Levalbuterol HCl (Xopenex) 0.63 mg IH [id number] PRN PRN Reason: Shortness of Breath Last Admin: 12/07/17 13:15 Dose: 0.63 mg Levetiracetam (Keppra) 750 mg PO Q12 [facility] Last Admin: 12/08/17 10:29 Dose: 750 mg Lorazepam (Ativan) 2 mg IVP Q4 PRN; Protocol PRN Reason: Agitation Multivitamins/Minerals (Therapeutic-M Tab) 1 tab PO 0800 [facility] Last Admin: 12/08/17 08:47 Dose: 1 tab Pantoprazole Sodium (Protonix Inj) 40 mg IVP DAILY [facility] Last Admin: 12/08/17 10:29 Dose: 40 mg Polyethylene Glycol (Miralax) 17 gm PO BID [facility] Last Admin: 12/08/17 10:30 Dose: 17 gm Propranolol HCl (Inderal) 40 mg PO BID [facility] Last Admin: 12/08/17 10:29 Dose: 40 mg Thiamine HCl (Vitamin B1 Tab) 100 mg PO TID [facility] Last Admin: 12/08/17 10:29 Dose: 100 mg Tobramycin Sulfate (Tobramycin Inj) 0.08 gm IH [id number] [facility] Last Admin: 12/08/17 11:24 Dose: 0.08 gm Valproate Sodium (Depakene Cap) 250 mg PO Q12 [facility] Last Admin: 12/08/17 10:29 Dose: 250 mg Zinc Sulfate (Zinc Sulfate 220 Mg Cap) 220 mg PO DAILY [facility] Last Admin: 12/08/17 10:28 Dose: 220 mg - Labs Labs: 12/08/17 06:30 12/08/17 06:30 PT 16.6 SECONDS (9.4-12.5) H 12/06/17 06:00 INR 1.43 (0.93-1.08) H 12/06/17 06:00 - Constitutional Appears: No Acute Distress - Eye Exam Pupil Exam: NORMAL ACCOMODATION (sluggish) - Neurological Exam Neuro motor strength exam: Left Upper Extremity: 5, Right Upper Extremity: 5, Left Lower Extremity: 5, Right Lower Extremity: 5 Additional comments: gag and corneal reflexes intact , GCS-4T, with involuntary focal movement of the right upper extremity. Assessment and Plan - Assessment and Plan (Free Text) Assessment: 62yo M with PMHx of Bipolar disorder and ETOH abuse in ICU for DTs requiring intubation and sedation with precedex. EEG shows subclinical seizures. - EEG ordered - Cont Depakote 250mg Q12H - Increase Keppra to 1000mg Q12 - Seizure precautions - Sedation with precedex as per ICU - Continue antibiotics as per ID - Blood pressure control - Maintain blood sugars 140-180 Case and plan was reviewed and discussed in detail with Dr Rosenberg.
--- NOTE | 2017-12-08 15:06 | CP.PCM.PN ---
<Sarkis Fuentes - Last Filed: 12/08/17 15:03> Subjective - Date & Time of Evaluation Date of Evaluation: 12/08/17 Time of Evaluation: 07:40 - Subjective Subjective: Medicine progress note for Dr. Chaparro Hospitalist Service Patient seen and examined at bedside. Patient resting comfortably with decreased tremors noted compared to the previous week. Patient remains intubated and sedated. Therefore, ROS unable to be obtained. Objective - Vital Signs/Intake and Output Vital Signs (last 24 hours): Temp Pulse Resp BP Pulse Ox 98.5 F 76 30 H 132/74 91 L 12/08/17 04:00 12/08/17 13:00 12/07/17 07:41 12/08/17 13:00 12/08/17 13:00 Intake and Output: 12/08/17 12/08/17 06:59 18:59 Intake Total 4610 100.0 Output Total 1000 Balance 3610 100.0 - Medications Medications: Current Medications Acetaminophen (Tylenol 650 Mg Supp) 650 mg RC Q6H PRN PRN Reason: Fever >100.4 F Ascorbic Acid (Vitamin C 500 Mg Tab) 500 mg PO DAILY [facility] Last Admin: 12/08/17 10:29 Dose: 500 mg Bacitracin (Bacitracin) 1 ea TOP Q6 PRN PRN Reason: Swelling Last Admin: 11/28/17 09:34 Dose: 1 ea Cyproheptadine HCl (Periactin) 4 mg PO Q8H [facility] Last Admin: 12/08/17 10:29 Dose: 4 mg Docusate Sodium (Colace Liquid) 100 mg PO BID [facility] Last Admin: 12/08/17 10:29 Dose: 100 mg Folic Acid (Folic Acid) 1 mg PO DAILY [facility] Last Admin: 12/08/17 10:29 Dose: 1 mg Heparin Sodium (Porcine) (Heparin) 5,000 units SC Q8 [facility] PRN Reason: Protocol Last Admin: 12/08/17 05:30 Dose: 5,000 units Hydralazine HCl (Apresoline) 10 mg IVP Q6 PRN PRN Reason: give if SBP >160 Last Admin: 12/02/17 12:56 Dose: 10 mg Dexmedetomidine HCl (Precedex 4 Mcg/Ml (100 Ml)) 400 mcg in 100 mls @ 3.629 mls /hr IV .Q24H PRN; Protocol; 0.2 MCG/KG/HR PRN Reason: Agitation Last Admin: 12/08/17 10:52 Dose: 1.5 mcg/kg/hr, 27.216 mls/hr Meropenem 500 mg/ Sodium (Chloride) 100 mls @ 100 mls/hr IVPB Q8 [facility]IV PRN Reason: Protocol Last Admin: 12/08/17 05:14 Dose: 100 mls/hr Vancomycin HCl (Vancomycin 1gm) 1 gm in 250 mls @ 166.667 mls/hr IVPB Q12H [facility] PRN Reason: Protocol Last Admin: 12/08/17 10:57 Dose: 166.667 mls/hr Insulin Human Lispro (Humalog Low) 0 units SC Q6H [facility] PRN Reason: Protocol Last Admin: 12/08/17 10:18 Dose: Not Given Levalbuterol HCl (Xopenex) 0.63 mg IH [id number] PRN PRN Reason: Shortness of Breath Last Admin: 12/07/17 13:15 Dose: 0.63 mg Levetiracetam (Keppra) 750 mg PO Q12 [facility] Last Admin: 12/08/17 10:29 Dose: 750 mg Lorazepam (Ativan) 2 mg IVP Q4 PRN; Protocol PRN Reason: Agitation Last Admin: 12/08/17 13:39 Dose: 2 mg Multivitamins/Minerals (Therapeutic-M Tab) 1 tab PO 0800 [facility] Last Admin: 12/08/17 08:47 Dose: 1 tab Pantoprazole Sodium (Protonix Inj) 40 mg IVP DAILY [facility] Last Admin: 12/08/17 10:29 Dose: 40 mg Polyethylene Glycol (Miralax) 17 gm PO BID [facility] Last Admin: 12/08/17 10:30 Dose: 17 gm Propranolol HCl (Inderal) 40 mg PO BID [facility] Last Admin: 12/08/17 10:29 Dose: 40 mg Thiamine HCl (Vitamin B1 Tab) 100 mg PO TID [facility] Last Admin: 12/08/17 10:29 Dose: 100 mg Tobramycin Sulfate (Tobramycin Inj) 0.08 gm IH [id number] [facility] Last Admin: 12/08/17 11:24 Dose: 0.08 gm Valproate Sodium (Depakene Cap) 250 mg PO Q12 [facility] Last Admin: 12/08/17 10:29 Dose: 250 mg Zinc Sulfate (Zinc Sulfate 220 Mg Cap) 220 mg PO DAILY [facility] Last Admin: 12/08/17 10:28 Dose: 220 mg - Labs Labs: 12/08/17 06:30 12/08/17 06:30 PT 16.6 SECONDS (9.4-12.5) H 12/06/17 06:00 INR 1.43 (0.93-1.08) H 12/06/17 06:00 - Constitutional Appears: Chronically Ill - Head Exam Head Exam: ATRAUMATIC, NORMOCEPHALIC - Eye Exam Eye Exam: Normal appearance - ENT Exam ENT Exam: Mucous Membranes Moist - Respiratory Exam Respiratory Exam: Clear to Ausculation Bilateral. absent: Rales, Rhonchi, Wheezes Additional comments: On mechanical ventilation 50% FiO2, PEEP 5, Tidal Volume 400, Respiratory rate 18 - Cardiovascular Exam Cardiovascular Exam: REGULAR RHYTHM, +S1, +S2 - GI/Abdominal Exam GI & Abdominal Exam: Soft. absent: Distended, Firm, Tenderness - Extremities Exam Extremities Exam: absent: Pedal Edema Additional comments: Blisters on right hand - Neurological Exam Neurological Exam: Altered - Skin Skin Exam: Warm Assessment and Plan - Assessment and Plan (Free Text) Assessment: 62 year old male with PMHx of Bipolar disorder and ETOH abuse in ICU for DTs. Patient initially admitted to psych for suicidal ideation then transferred to in -patient due to severe ETOH withdrawal with DTs requiring high-dose sedation and intubation. Subclinical seizure noted on EEG performed on 11/30/17. Fevers likely due to DTs versus developing RLL consolidation and pleural effusion seen on CXR. Plan: 1. ETOH withdrawal with Delirium Tremens - Intubated and sedated currently on precedex - Neuro consulted- recs appreciated - Continue CIWA protocol, seizure precaution, aspiration precaution - Ativan 4 mg IV prn agitation - Head CT negative for acute pathology - EEG with subclinical seizure seen; neurology recommends repeat EEG - IV Depakote on board for seizures - MRI brain showed persistent bilateral maxially, ethomoid and sphoenoid sinusitis with mastoid effusions - Railways Assistant was able to obtain consent for trach and PICC line from family over the phone 2. Altered Mental Status, currently being sedated for DT's - CT head was unremarkable - thiamine increased to protect against encephalopathy - EEG with subclinical seizure seen; neurology recommends repeat EEG 3. Right lower lobe consolidations secondary to HCAP - Seen on CXR and worsening, with pleural effusion as well - Possible pneumonia with pleural effusion versus atelectasis - Treated with Merrem 4. Sinusitis - seen on MRI - Continue to treat with Inhaled Tobramycin 5. Blisters on hands - Multivitamin, vit C and Zinc added - Bacitracin ointment to be applied 6. Rhabdomyolysis - likely secondary to DT's - renal function has not been affected - CPK markedly elevated but is now downtrending - will monitor 7. Fever, suspected due to pneumonia - Possibly secondary to ETOH withdrawals - ID consult, appreciate recs - Currently afebrile - Follow up septic workup - negative Lower Extremity ultrasound - no vegetations seen on echo -Remeron as a cause of possible serotonin syndrome; cyproheptadine and propranolol started 8. Electrolyte imbalance - monitor and replete as needed 9. Transaminitis Due to chronic alcohol abuse, will discuss alcohol cessation with patient once no longer sedated. 10. Prophylaxis - SCDs - Aspiration precautions - Seizure precautions - Heparin SC - Protonix Disposition: Remains intubated for now. MRI shows sinusitis, so inhaled Tobramycin was started. Developing RLL consolidation seen. Possible pneumonia with effusion versus atelectasis. Treating for pneumonia as likely source of fever. Continue to attempt weaning off of ventilation support. Possible trach placement on . Will ultimately need LTACH. Discussed and seen with Dr. Chaparro <Charlotte Chaparro - Last Filed: 12/08/17 16:48> Objective - Vital Signs/Intake and Output Vital Signs (last 24 hours): Temp Pulse Resp BP Pulse Ox 98.5 F 76 30 H 132/74 91 L 12/08/17 04:00 12/08/17 13:00 12/07/17 07:41 12/08/17 13:00 12/08/17 13:00 Intake and Output: 12/08/17 12/08/17 06:59 18:59 Intake Total 4610 100.0 Output Total 1000 Balance 3610 100.0 - Medications Medications: Current Medications Acetaminophen (Tylenol 650 Mg Supp) 650 mg RC Q6H PRN PRN Reason: Fever >100.4 F Ascorbic Acid (Vitamin C 500 Mg Tab) 500 mg PO DAILY [facility] Last Admin: 12/08/17 10:29 Dose: 500 mg Bacitracin (Bacitracin) 1 ea TOP Q6 PRN PRN Reason: Swelling Last Admin: 11/28/17 09:34 Dose: 1 ea Cyproheptadine HCl (Periactin) 4 mg PO Q8H [facility] Last Admin: 12/08/17 10:29 Dose: 4 mg Docusate Sodium (Colace Liquid) 100 mg PO BID [facility] Last Admin: 12/08/17 10:29 Dose: 100 mg Folic Acid (Folic Acid) 1 mg PO DAILY [facility] Last Admin: 12/08/17 10:29 Dose: 1 mg Heparin Sodium (Porcine) (Heparin) 5,000 units SC Q8 [facility] PRN Reason: Protocol Last Admin: 12/08/17 15:32 Dose: 5,000 units Hydralazine HCl (Apresoline) 10 mg IVP Q6 PRN PRN Reason: give if SBP >160 Last Admin: 12/02/17 12:56 Dose: 10 mg Dexmedetomidine HCl (Precedex 4 Mcg/Ml (100 Ml)) 400 mcg in 100 mls @ 3.629 mls /hr IV .Q24H PRN; Protocol; 0.2 MCG/KG/HR PRN Reason: Agitation Last Admin: 12/08/17 10:52 Dose: 1.5 mcg/kg/hr, 27.216 mls/hr Meropenem 500 mg/ Sodium (Chloride) 100 mls @ 100 mls/hr IVPB Q8 [facility] PRN Reason: Protocol Last Admin: 12/08/17 15:35 Dose: 100 mls/hr Vancomycin HCl (Vancomycin 1gm) 1 gm in 250 mls @ 166.667 mls/hr IVPB Q12H [facility] PRN Reason: Protocol Last Admin: 12/08/17 10:57 Dose: 166.667 mls/hr Insulin Human Lispro (Humalog Low) 0 units SC Q6H [facility] PRN Reason: Protocol Last Admin: 12/08/17 15:25 Dose: Not Given Levalbuterol HCl (Xopenex) 0.63 mg IH [id number] PRN PRN Reason: Shortness of Breath Last Admin: 12/07/17 13:15 Dose: 0.63 mg Levetiracetam (Keppra) 750 mg PO Q12 [facility] Last Admin: 12/08/17 10:29 Dose: 750 mg Lorazepam (Ativan) 4 mg IVP Q4 PRN; Protocol PRN Reason: Agitation Multivitamins/Minerals (Therapeutic-M Tab) 1 tab PO 0800 [facility] Last Admin: 12/08/17 08:47 Dose: 1 tab Pantoprazole Sodium (Protonix Inj) 40 mg IVP DAILY [facility] Last Admin: 12/08/17 10:29 Dose: 40 mg Polyethylene Glycol (Miralax) 17 gm PO BID [facility] Last Admin: 12/08/17 10:30 Dose: 17 gm Propranolol HCl (Inderal) 40 mg PO BID [facility] Last Admin: 12/08/17 10:29 Dose: 40 mg Thiamine HCl (Vitamin B1 Tab) 100 mg PO TID [facility] Last Admin: 12/08/17 15:38 Dose: 100 mg Tobramycin Sulfate (Tobramycin Inj) 0.08 gm IH [id number] [facility] Last Admin: 12/08/17 11:24 Dose: 0.08 gm Valproate Sodium (Depakene Cap) 250 mg PO Q12 [facility] Last Admin: 12/08/17 10:29 Dose: 250 mg Zinc Sulfate (Zinc Sulfate 220 Mg Cap) 220 mg PO DAILY [facility] Last Admin: 12/08/17 10:28 Dose: 220 mg - Labs Labs: 12/08/17 06:30 12/08/17 06:30 PT 16.6 SECONDS (9.4-12.5) H 12/06/17 06:00 INR 1.43 (0.93-1.08) H 12/06/17 06:00 Attending/Attestation - Attestation I have personally seen and examined this patient.: Yes I have fully participated in the care of the patient.: Yes I have reviewed all pertinent clinical information, including history, physical exam and plan: Yes Notes (Text): 12/08/17 16:37 attending note; Patient seen and examined with the resident in ICU. patient is a 62 year old male with history of bipolar disorder and chronic alcohol abuse is admitted for alcohol withdrawal and delirium tremens. Currently intubated And on Precedex drip. Unsuccessful weaning trial. Continue ventilator support. Case discussed with ICU in detail. Possible trach and PEG placement. GI evaluation requested. Pneumonia; CXR reveals RLL consolidation. LE duplex negative for DVT. MRI brain showed sinusitis. Cultures and procal negative. Patient is on Meropenem, vancomycin and tobramycin. UDS negative. Echo did not reveal any vegetation. CT head was negative. Will continue Ativan. EEG revealed subclinical seizure on keppra. Plan to repeat EEG. He was on remeron previously so there was a concern of possible serotonin syndrome therefore cyproheptadine was started. Transaminitis is improving. case discussed with social media content manager in detail for discharge planning. Paperwork completed. patient requires LTAC placement. Monitor closely in ICU. 12/08/17 16:48
--- NOTE | 2017-12-08 17:40 | CP.PCM.PN ---
Subjective - Date & Time of Evaluation Date of Evaluation: 12/08/17 Time of Evaluation: 16:00 - Subjective Subjective: Infectious Disease Follow Up: December 08, 2017 62 yo male with medical history that includes Bipolar disorder and alcohol abuse presented with EtOH intoxication and now in withdrawals. Originally in the psych floor for bipolar disease treatment and suicidal ideation on 11/21/2017. The patient required intubation. ID called for possible aspiration pneumonia. No fevers, leukocytosis at this time. Remains intubated. Still no fevers or leukocytosis. Remains sedated. Noted blistered skin on right hand that slightly improved. Persistent fevers up to 102.0 F in the past 24 hours but appears to be downtrending. Still no leukocytosis. Cultures from 11/30/2017 negative. New cultures sent 12/01-. Multiple blisters on the right hand. Fluid filler and dark in color. Patient highly agitated on attempts to wean sedation. Would obtain fluid from blisters for culture. Would consider CT of chest/ abdomen/pelvis. Continue on meropenem for antibiotic coverage at this point. Also on inhaled tobramycin and IV Zyvox. No new issues. Difficult extubation. Patient severely agitated when taken off sedation. Currently afebrile but still with diaphoresis. The patient an episode of temperature as low as 93.2 F two mornings ago but no further episodes since. Objective - Vital Signs/Intake and Output Vital Signs (last 24 hours): Temp Pulse Resp BP Pulse Ox 98.5 F 76 30 H 132/74 91 L 12/08/17 04:00 12/08/17 13:00 12/07/17 07:41 12/08/17 13:00 12/08/17 13:00 Intake and Output: 12/08/17 12/08/17 06:59 18:59 Intake Total 4610 100.0 Output Total 1000 Balance 3610 100.0 - Medications Medications: Current Medications Acetaminophen (Tylenol 650 Mg Supp) 650 mg RC Q6H PRN PRN Reason: Fever >100.4 F Ascorbic Acid (Vitamin C 500 Mg Tab) 500 mg PO DAILY [facility] Last Admin: 12/08/17 10:29 Dose: 500 mg Bacitracin (Bacitracin) 1 ea TOP Q6 PRN PRN Reason: Swelling Last Admin: 11/28/17 09:34 Dose: 1 ea Cyproheptadine HCl (Periactin) 4 mg PO Q8H [facility] Last Admin: 12/08/17 10:29 Dose: 4 mg Docusate Sodium (Colace Liquid) 100 mg PO BID [facility] Last Admin: 12/08/17 10:29 Dose: 100 mg Folic Acid (Folic Acid) 1 mg PO DAILY [facility] Last Admin: 12/08/17 10:29 Dose: 1 mg Heparin Sodium (Porcine) (Heparin) 5,000 units SC Q8 [facility] PRN Reason: Protocol Last Admin: 12/08/17 15:32 Dose: 5,000 units Hydralazine HCl (Apresoline) 10 mg IVP Q6 PRN PRN Reason: give if SBP >160 Last Admin: 12/02/17 12:56 Dose: 10 mg Dexmedetomidine HCl (Precedex 4 Mcg/Ml (100 Ml)) 400 mcg in 100 mls @ 3.629 mls /hr IV .Q24H PRN; Protocol; 0.2 MCG/KG/HR PRN Reason: Agitation Last Admin: 12/08/17 10:52 Dose: 1.5 mcg/kg/hr, 27.216 mls/hr Meropenem 500 mg/ Sodium (Chloride) 100 mls @ 100 mls/hr IVPB Q8 [facility] PRN Reason: Protocol Last Admin: 12/08/17 15:35 Dose: 100 mls/hr Vancomycin HCl (Vancomycin 1gm) 1 gm in 250 mls @ 166.667 mls/hr IVPB Q12H [facility] PRN Reason: Protocol Last Admin: 12/08/17 10:57 Dose: 166.667 mls/hr Insulin Human Lispro (Humalog Low) 0 units SC Q6H [facility] PRN Reason: Protocol Last Admin: 12/08/17 15:25 Dose: Not Given Levalbuterol HCl (Xopenex) 0.63 mg IH [id number] PRN PRN Reason: Shortness of Breath Last Admin: 12/07/17 13:15 Dose: 0.63 mg Levetiracetam (Keppra) 750 mg PO Q12 [facility] Last Admin: 12/08/17 10:29 Dose: 750 mg Lorazepam (Ativan) 4 mg IVP Q4 PRN; Protocol PRN Reason: Agitation Multivitamins/Minerals (Therapeutic-M Tab) 1 tab PO 0800 [facility] Last Admin: 12/08/17 08:47 Dose: 1 tab Pantoprazole Sodium (Protonix Inj) 40 mg IVP DAILY [facility] Last Admin: 12/08/17 10:29 Dose: 40 mg Polyethylene Glycol (Miralax) 17 gm PO BID [facility] Last Admin: 12/08/17 10:30 Dose: 17 gm Propranolol HCl (Inderal) 40 mg PO BID [facility] Last Admin: 12/08/17 10:29 Dose: 40 mg Thiamine HCl (Vitamin B1 Tab) 100 mg PO TID [facility] Last Admin: 12/08/17 15:38 Dose: 100 mg Tobramycin Sulfate (Tobramycin Inj) 0.08 gm IH [id number] [facility] Last Admin: 12/08/17 11:24 Dose: 0.08 gm Valproate Sodium (Depakene Cap) 250 mg PO Q12 [facility] Last Admin: 12/08/17 10:29 Dose: 250 mg Zinc Sulfate (Zinc Sulfate 220 Mg Cap) 220 mg PO DAILY [facility] Last Admin: 12/08/17 10:28 Dose: 220 mg - Labs Labs: 12/08/17 06:30 12/08/17 06:30 PT 16.6 SECONDS (9.4-12.5) H 12/06/17 06:00 INR 1.43 (0.93-1.08) H 12/06/17 06:00 - Constitutional Appears: Non-toxic, No Acute Distress, Chronically Ill - Head Exam Additional comments: intubated and ventilated - Eye Exam Eye Exam: EOMI, PERRL Pupil Exam: NORMAL ACCOMODATION, PERRL - ENT Exam ENT Exam: Mucous Membranes Moist, Normal External Ear Exam, TM's Normal Bilaterally - Neck Exam Neck Exam: Full ROM, Normal Inspection - Respiratory Exam Respiratory Exam: Clear to Ausculation Bilateral, NORMAL BREATHING PATTERN. absent: Rales, Rhonchi, Wheezes - Cardiovascular Exam Cardiovascular Exam: REGULAR RHYTHM, RRR, +S1, +S2 - GI/Abdominal Exam GI & Abdominal Exam: Soft, Normal Bowel Sounds. absent: Distended, Tenderness - Extremities Exam Extremities Exam: Full ROM, Joint Swelling, Pedal Edema - Neurological Exam Neurological Exam: Altered Additional comments: intubated and ventilated... poorly responsive. - Skin Skin Exam: Intact, Normal Color Assessment and Plan - Assessment and Plan (Free Text) Assessment: 62 yo male with EtOH abuse. Developed EtOH withdrawal and now required intubation and ventilation. The patient was being evaluated by ID for potential aspiration. The patient is currently on Cefepime and Vancomycin. If aspiration is a significant concern, would either add Flagyl IV or switch Cefepime to Meropenem or Zosyn. Febrile several days ago up to 102 F. Afebrile the last few days. No leukocytosis. No findings on Chest X-ray. Supportive care. Procalcitonin is 0.14 which is low. Noted procalcitonin repeated multiple times and all showing low values. Suggests strongly against bacterial causes but does not rule out viral. More likely secondary to the EtOH withdrawal and Delirium Tremens. Case discussed with team. Off antibiotics now. Will Monitor. Difficult extubation/wean from ventilation. Agitation when off sedation. Afebrile today but one temperature value showed hypothermia. Repeat cultures with next fever. Check urinalysis and urine culture. 11/30/2017 cultures negative so far. 12/01/2017 cultures pending. Fever downtrending. Chest X-ray suggesting HCAP. Antibiotics continues on Zyvox and Meropenem. For now the patient has remained afebrile but appears to have an uprising trend again. Supportive care. Thank you for allowing me to participate in the care of the patient, we will follow with you.
[2017-12-09] MEDS: Tobramycin 1.2 gm Inj IH SCH ×4 (00:02→21:39)
[2017-12-09] MEDS: Dexmedetomidine 400mcg/100mL 400 MCG/100 ML BOTTLE IV PRN ×5 (01:59→21:27)
[2017-12-09] MEDS: Insulin Lispro (humaLOG) LOW Coverage SC SCH ×3 (03:00→23:12)
[2017-12-09] MEDS: Meropenem 500 MG in Sodium Chloride 0.9% 100 ML IVPB SCH ×3 (05:23→21:40)
[2017-12-09 06:51] LABS: BASO # 0.01 K/mm3 (0.0-2.0); BASO % 0.2 % (0.0-3.0); EOS # 0.1 (0.0-0.7); GRAN # 5.2 (1.4-6.5); GRAN % 80.9 % (50.0-68.0); HEMOGLOBIN 9.9 g/dL (14.0-18.0); LYMPH # 0.7 (1.2-3.4); MEAN CELL VOLUME 92.5 fl (80.0-105.0); MEAN CORPUSCULAR HEMOGLOBIN 29.7 pg (25.0-35.0); MEAN CORPUSCULAR HGB CONC 32.1 g/dl (31.0-37.0); MEAN PLATELET VOLUME 11.3 fl (7.0-11.0); MONO # 0.4 (0.1-0.6); MONO % 5.9 % (1.0-6.0); RBC 3.33 10^6/uL (3.5-6.1); WHITE BLOOD COUNT 6.4 10^3/ul (4.5-11.0)
--- NOTE | 2017-12-09 07:15 | CP.PCM.CON ---
<Cb Medina - Last Filed: 12/09/17 12:19> History of Present Illness - History of Present Illness History of Present Illness: GI Consult note - Cb Medina PGY2 Reason for consult: PEG tube placement HPI: Patient is a 62yo male with past medical history of bipolar disorder and alcohol abuse that originally presented to [facility] on 11/18/17 for inpatient psychiatric treatment. History limited to chart review and physician/nursing staff due to patient status. Per chart, patient had been voluntarily admitted to inpatient psychiatry where he had been undergoing treatment for bipolar disorder as well as alcohol detox. On 11/20/17 he displayed symptoms of agitation, confusion and showed signs/symptoms of delirium tremens. He was subsequently transferred to the emergency room and thereafter the ICU where he was intubated and initiated on precedex drip. Since then patient has been treated for delirium tremens, rhabdomyolysis, RLL pneumonia and sinusitis. A head CT revealed no acute intracranial abnormalities and a brain MRI revealed age-related degenerative change with no abnormal intracranial enhancement and bilateral maxillary, ethmoid and sphenoid sinusitis. He has failed multiple weaning attempts and GI was consulted for PEG tube placement. 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 Endoscopy Hx: Unobtainable Past Patient History - Infectious Disease Hx of Infectious Diseases: None - Past Medical History & Family History Past Medical History?: Yes - Past Social History Smoking Status: Never Smoked - CARDIAC Hx Cardiac Disorders: No Hx Angina: No Hx Atrial Fibrillation: No Hx Cardia Arrhythmia: No Hx Circulatory Problems: No Hx Congestive Heart Failure: No Hx Heart Attack: No Hx Heart Murmur: No Hx Heart Transplant: No Hx Hypertension: No Hx Hypotension: No Hx Internal Defibrillator: No Hx Mitral Valve Prolapse: No Hx Pacemaker: No Hx Peripheral Edema: No Hx Peripheral Vascular Disease: No - PULMONARY Hx Respiratory Disorders: No - NEUROLOGICAL Hx Neurological Disorder: No - HEENT Hx HEENT Problems: No - RENAL Hx Chronic Kidney Disease: No - ENDOCRINE/METABOLIC Hx Endocrine Disorders: Yes Hx Diabetes Mellitus Type 1: Yes Hx Diabetes Mellitus Type 2: Yes - HEMATOLOGICAL/ONCOLOGICAL Hx Blood Disorders: No - INTEGUMENTARY Hx Dermatological Problems: No - MUSCULOSKELETAL/RHEUMATOLOGICAL Hx Musculoskeletal Disorders: No Hx Falls: Yes - GASTROINTESTINAL Hx Gastrointestinal Disorders: No Hx Gastroesophageal Reflux: Yes - GENITOURINARY/GYNECOLOGICAL Hx Genitourinary Disorders: No - PSYCHIATRIC Hx Psychophysiologic Disorder: No Hx Anxiety: Yes Hx Bipolar Disorder: Yes Hx Depression: Yes Hx Substance Use: No - SURGICAL HISTORY Other/Comment: L inguinal hernia repair. ?thymus - ANESTHESIA Hx Anesthesia: No Hx Anesthesia Reactions: No Hx Malignant Hyperthermia: No Meds Allergies/Adverse Reactions: Allergies Allergy/AdvReac Type Severity Reaction Status Date / Time No Known Allergies Allergy Verified 11/21/17 12:05 - Medications Medications: Current Medications Acetaminophen (Tylenol 650 Mg Supp) 650 mg RC Q6H PRN PRN Reason: Fever >100.4 F Ascorbic Acid (Vitamin C 500 Mg Tab) 500 mg PO DAILY [facility] Last Admin: 12/08/17 10:29 Dose: 500 mg Bacitracin (Bacitracin) 1 ea TOP Q6 PRN PRN Reason: Swelling Last Admin: 11/28/17 09:34 Dose: 1 ea Cyproheptadine HCl (Periactin) 4 mg PO Q8H [facility] Last Admin: 12/09/17 05:28 Dose: 4 mg Docusate Sodium (Colace Liquid) 100 mg PO BID [facility] Last Admin: 12/08/17 18:41 Dose: 100 mg Folic Acid (Folic Acid) 1 mg PO DAILY [facility] Last Admin: 12/08/17 10:29 Dose: 1 mg Heparin Sodium (Porcine) (Heparin) 5,000 units SC Q8 [facility] PRN Reason: Protocol Last Admin: 12/09/17 05:23 Dose: 5,000 units Hydralazine HCl (Apresoline) 10 mg IVP Q6 PRN PRN Reason: give if SBP >160 Last Admin: 12/02/17 12:56 Dose: 10 mg Dexmedetomidine HCl (Precedex 4 Mcg/Ml (100 Ml)) 400 mcg in 100 mls @ 3.629 mls /hr IV .Q24H PRN; Protocol; 0.2 MCG/KG/HR PRN Reason: Agitation Last Admin: 12/09/17 06:08 Dose: 1.5 mcg/kg/hr, 27.216 mls/hr Meropenem 500 mg/ Sodium (Chloride) 100 mls @ 100 mls/hr IVPB Q8 [facility] PRN Reason: Protocol Last Admin: 12/09/17 05:23 Dose: 100 mls/hr Vancomycin HCl (Vancomycin 1gm) 1 gm in 250 mls @ 166.667 mls/hr IVPB Q12H [facility] PRN Reason: Protocol Last Admin: 12/08/17 22:13 Dose: 166.667 mls/hr Insulin Human Lispro (Humalog Low) 0 units SC Q6H [facility] PRN Reason: Protocol Last Admin: 12/09/17 03:00 Dose: Not Given Levalbuterol HCl (Xopenex) 0.63 mg IH [id number] PRN PRN Reason: Shortness of Breath Last Admin: 12/07/17 13:15 Dose: 0.63 mg Levetiracetam (Keppra) 750 mg PO Q12 [facility] Last Admin: 12/08/17 22:14 Dose: 750 mg Lorazepam (Ativan) 4 mg IVP Q4 PRN; Protocol PRN Reason: Agitation Last Admin: 12/09/17 05:42 Dose: 4 mg Multivitamins/Minerals (Therapeutic-M Tab) 1 tab PO 0800 [facility] Last Admin: 12/08/17 08:47 Dose: 1 tab Pantoprazole Sodium (Protonix Inj) 40 mg IVP DAILY [facility] Last Admin: 12/08/17 10:29 Dose: 40 mg Polyethylene Glycol (Miralax) 17 gm PO BID [facility] Last Admin: 12/08/17 18:41 Dose: 17 gm Propranolol HCl (Inderal) 40 mg PO BID [facility] Last Admin: 12/08/17 18:40 Dose: 40 mg Thiamine HCl (Vitamin B1 Tab) 100 mg PO TID [facility] Last Admin: 12/08/17 18:41 Dose: 100 mg Tobramycin Sulfate (Tobramycin Inj) 0.08 gm IH [id number] [facility] Last Admin: 12/08/17 11:24 Dose: 0.08 gm Valproate Sodium (Depakene Cap) 250 mg PO Q12 [facility] Last Admin: 12/08/17 22:13 Dose: 250 mg Zinc Sulfate (Zinc Sulfate 220 Mg Cap) 220 mg PO DAILY [facility] Last Admin: 12/08/17 10:28 Dose: 220 mg Physical Exam - Head Exam Head Exam: ATRAUMATIC, NORMAL INSPECTION, NORMOCEPHALIC - ENT Exam ENT Exam: Mucous Membranes Moist - Neck Exam Neck exam: Positive for: Normal Inspection. Negative for: Lymphadenopathy, Tenderness - Respiratory Exam Respiratory Exam: absent: Decreased Breath Sounds, Respiratory Distress Additional comments: coarse breath sounds bilaterally - Cardiovascular Exam Cardiovascular Exam: +S1, +S2. absent: Clicks, Gallop, Rubs Additional comments: sternotomy scar - GI/Abdominal Exam GI & Abdominal Exam: Distended, Soft. absent: Firm, Guarding, Rebound, Rigid, Tenderness Additional comments: no hepatosplenomegaly - Extremities Exam Extremities exam: Positive for: normal inspection. Negative for: pedal edema - Neurological Exam Additional comments: intubated and sedated - Skin Skin Exam: Dry, Intact, Normal Color, Warm Results - Vital Signs Recent Vital Signs: Last Vital Signs Temp 99.5 F 12/09/17 00:00 Pulse 76 12/09/17 00:00 Resp 30 H 12/07/17 07:41 BP 134/85 12/09/17 00:00 Pulse Ox 99 12/09/17 00:00 - Labs Result Diagrams: 12/09/17 06:00 12/09/17 06:00 Labs: Laboratory Results - last 24 hr 12/08/17 12/08/17 12/08/17 06:30 06:30 06:30 WBC 4.9 RBC 3.06 L Hgb 9.2 L Hct 28.1 L MCV 91.8 MCH 30.1 MCHC 32.7 RDW 14.1 Plt Count 287 MPV 11.0 Gran % 76.7 H Lymph % (Auto) 12.2 L Dougherty % (Auto) 8.2 H Eos % (Auto) 2.7 Baso % (Auto) 0.2 Gran # 3.72 Lymph # (Auto) 0.6 L Dougherty # (Auto) 0.4 Eos # (Auto) 0.1 Baso # (Auto) 0.01 pCO2 34 L pO2 83.0 HCO3 23.6 ABG pH 7.45 ABG Total CO2 24.6 ABG O2 Saturation 99.3 H ABG O2 Content 11.9 L ABG Base Excess -0.2 ABG Hemoglobin 8.7 L ABG Carboxyhemoglobin 1.8 H POC ABG HHb (Measured) 0.7 ABG Methemoglobin 1.1 ABG O2 Capacity 12.0 L Hgb O2 Saturation 96.4 FiO2 50.0 Sodium 144 Potassium 3.4 L Chloride 110 H Carbon Dioxide 27 Anion Gap 10 BUN 8 Creatinine 0.6 L Est GFR ( Amer) > 60 Est GFR (Non-Af Amer) > 60 POC Glucose (mg/dL) Random Glucose 120 H Calcium 8.0 L Magnesium 2.0 Total Bilirubin 0.2 AST 42 ALT 74 H Alkaline Phosphatase 55 Total Creatine Kinase 57 Total Protein 4.5 L Albumin 2.2 L Globulin 2.3 Albumin/Globulin Ratio 1.0 L 12/08/17 12/08/17 12/08/17 09:04 14:55 20:52 WBC RBC Hgb Hct MCV MCH MCHC RDW Plt Count MPV Gran % Lymph % (Auto) Dougherty % (Auto) Eos % (Auto) Baso % (Auto) Gran # Lymph # (Auto) Dougherty # (Auto) Eos # (Auto) Baso # (Auto) pCO2 pO2 HCO3 ABG pH ABG Total CO2 ABG O2 Saturation ABG O2 Content ABG Base Excess ABG Hemoglobin ABG Carboxyhemoglobin POC ABG HHb (Measured) ABG Methemoglobin ABG O2 Capacity Hgb O2 Saturation FiO2 Sodium Potassium Chloride Carbon Dioxide Anion Gap BUN Creatinine Est GFR ( Amer) Est GFR (Non-Af Amer) POC Glucose (mg/dL) 141 H 166 H 105 Random Glucose Calcium Magnesium Total Bilirubin AST ALT Alkaline Phosphatase Total Creatine Kinase Total Protein Albumin Globulin Albumin/Globulin Ratio 12/09/17 02:57 WBC RBC Hgb Hct MCV MCH MCHC RDW Plt Count MPV Gran % Lymph % (Auto) Dougherty % (Auto) Eos % (Auto) Baso % (Auto) Gran # Lymph # (Auto) Dougherty # (Auto) Eos # (Auto) Baso # (Auto) pCO2 pO2 HCO3 ABG pH ABG Total CO2 ABG O2 Saturation ABG O2 Content ABG Base Excess ABG Hemoglobin ABG Carboxyhemoglobin POC ABG HHb (Measured) ABG Methemoglobin ABG O2 Capacity Hgb O2 Saturation FiO2 Sodium Potassium Chloride Carbon Dioxide Anion Gap BUN Creatinine Est GFR ( Amer) Est GFR (Non-Af Amer) POC Glucose (mg/dL) 107 Random Glucose Calcium Magnesium Total Bilirubin AST ALT Alkaline Phosphatase Total Creatine Kinase Total Protein Albumin Globulin Albumin/Globulin Ratio Assessment & Plan - Assessment and Plan (Free Text) Plan: 62yo male with history of alcohol abuse and bipolar disorder admitted to the ICU with ventilator dependent respiratory failure secondary to delirium tremens/ alcohol withdrawal in the setting of RLL pneumonia 1. Delirium Tremens 2. Alcohol Withdrawal 3. Altered mental status 4. RLL pneumonia 5. Rhabdomyolysis, resolved -Consent for PEG placement obtained from patient's sister Bindu Ashton -PEG tube placement to be done at bedside in the ICU today -Continue protonix for GI prophylaxis -NPO -Cdiff negative -Continue present medical management as per neuro/ICU teams <Kendall Germain - Last Filed: 12/09/17 15:58> Meds - Medications Medications: Current Medications Acetaminophen (Tylenol 650 Mg Supp) 650 mg RC Q6H PRN PRN Reason: Fever >100.4 F Ascorbic Acid (Vitamin C 500 Mg Tab) 500 mg PO DAILY [facility] Last Admin: 12/09/17 10:27 Dose: 500 mg Bacitracin (Bacitracin) 1 ea TOP Q6 PRN PRN Reason: Swelling Last Admin: 11/28/17 09:34 Dose: 1 ea Cyproheptadine HCl (Periactin) 4 mg PO Q8H [facility] Last Admin: 12/09/17 05:28 Dose: 4 mg Docusate Sodium (Colace Liquid) 100 mg PO BID [facility] Last Admin: 12/09/17 09:58 Dose: 100 mg Folic Acid (Folic Acid) 1 mg PO DAILY [facility] Last Admin: 12/09/17 10:01 Dose: 1 mg Heparin Sodium (Porcine) (Heparin) 5,000 units SC Q8 [facility] PRN Reason: Protocol Last Admin: 12/09/17 05:23 Dose: 5,000 units Hydralazine HCl (Apresoline) 10 mg IVP Q6 PRN PRN Reason: give if SBP >160 Last Admin: 12/02/17 12:56 Dose: 10 mg Dexmedetomidine HCl (Precedex 400mcg/100ml) 400 mcg in 100 mls @ 3.629 mls/hr IV .Q24H PRN; Protocol; 0.2 MCG/KG/HR PRN Reason: Agitation Last Admin: 12/09/17 06:08 Dose: 1.5 mcg/kg/hr, 27.216 mls/hr Meropenem 500 mg/ Sodium (Chloride) 100 mls @ 100 mls/hr IVPB Q8 [facility] PRN Reason: Protocol Last Admin: 12/09/17 05:23 Dose: 100 mls/hr Vancomycin HCl (Vancomycin 1gm) 1 gm in 250 mls @ 166.667 mls/hr IVPB Q12H [facility] PRN Reason: Protocol Last Admin: 12/09/17 10:26 Dose: 166.667 mls/hr Propofol (Diprivan) 1,000 mg in 100 mls @ 2.671 mls/hr IV .Q24H PRN; Protocol; 5 MCG/KG/MIN PRN Reason: TITRATE PER MD ORDER Sodium Chloride (Sodium Chloride 0.9%) 1,000 mls @ 100 mls/hr IV .Q10H [facility] Insulin Human Lispro (Humalog Low) 0 units SC Q6H [facility] PRN Reason: Protocol Last Admin: 12/09/17 10:04 Dose: Not Given Levalbuterol HCl (Xopenex) 0.63 mg IH [id number] PRN PRN Reason: Shortness of Breath Last Admin: 12/09/17 14:06 Dose: 0.63 mg Levetiracetam (Keppra) 750 mg PO Q12 [facility] Last Admin: 12/09/17 09:58 Dose: 750 mg Lorazepam (Ativan) 4 mg IVP Q4 PRN; Protocol PRN Reason: Agitation Last Admin: 12/09/17 05:42 Dose: 4 mg Multivitamins/Minerals (Therapeutic-M Tab) 1 tab PO 0800 [facility] Last Admin: 12/09/17 10:06 Dose: 1 tab Pantoprazole Sodium (Protonix Inj) 40 mg IVP DAILY [facility] Last Admin: 12/09/17 09:58 Dose: 40 mg Polyethylene Glycol (Miralax) 17 gm PO BID [facility] Last Admin: 12/09/17 09:58 Dose: 17 gm Propranolol HCl (Inderal) 40 mg PO BID [facility] Last Admin: 12/09/17 10:12 Dose: 40 mg Quetiapine Fumarate (Seroquel) 25 mg PO BID [facility] PRN Reason: Protocol Thiamine HCl (Vitamin B1 Tab) 100 mg PO TID [facility] Last Admin: 12/09/17 10:00 Dose: 100 mg Tobramycin Sulfate (Tobramycin Inj) 0.08 gm IH [id number] [facility] Last Admin: 12/09/17 07:51 Dose: 0.08 gm Valproate Sodium (Depakene Oral Soln) 750 mg PO Q12 [facility] Zinc Sulfate (Zinc Sulfate 220 Mg Cap) 220 mg PO DAILY [facility] Last Admin: 12/09/17 10:28 Dose: 220 mg Results - Vital Signs Recent Vital Signs: Last Vital Signs Temp 99.5 F 12/09/17 00:00 Pulse 67 12/09/17 12:50 Resp 25 H 12/09/17 12:50 BP 139/83 12/09/17 12:50 Pulse Ox 97 12/09/17 12:50 - Labs Result Diagrams: 12/09/17 06:00 12/09/17 06:00 Labs: Laboratory Results - last 24 hr 12/08/17 12/08/17 12/08/17 09:04 14:55 20:52 WBC RBC Hgb Hct MCV MCH MCHC RDW Plt Count MPV Gran % Lymph % (Auto) Dougherty % (Auto) Eos % (Auto) Baso % (Auto) Gran # Lymph # (Auto) Dougherty # (Auto) Eos # (Auto) Baso # (Auto) Sodium Potassium Chloride Carbon Dioxide Anion Gap BUN Creatinine Est GFR ( Amer) Est GFR (Non-Af Amer) POC Glucose (mg/dL) 141 H 166 H 105 Random Glucose Calcium Magnesium Total Bilirubin AST ALT Alkaline Phosphatase Total Creatine Kinase Total Protein Albumin Globulin Albumin/Globulin Ratio 12/09/17 12/09/17 12/09/17 02:57 06:00 06:00 WBC 6.4 D RBC 3.33 L Hgb 9.9 L Hct 30.8 L MCV 92.5 MCH 29.7 MCHC 32.1 RDW 14.0 Plt Count 313 MPV 11.3 H Gran % 80.9 H Lymph % (Auto) 11.0 L Dougherty % (Auto) 5.9 Eos % (Auto) 2.0 Baso % (Auto) 0.2 Gran # 5.20 Lymph # (Auto) 0.7 L Dougherty # (Auto) 0.4 Eos # (Auto) 0.1 Baso # (Auto) 0.01 Sodium 145 Potassium 4.3 Chloride 111 H Carbon Dioxide 25 Anion Gap 14 BUN 10 Creatinine 0.7 L Est GFR ( Amer) > 60 Est GFR (Non-Af Amer) > 60 POC Glucose (mg/dL) 107 Random Glucose 111 H Calcium 8.4 Magnesium 2.1 Total Bilirubin 0.4 AST 53 ALT 81 H Alkaline Phosphatase 56 Total Creatine Kinase 140 Total Protein 5.1 L Albumin 2.7 L Globulin 2.4 Albumin/Globulin Ratio 1.1 12/09/17 12/09/17 09:11 15:21 WBC RBC Hgb Hct MCV MCH MCHC RDW Plt Count MPV Gran % Lymph % (Auto) Dougherty % (Auto) Eos % (Auto) Baso % (Auto) Gran # Lymph # (Auto) Dougherty # (Auto) Eos # (Auto) Baso # (Auto) Sodium Potassium Chloride Carbon Dioxide Anion Gap BUN Creatinine Est GFR ( Amer) Est GFR (Non-Af Amer) POC Glucose (mg/dL) 111 H 105 Random Glucose Calcium Magnesium Total Bilirubin AST ALT Alkaline Phosphatase Total Creatine Kinase Total Protein Albumin Globulin Albumin/Globulin Ratio Attending/Attestation - Attestation I have personally seen and examined this patient.: Yes I have fully participated in the care of the patient.: Yes I have reviewed all pertinent clinical information: Yes Notes (Text): 12/09/17 10:56 62 year old male with history of alcohol abuse and bipolar disorder a/w ventilator dependent respiratory failure 2/2 pneumonia s/p trach, we are consulted for PEG. 1. Altered mental status 2. Alcohol abuse 3. Malnutrition Plan: -plan for PEG today -d/w family who agrees
--- NOTE | 2017-12-09 07:37 | CP.CCUPN ---
<Singh Traore - Last Filed: 12/09/17 11:40> CCU Subjective - Physician Review Subjective (Free Text): Singh Traore PGY1 ICU Note for Dr. Kong Patient was seen and examined in ICU. The patient remains unarousable, and becomes restless off sedation. His tremor have improved but are still present. ROS could not be obtained. Sister Ms. Bindu Ashton ([phone]) called from [place] and states that she has not kept in touch with the patient in 6 years but heard from her sister and mother in [place] that the patient was in the hospital and wanted to check in on him. It was explained to her the plan set forth for the patient and she is in understanding and states that she will be able to give consent moving forward if we are unable to reach the rest of the family in [place]. The only surgical history she is aware of for the patient is a tummy tuck/liposuction that was done in a hospital in [place], [place] around 13 years ago. Later in the day, around 11AM, a shell trim operator came to visit the patient and also asked about his plan. He states that he has not seen the patient in 3 years. He provided us with a number for an aunt (Opal Koch; [phone]) who also lives in [place] and would like to be updated about the patient. CCU Objective - Vital Signs / Intake & Output Vital Signs (Last 4 hours): Vital Signs Pulse 12/09/17 06:00 61 Intake and Output (Last 8hrs): Intake & Output 12/08/17 12/09/17 12/09/17 22:59 06:59 14:59 Intake Total 2586 2898 Output Total 2450 725 Balance 136 2173 Intake: IV 1186 1098 Left Internal Jugular 650 798 precedex 336 Oral 200 Tube Feeding 1200 1800 Output: Urine 1850 725 Urethral (Mackenzie) 1850 725 Stool 600 Other: # Bowel Movements 2 0 - Physical Exam Physical Exam Limitations: Positive for: Altered Mental Status Head: Positive for: Atraumatic, Normocephalic Pupils: Positive for: PERRL, Sluggish Conjunctiva: Positive for: Normal. Negative for: Injected Ears: Positive for: Normal Mouth: Positive for: Normal Teeth, Other (dry oral mucosa, ET/OG tube in place) Pharnyx: Positive for: Normal Nose (External): Positive for: Atraumatic Nose (Internal): Positive for: Normal Inspection Neck: Negative for: JVD Respiratory/Chest: Positive for: Clear to Auscultation, Good Air Exchange, Other (intubated on vent). Negative for: Respiratory Distress, Accessory Muscle Use, Wheezes, Rales, Retracting, Rhonchi, Tachypneic Cardiovascular: Positive for: Normal S1, S2, Tachycardic. Negative for: Murmurs Abdomen: Positive for: Normal Bowel Sounds. Negative for: Tenderness, Distention, Peritoneal Signs, Rebound, Guarding Genitourinary Male: Positive for: Other (mackenzie catheter in place ) Back: Positive for: Normal Inspection. Negative for: Midline Tenderness Upper Extremity: Positive for: Normal Inspection, NORMAL PULSES, Other (resting right arm tremor, rigidity noted). Negative for: Cyanosis, Edema Lower Extremity: Positive for: Normal Inspection, NORMAL PULSES. Negative for: Edema Neurological: Positive for: Other (sedated ). Negative for: GCS=15 Skin: Positive for: Warm, Normal Color, Diaphoretic Psychiatric: Positive for: Other (sedated). Negative for: Alert, Oriented x 3, Normal Insight, Normal Concentration - Medications Active Medications: Active Medications Generic Name Dose Route Start Last Admin Trade Name Freq PRN Reason Stop Dose Admin Acetaminophen 650 mg 12/05/17 12:27 Tylenol 650 Mg Supp RC Q6H PRN Fever >100.4 F Ascorbic Acid 500 mg 11/28/17 11:30 12/08/17 10:29 Vitamin C 500 Mg Tab PO 500 mg DAILY SHIV Administration Bacitracin 1 ea 11/28/17 08:51 11/28/17 09:34 Bacitracin TOP 1 ea Q6 PRN Administration Swelling Cyproheptadine HCl 4 mg 12/05/17 11:15 12/09/17 05:28 Periactin PO 4 mg Q8H SHIV Administration Docusate Sodium 100 mg 12/05/17 18:00 12/08/17 18:41 Colace Liquid PO 100 mg BID SHIV Administration Folic Acid 1 mg 12/01/17 10:15 12/08/17 10:29 Folic Acid PO 1 mg DAILY SHIV Administration Heparin Sodium (Porcine) 5,000 units 12/03/17 08:15 12/09/17 05:23 Heparin SC 5,000 units Q8 SHIV Administration Protocol Hydralazine HCl 10 mg 11/29/17 14:56 12/02/17 12:56 Apresoline IVP 10 mg Q6 PRN Administration give if SBP >160 Dexmedetomidine HCl 400 mcg in 100 mls @ 3.629 mls/hr 11/26/17 09:21 06:08 Precedex 4 Mcg/Ml (100 Ml) IV 1.5 mcg/kg/hr .Q24H PRN 27.216 mls/hr Agitation Administration Protocol 0.2 MCG/KG/HR Meropenem 500 mg/ Sodium 100 mls @ 100 mls/hr 12/04/17 22:00 12/09/17 05:23 Chloride IVPB 100 mls/hr Q8 SHIV Administration Protocol Vancomycin HCl 1 gm in 250 mls @ 166.667 mls/hr 12/08/17 10:26 12/08/17 22:13 Vancomycin 1gm IVPB 166.667 mls/hr Q12H SHIV Administration Protocol Insulin Human Lispro 0 units 11/26/17 09:00 12/09/17 03:00 Humalog Low SC Not Given Q6H SHIV Protocol Levalbuterol HCl 0.63 mg 12/02/17 09:55 12/07/17 13:15 Xopenex IH 0.63 mg [id number] PRN Administration Shortness of Breath Levetiracetam 750 mg 12/04/17 22:00 12/08/17 22:14 Keppra PO 750 mg Q12 SHIV Administration Lorazepam 4 mg 12/08/17 15:11 12/09/17 05:42 Ativan IVP 4 mg Q4 PRN Administration Agitation Protocol Multivitamins/Minerals 1 tab 11/29/17 08:00 12/08/17 08:47 Therapeutic-M Tab PO 1 tab 0800 SHIV Administration Pantoprazole Sodium 40 mg 11/22/17 10:00 12/08/17 10:29 Protonix Inj IVP 40 mg DAILY SHIV Administration Polyethylene Glycol 17 gm 12/05/17 18:00 12/08/17 18:41 Miralax PO 17 gm BID SHIV Administration Propranolol HCl 40 mg 12/05/17 11:00 12/08/17 18:40 Inderal PO 40 mg BID SHIV Administration Thiamine HCl 100 mg 11/28/17 14:00 12/08/17 18:41 Vitamin B1 Tab PO 100 mg TID SHIV Administration Tobramycin Sulfate 0.08 gm 12/05/17 11:00 12/08/17 11:24 Tobramycin Inj IH 0.08 gm [id number] SHIV Administration Valproate Sodium 250 mg 12/05/17 22:00 12/08/17 22:13 Depakene Cap PO 250 mg Q12 SHIV Administration Zinc Sulfate 220 mg 11/28/17 11:30 12/08/17 10:28 Zinc Sulfate 220 Mg Cap PO 220 mg DAILY SHIV Administration - Patient Studies Lab Studies: Lab Studies 12/09/17 12/09/17 12/08/17 Range/Units 06:00 02:57 20:52 WBC 6.4 D (4.5-11.0) 10^3/ul RBC 3.33 L (3.5-6.1) 10^6/uL Hgb 9.9 L (14.0-18.0) g/dL Hct 30.8 L (42.0-52.0) % MCV 92.5 (80.0-105.0) fl MCH 29.7 (25.0-35.0) pg MCHC 32.1 (31.0-37.0) g/dl RDW 14.0 (11.5-14.5) % Plt Count 313 (120.0-450.0) 10^3/uL MPV 11.3 H (7.0-11.0) fl Gran % 80.9 H (50.0-68.0) % Lymph % (Auto) 11.0 L (22.0-35.0) % [place] % (Auto) 5.9 (1.0-6.0) % Eos % (Auto) 2.0 (1.5-5.0) % Baso % (Auto) 0.2 (0.0-3.0) % Gran # 5.20 (1.4-6.5) Lymph # (Auto) 0.7 L (1.2-3.4) [place] # (Auto) 0.4 (0.1-0.6) Eos # (Auto) 0.1 (0.0-0.7) Baso # (Auto) 0.01 (0.0-2.0) K/mm3 Sodium (132-148) mmol/L Potassium (3.6-5.0) mmol/L Chloride (98-107) mmol/L Carbon Dioxide (21-33) mmol/L Anion Gap (10-20) BUN (7-21) mg/dL Creatinine (0.8-1.5) mg/dl Est GFR ( Amer) Est GFR (Non-Af Amer) POC Glucose (mg/dL) 107 105 (65-110) mg/dL Random Glucose (70-110) mg/dL Calcium (8.4-10.5) mg/dL Magnesium (1.7-2.2) mg/dL Total Bilirubin (0.2-1.3) mg/dL AST (17-59) U/L ALT (7-56) U/L Alkaline Phosphatase (38-126) U/L Total Creatine Kinase (35-230) U/L Total Protein (5.8-8.3) g/dL Albumin (3.0-4.8) g/dL Globulin gm/dL Albumin/Globulin Ratio (1.1-1.8) 12/08/17 12/08/17 12/08/17 Range/Units 14:55 09:04 06:30 WBC 4.9 (4.5-11.0) 10^3/ul RBC 3.06 L (3.5-6.1) 10^6/uL Hgb 9.2 L (14.0-18.0) g/dL Hct 28.1 L (42.0-52.0) % MCV 91.8 (80.0-105.0) fl MCH 30.1 (25.0-35.0) pg MCHC 32.7 (31.0-37.0) g/dl RDW 14.1 (11.5-14.5) % Plt Count 287 (120.0-450.0) 10^3/uL MPV 11.0 (7.0-11.0) fl Gran % 76.7 H (50.0-68.0) % Lymph % (Auto) 12.2 L (22.0-35.0) % [place] % (Auto) 8.2 H (1.0-6.0) % Eos % (Auto) 2.7 (1.5-5.0) % Baso % (Auto) 0.2 (0.0-3.0) % Gran # 3.72 (1.4-6.5) Lymph # (Auto) 0.6 L (1.2-3.4) [place] # (Auto) 0.4 (0.1-0.6) Eos # (Auto) 0.1 (0.0-0.7) Baso # (Auto) 0.01 (0.0-2.0) K/mm3 Sodium (132-148) mmol/L Potassium (3.6-5.0) mmol/L Chloride (98-107) mmol/L Carbon Dioxide (21-33) mmol/L Anion Gap (10-20) BUN (7-21) mg/dL Creatinine (0.8-1.5) mg/dl Est GFR ( Amer) Est GFR (Non-Af Amer) POC Glucose (mg/dL) 166 H 141 H (65-110) mg/dL Random Glucose (70-110) mg/dL Calcium (8.4-10.5) mg/dL Magnesium (1.7-2.2) mg/dL Total Bilirubin (0.2-1.3) mg/dL AST (17-59) U/L ALT (7-56) U/L Alkaline Phosphatase (38-126) U/L Total Creatine Kinase (35-230) U/L Total Protein (5.8-8.3) g/dL Albumin (3.0-4.8) g/dL Globulin gm/dL Albumin/Globulin Ratio (1.1-1.8) 12/08/17 Range/Units 06:30 WBC (4.5-11.0) 10^3/ul RBC (3.5-6.1) 10^6/uL Hgb (14.0-18.0) g/dL Hct (42.0-52.0) % MCV (80.0-105.0) fl MCH (25.0-35.0) pg MCHC (31.0-37.0) g/dl RDW (11.5-14.5) % Plt Count (120.0-450.0) 10^3/uL MPV (7.0-11.0) fl Gran % (50.0-68.0) % Lymph % (Auto) (22.0-35.0) % [place] % (Auto) (1.0-6.0) % Eos % (Auto) (1.5-5.0) % Baso % (Auto) (0.0-3.0) % Gran # (1.4-6.5) Lymph # (Auto) (1.2-3.4) [place] # (Auto) (0.1-0.6) Eos # (Auto) (0.0-0.7) Baso # (Auto) (0.0-2.0) K/mm3 Sodium 144 (132-148) mmol/L Potassium 3.4 L (3.6-5.0) mmol/L Chloride 110 H (98-107) mmol/L Carbon Dioxide 27 (21-33) mmol/L Anion Gap 10 (10-20) BUN 8 (7-21) mg/dL Creatinine 0.6 L (0.8-1.5) mg/dl Est GFR ( Amer) > 60 Est GFR (Non-Af Amer) > 60 POC Glucose (mg/dL) (65-110) mg/dL Random Glucose 120 H (70-110) mg/dL Calcium 8.0 L (8.4-10.5) mg/dL Magnesium 2.0 (1.7-2.2) mg/dL Total Bilirubin 0.2 (0.2-1.3) mg/dL AST 42 (17-59) U/L ALT 74 H (7-56) U/L Alkaline Phosphatase 55 (38-126) U/L Total Creatine Kinase 57 (35-230) U/L Total Protein 4.5 L (5.8-8.3) g/dL Albumin 2.2 L (3.0-4.8) g/dL Globulin 2.3 gm/dL Albumin/Globulin Ratio 1.0 L (1.1-1.8) Laboratory Results - last 24 hr 12/08/17 12/08/17 12/08/17 06:30 06:30 09:04 WBC 4.9 RBC 3.06 L Hgb 9.2 L Hct 28.1 L MCV 91.8 MCH 30.1 MCHC 32.7 RDW 14.1 Plt Count 287 MPV 11.0 Gran % 76.7 H Lymph % (Auto) 12.2 L [place] % (Auto) 8.2 H Eos % (Auto) 2.7 Baso % (Auto) 0.2 Gran # 3.72 Lymph # (Auto) 0.6 L [place] # (Auto) 0.4 Eos # (Auto) 0.1 Baso # (Auto) 0.01 Sodium 144 Potassium 3.4 L Chloride 110 H Carbon Dioxide 27 Anion Gap 10 BUN 8 Creatinine 0.6 L Est GFR ( Amer) > 60 Est GFR (Non-Af Amer) > 60 POC Glucose (mg/dL) 141 H Random Glucose 120 H Calcium 8.0 L Magnesium 2.0 Total Bilirubin 0.2 AST 42 ALT 74 H Alkaline Phosphatase 55 Total Creatine Kinase 57 Total Protein 4.5 L Albumin 2.2 L Globulin 2.3 Albumin/Globulin Ratio 1.0 L 12/08/17 12/08/17 12/09/17 14:55 20:52 02:57 WBC RBC Hgb Hct MCV MCH MCHC RDW Plt Count MPV Gran % Lymph % (Auto) [place] % (Auto) Eos % (Auto) Baso % (Auto) Gran # Lymph # (Auto) [place] # (Auto) Eos # (Auto) Baso # (Auto) Sodium Potassium Chloride Carbon Dioxide Anion Gap BUN Creatinine Est GFR ( Amer) Est GFR (Non-Af Amer) POC Glucose (mg/dL) 166 H 105 107 Random Glucose Calcium Magnesium Total Bilirubin AST ALT Alkaline Phosphatase Total Creatine Kinase Total Protein Albumin Globulin Albumin/Globulin Ratio 12/09/17 06:00 WBC 6.4 D RBC 3.33 L Hgb 9.9 L Hct 30.8 L MCV 92.5 MCH 29.7 MCHC 32.1 RDW 14.0 Plt Count 313 MPV 11.3 H Gran % 80.9 H Lymph % (Auto) 11.0 L [place] % (Auto) 5.9 Eos % (Auto) 2.0 Baso % (Auto) 0.2 Gran # 5.20 Lymph # (Auto) 0.7 L [place] # (Auto) 0.4 Eos # (Auto) 0.1 Baso # (Auto) 0.01 Sodium Potassium Chloride Carbon Dioxide Anion Gap BUN Creatinine Est GFR ( Amer) Est GFR (Non-Af Amer) POC Glucose (mg/dL) Random Glucose Calcium Magnesium Total Bilirubin AST ALT Alkaline Phosphatase Total Creatine Kinase Total Protein Albumin Globulin Albumin/Globulin Ratio Fingerstick Blood Sugar Results: 107 Review of Systems - Review of Systems Systems not reviewed;Unavailable: Intubated Critical Care Progress Note - Ventilator Checklist Head of Bed 30 Degrees: Yes Daily Sedation Vacation: Yes Daily Assessment of Readiness to Wean: Yes Daily Spontaneous Breathing Trial: Yes PUD Prophalyxis: Yes DVT Prophylaxis: Yes Oral Care with Chlorhexidine Gluconate {CHG}: Yes - Vent Settings MODE:: PRVC - Extremities/Vascular Does the Patient have a Central Venous Catheter?: Yes Does the Patient need a Central Venous Catheter?: Yes Does the Patient have a Mackenzie Catheter?: Yes Does the Patient need a Mackenzie Catheter?: Yes - Restraints Justification for Restraints: High risk for self extubation, High risk for removing IV access, High risk for harming self - Prophylaxis GI Prophylaxis GI: PPI - Prophylaxis DVT Prophylaxis DVT: Heparin SQ, SCDs Assessment/Plan - Assessment and Plan (Free Text) Assessment: 62yo M with PMHx of Bipolar disorder and ETOH abuse in ICU for DTs 2/2 ETOH withdrawal. Patient initially admitted to psych for suicidal ideation then transferred to in-patient due to severe ETOH withdrawal with DTs requiring high- dose sedation and intubation. Rhabdomyolysis was also noted, but has been improving. CXR showing worsening of RLL consolidation, and patient has been on antibiotics to cover respiratory infections including sinusitis seen on imaging. Patient does not tolerate sedation vacation and has been failing vent weaning trials. Plan: Neuro: - Intubated and sedated on precedex and will add propofol - will continue attempting to wean off sedation daily - Ativan prn to avoid over-sedation - will cont on Propranolol and Cyprohepatadine for tremor, monitor for changes - continue thiamine, folic acid and multivitamin supplements - Neuro consulted- recs appreciated, will consider adding seroquel and increasing depakote - EEG's have been unremarkable so far; repeat EEG yesterday pending read - MRI brain showed persistent b/l maxially, ethomoid and sphoenoid sinusitis w/ mastoid effusions - Keppra 750mg BID and Depakote 250mg BID for seizure precautions - Continue CIWA protocol, seizure precaution, aspiration precaution - Head CT negative for acute pathology Cardio: - HD stable - Maintain MAP> 65mmHg - Hydralazine PRN for BP control - Propranolol started scheduled - continue IVF Pulm: - Intubated- wean as tolerated - Protective lung ventilation strategy, HOB elevated, daily oral care, and aspiration precautions, DVT and GI ppx, as well as daily attempts to wean off vent and sedation - CXR showed RLL Effusion - Xopenex PRN - will cont Meropenem and Linezolid as well as tobramycin inhaled for sinusitis and possible RLL pneumonia - Maintain spO2>90% - on OR schedule for tracheostomy on 12/[address] Hicks GI: - cont OG tube feeds - Thiamine, Folic acid, and MV for ETOH withdrawal and DTs - PPI for GI ppx - GI consulted for PEG placement Heme: - Hgb stable - platelets stable - monitor H/H daily Nephro: - Rhabdomyolysis resolved - Will continue to monitor electrolytes and replace as needed - Continue to monitor I&O - ammonia ordered for AM ID: - Fevers likely 2/2 withdrawals; blood cultures and UA negative so far, but CXR found RLL consolidation; will cont Meropenem, Linezolid and Tobramycin inhaled and monitor fevers - Bacitracin, Zinc, MV and vit C for skin - ID consulted- recs appreciated - PICC line order placed for poor access Psych: - Hx of Bipolar - Psych consulted- recs appreciated - will evaluate once off of sedation - Consent for trach and PICC line obtained by Dr. Velez on 12/05 with family members over phone; consent for PEG will be done by GI team GI ppx: Protonix DVT ppx: Heparin SC and SCDs Diet: Tube feeds Dispo: Will try to wean off of sedation as tolerated. Will trial wean off vent daily. Patient was seen, examined, and discussed with attending, Dr. Dilan Traore PGY1 Pager [phone] <Cooper Kong - Last Filed: 12/09/17 11:52> CCU Objective - Vital Signs / Intake & Output Vital Signs (Last 4 hours): Vital Signs Pulse BP 12/09/17 10:12 77 155/100 H Intake and Output (Last 8hrs): Intake & Output 12/08/17 12/09/17 12/09/17 22:59 06:59 14:59 Intake Total 2586 2898 Output Total 2450 725 Balance 136 2173 Intake: IV 1186 1098 Left Internal Jugular 650 798 precedex 336 Oral 200 Tube Feeding 1200 1800 Output: Urine 1850 725 Urethral (Mackenzie) 1850 725 Stool 600 Other: # Bowel Movements 2 0 - Medications Active Medications: Active Medications Generic Name Dose Route Start Last Admin Trade Name Freq PRN Reason Stop Dose Admin Acetaminophen 650 mg 12/05/17 12:27 Tylenol 650 Mg Supp RC Q6H PRN Fever >100.4 F Ascorbic Acid 500 mg 11/28/17 11:30 12/09/17 10:27 Vitamin C 500 Mg Tab PO 500 mg DAILY SHIV Administration Bacitracin 1 ea 11/28/17 08:51 11/28/17 09:34 Bacitracin TOP 1 ea Q6 PRN Administration Swelling Cyproheptadine HCl 4 mg 12/05/17 11:15 12/09/17 05:28 Periactin PO 4 mg Q8H SHIV Administration Docusate Sodium 100 mg 12/05/17 18:00 12/09/17 09:58 Colace Liquid PO 100 mg BID SHIV Administration Folic Acid 1 mg 12/01/17 10:15 12/09/17 10:01 Folic Acid PO 1 mg DAILY SHIV Administration Heparin Sodium (Porcine) 5,000 units 12/03/17 08:15 12/09/17 05:23 Heparin SC 5,000 units Q8 SHIV Administration Protocol Hydralazine HCl 10 mg 11/29/17 14:56 12/02/17 12:56 Apresoline IVP 10 mg Q6 PRN Administration give if SBP >160 Dexmedetomidine HCl 400 mcg in 100 mls @ 3.629 mls/hr 11/26/17 09:21 06:08 Precedex 4 Mcg/Ml (100 Ml) IV 1.5 mcg/kg/hr .Q24H PRN 27.216 mls/hr Agitation Administration Protocol 0.2 MCG/KG/HR Meropenem 500 mg/ Sodium 100 mls @ 100 mls/hr 12/04/17 22:00 12/09/17 05:23 Chloride IVPB 100 mls/hr Q8 SHIV Administration Protocol Vancomycin HCl 1 gm in 250 mls @ 166.667 mls/hr 12/08/17 10:26 12/09/17 10:26 Vancomycin 1gm IVPB 166.667 mls/hr Q12H SHIV Administration Protocol Propofol 1,000 mg in 100 mls @ 2.671 mls/hr 12/09/17 11:34 Diprivan IV .Q24H PRN TITRATE PER MD ORDER Protocol 5 MCG/KG/MIN Insulin Human Lispro 0 units 11/26/17 09:00 12/09/17 10:04 Humalog Low SC Not Given Q6H SHIV Protocol Levalbuterol HCl 0.63 mg 12/02/17 09:55 12/07/17 13:15 Xopenex IH 0.63 mg [id number] PRN Administration Shortness of Breath Levetiracetam 750 mg 12/04/17 22:00 12/09/17 09:58 Keppra PO 750 mg Q12 SHIV Administration Lorazepam 4 mg 12/08/17 15:11 12/09/17 05:42 Ativan IVP 4 mg Q4 PRN Administration Agitation Protocol Multivitamins/Minerals 1 tab 11/29/17 08:00 12/09/17 10:06 Therapeutic-M Tab PO 1 tab 0800 SHIV Administration Pantoprazole Sodium 40 mg 11/22/17 10:00 12/09/17 09:58 Protonix Inj IVP 40 mg DAILY SHIV Administration Polyethylene Glycol 17 gm 12/05/17 18:00 12/09/17 09:58 Miralax PO 17 gm BID SHIV Administration Propranolol HCl 40 mg 12/05/17 11:00 12/09/17 10:12 Inderal PO 40 mg BID SHIV Administration Quetiapine Fumarate 25 mg 12/09/17 11:45 Seroquel PO BID SHIV Protocol Thiamine HCl 100 mg 11/28/17 14:00 12/09/17 10:00 Vitamin B1 Tab PO 100 mg TID SHIV Administration Tobramycin Sulfate 0.08 gm 12/05/17 11:00 12/09/17 07:51 Tobramycin Inj IH 0.08 gm [id number] SHIV Administration Valproate Sodium 750 mg 12/09/17 22:00 Depakene Oral Soln PO Q12 SHIV Zinc Sulfate 220 mg 11/28/17 11:30 12/09/17 10:28 Zinc Sulfate 220 Mg Cap PO 220 mg DAILY SHIV Administration - Patient Studies Lab Studies: Lab Studies 12/09/17 12/09/17 12/09/17 Range/Units 09:11 06:00 06:00 WBC 6.4 D (4.5-11.0) 10^3/ul RBC 3.33 L (3.5-6.1) 10^6/uL Hgb 9.9 L (14.0-18.0) g/dL Hct 30.8 L (42.0-52.0) % MCV 92.5 (80.0-105.0) fl MCH 29.7 (25.0-35.0) pg MCHC 32.1 (31.0-37.0) g/dl RDW 14.0 (11.5-14.5) % Plt Count 313 (120.0-450.0) 10^3/uL MPV 11.3 H (7.0-11.0) fl Gran % 80.9 H (50.0-68.0) % Lymph % (Auto) 11.0 L (22.0-35.0) % [place] % (Auto) 5.9 (1.0-6.0) % Eos % (Auto) 2.0 (1.5-5.0) % Baso % (Auto) 0.2 (0.0-3.0) % Gran # 5.20 (1.4-6.5) Lymph # (Auto) 0.7 L (1.2-3.4) [place] # (Auto) 0.4 (0.1-0.6) Eos # (Auto) 0.1 (0.0-0.7) Baso # (Auto) 0.01 (0.0-2.0) K/mm3 Sodium 145 (132-148) mmol/L Potassium 4.3 (3.6-5.0) mmol/L Chloride 111 H (98-107) mmol/L Carbon Dioxide 25 (21-33) mmol/L Anion Gap 14 (10-20) BUN 10 (7-21) mg/dL Creatinine 0.7 L (0.8-1.5) mg/dl Est GFR ( Amer) > 60 Est GFR (Non-Af Amer) > 60 POC Glucose (mg/dL) 111 H (65-110) mg/dL Random Glucose 111 H (70-110) mg/dL Calcium 8.4 (8.4-10.5) mg/dL Magnesium 2.1 (1.7-2.2) mg/dL Total Bilirubin 0.4 (0.2-1.3) mg/dL AST 53 (17-59) U/L ALT 81 H (7-56) U/L Alkaline Phosphatase 56 (38-126) U/L Total Creatine Kinase 140 (35-230) U/L Total Protein 5.1 L (5.8-8.3) g/dL Albumin 2.7 L (3.0-4.8) g/dL Globulin 2.4 gm/dL Albumin/Globulin Ratio 1.1 (1.1-1.8) 12/09/17 12/08/17 12/08/17 Range/Units 02:57 20:52 14:55 WBC (4.5-11.0) 10^3/ul RBC (3.5-6.1) 10^6/uL Hgb (14.0-18.0) g/dL Hct (42.0-52.0) % MCV (80.0-105.0) fl MCH (25.0-35.0) pg MCHC (31.0-37.0) g/dl RDW (11.5-14.5) % Plt Count (120.0-450.0) 10^3/uL MPV (7.0-11.0) fl Gran % (50.0-68.0) % Lymph % (Auto) (22.0-35.0) % [place] % (Auto) (1.0-6.0) % Eos % (Auto) (1.5-5.0) % Baso % (Auto) (0.0-3.0) % Gran # (1.4-6.5) Lymph # (Auto) (1.2-3.4) [place] # (Auto) (0.1-0.6) Eos # (Auto) (0.0-0.7) Baso # (Auto) (0.0-2.0) K/mm3 Sodium (132-148) mmol/L Potassium (3.6-5.0) mmol/L Chloride (98-107) mmol/L Carbon Dioxide (21-33) mmol/L Anion Gap (10-20) BUN (7-21) mg/dL Creatinine (0.8-1.5) mg/dl Est GFR ( Amer) Est GFR (Non-Af Amer) POC Glucose (mg/dL) 107 105 166 H (65-110) mg/dL Random Glucose (70-110) mg/dL Calcium (8.4-10.5) mg/dL Magnesium (1.7-2.2) mg/dL Total Bilirubin (0.2-1.3) mg/dL AST (17-59) U/L ALT (7-56) U/L Alkaline Phosphatase (38-126) U/L Total Creatine Kinase (35-230) U/L Total Protein (5.8-8.3) g/dL Albumin (3.0-4.8) g/dL Globulin gm/dL Albumin/Globulin Ratio (1.1-1.8) 12/08/17 Range/Units 09:04 WBC (4.5-11.0) 10^3/ul RBC (3.5-6.1) 10^6/uL Hgb (14.0-18.0) g/dL Hct (42.0-52.0) % MCV (80.0-105.0) fl MCH (25.0-35.0) pg MCHC (31.0-37.0) g/dl RDW (11.5-14.5) % Plt Count (120.0-450.0) 10^3/uL MPV (7.0-11.0) fl Gran % (50.0-68.0) % Lymph % (Auto) (22.0-35.0) % [place] % (Auto) (1.0-6.0) % Eos % (Auto) (1.5-5.0) % Baso % (Auto) (0.0-3.0) % Gran # (1.4-6.5) Lymph # (Auto) (1.2-3.4) [place] # (Auto) (0.1-0.6) Eos # (Auto) (0.0-0.7) Baso # (Auto) (0.0-2.0) K/mm3 Sodium (132-148) mmol/L Potassium (3.6-5.0) mmol/L Chloride (98-107) mmol/L Carbon Dioxide (21-33) mmol/L Anion Gap (10-20) BUN (7-21) mg/dL Creatinine (0.8-1.5) mg/dl Est GFR ( Amer) Est GFR (Non-Af Amer) POC Glucose (mg/dL) 141 H (65-110) mg/dL Random Glucose (70-110) mg/dL Calcium (8.4-10.5) mg/dL Magnesium (1.7-2.2) mg/dL Total Bilirubin (0.2-1.3) mg/dL AST (17-59) U/L ALT (7-56) U/L Alkaline Phosphatase (38-126) U/L Total Creatine Kinase (35-230) U/L Total Protein (5.8-8.3) g/dL Albumin (3.0-4.8) g/dL Globulin gm/dL Albumin/Globulin Ratio (1.1-1.8) Laboratory Results - last 24 hr 12/08/17 12/08/17 12/08/17 09:04 14:55 20:52 WBC RBC Hgb Hct MCV MCH MCHC RDW Plt Count MPV Gran % Lymph % (Auto) [place] % (Auto) Eos % (Auto) Baso % (Auto) Gran # Lymph # (Auto) [place] # (Auto) Eos # (Auto) Baso # (Auto) Sodium Potassium Chloride Carbon Dioxide Anion Gap BUN Creatinine Est GFR ( Amer) Est GFR (Non-Af Amer) POC Glucose (mg/dL) 141 H 166 H 105 Random Glucose Calcium Magnesium Total Bilirubin AST ALT Alkaline Phosphatase Total Creatine Kinase Total Protein Albumin Globulin Albumin/Globulin Ratio 12/09/17 12/09/17 12/09/17 02:57 06:00 06:00 WBC 6.4 D RBC 3.33 L Hgb 9.9 L Hct 30.8 L MCV 92.5 MCH 29.7 MCHC 32.1 RDW 14.0 Plt Count 313 MPV 11.3 H Gran % 80.9 H Lymph % (Auto) 11.0 L [place] % (Auto) 5.9 Eos % (Auto) 2.0 Baso % (Auto) 0.2 Gran # 5.20 Lymph # (Auto) 0.7 L [place] # (Auto) 0.4 Eos # (Auto) 0.1 Baso # (Auto) 0.01 Sodium 145 Potassium 4.3 Chloride 111 H Carbon Dioxide 25 Anion Gap 14 BUN 10 Creatinine 0.7 L Est GFR ( Amer) > 60 Est GFR (Non-Af Amer) > 60 POC Glucose (mg/dL) 107 Random Glucose 111 H Calcium 8.4 Magnesium 2.1 Total Bilirubin 0.4 AST 53 ALT 81 H Alkaline Phosphatase 56 Total Creatine Kinase 140 Total Protein 5.1 L Albumin 2.7 L Globulin 2.4 Albumin/Globulin Ratio 1.1 12/09/17 09:11 WBC RBC Hgb Hct MCV MCH MCHC RDW Plt Count MPV Gran % Lymph % (Auto) [place] % (Auto) Eos % (Auto) Baso % (Auto) Gran # Lymph # (Auto) [place] # (Auto) Eos # (Auto) Baso # (Auto) Sodium Potassium Chloride Carbon Dioxide Anion Gap BUN Creatinine Est GFR ( Amer) Est GFR (Non-Af Amer) POC Glucose (mg/dL) 111 H Random Glucose Calcium Magnesium Total Bilirubin AST ALT Alkaline Phosphatase Total Creatine Kinase Total Protein Albumin Globulin Albumin/Globulin Ratio Assessment/Plan - Assessment and Plan (Free Text) Assessment: Pt seen and examined on rounds with resident, agree with note with following additions/exceptions: 62yo male with PMHx of heavy EtOH abuse a/w EtOH withdrawal, DTs, intubated. Patient with agitation, confusion, once off sedation. Very difficult to wean off ventilator 2/2 poor mental status. Patient becomes agitated, confused once off sedation. On Precedex drip CT head negative. EEG done. Neurology following. MRI brain done which did not show any acute findings. On antibiotics Awaiting Trach/PEG, LTach. Delirium Tremens Alcohol Withdrawal Dehydration AMS Rhabdo, resolved ?Serotonin Syndrome Recommend: - cont with ventilatory support, daily sedation vacation, daily cpap trials - cont with antibiotics as per ID, follow up Procal, cultures - IVF hydration - Thiamine, Folic, MVT - cont with Keppra - repeat EEG - Periactin as per Neuro - Precedex drip - follow up Psych - follow up Neuro - check ammonia level - Feeds - GI ppx - DVT ppx - patient requires LTACH
--- NOTE | 2017-12-09 07:43 | RAD ---
HISTORY: intubated COMPARISON: Portable chest 12/08/2017 FINDINGS: Endotracheal tube and left central venous line are unchanged in position with nasogastric tube identified terminating at the left upper quadrant abdomen. LUNGS: Linear atelectasis and limited patchy density are seen at the right base with the left chest grossly unremarkable. PLEURA: Limited right pleural effusion unchanged. None is seen at the left. No pneumothorax bilaterally. CARDIOVASCULAR: Normal. OSSEOUS STRUCTURES: No significant abnormalities. VISUALIZED UPPER ABDOMEN: Normal. OTHER FINDINGS: None. IMPRESSION: Stable limited right pleural effusion with linear atelectasis and limited patchy density noted at the right base. Left chest remains unremarkable grossly.
[2017-12-09 07:47] LABS: ALB/GLOB RATIO 1.1 (1.1-1.8); ALBUMIN 2.7 g/dL (3.0-4.8); ALT/SGPT 81 U/L (7-56); AST/SGOT 53 U/L (17-59); BLOOD UREA NITROGEN 10 mg/dL (7-21); CALCIUM 8.4 mg/dL (8.4-10.5); GFR AFRICAN-AMERICAN > 60; GFR NON-AFRICAN AMERICAN > 60; MAGNESIUM 2.1 mg/dL (1.7-2.2)
[2017-12-09] MEDS: POLYETHYLENE GLYCOL 3350 17 GM/Dose PACKET PO SCH ×2 (09:58→17:50)
[2017-12-09] MEDS: levETIRAcetam 500 mg/5ml UD cups PO SCH ×2 (09:58→21:03)
[2017-12-09] MEDS: Multivitamin With Minerals Tab PO SCH (10:06)
[2017-12-09] MEDS: Propofol 10 mg/ml 1,000 MG/100 ML VIAL IV PRN ×2 (10:15→20:00)
[2017-12-09] MEDS ORDERED: Propofol 10 mg/ml 1,000 MG/100 ML VIAL ONE (10:17)
[2017-12-09] MEDS: Vancomycin 1gm in NS 250ml 1 GM/250 ML BAG IVPB SCH ×2 (10:26→22:30)
--- NOTE | 2017-12-09 11:33 | CP.PCM.PN ---
Subjective - Date & Time of Evaluation Date of Evaluation: 12/09/17 Time of Evaluation: 10:00 - Subjective Subjective: Neuro progress note: Pt seen and examined at the bedside in ICU. Pt is currently intubated and sedated with Diprivan, precedex and Ativan PRN . His pupils remains reactive to light accommodation. Pt has intact gag and corneal. Pt becomes restless and agitated once weaned from sedation. Moves all extremities. Pt is on bilateral wrist restraints for patient safety. 12 Point ROS unobtainable Objective - Vital Signs/Intake and Output Vital Signs (last 24 hours): Temp Pulse Resp BP Pulse Ox 99.5 F 77 30 H 155/100 H 99 12/09/17 00:00 12/09/17 10:12 12/07/17 07:41 12/09/17 10:12 12/09/17 00:00 Intake and Output: 12/09/17 12/09/17 06:59 18:59 Intake Total 5384 Output Total 3175 Balance 2209 - Medications Medications: Current Medications Acetaminophen (Tylenol 650 Mg Supp) 650 mg RC Q6H PRN PRN Reason: Fever >100.4 F Ascorbic Acid (Vitamin C 500 Mg Tab) 500 mg PO DAILY [facility] Last Admin: 12/09/17 10:27 Dose: 500 mg Bacitracin (Bacitracin) 1 ea TOP Q6 PRN PRN Reason: Swelling Last Admin: 11/28/17 09:34 Dose: 1 ea Cyproheptadine HCl (Periactin) 4 mg PO Q8H [facility] Last Admin: 12/09/17 05:28 Dose: 4 mg Docusate Sodium (Colace Liquid) 100 mg PO BID [facility] Last Admin: 12/09/17 09:58 Dose: 100 mg Folic Acid (Folic Acid) 1 mg PO DAILY [facility] Last Admin: 12/09/17 10:01 Dose: 1 mg Heparin Sodium (Porcine) (Heparin) 5,000 units SC Q8 [facility] PRN Reason: Protocol Last Admin: 12/09/17 05:23 Dose: 5,000 units Hydralazine HCl (Apresoline) 10 mg IVP Q6 PRN PRN Reason: give if SBP >160 Last Admin: 12/02/17 12:56 Dose: 10 mg Dexmedetomidine HCl (Precedex 4 Mcg/Ml (100 Ml)) 400 mcg in 100 mls @ 3.629 mls /hr IV .Q24H PRN; Protocol; 0.2 MCG/KG/HR PRN Reason: Agitation Last Admin: 12/09/17 06:08 Dose: 1.5 mcg/kg/hr, 27.216 mls/hr Meropenem 500 mg/ Sodium (Chloride) 100 mls @ 100 mls/hr IVPB Q8 [facility] PRN Reason: Protocol Last Admin: 12/09/17 05:23 Dose: 100 mls/hr Vancomycin HCl (Vancomycin 1gm) 1 gm in 250 mls @ 166.667 mls/hr IVPB Q12H [facility] PRN Reason: Protocol Last Admin: 12/09/17 10:26 Dose: 166.667 mls/hr Insulin Human Lispro (Humalog Low) 0 units SC Q6H [facility] PRN Reason: Protocol Last Admin: 12/09/17 10:04 Dose: Not Given Levalbuterol HCl (Xopenex) 0.63 mg IH [id number] PRN PRN Reason: Shortness of Breath Last Admin: 12/07/17 13:15 Dose: 0.63 mg Levetiracetam (Keppra) 750 mg PO Q12 [facility] Last Admin: 12/09/17 09:58 Dose: 750 mg Lorazepam (Ativan) 4 mg IVP Q4 PRN; Protocol PRN Reason: Agitation Last Admin: 12/09/17 05:42 Dose: 4 mg Multivitamins/Minerals (Therapeutic-M Tab) 1 tab PO 0800 [facility] Last Admin: 12/09/17 10:06 Dose: 1 tab Pantoprazole Sodium (Protonix Inj) 40 mg IVP DAILY [facility] Last Admin: 12/09/17 09:58 Dose: 40 mg Polyethylene Glycol (Miralax) 17 gm PO BID [facility] Last Admin: 12/09/17 09:58 Dose: 17 gm Propranolol HCl (Inderal) 40 mg PO BID [facility] Last Admin: 12/09/17 10:12 Dose: 40 mg Thiamine HCl (Vitamin B1 Tab) 100 mg PO TID [facility] Last Admin: 12/09/17 10:00 Dose: 100 mg Tobramycin Sulfate (Tobramycin Inj) 0.08 gm IH [id number] [facility] Last Admin: 12/09/17 07:51 Dose: 0.08 gm Valproate Sodium (Depakene Cap) 250 mg PO Q12 [facility] Last Admin: 12/09/17 10:11 Dose: 250 mg Zinc Sulfate (Zinc Sulfate 220 Mg Cap) 220 mg PO DAILY [facility] Last Admin: 12/09/17 10:28 Dose: 220 mg - Labs Labs: 12/09/17 06:00 12/09/17 06:00 PT 16.6 SECONDS (9.4-12.5) H 12/06/17 06:00 INR 1.43 (0.93-1.08) H 12/06/17 06:00 - Constitutional Appears: No Acute Distress - Eye Exam Eye Exam: PERRL Pupil Exam: NORMAL ACCOMODATION - Neurological Exam Neuro motor strength exam: Left Upper Extremity: 5, Right Upper Extremity: 5, Left Lower Extremity: 5, Right Lower Extremity: 5 Assessment and Plan - Assessment and Plan (Free Text) Assessment: 62yo M with PMHx of Bipolar disorder and ETOH abuse in ICU for DTs requiring intubation and sedation with precedex. EEG shows subclinical seizures?, repeat EEG did not show any signs of seizures. - Repeat EEG did not show any sign of seizures seizure, - Increase Depakote to 1000mg x 1, 750mg BID - Cont Keppra to 1000mg Q12 - Start on seroquel 25mg BID - Recommend psychiatry consult regarding recs of continuing patients anti psychiatric medication as patient may be just anxious upon weaning sedation - Seizure precautions - Sedation with precedex, diprivan and ativan as per ICU - Continue antibiotics as per ID - Blood pressure control - Maintain blood sugars 140-180 Case and plan was reviewed and discussed in detail with Dr Rosenberg.
[2017-12-09] MEDS ORDERED: Valproic Acid 250 mg/5 ml UD Cup PO STA (11:43)
--- NOTE | 2017-12-09 13:23 | CP.PCM.PN ---
<Sarkis Fuentes - Last Filed: 12/09/17 13:19> Subjective - Date & Time of Evaluation Date of Evaluation: 12/09/17 Time of Evaluation: 07:30 - Subjective Subjective: Medicine progress note for Dr. Chaparro Hospitalist Service Patient seen and examined at bedside. Patient resting comfortably this morning. Patient remains intubated and sedated. Therefore, ROS unable to be obtained. As of early this morning, the patient was only on Precedex drip, but Propofol was started later in the morning. Objective - Vital Signs/Intake and Output Vital Signs (last 24 hours): Temp Pulse Resp BP Pulse Ox 99.5 F 77 22 155/100 H 98 12/09/17 00:00 12/09/17 10:12 12/09/17 07:50 12/09/17 10:12 12/09/17 07:50 Intake and Output: 12/09/17 12/09/17 06:59 18:59 Intake Total 5384 Output Total 3175 Balance 2209 - Medications Medications: Current Medications Acetaminophen (Tylenol 650 Mg Supp) 650 mg RC Q6H PRN PRN Reason: Fever >100.4 F Ascorbic Acid (Vitamin C 500 Mg Tab) 500 mg PO DAILY [facility] Last Admin: 12/09/17 10:27 Dose: 500 mg Bacitracin (Bacitracin) 1 ea TOP Q6 PRN PRN Reason: Swelling Last Admin: 11/28/17 09:34 Dose: 1 ea Cyproheptadine HCl (Periactin) 4 mg PO Q8H [facility] Last Admin: 12/09/17 05:28 Dose: 4 mg Docusate Sodium (Colace Liquid) 100 mg PO BID [facility] Last Admin: 12/09/17 09:58 Dose: 100 mg Folic Acid (Folic Acid) 1 mg PO DAILY [facility] Last Admin: 12/09/17 10:01 Dose: 1 mg Heparin Sodium (Porcine) (Heparin) 5,000 units SC Q8 [facility] PRN Reason: Protocol Last Admin: 12/09/17 05:23 Dose: 5,000 units Hydralazine HCl (Apresoline) 10 mg IVP Q6 PRN PRN Reason: give if SBP >160 Last Admin: 12/02/17 12:56 Dose: 10 mg Dexmedetomidine HCl (Precedex 4 Mcg/Ml (100 Ml)) 400 mcg in 100 mls @ 3.629 mls /hr IV .Q24H PRN; Protocol; 0.2 MCG/KG/HR PRN Reason: Agitation Last Admin: 12/09/17 06:08 Dose: 1.5 mcg/kg/hr, 27.216 mls/hr Meropenem 500 mg/ Sodium (Chloride) 100 mls @ 100 mls/hr IVPB Q8 [facility] PRN Reason: Protocol Last Admin: 12/09/17 05:23 Dose: 100 mls/hr Vancomycin HCl (Vancomycin 1gm) 1 gm in 250 mls @ 166.667 mls/hr IVPB Q12H [facility] PRN Reason: Protocol Last Admin: 12/09/17 10:26 Dose: 166.667 mls/hr Propofol (Diprivan) 1,000 mg in 100 mls @ 2.671 mls/hr IV .Q24H PRN; Protocol; 5 MCG/KG/MIN PRN Reason: TITRATE PER MD ORDER Sodium Chloride (Sodium Chloride 0.9%) 1,000 mls @ 100 mls/hr IV .Q10H [facility] Insulin Human Lispro (Humalog Low) 0 units SC Q6H [facility] PRN Reason: Protocol Last Admin: 12/09/17 10:04 Dose: Not Given Levalbuterol HCl (Xopenex) 0.63 mg IH [id number] PRN PRN Reason: Shortness of Breath Last Admin: 12/07/17 13:15 Dose: 0.63 mg Levetiracetam (Keppra) 750 mg PO Q12 [facility] Last Admin: 12/09/17 09:58 Dose: 750 mg Lorazepam (Ativan) 4 mg IVP Q4 PRN; Protocol PRN Reason: Agitation Last Admin: 12/09/17 05:42 Dose: 4 mg Multivitamins/Minerals (Therapeutic-M Tab) 1 tab PO 0800 [facility] Last Admin: 12/09/17 10:06 Dose: 1 tab Pantoprazole Sodium (Protonix Inj) 40 mg IVP DAILY [facility] Last Admin: 12/09/17 09:58 Dose: 40 mg Polyethylene Glycol (Miralax) 17 gm PO BID [facility] Last Admin: 12/09/17 09:58 Dose: 17 gm Propranolol HCl (Inderal) 40 mg PO BID [facility] Last Admin: 12/09/17 10:12 Dose: 40 mg Quetiapine Fumarate (Seroquel) 25 mg PO BID [facility] PRN Reason: Protocol Thiamine HCl (Vitamin B1 Tab) 100 mg PO TID [facility] Last Admin: 12/09/17 10:00 Dose: 100 mg Tobramycin Sulfate (Tobramycin Inj) 0.08 gm IH [id number] [facility] Last Admin: 12/09/17 07:51 Dose: 0.08 gm Valproate Sodium (Depakene Oral Soln) 750 mg PO Q12 [facility] Zinc Sulfate (Zinc Sulfate 220 Mg Cap) 220 mg PO DAILY [facility] Last Admin: 12/09/17 10:28 Dose: 220 mg - Labs Labs: 12/09/17 06:00 12/09/17 06:00 PT 16.6 SECONDS (9.4-12.5) H 12/06/17 06:00 INR 1.43 (0.93-1.08) H 12/06/17 06:00 - Constitutional Appears: Chronically Ill - Head Exam Head Exam: ATRAUMATIC, NORMOCEPHALIC - Eye Exam Eye Exam: Normal appearance - ENT Exam ENT Exam: Mucous Membranes Moist - Respiratory Exam Respiratory Exam: Clear to Ausculation Bilateral, NORMAL BREATHING PATTERN. absent: Rales, Rhonchi, Wheezes Additional comments: On mechanical ventilation 50% FiO2, PEEP 5, Tidal Volume 400, Respiratory rate 18 - Cardiovascular Exam Cardiovascular Exam: REGULAR RHYTHM, +S1, +S2 - GI/Abdominal Exam GI & Abdominal Exam: Soft. absent: Distended, Rigid, Tenderness - Extremities Exam Extremities Exam: absent: Pedal Edema Additional comments: Blisters on right hand - Neurological Exam Neurological Exam: Altered - Skin Skin Exam: Warm Assessment and Plan - Assessment and Plan (Free Text) Assessment: 62 year old male with PMHx of Bipolar disorder and ETOH abuse in ICU for DTs. Patient initially admitted to psych for suicidal ideation then transferred to in -patient due to severe ETOH withdrawal with DTs requiring high-dose sedation and intubation. Subclinical seizure noted on EEG performed on 11/30/17. Fevers likely due to DTs versus developing RLL consolidation and pleural effusion seen on CXR. Repeat EEG showing artifact likely from hand tremors. Patient's sister Bindu Ashton ([phone]) was able to get in touch with the critical care team and advocate for PEG placement, and she will be the healthcare proxy from this point forward. Plan: 1. ETOH withdrawal with Delirium Tremens - Intubated and sedated currently on precedex and diprivan - Neuro consulted- recs appreciated - Continue CIWA protocol, seizure precaution, aspiration precaution - Ativan 4 mg IV prn agitation - Head CT negative for acute pathology - EEG with subclinical seizure seen; neurology recommends repeat EEG - IV Depakote and Keppra on board for seizure prophylaxis and mood stabilization - MRI brain showed persistent bilateral maxially, ethomoid and sphoenoid sinusitis with mastoid effusions - Plan for PEG later today per GI 2. Altered Mental Status, currently being sedated for DT's - CT head was unremarkable - thiamine increased to protect against encephalopathy - EEG with subclinical seizure seen however repeat EEG does not show this. It shows artifact likely caused by patient's hand tremors. - Per neurology, agitation possibly manifestation of patient's psychiatric illnesses. Seroquel was started and mood stabilizers were increased in dosages. 3. Right lower lobe consolidations secondary to HCAP - Seen on CXR and worsening, with pleural effusion as well - Possible pneumonia with pleural effusion versus atelectasis - Treated with Merrem and Vancomycin 4. Sinusitis - seen on MRI - Continue to treat with Inhaled Tobramycin 5. Blisters on hands - Multivitamin, vit C and Zinc added - Bacitracin ointment to be applied 6. Rhabdomyolysis - likely secondary to DT's - renal function has not been affected - CPK markedly elevated but is now downtrending - will monitor 7. Fever, suspected due to pneumonia - Possibly secondary to ETOH withdrawals - ID consult, appreciate recs - Currently afebrile - Follow up septic workup - negative Lower Extremity ultrasound - no vegetations seen on echo -Remeron as a cause of possible serotonin syndrome; cyproheptadine and propranolol started 8. Electrolyte imbalance - monitor and replete as needed 9. Transaminitis Due to chronic alcohol abuse, will discuss alcohol cessation with patient once no longer sedated. 10. Prophylaxis - SCDs - Aspiration precautions - Seizure precautions - Heparin SC - Protonix Disposition: Remains intubated for now. MRI shows sinusitis, so inhaled Tobramycin was started. Developing RLL consolidation seen. Possible pneumonia with effusion versus atelectasis. Treating for pneumonia as likely source of fever. Continue to attempt weaning off of ventilation support. For PEG tube placement with GI later today. Confirmed trach placement on with Dr. Hicks. Will ultimately need LTACH. Discussed and seen with Dr. Chaparro <Charlotte Chaparro - Last Filed: 12/09/17 18:04> Objective - Vital Signs/Intake and Output Vital Signs (last 24 hours): Temp Pulse Resp BP Pulse Ox 99.5 F 67 25 H 139/83 97 12/09/17 00:00 12/09/17 12:50 12/09/17 12:50 12/09/17 12:50 12/09/17 12:50 Intake and Output: 12/09/17 12/09/17 06:59 18:59 Intake Total 5384 100 Output Total 3175 Balance 2209 100 - Medications Medications: Current Medications Acetaminophen (Tylenol 650 Mg Supp) 650 mg RC Q6H PRN PRN Reason: Fever >100.4 F Ascorbic Acid (Vitamin C 500 Mg Tab) 500 mg PO DAILY [facility] Last Admin: 12/09/17 10:27 Dose: 500 mg Bacitracin (Bacitracin) 1 ea TOP Q6 PRN PRN Reason: Swelling Last Admin: 11/28/17 09:34 Dose: 1 ea Cyproheptadine HCl (Periactin) 4 mg PO Q8H [facility] Last Admin: 12/09/17 10:40 Dose: 4 mg Docusate Sodium (Colace Liquid) 100 mg PO BID [facility] Last Admin: 12/09/17 09:58 Dose: 100 mg Folic Acid (Folic Acid) 1 mg PO DAILY [facility] Last Admin: 12/09/17 10:01 Dose: 1 mg Heparin Sodium (Porcine) (Heparin) 5,000 units SC Q8 [facility] PRN Reason: Protocol Last Admin: 12/09/17 05:23 Dose: 5,000 units Hydralazine HCl (Apresoline) 10 mg IVP Q6 PRN PRN Reason: give if SBP >160 Last Admin: 12/02/17 12:56 Dose: 10 mg Dexmedetomidine HCl (Precedex 400mcg/100ml) 400 mcg in 100 mls @ 3.629 mls/hr IV .Q24H PRN; Protocol; 0.2 MCG/KG/HR PRN Reason: Agitation Last Admin: 12/09/17 17:08 Dose: 0.7 mcg/kg/hr, 12.701 mls/hr Meropenem 500 mg/ Sodium (Chloride) 100 mls @ 100 mls/hr IVPB Q8 [facility] PRN Reason: Protocol Last Admin: 12/09/17 05:23 Dose: 100 mls/hr Vancomycin HCl (Vancomycin 1gm) 1 gm in 250 mls @ 166.667 mls/hr IVPB Q12H [facility] PRN Reason: Protocol Last Admin: 12/09/17 10:26 Dose: 166.667 mls/hr Propofol (Diprivan) 1,000 mg in 100 mls @ 2.671 mls/hr IV .Q24H PRN; Protocol; 5 MCG/KG/MIN PRN Reason: TITRATE PER MD ORDER Sodium Chloride (Sodium Chloride 0.9%) 1,000 mls @ 100 mls/hr IV .Q10H [facility] Last Admin: 12/09/17 17:16 Dose: 100 mls/hr Insulin Human Lispro (Humalog Low) 0 units SC Q6H [facility] PRN Reason: Protocol Last Admin: 12/09/17 10:04 Dose: Not Given Levalbuterol HCl (Xopenex) 0.63 mg IH [id number] PRN PRN Reason: Shortness of Breath Last Admin: 12/09/17 14:06 Dose: 0.63 mg Levetiracetam (Keppra) 750 mg PO Q12 [facility] Last Admin: 12/09/17 09:58 Dose: 750 mg Lorazepam (Ativan) 4 mg IVP Q4 PRN; Protocol PRN Reason: Agitation Last Admin: 12/09/17 05:42 Dose: 4 mg Multivitamins/Minerals (Therapeutic-M Tab) 1 tab PO 0800 [facility] Last Admin: 12/09/17 10:06 Dose: 1 tab Pantoprazole Sodium (Protonix Inj) 40 mg IVP DAILY [facility] Last Admin: 12/09/17 09:58 Dose: 40 mg Polyethylene Glycol (Miralax) 17 gm PO BID [facility] Last Admin: 12/09/17 09:58 Dose: 17 gm Propranolol HCl (Inderal) 40 mg PO BID [facility] Last Admin: 12/09/17 10:12 Dose: 40 mg Quetiapine Fumarate (Seroquel) 25 mg PO BID [facility] PRN Reason: Protocol Thiamine HCl (Vitamin B1 Tab) 100 mg PO TID [facility] Last Admin: 12/09/17 15:00 Dose: 100 mg Tobramycin Sulfate (Tobramycin Inj) 0.08 gm IH [id number] [facility] Last Admin: 12/09/17 07:51 Dose: 0.08 gm Valproate Sodium (Depakene Oral Soln) 750 mg PO Q12 [facility] Zinc Sulfate (Zinc Sulfate 220 Mg Cap) 220 mg PO DAILY [facility] Last Admin: 12/09/17 10:28 Dose: 220 mg - Labs Labs: 12/09/17 06:00 12/09/17 06:00 PT 16.6 SECONDS (9.4-12.5) H 12/06/17 06:00 INR 1.43 (0.93-1.08) H 12/06/17 06:00 Attending/Attestation - Attestation I have personally seen and examined this patient.: Yes I have fully participated in the care of the patient.: Yes I have reviewed all pertinent clinical information, including history, physical exam and plan: Yes Notes (Text): 12/09/17 18:01 attending note; Patient seen and examined with the resident in ICU. patient is a 62 year old male with history of bipolar disorder and chronic alcohol abuse is admitted for alcohol withdrawal and delirium tremens. Currently intubated. Plan for PEG placement today. Feeds on hold. case discussed with GI in detail. Unsuccessful weaning trial. Continue ventilator support. Possible trach On . Pneumonia; CXR reveals RLL consolidation. Patient is on Meropenem, vancomycin and tobramycin. UDS negative. Echo did not reveal any vegetation. will complete 7-[address] head was negative. Will continue Ativan. EEG revealed subclinical seizure on ra. Plan to repeat EEG. He was on remeron previously so there was a concern of possible serotonin syndrome therefore cyproheptadine was started. Transaminitis; resolved. case discussed with social work supervisor in detail for discharge planning. Paperwork completed. patient requires LTAC placement. Monitor closely in ICU.
[2017-12-09] MEDS: Levalbuterol 0.63 MG/3 ML Inhal Soln UD IH PRN ×2 (14:06→19:53)
[2017-12-09] MEDS: Sodium Chloride 0.9% 1,000 ML IV SCH (17:16)
--- NOTE | 2017-12-09 18:22 | CP.PCM.PN ---
Subjective - Date & Time of Evaluation Date of Evaluation: 12/09/17 Time of Evaluation: 16:00 - Subjective Subjective: Infectious Disease Follow Up: December 09, 2017 62 yo male with medical history that includes Bipolar disorder and alcohol abuse presented with EtOH intoxication and now in withdrawals. Originally in the psych floor for bipolar disease treatment and suicidal ideation on 11/21/2017. The patient required intubation. ID called for possible aspiration pneumonia. No fevers, leukocytosis at this time. Remains intubated. Still no fevers or leukocytosis. Remains sedated. Noted blistered skin on right hand that slightly improved. Persistent fevers up to 102.0 F in the past 24 hours but appears to be downtrending. Still no leukocytosis. Cultures from 11/30/2017 negative. New cultures sent 12/01-. Multiple blisters on the right hand. Fluid filler and dark in color. Patient highly agitated on attempts to wean sedation. Would obtain fluid from blisters for culture. Would consider CT of chest/ abdomen/pelvis. Continue on meropenem for antibiotic coverage at this point. Also on inhaled tobramycin and IV Zyvox. No new issues. Difficult extubation. Patient severely agitated when taken off sedation. Tremors present and more pronounced when off sedation. Currently afebrile but still with diaphoresis. The patient an episode of temperature as low as 93.2 F three mornings ago but no further episodes since. Mentally no improvement. Chest X-ray still with patchy infiltrate in right lung and atelectasis. Objective - Vital Signs/Intake and Output Vital Signs (last 24 hours): Temp Pulse Resp BP Pulse Ox 99.5 F 91 H 25 H 154/78 H 97 12/09/17 00:00 12/09/17 17:50 12/09/17 12:50 12/09/17 17:50 12/09/17 12:50 Intake and Output: 12/09/17 12/09/17 06:59 18:59 Intake Total 5384 100 Output Total 3175 Balance 2209 100 - Medications Medications: Current Medications Acetaminophen (Tylenol 650 Mg Supp) 650 mg RC Q6H PRN PRN Reason: Fever >100.4 F Ascorbic Acid (Vitamin C 500 Mg Tab) 500 mg PO DAILY SHIV Last Admin: 12/09/17 10:27 Dose: 500 mg Bacitracin (Bacitracin) 1 ea TOP Q6 PRN PRN Reason: Swelling Last Admin: 11/28/17 09:34 Dose: 1 ea Cyproheptadine HCl (Periactin) 4 mg PO Q8H [facility] Last Admin: 12/09/17 10:40 Dose: 4 mg Docusate Sodium (Colace Liquid) 100 mg PO BID [facility] Last Admin: 12/09/17 17:50 Dose: 100 mg Folic Acid (Folic Acid) 1 mg PO DAILY [facility] Last Admin: 12/09/17 10:01 Dose: 1 mg Heparin Sodium (Porcine) (Heparin) 5,000 units SC Q8 [facility] PRN Reason: Protocol Last Admin: 12/09/17 05:23 Dose: 5,000 units Hydralazine HCl (Apresoline) 10 mg IVP Q6 PRN PRN Reason: give if SBP >160 Last Admin: 12/02/17 12:56 Dose: 10 mg Dexmedetomidine HCl (Precedex 400mcg/100ml) 400 mcg in 100 mls @ 3.629 mls/hr IV .Q24H PRN; Protocol; 0.2 MCG/KG/HR PRN Reason: Agitation Last Admin: 12/09/17 17:08 Dose: 0.7 mcg/kg/hr, 12.701 mls/hr Meropenem 500 mg/ Sodium (Chloride) 100 mls @ 100 mls/hr IVPB Q8 [facility] PRN Reason: Protocol Last Admin: 12/09/17 15:00 Dose: 100 mls/hr Vancomycin HCl (Vancomycin 1gm) 1 gm in 250 mls @ 166.667 mls/hr IVPB Q12H [facility] PRN Reason: Protocol Last Admin: 12/09/17 10:26 Dose: 166.667 mls/hr Propofol (Diprivan) 1,000 mg in 100 mls @ 2.671 mls/hr IV .Q24H PRN; Protocol; 5 MCG/KG/MIN PRN Reason: TITRATE PER MD ORDER Last Admin: 12/09/17 10:15 Dose: 10 mcg/kg/min, 5.342 mls/hr Sodium Chloride (Sodium Chloride 0.9%) 1,000 mls @ 100 mls/hr IV .Q10H [facility] Last Admin: 12/09/17 17:16 Dose: 100 mls/hr Insulin Human Lispro (Humalog Low) 0 units SC Q6H [facility] PRN Reason: Protocol Last Admin: 12/09/17 10:04 Dose: Not Given Levalbuterol HCl (Xopenex) 0.63 mg IH [id number] PRN PRN Reason: Shortness of Breath Last Admin: 12/09/17 14:06 Dose: 0.63 mg Levetiracetam (Keppra) 750 mg PO Q12 [facility] Last Admin: 12/09/17 09:58 Dose: 750 mg Lorazepam (Ativan) 4 mg IVP Q4 PRN; Protocol PRN Reason: Agitation Last Admin: 12/09/17 05:42 Dose: 4 mg Multivitamins/Minerals (Therapeutic-M Tab) 1 tab PO 0800 [facility] Last Admin: 12/09/17 10:06 Dose: 1 tab Pantoprazole Sodium (Protonix Inj) 40 mg IVP DAILY [facility] Last Admin: 12/09/17 09:58 Dose: 40 mg Polyethylene Glycol (Miralax) 17 gm PO BID [facility] Last Admin: 12/09/17 17:50 Dose: 17 gm Propranolol HCl (Inderal) 40 mg PO BID [facility] Last Admin: 12/09/17 17:50 Dose: 40 mg Quetiapine Fumarate (Seroquel) 25 mg PO BID [facility] PRN Reason: Protocol Thiamine HCl (Vitamin B1 Tab) 100 mg PO TID [facility] Last Admin: 12/09/17 15:00 Dose: 100 mg Tobramycin Sulfate (Tobramycin Inj) 0.08 gm IH [id number] [facility] Last Admin: 12/09/17 07:51 Dose: 0.08 gm Valproate Sodium (Depakene Oral Soln) 750 mg PO Q12 [facility] Zinc Sulfate (Zinc Sulfate 220 Mg Cap) 220 mg PO DAILY [facility] Last Admin: 12/09/17 10:28 Dose: 220 mg - Labs Labs: 12/09/17 06:00 12/09/17 06:00 PT 16.6 SECONDS (9.4-12.5) H 12/06/17 06:00 INR 1.43 (0.93-1.08) H 12/06/17 06:00 - Constitutional Appears: Chronically Ill - Head Exam Additional comments: intubated and ventilated. - Eye Exam Eye Exam: EOMI, PERRL Pupil Exam: NORMAL ACCOMODATION, PERRL - ENT Exam ENT Exam: Mucous Membranes Moist, Normal External Ear Exam, TM's Normal Bilaterally - Neck Exam Neck Exam: Full ROM, Normal Inspection - Respiratory Exam Respiratory Exam: Clear to Ausculation Bilateral, NORMAL BREATHING PATTERN. absent: Rales, Rhonchi, Wheezes - Cardiovascular Exam Cardiovascular Exam: REGULAR RHYTHM, RRR, +S1, +S2 - GI/Abdominal Exam GI & Abdominal Exam: Soft, Normal Bowel Sounds. absent: Distended, Tenderness - Extremities Exam Extremities Exam: Full ROM, Joint Swelling, Pedal Edema - Neurological Exam Neurological Exam: Altered Additional comments: intubated and ventilated... poorly responsive. - Psychiatric Exam Additional comments: Altered, poorly responsive. - Skin Skin Exam: Intact, Normal Color Assessment and Plan - Assessment and Plan (Free Text) Assessment: 62 yo male with EtOH abuse. Developed EtOH withdrawal and now required intubation and ventilation. The patient was being evaluated by ID for potential aspiration. The patient is currently on Cefepime and Vancomycin. If aspiration is a significant concern, would either add Flagyl IV or switch Cefepime to Meropenem or Zosyn. Febrile several days ago up to 102 F. Afebrile the last few days. No leukocytosis. No findings on Chest X-ray. Supportive care. Procalcitonin is 0.14 which is low. Noted procalcitonin repeated multiple times and all showing low values. Suggests strongly against bacterial causes but does not rule out viral. More likely secondary to the EtOH withdrawal and Delirium Tremens. Case discussed with team. Difficult extubation/wean from ventilation. Agitation when off sedation. 11/30/2017 cultures negative so far. 12/01/2017 cultures pending. Chest X-ray suggesting HCAP. Antibiotics continues on Zyvox and Meropenem. On inhaled Tobramycin. For now the patient has remained afebrile but appears to have an uprising trend again... afebrile today. Supportive care. Consider up to 14 days of antibiotics. Thank you for allowing me to participate in the care of the patient, we will follow with you.
[2017-12-09] MEDS: Valproic Acid 250 mg/5 ml UD Cup PO SCH (21:02)
--- NOTE | 2017-12-10 02:26 | CARD ---
APPROVED REPORT EKG Measurement Heart [id number] <Conclusion> Sinus rhythm with occasional premature ventricular complexes Prolonged QT Abnormal ECG
[2017-12-10] MEDS: Propofol 10 mg/ml 1,000 MG/100 ML VIAL IV PRN ×3 (02:48→20:04)
[2017-12-10] MEDS: Dexmedetomidine 400mcg/100mL 400 MCG/100 ML BOTTLE IV PRN ×4 (02:51→22:28)
[2017-12-10] MEDS: Insulin Lispro (humaLOG) LOW Coverage SC SCH ×4 (06:24→22:28)
[2017-12-10] MEDS: Meropenem 500 MG in Sodium Chloride 0.9% 100 ML IVPB SCH ×3 (06:48→21:51)
[2017-12-10] MEDS: Sodium Chloride 0.9% 1,000 ML IV SCH (07:09)
[2017-12-10 07:12] LABS: BASO # 0.01 K/mm3 (0.0-2.0); BASO % 0.2 % (0.0-3.0); EOS # 0.2 (0.0-0.7); EOS % 3.8 % (1.5-5.0); GRAN # 3.09 (1.4-6.5); GRAN % 72.9 % (50.0-68.0); HEMOGLOBIN 9.3 g/dL (14.0-18.0); LYMPH # 0.6 (1.2-3.4); LYMPH % 13.4 % (22.0-35.0); MEAN CELL VOLUME 91.7 fl (80.0-105.0); MEAN CORPUSCULAR HEMOGLOBIN 29.8 pg (25.0-35.0); MEAN CORPUSCULAR HGB CONC 32.5 g/dl (31.0-37.0); MEAN PLATELET VOLUME 9.9 fl (7.0-11.0); MONO # 0.4 (0.1-0.6); MONO % 9.7 % (1.0-6.0); RBC 3.12 10^6/uL (3.5-6.1); RED CELL DISTRIBUTION WIDTH 14.1 % (11.5-14.5); WHITE BLOOD COUNT 4.2 10^3/ul (4.5-11.0)
[2017-12-10 07:29] LABS: INR 1.33 (0.93-1.08); PROTHROMBIN TIME 15.4 SECONDS (9.4-12.5)
[2017-12-10 07:35] LABS: ALBUMIN 2.3 g/dL (3.0-4.8); ALT/SGPT 58 U/L (7-56); AST/SGOT 31 U/L (17-59); BLOOD UREA NITROGEN 8 mg/dL (7-21); CALCIUM 8.2 mg/dL (8.4-10.5); GFR AFRICAN-AMERICAN > 60; GFR NON-AFRICAN AMERICAN > 60; MAGNESIUM 2.1 mg/dL (1.7-2.2)
[2017-12-10] MEDS ORDERED: Potassium Chloride 40 mEq/30 ml LIQ UD PO ONE (07:36)
--- NOTE | 2017-12-10 07:40 | CP.CCUPN ---
<Singh Traore - Last Filed: 12/10/17 11:41> CCU Subjective - Physician Review Subjective (Free Text): Singh Traore PGY1 ICU Note for Dr. Kong Patient was seen and examined in ICU. There was no acute overnight events or any changes in mental state. ROS could not be obtained due to AMS. CCU Objective - Vital Signs / Intake & Output Vital Signs (Last 4 hours): Vital Signs Temp Pulse BP Pulse Ox 12/10/17 07:10 55 L 12/10/17 07:00 55 L 120/69 96 12/10/17 06:00 56 L 119/79 99 12/10/17 05:21 63 12/10/17 05:15 60 12/10/17 05:12 69 12/10/17 05:11 69 12/10/17 05:10 69 12/10/17 05:09 71 12/10/17 05:00 55 L 122/74 98 12/10/17 04:00 98.1 F 58 L 117/71 97 Intake and Output (Last 8hrs): Intake & Output 12/09/17 12/10/17 12/10/17 22:59 06:59 14:59 Intake Total 1135 200 100 Output Total 1450 Balance -315 200 100 Intake: IV 835 200 100 Left Internal Jugular 650 Tube Feeding 300 Output: Urine 1450 Urethral (Mackenzie) 1450 - Physical Exam Physical Exam Limitations: Positive for: Altered Mental Status Head: Positive for: Atraumatic, Normocephalic Pupils: Positive for: PERRL, Sluggish Extroacular Muscles: Positive for: EOMI Conjunctiva: Positive for: Normal. Negative for: Injected Ears: Positive for: Normal Mouth: Positive for: Normal Teeth, Other (dry oral mucosa, ET/OG tube in place) Pharnyx: Positive for: Normal Nose (External): Positive for: Atraumatic Nose (Internal): Positive for: Normal Inspection Neck: Negative for: JVD Respiratory/Chest: Positive for: Clear to Auscultation, Good Air Exchange, Other (intubated on vent). Negative for: Respiratory Distress, Accessory Muscle Use, Wheezes, Rales, Retracting, Rhonchi, Tachypneic Cardiovascular: Positive for: Normal S1, S2, Tachycardic. Negative for: Murmurs Abdomen: Positive for: Normal Bowel Sounds, Feeding Tubes, Ostomy Tubes (PEG tube ). Negative for: Tenderness, Distention, Peritoneal Signs, Rebound, Guarding Genitourinary Male: Positive for: Other (mackenzie catheter in place ) Back: Positive for: Normal Inspection. Negative for: Midline Tenderness Upper Extremity: Positive for: Normal Inspection, NORMAL PULSES, Other (resting right arm tremor, rigidity noted). Negative for: Cyanosis, Edema Lower Extremity: Positive for: Normal Inspection, NORMAL PULSES. Negative for: Edema Neurological: Positive for: Other (sedated ). Negative for: GCS=15 Skin: Positive for: Warm, Normal Color, Diaphoretic Psychiatric: Positive for: Other (sedated). Negative for: Alert, Oriented x 3, Normal Insight, Normal Concentration - Medications Active Medications: Active Medications Generic Name Dose Route Start Last Admin Trade Name Freq PRN Reason Stop Dose Admin Acetaminophen 650 mg 12/05/17 12:27 Tylenol 650 Mg Supp RC Q6H PRN Fever >100.4 F Ascorbic Acid 500 mg 11/28/17 11:30 12/09/17 10:27 Vitamin C 500 Mg Tab PO 500 mg DAILY SHIV Administration Bacitracin 1 ea 11/28/17 08:51 11/28/17 09:34 Bacitracin TOP 1 ea Q6 PRN Administration Swelling Cyproheptadine HCl 4 mg 12/05/17 11:15 12/10/17 06:47 Periactin PO 4 mg Q8H SHIV Administration Docusate Sodium 100 mg 12/05/17 18:00 12/09/17 17:50 Colace Liquid PO 100 mg BID SHIV Administration Folic Acid 1 mg 12/01/17 10:15 12/09/17 10:01 Folic Acid PO 1 mg DAILY SHIV Administration Heparin Sodium (Porcine) 5,000 units 12/03/17 08:15 12/10/17 06:47 Heparin SC 5,000 units Q8 SHIV Administration Protocol Hydralazine HCl 10 mg 11/29/17 14:56 12/02/17 12:56 Apresoline IVP 10 mg Q6 PRN Administration give if SBP >160 Dexmedetomidine HCl 400 mcg in 100 mls @ 3.629 mls/hr 11/26/17 09:21 07:30 Precedex 400mcg/100ml IV Infused .Q24H PRN Titration Agitation Protocol 0.2 MCG/KG/HR Meropenem 500 mg/ Sodium 100 mls @ 100 mls/hr 12/04/17 22:00 12/10/17 06:48 Chloride IVPB 100 mls/hr Q8 SHIV Administration Protocol Vancomycin HCl 1 gm in 250 mls @ 166.667 mls/hr 12/08/17 10:26 12/09/17 22:30 Vancomycin 1gm IVPB 166.667 mls/hr Q12H SHIV Administration Protocol Propofol 1,000 mg in 100 mls @ 2.671 mls/hr 12/09/17 11:34 12/10/17 02:48 Diprivan IV 25 mcg/kg/min .Q24H PRN 13.356 mls/hr TITRATE PER MD ORDER Administration Protocol 5 MCG/KG/MIN Sodium Chloride 1,000 mls @ 100 mls/hr 12/09/17 12:45 12/10/17 07:09 Sodium Chloride 0.9% IV 100 mls/hr .Q10H SHIV Administration Insulin Human Lispro 0 units 11/26/17 09:00 12/10/17 06:24 Humalog Low SC Not Given Q6H SHIV Protocol Levalbuterol HCl 0.63 mg 12/02/17 09:55 12/09/17 14:06 Xopenex IH 0.63 mg [id number] PRN Administration Shortness of Breath Levetiracetam 750 mg 12/04/17 22:00 12/09/17 21:03 Keppra PO 750 mg Q12 SHIV Administration Lorazepam 4 mg 12/08/17 15:11 12/09/17 18:02 Ativan IVP 4 mg Q4 PRN Administration Agitation Protocol Multivitamins/Minerals 1 tab 11/29/17 08:00 12/09/17 10:06 Therapeutic-M Tab PO 1 tab 0800 SHIV Administration Pantoprazole Sodium 40 mg 11/22/17 10:00 12/09/17 09:58 Protonix Inj IVP 40 mg DAILY SHIV Administration Polyethylene Glycol 17 gm 12/05/17 18:00 12/09/17 17:50 Miralax PO 17 gm BID SHIV Administration Propranolol HCl 40 mg 12/05/17 11:00 12/09/17 17:50 Inderal PO 40 mg BID SHIV Administration Quetiapine Fumarate 25 mg 12/09/17 11:45 Seroquel PO BID [facility] Protocol Thiamine HCl 100 mg 11/28/17 14:00 12/09/17 15:00 Vitamin B1 Tab PO 100 mg TID SHIV Administration Tobramycin Sulfate 0.08 gm 12/05/17 11:00 12/09/17 21:39 Tobramycin Inj IH 0.08 gm [id number] SHIV Administration Valproate Sodium 750 mg 12/09/17 22:00 12/09/17 21:02 Depakene Oral Soln PO 750 mg Q12 SHIV Administration Zinc Sulfate 220 mg 11/28/17 11:30 12/09/17 10:28 Zinc Sulfate 220 Mg Cap PO 220 mg DAILY SHIV Administration - Patient Studies Lab Studies: Lab Studies 12/10/17 12/10/17 12/10/17 Range/Units 07:00 07:00 07:00 WBC 4.2 L D (4.5-11.0) 10^3/ul RBC 3.12 L (3.5-6.1) 10^6/uL Hgb 9.3 L (14.0-18.0) g/dL Hct 28.6 L (42.0-52.0) % MCV 91.7 (80.0-105.0) fl MCH 29.8 (25.0-35.0) pg MCHC 32.5 (31.0-37.0) g/dl RDW 14.1 (11.5-14.5) % Plt Count 281 (120.0-450.0) 10^3/uL MPV 9.9 (7.0-11.0) fl Gran % 72.9 H (50.0-68.0) % Lymph % (Auto) 13.4 L (22.0-35.0) % Candler % (Auto) 9.7 H (1.0-6.0) % Eos % (Auto) 3.8 (1.5-5.0) % Baso % (Auto) 0.2 (0.0-3.0) % Gran # 3.09 (1.4-6.5) Lymph # (Auto) 0.6 L (1.2-3.4) Candler # (Auto) 0.4 (0.1-0.6) Eos # (Auto) 0.2 (0.0-0.7) Baso # (Auto) 0.01 (0.0-2.0) K/mm3 PT 15.4 H (9.4-12.5) SECONDS INR 1.33 H (0.93-1.08) Sodium (132-148) mmol/L Potassium (3.6-5.0) mmol/L Chloride (98-107) mmol/L Carbon Dioxide (21-33) mmol/L Anion Gap (10-20) BUN (7-21) mg/dL Creatinine (0.8-1.5) mg/dl Est GFR ( Amer) Est GFR (Non-Af Amer) POC Glucose (mg/dL) (65-110) mg/dL Random Glucose (70-110) mg/dL Calcium (8.4-10.5) mg/dL Magnesium (1.7-2.2) mg/dL Total Bilirubin (0.2-1.3) mg/dL AST (17-59) U/L ALT (7-56) U/L Alkaline Phosphatase (38-126) U/L Ammonia < 9 L (9-33) umol/L Total Creatine Kinase (35-230) U/L Total Protein (5.8-8.3) g/dL Albumin (3.0-4.8) g/dL Globulin gm/dL Albumin/Globulin Ratio (1.1-1.8) 12/10/17 12/10/17 12/09/17 Range/Units 07:00 04:44 21:11 WBC (4.5-11.0) 10^3/ul RBC (3.5-6.1) 10^6/uL Hgb (14.0-18.0) g/dL Hct (42.0-52.0) % MCV (80.0-105.0) fl MCH (25.0-35.0) pg MCHC (31.0-37.0) g/dl RDW (11.5-14.5) % Plt Count (120.0-450.0) 10^3/uL MPV (7.0-11.0) fl Gran % (50.0-68.0) % Lymph % (Auto) (22.0-35.0) % Candler % (Auto) (1.0-6.0) % Eos % (Auto) (1.5-5.0) % Baso % (Auto) (0.0-3.0) % Gran # (1.4-6.5) Lymph # (Auto) (1.2-3.4) Candler # (Auto) (0.1-0.6) Eos # (Auto) (0.0-0.7) Baso # (Auto) (0.0-2.0) K/mm3 PT (9.4-12.5) SECONDS INR (0.93-1.08) Sodium 146 (132-148) mmol/L Potassium 3.5 L (3.6-5.0) mmol/L Chloride 109 H (98-107) mmol/L Carbon Dioxide 28 (21-33) mmol/L Anion Gap 13 (10-20) BUN 8 (7-21) mg/dL Creatinine 0.7 L (0.8-1.5) mg/dl Est GFR ( Amer) > 60 Est GFR (Non-Af Amer) > 60 POC Glucose (mg/dL) 95 103 (65-110) mg/dL Random Glucose 103 (70-110) mg/dL Calcium 8.2 L (8.4-10.5) mg/dL Magnesium 2.1 (1.7-2.2) mg/dL Total Bilirubin 0.3 (0.2-1.3) mg/dL AST 31 (17-59) U/L ALT 58 H (7-56) U/L Alkaline Phosphatase 50 (38-126) U/L Ammonia (9-33) umol/L Total Creatine Kinase 126 (35-230) U/L Total Protein 4.5 L (5.8-8.3) g/dL Albumin 2.3 L (3.0-4.8) g/dL Globulin 2.3 gm/dL Albumin/Globulin Ratio 1.0 L (1.1-1.8) 12/09/17 12/09/17 12/09/17 Range/Units 15:21 09:11 06:00 WBC (4.5-11.0) 10^3/ul RBC (3.5-6.1) 10^6/uL Hgb (14.0-18.0) g/dL Hct (42.0-52.0) % MCV (80.0-105.0) fl MCH (25.0-35.0) pg MCHC (31.0-37.0) g/dl RDW (11.5-14.5) % Plt Count (120.0-450.0) 10^3/uL MPV (7.0-11.0) fl Gran % (50.0-68.0) % Lymph % (Auto) (22.0-35.0) % Candler % (Auto) (1.0-6.0) % Eos % (Auto) (1.5-5.0) % Baso % (Auto) (0.0-3.0) % Gran # (1.4-6.5) Lymph # (Auto) (1.2-3.4) Candler # (Auto) (0.1-0.6) Eos # (Auto) (0.0-0.7) Baso # (Auto) (0.0-2.0) K/mm3 PT (9.4-12.5) SECONDS INR (0.93-1.08) Sodium 145 (132-148) mmol/L Potassium 4.3 (3.6-5.0) mmol/L Chloride 111 H (98-107) mmol/L Carbon Dioxide 25 (21-33) mmol/L Anion Gap 14 (10-20) BUN 10 (7-21) mg/dL Creatinine 0.7 L (0.8-1.5) mg/dl Est GFR ( Amer) > 60 Est GFR (Non-Af Amer) > 60 POC Glucose (mg/dL) 105 111 H (65-110) mg/dL Random Glucose 111 H (70-110) mg/dL Calcium 8.4 (8.4-10.5) mg/dL Magnesium 2.1 (1.7-2.2) mg/dL Total Bilirubin 0.4 (0.2-1.3) mg/dL AST 53 (17-59) U/L ALT 81 H (7-56) U/L Alkaline Phosphatase 56 (38-126) U/L Ammonia (9-33) umol/L Total Creatine Kinase 140 (35-230) U/L Total Protein 5.1 L (5.8-8.3) g/dL Albumin 2.7 L (3.0-4.8) g/dL Globulin 2.4 gm/dL Albumin/Globulin Ratio 1.1 (1.1-1.8) Laboratory Results - last 24 hr 12/09/17 12/09/17 12/09/17 06:00 09:11 15:21 WBC RBC Hgb Hct MCV MCH MCHC RDW Plt Count MPV Gran % Lymph % (Auto) Candler % (Auto) Eos % (Auto) Baso % (Auto) Gran # Lymph # (Auto) Candler # (Auto) Eos # (Auto) Baso # (Auto) PT INR Sodium 145 Potassium 4.3 Chloride 111 H Carbon Dioxide 25 Anion Gap 14 BUN 10 Creatinine 0.7 L Est GFR ( Amer) > 60 Est GFR (Non-Af Amer) > 60 POC Glucose (mg/dL) 111 H 105 Random Glucose 111 H Calcium 8.4 Magnesium 2.1 Total Bilirubin 0.4 AST 53 ALT 81 H Alkaline Phosphatase 56 Ammonia Total Creatine Kinase 140 Total Protein 5.1 L Albumin 2.7 L Globulin 2.4 Albumin/Globulin Ratio 1.1 12/09/17 12/10/17 12/10/17 21:11 04:44 07:00 WBC RBC Hgb Hct MCV MCH MCHC RDW Plt Count MPV Gran % Lymph % (Auto) Candler % (Auto) Eos % (Auto) Baso % (Auto) Gran # Lymph # (Auto) Candler # (Auto) Eos # (Auto) Baso # (Auto) PT INR Sodium 146 Potassium 3.5 L Chloride 109 H Carbon Dioxide 28 Anion Gap 13 BUN 8 Creatinine 0.7 L Est GFR ( Amer) > 60 Est GFR (Non-Af Amer) > 60 POC Glucose (mg/dL) 103 95 Random Glucose 103 Calcium 8.2 L Magnesium 2.1 Total Bilirubin 0.3 AST 31 ALT 58 H Alkaline Phosphatase 50 Ammonia Total Creatine Kinase 126 Total Protein 4.5 L Albumin 2.3 L Globulin 2.3 Albumin/Globulin Ratio 1.0 L 12/10/17 12/10/17 12/10/17 07:00 07:00 07:00 WBC 4.2 L D RBC 3.12 L Hgb 9.3 L Hct 28.6 L MCV 91.7 MCH 29.8 MCHC 32.5 RDW 14.1 Plt Count 281 MPV 9.9 Gran % 72.9 H Lymph % (Auto) 13.4 L Candler % (Auto) 9.7 H Eos % (Auto) 3.8 Baso % (Auto) 0.2 Gran # 3.09 Lymph # (Auto) 0.6 L Candler # (Auto) 0.4 Eos # (Auto) 0.2 Baso # (Auto) 0.01 PT 15.4 H INR 1.33 H Sodium Potassium Chloride Carbon Dioxide Anion Gap BUN Creatinine Est GFR ( Amer) Est GFR (Non-Af Amer) POC Glucose (mg/dL) Random Glucose Calcium Magnesium Total Bilirubin AST ALT Alkaline Phosphatase Ammonia < 9 L Total Creatine Kinase Total Protein Albumin Globulin Albumin/Globulin Ratio Fingerstick Blood Sugar Results: 95 Review of Systems - Review of Systems Systems not reviewed;Unavailable: Altered Mental Status Critical Care Progress Note - Ventilator Checklist Head of Bed 30 Degrees: Yes Daily Sedation Vacation: Yes Daily Assessment of Readiness to Wean: Yes Daily Spontaneous Breathing Trial: Yes PUD Prophalyxis: Yes DVT Prophylaxis: Yes Oral Care with Chlorhexidine Gluconate {CHG}: Yes - Vent Settings MODE:: PRVC - Extremities/Vascular Does the Patient have a Central Venous Catheter?: Yes Insertion Site: Internal Jugular Vein Does the Patient need a Central Venous Catheter?: No Does the Patient have a Mackenzie Catheter?: Yes Does the Patient need a Mackenzie Catheter?: Yes - Restraints Justification for Restraints: High risk for self extubation, High risk for removing IV access, High risk for harming self - Prophylaxis GI Prophylaxis GI: PPI - Prophylaxis DVT Prophylaxis DVT: Heparin SQ, SCDs Assessment/Plan - Assessment and Plan (Free Text) Assessment: 62yo M with PMHx of Bipolar disorder and ETOH abuse in ICU for DTs 2/2 ETOH withdrawal. Patient initially admitted to psych for suicidal ideation then transferred to in-patient due to severe ETOH withdrawal with DTs requiring high- dose sedation and intubation. Rhabdomyolysis was also noted, but has resolved. CXR showing worsening of RLL consolidation, and patient has been on antibiotics to cover respiratory infections including sinusitis seen on imaging. Patient does not tolerate sedation vacation and has been failing vent weaning trials. PEG tube placed yesterday and patient can now received feeding through the tube. Tracheostomy planned for 12/11/17. Plan: Neuro: - Intubated and sedated on precedex and propofol - will continue attempting to wean off sedation daily - Ativan prn to avoid over-sedation - will cont on Propranolol and Cyprohepatadine for tremor, monitor for changes - continue thiamine, folic acid and multivitamin supplements - Neuro consulted- recs appreciated, will consider adding seroquel and increasing depakote - EEG's have been unremarkable so far; repeat EEG yesterday pending read - MRI brain showed persistent b/l maxially, ethomoid and sphoenoid sinusitis w/ mastoid effusions - Keppra 750mg BID and Depakote 250mg BID for seizure precautions; neuro managing changes - Continue CIWA protocol, seizure precaution, aspiration precaution - Head CT negative for acute pathology Cardio: - HD stable - Maintain MAP> 65mmHg - Hydralazine PRN for BP control - Propranolol started scheduled - continue IVF Pulm: - Intubated- wean as tolerated - Protective lung ventilation strategy, HOB elevated, daily oral care, and aspiration precautions, DVT and GI ppx, as well as daily attempts to wean off vent and sedation - CXR shows atelectasis - Xopenex PRN - will cont Meropenem and Linezolid as well as tobramycin inhaled for sinusitis and possible RLL pneumonia - Maintain spO2>90% - on OR schedule for tracheostomy on 12/[address] Hicks GI: - cont OG tube feeds - Thiamine, Folic acid, and MV for ETOH withdrawal and DTs - PPI for GI ppx - GI consulted for PEG placement Heme: - Hgb stable - platelets stable - monitor H/H daily Nephro: - Will continue to monitor electrolytes and replace as needed - Continue to monitor I&O - ammonia ordered for AM ID: - Fevers likely 2/2 withdrawals; blood cultures and UA negative so far, but CXR found RLL consolidation; will cont Meropenem, Linezolid and Tobramycin inhaled and monitor fevers - Bacitracin, Zinc, MV and vit C for skin - ID consulted- recs appreciated - PICC line placed Psych: - Hx of Bipolar - Psych consulted- recs appreciated - will evaluate once off of sedation - Consent for trach and PICC line obtained by Dr. Velez on 12/05 with family members over phone; consent for PEG obtained by GI team GI ppx: Protonix DVT ppx: Heparin SC and SCDs Diet: Tube feeds per PEG tube Dispo: Tracheostomy planned for tomorrow with Dr. Brunner. Plan for LTAC per SW. Will try to wean off of sedation as tolerated. Will trial wean off vent daily Patient was seen, examined, and discussed with attending, Dr. Dilan Traore PGY1 Pager [phone] <Cooper Kong - Last Filed: 12/10/17 13:04> CCU Objective - Vital Signs / Intake & Output Vital Signs (Last 4 hours): Vital Signs Temp Pulse Resp BP Pulse Ox 12/10/17 12:00 98 F 96 H 24 150/99 H 96 12/10/17 11:26 81 99 12/10/17 11:00 79 150/99 H 97 12/10/17 10:01 78 149/98 H 98 12/10/17 10:00 78 98 12/10/17 09:30 81 131/85 Intake and Output (Last 8hrs): Intake & Output 12/09/17 12/10/17 12/10/17 22:59 06:59 14:59 Intake Total 8810 497 4183 Output Total 1450 Balance -044 344 0667 Intake: IV 323 873 1457 Left Internal Jugular 650 450 precedex 486 Tube Feeding 300 Other 150 Output: Urine 1450 Urethral (Mackenzie) 1450 - Medications Active Medications: Active Medications Generic Name Dose Route Start Last Admin Trade Name Freq PRN Reason Stop Dose Admin Acetaminophen 650 mg 12/05/17 12:27 Tylenol 650 Mg Supp RC Q6H PRN Fever >100.4 F Ascorbic Acid 500 mg 11/28/17 11:30 12/10/17 09:33 Vitamin C 500 Mg Tab PO 500 mg DAILY SHIV Administration Bacitracin 1 ea 11/28/17 08:51 11/28/17 09:34 Bacitracin TOP 1 ea Q6 PRN Administration Swelling Cyproheptadine HCl 4 mg 12/05/17 11:15 12/10/17 06:47 Periactin PO 4 mg Q8H SHIV Administration Docusate Sodium 100 mg 12/05/17 18:00 12/10/17 09:29 Colace Liquid PO 100 mg BID SHIV Administration Folic Acid 1 mg 12/01/17 10:15 12/10/17 09:30 Folic Acid PO 1 mg DAILY SHIV Administration Heparin Sodium (Porcine) 5,000 units 12/03/17 08:15 12/10/17 06:47 Heparin SC 5,000 units Q8 SHIV Administration Protocol Hydralazine HCl 10 mg 11/29/17 14:56 12/02/17 12:56 Apresoline IVP 10 mg Q6 PRN Administration give if SBP >160 Dexmedetomidine HCl 400 mcg in 100 mls @ 3.629 mls/hr 11/26/17 09:21 07:30 Precedex 400mcg/100ml IV Infused .Q24H PRN Titration Agitation Protocol 0.2 MCG/KG/HR Meropenem 500 mg/ Sodium 100 mls @ 100 mls/hr 12/04/17 22:00 12/10/17 06:48 Chloride IVPB 100 mls/hr Q8 SHIV Administration Protocol Vancomycin HCl 1 gm in 250 mls @ 166.667 mls/hr 12/08/17 10:26 12/10/17 09:32 Vancomycin 1gm IVPB 166.667 mls/hr Q12H SHIV Administration Protocol Propofol 1,000 mg in 100 mls @ 2.671 mls/hr 12/09/17 11:34 12/10/17 12:49 Diprivan IV 25 mcg/kg/min .Q24H PRN 13.356 mls/hr TITRATE PER MD ORDER Administration Protocol 5 MCG/KG/MIN Sodium Chloride 1,000 mls @ 100 mls/hr 12/09/17 12:45 12/10/17 07:09 Sodium Chloride 0.9% IV 100 mls/hr .Q10H SHIV Administration Insulin Human Lispro 0 units 11/26/17 09:00 12/10/17 08:23 Humalog Low SC Not Given Q6H SHIV Protocol Levalbuterol HCl 0.63 mg 12/02/17 09:55 12/09/17 14:06 Xopenex IH 0.63 mg [id number] PRN Administration Shortness of Breath Levetiracetam 750 mg 12/04/17 22:00 12/10/17 09:31 Keppra PO 750 mg Q12 SHIV Administration Lorazepam 4 mg 12/08/17 15:11 12/09/17 18:02 Ativan IVP 4 mg Q4 PRN Administration Agitation Protocol Multivitamins/Minerals 1 tab 11/29/17 08:00 12/10/17 09:32 Therapeutic-M Tab PO 1 tab 0800 SHIV Administration Pantoprazole Sodium 40 mg 11/22/17 10:00 12/10/17 09:31 Protonix Inj IVP 40 mg DAILY SHIV Administration Polyethylene Glycol 17 gm 12/05/17 18:00 12/10/17 09:31 Miralax PO 17 gm BID SHIV Administration Propranolol HCl 40 mg 12/05/17 11:00 12/10/17 09:30 Inderal PO 40 mg BID SHIV Administration Quetiapine Fumarate 25 mg 12/09/17 11:45 Seroquel PO BID SHIV Protocol Thiamine HCl 100 mg 11/28/17 14:00 12/10/17 09:32 Vitamin B1 Tab PO 100 mg TID SHIV Administration Tobramycin Sulfate 0.08 gm 12/05/17 11:00 12/10/17 08:06 Tobramycin Inj IH 0.08 gm [id number] SHIV Administration Valproate Sodium 750 mg 12/09/17 22:00 12/10/17 09:30 Depakene Oral Soln PO 750 mg Q12 SHIV Administration Zinc Sulfate 220 mg 11/28/17 11:30 12/10/17 09:41 Zinc Sulfate 220 Mg Cap PO 220 mg DAILY SHIV Administration - Patient Studies Lab Studies: Lab Studies 12/10/17 12/10/17 12/10/17 Range/Units 11:00 09:56 08:08 WBC (4.5-11.0) 10^3/ul RBC (3.5-6.1) 10^6/uL Hgb (14.0-18.0) g/dL Hct (42.0-52.0) % MCV (80.0-105.0) fl MCH (25.0-35.0) pg MCHC (31.0-37.0) g/dl RDW (11.5-14.5) % Plt Count (120.0-450.0) 10^3/uL MPV (7.0-11.0) fl Gran % (50.0-68.0) % Lymph % (Auto) (22.0-35.0) % Candler % (Auto) (1.0-6.0) % Eos % (Auto) (1.5-5.0) % Baso % (Auto) (0.0-3.0) % Gran # (1.4-6.5) Lymph # (Auto) (1.2-3.4) Candler # (Auto) (0.1-0.6) Eos # (Auto) (0.0-0.7) Baso # (Auto) (0.0-2.0) K/mm3 PT (9.4-12.5) SECONDS INR (0.93-1.08) Sodium (132-148) mmol/L Potassium (3.6-5.0) mmol/L Chloride (98-107) mmol/L Carbon Dioxide (21-33) mmol/L Anion Gap (10-20) BUN (7-21) mg/dL Creatinine (0.8-1.5) mg/dl Est GFR ( Amer) Est GFR (Non-Af Amer) POC Glucose (mg/dL) 97 (65-110) mg/dL Random Glucose (70-110) mg/dL Calcium (8.4-10.5) mg/dL Magnesium (1.7-2.2) mg/dL Total Bilirubin (0.2-1.3) mg/dL AST (17-59) U/L ALT (7-56) U/L Alkaline Phosphatase (38-126) U/L Ammonia (9-33) umol/L Total Creatine Kinase (35-230) U/L Total Protein (5.8-8.3) g/dL Albumin (3.0-4.8) g/dL Globulin gm/dL Albumin/Globulin Ratio (1.1-1.8) Hepatitis A IgM Ab (NEGATIVE) Hep Bs Antigen (NEGATIVE) Hep B Core IgM Ab (NEGATIVE) Hepatitis C Antibody (NEGATIVE) Blood Type A POSITIVE Blood Type Confirm A POSITIVE Antibody Screen Negative BBK History Checked No verified bt 12/10/17 12/10/17 12/10/17 Range/Units 07:00 07:00 07:00 WBC 4.2 L D (4.5-11.0) 10^3/ul RBC 3.12 L (3.5-6.1) 10^6/uL Hgb 9.3 L (14.0-18.0) g/dL Hct 28.6 L (42.0-52.0) % MCV 91.7 (80.0-105.0) fl MCH 29.8 (25.0-35.0) pg MCHC 32.5 (31.0-37.0) g/dl RDW 14.1 (11.5-14.5) % Plt Count 281 (120.0-450.0) 10^3/uL MPV 9.9 (7.0-11.0) fl Gran % 72.9 H (50.0-68.0) % Lymph % (Auto) 13.4 L (22.0-35.0) % Candler % (Auto) 9.7 H (1.0-6.0) % Eos % (Auto) 3.8 (1.5-5.0) % Baso % (Auto) 0.2 (0.0-3.0) % Gran # 3.09 (1.4-6.5) Lymph # (Auto) 0.6 L (1.2-3.4) Candler # (Auto) 0.4 (0.1-0.6) Eos # (Auto) 0.2 (0.0-0.7) Baso # (Auto) 0.01 (0.0-2.0) K/mm3 PT 15.4 H (9.4-12.5) SECONDS INR 1.33 H (0.93-1.08) Sodium (132-148) mmol/L Potassium (3.6-5.0) mmol/L Chloride (98-107) mmol/L Carbon Dioxide (21-33) mmol/L Anion Gap (10-20) BUN (7-21) mg/dL Creatinine (0.8-1.5) mg/dl Est GFR ( Amer) Est GFR (Non-Af Amer) POC Glucose (mg/dL) (65-110) mg/dL Random Glucose (70-110) mg/dL Calcium (8.4-10.5) mg/dL Magnesium (1.7-2.2) mg/dL Total Bilirubin (0.2-1.3) mg/dL AST (17-59) U/L ALT (7-56) U/L Alkaline Phosphatase (38-126) U/L Ammonia < 9 L (9-33) umol/L Total Creatine Kinase (35-230) U/L Total Protein (5.8-8.3) g/dL Albumin (3.0-4.8) g/dL Globulin gm/dL Albumin/Globulin Ratio (1.1-1.8) Hepatitis A IgM Ab (NEGATIVE) Hep Bs Antigen (NEGATIVE) Hep B Core IgM Ab (NEGATIVE) Hepatitis C Antibody (NEGATIVE) Blood Type Blood Type Confirm Antibody Screen BBK History Checked 12/10/17 12/10/17 12/10/17 Range/Units 07:00 05:30 04:44 WBC (4.5-11.0) 10^3/ul RBC (3.5-6.1) 10^6/uL Hgb (14.0-18.0) g/dL Hct (42.0-52.0) % MCV (80.0-105.0) fl MCH (25.0-35.0) pg MCHC (31.0-37.0) g/dl RDW (11.5-14.5) % Plt Count (120.0-450.0) 10^3/uL MPV (7.0-11.0) fl Gran % (50.0-68.0) % Lymph % (Auto) (22.0-35.0) % [place] % (Auto) (1.0-6.0) % Eos % (Auto) (1.5-5.0) % Baso % (Auto) (0.0-3.0) % Gran # (1.4-6.5) Lymph # (Auto) (1.2-3.4) [place] # (Auto) (0.1-0.6) Eos # (Auto) (0.0-0.7) Baso # (Auto) (0.0-2.0) K/mm3 PT (9.4-12.5) SECONDS INR (0.93-1.08) Sodium 146 (132-148) mmol/L Potassium 3.5 L (3.6-5.0) mmol/L Chloride 109 H (98-107) mmol/L Carbon Dioxide 28 (21-33) mmol/L Anion Gap 13 (10-20) BUN 8 (7-21) mg/dL Creatinine 0.7 L (0.8-1.5) mg/dl Est GFR ( Amer) > 60 Est GFR (Non-Af Amer) > 60 POC Glucose (mg/dL) 95 (65-110) mg/dL Random Glucose 103 (70-110) mg/dL Calcium 8.2 L (8.4-10.5) mg/dL Magnesium 2.1 (1.7-2.2) mg/dL Total Bilirubin 0.3 (0.2-1.3) mg/dL AST 31 (17-59) U/L ALT 58 H (7-56) U/L Alkaline Phosphatase 50 (38-126) U/L Ammonia (9-33) umol/L Total Creatine Kinase 126 (35-230) U/L Total Protein 4.5 L (5.8-8.3) g/dL Albumin 2.3 L (3.0-4.8) g/dL Globulin 2.3 gm/dL Albumin/Globulin Ratio 1.0 L (1.1-1.8) Hepatitis A IgM Ab Negative (NEGATIVE) Hep Bs Antigen Negative (NEGATIVE) Hep B Core IgM Ab Negative (NEGATIVE) Hepatitis C Antibody Negative (NEGATIVE) Blood Type Blood Type Confirm Antibody Screen BBK History Checked 12/09/17 12/09/17 Range/Units 21:11 15:21 WBC (4.5-11.0) 10^3/ul RBC (3.5-6.1) 10^6/uL Hgb (14.0-18.0) g/dL Hct (42.0-52.0) % MCV (80.0-105.0) fl MCH (25.0-35.0) pg MCHC (31.0-37.0) g/dl RDW (11.5-14.5) % Plt Count (120.0-450.0) 10^3/uL MPV (7.0-11.0) fl Gran % (50.0-68.0) % Lymph % (Auto) (22.0-35.0) % [place] % (Auto) (1.0-6.0) % Eos % (Auto) (1.5-5.0) % Baso % (Auto) (0.0-3.0) % Gran # (1.4-6.5) Lymph # (Auto) (1.2-3.4) [place] # (Auto) (0.1-0.6) Eos # (Auto) (0.0-0.7) Baso # (Auto) (0.0-2.0) K/mm3 PT (9.4-12.5) SECONDS INR (0.93-1.08) Sodium (132-148) mmol/L Potassium (3.6-5.0) mmol/L Chloride (98-107) mmol/L Carbon Dioxide (21-33) mmol/L Anion Gap (10-20) BUN (7-21) mg/dL Creatinine (0.8-1.5) mg/dl Est GFR ( Amer) Est GFR (Non-Af Amer) POC Glucose (mg/dL) 103 105 (65-110) mg/dL Random Glucose (70-110) mg/dL Calcium (8.4-10.5) mg/dL Magnesium (1.7-2.2) mg/dL Total Bilirubin (0.2-1.3) mg/dL AST (17-59) U/L ALT (7-56) U/L Alkaline Phosphatase (38-126) U/L Ammonia (9-33) umol/L Total Creatine Kinase (35-230) U/L Total Protein (5.8-8.3) g/dL Albumin (3.0-4.8) g/dL Globulin gm/dL Albumin/Globulin Ratio (1.1-1.8) Hepatitis A IgM Ab (NEGATIVE) Hep Bs Antigen (NEGATIVE) Hep B Core IgM Ab (NEGATIVE) Hepatitis C Antibody (NEGATIVE) Blood Type Blood Type Confirm Antibody Screen BBK History Checked Laboratory Results - last 24 hr 12/09/17 12/09/17 12/10/17 15:21 21:11 04:44 WBC RBC Hgb Hct MCV MCH MCHC RDW Plt Count MPV Gran % Lymph % (Auto) [place] % (Auto) Eos % (Auto) Baso % (Auto) Gran # Lymph # (Auto) [place] # (Auto) Eos # (Auto) Baso # (Auto) PT INR Sodium Potassium Chloride Carbon Dioxide Anion Gap BUN Creatinine Est GFR ( Amer) Est GFR (Non-Af Amer) POC Glucose (mg/dL) 105 103 95 Random Glucose Calcium Magnesium Total Bilirubin AST ALT Alkaline Phosphatase Ammonia Total Creatine Kinase Total Protein Albumin Globulin Albumin/Globulin Ratio Hepatitis A IgM Ab Hep Bs Antigen Hep B Core IgM Ab Hepatitis C Antibody Blood Type Blood Type Confirm Antibody Screen BBK History Checked 12/10/17 12/10/17 12/10/17 05:30 07:00 07:00 WBC 4.2 L D RBC 3.12 L Hgb 9.3 L Hct 28.6 L MCV 91.7 MCH 29.8 MCHC 32.5 RDW 14.1 Plt Count 281 MPV 9.9 Gran % 72.9 H Lymph % (Auto) 13.4 L Candler % (Auto) 9.7 H Eos % (Auto) 3.8 Baso % (Auto) 0.2 Gran # 3.09 Lymph # (Auto) 0.6 L Candler # (Auto) 0.4 Eos # (Auto) 0.2 Baso # (Auto) 0.01 PT INR Sodium 146 Potassium 3.5 L Chloride 109 H Carbon Dioxide 28 Anion Gap 13 BUN 8 Creatinine 0.7 L Est GFR ( Amer) > 60 Est GFR (Non-Af Amer) > 60 POC Glucose (mg/dL) Random Glucose 103 Calcium 8.2 L Magnesium 2.1 Total Bilirubin 0.3 AST 31 ALT 58 H Alkaline Phosphatase 50 Ammonia Total Creatine Kinase 126 Total Protein 4.5 L Albumin 2.3 L Globulin 2.3 Albumin/Globulin Ratio 1.0 L Hepatitis A IgM Ab Negative Hep Bs Antigen Negative Hep B Core IgM Ab Negative Hepatitis C Antibody Negative Blood Type Blood Type Confirm Antibody Screen BBK History Checked 12/10/17 12/10/17 12/10/17 07:00 07:00 08:08 WBC RBC Hgb Hct MCV MCH MCHC RDW Plt Count MPV Gran % Lymph % (Auto) Candler % (Auto) Eos % (Auto) Baso % (Auto) Gran # Lymph # (Auto) Cand[place] # (Auto) Eos # (Auto) Baso # (Auto) PT 15.4 H INR 1.33 H Sodium Potassium Chloride Carbon Dioxide Anion Gap BUN Creatinine Est GFR ( Amer) Est GFR (Non-Af Amer) POC Glucose (mg/dL) 97 Random Glucose Calcium Magnesium Total Bilirubin AST ALT Alkaline Phosphatase Ammonia < 9 L Total Creatine Kinase Total Protein Albumin Globulin Albumin/Globulin Ratio Hepatitis A IgM Ab Hep Bs Antigen Hep B Core IgM Ab Hepatitis C Antibody Blood Type Blood Type Confirm Antibody Screen BBK History Checked 12/10/17 12/10/17 09:56 11:00 WBC RBC Hgb Hct MCV MCH MCHC RDW Plt Count MPV Gran % Lymph % (Auto) Candler % (Auto) Eos % (Auto) Baso % (Auto) Gran # Lymph # (Auto) [place] # (Auto) Eos # (Auto) Baso # (Auto) PT INR Sodium Potassium Chloride Carbon Dioxide Anion Gap BUN Creatinine Est GFR ( Amer) Est GFR (Non-Af Amer) POC Glucose (mg/dL) Random Glucose Calcium Magnesium Total Bilirubin AST ALT Alkaline Phosphatase Ammonia Total Creatine Kinase Total Protein Albumin Globulin Albumin/Globulin Ratio Hepatitis A IgM Ab Hep Bs Antigen Hep B Core IgM Ab Hepatitis C Antibody Blood Type A POSITIVE Blood Type Confirm A POSITIVE Antibody Screen Negative BBK History Checked No verified bt Assessment/Plan - Assessment and Plan (Free Text) Assessment: Pt seen and examined on rounds with resident, agree with note with following additions/exceptions: 62yo male with PMHx of heavy EtOH abuse a/w EtOH withdrawal, DTs, intubated. Patient with agitation, confusion, once off sedation. Very difficult to wean off ventilator 2/2 poor mental status. Patient becomes agitated, confused once off sedation. On Precedex drip CT head negative. EEG done. Neurology following. MRI brain done which did not show any acute findings. On antibiotics Awaiting Trach/PEG, LTach. Delirium Tremens Alcohol Withdrawal Dehydration AMS Rhabdo, resolved ?Serotonin Syndrome Recommend: - cont with ventilatory support, daily sedation vacation, daily cpap trials, for tracheostomy tomorrow - cont with antibiotics as per ID - IVF hydration - Thiamine, Folic, MVT - cont with Keppra - Periactin as per Neuro - Precedex drip - follow up Psych - follow up Neuro - Feeds - GI ppx - DVT ppx - NPO after MN for tracheostomy tomorrow - patient requires LTACH
--- NOTE | 2017-12-10 07:49 | RAD ---
HISTORY: RUE PICC line confirmation COMPARISON: Comparison is made with 12/09/2017 at 5:09 FINDINGS: LUNGS: Again seen are bilateral lower lobe opacities larger on the right. The right lower lobe opacity appears larger compared to the previous exam and may represent a combination of airspace consolidation and atelectasis. No significant interval change in the left lung noted. PLEURA: Right pleural effusion is again noted. CARDIOVASCULAR: The right heart border is not visualized due to right lower and middle lobe opacities. OSSEOUS STRUCTURES: No significant abnormalities. VISUALIZED UPPER ABDOMEN: Normal. OTHER FINDINGS: None. IMPRESSION: Persistent right lower and middle lobe opacity associated with right pleural effusion. Interval insertion of right-sided PICC line with the tip is likely at the distal SVC.
--- NOTE | 2017-12-10 08:00 | RAD ---
HISTORY: intubated COMPARISON: Comparison is made with 12/09/2017 FINDINGS: LUNGS: Interval improvement in the previously seen right middle and lower lobe opacity may represent atelectasis. There is suspicious for persistent atelectasis at the right lower lobe. Interval improvement in the left lung since the previous exam. The ET tube is seen at appropriate position. PLEURA: Right pleural effusion is again noted. CARDIOVASCULAR: Normal. OSSEOUS STRUCTURES: No significant abnormalities. VISUALIZED UPPER ABDOMEN: Normal. OTHER FINDINGS: Right-sided PICC line is again seen in place. IMPRESSION: Interval improvement in the right lower lung since the previous exam. Otherwise no significant interval change.
[2017-12-10] MEDS: Tobramycin 1.2 gm Inj IH SCH (08:06)
[2017-12-10] MEDS: Valproic Acid 250 mg/5 ml UD Cup PO SCH ×2 (09:30→21:04)
[2017-12-10] MEDS: POLYETHYLENE GLYCOL 3350 17 GM/Dose PACKET PO SCH ×2 (09:31→17:09)
[2017-12-10] MEDS: levETIRAcetam 500 mg/5ml UD cups PO SCH ×2 (09:31→21:04)
[2017-12-10] MEDS: Multivitamin With Minerals Tab PO SCH (09:32)
[2017-12-10] MEDS: Vancomycin 1gm in NS 250ml 1 GM/250 ML BAG IVPB SCH ×2 (09:32→22:30)
[2017-12-10 12:02] LABS: HEPATITIS B SURFACE AG Negative (NEGATIVE)
[2017-12-10 12:07] LABS: HEPATITIS A IGM NEGATIVE (NEGATIVE); HEPATITIS B CORE AB NEGATIVE (NEGATIVE)
[2017-12-10 12:19] LABS: HEPATITIS C ANTIBODY NEGATIVE (NEGATIVE)
--- NOTE | 2017-12-10 12:50 | CP.PCM.PN ---
Subjective - Date & Time of Evaluation Date of Evaluation: 12/10/17 Time of Evaluation: 07:00 - Subjective Subjective: Neuro progress note: Pt seen and examined at the bedside in ICU. Pt is intubated on mechanical vent. He is sedated with Diprivan, precedex and Ativan PRN . Pt has gag and corneal reflexes intact. Pt still becomes restless and agitated upon weaning from sedation. Moves all extremities. 12 Point ROS unobtainable Objective - Vital Signs/Intake and Output Vital Signs (last 24 hours): Temp Pulse Resp BP Pulse Ox 98 F 96 H 24 150/99 H 96 12/10/17 12:00 12/10/17 12:00 12/10/17 12:00 12/10/17 12:00 12/10/17 12:00 Intake and Output: 12/10/17 12/10/17 06:59 18:59 Intake Total 320 1186 Balance 320 1186 - Medications Medications: Current Medications Acetaminophen (Tylenol 650 Mg Supp) 650 mg RC Q6H PRN PRN Reason: Fever >100.4 F Ascorbic Acid (Vitamin C 500 Mg Tab) 500 mg PO DAILY [facility] Last Admin: 12/10/17 09:33 Dose: 500 mg Bacitracin (Bacitracin) 1 ea TOP Q6 PRN PRN Reason: Swelling Last Admin: 11/28/17 09:34 Dose: 1 ea Cyproheptadine HCl (Periactin) 4 mg PO Q8H [facility] Last Admin: 12/10/17 06:47 Dose: 4 mg Docusate Sodium (Colace Liquid) 100 mg PO BID [facility] Last Admin: 12/10/17 09:29 Dose: 100 mg Folic Acid (Folic Acid) 1 mg PO DAILY [facility] Last Admin: 12/10/17 09:30 Dose: 1 mg Heparin Sodium (Porcine) (Heparin) 5,000 units SC Q8 SHIV PRN Reason: Protocol Last Admin: 12/10/17 06:47 Dose: 5,000 units Hydralazine HCl (Apresoline) 10 mg IVP Q6 PRN PRN Reason: give if SBP >160 Last Admin: 12/02/17 12:56 Dose: 10 mg Dexmedetomidine HCl (Precedex 400mcg/100ml) 400 mcg in 100 mls @ 3.629 mls/hr IV .Q24H PRN; Protocol; 0.2 MCG/KG/HR PRN Reason: Agitation Last Titration: 12/10/17 07:30 Dose: Infused Meropenem 500 mg/ Sodium (Chloride) 100 mls @ 100 mls/hr IVPB Q8 SHIV PRN Reason: Protocol Last Admin: 12/10/17 06:48 Dose: 100 mls/hr Vancomycin HCl (Vancomycin 1gm) 1 gm in 250 mls @ 166.667 mls/hr IVPB Q12H [facility]IV PRN Reason: Protocol Last Admin: 12/10/17 09:32 Dose: 166.667 mls/hr Propofol (Diprivan) 1,000 mg in 100 mls @ 2.671 mls/hr IV .Q24H PRN; Protocol; 5 MCG/KG/MIN PRN Reason: TITRATE PER MD ORDER Last Admin: 12/10/17 02:48 Dose: 25 mcg/kg/min, 13.356 mls/hr Sodium Chloride (Sodium Chloride 0.9%) 1,000 mls @ 100 mls/hr IV .Q10H [facility]IV Last Admin: 12/10/17 07:09 Dose: 100 mls/hr Insulin Human Lispro (Humalog Low) 0 units SC Q6H SHIV PRN Reason: Protocol Last Admin: 12/10/17 08:23 Dose: Not Given Levalbuterol HCl (Xopenex) 0.63 mg IH [id number] PRN PRN Reason: Shortness of Breath Last Admin: 12/09/17 14:06 Dose: 0.63 mg Levetiracetam (Keppra) 750 mg PO Q12 [facility] Last Admin: 12/10/17 09:31 Dose: 750 mg Lorazepam (Ativan) 4 mg IVP Q4 PRN; Protocol PRN Reason: Agitation Last Admin: 12/09/17 18:02 Dose: 4 mg Multivitamins/Minerals (Therapeutic-M Tab) 1 tab PO 0800 [facility] Last Admin: 12/10/17 09:32 Dose: 1 tab Pantoprazole Sodium (Protonix Inj) 40 mg IVP DAILY [facility] Last Admin: 12/10/17 09:31 Dose: 40 mg Polyethylene Glycol (Miralax) 17 gm PO BID [facility] Last Admin: 12/10/17 09:31 Dose: 17 gm Propranolol HCl (Inderal) 40 mg PO BID [facility] Last Admin: 12/10/17 09:30 Dose: 40 mg Quetiapine Fumarate (Seroquel) 25 mg PO BID [facility] PRN Reason: Protocol Thiamine HCl (Vitamin B1 Tab) 100 mg PO TID [facility] Last Admin: 12/10/17 09:32 Dose: 100 mg Tobramycin Sulfate (Tobramycin Inj) 0.08 gm IH [id number] [facility] Last Admin: 12/10/17 08:06 Dose: 0.08 gm Valproate Sodium (Depakene Oral Soln) 750 mg PO Q12 [facility] Last Admin: 12/10/17 09:30 Dose: 750 mg Zinc Sulfate (Zinc Sulfate 220 Mg Cap) 220 mg PO DAILY [facility] Last Admin: 12/10/17 09:41 Dose: 220 mg - Labs Labs: 12/10/17 07:00 12/10/17 07:00 PT 15.4 SECONDS (9.4-12.5) H 12/10/17 07:00 INR 1.33 (0.93-1.08) H 12/10/17 07:00 - Constitutional Appears: No Acute Distress - Eye Exam Pupil Exam: NORMAL ACCOMODATION - Neurological Exam Neuro motor strength exam: Left Upper Extremity: 5, Right Upper Extremity: 5, Left Lower Extremity: 5, Right Lower Extremity: 5 Additional comments: sedated on precedex and diprivan Assessment and Plan - Assessment and Plan (Free Text) Assessment: 62yo M with PMHx of Bipolar disorder and ETOH abuse in ICU for DTs requiring intubation and sedation with precedex. EEG shows subclinical seizures?, repeat EEG did not show any signs of seizures. - Cont Depakote 750mg BID and Keppra 750mg Q12 - Seroquel 25mg BID on hold due to QT prolongation - Recommend psychiatry consult regarding recs of continuing patients anti psychiatric medication as patient may be just anxious upon weaning sedation - Seizure precautions - Sedation with precedex, diprivan and ativan as per ICU - Continue antibiotics as per ID - Blood pressure control - Maintain blood sugars 140-180 Case and plan was reviewed and discussed in detail with Dr Rosenberg.
[2017-12-10] MEDS: Levalbuterol 0.63 MG/3 ML Inhal Soln UD IH PRN (13:19)
--- NOTE | 2017-12-10 13:44 | CP.PCM.PN ---
Subjective - Date & Time of Evaluation Date of Evaluation: 12/10/17 Time of Evaluation: 12:00 - Subjective Subjective: Infectious Disease Follow Up: December 10, 2017 62 yo male with medical history that includes Bipolar disorder and alcohol abuse presented with EtOH intoxication and now in withdrawals. Originally in the psych floor for bipolar disease treatment and suicidal ideation on 11/21/2017. The patient required intubation. ID initially called for possible aspiration pneumonia. No fevers, leukocytosis at this time. Remains intubated. Still no fevers or leukocytosis. Remains sedated. Noted blistered skin on right hand that slightly improved. Persistent fevers up to 102.0 F earlier in course of hospitalization but afebrile the last few days.. Still no leukocytosis. Cultures from 11/30/2017 negative. New cultures sent 12/01-. Multiple blisters on the right hand. Fluid filler and dark in color. Would obtain fluid from blisters for culture. Would consider CT of chest/ abdomen/pelvis. Continue on meropenem for antibiotic coverage at this point. Also on inhaled tobramycin and IV Zyvox. No new issues. Difficult extubation. Patient severely agitated when taken off sedation. Tremors present and more pronounced when off sedation. Currently afebrile but still with diaphoresis and tremors. Mentally no improvement. Chest X-ray still with patchy infiltrate in right lung and atelectasis. Objective - Vital Signs/Intake and Output Vital Signs (last 24 hours): Temp Pulse Resp BP Pulse Ox 98 F 96 H 24 150/99 H 96 12/10/17 12:00 12/10/17 12:00 12/10/17 12:00 12/10/17 12:00 12/10/17 12:00 Intake and Output: 12/10/17 12/10/17 06:59 18:59 Intake Total 320 1286 Balance 320 1286 - Medications Medications: Current Medications Acetaminophen (Tylenol 650 Mg Supp) 650 mg RC Q6H PRN PRN Reason: Fever >100.4 F Ascorbic Acid (Vitamin C 500 Mg Tab) 500 mg PO DAILY [facility] Last Admin: 12/10/17 09:33 Dose: 500 mg Bacitracin (Bacitracin) 1 ea TOP Q6 PRN PRN Reason: Swelling Last Admin: 11/28/17 09:34 Dose: 1 ea Cyproheptadine HCl (Periactin) 4 mg PO Q8H REPLACED BY [facility] Last Admin: 12/10/17 06:47 Dose: 4 mg Docusate Sodium (Colace Liquid) 100 mg PO BID [facility]PL[facility] BY [facility] Last Admin: 12/10/17 09:29 Dose: 100 mg Folic Acid (Folic Acid) 1 mg PO DAILY [facility] Last Admin: 12/10/17 09:30 Dose: 1 mg Heparin Sodium (Porcine) (Heparin) 5,000 units SC Q8 SHIV PRN Reason: Protocol Last Admin: 12/10/17 06:47 Dose: 5,000 units Hydralazine HCl (Apresoline) 10 mg IVP Q6 PRN PRN Reason: give if SBP >160 Last Admin: 12/02/17 12:56 Dose: 10 mg Dexmedetomidine HCl (Precedex 400mcg/100ml) 400 mcg in 100 mls @ 3.629 mls/hr IV .Q24H PRN; Protocol; 0.2 MCG/KG/HR PRN Reason: Agitation Last Titration: 12/10/17 07:30 Dose: Infused Meropenem 500 mg/ Sodium (Chloride) 100 mls @ 100 mls/hr IVPB Q8 SHIV PRN Reason: Protocol Last Admin: 12/10/17 06:48 Dose: 100 mls/hr Vancomycin HCl (Vancomycin 1gm) 1 gm in 250 mls @ 166.667 mls/hr IVPB Q12H [facility]IV PRN Reason: Protocol Last Admin: 12/10/17 09:32 Dose: 166.667 mls/hr Propofol (Diprivan) 1,000 mg in 100 mls @ 2.671 mls/hr IV .Q24H PRN; Protocol; 5 MCG/KG/MIN PRN Reason: TITRATE PER MD ORDER Last Admin: 12/10/17 12:49 Dose: 25 mcg/kg/min, 13.356 mls/hr Sodium Chloride (Sodium Chloride 0.9%) 1,000 mls @ 100 mls/hr IV .Q10H [facility]PLACED [facility] Last Admin: 12/10/17 07:09 Dose: 100 mls/hr Insulin Human Lispro (Humalog Low) 0 units SC Q6H SHIV PRN Reason: Protocol Last Admin: 12/10/17 08:23 Dose: Not Given Levalbuterol HCl (Xopenex) 0.63 mg IH [id number] PRN PRN Reason: Shortness of Breath Last Admin: 12/10/17 13:19 Dose: 0.63 mg Levetiracetam (Keppra) 750 mg PO Q12 [facility]PLAC[facility] Last Admin: 12/10/17 09:31 Dose: 750 mg Lorazepam (Ativan) 4 mg IVP Q4 PRN; Protocol PRN Reason: Agitation Last Admin: 12/09/17 18:02 Dose: 4 mg Multivitamins/Minerals (Therapeutic-M Tab) 1 tab PO 0800 [facility] Last Admin: 12/10/17 09:32 Dose: 1 tab Pantoprazole Sodium (Protonix Inj) 40 mg IVP DAILY [facility] Last Admin: 12/10/17 09:31 Dose: 40 mg Polyethylene Glycol (Miralax) 17 gm PO BID [facility]PL[facility] Last Admin: 12/10/17 09:31 Dose: 17 gm Propranolol HCl (Inderal) 40 mg PO BID [facility]PLACED [facility] Last Admin: 12/10/17 09:30 Dose: 40 mg Quetiapine Fumarate (Seroquel) 25 mg PO BID [facility]PLACED BY [facility] PRN Reason: Protocol Thiamine HCl (Vitamin B1 Tab) 100 mg PO TID REPLACED BY [facility] Last Admin: 12/10/17 09:32 Dose: 100 mg Tobramycin Sulfate (Tobramycin Inj) 0.08 gm IH [id number] REPLACED BY [facility] Last Admin: 12/10/17 08:06 Dose: 0.08 gm Valproate Sodium (Depakene Oral Soln) 750 mg PO Q12 REPLACED BY [facility] Last Admin: 12/10/17 09:30 Dose: 750 mg Zinc Sulfate (Zinc Sulfate 220 Mg Cap) 220 mg PO DAILY [facility]PLAC[facility] Last Admin: 12/10/17 09:41 Dose: 220 mg - Labs Labs: 12/10/17 07:00 12/10/17 07:00 PT 15.4 SECONDS (9.4-12.5) H 12/10/17 07:00 INR 1.33 (0.93-1.08) H 12/10/17 07:00 - Constitutional Appears: Chronically Ill - Head Exam Additional comments: intubated and ventilated. - Eye Exam Eye Exam: EOMI, PERRL Pupil Exam: NORMAL ACCOMODATION, PERRL - ENT Exam ENT Exam: Mucous Membranes Moist, Normal External Ear Exam, TM's Normal Bilaterally - Neck Exam Neck Exam: Full ROM, Normal Inspection - Respiratory Exam Respiratory Exam: Clear to Ausculation Bilateral, NORMAL BREATHING PATTERN. absent: Rales, Rhonchi, Wheezes - Cardiovascular Exam Cardiovascular Exam: REGULAR RHYTHM, RRR, +S1, +S2 - GI/Abdominal Exam GI & Abdominal Exam: Soft, Normal Bowel Sounds. absent: Distended, Tenderness - Extremities Exam Extremities Exam: Joint Swelling, Pedal Edema - Neurological Exam Additional comments: poorly responsive and sedated. - Skin Skin Exam: Intact Additional comments: except Multiple blisters on the right hand. Fluid filler and dark in color. Most blisters are now burst. Assessment and Plan - Assessment and Plan (Free Text) Assessment: 62 yo male with EtOH abuse. Developed EtOH withdrawal and now required intubation and ventilation. The patient was being evaluated by ID for potential aspiration. The patient is currently on Cefepime and Vancomycin. If aspiration is a significant concern, would either add Flagyl IV or switch Cefepime to Meropenem or Zosyn. Febrile several days ago up to 102 F. Afebrile the last few days. No leukocytosis. No findings on Chest X-ray. Supportive care. Procalcitonin is 0.14 which is low. Noted procalcitonin repeated multiple times and all showing low values. Suggests strongly against bacterial causes but does not rule out viral. More likely secondary to the EtOH withdrawal and Delirium Tremens. Case discussed with team. Off antibiotics now. Will Monitor. Difficult extubation/wean from ventilation. Agitation when off sedation. Afebrile today but one temperature value showed hypothermia. Repeat cultures with next fever. Check urinalysis and urine culture. 11/30/2017 cultures negative so far. 12/01/2017 cultures with no specific growth. Afebrile the last few dates. Sputum cultures with yeast. Chest X-ray suggesting HCAP. Antibiotics continues on Zyvox and Meropenem. For now the patient has remained afebrile but appears to have an uprising trend again. Supportive care. Thank you for allowing me to participate in the care of the patient, we will follow with you.
--- NOTE | 2017-12-10 14:25 | CP.PCM.PN ---
<Mel Champagne - Last Filed: 12/10/17 14:35> Subjective - Date & Time of Evaluation Date of Evaluation: 12/10/17 Time of Evaluation: 07:00 - Subjective Subjective: PGY4 GI follow-up Pt seen and examined bedside Still sedated PEG functional for feed and meds No events overnight ROS: 10 point could not be conducted Objective - Vital Signs/Intake and Output Vital Signs (last 24 hours): Temp Pulse Resp BP Pulse Ox 98 F 83 24 136/83 98 12/10/17 12:00 12/10/17 14:00 12/10/17 12:00 12/10/17 14:00 12/10/17 14:00 Intake and Output: 12/10/17 12/10/17 06:59 18:59 Intake Total 320 1286 Balance 320 1286 - Medications Medications: Current Medications Acetaminophen (Tylenol 650 Mg Supp) 650 mg RC Q6H PRN PRN Reason: Fever >100.4 F Ascorbic Acid (Vitamin C 500 Mg Tab) 500 mg PO DAILY [facility] Last Admin: 12/10/17 09:33 Dose: 500 mg Bacitracin (Bacitracin) 1 ea TOP Q6 PRN PRN Reason: Swelling Last Admin: 11/28/17 09:34 Dose: 1 ea Cyproheptadine HCl (Periactin) 4 mg PO Q8H [facility] Last Admin: 12/10/17 13:43 Dose: 4 mg Docusate Sodium (Colace Liquid) 100 mg PO BID [facility] Last Admin: 12/10/17 09:29 Dose: 100 mg Folic Acid (Folic Acid) 1 mg PO DAILY [facility] Last Admin: 12/10/17 09:30 Dose: 1 mg Heparin Sodium (Porcine) (Heparin) 5,000 units SC Q8 SHIV PRN Reason: Protocol Last Admin: 12/10/17 13:42 Dose: 5,000 units Hydralazine HCl (Apresoline) 10 mg IVP Q6 PRN PRN Reason: give if SBP >160 Last Admin: 12/02/17 12:56 Dose: 10 mg Dexmedetomidine HCl (Precedex 400mcg/100ml) 400 mcg in 100 mls @ 3.629 mls/hr IV .Q24H PRN; Protocol; 0.2 MCG/KG/HR PRN Reason: Agitation Last Admin: 02/21/18 13:50 Dose: 1.5 mcg/kg/hr, 27.216 mls/hr Meropenem 500 mg/ Sodium (Chloride) 100 mls @ 100 mls/hr IVPB Q8 SHIV PRN Reason: Protocol Last Admin: 12/10/17 13:43 Dose: 100 mls/hr Vancomycin HCl (Vancomycin 1gm) 1 gm in 250 mls @ 166.667 mls/hr IVPB Q12H [facility]IV PRN Reason: Protocol Last Admin: 12/10/17 09:32 Dose: 166.667 mls/hr Propofol (Diprivan) 1,000 mg in 100 mls @ 2.671 mls/hr IV .Q24H PRN; Protocol; 5 MCG/KG/MIN PRN Reason: TITRATE PER MD ORDER Last Admin: 12/10/17 12:49 Dose: 25 mcg/kg/min, 13.356 mls/hr Sodium Chloride (Sodium Chloride 0.9%) 1,000 mls @ 100 mls/hr IV .Q10H [facility] Last Admin: 12/10/17 07:09 Dose: 100 mls/hr Insulin Human Lispro (Humalog Low) 0 units SC Q6H SHIV PRN Reason: Protocol Last Admin: 12/10/17 08:23 Dose: Not Given Levalbuterol HCl (Xopenex) 0.63 mg IH [id number] PRN PRN Reason: Shortness of Breath Last Admin: 12/10/17 13:19 Dose: 0.63 mg Levetiracetam (Keppra) 750 mg PO Q12 [facility] Last Admin: 12/10/17 09:31 Dose: 750 mg Lorazepam (Ativan) 4 mg IVP Q4 PRN; Protocol PRN Reason: Agitation Last Admin: 12/09/17 18:02 Dose: 4 mg Multivitamins/Minerals (Therapeutic-M Tab) 1 tab PO 0800 [facility] Last Admin: 12/10/17 09:32 Dose: 1 tab Pantoprazole Sodium (Protonix Inj) 40 mg IVP DAILY [facility] Last Admin: 12/10/17 09:31 Dose: 40 mg Polyethylene Glycol (Miralax) 17 gm PO BID [facility] Last Admin: 12/10/17 09:31 Dose: 17 gm Propranolol HCl (Inderal) 40 mg PO BID [facility] Last Admin: 12/10/17 09:30 Dose: 40 mg Quetiapine Fumarate (Seroquel) 25 mg PO BID [facility] PRN Reason: Protocol Thiamine HCl (Vitamin B1 Tab) 100 mg PO TID [facility] Last Admin: 12/10/17 13:44 Dose: 100 mg Tobramycin Sulfate (Tobramycin Inj) 0.08 gm IH [id number] [facility] Last Admin: 12/10/17 08:06 Dose: 0.08 gm Valproate Sodium (Depakene Oral Soln) 750 mg PO Q12 [facility] Last Admin: 12/10/17 09:30 Dose: 750 mg Zinc Sulfate (Zinc Sulfate 220 Mg Cap) 220 mg PO DAILY [facility] Last Admin: 12/10/17 09:41 Dose: 220 mg - Labs Labs: 12/10/17 07:00 12/10/17 07:00 PT 15.4 SECONDS (9.4-12.5) H 12/10/17 07:00 INR 1.33 (0.93-1.08) H 12/10/17 07:00 - Constitutional Appears: No Acute Distress - Head Exam Head Exam: ATRAUMATIC, NORMOCEPHALIC - Eye Exam Eye Exam: Normal appearance - ENT Exam ENT Exam: Mucous Membranes Moist - Neck Exam Neck Exam: Normal Inspection - Respiratory Exam Respiratory Exam: Clear to Ausculation Bilateral, NORMAL BREATHING PATTERN. absent: Rales, Rhonchi, Wheezes, Respiratory Distress - Cardiovascular Exam Cardiovascular Exam: REGULAR RHYTHM, +S1, +S2 - GI/Abdominal Exam GI & Abdominal Exam: Soft, Normal Bowel Sounds. absent: Guarding, Rigid, Tenderness, Organomegaly Additional comments: peg tube insertion site intact, no induration, or erythema or discharge - Extremities Exam Extremities Exam: absent: Joint Swelling, Pedal Edema - Neurological Exam Neurological Exam: Altered - Skin Skin Exam: Dry, Intact, Normal Color, Warm Assessment and Plan - Assessment and Plan (Free Text) Assessment: 62yo male with history of alcohol abuse and bipolar disorder admitted to the ICU with ventilator dependent respiratory failure secondary to delirium tremens/ alcohol withdrawal in the setting of RLL pneumonia. S/P PEG POD #1 1. Delirium Tremens 2. Alcohol Withdrawal 3. Altered mental status 4. RLL pneumonia 5. Rhabdomyolysis, resolved -bumper loosened 0.5cm -can use PEG for meds, water and feds -recommend cell tender consult -if pt is combative, recommend abd binder -PEG crae instructions given D/W Dr. Villavicencio <Miguel Ángel Villavicencio - Last Filed: 12/10/17 15:32> Objective - Vital Signs/Intake and Output Vital Signs (last 24 hours): Temp Pulse Resp BP Pulse Ox 98 F 83 24 136/83 98 12/10/17 12:00 12/10/17 14:00 12/10/17 12:00 12/10/17 14:00 12/10/17 14:00 Intake and Output: 12/10/17 12/10/17 06:59 18:59 Intake Total 320 1286 Balance 320 1286 - Medications Medications: Current Medications Acetaminophen (Tylenol 650 Mg Supp) 650 mg RC Q6H PRN PRN Reason: Fever >100.4 F Ascorbic Acid (Vitamin C 500 Mg Tab) 500 mg PO DAILY [facility] Last Admin: 12/10/17 09:33 Dose: 500 mg Bacitracin (Bacitracin) 1 ea TOP Q6 PRN PRN Reason: Swelling Last Admin: 11/28/17 09:34 Dose: 1 ea Cyproheptadine HCl (Periactin) 4 mg PO Q8H [facility] Last Admin: 12/10/17 13:43 Dose: 4 mg Docusate Sodium (Colace Liquid) 100 mg PO BID [facility] Last Admin: 12/10/17 09:29 Dose: 100 mg Folic Acid (Folic Acid) 1 mg PO DAILY [facility] Last Admin: 12/10/17 09:30 Dose: 1 mg Heparin Sodium (Porcine) (Heparin) 5,000 units SC Q8 [facility]IV PRN Reason: Protocol Last Admin: 12/10/17 13:42 Dose: 5,000 units Hydralazine HCl (Apresoline) 10 mg IVP Q6 PRN PRN Reason: give if SBP >160 Last Admin: 12/02/17 12:56 Dose: 10 mg Dexmedetomidine HCl (Precedex 400mcg/100ml) 400 mcg in 100 mls @ 3.629 mls/hr IV .Q24H PRN; Protocol; 0.2 MCG/KG/HR PRN Reason: Agitation Last Admin: 12/10/17 13:50 Dose: 1.5 mcg/kg/hr, 27.216 mls/hr Meropenem 500 mg/ Sodium (Chloride) 100 mls @ 100 mls/hr IVPB Q8 SHIV PRN Reason: Protocol Last Admin: 12/10/17 13:43 Dose: 100 mls/hr Vancomycin HCl (Vancomycin 1gm) 1 gm in 250 mls @ 166.667 mls/hr IVPB Q12H [facility] PRN Reason: Protocol Last Admin: 12/10/17 09:32 Dose: 166.667 mls/hr Propofol (Diprivan) 1,000 mg in 100 mls @ 2.671 mls/hr IV .Q24H PRN; Protocol; 5 MCG/KG/MIN PRN Reason: TITRATE PER MD ORDER Last Admin: 12/10/17 12:49 Dose: 25 mcg/kg/min, 13.356 mls/hr Sodium Chloride (Sodium Chloride 0.9%) 1,000 mls @ 100 mls/hr IV .Q10H [facility] Last Admin: 12/10/17 07:09 Dose: 100 mls/hr Insulin Human Lispro (Humalog Low) 0 units SC Q6H [facility] PRN Reason: Protocol Last Admin: 12/10/17 15:07 Dose: Not Given Levalbuterol HCl (Xopenex) 0.63 mg IH [id number] PRN PRN Reason: Shortness of Breath Last Admin: 12/10/17 13:19 Dose: 0.63 mg Levetiracetam (Keppra) 750 mg PO Q12 [facility] Last Admin: 12/10/17 09:31 Dose: 750 mg Lorazepam (Ativan) 4 mg IVP Q4 PRN; Protocol PRN Reason: Agitation Last Admin: 12/09/17 18:02 Dose: 4 mg Multivitamins/Minerals (Therapeutic-M Tab) 1 tab PO 0800 [facility] Last Admin: 12/10/17 09:32 Dose: 1 tab Pantoprazole Sodium (Protonix Inj) 40 mg IVP DAILY [facility] Last Admin: 12/10/17 09:31 Dose: 40 mg Polyethylene Glycol (Miralax) 17 gm PO BID [facility] Last Admin: 12/10/17 09:31 Dose: 17 gm Propranolol HCl (Inderal) 40 mg PO BID [facility] Last Admin: 12/10/17 09:30 Dose: 40 mg Quetiapine Fumarate (Seroquel) 25 mg PO BID [facility] PRN Reason: Protocol Thiamine HCl (Vitamin B1 Tab) 100 mg PO TID [facility] Last Admin: 12/10/17 13:44 Dose: 100 mg Tobramycin Sulfate (Tobramycin Inj) 0.08 gm IH [id number] [facility] Last Admin: 12/10/17 08:06 Dose: 0.08 gm Valproate Sodium (Depakene Oral Soln) 750 mg PO Q12 [facility] Last Admin: 12/10/17 09:30 Dose: 750 mg Zinc Sulfate (Zinc Sulfate 220 Mg Cap) 220 mg PO DAILY [facility] Last Admin: 12/10/17 09:41 Dose: 220 mg - Labs Labs: 12/10/17 07:00 12/10/17 07:00 PT 15.4 SECONDS (9.4-12.5) H 12/10/17 07:00 INR 1.33 (0.93-1.08) H 12/10/17 07:00 Attending/Attestation - Attestation I have personally seen and examined this patient.: Yes I have fully participated in the care of the patient.: Yes I have reviewed all pertinent clinical information, including history, physical exam and plan: Yes Notes (Text): 12/10/17 15:29 This is a 62yo male with history of alcohol abuse and bipolar disorder admitted to the ICU with ventilator dependent respiratory failure secondary to delirium tremens/alcohol withdrawal in the setting of RLL pneumonia. S/P PEG POD #1. Can use PEG for meds, food and water. Local PEG care. No induration, erythema or discharge from the PEG site. Thank you for letting us participate in the care of your patient
--- NOTE | 2017-12-10 15:03 | CP.PCM.PN ---
<Sarkis Fuentes - Last Filed: 12/10/17 15:41> Subjective - Date & Time of Evaluation Date of Evaluation: 12/10/17 Time of Evaluation: 07:10 - Subjective Subjective: Medicine progress note for Dr. Chaparro Hospitalist Service Patient seen and examined at bedside. Patient remains intubated and sedated on Precedex and Propofol drips. Therefore, ROS unable to be obtained. Patient witnessed intermittently shifting in bed despite sedation. Objective - Vital Signs/Intake and Output Vital Signs (last 24 hours): Temp Pulse Resp BP Pulse Ox 98 F 83 24 136/83 98 12/10/17 12:00 12/10/17 14:00 12/10/17 12:00 12/10/17 14:00 12/10/17 14:00 Intake and Output: 12/10/17 12/10/17 06:59 18:59 Intake Total 320 1286 Balance 320 1286 - Medications Medications: Current Medications Acetaminophen (Tylenol 650 Mg Supp) 650 mg RC Q6H PRN PRN Reason: Fever >100.4 F Ascorbic Acid (Vitamin C 500 Mg Tab) 500 mg PO DAILY [facility] Last Admin: 12/10/17 09:33 Dose: 500 mg Bacitracin (Bacitracin) 1 ea TOP Q6 PRN PRN Reason: Swelling Last Admin: 11/28/17 09:34 Dose: 1 ea Cyproheptadine HCl (Periactin) 4 mg PO Q8H [facility] Last Admin: 12/10/17 13:43 Dose: 4 mg Docusate Sodium (Colace Liquid) 100 mg PO BID [facility] Last Admin: 12/10/17 09:29 Dose: 100 mg Folic Acid (Folic Acid) 1 mg PO DAILY [facility] Last Admin: 12/10/17 09:30 Dose: 1 mg Heparin Sodium (Porcine) (Heparin) 5,000 units SC Q8 [facility] PRN Reason: Protocol Last Admin: 12/10/17 13:42 Dose: 5,000 units Hydralazine HCl (Apresoline) 10 mg IVP Q6 PRN PRN Reason: give if SBP >160 Last Admin: 12/02/17 12:56 Dose: 10 mg Dexmedetomidine HCl (Precedex 400mcg/100ml) 400 mcg in 100 mls @ 3.629 mls/hr IV .Q24H PRN; Protocol; 0.2 MCG/KG/HR PRN Reason: Agitation Last Admin: 12/10/17 13:50 Dose: 1.5 mcg/kg/hr, 27.216 mls/hr Meropenem 500 mg/ Sodium (Chloride) 100 mls @ 100 mls/hr IVPB Q8 [facility]IV PRN Reason: Protocol Last Admin: 12/10/17 13:43 Dose: 100 mls/hr Vancomycin HCl (Vancomycin 1gm) 1 gm in 250 mls @ 166.667 mls/hr IVPB Q12H [facility] PRN Reason: Protocol Last Admin: 12/10/17 09:32 Dose: 166.667 mls/hr Propofol (Diprivan) 1,000 mg in 100 mls @ 2.671 mls/hr IV .Q24H PRN; Protocol; 5 MCG/KG/MIN PRN Reason: TITRATE PER MD ORDER Last Admin: 12/10/17 12:49 Dose: 25 mcg/kg/min, 13.356 mls/hr Sodium Chloride (Sodium Chloride 0.9%) 1,000 mls @ 100 mls/hr IV .Q10H [facility] Last Admin: 12/10/17 07:09 Dose: 100 mls/hr Insulin Human Lispro (Humalog Low) 0 units SC Q6H [facility] PRN Reason: Protocol Last Admin: 12/10/17 08:23 Dose: Not Given Levalbuterol HCl (Xopenex) 0.63 mg IH [id number] PRN PRN Reason: Shortness of Breath Last Admin: 12/10/17 13:19 Dose: 0.63 mg Levetiracetam (Keppra) 750 mg PO Q12 [facility] Last Admin: 12/10/17 09:31 Dose: 750 mg Lorazepam (Ativan) 4 mg IVP Q4 PRN; Protocol PRN Reason: Agitation Last Admin: 12/09/17 18:02 Dose: 4 mg Multivitamins/Minerals (Therapeutic-M Tab) 1 tab PO 0800 [facility] Last Admin: 12/10/17 09:32 Dose: 1 tab Pantoprazole Sodium (Protonix Inj) 40 mg IVP DAILY [facility] Last Admin: 12/10/17 09:31 Dose: 40 mg Polyethylene Glycol (Miralax) 17 gm PO BID [facility] Last Admin: 12/10/17 09:31 Dose: 17 gm Propranolol HCl (Inderal) 40 mg PO BID [facility] Last Admin: 12/10/17 09:30 Dose: 40 mg Quetiapine Fumarate (Seroquel) 25 mg PO BID [facility] PRN Reason: Protocol Thiamine HCl (Vitamin B1 Tab) 100 mg PO TID [facility] Last Admin: 12/10/17 13:44 Dose: 100 mg Tobramycin Sulfate (Tobramycin Inj) 0.08 gm IH [id number] [facility] Last Admin: 12/10/17 08:06 Dose: 0.08 gm Valproate Sodium (Depakene Oral Soln) 750 mg PO Q12 [facility] Last Admin: 12/10/17 09:30 Dose: 750 mg Zinc Sulfate (Zinc Sulfate 220 Mg Cap) 220 mg PO DAILY [facility] Last Admin: 12/10/17 09:41 Dose: 220 mg - Labs Labs: 12/10/17 07:00 12/10/17 07:00 PT 15.4 SECONDS (9.4-12.5) H 12/10/17 07:00 INR 1.33 (0.93-1.08) H 12/10/17 07:00 - Constitutional Appears: Chronically Ill - Head Exam Head Exam: ATRAUMATIC, NORMOCEPHALIC - Eye Exam Eye Exam: Normal appearance - ENT Exam ENT Exam: Mucous Membranes Moist Additional comments: Endotracheal tube in place - Neck Exam Additional comments: Left IJ femoral TLC in place - Respiratory Exam Respiratory Exam: absent: Rales, Rhonchi, Wheezes Additional comments: Coarse breath sounds bilaterally. On mechanical ventilation 50% FiO2, PEEP 5, Tidal Volume 400, Respiratory rate 18 - Cardiovascular Exam Cardiovascular Exam: REGULAR RHYTHM, +S1, +S2 - GI/Abdominal Exam GI & Abdominal Exam: Soft, Normal Bowel Sounds. absent: Distended, Guarding, Tenderness Additional comments: PEG tube in place on left side of the abdomen. No obvious signs of infection from site of insertion - Exam Additional comments: mackenzie in place draining light yellow urine - Extremities Exam Additional comments: Upper and lower extremities with non-pitting edema Blisters on right hand - Neurological Exam Neurological Exam: Altered - Skin Skin Exam: Warm Assessment and Plan - Assessment and Plan (Free Text) Assessment: 62 year old male with PMHx of Bipolar disorder and ETOH abuse in ICU for DTs. Patient initially admitted to psych for suicidal ideation then transferred to in -patient due to severe ETOH withdrawal with DTs requiring high-dose sedation and intubation. Subclinical seizure noted on EEG performed on 11/30/17. Fevers likely due to DTs versus developing RLL consolidation and pleural effusion seen on CXR. Repeat EEG showing artifact likely from hand tremors. Patient's sister Bindu Ashton ([phone]) was able to get in touch with the critical care team and advocate for PEG placement, and she will be the healthcare proxy from this point forward. PEG placed on 12/09/17, and patient is for trach placement on 12/11. Plan: 1. ETOH withdrawal with Delirium Tremens - Intubated and sedated currently on precedex and diprivan. Vent settings as follows: 50% FiO2, PEEP 5, Tidal Volume 400, Respiratory rate 18 - Neuro consulted- recs appreciated - Continue CIWA protocol, seizure precaution, aspiration precaution - Ativan 4 mg IV prn agitation - Head CT negative for acute pathology - EEG with subclinical seizure seen; neurology recommends repeat EEG - IV Depakote and Keppra on board for seizure prophylaxis and mood stabilization - MRI brain showed persistent bilateral maxially, ethomoid and sphoenoid sinusitis with mastoid effusions - Plan for PEG later today per GI 2. Altered Mental Status, currently being sedated for DT's - CT head was unremarkable - thiamine increased to protect against encephalopathy - EEG with subclinical seizure seen however repeat EEG does not show this. It shows artifact likely caused by patient's hand tremors. - Per neurology, agitation possibly manifestation of patient's psychiatric illnesses. Seroquel was started and mood stabilizers were increased in dosages. 3. Right lower lobe consolidations secondary to HCAP - Seen on CXR and worsening, with pleural effusion as well - Possible pneumonia with pleural effusion versus atelectasis - Treated with Merrem and Vancomycin 4. Sinusitis - seen on MRI - Continue to treat with Inhaled Tobramycin 5. Blisters on hands - Multivitamin, vit C and Zinc added - Bacitracin ointment to be applied 6. Rhabdomyolysis - likely secondary to DT's - renal function has not been affected - CPK markedly elevated but is now downtrending - will monitor 7. Fever, suspected due to pneumonia - Possibly secondary to ETOH withdrawals - ID consult, appreciate recs - Currently afebrile - Follow up septic workup - negative Lower Extremity ultrasound - no vegetations seen on echo -Remeron as a cause of possible serotonin syndrome; cyproheptadine and propranolol started 8. Electrolyte imbalance - monitor and replete as needed 9. Transaminitis Due to chronic alcohol abuse, will discuss alcohol cessation with patient once no longer sedated. 10. Prophylaxis - SCDs - Aspiration precautions - Seizure precautions - Heparin SC - Protonix Disposition: Remains intubated for now (Vent settings: 50% FiO2, PEEP 5, Tidal Volume 400, Respiratory rate 18). Left IJ TLC in place. Continue to attempt weaning off of ventilation support. Confirmed trach placement on with Dr. Hicks. Follow up with case management team for discharge planning. Discussed and seen with Dr. Chaparro <Charlotte Chaparro - Last Filed: 12/10/17 18:48> Objective - Vital Signs/Intake and Output Vital Signs (last 24 hours): Temp Pulse Resp BP Pulse Ox 98 F 69 23 149/82 96 12/10/17 16:00 12/10/17 17:59 12/10/17 16:00 12/10/17 17:32 12/10/17 17:32 Intake and Output: 12/10/17 12/10/17 06:59 18:59 Intake Total 320 3998 Output Total 2000 Balance 320 1997 - Medications Medications: Current Medications Acetaminophen (Tylenol 650 Mg Supp) 650 mg RC Q6H PRN PRN Reason: Fever >100.4 F Ascorbic Acid (Vitamin C 500 Mg Tab) 500 mg PO DAILY [facility] Last Admin: 12/10/17 09:33 Dose: 500 mg Bacitracin (Bacitracin) 1 ea TOP Q6 PRN PRN Reason: Swelling Last Admin: 11/28/17 09:34 Dose: 1 ea Cyproheptadine HCl (Periactin) 4 mg PO Q8H [facility] Last Admin: 12/10/17 13:43 Dose: 4 mg Docusate Sodium (Colace Liquid) 100 mg PO BID [facility] Last Admin: 12/10/17 17:09 Dose: 100 mg Folic Acid (Folic Acid) 1 mg PO DAILY [facility] Last Admin: 12/10/17 09:30 Dose: 1 mg Heparin Sodium (Porcine) (Heparin) 5,000 units SC Q8 [facility] PRN Reason: Protocol Last Admin: 12/10/17 13:42 Dose: 5,000 units Hydralazine HCl (Apresoline) 10 mg IVP Q6 PRN PRN Reason: give if SBP >160 Last Admin: 12/02/17 12:56 Dose: 10 mg Dexmedetomidine HCl (Precedex 400mcg/100ml) 400 mcg in 100 mls @ 3.629 mls/hr IV .Q24H PRN; Protocol; 0.2 MCG/KG/HR PRN Reason: Agitation Last Admin: 12/10/17 18:25 Dose: 1.5 mcg/kg/hr, 27.216 mls/hr Meropenem 500 mg/ Sodium (Chloride) 100 mls @ 100 mls/hr IVPB Q8 [facility] PRN Reason: Protocol Last Admin: 12/10/17 13:43 Dose: 100 mls/hr Vancomycin HCl (Vancomycin 1gm) 1 gm in 250 mls @ 166.667 mls/hr IVPB Q12H [facility] PRN Reason: Protocol Last Admin: 12/10/17 09:32 Dose: 166.667 mls/hr Propofol (Diprivan) 1,000 mg in 100 mls @ 2.671 mls/hr IV .Q24H PRN; Protocol; 5 MCG/KG/MIN PRN Reason: TITRATE PER MD ORDER Last Admin: 12/10/17 12:49 Dose: 25 mcg/kg/min, 13.356 mls/hr Sodium Chloride (Sodium Chloride 0.9%) 1,000 mls @ 100 mls/hr IV .Q10H [facility] Last Admin: 12/10/17 07:09 Dose: 100 mls/hr Insulin Human Lispro (Humalog Low) 0 units SC Q6H [facility] PRN Reason: Protocol Last Admin: 12/10/17 15:07 Dose: Not Given Levalbuterol HCl (Xopenex) 0.63 mg IH [id number] PRN PRN Reason: Shortness of Breath Last Admin: 12/10/17 13:19 Dose: 0.63 mg Levetiracetam (Keppra) 750 mg PO Q12 [facility] Last Admin: 12/10/17 09:31 Dose: 750 mg Lorazepam (Ativan) 4 mg IVP Q4 PRN; Protocol PRN Reason: Agitation Last Admin: 12/09/17 18:02 Dose: 4 mg Multivitamins/Minerals (Therapeutic-M Tab) 1 tab PO 0800 [facility] Last Admin: 12/10/17 09:32 Dose: 1 tab Pantoprazole Sodium (Protonix Inj) 40 mg IVP DAILY [facility] Last Admin: 12/10/17 09:31 Dose: 40 mg Polyethylene Glycol (Miralax) 17 gm PO BID [facility] Last Admin: 12/10/17 17:09 Dose: 17 gm Propranolol HCl (Inderal) 40 mg PO BID [facility] Last Admin: 12/10/17 17:09 Dose: 40 mg Quetiapine Fumarate (Seroquel) 25 mg PO BID [facility] PRN Reason: Protocol Thiamine HCl (Vitamin B1 Tab) 100 mg PO TID [facility] Last Admin: 12/10/17 17:09 Dose: 100 mg Tobramycin Sulfate (Tobramycin Inj) 0.08 gm IH [id number] [facility] Last Admin: 12/10/17 08:06 Dose: 0.08 gm Valproate Sodium (Depakene Oral Soln) 750 mg PO Q12 [facility] Last Admin: 12/10/17 09:30 Dose: 750 mg Zinc Sulfate (Zinc Sulfate 220 Mg Cap) 220 mg PO DAILY [facility] Last Admin: 12/10/17 09:41 Dose: 220 mg - Labs Labs: 12/10/17 07:00 12/10/17 07:00 PT 15.4 SECONDS (9.4-12.5) H 12/10/17 07:00 INR 1.33 (0.93-1.08) H 12/10/17 07:00 Attending/Attestation - Attestation I have personally seen and examined this patient.: Yes I have fully participated in the care of the patient.: Yes I have reviewed all pertinent clinical information, including history, physical exam and plan: Yes Notes (Text): 12/10/17 18:46 attending note; Patient seen and examined with the resident in ICU. patient is a 62 year old male with history of bipolar disorder and chronic alcohol abuse is admitted for alcohol withdrawal and delirium tremens. Currently intubated. s/p PEG placement and Mid line placement yesterday. We will start feeding today. Unsuccessful weaning trial. Continue ventilator support. Possible trach tomorrow. Pneumonia; CXR reveals RLL consolidation. Patient is on Meropenem, vancomycin and tobramycin. UDS negative. Echo did not reveal any vegetation. will complete 7-[address] head was negative. Will continue Ativan. EEG revealed subclinical seizure on keppra. case discussed with drug abuse social worker in detail for discharge planning. Paperwork completed. patient requires LTAC placement. Monitor closely in ICU.
[2017-12-11] MEDS: Propofol 10 mg/ml 1,000 MG/100 ML VIAL IV PRN (03:53)
[2017-12-11] MEDS: Dexmedetomidine 400mcg/100mL 400 MCG/100 ML BOTTLE IV PRN ×4 (03:54→18:07)
[2017-12-11] MEDS: Insulin Lispro (humaLOG) LOW Coverage SC SCH ×4 (05:00→21:15)
[2017-12-11] MEDS: Meropenem 500 MG in Sodium Chloride 0.9% 100 ML IVPB SCH ×3 (05:03→22:51)
[2017-12-11 06:48] LABS: BASO # 0.02 K/mm3 (0.0-2.0); BASO % 0.3 % (0.0-3.0); EOS # 0.2 (0.0-0.7); EOS % 2.5 % (1.5-5.0); GRAN # 4.68 (1.4-6.5); GRAN % 72.9 % (50.0-68.0); HEMOGLOBIN 11.2 g/dL (14.0-18.0); LYMPH # 0.9 (1.2-3.4); MEAN CELL VOLUME 91.2 fl (80.0-105.0); MEAN CORPUSCULAR HEMOGLOBIN 29.7 pg (25.0-35.0); MEAN CORPUSCULAR HGB CONC 32.6 g/dl (31.0-37.0); MEAN PLATELET VOLUME 10.3 fl (7.0-11.0); MONO # 0.7 (0.1-0.6); MONO % 10.3 % (1.0-6.0); RBC 3.77 10^6/uL (3.5-6.1); RED CELL DISTRIBUTION WIDTH 13.8 % (11.5-14.5); WHITE BLOOD COUNT 6.4 10^3/ul (4.5-11.0)
--- NOTE | 2017-12-11 06:51 | CP.CCUPN ---
<Rosa Maria Armendariz - Last Filed: 12/11/17 16:06> CCU Subjective - Physician Review Subjective (Free Text): 12/11/17 09:51 No acute overnight events. Remains sedated on precedex. This AM, patient with purposeless movement. Doesn't follow commands. Critical Care Time Spent (in minutes): 45 CCU Objective - Vital Signs / Intake & Output Vital Signs (Last 4 hours): Vital Signs Temp Pulse BP Pulse Ox 12/11/17 06:00 82 100 12/11/17 05:17 84 12/11/17 05:00 79 157/87 H 100 12/11/17 04:00 98.8 F 84 156/96 H 100 12/11/17 03:00 83 145/91 H 100 Intake and Output (Last 8hrs): Intake & Output 12/10/17 12/10/17 12/11/17 14:59 22:59 06:59 Intake Total 1286 2912 2250 Output Total 1999 2500 Balance 1286 912 -250 Intake: IV 1136 1912 2150 IVPB 350 Left Internal Jugular 450 Right Upper arm 800 1950 precedex 486 319 propofol 143 Tube Feeding 400 100 Other 150 600 Output: Urine 2000 2500 Urethral (Mackenzie) 2000 2500 - Physical Exam Head: Positive for: Atraumatic, Normocephalic Pupils: Positive for: PERRL, Sluggish Extroacular Muscles: Positive for: EOMI Conjunctiva: Positive for: Normal. Negative for: Injected Ears: Positive for: Normal Mouth: Positive for: Normal Teeth, Other (dry oral mucosa, ET/OG tube in place) Pharnyx: Positive for: Normal Nose (External): Positive for: Atraumatic Nose (Internal): Positive for: Normal Inspection Neck: Negative for: JVD Respiratory/Chest: Positive for: Clear to Auscultation, Good Air Exchange, Other (intubated on vent). Negative for: Respiratory Distress, Accessory Muscle Use, Wheezes, Rales, Retracting, Rhonchi, Tachypneic Cardiovascular: Positive for: Normal S1, S2, Tachycardic. Negative for: Murmurs Abdomen: Positive for: Normal Bowel Sounds, Feeding Tubes, Ostomy Tubes (PEG tube ). Negative for: Tenderness, Distention, Peritoneal Signs, Rebound, Guarding Genitourinary Male: Positive for: Other (mackenzie catheter in place ) Back: Positive for: Normal Inspection. Negative for: Midline Tenderness Upper Extremity: Positive for: Normal Inspection, NORMAL PULSES, Other (resting right arm tremor, rigidity noted). Negative for: Cyanosis, Edema Lower Extremity: Positive for: Normal Inspection, NORMAL PULSES. Negative for: Edema Neurological: Positive for: Other (sedated ). Negative for: GCS=15 Skin: Positive for: Warm, Normal Color, Diaphoretic Psychiatric: Positive for: Other (sedated). Negative for: Alert, Oriented x 3, Normal Insight, Normal Concentration - Medications Active Medications: Active Medications Generic Name Dose Route Start Last Admin Trade Name Freq PRN Reason Stop Dose Admin Acetaminophen 650 mg 12/05/17 12:27 Tylenol 650 Mg Supp RC Q6H PRN Fever >100.4 F Ascorbic Acid 500 mg 11/28/17 11:30 12/10/17 09:33 Vitamin C 500 Mg Tab PO 500 mg DAILY SHIV Administration Bacitracin 1 ea 11/28/17 08:51 11/28/17 09:34 Bacitracin TOP 1 ea Q6 PRN Administration Swelling Cyproheptadine HCl 4 mg 12/05/17 11:15 12/11/17 00:00 Periactin PO 4 mg Q8H SHIV Administration Docusate Sodium 100 mg 12/05/17 18:00 12/10/17 17:09 Colace Liquid PO 100 mg BID SHIV Administration Folic Acid 1 mg 12/01/17 10:15 12/10/17 09:30 Folic Acid PO 1 mg DAILY SHIV Administration Heparin Sodium (Porcine) 5,000 units 12/03/17 08:15 12/11/17 05:03 Heparin SC 5,000 units Q8 SHIV Administration Protocol Hydralazine HCl 10 mg 11/29/17 14:56 12/02/17 12:56 Apresoline IVP 10 mg Q6 PRN Administration give if SBP >160 Dexmedetomidine HCl 400 mcg in 100 mls @ 3.629 mls/hr 11/26/17 09:21 03:54 Precedex 400mcg/100ml IV 1.5 mcg/kg/hr .Q24H PRN 27.216 mls/hr Agitation Administration Protocol 0.2 MCG/KG/HR Meropenem 500 mg/ Sodium 100 mls @ 100 mls/hr 12/04/17 22:00 02/22/18 05:03 Chloride IVPB 100 mls/hr Q8 SHIV Administration Protocol Vancomycin HCl 1 gm in 250 mls @ 166.667 mls/hr 12/08/17 10:26 12/10/17 22:30 Vancomycin 1gm IVPB 166.667 mls/hr Q12H SHIV Administration Protocol Propofol 1,000 mg in 100 mls @ 2.671 mls/hr 12/09/17 11:34 12/11/17 03:53 Diprivan IV 25 mcg/kg/min .Q24H PRN 13.356 mls/hr TITRATE PER MD ORDER Administration Protocol 5 MCG/KG/MIN Sodium Chloride 1,000 mls @ 100 mls/hr 12/09/17 12:45 12/10/17 07:09 Sodium Chloride 0.9% IV 100 mls/hr .Q10H SHIV Administration Insulin Human Lispro 0 units 11/26/17 09:00 12/11/17 05:00 Humalog Low SC Not Given Q6H SHIV Protocol Levalbuterol HCl 0.63 mg 12/02/17 09:55 12/10/17 13:19 Xopenex IH 0.63 mg [id number] PRN Administration Shortness of Breath Levetiracetam 750 mg 12/04/17 22:00 12/10/17 21:04 Keppra PO 750 mg Q12 SHIV Administration Lorazepam 4 mg 12/08/17 15:11 12/09/17 18:02 Ativan IVP 4 mg Q4 PRN Administration Agitation Protocol Multivitamins/Minerals 1 tab 11/29/17 08:00 12/10/17 09:32 Therapeutic-M Tab PO 1 tab 0800 SHIV Administration Pantoprazole Sodium 40 mg 11/22/17 10:00 12/10/17 09:31 Protonix Inj IVP 40 mg DAILY SHIV Administration Polyethylene Glycol 17 gm 12/05/17 18:00 12/10/17 17:09 Miralax PO 17 gm BID SHIV Administration Propranolol HCl 40 mg 12/05/17 11:00 12/10/17 17:09 Inderal PO 40 mg BID SHIV Administration Quetiapine Fumarate 25 mg 12/09/17 11:45 Seroquel PO BID SHIV Protocol Thiamine HCl 100 mg 11/28/17 14:00 12/10/17 17:09 Vitamin B1 Tab PO 100 mg TID SHIV Administration Tobramycin Sulfate 0.08 gm 12/05/17 11:00 12/10/17 08:06 Tobramycin Inj IH 0.08 gm [id number] SHIV Administration Valproate Sodium 750 mg 12/09/17 22:00 12/10/17 21:04 Depakene Oral Soln PO 750 mg Q12 SHIV Administration Zinc Sulfate 220 mg 11/28/17 11:30 12/10/17 09:41 Zinc Sulfate 220 Mg Cap PO 220 mg DAILY SHIV Administration - Patient Studies Lab Studies: Lab Studies 12/11/17 12/10/17 12/10/17 Range/Units 06:10 22:21 16:42 WBC (4.5-11.0) 10^3/ul RBC (3.5-6.1) 10^6/uL Hgb (14.0-18.0) g/dL Hct (42.0-52.0) % MCV (80.0-105.0) fl MCH (25.0-35.0) pg MCHC (31.0-37.0) g/dl RDW (11.5-14.5) % Plt Count (120.0-450.0) 10^3/uL MPV (7.0-11.0) fl Gran % (50.0-68.0) % Lymph % (Auto) (22.0-35.0) % [place] % (Auto) (1.0-6.0) % Eos % (Auto) (1.5-5.0) % Baso % (Auto) (0.0-3.0) % Gran # (1.4-6.5) Lymph # (Auto) (1.2-3.4) [place] # (Auto) (0.1-0.6) Eos # (Auto) (0.0-0.7) Baso # (Auto) (0.0-2.0) K/mm3 PT (9.4-12.5) SECONDS INR (0.93-1.08) Sodium (132-148) mmol/L Potassium (3.6-5.0) mmol/L Chloride (98-107) mmol/L Carbon Dioxide (21-33) mmol/L Anion Gap (10-20) BUN (7-21) mg/dL Creatinine (0.8-1.5) mg/dl Est GFR ( Amer) Est GFR (Non-Af Amer) POC Glucose (mg/dL) 98 107 113 H (65-110) mg/dL Random Glucose (70-110) mg/dL Calcium (8.4-10.5) mg/dL Magnesium (1.7-2.2) mg/dL Total Bilirubin (0.2-1.3) mg/dL AST (17-59) U/L ALT (7-56) U/L Alkaline Phosphatase (38-126) U/L Ammonia (9-33) umol/L Total Creatine Kinase (35-230) U/L Total Protein (5.8-8.3) g/dL Albumin (3.0-4.8) g/dL Globulin gm/dL Albumin/Globulin Ratio (1.1-1.8) Hepatitis A IgM Ab (NEGATIVE) Hep Bs Antigen (NEGATIVE) Hep B Core IgM Ab (NEGATIVE) Hepatitis C Antibody (NEGATIVE) Blood Type Blood Type Confirm Antibody Screen BBK History Checked 12/10/17 12/10/17 12/10/17 Range/Units 11:53 11:00 09:56 WBC (4.5-11.0) 10^3/ul RBC (3.5-6.1) 10^6/uL Hgb (14.0-18.0) g/dL Hct (42.0-52.0) % MCV (80.0-105.0) fl MCH (25.0-35.0) pg MCHC (31.0-37.0) g/dl RDW (11.5-14.5) % Plt Count (120.0-450.0) 10^3/uL MPV (7.0-11.0) fl Gran % (50.0-68.0) % Lymph % (Auto) (22.0-35.0) % [place] % (Auto) (1.0-6.0) % Eos % (Auto) (1.5-5.0) % Baso % (Auto) (0.0-3.0) % Gran # (1.4-6.5) Lymph # (Auto) (1.2-3.4) [place] # (Auto) (0.1-0.6) Eos # (Auto) (0.0-0.7) Baso # (Auto) (0.0-2.0) K/mm3 PT (9.4-12.5) SECONDS INR (0.93-1.08) Sodium (132-148) mmol/L Potassium (3.6-5.0) mmol/L Chloride (98-107) mmol/L Carbon Dioxide (21-33) mmol/L Anion Gap (10-20) BUN (7-21) mg/dL Creatinine (0.8-1.5) mg/dl Est GFR ( Amer) Est GFR (Non-Af Amer) POC Glucose (mg/dL) 98 (65-110) mg/dL Random Glucose (70-110) mg/dL Calcium (8.4-10.5) mg/dL Magnesium (1.7-2.2) mg/dL Total Bilirubin (0.2-1.3) mg/dL AST (17-59) U/L ALT (7-56) U/L Alkaline Phosphatase (38-126) U/L Ammonia (9-33) umol/L Total Creatine Kinase (35-230) U/L Total Protein (5.8-8.3) g/dL Albumin (3.0-4.8) g/dL Globulin gm/dL Albumin/Globulin Ratio (1.1-1.8) Hepatitis A IgM Ab (NEGATIVE) Hep Bs Antigen (NEGATIVE) Hep B Core IgM Ab (NEGATIVE) Hepatitis C Antibody (NEGATIVE) Blood Type A POSITIVE Blood Type Confirm A POSITIVE Antibody Screen Negative BBK History Checked No verified bt 12/10/17 12/10/17 12/10/17 Range/Units 08:08 07:00 07:00 WBC (4.5-11.0) 10^3/ul RBC (3.5-6.1) 10^6/uL Hgb (14.0-18.0) g/dL Hct (42.0-52.0) % MCV (80.0-105.0) fl MCH (25.0-35.0) pg MCHC (31.0-37.0) g/dl RDW (11.5-14.5) % Plt Count (120.0-450.0) 10^3/uL MPV (7.0-11.0) fl Gran % (50.0-68.0) % Lymph % (Auto) (22.0-35.0) % [place] % (Auto) (1.0-6.0) % Eos % (Auto) (1.5-5.0) % Baso % (Auto) (0.0-3.0) % Gran # (1.4-6.5) Lymph # (Auto) (1.2-3.4) [place] # (Auto) (0.1-0.6) Eos # (Auto) (0.0-0.7) Baso # (Auto) (0.0-2.0) K/mm3 PT 15.4 H (9.4-12.5) SECONDS INR 1.33 H (0.93-1.08) Sodium (132-148) mmol/L Potassium (3.6-5.0) mmol/L Chloride (98-107) mmol/L Carbon Dioxide (21-33) mmol/L Anion Gap (10-20) BUN (7-21) mg/dL Creatinine (0.8-1.5) mg/dl Est GFR ( Amer) Est GFR (Non-Af Amer) POC Glucose (mg/dL) 97 (65-110) mg/dL Random Glucose (70-110) mg/dL Calcium (8.4-10.5) mg/dL Magnesium (1.7-2.2) mg/dL Total Bilirubin (0.2-1.3) mg/dL AST (17-59) U/L ALT (7-56) U/L Alkaline Phosphatase (38-126) U/L Ammonia < 9 L (9-33) umol/L Total Creatine Kinase (35-230) U/L Total Protein (5.8-8.3) g/dL Albumin (3.0-4.8) g/dL Globulin gm/dL Albumin/Globulin Ratio (1.1-1.8) Hepatitis A IgM Ab (NEGATIVE) Hep Bs Antigen (NEGATIVE) Hep B Core IgM Ab (NEGATIVE) Hepatitis C Antibody (NEGATIVE) Blood Type Blood Type Confirm Antibody Screen BBK History Checked 12/10/17 12/10/17 12/10/17 Range/Units 07:00 07:00 05:30 WBC 4.2 L D (4.5-11.0) 10^3/ul RBC 3.12 L (3.5-6.1) 10^6/uL Hgb 9.3 L (14.0-18.0) g/dL Hct 28.6 L (42.0-52.0) % MCV 91.7 (80.0-105.0) fl MCH 29.8 (25.0-35.0) pg MCHC 32.5 (31.0-37.0) g/dl RDW 14.1 (11.5-14.5) % Plt Count 281 (120.0-450.0) 10^3/uL MPV 9.9 (7.0-11.0) fl Gran % 72.9 H (50.0-68.0) % Lymph % (Auto) 13.4 L (22.0-35.0) % [place] % (Auto) 9.7 H (1.0-6.0) % Eos % (Auto) 3.8 (1.5-5.0) % Baso % (Auto) 0.2 (0.0-3.0) % Gran # 3.09 (1.4-6.5) Lymph # (Auto) 0.6 L (1.2-3.4) [place] # (Auto) 0.4 (0.1-0.6) Eos # (Auto) 0.2 (0.0-0.7) Baso # (Auto) 0.01 (0.0-2.0) K/mm3 PT (9.4-12.5) SECONDS INR (0.93-1.08) Sodium 146 (132-148) mmol/L Potassium 3.5 L (3.6-5.0) mmol/L Chloride 109 H (98-107) mmol/L Carbon Dioxide 28 (21-33) mmol/L Anion Gap 13 (10-20) BUN 8 (7-21) mg/dL Creatinine 0.7 L (0.8-1.5) mg/dl Est GFR ( Amer) > 60 Est GFR (Non-Af Amer) > 60 POC Glucose (mg/dL) (65-110) mg/dL Random Glucose 103 (70-110) mg/dL Calcium 8.2 L (8.4-10.5) mg/dL Magnesium 2.1 (1.7-2.2) mg/dL Total Bilirubin 0.3 (0.2-1.3) mg/dL AST 31 (17-59) U/L ALT 58 H (7-56) U/L Alkaline Phosphatase 50 (38-126) U/L Ammonia (9-33) umol/L Total Creatine Kinase 126 (35-230) U/L Total Protein 4.5 L (5.8-8.3) g/dL Albumin 2.3 L (3.0-4.8) g/dL Globulin 2.3 gm/dL Albumin/Globulin Ratio 1.0 L (1.1-1.8) Hepatitis A IgM Ab Negative (NEGATIVE) Hep Bs Antigen Negative (NEGATIVE) Hep B Core IgM Ab Negative (NEGATIVE) Hepatitis C Antibody Negative (NEGATIVE) Blood Type Blood Type Confirm Antibody Screen BBK History Checked Laboratory Results - last 24 hr 12/10/17 12/10/17 12/10/17 05:30 07:00 07:00 WBC 4.2 L D RBC 3.12 L Hgb 9.3 L Hct 28.6 L MCV 91.7 MCH 29.8 MCHC 32.5 RDW 14.1 Plt Count 281 MPV 9.9 Gran % 72.9 H Lymph % (Auto) 13.4 L [place] % (Auto) 9.7 H Eos % (Auto) 3.8 Baso % (Auto) 0.2 Gran # 3.09 Lymph # (Auto) 0.6 L [place] # (Auto) 0.4 Eos # (Auto) 0.2 Baso # (Auto) 0.01 PT INR Sodium 146 Potassium 3.5 L Chloride 109 H Carbon Dioxide 28 Anion Gap 13 BUN 8 Creatinine 0.7 L Est GFR ( Amer) > 60 Est GFR (Non-Af Amer) > 60 POC Glucose (mg/dL) Random Glucose 103 Calcium 8.2 L Magnesium 2.1 Total Bilirubin 0.3 AST 31 ALT 58 H Alkaline Phosphatase 50 Ammonia Total Creatine Kinase 126 Total Protein 4.5 L Albumin 2.3 L Globulin 2.3 Albumin/Globulin Ratio 1.0 L Hepatitis A IgM Ab Negative Hep Bs Antigen Negative Hep B Core IgM Ab Negative Hepatitis C Antibody Negative Blood Type Blood Type Confirm Antibody Screen BBK History Checked 12/10/17 12/10/17 12/10/17 07:00 07:00 08:08 WBC RBC Hgb Hct MCV MCH MCHC RDW Plt Count MPV Gran % Lymph % (Auto) [place] % (Auto) Eos % (Auto) Baso % (Auto) Gran # Lymph # (Auto) [place] # (Auto) Eos # (Auto) Baso # (Auto) PT 15.4 H INR 1.33 H Sodium Potassium Chloride Carbon Dioxide Anion Gap BUN Creatinine Est GFR ( Amer) Est GFR (Non-Af Amer) POC Glucose (mg/dL) 97 Random Glucose Calcium Magnesium Total Bilirubin AST ALT Alkaline Phosphatase Ammonia < 9 L Total Creatine Kinase Total Protein Albumin Globulin Albumin/Globulin Ratio Hepatitis A IgM Ab Hep Bs Antigen Hep B Core IgM Ab Hepatitis C Antibody Blood Type Blood Type Confirm Antibody Screen BBK History Checked 12/10/17 12/10/17 12/10/17 09:56 11:00 11:53 WBC RBC Hgb Hct MCV MCH MCHC RDW Plt Count MPV Gran % Lymph % (Auto) [place] % (Auto) Eos % (Auto) Baso % (Auto) Gran # Lymph # (Auto) [place] # (Auto) Eos # (Auto) Baso # (Auto) PT INR Sodium Potassium Chloride Carbon Dioxide Anion Gap BUN Creatinine Est GFR ( Amer) Est GFR (Non-Af Amer) POC Glucose (mg/dL) 98 Random Glucose Calcium Magnesium Total Bilirubin AST ALT Alkaline Phosphatase Ammonia Total Creatine Kinase Total Protein Albumin Globulin Albumin/Globulin Ratio Hepatitis A IgM Ab Hep Bs Antigen Hep B Core IgM Ab Hepatitis C Antibody Blood Type A POSITIVE Blood Type Confirm A POSITIVE Antibody Screen Negative BBK History Checked No verified bt 12/10/17 12/10/17 12/11/17 16:42 22:21 06:10 WBC RBC Hgb Hct MCV MCH MCHC RDW Plt Count MPV Gran % Lymph % (Auto) [place] % (Auto) Eos % (Auto) Baso % (Auto) Gran # Lymph # (Auto) [place] # (Auto) Eos # (Auto) Baso # (Auto) PT INR Sodium Potassium Chloride Carbon Dioxide Anion Gap BUN Creatinine Est GFR ( Amer) Est GFR (Non-Af Amer) POC Glucose (mg/dL) 113 H 107 98 Random Glucose Calcium Magnesium Total Bilirubin AST ALT Alkaline Phosphatase Ammonia Total Creatine Kinase Total Protein Albumin Globulin Albumin/Globulin Ratio Hepatitis A IgM Ab Hep Bs Antigen Hep B Core IgM Ab Hepatitis C Antibody Blood Type Blood Type Confirm Antibody Screen BBK History Checked Fingerstick Blood Sugar Results: 98 Results Reviewed to Date: Yes Critical Care Progress Note - Ventilator Checklist Head of Bed 30 Degrees: Yes Daily Sedation Vacation: Yes Daily Assessment of Readiness to Wean: Yes Daily Spontaneous Breathing Trial: Yes PUD Prophalyxis: Yes DVT Prophylaxis: Yes Oral Care with Chlorhexidine Gluconate {CHG}: Yes - Vent Settings MODE:: PRVC TIDAL VOLUME:: 400 RESP RATE:: 18 FIO2:: 50 PEEP:: 5 - Extremities/Vascular Does the Patient have a Central Venous Catheter?: No Does the Patient need a Central Venous Catheter?: No Does the Patient have a Mackenzie Catheter?: Yes Does the Patient need a Mackenzie Catheter?: Yes Catheter Insertion Criteria: Need for accurate measurement of output in critically ill patient - Restraints Justification for Restraints: High risk for self extubation - Prophylaxis GI Prophylaxis GI: PPI - Prophylaxis DVT Prophylaxis DVT: Heparin SQ Assessment/Plan - Assessment and Plan (Free Text) Assessment: Patient is a 62 yo M with PMHx of Bipolar disorder and ETOH abuse in ICU for DTs 2/2 ETOH withdrawal. s/p intubation for airway protection. Patient's admission was complicated with rhabdomyolisis, hospital acquired pneumonia for which patient was treated for. Multiple attempts were made to wean patient off of sedation and vents, however patient's mental status remains poor. Patient underwent peg placement, will get trach today for possible ltac placement. Plan: Neuro: AMS due to delirium tremors due to chronic alcoholism. - Intubated and sedated on precedex - will continue attempting to wean off sedation daily - On ativan prn - On Propranolol and Cyprohepatadine for tremor, - continue thiamine, folic acid and multivitamin supplements - Neuro following, EEG x2, with repeat revealing subclinical seizures. - Psych following, on seroquel - on valproic acid and keppra for seizure prophylaxis. - Continue seizure precaution. - Head of bed above 35 degrees. Pulm: Initially intubated for airway protection. Had HAP for which patient was treated for. Protective lung ventilation strategy, HOB elevated, daily oral care, and aspiration precautions Continue with bronchodilators. Failed multiple attempts of ventilation weaning. Scheduled for trach today for possible LTAC. Cardio: Stable, - Maintain MAP> 65mmHg - Hydralazine PRN for BP control - Also on Propranolol for tremors. GI: NPO for trach today, resume peg tube feeding after. Heme: stable, will monitor for now. Nephro: No signs of renal failure, maintain euglycemia. ID: HAP - afebrile over 24 hours, no leukocytosis, cultures with no growth, yeast growing on sputum. - on tobramycin, merrem and vanco as per ID. GI ppx: Protonix DVT ppx: Heparin SC and SCDs Dispo: s/p peg, getting trach today, alf plan for possible ltac. Patient was seen, examined, and discussed with the cylinder valve repairer. - Date & Time Date: 12/11/17 Time: 12:40 <Mike Velez - Last Filed: 12/11/17 16:37> CCU Objective - Vital Signs / Intake & Output Vital Signs (Last 4 hours): Vital Signs Pulse BP Pulse Ox 12/11/17 14:02 74 131/71 100 12/11/17 14:00 68 99 12/11/17 13:00 70 104/62 98 Intake and Output (Last 8hrs): Intake & Output 12/11/17 12/11/17 12/11/17 06:59 14:59 22:59 Intake Total 2250 200 Output Total 2500 Balance -250 200 Weight 187 lb 6.287 oz Intake: IV 2150 200 Right Upper arm 1950 Tube Feeding 100 Output: Urine 2500 Urethral (Mackenzie) 2500 - Medications Active Medications: Active Medications Generic Name Dose Route Start Last Admin Trade Name Freq PRN Reason Stop Dose Admin Acetaminophen 650 mg 12/05/17 12:27 Tylenol 650 Mg Supp RC Q6H PRN Fever >100.4 F Ascorbic Acid 500 mg 11/28/17 11:30 12/11/17 09:18 Vitamin C 500 Mg Tab PO 500 mg DAILY SHIV Administration Bacitracin 1 ea 11/28/17 08:51 11/28/17 09:34 Bacitracin TOP 1 ea Q6 PRN Administration Swelling Cyproheptadine HCl 4 mg 12/05/17 11:15 12/11/17 13:54 Periactin PO 4 mg Q8H SHIV Administration Docusate Sodium 100 mg 12/05/17 18:00 12/11/17 09:20 Colace Liquid PO 100 mg BID SHIV Administration Folic Acid 1 mg 12/01/17 10:15 12/11/17 09:18 Folic Acid PO 1 mg DAILY SHIV Administration Heparin Sodium (Porcine) 5,000 units 12/03/17 08:15 12/11/17 14:19 Heparin SC 5,000 units Q8 SHIV Administration Protocol Hydralazine HCl 10 mg 11/29/17 14:56 12/02/17 12:56 Apresoline IVP 10 mg Q6 PRN Administration give if SBP >160 Dexmedetomidine HCl 400 mcg in 100 mls @ 3.629 mls/hr 11/26/17 09:21 14:09 Precedex 400mcg/100ml IV 1.5 mcg/kg/hr .Q24H PRN 27.216 mls/hr Agitation Administration Protocol 0.2 MCG/KG/HR Meropenem 500 mg/ Sodium 100 mls @ 100 mls/hr 12/04/17 22:00 12/11/17 13:58 Chloride IVPB 100 mls/hr Q8 SHIV Administration Protocol Vancomycin HCl 1 gm in 250 mls @ 166.667 mls/hr 12/08/17 10:26 12/11/17 13:00 Vancomycin 1gm IVPB 166.667 mls/hr Q12H SHIV Administration Protocol Propofol 1,000 mg in 100 mls @ 2.671 mls/hr 12/09/17 11:34 12/11/17 03:53 Diprivan IV 25 mcg/kg/min .Q24H PRN 13.356 mls/hr TITRATE PER MD ORDER Administration Protocol 5 MCG/KG/MIN Sodium Chloride 1,000 mls @ 100 mls/hr 12/09/17 12:45 12/10/17 07:09 Sodium Chloride 0.9% IV 100 mls/hr .Q10H SHIV Administration Insulin Human Lispro 0 units 11/26/17 09:00 12/11/17 05:00 Humalog Low SC Not Given Q6H SHIV Protocol Levalbuterol HCl 0.63 mg 12/02/17 09:55 12/11/17 13:31 Xopenex IH 0.63 mg [id number] PRN Administration Shortness of Breath Levetiracetam 750 mg 12/04/17 22:00 12/11/17 09:17 Keppra PO 750 mg Q12 SHIV Administration Lorazepam 4 mg 12/08/17 15:11 12/11/17 14:20 Ativan IVP 4 mg Q4 PRN Administration Agitation Protocol Multivitamins/Minerals 1 tab 11/29/17 08:00 12/11/17 09:18 Therapeutic-M Tab PO 1 tab 0800 SHIV Administration Pantoprazole Sodium 40 mg 11/22/17 10:00 12/11/17 09:23 Protonix Inj IVP 40 mg DAILY SHIV Administration Polyethylene Glycol 17 gm 12/05/17 18:00 12/11/17 09:17 Miralax PO 17 gm BID SHIV Administration Propranolol HCl 40 mg 12/05/17 11:00 12/11/17 09:12 Inderal PO 40 mg BID SHIV Administration Quetiapine Fumarate 25 mg 12/09/17 11:45 Seroquel PO BID SHIV Protocol Thiamine HCl 100 mg 11/28/17 14:00 12/11/17 09:17 Vitamin B1 Tab PO 100 mg TID SHIV Administration Tobramycin Sulfate 0.08 gm 12/05/17 11:00 12/11/17 07:44 Tobramycin Inj IH 0.08 gm [id number] SHIV Administration Valproate Sodium 750 mg 12/09/17 22:00 12/11/17 09:11 Depakene Oral Soln PO 750 mg Q12 SHIV Administration - Patient Studies Lab Studies: Lab Studies 12/11/17 12/11/17 12/11/17 Range/Units 06:10 05:50 05:50 WBC 6.4 D (4.5-11.0) 10^3/ul RBC 3.77 (3.5-6.1) 10^6/uL Hgb 11.2 L (14.0-18.0) g/dL Hct 34.4 L (42.0-52.0) % MCV 91.2 (80.0-105.0) fl MCH 29.7 (25.0-35.0) pg MCHC 32.6 (31.0-37.0) g/dl RDW 13.8 (11.5-14.5) % Plt Count 398 (120.0-450.0) 10^3/uL MPV 10.3 (7.0-11.0) fl Gran % 72.9 H (50.0-68.0) % Lymph % (Auto) 14.0 L (22.0-35.0) % [place] % (Auto) 10.3 H (1.0-6.0) % Eos % (Auto) 2.5 (1.5-5.0) % Baso % (Auto) 0.3 (0.0-3.0) % Gran # 4.68 (1.4-6.5) Lymph # (Auto) 0.9 L (1.2-3.4) [place] # (Auto) 0.7 H (0.1-0.6) Eos # (Auto) 0.2 (0.0-0.7) Baso # (Auto) 0.02 (0.0-2.0) K/mm3 Sodium 145 (132-148) mmol/L Potassium 4.2 (3.6-5.0) mmol/L Chloride 107 (98-107) mmol/L Carbon Dioxide 28 (21-33) mmol/L Anion Gap 14 (10-20) BUN 8 (7-21) mg/dL Creatinine 0.7 L (0.8-1.5) mg/dl Est GFR ( Amer) > 60 Est GFR (Non-Af Amer) > 60 POC Glucose (mg/dL) 98 (65-110) mg/dL Random Glucose 97 (70-110) mg/dL Calcium 8.6 (8.4-10.5) mg/dL Phosphorus 3.7 (2.5-4.5) mg/dL Magnesium 2.2 (1.7-2.2) mg/dL Total Bilirubin 0.5 (0.2-1.3) mg/dL AST 43 (17-59) U/L ALT 62 H (7-56) U/L Alkaline Phosphatase 61 (38-126) U/L Total Protein 5.3 L (5.8-8.3) g/dL Albumin 2.7 L (3.0-4.8) g/dL Globulin 2.6 gm/dL Albumin/Globulin Ratio 1.1 (1.1-1.8) 12/10/17 12/10/17 Range/Units 22:21 16:42 WBC (4.5-11.0) 10^3/ul RBC (3.5-6.1) 10^6/uL Hgb (14.0-18.0) g/dL Hct (42.0-52.0) % MCV (80.0-105.0) fl MCH (25.0-35.0) pg MCHC (31.0-37.0) g/dl RDW (11.5-14.5) % Plt Count (120.0-450.0) 10^3/uL MPV (7.0-11.0) fl Gran % (50.0-68.0) % Lymph % (Auto) (22.0-35.0) % [place] % (Auto) (1.0-6.0) % Eos % (Auto) (1.5-5.0) % Baso % (Auto) (0.0-3.0) % Gran # (1.4-6.5) Lymph # (Auto) (1.2-3.4) [place] # (Auto) (0.1-0.6) Eos # (Auto) (0.0-0.7) Baso # (Auto) (0.0-2.0) K/mm3 Sodium (132-148) mmol/L Potassium (3.6-5.0) mmol/L Chloride (98-107) mmol/L Carbon Dioxide (21-33) mmol/L Anion Gap (10-20) BUN (7-21) mg/dL Creatinine (0.8-1.5) mg/dl Est GFR ( Amer) Est GFR (Non-Af Amer) POC Glucose (mg/dL) 107 113 H (65-110) mg/dL Random Glucose (70-110) mg/dL Calcium (8.4-10.5) mg/dL Phosphorus (2.5-4.5) mg/dL Magnesium (1.7-2.2) mg/dL Total Bilirubin (0.2-1.3) mg/dL AST (17-59) U/L ALT (7-56) U/L Alkaline Phosphatase (38-126) U/L Total Protein (5.8-8.3) g/dL Albumin (3.0-4.8) g/dL Globulin gm/dL Albumin/Globulin Ratio (1.1-1.8) Laboratory Results - last 24 hr 12/10/17 12/10/17 12/11/17 16:42 22:21 05:50 WBC 6.4 D RBC 3.77 Hgb 11.2 L Hct 34.4 L MCV 91.2 MCH 29.7 MCHC 32.6 RDW 13.8 Plt Count 398 MPV 10.3 Gran % 72.9 H Lymph % (Auto) 14.0 L [place] % (Auto) 10.3 H Eos % (Auto) 2.5 Baso % (Auto) 0.3 Gran # 4.68 Lymph # (Auto) 0.9 L [place] # (Auto) 0.7 H Eos # (Auto) 0.2 Baso # (Auto) 0.02 Sodium Potassium Chloride Carbon Dioxide Anion Gap BUN Creatinine Est GFR ( Amer) Est GFR (Non-Af Amer) POC Glucose (mg/dL) 113 H 107 Random Glucose Calcium Phosphorus Magnesium Total Bilirubin AST ALT Alkaline Phosphatase Total Protein Albumin Globulin Albumin/Globulin Ratio 12/11/17 12/11/17 05:50 06:10 WBC RBC Hgb Hct MCV MCH MCHC RDW Plt Count MPV Gran % Lymph % (Auto) [place] % (Auto) Eos % (Auto) Baso % (Auto) Gran # Lymph # (Auto) [place] # (Auto) Eos # (Auto) Baso # (Auto) Sodium 145 Potassium 4.2 Chloride 107 Carbon Dioxide 28 Anion Gap 14 BUN 8 Creatinine 0.7 L Est GFR ( Amer) > 60 Est GFR (Non-Af Amer) > 60 POC Glucose (mg/dL) 98 Random Glucose 97 Calcium 8.6 Phosphorus 3.7 Magnesium 2.2 Total Bilirubin 0.5 AST 43 ALT 62 H Alkaline Phosphatase 61 Total Protein 5.3 L Albumin 2.7 L Globulin 2.6 Albumin/Globulin Ratio 1.1 Critical Care Progress Note - Nutrition Nutrition: Nutrition Category Date Time Status NPO Diet [DIET] Diets 12/11/17 Breakfast Ordered Attending/Attestation - Attestation I have personally seen and examined this patient.: Yes I have fully participated in the care of the patient.: Yes I have reviewed all pertinent clinical information: Yes
--- NOTE | 2017-12-11 07:09 | RAD ---
HISTORY: intubated COMPARISON: Portable chest 12/10/2017 FINDINGS: Endotracheal tube is unchanged in position with right PICC appearing advanced to terminate at the right atrium. Withdrawal 5-6 cm recommended. Left central venous line not identified currently. LUNGS: Medial right basilar airspace disease appears slightly increased and is significantly diminished at the medial left base. PLEURA: Trace right pleural effusion again evident without change. No left pleural effusion. No pneumothorax bilaterally. CARDIOVASCULAR: Cardiac silhouette appears stable. Hilar vascular markings are not significantly changed. OSSEOUS STRUCTURES: No significant abnormalities. VISUALIZED UPPER ABDOMEN: Normal. OTHER FINDINGS: None. IMPRESSION: Mild increase in limited right medial basilar atelectasis or infiltrate with diminished airspace disease at the left base medially. Stable minimal right pleural effusion. Left central venous line not identified currently. Right PICC appears advanced into the right atrium region. Retraction advised into the superior vena cava.
[2017-12-11] MEDS: Levalbuterol 0.63 MG/3 ML Inhal Soln UD IH PRN ×2 (07:16→13:31)
[2017-12-11 07:20] LABS: ALB/GLOB RATIO 1.1 (1.1-1.8); ALBUMIN 2.7 g/dL (3.0-4.8); ALT/SGPT 62 U/L (7-56); AST/SGOT 43 U/L (17-59); BLOOD UREA NITROGEN 8 mg/dL (7-21); CALCIUM 8.6 mg/dL (8.4-10.5); GFR AFRICAN-AMERICAN > 60; GFR NON-AFRICAN AMERICAN > 60; MAGNESIUM 2.2 mg/dL (1.7-2.2)
[2017-12-11] MEDS: Tobramycin 1.2 gm Inj IH SCH ×2 (07:44→21:32)
[2017-12-11] MEDS: Valproic Acid 250 mg/5 ml UD Cup PO SCH ×2 (09:11→22:50)
[2017-12-11] MEDS: POLYETHYLENE GLYCOL 3350 17 GM/Dose PACKET PO SCH ×2 (09:17→18:00)
[2017-12-11] MEDS: levETIRAcetam 500 mg/5ml UD cups PO SCH ×2 (09:17→22:50)
[2017-12-11] MEDS: Multivitamin With Minerals Tab PO SCH (09:18)
[2017-12-11] MEDS ORDERED: Lidocaine 1% w Epi 1:100,000 Inj ONE (10:47)
[2017-12-11] MEDS ORDERED: Rocuronium 10 mg/ml (5 ml) ONE (11:03)
--- NOTE | 2017-12-11 12:33 | PCM.SURG1 ---
Surgeon's Initial Post Op Note - Surgeon's Notes Surgeon: Dr. Hicks Hand Bender: Maddie Echeverria, PGY2 Type of Anesthesia: General Endo Anesthesia Administered By: Sharona Pre-Operative Diagnosis: respiratory failure dependence on mechanical ventilation Operative Findings: normal tracheal anatomy, isthmus of thryoid overlying tracheal rings Post-Operative Diagnosis: same Operation Performed: isthmusectomy, open tracheostomy tube insertion Specimen/Specimens Removed: none Estimated Blood Loss: EBL {In ML}: 5 Blood Products Given: N/A Drains Used: Ostomy Device (#6 tracheostomy ) Date of Surgery/Procedure: 12/11/17 Time of Surgery/Procedure: 10:30
--- NOTE | 2017-12-11 12:35 | CP.PCM.PN ---
<FranchescaSarkis roe - Last Filed: 12/11/17 12:32> Subjective - Date & Time of Evaluation Date of Evaluation: 12/11/17 Time of Evaluation: 07:00 - Subjective Subjective: Medicine progress note for Dr. Chaparro Hospitalist Service Patient seen and examined at bedside. Patient remains intubated and sedated on Precedex and Propofol drips. Cannot obtain ROS. Patient is for tracheostomy placement later today. Objective - Vital Signs/Intake and Output Vital Signs (last 24 hours): Temp Pulse Resp BP Pulse Ox 98.8 F 89 28 H 147/74 100 12/11/17 04:00 12/11/17 10:00 12/11/17 07:21 12/11/17 09:12 12/11/17 08:00 Intake and Output: 12/11/17 12/11/17 06:59 18:59 Intake Total 2450 Output Total 2500 Balance -50 - Medications Medications: Current Medications Acetaminophen (Tylenol 650 Mg Supp) 650 mg RC Q6H PRN PRN Reason: Fever >100.4 F Ascorbic Acid (Vitamin C 500 Mg Tab) 500 mg PO DAILY [facility] Last Admin: 12/11/17 09:18 Dose: 500 mg Bacitracin (Bacitracin) 1 ea TOP Q6 PRN PRN Reason: Swelling Last Admin: 11/28/17 09:34 Dose: 1 ea Cyproheptadine HCl (Periactin) 4 mg PO Q8H [facility] Last Admin: 12/11/17 00:00 Dose: 4 mg Docusate Sodium (Colace Liquid) 100 mg PO BID [facility] Last Admin: 12/11/17 09:20 Dose: 100 mg Folic Acid (Folic Acid) 1 mg PO DAILY [facility] Last Admin: 12/11/17 09:18 Dose: 1 mg Heparin Sodium (Porcine) (Heparin) 5,000 units SC Q8 SHIV PRN Reason: Protocol Last Admin: 12/11/17 05:03 Dose: 5,000 units Hydralazine HCl (Apresoline) 10 mg IVP Q6 PRN PRN Reason: give if SBP >160 Last Admin: 12/02/17 12:56 Dose: 10 mg Dexmedetomidine HCl (Precedex 400mcg/100ml) 400 mcg in 100 mls @ 3.629 mls/hr IV .Q24H PRN; Protocol; 0.2 MCG/KG/HR PRN Reason: Agitation Last Admin: 12/11/17 03:54 Dose: 1.5 mcg/kg/hr, 27.216 mls/hr Meropenem 500 mg/ Sodium (Chloride) 100 mls @ 100 mls/hr IVPB Q8 SHIV PRN Reason: Protocol Last Admin: 12/11/17 05:03 Dose: 100 mls/hr Vancomycin HCl (Vancomycin 1gm) 1 gm in 250 mls @ 166.667 mls/hr IVPB Q12H [facility]IV PRN Reason: Protocol Last Admin: 12/10/17 22:30 Dose: 166.667 mls/hr Propofol (Diprivan) 1,000 mg in 100 mls @ 2.671 mls/hr IV .Q24H PRN; Protocol; 5 MCG/KG/MIN PRN Reason: TITRATE PER MD ORDER Last Admin: 12/11/17 03:53 Dose: 25 mcg/kg/min, 13.356 mls/hr Sodium Chloride (Sodium Chloride 0.9%) 1,000 mls @ 100 mls/hr IV .Q10H [facility] Last Admin: 12/10/17 07:09 Dose: 100 mls/hr Insulin Human Lispro (Humalog Low) 0 units SC Q6H [facility]IV PRN Reason: Protocol Last Admin: 12/11/17 05:00 Dose: Not Given Levalbuterol HCl (Xopenex) 0.63 mg IH [id number] PRN PRN Reason: Shortness of Breath Last Admin: 12/11/17 07:16 Dose: 0.63 mg Levetiracetam (Keppra) 750 mg PO Q12 [facility] Last Admin: 12/11/17 09:17 Dose: 750 mg Lorazepam (Ativan) 4 mg IVP Q4 PRN; Protocol PRN Reason: Agitation Last Admin: 12/11/17 09:38 Dose: 4 mg Multivitamins/Minerals (Therapeutic-M Tab) 1 tab PO 0800 [facility] Last Admin: 12/11/17 09:18 Dose: 1 tab Pantoprazole Sodium (Protonix Inj) 40 mg IVP DAILY [facility] Last Admin: 12/11/17 09:23 Dose: 40 mg Polyethylene Glycol (Miralax) 17 gm PO BID [facility] Last Admin: 12/11/17 09:17 Dose: 17 gm Propranolol HCl (Inderal) 40 mg PO BID [facility] Last Admin: 12/11/17 09:12 Dose: 40 mg Quetiapine Fumarate (Seroquel) 25 mg PO BID [facility] PRN Reason: Protocol Thiamine HCl (Vitamin B1 Tab) 100 mg PO TID [facility] Last Admin: 12/11/17 09:17 Dose: 100 mg Tobramycin Sulfate (Tobramycin Inj) 0.08 gm IH [id number] [facility] Last Admin: 12/11/17 07:44 Dose: 0.08 gm Valproate Sodium (Depakene Oral Soln) 750 mg PO Q12 [facility] Last Admin: 12/11/17 09:11 Dose: 750 mg - Labs Labs: 12/11/17 05:50 12/11/17 05:50 PT 15.4 SECONDS (9.4-12.5) H 12/10/17 07:00 INR 1.33 (0.93-1.08) H 12/10/17 07:00 - Constitutional Appears: Chronically Ill - Head Exam Head Exam: ATRAUMATIC, NORMOCEPHALIC - Eye Exam Eye Exam: Normal appearance - ENT Exam ENT Exam: Mucous Membranes Moist Additional comments: Endotracheal tube in place - Respiratory Exam Respiratory Exam: absent: Rales, Rhonchi, Wheezes Additional comments: Coarse breath sounds bilaterally. On mechanical ventilation 50% FiO2, PEEP 5, Tidal Volume 400, Respiratory rate 18 - Cardiovascular Exam Cardiovascular Exam: REGULAR RHYTHM, +S1, +S2 - GI/Abdominal Exam GI & Abdominal Exam: Soft, Normal Bowel Sounds. absent: Distended, Tenderness Additional comments: PEG tube in place on left side of the abdomen. No obvious signs of infection from site of insertion - Exam Additional comments: mackenzie in place draining light yellow urine - Extremities Exam Additional comments: Right arm PICC line in place with no obvious signs of infection Upper and lower extremities with non-pitting edema Blisters on right hand - Neurological Exam Neurological Exam: Altered - Skin Skin Exam: Warm Assessment and Plan - Assessment and Plan (Free Text) Assessment: 62 year old male with PMHx of Bipolar disorder and ETOH abuse in ICU for DTs. Patient initially admitted to psych for suicidal ideation then transferred to in -patient due to severe ETOH withdrawal with DTs requiring high-dose sedation and intubation. Subclinical seizure noted on EEG performed on 11/30/17. Fevers likely due to DTs versus developing RLL consolidation and pleural effusion seen on CXR. Repeat EEG showing artifact likely from hand tremors. Patient's sister Bindu Ashton ([phone]) was able to get in touch with the critical care team and advocate for PEG placement, and she will be the healthcare proxy from this point forward. PEG placed on 12/09/17, and patient is for trach placement later today. Plan: 1. ETOH withdrawal with Delirium Tremens - Intubated and sedated currently on precedex and diprivan. Vent settings as follows: 50% FiO2, PEEP 5, Tidal Volume 400, Respiratory rate 18 - Neuro consulted- recs appreciated - Continue CIWA protocol, seizure precaution, aspiration precaution - Ativan 4 mg IV prn agitation - Head CT negative for acute pathology - EEG with subclinical seizure seen; neurology recommends repeat EEG - IV Depakote and Keppra on board for seizure prophylaxis and mood stabilization - MRI brain showed persistent bilateral maxially, ethomoid and sphenoid sinusitis with mastoid effusions - Plan for PEG later today per GI 2. Altered Mental Status, currently being sedated for DT's - CT head was unremarkable - thiamine increased to protect against encephalopathy - EEG with subclinical seizure seen however repeat EEG does not show this. It shows artifact likely caused by patient's hand tremors. - Per neurology, agitation possibly manifestation of patient's psychiatric illnesses. Seroquel was started and mood stabilizers were increased in dosages. 3. Right lower lobe consolidations secondary to HCAP - Seen on CXR and worsening, with pleural effusion as well - Possible pneumonia with pleural effusion versus atelectasis - Treated with Merrem and Vancomycin 4. Sinusitis - seen on MRI - Continue to treat with Inhaled Tobramycin 5. Blisters on hands - Multivitamin, vit C and Zinc added - Bacitracin ointment to be applied 6. Rhabdomyolysis - likely secondary to DT's - renal function has not been affected - CPK markedly elevated but is now downtrending - will monitor 7. Fever, suspected due to pneumonia - Possibly secondary to ETOH withdrawals - ID consult, appreciate recs - Currently afebrile - Follow up septic workup - negative Lower Extremity ultrasound - no vegetations seen on echo -Remeron as a cause of suspected but unlikely serotonin syndrome; cyproheptadine and propranolol started 8. Electrolyte imbalance - monitor and replete as needed 9. Transaminitis Due to chronic alcohol abuse, will discuss alcohol cessation with patient once no longer sedated. 10. Prophylaxis - SCDs - Aspiration precautions - Seizure precautions - Heparin SC - Protonix Disposition: Remains intubated for now (Vent settings: 50% FiO2, PEEP 5, Tidal Volume 400, Respiratory rate 18). Right arm PICC line in place. Continue to attempt weaning off of ventilation support. Trach placement later today with Dr. Hicks. Follow up with case management team for discharge planning. Discussed and seen with Dr. Chaparro <Charlotte Chaparro - Last Filed: 12/11/17 16:12> Objective - Vital Signs/Intake and Output Vital Signs (last 24 hours): Temp Pulse Resp BP Pulse Ox 98.8 F 74 28 H 131/71 100 12/11/17 04:00 12/11/17 14:02 12/11/17 07:21 12/11/17 14:02 12/11/17 14:02 Intake and Output: 12/11/17 12/11/17 06:59 18:59 Intake Total 2450 200 Output Total 2500 Balance -50 200 - Medications Medications: Current Medications Acetaminophen (Tylenol 650 Mg Supp) 650 mg RC Q6H PRN PRN Reason: Fever >100.4 F Ascorbic Acid (Vitamin C 500 Mg Tab) 500 mg PO DAILY [facility] Last Admin: 12/11/17 09:18 Dose: 500 mg Bacitracin (Bacitracin) 1 ea TOP Q6 PRN PRN Reason: Swelling Last Admin: 11/28/17 09:34 Dose: 1 ea Cyproheptadine HCl (Periactin) 4 mg PO Q8H [facility] Last Admin: 12/11/17 13:54 Dose: 4 mg Docusate Sodium (Colace Liquid) 100 mg PO BID [facility] Last Admin: 12/11/17 09:20 Dose: 100 mg Folic Acid (Folic Acid) 1 mg PO DAILY [facility] Last Admin: 12/11/17 09:18 Dose: 1 mg Heparin Sodium (Porcine) (Heparin) 5,000 units SC Q8 [facility] PRN Reason: Protocol Last Admin: 12/11/17 14:19 Dose: 5,000 units Hydralazine HCl (Apresoline) 10 mg IVP Q6 PRN PRN Reason: give if SBP >160 Last Admin: 12/02/17 12:56 Dose: 10 mg Dexmedetomidine HCl (Precedex 400mcg/100ml) 400 mcg in 100 mls @ 3.629 mls/hr IV .Q24H PRN; Protocol; 0.2 MCG/KG/HR PRN Reason: Agitation Last Admin: 12/11/17 14:09 Dose: 1.5 mcg/kg/hr, 27.216 mls/hr Meropenem 500 mg/ Sodium (Chloride) 100 mls @ 100 mls/hr IVPB Q8 [facility] PRN Reason: Protocol Last Admin: 12/11/17 13:58 Dose: 100 mls/hr Vancomycin HCl (Vancomycin 1gm) 1 gm in 250 mls @ 166.667 mls/hr IVPB Q12H [facility] PRN Reason: Protocol Last Admin: 12/11/17 13:00 Dose: 166.667 mls/hr Propofol (Diprivan) 1,000 mg in 100 mls @ 2.671 mls/hr IV .Q24H PRN; Protocol; 5 MCG/KG/MIN PRN Reason: TITRATE PER MD ORDER Last Admin: 12/11/17 03:53 Dose: 25 mcg/kg/min, 13.356 mls/hr Sodium Chloride (Sodium Chloride 0.9%) 1,000 mls @ 100 mls/hr IV .Q10H [facility] Last Admin: 12/10/17 07:09 Dose: 100 mls/hr Insulin Human Lispro (Humalog Low) 0 units SC Q6H [facility] PRN Reason: Protocol Last Admin: 12/11/17 05:00 Dose: Not Given Levalbuterol HCl (Xopenex) 0.63 mg IH [id number] PRN PRN Reason: Shortness of Breath Last Admin: 12/11/17 13:31 Dose: 0.63 mg Levetiracetam (Keppra) 750 mg PO Q12 [facility] Last Admin: 12/11/17 09:17 Dose: 750 mg Lorazepam (Ativan) 4 mg IVP Q4 PRN; Protocol PRN Reason: Agitation Last Admin: 12/11/17 14:20 Dose: 4 mg Multivitamins/Minerals (Therapeutic-M Tab) 1 tab PO 0800 [facility] Last Admin: 12/11/17 09:18 Dose: 1 tab Pantoprazole Sodium (Protonix Inj) 40 mg IVP DAILY [facility] Last Admin: 12/11/17 09:23 Dose: 40 mg Polyethylene Glycol (Miralax) 17 gm PO BID [facility] Last Admin: 12/11/17 09:17 Dose: 17 gm Propranolol HCl (Inderal) 40 mg PO BID [facility] Last Admin: 12/11/17 09:12 Dose: 40 mg Quetiapine Fumarate (Seroquel) 25 mg PO BID [facility] PRN Reason: Protocol Thiamine HCl (Vitamin B1 Tab) 100 mg PO TID [facility] Last Admin: 12/11/17 09:17 Dose: 100 mg Tobramycin Sulfate (Tobramycin Inj) 0.08 gm IH [id number] [facility] Last Admin: 12/11/17 07:44 Dose: 0.08 gm Valproate Sodium (Depakene Oral Soln) 750 mg PO Q12 [facility] Last Admin: 12/11/17 09:11 Dose: 750 mg - Labs Labs: 12/11/17 05:50 12/11/17 05:50 PT 15.4 SECONDS (9.4-12.5) H 12/10/17 07:00 INR 1.33 (0.93-1.08) H 12/10/17 07:00 Attending/Attestation - Attestation I have personally seen and examined this patient.: Yes I have fully participated in the care of the patient.: Yes I have reviewed all pertinent clinical information, including history, physical exam and plan: Yes Notes (Text): 12/11/17 16:11 attending note; Patient seen and examined with the resident in ICU. patient is a 62 year old male with history of bipolar disorder and chronic alcohol abuse is admitted for alcohol withdrawal and delirium tremens. Currently intubated. s/p PEG placement and Mid line placement yesterday. continue feeding. Chronic Unsuccessful weaning trial. Continue ventilator support. Possible trach today. Pneumonia; CXR reveals RLL consolidation. Patient is on Meropenem, vancomycin and tobramycin. UDS negative. Echo did not reveal any vegetation. will complete 7-[address] head was negative. Will continue Ativan. EEG revealed subclinical seizure on keppra. case discussed with psychiatric social worker in detail for discharge planning. Paperwork completed. patient requires LTAC placement. Monitor closely in ICU.
[2017-12-11] MEDS: Vancomycin 1gm in NS 250ml 1 GM/250 ML BAG IVPB SCH ×2 (13:00→22:51)
--- NOTE | 2017-12-11 13:25 | RAD ---
HISTORY: s/p tracheostomy tube placement COMPARISON: 12/11/2017 FINDINGS: LUNGS: No active pulmonary disease. PLEURA: There is a small right pleural effusion CARDIOVASCULAR: Mild cardiomegaly OSSEOUS STRUCTURES: No significant abnormalities. VISUALIZED UPPER ABDOMEN: Normal. OTHER FINDINGS: There is a right-sided PICC line that terminates at the atrial caval junction. A tracheostomy is present. IMPRESSION: Satisfactory placement of right-sided PICC line. Tracheostomy in place
--- NOTE | 2017-12-11 13:55 | CP.PCM.PN ---
Subjective - Date & Time of Evaluation Date of Evaluation: 12/11/17 Time of Evaluation: 13:52 - Subjective Subjective: Mr. Koch was seen and examined at the bedside in ICU. He has trach connected to a mechanical ventilator. He is currently receiving Propofol for sedation with GCS-4T. He remains with gag and corneal reflex. His pupils reactive but sluggish. He has episode of restlessness that he has a bilateral wrist restraints for patient safety. There was no untoward events overnight. Objective - Vital Signs/Intake and Output Vital Signs (last 24 hours): Temp Pulse Resp BP Pulse Ox 98.8 F 89 28 H 147/74 100 12/11/17 04:00 12/11/17 10:00 12/11/17 07:21 12/11/17 09:12 12/11/17 08:00 Intake and Output: 12/11/17 12/11/17 06:59 18:59 Intake Total 2450 Output Total 2500 Balance -50 - Medications Medications: Current Medications Acetaminophen (Tylenol 650 Mg Supp) 650 mg RC Q6H PRN PRN Reason: Fever >100.4 F Ascorbic Acid (Vitamin C 500 Mg Tab) 500 mg PO DAILY [facility] Last Admin: 12/11/17 09:18 Dose: 500 mg Bacitracin (Bacitracin) 1 ea TOP Q6 PRN PRN Reason: Swelling Last Admin: 11/28/17 09:34 Dose: 1 ea Cyproheptadine HCl (Periactin) 4 mg PO Q8H [facility] Last Admin: 12/11/17 00:00 Dose: 4 mg Docusate Sodium (Colace Liquid) 100 mg PO BID [facility] Last Admin: 12/11/17 09:20 Dose: 100 mg Folic Acid (Folic Acid) 1 mg PO DAILY [facility] Last Admin: 12/11/17 09:18 Dose: 1 mg Heparin Sodium (Porcine) (Heparin) 5,000 units SC Q8 [facility] PRN Reason: Protocol Last Admin: 12/11/17 05:03 Dose: 5,000 units Hydralazine HCl (Apresoline) 10 mg IVP Q6 PRN PRN Reason: give if SBP >160 Last Admin: 12/02/17 12:56 Dose: 10 mg Dexmedetomidine HCl (Precedex 400mcg/100ml) 400 mcg in 100 mls @ 3.629 mls/hr IV .Q24H PRN; Protocol; 0.2 MCG/KG/HR PRN Reason: Agitation Last Admin: 12/11/17 03:54 Dose: 1.5 mcg/kg/hr, 27.216 mls/hr Meropenem 500 mg/ Sodium (Chloride) 100 mls @ 100 mls/hr IVPB Q8 [facility] PRN Reason: Protocol Last Admin: 12/11/17 05:03 Dose: 100 mls/hr Vancomycin HCl (Vancomycin 1gm) 1 gm in 250 mls @ 166.667 mls/hr IVPB Q12H [facility] PRN Reason: Protocol Last Admin: 12/10/17 22:30 Dose: 166.667 mls/hr Propofol (Diprivan) 1,000 mg in 100 mls @ 2.671 mls/hr IV .Q24H PRN; Protocol; 5 MCG/KG/MIN PRN Reason: TITRATE PER MD ORDER Last Admin: 12/11/17 03:53 Dose: 25 mcg/kg/min, 13.356 mls/hr Sodium Chloride (Sodium Chloride 0.9%) 1,000 mls @ 100 mls/hr IV .Q10H [facility] Last Admin: 12/10/17 07:09 Dose: 100 mls/hr Insulin Human Lispro (Humalog Low) 0 units SC Q6H [facility] PRN Reason: Protocol Last Admin: 12/11/17 05:00 Dose: Not Given Levalbuterol HCl (Xopenex) 0.63 mg IH [id number] PRN PRN Reason: Shortness of Breath Last Admin: 12/11/17 13:31 Dose: 0.63 mg Levetiracetam (Keppra) 750 mg PO Q12 [facility] Last Admin: 12/11/17 09:17 Dose: 750 mg Lorazepam (Ativan) 4 mg IVP Q4 PRN; Protocol PRN Reason: Agitation Last Admin: 12/11/17 09:38 Dose: 4 mg Multivitamins/Minerals (Therapeutic-M Tab) 1 tab PO 0800 [facility] Last Admin: 12/11/17 09:18 Dose: 1 tab Pantoprazole Sodium (Protonix Inj) 40 mg IVP DAILY [facility] Last Admin: 12/11/17 09:23 Dose: 40 mg Polyethylene Glycol (Miralax) 17 gm PO BID [facility] Last Admin: 12/11/17 09:17 Dose: 17 gm Propranolol HCl (Inderal) 40 mg PO BID [facility] Last Admin: 12/11/17 09:12 Dose: 40 mg Quetiapine Fumarate (Seroquel) 25 mg PO BID [facility] PRN Reason: Protocol Thiamine HCl (Vitamin B1 Tab) 100 mg PO TID [facility] Last Admin: 12/11/17 09:17 Dose: 100 mg Tobramycin Sulfate (Tobramycin Inj) 0.08 gm IH [id number] [facility] Last Admin: 12/11/17 07:44 Dose: 0.08 gm Valproate Sodium (Depakene Oral Soln) 750 mg PO Q12 [facility] Last Admin: 12/11/17 09:11 Dose: 750 mg - Labs Labs: 12/11/17 05:50 12/11/17 05:50 PT 15.4 SECONDS (9.4-12.5) H 12/10/17 07:00 INR 1.33 (0.93-1.08) H 12/10/17 07:00 - Constitutional Appears: No Acute Distress - Head Exam Head Exam: NORMAL INSPECTION - Neurological Exam Neuro motor strength exam: Left Upper Extremity: 2/1, Right Upper Extremity: 2/1 , Left Lower Extremity: 2/1, Right Lower Extremity: 2/1 Additional comments: GCS- 4T Assessment and Plan (1) Seizure Assessment & Plan: Case discussed with Dr. Rosenberg, continue all current medical regimen including thiamine and seroquel. There is no new recommendation from neurology. Status: Acute
--- NOTE | 2017-12-11 15:04 | OP ---
PROCEDURE DATE: 12/11/2017 PREOPERATIVE DIAGNOSIS: Chronic ventilatory dependence. POSTOPERATIVE DIAGNOSIS: Chronic ventilatory dependence. PROCEDURE: Tracheostomy with isthmusectomy with inferior base flap. SURGEON: Johnnie Hicks DO. DIRECTOR OF BUSINESS APPLICATIONS: Dr. Plasencia. TYPE OF ANESTHESIA: General. ESTIMATED BLOOD LOSS: 10 mL. DESCRIPTION OF PROCEDURE: This is a 62-year-old white male with a history of chronic ventilatory dependence, who is consulted for tracheostomy for expected prolonged intubation. The patient was prepped and draped in routine fashion and had pre endotracheal tube intubation with subsequent general anesthetic induced. The neck incision was made approximately 2 cm superior to the sternal notch in a transverse dissection with #15 blade. Dissection was carried through the subcutaneous, the platysma with Bovie dissections. The strap muscles were divided in the midline and the thyroid isthmus was divided with Bovie dissection. An inferior base flap of the second tracheal ring was then created and a 3-0 silk suture was placed in through the tracheal flap and brought out through the external incision. Bleeding was again controlled with the use of electrocautery and a #6 cuffed Shiley tracheostomy tube was then inserted through the stoma confirming good tube placement. The phalanges of the tracheostomy was inserted into place using 2-0 silk sutures to the skin in a simple interrupted fashion followed by a soft trach collar and sterile trach dressing. The patient tolerated the procedure well and was taken from the operating room to recovery room in stable condition. Johnnie Hicks DO
--- NOTE | 2017-12-11 17:12 | PN ---
DATE: SUBJECTIVE: Patient is seen and examined at bedside. He appears to be comfortable; however, barely respond to touch stimuli. He just had a tracheotomy and was weaned off propofol. He continued to be on Precedex 1.5 mcg/kg/hour. He is on PRVC with FiO2 of 50%, PEEP of 5, respiratory rate 18 and tidal volume 400. PHYSICAL EXAMINATION: VITAL SIGNS: His blood pressure 131/71, MAP 96, respiratory rate 18, heart rate 67, oxygen saturation 98%. ENT: Head and neck atraumatic. LUNGS: Clear to auscultation bilaterally. Decreased breath sounds in the right base. HEART: Regular rate and rhythm. S1, S2 normal. ABDOMEN: Soft, nontender, nondistended. MUSCULOSKELETAL: No C/C/E. NEUROLOGIC: Patient is sedated. SKIN: Moist. PSYCHIATRIC: Patient is sedated. LABORATORY DATA AND IMAGING: WBC 6.4, hemoglobin 11.2, platelet count 398. Sodium 145, potassium 4.2, chloride 107, carbon dioxide 28, BUN 8, creatinine 0.7, glucose 98, AST 43, ALT 62, total bilirubin 0.5. Hepatitis A, B, C is negative. RJ negative. Chest x-ray, right lower lobe atelectasis versus infiltrate. MEDICATIONS: Tylenol p.r.n., ascorbic acid, bacitracin p.r.n., cyproheptadine, Precedex, Colace, folic acid, heparin, hydralazine, insulin, low protocol, Keppra, Ativan p.r.n., meropenem, Protonix, propranolol, Seroquel, normal saline 100 mL/hour, tobramycin inhaled, valproic acid 750 mg p.o. q.12, vancomycin. ASSESSMENT AND PLAN: This is a 62-year-old gentleman who initially presented with what appears to be alcohol withdrawal in the setting of his psychiatric disorder. Patient was intubated for airway protection and was attempted to be weaned off sedation and mechanical ventilation for more than a week. Later on decision to proceed with tracheotomy for additional comfort and to wean off sedation was made. Patient had a tracheotomy today. Propofol is off now. Patient is followed up by Neurology service as well as his one of EEG showed questionable seizure, but not status epilepticus. He is on Keppra and valproic acid at present time. No repetitive movement that could be construed as seizures are noticed. At some point, concern for possible serotonergic syndrome was raised and the patient was started on cyproheptadine and propranolol. It appears that his myoclonic movement somewhat improved and he became afebrile since then. Percutaneous endoscopic gastrostomy tube was also placed. Neuro: At present time, we are aggressively tapering down his sedation. We are using Ativan p.r.n. in a need to wean off sedation drips. He is still on Precedex 1.5 mcg/kg/hour and we will continue to wean it down. Patient is on Keppra as well as Depakote by Neurology service. No repetitive movements that could have been construed as seizures noted. Patient is moving all extremities. His previous two CAT scans of the head were negative for acute intracranial pathology. Patient is on cyproheptadine and propranolol for serotonergic syndrome. It has appeared to improve his myoclonic movements and helped to resolve fever. Pulmonary: We will continue with protective lung ventilation strategy consistent of 6 to 8 mL per predicted body weight and maintaining plateau pressure less than 30 to avoid ventilator-induced lung injury. We will continue with conservative fluid and oxygen management. Head of bed elevated more than 35 degrees. Oral hygiene, deep vein thrombosis and gastrointestinal prophylaxis. We will continue with daily sedation vacation and daily weaning trials. Up until now, all his weaning attempts were unsuccessful. Patient does have right lower lobe atelectasis versus infiltrate. He is on broad-spectrum antibiotics and inhaled tobramycin. He is afebrile and does not have leukocytosis. Thus, this infiltrate unlikely to represent pneumonia in the absence of supportive clinical symptoms. Cardiovascular: Patient is hemodynamically stable. In the process of weaning down his Precedex, if his heart rate and blood pressure start to rise, we will consider clonidine. GI: We will start enteral nutrition shortly. Patient was n.p.o. for tracheotomy. GI prophylaxis. Head of bed was elevated more than 35 degrees. Endocrine: We will maintain blood glucose within 140 to 180 range according to NICE-SUGAR trial. Renal: Patient makes adequate urine and his creatinine level is normal. We will continue to maintain mean arterial pressure more than 65, euvolemia, euglycemia for additional nephroprotective effect. We will try to avoid nephrotoxic medication, but not at the expense of treatment of underlying disease. ID: Patient is afebrile, does not have leukocytosis, some questionable right lower lobe haziness, may represent atelectasis. Patient is on broad-spectrum antibiotics, inhaled tobramycin. ccm time 40 min Mike Velez MD [facility]
[2017-12-11 17:32] LABS: ALPHA-2-MACROGLOBULIN 110 mg/dL (106-279); GGT 45 U/L (3-70)
--- NOTE | 2017-12-11 19:52 | CP.PCM.PN ---
Subjective - Date & Time of Evaluation Date of Evaluation: 12/11/17 Time of Evaluation: 18:00 - Subjective Subjective: Infectious Disease Follow Up: December 11, 2017 62 yo male with medical history that includes Bipolar disorder and alcohol abuse presented with EtOH intoxication and now in withdrawals. Originally in the psych floor for bipolar disease treatment and suicidal ideation on 11/21/2017. The patient required intubation. ID initially called for possible aspiration pneumonia. No fevers, leukocytosis at this time. Remains intubated. Still no fevers or leukocytosis. Remains sedated. Noted blistered skin on right hand that slightly improved. Persistent fevers up to 102.0 F earlier in course of hospitalization but afebrile the last few days.. Still no leukocytosis. Cultures from 11/30/2017 negative. New cultures sent 12/01-. Multiple blisters on the right hand. Fluid filler and dark in color. Would obtain fluid from blisters for culture. Would consider CT of chest/ abdomen/pelvis. Continue on meropenem for antibiotic coverage at this point. Also on inhaled tobramycin and IV Zyvox. No new issues. Difficult extubation. Patient severely agitated when taken off sedation. Tremors present and more pronounced when off sedation. Currently afebrile but still with diaphoresis and tremors. Does not follow commands. Mentally no improvement. Chest X-ray still with patchy infiltrate in right lung and atelectasis. Objective - Vital Signs/Intake and Output Vital Signs (last 24 hours): Temp Pulse Resp BP Pulse Ox 98.8 F 89 28 H 107/60 99 12/11/17 04:00 12/11/17 18:19 12/11/17 07:21 12/11/17 18:04 12/11/17 18:00 Intake and Output: 12/11/17 12/12/17 18:59 06:59 Intake Total 950 Output Total 600 Balance 350 - Medications Medications: Current Medications Acetaminophen (Tylenol 650 Mg Supp) 650 mg RC Q6H PRN PRN Reason: Fever >100.4 F Ascorbic Acid (Vitamin C 500 Mg Tab) 500 mg PO DAILY [facility] Last Admin: 12/11/17 09:18 Dose: 500 mg Bacitracin (Bacitracin) 1 ea TOP Q6 PRN PRN Reason: Swelling Last Admin: 11/28/17 09:34 Dose: 1 ea Cyproheptadine HCl (Periactin) 4 mg PO Q8H [facility] Last Admin: 12/11/17 18:05 Dose: 4 mg Docusate Sodium (Colace Liquid) 100 mg PO BID [facility] Last Admin: 12/11/17 18:07 Dose: 100 mg Folic Acid (Folic Acid) 1 mg PO DAILY [facility] Last Admin: 12/11/17 09:18 Dose: 1 mg Heparin Sodium (Porcine) (Heparin) 5,000 units SC Q8 [facility] PRN Reason: Protocol Last Admin: 12/11/17 14:19 Dose: 5,000 units Hydralazine HCl (Apresoline) 10 mg IVP Q6 PRN PRN Reason: give if SBP >160 Last Admin: 12/02/17 12:56 Dose: 10 mg Dexmedetomidine HCl (Precedex 400mcg/100ml) 400 mcg in 100 mls @ 3.629 mls/hr IV .Q24H PRN; Protocol; 0.2 MCG/KG/HR PRN Reason: Agitation Last Admin: 12/11/17 18:07 Dose: 1 mcg/kg/hr, 18.144 mls/hr Meropenem 500 mg/ Sodium (Chloride) 100 mls @ 100 mls/hr IVPB Q8 [facility] PRN Reason: Protocol Last Admin: 12/11/17 13:58 Dose: 100 mls/hr Vancomycin HCl (Vancomycin 1gm) 1 gm in 250 mls @ 166.667 mls/hr IVPB Q12H [facility] PRN Reason: Protocol Last Admin: 12/11/17 13:00 Dose: 166.667 mls/hr Propofol (Diprivan) 1,000 mg in 100 mls @ 2.671 mls/hr IV .Q24H PRN; Protocol; 5 MCG/KG/MIN PRN Reason: TITRATE PER MD ORDER Last Admin: 12/11/17 03:53 Dose: 25 mcg/kg/min, 13.356 mls/hr Sodium Chloride (Sodium Chloride 0.9%) 1,000 mls @ 100 mls/hr IV .Q10H [facility] Last Admin: 12/10/17 07:09 Dose: 100 mls/hr Insulin Human Lispro (Humalog Low) 0 units SC Q6H [facility] PRN Reason: Protocol Last Admin: 12/11/17 16:00 Dose: Not Given Levalbuterol HCl (Xopenex) 0.63 mg IH [id number] PRN PRN Reason: Shortness of Breath Last Admin: 12/11/17 13:31 Dose: 0.63 mg Levetiracetam (Keppra) 750 mg PO Q12 [facility] Last Admin: 12/11/17 09:17 Dose: 750 mg Lorazepam (Ativan) 4 mg IVP Q4 PRN; Protocol PRN Reason: Agitation Last Admin: 12/11/17 14:20 Dose: 4 mg Multivitamins/Minerals (Therapeutic-M Tab) 1 tab PO 0800 [facility] Last Admin: 12/11/17 09:18 Dose: 1 tab Pantoprazole Sodium (Protonix Inj) 40 mg IVP DAILY [facility] Last Admin: 12/11/17 09:23 Dose: 40 mg Polyethylene Glycol (Miralax) 17 gm PO BID [facility] Last Admin: 12/11/17 18:00 Dose: 17 gm Propranolol HCl (Inderal) 40 mg PO BID [facility] Last Admin: 12/11/17 18:04 Dose: 40 mg Quetiapine Fumarate (Seroquel) 25 mg PO BID [facility] PRN Reason: Protocol Thiamine HCl (Vitamin B1 Tab) 100 mg PO TID [facility] Last Admin: 12/11/17 09:17 Dose: 100 mg Tobramycin Sulfate (Tobramycin Inj) 0.08 gm IH [id number] [facility] Last Admin: 12/11/17 07:44 Dose: 0.08 gm Valproate Sodium (Depakene Oral Soln) 750 mg PO Q12 [facility] Last Admin: 12/11/17 09:11 Dose: 750 mg - Labs Labs: 12/11/17 05:50 12/11/17 05:50 PT 15.4 SECONDS (9.4-12.5) H 12/10/17 07:00 INR 1.33 (0.93-1.08) H 12/10/17 07:00 - Constitutional Appears: Chronically Ill - Head Exam Additional comments: intubated and ventilated. - Eye Exam Eye Exam: EOMI, PERRL Pupil Exam: NORMAL ACCOMODATION, PERRL - ENT Exam ENT Exam: Mucous Membranes Moist, Normal External Ear Exam, TM's Normal Bilaterally - Neck Exam Neck Exam: Full ROM, Normal Inspection - Respiratory Exam Respiratory Exam: Clear to Ausculation Bilateral, NORMAL BREATHING PATTERN. absent: Rales, Rhonchi, Wheezes - Cardiovascular Exam Cardiovascular Exam: REGULAR RHYTHM, RRR, +S1, +S2 - GI/Abdominal Exam GI & Abdominal Exam: Soft, Normal Bowel Sounds. absent: Distended, Tenderness - Extremities Exam Extremities Exam: Joint Swelling, Pedal Edema - Neurological Exam Additional comments: poorly responsive and sedated. - Skin Skin Exam: Intact Additional comments: except Multiple blisters on the right hand. Fluid filler and dark in color. Most blisters are now burst. Assessment and Plan - Assessment and Plan (Free Text) Assessment: 62 yo male with EtOH abuse. Developed EtOH withdrawal and now required intubation and ventilation. The patient was being evaluated by ID for potential aspiration. The patient is currently on Cefepime and Vancomycin. If aspiration is a significant concern, would either add Flagyl IV or switch Cefepime to Meropenem or Zosyn. Febrile several days ago up to 102 F. Afebrile the last few days. No leukocytosis. No findings on Chest X-ray. Supportive care. Procalcitonin is 0.14 which is low. Noted procalcitonin repeated multiple times and all showing low values. Suggests strongly against bacterial causes but does not rule out viral. More likely secondary to the EtOH withdrawal and Delirium Tremens. Case discussed with team. Off antibiotics now. Will Monitor. Difficult extubation/wean from ventilation. Agitation when off sedation. Afebrile today but one temperature value showed hypothermia. Repeat cultures with next fever. Check urinalysis and urine culture. 11/30/2017 cultures negative so far. 12/01/2017 cultures with no specific growth. Afebrile the last few dates. Sputum cultures with yeast. Chest X-ray suggesting HCAP. Antibiotics continues on Zyvox and Meropenem. For now the patient has remained afebrile. Supportive care. No improvement mentally. Extremely agitated when sedation stopped. Thank you for allowing me to participate in the care of the patient, we will follow with you.
[2017-12-12] MEDS: Insulin Lispro (humaLOG) LOW Coverage SC SCH ×4 (04:15→20:39)
[2017-12-12] MEDS: Meropenem 500 MG in Sodium Chloride 0.9% 100 ML IVPB SCH ×3 (06:31→21:18)
[2017-12-12 06:32] LABS: BASO # 0.02 K/mm3 (0.0-2.0); BASO % 0.3 % (0.0-3.0); EOS # 0.1 (0.0-0.7); EOS % 1.5 % (1.5-5.0); GRAN # 5.79 (1.4-6.5); GRAN % 76.5 % (50.0-68.0); HEMOGLOBIN 11.1 g/dL (14.0-18.0); LYMPH % 12.8 % (22.0-35.0); MEAN CELL VOLUME 90.6 fl (80.0-105.0); MEAN CORPUSCULAR HEMOGLOBIN 29.8 pg (25.0-35.0); MEAN CORPUSCULAR HGB CONC 32.8 g/dl (31.0-37.0); MEAN PLATELET VOLUME 9.9 fl (7.0-11.0); MONO # 0.7 (0.1-0.6); MONO % 8.9 % (1.0-6.0); RBC 3.73 10^6/uL (3.5-6.1); RED CELL DISTRIBUTION WIDTH 13.7 % (11.5-14.5); WHITE BLOOD COUNT 7.6 10^3/ul (4.5-11.0)
[2017-12-12 06:57] LABS: ALB/GLOB RATIO 1.1 (1.1-1.8); ALBUMIN 2.9 g/dL (3.0-4.8); ALT/SGPT 67 U/L (7-56); AST/SGOT 47 U/L (17-59); BLOOD UREA NITROGEN 8 mg/dL (7-21); CALCIUM 8.7 mg/dL (8.4-10.5); GFR AFRICAN-AMERICAN > 60; GFR NON-AFRICAN AMERICAN > 60; MAGNESIUM 2.3 mg/dL (1.7-2.2)
[2017-12-12] MEDS: Levalbuterol 0.63 MG/3 ML Inhal Soln UD IH PRN (07:13)
[2017-12-12] MEDS: Tobramycin 1.2 gm Inj IH SCH ×2 (07:19→21:20)
[2017-12-12] MEDS: Multivitamin With Minerals Tab PO SCH (08:07)
--- NOTE | 2017-12-12 08:09 | CP.PCM.PN ---
Subjective - Date & Time of Evaluation Date of Evaluation: 12/12/17 Time of Evaluation: 07:00 - Subjective Subjective: Patient seen and examined this AM. No adverse events overnight. Patient's tracheostomy is functioning well with minimal serosanguinous drainage around the tracheostomy Objective - Vital Signs/Intake and Output Vital Signs (last 24 hours): Temp Pulse Resp BP Pulse Ox 98.1 F 95 H 22 156/99 H 99 12/12/17 04:00 12/12/17 04:00 12/12/17 04:00 12/12/17 04:00 12/12/17 04:00 Intake and Output: 12/12/17 12/12/17 06:59 18:59 Intake Total 200 Balance 200 - Medications Medications: Current Medications Acetaminophen (Tylenol 650 Mg Supp) 650 mg RC Q6H PRN PRN Reason: Fever >100.4 F Ascorbic Acid (Vitamin C 500 Mg Tab) 500 mg PO DAILY [facility] Last Admin: 12/11/17 09:18 Dose: 500 mg Bacitracin (Bacitracin) 1 ea TOP Q6 PRN PRN Reason: Swelling Last Admin: 11/28/17 09:34 Dose: 1 ea Chlordiazepoxide (Librium) 25 mg PO Q8 [facility] PRN Reason: Protocol Clonidine HCl (Catapres) 0.2 mg PO BID [facility] Cyproheptadine HCl (Periactin) 4 mg PO Q8H [facility] Last Admin: 12/12/17 03:59 Dose: 4 mg Docusate Sodium (Colace Liquid) 100 mg PO BID [facility] Last Admin: 12/11/17 18:07 Dose: 100 mg Folic Acid (Folic Acid) 1 mg PO DAILY [facility] Last Admin: 12/11/17 09:18 Dose: 1 mg Heparin Sodium (Porcine) (Heparin) 5,000 units SC Q8 [facility] PRN Reason: Protocol Last Admin: 12/12/17 06:15 Dose: Not Given Hydralazine HCl (Apresoline) 10 mg IVP Q6 PRN PRN Reason: give if SBP >160 Last Admin: 12/02/17 12:56 Dose: 10 mg Dexmedetomidine HCl (Precedex 400mcg/100ml) 400 mcg in 100 mls @ 3.629 mls/hr IV .Q24H PRN; Protocol; 0.2 MCG/KG/HR PRN Reason: Agitation Last Titration: 12/12/17 06:00 Dose: Infused Meropenem 500 mg/ Sodium (Chloride) 100 mls @ 100 mls/hr IVPB Q8 [facility] PRN Reason: Protocol Last Admin: 12/12/17 06:31 Dose: 100 mls/hr Vancomycin HCl (Vancomycin 1gm) 1 gm in 250 mls @ 166.667 mls/hr IVPB Q12H [facility] PRN Reason: Protocol Last Admin: 12/11/17 22:51 Dose: 166.667 mls/hr Propofol (Diprivan) 1,000 mg in 100 mls @ 2.671 mls/hr IV .Q24H PRN; Protocol; 5 MCG/KG/MIN PRN Reason: TITRATE PER MD ORDER Last Titration: 12/11/17 19:00 Dose: Infused Sodium Chloride (Sodium Chloride 0.9%) 1,000 mls @ 100 mls/hr IV .Q10H [facility] Last Admin: 12/10/17 07:09 Dose: 100 mls/hr Insulin Human Lispro (Humalog Low) 0 units SC Q6H [facility] PRN Reason: Protocol Last Admin: 12/12/17 04:15 Dose: Not Given Levalbuterol HCl (Xopenex) 0.63 mg IH [id number] PRN PRN Reason: Shortness of Breath Last Admin: 12/12/17 07:13 Dose: 0.63 mg Levetiracetam (Keppra) 750 mg PO Q12 [facility] Last Admin: 12/11/17 22:50 Dose: 750 mg Lorazepam (Ativan) 4 mg IVP Q4H [facility] PRN Reason: Protocol Last Admin: 12/12/17 03:59 Dose: 4 mg Lorazepam (Ativan) 4 mg IVP Q2 PRN; Protocol PRN Reason: Agitation Last Admin: 12/12/17 06:15 Dose: 4 mg Multivitamins/Minerals (Therapeutic-M Tab) 1 tab PO 0800 [facility] Last Admin: 12/11/17 09:18 Dose: 1 tab Pantoprazole Sodium (Protonix Inj) 40 mg IVP DAILY [facility] Last Admin: 12/11/17 09:23 Dose: 40 mg Polyethylene Glycol (Miralax) 17 gm PO BID [facility] Last Admin: 12/11/17 18:00 Dose: 17 gm Propranolol HCl (Inderal) 40 mg PO BID [facility] Last Admin: 12/11/17 18:04 Dose: 40 mg Quetiapine Fumarate (Seroquel) 25 mg PO BID [facility] PRN Reason: Protocol Thiamine HCl (Vitamin B1 Tab) 100 mg PO TID [facility] Last Admin: 12/11/17 09:17 Dose: 100 mg Tobramycin Sulfate (Tobramycin Inj) 0.08 gm IH [id number] [facility] Last Admin: 12/12/17 07:19 Dose: 0.08 gm Valproate Sodium (Depakene Oral Soln) 750 mg PO Q12 [facility] Last Admin: 12/11/17 22:50 Dose: 750 mg - Labs Labs: 12/12/17 06:15 12/12/17 06:15 PT 15.4 SECONDS (9.4-12.5) H 12/10/17 07:00 INR 1.33 (0.93-1.08) H 12/10/17 07:00 - Constitutional Appears: No Acute Distress - Head Exam Head Exam: ATRAUMATIC, NORMOCEPHALIC - Eye Exam Eye Exam: Normal appearance. absent: Conjunctival injection, Scleral icterus - ENT Exam ENT Exam: Mucous Membranes Moist, Normal Oropharynx Additional comments: tracheostomy tube in place with minimal amount of serosanguinous drainage on the dressing. Sutures in place - Respiratory Exam Respiratory Exam: absent: Accessory Muscle Use, Respiratory Distress Additional comments: tachypneic - Cardiovascular Exam Cardiovascular Exam: Tachycardia, REGULAR RHYTHM - GI/Abdominal Exam GI & Abdominal Exam: absent: Distended - Neurological Exam Neurological Exam: Altered Additional comments: GCS 10T - Psychiatric Exam Psychiatric exam: Flat Affect - Skin Skin Exam: Dry, Normal Color, Warm Assessment and Plan - Assessment and Plan (Free Text) Assessment: 62M POD#1 s/p tracheostomy tube placement Plan: -change dressings PRN -aggressive tracheostomy tube suctioning -Do not move or remove sutures steristripped to the chest -Tracheostomy tube should be exchanged in 10 days -Continue care per primary and ICU Discussed with Dr. Fabiola Echeverria, PGY2
--- NOTE | 2017-12-12 08:13 | CP.CCUPN ---
<Singh Traore - Last Filed: 12/12/17 11:52> CCU Subjective - Physician Review Subjective (Free Text): Singh Traore PGY1 ICU Note for Dr. Velez Patient was seen and examined in ICU. Overnight, the patient has been weaned off sedation and is currently being managed on benzodiazepenes. The patient is more alert this morning and had bowel movements. The patient is not agitated and in no acute distress. No acute overnight events. Patient is s/p tracheostomy and PEG tube placement. ROS was limited due to persistent AMS. Patient failed pressure support trial this morning and required to be placed back on PRVC. CCU Objective - Vital Signs / Intake & Output Vital Signs (Last 4 hours): Vital Signs Pulse BP 12/12/17 08:07 104 H 159/101 H Intake and Output (Last 8hrs): Intake & Output 12/11/17 12/12/17 12/12/17 22:59 06:59 14:59 Intake Total 860 90 Output Total 600 Balance 260 90 Weight 184 lb 9.6 oz Intake: IV 860 90 IVPB 650 Output: Urine 600 Urethral (Mackenzie) 600 - Physical Exam Physical Exam Limitations: Positive for: Altered Mental Status Head: Positive for: Atraumatic, Normocephalic Pupils: Positive for: PERRL, Sluggish Conjunctiva: Positive for: Normal. Negative for: Injected Ears: Positive for: Normal Mouth: Positive for: Dry, Normal Teeth Pharnyx: Positive for: Normal Nose (External): Positive for: Atraumatic Nose (Internal): Positive for: Normal Inspection Neck: Positive for: Other (s/p tracheostomy). Negative for: JVD Respiratory/Chest: Positive for: Clear to Auscultation, Good Air Exchange, Other (intubated on vent). Negative for: Respiratory Distress, Accessory Muscle Use, Wheezes, Rales, Retracting, Rhonchi, Tachypneic Cardiovascular: Positive for: Regular Rate and Rhythm, Normal S1, S2. Negative for: Murmurs Abdomen: Positive for: Normal Bowel Sounds, Feeding Tubes, Ostomy Tubes (PEG tube ). Negative for: Tenderness, Distention, Peritoneal Signs, Rebound, Guarding Genitourinary Male: Positive for: Other (mackenzie catheter in place ) Back: Positive for: Normal Inspection. Negative for: Midline Tenderness Upper Extremity: Positive for: Normal Inspection, NORMAL PULSES, Other (resting right arm tremor, rigidity noted). Negative for: Cyanosis, Edema Lower Extremity: Positive for: Normal Inspection, NORMAL PULSES. Negative for: Edema Neurological: Positive for: Other (sedated ). Negative for: GCS=15 Skin: Positive for: Warm, Normal Color Psychiatric: Positive for: Other (sedated). Negative for: Alert, Oriented x 3, Normal Insight, Normal Concentration - Medications Active Medications: Active Medications Generic Name Dose Route Start Last Admin Trade Name Freq PRN Reason Stop Dose Admin Acetaminophen 650 mg 12/05/17 12:27 Tylenol 650 Mg Supp RC Q6H PRN Fever >100.4 F Ascorbic Acid 500 mg 11/28/17 11:30 12/11/17 09:18 Vitamin C 500 Mg Tab PO 500 mg DAILY SHIV Administration Bacitracin 1 ea 11/28/17 08:51 11/28/17 09:34 Bacitracin TOP 1 ea Q6 PRN Administration Swelling Chlordiazepoxide 25 mg 12/12/17 07:15 12/12/17 08:07 Librium PO 25 mg Q8 SHIV Administration Protocol Clonidine HCl 0.2 mg 12/12/17 10:00 Catapres PO BID SHIV Cyproheptadine HCl 4 mg 12/05/17 11:15 12/12/17 03:59 Periactin PO 4 mg Q8H SHIV Administration Docusate Sodium 100 mg 12/05/17 18:00 12/11/17 18:07 Colace Liquid PO 100 mg BID SHIV Administration Folic Acid 1 mg 12/01/17 10:15 12/11/17 09:18 Folic Acid PO 1 mg DAILY SHIV Administration Heparin Sodium (Porcine) 5,000 units 12/03/17 08:15 12/12/17 06:15 Heparin SC Not Given Q8 SHIV Protocol Hydralazine HCl 10 mg 11/29/17 14:56 12/02/17 12:56 Apresoline IVP 10 mg Q6 PRN Administration give if SBP >160 Dexmedetomidine HCl 400 mcg in 100 mls @ 3.629 mls/hr 11/26/17 09:21 06:00 Precedex 400mcg/100ml IV Infused .Q24H PRN Titration Agitation Protocol 0.2 MCG/KG/HR Meropenem 500 mg/ Sodium 100 mls @ 100 mls/hr 12/04/17 22:00 12/12/17 06:31 Chloride IVPB 100 mls/hr Q8 SHIV Administration Protocol Vancomycin HCl 1 gm in 250 mls @ 166.667 mls/hr 12/08/17 10:26 12/11/17 22:51 Vancomycin 1gm IVPB 166.667 mls/hr Q12H SHIV Administration Protocol Propofol 1,000 mg in 100 mls @ 2.671 mls/hr 12/09/17 11:34 12/11/17 19:00 Diprivan IV Infused .Q24H PRN Titration TITRATE PER MD ORDER Protocol 5 MCG/KG/MIN Sodium Chloride 1,000 mls @ 100 mls/hr 12/09/17 12:45 12/10/17 07:09 Sodium Chloride 0.9% IV 100 mls/hr .Q10H SHIV Administration Insulin Human Lispro 0 units 11/26/17 09:00 12/12/17 04:15 Humalog Low SC Not Given Q6H SHIV Protocol Levalbuterol HCl 0.63 mg 12/02/17 09:55 12/12/17 07:13 Xopenex IH 0.63 mg [id number] PRN Administration Shortness of Breath Levetiracetam 750 mg 12/04/17 22:00 12/11/17 22:50 Keppra PO 750 mg Q12 SHIV Administration Lorazepam 4 mg 12/12/17 04:00 12/12/17 08:06 Ativan IVP 4 mg Q4H SHIV Administration Protocol Lorazepam 4 mg 12/12/17 06:00 12/12/17 06:15 Ativan IVP 4 mg Q2 PRN Administration Agitation Protocol Multivitamins/Minerals 1 tab 11/29/17 08:00 12/12/17 08:07 Therapeutic-M Tab PO 1 tab 0800 SHIV Administration Pantoprazole Sodium 40 mg 11/22/17 10:00 12/11/17 09:23 Protonix Inj IVP 40 mg DAILY SHIV Administration Polyethylene Glycol 17 gm 12/05/17 18:00 12/11/17 18:00 Miralax PO 17 gm BID SHIV Administration Propranolol HCl 40 mg 12/05/17 11:00 12/11/17 18:04 Inderal PO 40 mg BID SHIV Administration Quetiapine Fumarate 25 mg 12/09/17 11:45 Seroquel PO BID [facility] Protocol Thiamine HCl 100 mg 11/28/17 14:00 12/11/17 09:17 Vitamin B1 Tab PO 100 mg TID SHIV Administration Tobramycin Sulfate 0.08 gm 12/05/17 11:00 12/12/17 07:19 Tobramycin Inj IH 0.08 gm [id number] SHIV Administration Valproate Sodium 750 mg 12/09/17 22:00 12/11/17 22:50 Depakene Oral Soln PO 750 mg Q12 SHIV Administration - Patient Studies Lab Studies: Lab Studies 12/12/17 12/12/17 12/12/17 Range/Units 06:15 06:15 04:19 WBC 7.6 (4.5-11.0) 10^3/ul RBC 3.73 (3.5-6.1) 10^6/uL Hgb 11.1 L (14.0-18.0) g/dL Hct 33.8 L (42.0-52.0) % MCV 90.6 (80.0-105.0) fl MCH 29.8 (25.0-35.0) pg MCHC 32.8 (31.0-37.0) g/dl RDW 13.7 (11.5-14.5) % Plt Count 440 (120.0-450.0) 10^3/uL MPV 9.9 (7.0-11.0) fl Gran % 76.5 H (50.0-68.0) % Lymph % (Auto) 12.8 L (22.0-35.0) % [place] % (Auto) 8.9 H (1.0-6.0) % Eos % (Auto) 1.5 (1.5-5.0) % Baso % (Auto) 0.3 (0.0-3.0) % Gran # 5.79 (1.4-6.5) Lymph # (Auto) 1.0 L (1.2-3.4) [place] # (Auto) 0.7 H (0.1-0.6) Eos # (Auto) 0.1 (0.0-0.7) Baso # (Auto) 0.02 (0.0-2.0) K/mm3 Haptoglobin (43-212) mg/dL Sodium 144 (132-148) mmol/L Potassium 4.0 (3.6-5.0) mmol/L Chloride 106 (98-107) mmol/L Carbon Dioxide 30 (21-33) mmol/L Anion Gap 13 (10-20) BUN 8 (7-21) mg/dL Creatinine 0.7 L (0.8-1.5) mg/dl Est GFR ( Amer) > 60 Est GFR (Non-Af Amer) > 60 POC Glucose (mg/dL) 114 H (65-110) mg/dL Random Glucose 117 H (70-110) mg/dL Calcium 8.7 (8.4-10.5) mg/dL Phosphorus 3.3 (2.5-4.5) mg/dL Magnesium 2.3 H (1.7-2.2) mg/dL Total Bilirubin 0.6 (0.2-1.2) mg/dL AST 47 (17-59) U/L ALT 67 H (9-46) U/L Alkaline Phosphatase 71 (38-126) U/L Liver Fibrosis Score Liver Fibrosis Interp Liver Fibrosis Comment Liver Fibrosis Stage Necroinflammator Score Necroinflam Score Cmmt Necroinflammator Grade Total Protein 5.5 L (5.8-8.3) g/dL Albumin 2.9 L (3.0-4.8) g/dL Globulin 2.6 gm/dL Albumin/Globulin Ratio 1.1 (1.1-1.8) Pdbmn-3-Ukwscmzljkefu (106-279) mg/dL Apolipoprotein A-1 (94-176) mg/dL Ref Lab Specimen ID 12/11/17 12/11/17 12/07/17 Range/Units 20:58 17:50 06:50 WBC (4.5-11.0) 10^3/ul RBC (3.5-6.1) 10^6/uL Hgb (14.0-18.0) g/dL Hct (42.0-52.0) % MCV (80.0-105.0) fl MCH (25.0-35.0) pg MCHC (31.0-37.0) g/dl RDW (11.5-14.5) % Plt Count (120.0-450.0) 10^3/uL MPV (7.0-11.0) fl Gran % (50.0-68.0) % Lymph % (Auto) (22.0-35.0) % [place] % (Auto) (1.0-6.0) % Eos % (Auto) (1.5-5.0) % Baso % (Auto) (0.0-3.0) % Gran # (1.4-6.5) Lymph # (Auto) (1.2-3.4) [place] # (Auto) (0.1-0.6) Eos # (Auto) (0.0-0.7) Baso # (Auto) (0.0-2.0) K/mm3 Haptoglobin 203 (43-212) mg/dL Sodium (132-148) mmol/L Potassium (3.6-5.0) mmol/L Chloride (98-107) mmol/L Carbon Dioxide (21-33) mmol/L Anion Gap (10-20) BUN (7-21) mg/dL Creatinine (0.8-1.5) mg/dl Est GFR ( Amer) Est GFR (Non-Af Amer) POC Glucose (mg/dL) 95 88 (65-110) mg/dL Random Glucose (70-110) mg/dL Calcium (8.4-10.5) mg/dL Phosphorus (2.5-4.5) mg/dL Magnesium (1.7-2.2) mg/dL Total Bilirubin 0.3 (0.2-1.2) mg/dL AST (17-59) U/L ALT 48 H (9-46) U/L Alkaline Phosphatase (38-126) U/L Liver Fibrosis Score 0.17 Liver Fibrosis Interp See note Liver Fibrosis Comment See note Liver Fibrosis Stage F0 Necroinflammator Score 0.24 Necroinflam Score Cmmt See note Necroinflammator Grade A0-a1 Total Protein (5.8-8.3) g/dL Albumin (3.0-4.8) g/dL Globulin gm/dL Albumin/Globulin Ratio (1.1-1.8) Aowqc-7-Hbeupryfzyetx 110 (106-279) mg/dL Apolipoprotein A-1 63 L (94-176) mg/dL Ref Lab Specimen ID [id number] Laboratory Results - last 24 hr 12/07/17 12/11/17 12/11/17 06:50 17:50 20:58 WBC RBC Hgb Hct MCV MCH MCHC RDW Plt Count MPV Gran % Lymph % (Auto) [place] % (Auto) Eos % (Auto) Baso % (Auto) Gran # Lymph # (Auto) [place] # (Auto) Eos # (Auto) Baso # (Auto) Haptoglobin 203 Sodium Potassium Chloride Carbon Dioxide Anion Gap BUN Creatinine Est GFR ( Amer) Est GFR (Non-Af Amer) POC Glucose (mg/dL) 88 95 Random Glucose Calcium Phosphorus Magnesium Total Bilirubin 0.3 AST ALT 48 H Alkaline Phosphatase Liver Fibrosis Score 0.17 Liver Fibrosis Interp See note Liver Fibrosis Comment See note Liver Fibrosis Stage F0 Necroinflammator Score 0.24 Necroinflam Score Cmmt See note Necroinflammator Grade A0-a1 Total Protein Albumin Globulin Albumin/Globulin Ratio Tnwle-8-Xrjvkodafqvsd 110 Apolipoprotein A-1 63 L Ref Lab Specimen ID [id number] 12/12/17 12/12/17 12/12/17 04:19 06:15 06:15 WBC 7.6 RBC 3.73 Hgb 11.1 L Hct 33.8 L MCV 90.6 MCH 29.8 MCHC 32.8 RDW 13.7 Plt Count 440 MPV 9.9 Gran % 76.5 H Lymph % (Auto) 12.8 L [place] % (Auto) 8.9 H Eos % (Auto) 1.5 Baso % (Auto) 0.3 Gran # 5.79 Lymph # (Auto) 1.0 L [place] # (Auto) 0.7 H Eos # (Auto) 0.1 Baso # (Auto) 0.02 Haptoglobin Sodium 144 Potassium 4.0 Chloride 106 Carbon Dioxide 30 Anion Gap 13 BUN 8 Creatinine 0.7 L Est GFR ( Amer) > 60 Est GFR (Non-Af Amer) > 60 POC Glucose (mg/dL) 114 H Random Glucose 117 H Calcium 8.7 Phosphorus 3.3 Magnesium 2.3 H Total Bilirubin 0.6 AST 47 ALT 67 H Alkaline Phosphatase 71 Liver Fibrosis Score Liver Fibrosis Interp Liver Fibrosis Comment Liver Fibrosis Stage Necroinflammator Score Necroinflam Score Cmmt Necroinflammator Grade Total Protein 5.5 L Albumin 2.9 L Globulin 2.6 Albumin/Globulin Ratio 1.1 Cngqq-9-Lgldzaqkvwcsi Apolipoprotein A-1 Ref Lab Specimen ID Fingerstick Blood Sugar Results: 114 Review of Systems - Review of Systems Systems not reviewed;Unavailable: Altered Mental Status Critical Care Progress Note - Ventilator Checklist Head of Bed 30 Degrees: Yes Daily Sedation Vacation: Yes Daily Assessment of Readiness to Wean: Yes Daily Spontaneous Breathing Trial: Yes PUD Prophalyxis: Yes DVT Prophylaxis: Yes Oral Care with Chlorhexidine Gluconate {CHG}: Yes - Vent Settings MODE:: PRVC - Extremities/Vascular Does the Patient have a Central Venous Catheter?: Yes Does the Patient need a Central Venous Catheter?: Yes (has PICC line) Does the Patient have a Mackenzie Catheter?: Yes Does the Patient need a Mackenzie Catheter?: Yes - Restraints Justification for Restraints: High risk for self extubation, High risk for removing IV access - Prophylaxis GI Prophylaxis GI: PPI - Prophylaxis DVT Prophylaxis DVT: Heparin SQ, SCDs Assessment/Plan - Assessment and Plan (Free Text) Assessment: 62yo M with PMHx of Bipolar disorder and ETOH abuse in ICU for DTs 2/2 ETOH withdrawal. Patient initially admitted to psych for suicidal ideation then transferred to in-patient due to severe ETOH withdrawal with DTs requiring high- dose sedation and intubation. Rhabdomyolysis was also noted, but has resolved. CXR showing worsening of RLL consolidation, and patient has been on antibiotics to cover respiratory infections including sinusitis seen on imaging. s/p Trach and PEG tube. Patient failed pressure support trial this morning and required to be placed back on PRVC. Patient has been weaned off sedation. Plan: Neuro: - off sedation, as of this morning - Librium SHIV and Ativan SHIV and PRN - Clonidine added - will cont on Propranolol and Cyprohepatadine for tremor, monitor for changes - continue thiamine, folic acid and multivitamin supplements - Neuro consulted- recs appreciated - EEG's have been unremarkable so far; repeat EEG yesterday pending read - MRI brain showed persistent b/l maxially, ethomoid and sphoenoid sinusitis w/ mastoid effusions - Keppra 750mg BID and Depakote 750mg BID for seizure precautions; neuro managing changes - Continue CIWA protocol, seizure precaution, aspiration precaution - Head CT negative for acute pathology Cardio: - HD stable - Maintain MAP> 65mmHg - Hydralazine PRN for BP control - Propranolol started scheduled - continue IVF Pulm: - s/p tracheostomy by ENT team - Patient failed pressure support trial this morning and required to be placed back on PRVC - Protective lung ventilation strategy, HOB elevated, daily oral care, and aspiration precautions, DVT and GI ppx, as well as daily attempts to wean off vent and sedation - CXR shows atelectasis - Xopenex PRN - will cont Meropenem and Vancomycin as well as tobramycin inhaled for sinusitis and possible RLL pneumonia - Maintain spO2>90% GI: - cont PEG tube feeds - Thiamine, Folic acid, and MV for ETOH withdrawal and DTs - PPI for GI ppx - s/p PEG by GI team Heme: - Hgb stable - platelets stable - monitor H/H daily Nephro: - Will continue to monitor electrolytes and replace as needed - Continue to monitor I&O ID: - Fevers likely 2/2 withdrawals; blood cultures and UA negative so far; will cont Meropenem, Vancomycin and Tobramycin inhaled for sinusitis and HCAP - Bacitracin, Zinc, MV and vit C for skin - ID consulted- recs appreciated - PICC line placed Psych: - Hx of Bipolar - Psych consulted- recs appreciated - will evaluate once off of sedation - Consent for trach and PICC line obtained by Dr. Velez on 12/05 with family members over phone; consent for PEG obtained by GI team GI ppx: Protonix DVT ppx: Heparin SC and SCDs Diet: Tube feeds per PEG tube Dispo: Plan for LTAC per SW. Patient is off sedation but failed pressure support trial on trach this morning; will attempt to wean daily. Patient was seen, examined, and discussed with attending, Dr. Agustin Traore PGY1 Pager [phone] <Mike Velez - Last Filed: 12/12/17 16:24> CCU Objective - Vital Signs / Intake & Output Intake and Output (Last 8hrs): Intake & Output 12/12/17 12/12/17 12/12/17 06:59 14:59 22:59 Intake Total 1590 Output Total 1400 Balance 190 Weight 184 lb 9.6 oz 184 lb 9.6 oz Intake: IV 640 IVPB 450 precedex 100 Oral 0 Tube Feeding 600 TPN/PPN 0 Blood Product 0 Lipid 0 Albumin 0 Other 350 Output: Urine 1400 Urethral (Mackenzie) 1400 Stool 0 Urine/Stool Mix 0 Emesis 0 Oral Regurgitation 0 Other 0 Other: # Voids Urethral (Mackenzie) 0 # Bowel Movements 1 - Medications Active Medications: Active Medications Generic Name Dose Route Start Last Admin Trade Name Freq PRN Reason Stop Dose Admin Acetaminophen 650 mg 12/05/17 12:27 Tylenol 650 Mg Supp RC Q6H PRN Fever >100.4 F Ascorbic Acid 500 mg 11/28/17 11:30 12/12/17 09:14 Vitamin C 500 Mg Tab PO 500 mg DAILY SHIV Administration Bacitracin 1 ea 11/28/17 08:51 11/28/17 09:34 Bacitracin TOP 1 ea Q6 PRN Administration Swelling Chlordiazepoxide 25 mg 12/12/17 07:15 12/12/17 13:27 Librium PO 25 mg Q8 SHIV Administration Protocol Clonidine HCl 0.2 mg 12/12/17 10:00 12/12/17 09:09 Catapres PO Not Given BID SHIV Cyproheptadine HCl 4 mg 12/05/17 11:15 12/12/17 11:51 Periactin PO 4 mg Q8H SHIV Administration Docusate Sodium 100 mg 12/05/17 18:00 12/12/17 09:09 Colace Liquid PO 100 mg BID SHIV Administration Folic Acid 1 mg 12/01/17 10:15 12/12/17 09:12 Folic Acid PO 1 mg DAILY SHIV Administration Heparin Sodium (Porcine) 5,000 units 12/03/17 08:15 12/12/17 13:28 Heparin SC 5,000 units Q8 SHIV Administration Protocol Hydralazine HCl 10 mg 11/29/17 14:56 12/02/17 12:56 Apresoline IVP 10 mg Q6 PRN Administration give if SBP >160 Meropenem 500 mg/ Sodium 100 mls @ 100 mls/hr 12/04/17 22:00 12/12/17 13:28 Chloride IVPB 100 mls/hr Q8 [facility] Administration Protocol Vancomycin HCl 1 gm in 250 mls @ 166.667 mls/hr 12/08/17 10:26 12/12/17 09:45 Vancomycin 1gm IVPB 166.667 mls/hr Q12H SHIV Administration Protocol Insulin Human Lispro 0 units 11/26/17 09:00 12/12/17 09:03 Humalog Low SC Not Given Q6H SHIV Protocol Levalbuterol HCl 0.63 mg 12/02/17 09:55 12/12/17 07:13 Xopenex IH 0.63 mg [id number] PRN Administration Shortness of Breath Levetiracetam 750 mg 12/04/17 22:00 12/12/17 09:09 Keppra PO 750 mg Q12 SHIV Administration Lorazepam 4 mg 12/12/17 04:00 12/12/17 11:51 Ativan IVP 4 mg Q4H SHIV Administration Protocol Lorazepam 4 mg 12/12/17 06:00 12/12/17 06:15 Ativan IVP 4 mg Q2 PRN Administration Agitation Protocol Multivitamins/Minerals 1 tab 11/29/17 08:00 12/12/17 08:07 Therapeutic-M Tab PO 1 tab 0800 SHIV Administration Pantoprazole Sodium 40 mg 11/22/17 10:00 12/12/17 09:13 Protonix Inj IVP 40 mg DAILY SHIV Administration Polyethylene Glycol 17 gm 12/05/17 18:00 12/12/17 09:12 Miralax PO 17 gm BID SHIV Administration Propranolol HCl 40 mg 12/05/17 11:00 12/12/17 09:11 Inderal PO 40 mg BID SHIV Administration Quetiapine Fumarate 25 mg 12/09/17 11:45 Seroquel PO BID SHIV Protocol Thiamine HCl 100 mg 11/28/17 14:00 12/12/17 13:28 Vitamin B1 Tab PO 100 mg TID SHIV Administration Tobramycin Sulfate 0.08 gm 12/05/17 11:00 12/12/17 07:19 Tobramycin Inj IH 0.08 gm [id number] SHIV Administration Valproate Sodium 750 mg 12/09/17 22:00 12/12/17 09:16 Depakene Oral Soln PO 750 mg Q12 SHIV Administration - Patient Studies Lab Studies: Lab Studies 12/12/17 12/12/17 12/12/17 Range/Units 14:47 08:55 06:15 WBC 7.6 (4.5-11.0) 10^3/ul RBC 3.73 (3.5-6.1) 10^6/uL Hgb 11.1 L (14.0-18.0) g/dL Hct 33.8 L (42.0-52.0) % MCV 90.6 (80.0-105.0) fl MCH 29.8 (25.0-35.0) pg MCHC 32.8 (31.0-37.0) g/dl RDW 13.7 (11.5-14.5) % Plt Count 440 (120.0-450.0) 10^3/uL MPV 9.9 (7.0-11.0) fl Gran % 76.5 H (50.0-68.0) % Lymph % (Auto) 12.8 L (22.0-35.0) % [place] % (Auto) 8.9 H (1.0-6.0) % Eos % (Auto) 1.5 (1.5-5.0) % Baso % (Auto) 0.3 (0.0-3.0) % Gran # 5.79 (1.4-6.5) Lymph # (Auto) 1.0 L (1.2-3.4) [place] # (Auto) 0.7 H (0.1-0.6) Eos # (Auto) 0.1 (0.0-0.7) Baso # (Auto) 0.02 (0.0-2.0) K/mm3 Haptoglobin (43-212) mg/dL Sodium (132-148) mmol/L Potassium (3.6-5.0) mmol/L Chloride (98-107) mmol/L Carbon Dioxide (21-33) mmol/L Anion Gap (10-20) BUN (7-21) mg/dL Creatinine (0.8-1.5) mg/dl Est GFR ( Amer) Est GFR (Non-Af Amer) POC Glucose (mg/dL) 106 106 (65-110) mg/dL Random Glucose (70-110) mg/dL Calcium (8.4-10.5) mg/dL Phosphorus (2.5-4.5) mg/dL Magnesium (1.7-2.2) mg/dL Total Bilirubin (0.2-1.2) mg/dL AST (17-59) U/L ALT (9-46) U/L Alkaline Phosphatase (38-126) U/L Liver Fibrosis Score Liver Fibrosis Interp Liver Fibrosis Comment Liver Fibrosis Stage Necroinflammator Score Necroinflam Score Cmmt Necroinflammator Grade Total Protein (5.8-8.3) g/dL Albumin (3.0-4.8) g/dL Globulin gm/dL Albumin/Globulin Ratio (1.1-1.8) Khxtv-3-Jwmudjhohzuuo (106-279) mg/dL Apolipoprotein A-1 (94-176) mg/dL Ref Lab Specimen ID 12/12/17 12/12/17 12/11/17 Range/Units 06:15 04:19 20:58 WBC (4.5-11.0) 10^3/ul RBC (3.5-6.1) 10^6/uL Hgb (14.0-18.0) g/dL Hct (42.0-52.0) % MCV (80.0-105.0) fl MCH (25.0-35.0) pg MCHC (31.0-37.0) g/dl RDW (11.5-14.5) % Plt Count (120.0-450.0) 10^3/uL MPV (7.0-11.0) fl Gran % (50.0-68.0) % Lymph % (Auto) (22.0-35.0) % [place] % (Auto) (1.0-6.0) % Eos % (Auto) (1.5-5.0) % Baso % (Auto) (0.0-3.0) % Gran # (1.4-6.5) Lymph # (Auto) (1.2-3.4) [place] # (Auto) (0.1-0.6) Eos # (Auto) (0.0-0.7) Baso # (Auto) (0.0-2.0) K/mm3 Haptoglobin (43-212) mg/dL Sodium 144 (132-148) mmol/L Potassium 4.0 (3.6-5.0) mmol/L Chloride 106 (98-107) mmol/L Carbon Dioxide 30 (21-33) mmol/L Anion Gap 13 (10-20) BUN 8 (7-21) mg/dL Creatinine 0.7 L (0.8-1.5) mg/dl Est GFR ( Amer) > 60 Est GFR (Non-Af Amer) > 60 POC Glucose (mg/dL) 114 H 95 (65-110) mg/dL Random Glucose 117 H (70-110) mg/dL Calcium 8.7 (8.4-10.5) mg/dL Phosphorus 3.3 (2.5-4.5) mg/dL Magnesium 2.3 H (1.7-2.2) mg/dL Total Bilirubin 0.6 (0.2-1.2) mg/dL AST 47 (17-59) U/L ALT 67 H (9-46) U/L Alkaline Phosphatase 71 (38-126) U/L Liver Fibrosis Score Liver Fibrosis Interp Liver Fibrosis Comment Liver Fibrosis Stage Necroinflammator Score Necroinflam Score Cmmt Necroinflammator Grade Total Protein 5.5 L (5.8-8.3) g/dL Albumin 2.9 L (3.0-4.8) g/dL Globulin 2.6 gm/dL Albumin/Globulin Ratio 1.1 (1.1-1.8) Eouvu-1-Kmtccodtnluuy (106-279) mg/dL Apolipoprotein A-1 (94-176) mg/dL Ref Lab Specimen ID 12/11/17 12/07/17 Range/Units 17:50 06:50 WBC (4.5-11.0) 10^3/ul RBC (3.5-6.1) 10^6/uL Hgb (14.0-18.0) g/dL Hct (42.0-52.0) % MCV (80.0-105.0) fl MCH (25.0-35.0) pg MCHC (31.0-37.0) g/dl RDW (11.5-14.5) % Plt Count (120.0-450.0) 10^3/uL MPV (7.0-11.0) fl Gran % (50.0-68.0) % Lymph % (Auto) (22.0-35.0) % [place] % (Auto) (1.0-6.0) % Eos % (Auto) (1.5-5.0) % Baso % (Auto) (0.0-3.0) % Gran # (1.4-6.5) Lymph # (Auto) (1.2-3.4) [place] # (Auto) (0.1-0.6) Eos # (Auto) (0.0-0.7) Baso # (Auto) (0.0-2.0) K/mm3 Haptoglobin 203 (43-212) mg/dL Sodium (132-148) mmol/L Potassium (3.6-5.0) mmol/L Chloride (98-107) mmol/L Carbon Dioxide (21-33) mmol/L Anion Gap (10-20) BUN (7-21) mg/dL Creatinine (0.8-1.5) mg/dl Est GFR ( Amer) Est GFR (Non-Af Amer) POC Glucose (mg/dL) 88 (65-110) mg/dL Random Glucose (70-110) mg/dL Calcium (8.4-10.5) mg/dL Phosphorus (2.5-4.5) mg/dL Magnesium (1.7-2.2) mg/dL Total Bilirubin 0.3 (0.2-1.2) mg/dL AST (17-59) U/L ALT 48 H (9-46) U/L Alkaline Phosphatase (38-126) U/L Liver Fibrosis Score 0.17 Liver Fibrosis Interp See note Liver Fibrosis Comment See note Liver Fibrosis Stage F0 Necroinflammator Score 0.24 Necroinflam Score Cmmt See note Necroinflammator Grade A0-a1 Total Protein (5.8-8.3) g/dL Albumin (3.0-4.8) g/dL Globulin gm/dL Albumin/Globulin Ratio (1.1-1.8) [id number] 110 (106-279) mg/dL Apolipoprotein A-1 63 L (94-176) mg/dL Ref Lab Specimen ID [id number] Laboratory Results - last 24 hr 12/07/17 12/11/17 12/11/17 06:50 17:50 20:58 WBC RBC Hgb Hct MCV MCH MCHC RDW Plt Count MPV Gran % Lymph % (Auto) [place] % (Auto) Eos % (Auto) Baso % (Auto) Gran # Lymph # (Auto) [place] # (Auto) Eos # (Auto) Baso # (Auto) Haptoglobin 203 Sodium Potassium Chloride Carbon Dioxide Anion Gap BUN Creatinine Est GFR ( Amer) Est GFR (Non-Af Amer) POC Glucose (mg/dL) 88 95 Random Glucose Calcium Phosphorus Magnesium Total Bilirubin 0.3 AST ALT 48 H Alkaline Phosphatase Liver Fibrosis Score 0.17 Liver Fibrosis Interp See note Liver Fibrosis Comment See note Liver Fibrosis Stage F0 Necroinflammator Score 0.24 Necroinflam Score Cmmt See note Necroinflammator Grade A0-a1 Total Protein Albumin Globulin Albumin/Globulin Ratio Ocfey-4-Ogzfdbqjbgrqp 110 Apolipoprotein A-1 63 L Ref Lab Specimen ID [id number] 12/12/17 12/12/17 12/12/17 04:19 06:15 06:15 WBC 7.6 RBC 3.73 Hgb 11.1 L Hct 33.8 L MCV 90.6 MCH 29.8 MCHC 32.8 RDW 13.7 Plt Count 440 MPV 9.9 Gran % 76.5 H Lymph % (Auto) 12.8 L [place] % (Auto) 8.9 H Eos % (Auto) 1.5 Baso % (Auto) 0.3 Gran # 5.79 Lymph # (Auto) 1.0 L [place] # (Auto) 0.7 H Eos # (Auto) 0.1 Baso # (Auto) 0.02 Haptoglobin Sodium 144 Potassium 4.0 Chloride 106 Carbon Dioxide 30 Anion Gap 13 BUN 8 Creatinine 0.7 L Est GFR ( Amer) > 60 Est GFR (Non-Af Amer) > 60 POC Glucose (mg/dL) 114 H Random Glucose 117 H Calcium 8.7 Phosphorus 3.3 Magnesium 2.3 H Total Bilirubin 0.6 AST 47 ALT 67 H Alkaline Phosphatase 71 Liver Fibrosis Score Liver Fibrosis Interp Liver Fibrosis Comment Liver Fibrosis Stage Necroinflammator Score Necroinflam Score Cmmt Necroinflammator Grade Total Protein 5.5 L Albumin 2.9 L Globulin 2.6 Albumin/Globulin Ratio 1.1 [id number] Apolipoprotein A-1 Ref Lab Specimen ID [id number] 12/12/17 08:55 14:47 WBC RBC Hgb Hct MCV MCH MCHC RDW Plt Count MPV Gran % Lymph % (Auto) [place] % (Auto) Eos % (Auto) Baso % (Auto) Gran # Lymph # (Auto) [place] # (Auto) Eos # (Auto) Baso # (Auto) Haptoglobin Sodium Potassium Chloride Carbon Dioxide Anion Gap BUN Creatinine Est GFR ( Amer) Est GFR (Non-Af Amer) POC Glucose (mg/dL) 106 106 Random Glucose Calcium Phosphorus Magnesium Total Bilirubin AST ALT Alkaline Phosphatase Liver Fibrosis Score Liver Fibrosis Interp Liver Fibrosis Comment Liver Fibrosis Stage Necroinflammator Score Necroinflam Score Cmmt Necroinflammator Grade Total Protein Albumin Globulin Albumin/Globulin Ratio [id number] Apolipoprotein A-1 Ref Lab Specimen ID EKG/Cardiology Studies: Cardiology / EKG Studies 12/12/17 EKG [ELECTROCARDIOGRAM] Routine Comment: Reason For Exam: prolong QT Attending/Attestation - Attestation I have personally seen and examined this patient.: Yes I have fully participated in the care of the patient.: Yes I have reviewed all pertinent clinical information: Yes Notes (Text): 12/12/17 16:05 62 yo male with VDRF after he needed to be intubated for airway protection due to severe agitation, DT and etoh withdrawal superimposed on his underlying psychiatric disorder. sedation drips are weaned off, ativan prn and librium via peg is going. 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 Failed pressure support trial today again. Was tachypneic and in visible respiratory distress. Put back on PRVC. afebrile and no leukocytosis, on abx . CXR-improved aeration b/l. Will complete 8 days abx and if clinically stable and procal goes down-->will consider stopping it. protective lung vent strategy, conservative fluid and 02 managmeent, HOB>35, oral hygiene, weaning sedation further, daily weaning trials. DVT/GI prophylaxis. tolerates enteral nutrition well, BM yesterday. ccm time 40 min
[2017-12-12] MEDS: levETIRAcetam 500 mg/5ml UD cups PO SCH ×2 (09:09→22:00)
[2017-12-12] MEDS: POLYETHYLENE GLYCOL 3350 17 GM/Dose PACKET PO SCH ×2 (09:12→18:16)
--- NOTE | 2017-12-12 09:14 | RAD ---
HISTORY: intubated COMPARISON: No prior. FINDINGS: LUNGS: No active pulmonary disease. PLEURA: No significant pleural effusion identified, no pneumothorax apparent. CARDIOVASCULAR: Mild cardiomegaly OSSEOUS STRUCTURES: No significant abnormalities. VISUALIZED UPPER ABDOMEN: Normal. OTHER FINDINGS: Right-sided PICC line in the right atrium. Tracheostomy tube present IMPRESSION: No active disease.
[2017-12-12] MEDS: Valproic Acid 250 mg/5 ml UD Cup PO SCH ×2 (09:16→22:00)
--- NOTE | 2017-12-12 09:22 | CP.PCM.PN ---
Subjective - Date & Time of Evaluation Date of Evaluation: 12/12/17 Time of Evaluation: 07:00 - Subjective Subjective: Neurology progress note: Pt seen and examined at bedside. No acute events overnight. Pt is s/p trach and peg. He is of of Dipran and preceex at this time. This morning he is opening his eyes spontaneously. Not following commands. Still agitated, restraints in place for patient safety. Ativan scheduled and PRN. 12 Point ROS limited due to Trach Objective - Vital Signs/Intake and Output Vital Signs (last 24 hours): Temp Pulse Resp BP Pulse Ox 98.1 F 100 H 22 143/86 99 12/12/17 04:00 12/12/17 09:11 12/12/17 04:00 12/12/17 09:11 12/12/17 08:01 Intake and Output: 12/12/17 12/12/17 06:59 18:59 Intake Total 1700 Output Total 1400 Balance 300 - Medications Medications: Current Medications Acetaminophen (Tylenol 650 Mg Supp) 650 mg RC Q6H PRN PRN Reason: Fever >100.4 F Ascorbic Acid (Vitamin C 500 Mg Tab) 500 mg PO DAILY [facility] Last Admin: 12/12/17 09:14 Dose: 500 mg Bacitracin (Bacitracin) 1 ea TOP Q6 PRN PRN Reason: Swelling Last Admin: 11/28/17 09:34 Dose: 1 ea Chlordiazepoxide (Librium) 25 mg PO Q8 LOBO PRN Reason: Protocol Last Admin: 12/12/17 08:07 Dose: 25 mg Clonidine HCl (Catapres) 0.2 mg PO BID [facility] Last Admin: 12/12/17 09:09 Dose: Not Given Cyproheptadine HCl (Periactin) 4 mg PO Q8H [facility] Last Admin: 12/12/17 03:59 Dose: 4 mg Docusate Sodium (Colace Liquid) 100 mg PO BID [facility] Last Admin: 12/12/17 09:09 Dose: 100 mg Folic Acid (Folic Acid) 1 mg PO DAILY [facility] Last Admin: 12/12/17 09:12 Dose: 1 mg Heparin Sodium (Porcine) (Heparin) 5,000 units SC Q8 LOBO PRN Reason: Protocol Last Admin: 12/12/17 06:15 Dose: Not Given Hydralazine HCl (Apresoline) 10 mg IVP Q6 PRN PRN Reason: give if SBP >160 Last Admin: 12/02/17 12:56 Dose: 10 mg Dexmedetomidine HCl (Precedex 400mcg/100ml) 400 mcg in 100 mls @ 3.629 mls/hr IV .Q24H PRN; Protocol; 0.2 MCG/KG/HR PRN Reason: Agitation Last Titration: 12/12/17 06:00 Dose: Infused Meropenem 500 mg/ Sodium (Chloride) 100 mls @ 100 mls/hr IVPB Q8 LOBO PRN Reason: Protocol Last Admin: 12/12/17 06:31 Dose: 100 mls/hr Vancomycin HCl (Vancomycin 1gm) 1 gm in 250 mls @ 166.667 mls/hr IVPB Q12H LOBO PRN Reason: Protocol Last Admin: 12/11/17 22:51 Dose: 166.667 mls/hr Propofol (Diprivan) 1,000 mg in 100 mls @ 2.671 mls/hr IV .Q24H PRN; Protocol; 5 MCG/KG/MIN PRN Reason: TITRATE PER MD ORDER Last Titration: 12/11/17 19:00 Dose: Infused Sodium Chloride (Sodium Chloride 0.9%) 1,000 mls @ 100 mls/hr IV .Q10H [facility] Last Admin: 12/10/17 07:09 Dose: 100 mls/hr Insulin Human Lispro (Humalog Low) 0 units SC Q6H [facility]OBO PRN Reason: Protocol Last Admin: 12/12/17 09:03 Dose: Not Given Levalbuterol HCl (Xopenex) 0.63 mg IH [id number] PRN PRN Reason: Shortness of Breath Last Admin: 12/12/17 07:13 Dose: 0.63 mg Levetiracetam (Keppra) 750 mg PO Q12 [facility] Last Admin: 12/12/17 09:09 Dose: 750 mg Lorazepam (Ativan) 4 mg IVP Q4H LOBO PRN Reason: Protocol Last Admin: 12/12/17 08:06 Dose: 4 mg Lorazepam (Ativan) 4 mg IVP Q2 PRN; Protocol PRN Reason: Agitation Last Admin: 12/12/17 06:15 Dose: 4 mg Multivitamins/Minerals (Therapeutic-M Tab) 1 tab PO 0800 [facility] Last Admin: 12/12/17 08:07 Dose: 1 tab Pantoprazole Sodium (Protonix Inj) 40 mg IVP DAILY [facility] Last Admin: 12/12/17 09:13 Dose: 40 mg Polyethylene Glycol (Miralax) 17 gm PO BID [facility] Last Admin: 12/12/17 09:12 Dose: 17 gm Propranolol HCl (Inderal) 40 mg PO BID [facility] Last Admin: 12/12/17 09:11 Dose: 40 mg Quetiapine Fumarate (Seroquel) 25 mg PO BID [facility] PRN Reason: Protocol Thiamine HCl (Vitamin B1 Tab) 100 mg PO TID [facility] Last Admin: 12/12/17 09:14 Dose: 100 mg Tobramycin Sulfate (Tobramycin Inj) 0.08 gm IH [id number] [facility] Last Admin: 12/12/17 07:19 Dose: 0.08 gm Valproate Sodium (Depakene Oral Soln) 750 mg PO Q12 [facility] Last Admin: 12/12/17 09:16 Dose: 750 mg - Labs Labs: 12/12/17 06:15 12/12/17 06:15 PT 15.4 SECONDS (9.4-12.5) H 12/10/17 07:00 INR 1.33 (0.93-1.08) H 12/10/17 07:00 - Eye Exam Eye Exam: EOMI, PERRL Pupil Exam: NORMAL ACCOMODATION - Neurological Exam Neuro motor strength exam: Left Upper Extremity: 5, Right Upper Extremity: 5, Left Lower Extremity: 5, Right Lower Extremity: 5 Additional comments: Opens eyes spontaneously, not following commands, moves all extremities. Assessment and Plan - Assessment and Plan (Free Text) Assessment: 62yo M with PMHx of Bipolar disorder and ETOH abuse in ICU for DTs requiring intubation and sedation with precedex. EEG shows subclinical seizures?, repeat EEG did not show any signs of seizures. - EEG ordered to r/o seizures - Cont Depakote 750mg BID and Keppra 750mg Q12 - Seroquel 25mg BID on hold due to QT prolongation - will repeat EKG - Currently off precedex and diprivan, On ativan lobo and prn for agitation - Seizure precautions - Continue antibiotics as per ID - Blood pressure control - Maintain blood sugars 140-180 Case and plan was reviewed and discussed in detail with Dr Rosenebrg.
[2017-12-12] MEDS: Vancomycin 1gm in NS 250ml 1 GM/250 ML BAG IVPB SCH ×2 (09:45→21:34)
--- NOTE | 2017-12-12 16:15 | CP.PCM.PN ---
Subjective - Date & Time of Evaluation Date of Evaluation: 12/12/17 Time of Evaluation: 15:00 - Subjective Subjective: Infectious Disease Follow Up: December 12, 2017 62 yo male with medical history that includes Bipolar disorder and alcohol abuse presented with EtOH intoxication and now in withdrawals. Originally in the psych floor for bipolar disease treatment and suicidal ideation on 11/21/2017. The patient required intubation. ID initially called for possible aspiration pneumonia. No fevers, leukocytosis at this time. Remains intubated. Still no fevers or leukocytosis. Remains sedated. Noted blistered skin on right hand that slightly improved. Persistent fevers up to 102.0 F earlier in course of hospitalization but afebrile the last few days.. Still no leukocytosis. Cultures from 11/30/2017 negative. New cultures sent 12/01-. Multiple blisters on the right hand. Fluid filler and dark in color. Would obtain fluid from blisters for culture. Would consider CT of chest/ abdomen/pelvis. Continue on meropenem for antibiotic coverage at this point. Also on inhaled tobramycin and IV Zyvox. No new issues. Difficult extubation. Patient severely agitated when taken off sedation. Tremors present and more pronounced when off sedation. Currently afebrile but still with diaphoresis and tremors. Does not follow commands. Trach and PEG Mentally no improvement. Chest X-ray still with patchy infiltrate in right lung and atelectasis. Objective - Vital Signs/Intake and Output Vital Signs (last 24 hours): Temp Pulse Resp BP Pulse Ox 99.4 F 85 22 138/88 100 12/12/17 11:36 12/12/17 12:00 12/12/17 04:00 12/12/17 12:00 12/12/17 12:00 Intake and Output: 12/12/17 12/12/17 06:59 18:59 Intake Total 1700 Output Total 1400 Balance 300 - Medications Medications: Current Medications Acetaminophen (Tylenol 650 Mg Supp) 650 mg RC Q6H PRN PRN Reason: Fever >100.4 F Ascorbic Acid (Vitamin C 500 Mg Tab) 500 mg PO DAILY [facility] Last Admin: 12/12/17 09:14 Dose: 500 mg Bacitracin (Bacitracin) 1 ea TOP Q6 PRN PRN Reason: Swelling Last Admin: 11/28/17 09:34 Dose: 1 ea Chlordiazepoxide (Librium) 25 mg PO Q8 [facility] PRN Reason: Protocol Last Admin: 12/12/17 13:27 Dose: 25 mg Clonidine HCl (Catapres) 0.2 mg PO BID [facility] Last Admin: 12/12/17 09:09 Dose: Not Given Cyproheptadine HCl (Periactin) 4 mg PO Q8H [facility] Last Admin: 12/12/17 11:51 Dose: 4 mg Docusate Sodium (Colace Liquid) 100 mg PO BID [facility] Last Admin: 12/12/17 09:09 Dose: 100 mg Folic Acid (Folic Acid) 1 mg PO DAILY [facility] Last Admin: 12/12/17 09:12 Dose: 1 mg Heparin Sodium (Porcine) (Heparin) 5,000 units SC Q8 [facility] PRN Reason: Protocol Last Admin: 12/12/17 13:28 Dose: 5,000 units Hydralazine HCl (Apresoline) 10 mg IVP Q6 PRN PRN Reason: give if SBP >160 Last Admin: 12/02/17 12:56 Dose: 10 mg Meropenem 500 mg/ Sodium (Chloride) 100 mls @ 100 mls/hr IVPB Q8 [facility] PRN Reason: Protocol Last Admin: 12/12/17 13:28 Dose: 100 mls/hr Vancomycin HCl (Vancomycin 1gm) 1 gm in 250 mls @ 166.667 mls/hr IVPB Q12H [facility] PRN Reason: Protocol Last Admin: 12/12/17 09:45 Dose: 166.667 mls/hr Insulin Human Lispro (Humalog Low) 0 units SC Q6H [facility] PRN Reason: Protocol Last Admin: 12/12/17 09:03 Dose: Not Given Levalbuterol HCl (Xopenex) 0.63 mg IH [id number] PRN PRN Reason: Shortness of Breath Last Admin: 12/12/17 07:13 Dose: 0.63 mg Levetiracetam (Keppra) 750 mg PO Q12 [facility] Last Admin: 12/12/17 09:09 Dose: 750 mg Lorazepam (Ativan) 4 mg IVP Q4H [facility] PRN Reason: Protocol Last Admin: 12/12/17 11:51 Dose: 4 mg Lorazepam (Ativan) 4 mg IVP Q2 PRN; Protocol PRN Reason: Agitation Last Admin: 12/12/17 06:15 Dose: 4 mg Multivitamins/Minerals (Therapeutic-M Tab) 1 tab PO 0800 [facility] Last Admin: 12/12/17 08:07 Dose: 1 tab Pantoprazole Sodium (Protonix Inj) 40 mg IVP DAILY [facility] Last Admin: 12/12/17 09:13 Dose: 40 mg Polyethylene Glycol (Miralax) 17 gm PO BID [facility] Last Admin: 12/12/17 09:12 Dose: 17 gm Propranolol HCl (Inderal) 40 mg PO BID [facility] Last Admin: 12/12/17 09:11 Dose: 40 mg Quetiapine Fumarate (Seroquel) 25 mg PO BID [facility] PRN Reason: Protocol Thiamine HCl (Vitamin B1 Tab) 100 mg PO TID [facility] Last Admin: 12/12/17 13:28 Dose: 100 mg Tobramycin Sulfate (Tobramycin Inj) 0.08 gm IH [id number] [facility] Last Admin: 12/12/17 07:19 Dose: 0.08 gm Valproate Sodium (Depakene Oral Soln) 750 mg PO Q12 [facility] Last Admin: 12/12/17 09:16 Dose: 750 mg - Labs Labs: 12/12/17 06:15 12/12/17 06:15 PT 15.4 SECONDS (9.4-12.5) H 12/10/17 07:00 INR 1.33 (0.93-1.08) H 12/10/17 07:00 - Constitutional Appears: Chronically Ill - Head Exam Additional comments: intubated and ventilated. - Eye Exam Eye Exam: EOMI, PERRL Pupil Exam: NORMAL ACCOMODATION, PERRL - ENT Exam ENT Exam: Mucous Membranes Moist, Normal External Ear Exam, TM's Normal Bilaterally - Neck Exam Neck Exam: Full ROM, Normal Inspection - Respiratory Exam Respiratory Exam: Clear to Ausculation Bilateral, NORMAL BREATHING PATTERN. absent: Rales, Rhonchi, Wheezes - Cardiovascular Exam Cardiovascular Exam: REGULAR RHYTHM, RRR, +S1, +S2 - GI/Abdominal Exam GI & Abdominal Exam: Soft, Normal Bowel Sounds. absent: Distended, Tenderness - Extremities Exam Extremities Exam: Joint Swelling, Pedal Edema - Neurological Exam Additional comments: poorly responsive and sedated. - Skin Skin Exam: Intact Additional comments: except Multiple blisters on the right hand. Fluid filler and dark in color. Most blisters are now burst. Assessment and Plan - Assessment and Plan (Free Text) Assessment: 62 yo male with EtOH abuse. Developed EtOH withdrawal and now required intubation and ventilation. The patient was being evaluated by ID for potential aspiration. The patient is currently on Cefepime and Vancomycin. If aspiration is a significant concern, would either add Flagyl IV or switch Cefepime to Meropenem or Zosyn. Febrile several days ago up to 102 F. Afebrile the last few days. No leukocytosis. No findings on Chest X-ray. Supportive care. Procalcitonin is 0.14 which is low. Noted procalcitonin repeated multiple times and all showing low values. Suggests strongly against bacterial causes but does not rule out viral. More likely secondary to the EtOH withdrawal and Delirium Tremens. Case discussed with team. Off antibiotics now. Will Monitor. Difficult extubation/wean from ventilation. Agitation when off sedation. Afebrile today but one temperature value showed hypothermia. Repeat cultures with next fever. Check urinalysis and urine culture. 11/30/2017 cultures negative so far. 12/01/2017 cultures with no specific growth. Afebrile the last few dates. Sputum cultures with yeast. Chest X-ray suggesting HCAP. Antibiotics continues on Zyvox and Meropenem. For now the patient has remained afebrile. Supportive care. No improvement mentally. Extremely agitated when sedation stopped. Of concern is that the temperatures today have been borderline feverish. Trach and PEG done. Thank you for allowing me to participate in the care of the patient, we will follow with you.
--- NOTE | 2017-12-12 16:49 | CP.PCM.PN ---
<Sarkis Fuentes - Last Filed: 12/12/17 16:46> Subjective - Date & Time of Evaluation Date of Evaluation: 12/12/17 Time of Evaluation: 07:20 - Subjective Subjective: Medicine progress note for Dr. Chaparro Hospitalist Service Patient seen and examined at bedside. Patient remains is status post tracheostomy tube placement yesterday. He is now off of sedation but is currently on benzodiazepines. Could not obtain ROS due to altered mental status. Objective - Vital Signs/Intake and Output Vital Signs (last 24 hours): Temp Pulse Resp BP Pulse Ox 99.9 F H 85 22 141/77 97 12/12/17 16:00 12/12/17 16:00 12/12/17 04:00 12/12/17 16:00 12/12/17 16:00 Intake and Output: 12/12/17 12/12/17 06:59 18:59 Intake Total 1700 Output Total 1400 Balance 300 - Medications Medications: Current Medications Acetaminophen (Tylenol 650 Mg Supp) 650 mg RC Q6H PRN PRN Reason: Fever >100.4 F Ascorbic Acid (Vitamin C 500 Mg Tab) 500 mg PO DAILY [facility] Last Admin: 12/12/17 09:14 Dose: 500 mg Bacitracin (Bacitracin) 1 ea TOP Q6 PRN PRN Reason: Swelling Last Admin: 11/28/17 09:34 Dose: 1 ea Chlordiazepoxide (Librium) 25 mg PO Q8 SHIV PRN Reason: Protocol Last Admin: 12/12/17 13:27 Dose: 25 mg Clonidine HCl (Catapres) 0.2 mg PO BID [facility] Last Admin: 12/12/17 09:09 Dose: Not Given Cyproheptadine HCl (Periactin) 4 mg PO Q8H [facility] Last Admin: 12/12/17 11:51 Dose: 4 mg Docusate Sodium (Colace Liquid) 100 mg PO BID [facility] Last Admin: 12/12/17 09:09 Dose: 100 mg Folic Acid (Folic Acid) 1 mg PO DAILY [facility] Last Admin: 12/12/17 09:12 Dose: 1 mg Heparin Sodium (Porcine) (Heparin) 5,000 units SC Q8 SHIV PRN Reason: Protocol Last Admin: 12/12/17 13:28 Dose: 5,000 units Hydralazine HCl (Apresoline) 10 mg IVP Q6 PRN PRN Reason: give if SBP >160 Last Admin: 12/02/17 12:56 Dose: 10 mg Meropenem 500 mg/ Sodium (Chloride) 100 mls @ 100 mls/hr IVPB Q8 SHIV PRN Reason: Protocol Last Admin: 12/12/17 13:28 Dose: 100 mls/hr Vancomycin HCl (Vancomycin 1gm) 1 gm in 250 mls @ 166.667 mls/hr IVPB Q12H SHIV PRN Reason: Protocol Last Admin: 12/12/17 09:45 Dose: 166.667 mls/hr Insulin Human Lispro (Humalog Low) 0 units SC Q6H SHIV PRN Reason: Protocol Last Admin: 12/12/17 16:09 Dose: Not Given Levalbuterol HCl (Xopenex) 0.63 mg IH [id number] PRN PRN Reason: Shortness of Breath Last Admin: 12/12/17 07:13 Dose: 0.63 mg Levetiracetam (Keppra) 750 mg PO Q12 [facility] Last Admin: 12/12/17 09:09 Dose: 750 mg Lorazepam (Ativan) 4 mg IVP Q4H SHIV PRN Reason: Protocol Last Admin: 12/12/17 16:11 Dose: 4 mg Lorazepam (Ativan) 4 mg IVP Q2 PRN; Protocol PRN Reason: Agitation Last Admin: 12/12/17 06:15 Dose: 4 mg Multivitamins/Minerals (Therapeutic-M Tab) 1 tab PO 0800 [facility] Last Admin: 12/12/17 08:07 Dose: 1 tab Pantoprazole Sodium (Protonix Inj) 40 mg IVP DAILY [facility] Last Admin: 12/12/17 09:13 Dose: 40 mg Polyethylene Glycol (Miralax) 17 gm PO BID [facility] Last Admin: 12/12/17 09:12 Dose: 17 gm Propranolol HCl (Inderal) 40 mg PO BID [facility] Last Admin: 12/12/17 09:11 Dose: 40 mg Quetiapine Fumarate (Seroquel) 25 mg PO BID SHIV PRN Reason: Protocol Thiamine HCl (Vitamin B1 Tab) 100 mg PO TID [facility] Last Admin: 12/12/17 13:28 Dose: 100 mg Tobramycin Sulfate (Tobramycin Inj) 0.08 gm IH [id number] [facility] Last Admin: 12/12/17 07:19 Dose: 0.08 gm Valproate Sodium (Depakene Oral Soln) 750 mg PO Q12 [facility]IV Last Admin: 12/12/17 09:16 Dose: 750 mg - Labs Labs: 12/12/17 06:15 12/12/17 06:15 PT 15.4 SECONDS (9.4-12.5) H 12/10/17 07:00 INR 1.33 (0.93-1.08) H 12/10/17 07:00 - Constitutional Appears: Chronically Ill - Head Exam Head Exam: ATRAUMATIC, NORMOCEPHALIC - Eye Exam Pupil Exam: Mydriatic, PERRL - ENT Exam ENT Exam: Mucous Membranes Moist - Neck Exam Additional comments: Tracheostomy in place - Respiratory Exam Additional comments: Coarse breath sounds bilaterally. On PRVC support with settings 50% FiO2, PEEP 5, Tidal Volume 400, Respiratory rate 18 - Cardiovascular Exam Cardiovascular Exam: REGULAR RHYTHM, +S1, +S2 - GI/Abdominal Exam GI & Abdominal Exam: Soft, Normal Bowel Sounds. absent: Distended, Tenderness Additional comments: PEG tube in place on left side of the abdomen. No obvious signs of infection from site of insertion - Exam Additional comments: mackenzie in place draining light yellow urine - Extremities Exam Additional comments: Right arm PICC line in place with no obvious signs of infection Upper and lower extremities with non-pitting edema Blisters on right hand - Neurological Exam Neurological Exam: Altered - Skin Skin Exam: Warm Assessment and Plan - Assessment and Plan (Free Text) Assessment: 62 year old male with PMHx of Bipolar disorder and ETOH abuse in ICU for DTs. Patient initially admitted to psych for suicidal ideation then transferred to in -patient due to severe ETOH withdrawal with DTs requiring high-dose sedation and intubation. Subclinical seizure noted on EEG performed on 11/30/17. Fevers likely due to DTs versus developing RLL consolidation and pleural effusion seen on CXR. Repeat EEG showing artifact likely from hand tremors. Patient's sister Bindu Ashton ([phone]) was able to get in touch with the critical care team and advocate for PEG placement, and she will be the healthcare proxy from this point forward. PEG placed on 12/09/17, and trach placed on 12/11/17. Patient failed weaning off of pressure support ventilation. Plan: 1. ETOH withdrawal with Delirium Tremens - Intubated and sedated currently on precedex and diprivan. Vent settings as follows: 50% FiO2, PEEP 5, Tidal Volume 400, Respiratory rate 18 - Neuro consulted- recs appreciated - Continue CIWA protocol, seizure precaution, aspiration precaution - Ativan 4 mg IV prn agitation - Head CT negative for acute pathology - EEG with subclinical seizure seen; neurology recommends repeat EEG - IV Depakote and Keppra on board for seizure prophylaxis and mood stabilization - MRI brain showed persistent bilateral maxially, ethomoid and sphenoid sinusitis with mastoid effusions 2. Altered Mental Status, currently being sedated for DT's - CT head was unremarkable - thiamine increased to protect against encephalopathy - EEG with subclinical seizure seen however repeat EEG does not show this. It shows artifact likely caused by patient's hand tremors. - Per neurology, agitation possibly manifestation of patient's psychiatric illnesses. Seroquel was started and mood stabilizers were increased in dosages. 3. Right lower lobe consolidations secondary to HCAP - Seen on CXR and worsening, with pleural effusion as well - Possible pneumonia with pleural effusion versus atelectasis - Treated with Merrem and Vancomycin 4. Sinusitis - seen on MRI - Continue to treat with Inhaled Tobramycin 5. Blisters on hands - Multivitamin, vit C and Zinc added - Bacitracin ointment to be applied 6. Rhabdomyolysis - likely secondary to DT's - renal function has not been affected - CPK markedly elevated but is now downtrending - will monitor 7. Fever, suspected due to pneumonia - Possibly secondary to ETOH withdrawals - ID consult, appreciate recs - Currently afebrile - Follow up septic workup - negative Lower Extremity ultrasound - no vegetations seen on echo -Remeron as a cause of suspected but unlikely serotonin syndrome; cyproheptadine and propranolol started 8. Electrolyte imbalance - monitor and replete as needed 9. Transaminitis Due to chronic alcohol abuse, will discuss alcohol cessation with patient once no longer sedated. 10. Prophylaxis - SCDs - Aspiration precautions - Seizure precautions - Heparin SC - Protonix Disposition: Patient with trach but requires pressure support (Settings: 50% FiO2, PEEP 5, Tidal Volume 400, Respiratory rate 18). Right arm PICC line in place. Continue to attempt weaning off of ventilation support. Follow up with case management team for discharge planning. Discussed and seen with Dr. Chaparro <Charlotte Chaparro - Last Filed: 12/12/17 18:37> Objective - Vital Signs/Intake and Output Vital Signs (last 24 hours): Temp Pulse Resp BP Pulse Ox 99.9 F H 103 H 22 152/107 H 97 12/12/17 16:00 12/12/17 18:34 12/12/17 04:00 12/12/17 18:34 12/12/17 16:00 Intake and Output: 12/12/17 12/12/17 06:59 18:59 Intake Total 1700 Output Total 1400 Balance 300 - Medications Medications: Current Medications Acetaminophen (Tylenol 650 Mg Supp) 650 mg RC Q6H PRN PRN Reason: Fever >100.4 F Ascorbic Acid (Vitamin C 500 Mg Tab) 500 mg PO DAILY [facility] Last Admin: 12/12/17 09:14 Dose: 500 mg Bacitracin (Bacitracin) 1 ea TOP Q6 PRN PRN Reason: Swelling Last Admin: 11/28/17 09:34 Dose: 1 ea Clonidine HCl (Catapres) 0.2 mg PO BID [facility] Last Admin: 12/12/17 18:34 Dose: 0.2 mg Cyproheptadine HCl (Periactin) 4 mg PO Q8H [facility] Last Admin: 12/12/17 11:51 Dose: 4 mg Docusate Sodium (Colace Liquid) 100 mg PO BID [facility] Last Admin: 12/12/17 18:16 Dose: Not Given Folic Acid (Folic Acid) 1 mg PO DAILY [facility] Last Admin: 12/12/17 09:12 Dose: 1 mg Heparin Sodium (Porcine) (Heparin) 5,000 units SC Q8 SHIV PRN Reason: Protocol Last Admin: 12/12/17 13:28 Dose: 5,000 units Hydralazine HCl (Apresoline) 10 mg IVP Q6 PRN PRN Reason: give if SBP >160 Last Admin: 12/02/17 12:56 Dose: 10 mg Meropenem 500 mg/ Sodium (Chloride) 100 mls @ 100 mls/hr IVPB Q8 SHIV PRN Reason: Protocol Last Admin: 12/12/17 13:28 Dose: 100 mls/hr Vancomycin HCl (Vancomycin 1gm) 1 gm in 250 mls @ 166.667 mls/hr IVPB Q12H SHIV PRN Reason: Protocol Last Admin: 12/12/17 09:45 Dose: 166.667 mls/hr Insulin Human Lispro (Humalog Low) 0 units SC Q6H SHIV PRN Reason: Protocol Last Admin: 12/12/17 16:09 Dose: Not Given Levalbuterol HCl (Xopenex) 0.63 mg IH [id number] PRN PRN Reason: Shortness of Breath Last Admin: 12/12/17 07:13 Dose: 0.63 mg Levetiracetam (Keppra) 750 mg PO Q12 [facility] Last Admin: 12/12/17 09:09 Dose: 750 mg Lorazepam (Ativan) 2 mg IVP Q4H PRN; Protocol PRN Reason: alcohol withdrawals Last Admin: 12/12/17 17:34 Dose: 2 mg Lorazepam (Ativan) 4 mg PEG Q4H SHIV PRN Reason: Protocol Last Admin: 12/12/17 18:15 Dose: Not Given Multivitamins/Minerals (Therapeutic-M Tab) 1 tab PO 0800 [facility] Last Admin: 12/12/17 08:07 Dose: 1 tab Pantoprazole Sodium (Protonix Inj) 40 mg IVP DAILY [facility] Last Admin: 12/12/17 09:13 Dose: 40 mg Polyethylene Glycol (Miralax) 17 gm PO BID [facility] Last Admin: 12/12/17 18:16 Dose: Not Given Propranolol HCl (Inderal) 40 mg PO BID [facility] Last Admin: 12/12/17 18:27 Dose: 40 mg Thiamine HCl (Vitamin B1 Tab) 100 mg PO TID [facility] Last Admin: 12/12/17 18:33 Dose: 100 mg Tobramycin Sulfate (Tobramycin Inj) 0.08 gm IH [id number] [facility] Last Admin: 12/12/17 07:19 Dose: 0.08 gm Valproate Sodium (Depakene Oral Soln) 750 mg PO Q12 [facility] Last Admin: 12/12/17 09:16 Dose: 750 mg - Labs Labs: 12/12/17 06:15 12/12/17 06:15 PT 15.4 SECONDS (9.4-12.5) H 12/10/17 07:00 INR 1.33 (0.93-1.08) H 12/10/17 07:00 Attending/Attestation - Attestation I have personally seen and examined this patient.: Yes I have fully participated in the care of the patient.: Yes I have reviewed all pertinent clinical information, including history, physical exam and plan: Yes Notes (Text): 12/12/17 18:36 attending note; Patient seen and examined with the resident in ICU. patient is a 62 year old male with history of bipolar disorder and chronic alcohol abuse is admitted for alcohol withdrawal and delirium tremens. s/p PEG placement and Mid line placement . continue feeding. Status post trach placement. Continue weaning. Sedation is discontinued. Continue [id number] Ativan. Case discussed with psychiatrist in detail. Pneumonia; CXR reveals RLL consolidation. Patient is on Meropenem, vancomycin and tobramycin. UDS negative. Echo did not reveal any vegetation. will complete 7-[address] head was negative. Will continue Ativan. EEG revealed subclinical seizure on keppra. case discussed with social worker health services in detail for discharge planning. Paperwork completed. patient requires LTAC placement. Monitor closely in ICU.
--- NOTE | 2017-12-12 17:16 | CP.PCM.PCO ---
Addendum Addendum: 12/12/17 16:58 medical team requested this senior writer to follow-up on this patient for medication management and weaning protocol for benzodiazepines. Patient is well known to this senior writer from multiple admissions to the psychiatric inpatient unit, this time patient was admitted on the medical side for alcohol withdrawal symptoms then transferred to psych inpatient unit but patient developed delirium tremens was transferred to ICU unit was intubated, at present moment patient has a tracheotomy and PEG placed. patient was seen and examined, discussed with the nursing staff. Patient was not able to participate in interview, not able to follow command, lethargic, sedated. As per nursing staff reported, patient has episodes of diaphoresis and shakiness prior to scheduled dose of Ativan IV push. approximately pt gets ~24mg of ativan a day. This senior writer had phone conversation with ICU attending Dr. Thakkar, treatment plan was discussed in details meds reviewed. pt tolerated meds well, had BM. Temp Pulse Resp BP Pulse Ox 99.9 F H 85 22 141/77 97 12/12/17 16:00 12/12/17 16:00 12/12/17 04:00 12/12/17 16:00 12/12/17 16:00 Laboratory Results - last 24 hr 12/07/17 12/11/17 12/11/17 06:50 17:50 20:58 WBC RBC Hgb Hct MCV MCH MCHC RDW Plt Count MPV Gran % Lymph % (Auto) [place] % (Auto) Eos % (Auto) Baso % (Auto) Gran # Lymph # (Auto) [place] # (Auto) Eos # (Auto) Baso # (Auto) Haptoglobin 203 Sodium Potassium Chloride Carbon Dioxide Anion Gap BUN Creatinine Est GFR ( Amer) Est GFR (Non-Af Amer) POC Glucose (mg/dL) 88 95 Random Glucose Calcium Phosphorus Magnesium Total Bilirubin 0.3 AST ALT 48 H Alkaline Phosphatase Liver Fibrosis Score 0.17 Liver Fibrosis Interp See note Liver Fibrosis Comment See note Liver Fibrosis Stage F0 Necroinflammator Score 0.24 Necroinflam Score Cmmt See note Necroinflammator Grade A0-a1 Total Protein Albumin Globulin Albumin/Globulin Ratio Agxio-5-[id number] 110 Apolipoprotein A-1 63 L Ref Lab Specimen ID [id number] 12/12/17 12/12/17 12/12/17 04:19 06:15 06:15 WBC 7.6 RBC 3.73 Hgb 11.1 L Hct 33.8 L MCV 90.6 MCH 29.8 MCHC 32.8 RDW 13.7 Plt Count 440 MPV 9.9 Gran % 76.5 H Lymph % (Auto) 12.8 L [place] % (Auto) 8.9 H Eos % (Auto) 1.5 Baso % (Auto) 0.3 Gran # 5.79 Lymph # (Auto) 1.0 L [place] # (Auto) 0.7 H Eos # (Auto) 0.1 Baso # (Auto) 0.02 Haptoglobin Sodium 144 Potassium 4.0 Chloride 106 Carbon Dioxide 30 Anion Gap 13 BUN 8 Creatinine 0.7 L Est GFR ( Amer) > 60 Est GFR (Non-Af Amer) > 60 POC Glucose (mg/dL) 114 H Random Glucose 117 H Calcium 8.7 Phosphorus 3.3 Magnesium 2.3 H Total Bilirubin 0.6 AST 47 ALT 67 H Alkaline Phosphatase 71 Liver Fibrosis Score Liver Fibrosis Interp Liver Fibrosis Comment Liver Fibrosis Stage Necroinflammator Score Necroinflam Score Cmmt Necroinflammator Grade Total Protein 5.5 L Albumin 2.9 L Globulin 2.6 Albumin/Globulin Ratio 1.1 Ltejv-6-[id number] Apolipoprotein A-1 Ref Lab Specimen ID 12/12/17 12/12/17 08:55 14:47 WBC RBC Hgb Hct MCV MCH MCHC RDW Plt Count MPV Gran % Lymph % (Auto) [place] % (Auto) Eos % (Auto) Baso % (Auto) Gran # Lymph # (Auto) [place] # (Auto) Eos # (Auto) Baso # (Auto) Haptoglobin Sodium Potassium Chloride Carbon Dioxide Anion Gap BUN Creatinine Est GFR ( Amer) Est GFR (Non-Af Amer) POC Glucose (mg/dL) 106 106 Random Glucose Calcium Phosphorus Magnesium Total Bilirubin AST ALT Alkaline Phosphatase Liver Fibrosis Score Liver Fibrosis Interp Liver Fibrosis Comment Liver Fibrosis Stage Necroinflammator Score Necroinflam Score Cmmt Necroinflammator Grade Total Protein Albumin Globulin Albumin/Globulin Ratio Egdyq-5-Sjmbyspzireyg Apolipoprotein A-1 Ref Lab Specimen ID as per Neurology pt was started on keppra and depakote. MSE: unable to assess, pt lethargic, sedated. Impression: delirium due to multiple medical problems, DT Plan: d/c seroquel d/c IV push of ativan PEG ativan 4mg q4hrs scheduled for alcohol withdrawals Ativan PRN IVP 2mg q4hrs prn (only if pt has alcohol withdrawal symptoms) monitor vital signs PLAN TO TAPER DOWN ATIVAN 10-15% A DAY DEPENDS HOW PT TOLERATES d/c Librium (will chose one benzo Ativan with the plan to wean it off, it will be easier to calculate exact amount of mg given to the pt) agree with chikis and ondina AVOID ANTIPSYCHOTICS AND SSRI the rest is up to the medical team no need for psychiatry to follow up over the weekend will f/u on pt on Friday case was d/w and
--- NOTE | 2017-12-12 22:30 | CARD ---
APPROVED REPORT EKG Measurement Heart [id number] <Conclusion> Sinus rhythm with premature supraventricular complexes Otherwise normal ECG
[2017-12-13] MEDS: Insulin Lispro (humaLOG) LOW Coverage SC SCH ×2 (03:00→09:04)
[2017-12-13] MEDS: Meropenem 500 MG in Sodium Chloride 0.9% 100 ML IVPB SCH ×2 (05:15→13:56)
[2017-12-13 06:29] LABS: BASO # 0.01 K/mm3 (0.0-2.0); BASO % 0.1 % (0.0-3.0); EOS # 0.1 (0.0-0.7); EOS % 1.4 % (1.5-5.0); GRAN # 6.51 (1.4-6.5); GRAN % 82.7 % (50.0-68.0); HEMOGLOBIN 10.3 g/dL (14.0-18.0); LYMPH # 0.8 (1.2-3.4); LYMPH % 10.2 % (22.0-35.0); MEAN CELL VOLUME 89.9 fl (80.0-105.0); MEAN CORPUSCULAR HEMOGLOBIN 29.8 pg (25.0-35.0); MEAN CORPUSCULAR HGB CONC 33.1 g/dl (31.0-37.0); MEAN PLATELET VOLUME 9.3 fl (7.0-11.0); MONO # 0.4 (0.1-0.6); MONO % 5.6 % (1.0-6.0); RBC 3.46 10^6/uL (3.5-6.1); RED CELL DISTRIBUTION WIDTH 13.8 % (11.5-14.5); WHITE BLOOD COUNT 7.9 10^3/ul (4.5-11.0)
[2017-12-13 07:00] LABS: BLOOD UREA NITROGEN 7 mg/dL (7-21); GFR AFRICAN-AMERICAN > 60; GFR NON-AFRICAN AMERICAN > 60
[2017-12-13 07:01] LABS: ALB/GLOB RATIO 1.1 (1.1-1.8); ALBUMIN 2.6 g/dL (3.0-4.8); ALT/SGPT 59 U/L (7-56); AST/SGOT 30 U/L (17-59); CALCIUM 8.4 mg/dL (8.4-10.5)
[2017-12-13] MEDS: Multivitamin With Minerals Tab PO SCH (07:32)
--- NOTE | 2017-12-13 07:37 | CP.CCUPN ---
<Singh Traore - Last Filed: 12/13/17 08:29> CCU Subjective - Physician Review Subjective (Free Text): Singh Traore PGY1 ICU Note for Dr. Velez Patient was seen and examined in ICU. The patient remains off sedation and is currently being managed on benzodiazepenes. The patient is not agitated and in no acute distress. No acute overnight events. Patient is s/p tracheostomy and PEG tube placement. ROS was limited due to persistent AMS. Patient failed pressure support trial this morning and required to be placed back on PRVC. CCU Objective - Vital Signs / Intake & Output Vital Signs (Last 4 hours): Vital Signs Temp Pulse BP Pulse Ox 12/13/17 05:52 84 12/13/17 05:00 100 H 131/77 12/13/17 04:33 115 H 150/95 H 95 12/13/17 04:06 102 H 167/99 H 12/13/17 04:00 99.4 F 106 H 167/99 H 97 Intake and Output (Last 8hrs): Intake & Output 12/12/17 12/13/17 12/13/17 22:59 06:59 14:59 Intake Total 1850 2150 Output Total 2875 2100 Balance -1025 50 Weight 176 lb Intake: IV 350 450 IVPB 350 450 Tube Feeding 600 500 Other 900 1200 Output: Urine 2875 2100 Urethral (Mackenzie) 2875 2100 Other: # Bowel Movements 2 2 - Physical Exam Physical Exam Limitations: Positive for: Altered Mental Status Head: Positive for: Atraumatic, Normocephalic Pupils: Positive for: PERRL, Sluggish Conjunctiva: Positive for: Normal. Negative for: Injected Neck: Positive for: Other (s/p tracheostomy). Negative for: JVD Respiratory/Chest: Positive for: Clear to Auscultation, Good Air Exchange, Other (on vent). Negative for: Respiratory Distress, Accessory Muscle Use, Wheezes, Rales, Retracting, Rhonchi, Tachypneic Cardiovascular: Positive for: Regular Rate and Rhythm, Normal S1, S2. Negative for: Murmurs Abdomen: Positive for: Normal Bowel Sounds, Feeding Tubes, Ostomy Tubes (PEG tube ). Negative for: Tenderness, Distention, Peritoneal Signs, Rebound, Guarding Genitourinary Male: Positive for: Other (mackenzie catheter in place ) Back: Positive for: Normal Inspection. Negative for: Midline Tenderness Upper Extremity: Positive for: Normal Inspection, NORMAL PULSES, Other (resting right arm tremor, rigidity noted). Negative for: Cyanosis, Edema Lower Extremity: Positive for: Normal Inspection, NORMAL PULSES. Negative for: Edema Neurological: Negative for: GCS=15 Skin: Positive for: Warm, Normal Color Psychiatric: Negative for: Alert, Oriented x 3, Normal Insight, Normal Concentration - Medications Active Medications: Active Medications Generic Name Dose Route Start Last Admin Trade Name Freq PRN Reason Stop Dose Admin Acetaminophen 650 mg 12/05/17 12:27 Tylenol 650 Mg Supp RC Q6H PRN Fever >100.4 F Ascorbic Acid 500 mg 11/28/17 11:30 12/12/17 09:14 Vitamin C 500 Mg Tab PO 500 mg DAILY SHIV Administration Bacitracin 1 ea 11/28/17 08:51 11/28/17 09:34 Bacitracin TOP 1 ea Q6 PRN Administration Swelling Clonidine HCl 0.2 mg 12/12/17 10:00 12/12/17 18:34 Catapres PO 0.2 mg BID SHIV Administration Cyproheptadine HCl 4 mg 12/05/17 11:15 12/13/17 03:05 Periactin PO 4 mg Q8H SHIV Administration Docusate Sodium 100 mg 12/05/17 18:00 12/12/17 18:16 Colace Liquid PO Not Given BID SHIV Folic Acid 1 mg 12/01/17 10:15 12/12/17 09:12 Folic Acid PO 1 mg DAILY SHIV Administration Heparin Sodium (Porcine) 5,000 units 12/03/17 08:15 12/13/17 05:14 Heparin SC 5,000 units Q8 SHIV Administration Protocol Hydralazine HCl 10 mg 11/29/17 14:56 12/13/17 04:06 Apresoline IVP 10 mg Q6 PRN Administration give if SBP >160 Meropenem 500 mg/ Sodium 100 mls @ 100 mls/hr 12/04/17 22:00 12/13/17 05:15 Chloride IVPB 100 mls/hr Q8 SHIV Administration Protocol Vancomycin HCl 1 gm in 250 mls @ 166.667 mls/hr 12/08/17 10:26 12/12/17 21:34 Vancomycin 1gm IVPB 166.667 mls/hr Q12H SHIV Administration Protocol Insulin Human Lispro 0 units 11/26/17 09:00 12/13/17 03:00 Humalog Low SC Not Given Q6H SHIV Protocol Levalbuterol HCl 0.63 mg 12/02/17 09:55 12/12/17 07:13 Xopenex IH 0.63 mg [id number] PRN Administration Shortness of Breath Levetiracetam 750 mg 12/04/17 22:00 12/12/17 22:00 Keppra PO 750 mg Q12 SHIV Administration Lorazepam 2 mg 12/12/17 16:57 12/13/17 00:41 Ativan IVP 2 mg Q4H PRN Administration alcohol withdrawals Protocol Lorazepam 4 mg 12/12/17 17:00 12/13/17 05:20 Ativan PEG 4 mg Q4H SHIV Administration Protocol Multivitamins/Minerals 1 tab 11/29/17 08:00 12/12/17 08:07 Therapeutic-M Tab PO 1 tab 0800 SHIV Administration Pantoprazole Sodium 40 mg 11/22/17 10:00 12/12/17 09:13 Protonix Inj IVP 40 mg DAILY SHIV Administration Polyethylene Glycol 17 gm 12/05/17 18:00 12/12/17 18:16 Miralax PO Not Given BID SHIV Propranolol HCl 40 mg 12/05/17 11:00 12/12/17 18:27 Inderal PO 40 mg BID SHIV Administration Thiamine HCl 100 mg 11/28/17 14:00 12/12/17 18:33 Vitamin B1 Tab PO 100 mg TID SHIV Administration Tobramycin Sulfate 0.08 gm 12/05/17 11:00 12/12/17 21:20 Tobramycin Inj IH 0.08 gm [id number] SHIV Administration Valproate Sodium 750 mg 12/09/17 22:00 12/12/17 22:00 Depakene Oral Soln PO 750 mg Q12 SHIV Administration - Patient Studies Lab Studies: Lab Studies 12/13/17 12/13/17 12/13/17 Range/Units 06:20 06:20 04:24 WBC 7.9 (4.5-11.0) 10^3/ul RBC 3.46 L (3.5-6.1) 10^6/uL Hgb 10.3 L (14.0-18.0) g/dL Hct 31.1 L (42.0-52.0) % MCV 89.9 (80.0-105.0) fl MCH 29.8 (25.0-35.0) pg MCHC 33.1 (31.0-37.0) g/dl RDW 13.8 (11.5-14.5) % Plt Count 368 (120.0-450.0) 10^3/uL MPV 9.3 (7.0-11.0) fl Gran % 82.7 H (50.0-68.0) % Lymph % (Auto) 10.2 L (22.0-35.0) % Coleman % (Auto) 5.6 (1.0-6.0) % Eos % (Auto) 1.4 L (1.5-5.0) % Baso % (Auto) 0.1 (0.0-3.0) % Gran # 6.51 H (1.4-6.5) Lymph # (Auto) 0.8 L (1.2-3.4) Coleman # (Auto) 0.4 (0.1-0.6) Eos # (Auto) 0.1 (0.0-0.7) Baso # (Auto) 0.01 (0.0-2.0) K/mm3 Sodium 143 (132-148) mmol/L Potassium 3.7 (3.6-5.0) mmol/L Chloride 106 (98-107) mmol/L Carbon Dioxide 29 (21-33) mmol/L Anion Gap 12 (10-20) BUN 7 (7-21) mg/dL Creatinine 0.6 L (0.8-1.5) mg/dl Est GFR ( Amer) > 60 Est GFR (Non-Af Amer) > 60 POC Glucose (mg/dL) 111 H (65-110) mg/dL Random Glucose 112 H (70-110) mg/dL Calcium 8.4 (8.4-10.5) mg/dL Total Bilirubin 0.5 (0.2-1.3) mg/dL AST 30 (17-59) U/L ALT 59 H (7-56) U/L Alkaline Phosphatase 57 (38-126) U/L Total Protein 5.0 L (5.8-8.3) g/dL Albumin 2.6 L (3.0-4.8) g/dL Globulin 2.3 gm/dL Albumin/Globulin Ratio 1.1 (1.1-1.8) 12/13/17 12/12/17 12/12/17 Range/Units 00:30 20:35 14:47 WBC (4.5-11.0) 10^3/ul RBC (3.5-6.1) 10^6/uL Hgb (14.0-18.0) g/dL Hct (42.0-52.0) % MCV (80.0-105.0) fl MCH (25.0-35.0) pg MCHC (31.0-37.0) g/dl RDW (11.5-14.5) % Plt Count (120.0-450.0) 10^3/uL MPV (7.0-11.0) fl Gran % (50.0-68.0) % Lymph % (Auto) (22.0-35.0) % Coleman % (Auto) (1.0-6.0) % Eos % (Auto) (1.5-5.0) % Baso % (Auto) (0.0-3.0) % Gran # (1.4-6.5) Lymph # (Auto) (1.2-3.4) Coleman # (Auto) (0.1-0.6) Eos # (Auto) (0.0-0.7) Baso # (Auto) (0.0-2.0) K/mm3 Sodium (132-148) mmol/L Potassium (3.6-5.0) mmol/L Chloride (98-107) mmol/L Carbon Dioxide (21-33) mmol/L Anion Gap (10-20) BUN (7-21) mg/dL Creatinine (0.8-1.5) mg/dl Est GFR ( Amer) Est GFR (Non-Af Amer) POC Glucose (mg/dL) 106 113 H 106 (65-110) mg/dL Random Glucose (70-110) mg/dL Calcium (8.4-10.5) mg/dL Total Bilirubin (0.2-1.3) mg/dL AST (17-59) U/L ALT (7-56) U/L Alkaline Phosphatase (38-126) U/L Total Protein (5.8-8.3) g/dL Albumin (3.0-4.8) g/dL Globulin gm/dL Albumin/Globulin Ratio (1.1-1.8) 12/12/17 Range/Units 08:55 WBC (4.5-11.0) 10^3/ul RBC (3.5-6.1) 10^6/uL Hgb (14.0-18.0) g/dL Hct (42.0-52.0) % MCV (80.0-105.0) fl MCH (25.0-35.0) pg MCHC (31.0-37.0) g/dl RDW (11.5-14.5) % Plt Count (120.0-450.0) 10^3/uL MPV (7.0-11.0) fl Gran % (50.0-68.0) % Lymph % (Auto) (22.0-35.0) % Coleman % (Auto) (1.0-6.0) % Eos % (Auto) (1.5-5.0) % Baso % (Auto) (0.0-3.0) % Gran # (1.4-6.5) Lymph # (Auto) (1.2-3.4) Coleman # (Auto) (0.1-0.6) Eos # (Auto) (0.0-0.7) Baso # (Auto) (0.0-2.0) K/mm3 Sodium (132-148) mmol/L Potassium (3.6-5.0) mmol/L Chloride (98-107) mmol/L Carbon Dioxide (21-33) mmol/L Anion Gap (10-20) BUN (7-21) mg/dL Creatinine (0.8-1.5) mg/dl Est GFR ( Amer) Est GFR (Non-Af Amer) POC Glucose (mg/dL) 106 (65-110) mg/dL Random Glucose (70-110) mg/dL Calcium (8.4-10.5) mg/dL Total Bilirubin (0.2-1.3) mg/dL AST (17-59) U/L ALT (7-56) U/L Alkaline Phosphatase (38-126) U/L Total Protein (5.8-8.3) g/dL Albumin (3.0-4.8) g/dL Globulin gm/dL Albumin/Globulin Ratio (1.1-1.8) Laboratory Results - last 24 hr 12/12/17 12/12/17 12/12/17 08:55 14:47 20:35 WBC RBC Hgb Hct MCV MCH MCHC RDW Plt Count MPV Gran % Lymph % (Auto) Coleman % (Auto) Eos % (Auto) Baso % (Auto) Gran # Lymph # (Auto) Coleman # (Auto) Eos # (Auto) Baso # (Auto) Sodium Potassium Chloride Carbon Dioxide Anion Gap BUN Creatinine Est GFR ( Amer) Est GFR (Non-Af Amer) POC Glucose (mg/dL) 106 106 113 H Random Glucose Calcium Total Bilirubin AST ALT Alkaline Phosphatase Total Protein Albumin Globulin Albumin/Globulin Ratio 12/13/17 12/13/17 12/13/17 00:30 04:24 06:20 WBC 7.9 RBC 3.46 L Hgb 10.3 L Hct 31.1 L MCV 89.9 MCH 29.8 MCHC 33.1 RDW 13.8 Plt Count 368 MPV 9.3 Gran % 82.7 H Lymph % (Auto) 10.2 L Coleman % (Auto) 5.6 Eos % (Auto) 1.4 L Baso % (Auto) 0.1 Gran # 6.51 H Lymph # (Auto) 0.8 L Coleman # (Auto) 0.4 Eos # (Auto) 0.1 Baso # (Auto) 0.01 Sodium Potassium Chloride Carbon Dioxide Anion Gap BUN Creatinine Est GFR ( Amer) Est GFR (Non-Af Amer) POC Glucose (mg/dL) 106 111 H Random Glucose Calcium Total Bilirubin AST ALT Alkaline Phosphatase Total Protein Albumin Globulin Albumin/Globulin Ratio 12/13/17 06:20 WBC RBC Hgb Hct MCV MCH MCHC RDW Plt Count MPV Gran % Lymph % (Auto) Coleman % (Auto) Eos % (Auto) Baso % (Auto) Gran # Lymph # (Auto) Coleman # (Auto) Eos # (Auto) Baso # (Auto) Sodium 143 Potassium 3.7 Chloride 106 Carbon Dioxide 29 Anion Gap 12 BUN 7 Creatinine 0.6 L Est GFR ( Amer) > 60 Est GFR (Non-Af Amer) > 60 POC Glucose (mg/dL) Random Glucose 112 H Calcium 8.4 Total Bilirubin 0.5 AST 30 ALT 59 H Alkaline Phosphatase 57 Total Protein 5.0 L Albumin 2.6 L Globulin 2.3 Albumin/Globulin Ratio 1.1 Fingerstick Blood Sugar Results: 111 Review of Systems - Review of Systems Systems not reviewed;Unavailable: Altered Mental Status Critical Care Progress Note - Ventilator Checklist Head of Bed 30 Degrees: Yes Daily Sedation Vacation: Yes Daily Assessment of Readiness to Wean: Yes Daily Spontaneous Breathing Trial: Yes PUD Prophalyxis: Yes DVT Prophylaxis: Yes Oral Care with Chlorhexidine Gluconate {CHG}: Yes - Vent Settings MODE:: PRVC - Extremities/Vascular Does the Patient have a Central Venous Catheter?: Yes (RUE PICC ) Does the Patient need a Central Venous Catheter?: Yes Does the Patient have a Mackenzie Catheter?: Yes Does the Patient need a Mackenzie Catheter?: Yes - Restraints Justification for Restraints: High risk for self extubation, High risk for removing IV access, High risk for harming self - Prophylaxis GI Prophylaxis GI: PPI - Prophylaxis DVT Prophylaxis DVT: Heparin SQ, SCDs Assessment/Plan - Assessment and Plan (Free Text) Assessment: 62yo M with PMHx of Bipolar disorder and ETOH abuse in ICU for DTs 2/2 ETOH withdrawal and inability to wean off vent. Patient initially admitted to psych for suicidal ideation then transferred to in-patient due to severe ETOH withdrawal with DTs requiring high-dose sedation and intubation. Rhabdomyolysis was also noted, but has resolved. CXR showed RLL consolidation, and patient has been on antibiotics to cover respiratory infections including sinusitis seen on imaging. s/p Trach and PEG tube. Patient has failed his second pressure support trial this morning and required to be placed back on PRVC. Patient is off sedation. Plan: Neuro: - off sedation - Librium d/c - Ativan SHIV and PRN per Psych's recommendations - cont Clonidine - will cont on Propranolol and Cyprohepatadine for tremor, monitor for changes - continue thiamine, folic acid and multivitamin supplements - Neuro consulted- recs appreciated - 2 EEG's have been unremarkable so far; repeat EEG yesterday pending read - MRI brain showed persistent b/l maxially, ethomoid and sphoenoid sinusitis w/ mastoid effusions - Keppra 750mg BID and Depakote 750mg BID for seizure precautions; neuro managing changes - Continue CIWA protocol, seizure precaution, aspiration precaution Cardio: - HD stable - Maintain MAP> 65mmHg - Hydralazine PRN for BP control - Propranolol started scheduled - continue IVF Pulm: - s/p tracheostomy by ENT team - Patient failed pressure support trial this morning (his second trial) and required to be placed back on PRVC - Protective lung ventilation strategy, HOB elevated, daily oral care, and aspiration precautions, DVT and GI ppx, as well as daily attempts to wean off vent - CXR shows no active disease - Xopenex PRN - Patient has completed 8 day course of Meropenem and Vancomycin as well as tobramycin inhaled for sinusitis and possible RLL pneumonia - Maintain spO2>90% GI: - cont PEG tube feeds - Thiamine, Folic acid, and MV for ETOH withdrawal and DTs - PPI for GI ppx - s/p PEG by GI team Heme: - Hgb stable - platelets stable - monitor H/H daily Nephro: - Will continue to monitor electrolytes and replace as needed - Continue to monitor I&O ID: - Fevers likely 2/2 withdrawals; blood cultures and UA negative so far; - has completed 8 days of Meropenem, Vancomycin and Tobramycin inhaled for sinusitis and HCAP; will discuss with ID about deescalating or discontinuing antibiotics today - Bacitracin, Zinc, MV and vit C for skin - ID consulted- recs appreciated - PICC line in place Psych: - Hx of Bipolar - Psych consulted- recs appreciated - will evaluate once off of sedation - Consent for trach and PICC line obtained by Dr. Velez on 12/05 with family members over phone; consent for PEG obtained by GI team GI ppx: Protonix DVT ppx: Heparin SC and SCDs Diet: Tube feeds per PEG tube Dispo: Plan for LTAC per SW. Patient is off sedation but failed pressure support trial on trach this morning; will attempt to wean daily. Patient was seen, examined, and discussed with attending, Dr. Agustin Traore PGY1 Pager [phone] <Mike Velez - Last Filed: 12/13/17 14:38> CCU Objective - Vital Signs / Intake & Output Vital Signs (Last 4 hours): Vital Signs Temp Pulse BP Pulse Ox 12/13/17 14:00 90 149/83 100 12/13/17 13:00 78 125/65 100 12/13/17 12:00 97.9 F 82 133/75 100 12/13/17 11:58 82 12/13/17 11:54 81 12/13/17 11:00 93 H 149/87 100 Intake and Output (Last 8hrs): Intake & Output 12/12/17 12/13/17 12/13/17 22:59 06:59 14:59 Intake Total 1850 2150 Output Total 2875 2100 Balance -1025 50 Weight 176 lb 176 lb Intake: IV 350 450 IVPB 350 450 Tube Feeding 600 500 Other 900 1200 Output: Urine 2875 2100 Urethral (Mackenzie) 2875 2100 Other: # Bowel Movements 2 2 - Medications Active Medications: Active Medications Generic Name Dose Route Start Last Admin Trade Name Freq PRN Reason Stop Dose Admin Acetaminophen 650 mg 12/05/17 12:27 Tylenol 650 Mg Supp RC Q6H PRN Fever >100.4 F Ascorbic Acid 500 mg 11/28/17 11:30 12/13/17 09:01 Vitamin C 500 Mg Tab PO 500 mg DAILY SHIV Administration Bacitracin 1 ea 11/28/17 08:51 11/28/17 09:34 Bacitracin TOP 1 ea Q6 PRN Administration Swelling Clonidine HCl 0.2 mg 12/12/17 10:00 12/13/17 09:03 Catapres PO 0.2 mg BID SHIV Administration Cyproheptadine HCl 4 mg 12/05/17 11:15 12/13/17 12:22 Periactin PO 4 mg Q8H SHIV Administration Docusate Sodium 100 mg 12/05/17 18:00 12/13/17 09:03 Colace Liquid PO Not Given BID SHIV Folic Acid 1 mg 12/01/17 10:15 12/13/17 09:03 Folic Acid PO 1 mg DAILY SHIV Administration Heparin Sodium (Porcine) 5,000 units 12/13/17 22:00 Heparin SC Q12 [facility] Protocol Hydralazine HCl 10 mg 11/29/17 14:56 12/13/17 04:06 Apresoline IVP 10 mg Q6 PRN Administration give if SBP >160 Levalbuterol HCl 0.63 mg 12/02/17 09:55 12/13/17 14:02 Xopenex IH 0.63 mg [id number] PRN Administration Shortness of Breath Levetiracetam 750 mg 12/04/17 22:00 12/13/17 09:03 Keppra PO 750 mg Q12 SHIV Administration Lorazepam 2 mg 12/12/17 16:57 12/13/17 00:41 Ativan IVP 2 mg Q4H PRN Administration alcohol withdrawals Protocol Lorazepam 4 mg 12/12/17 17:00 12/13/17 12:26 Ativan PEG 4 mg Q4H SHIV Administration Protocol Multivitamins/Minerals 1 tab 11/29/17 08:00 12/13/17 07:32 Therapeutic-M Tab PO 1 tab 0800 SHIV Administration Pantoprazole Sodium 40 mg 11/22/17 10:00 12/13/17 09:01 Protonix Inj IVP 40 mg DAILY SHIV Administration Polyethylene Glycol 17 gm 12/05/17 18:00 12/13/17 09:04 Miralax PO Not Given BID SHIV Propranolol HCl 40 mg 12/05/17 11:00 12/13/17 09:01 Inderal PO 40 mg BID SHIV Administration Thiamine HCl 100 mg 11/28/17 14:00 12/13/17 13:56 Vitamin B1 Tab PO 100 mg TID SHIV Administration Tobramycin Sulfate 0.08 gm 12/05/17 11:00 12/13/17 07:41 Tobramycin Inj IH 0.08 gm [id number] SHIV Administration Valproate Sodium 750 mg 12/09/17 22:00 12/13/17 09:03 Depakene Oral Soln PO 750 mg Q12 SHIV Administration - Patient Studies Lab Studies: Lab Studies 12/13/17 12/13/17 12/13/17 Range/Units 06:20 06:20 04:24 WBC 7.9 (4.5-11.0) 10^3/ul RBC 3.46 L (3.5-6.1) 10^6/uL Hgb 10.3 L (14.0-18.0) g/dL Hct 31.1 L (42.0-52.0) % MCV 89.9 (80.0-105.0) fl MCH 29.8 (25.0-35.0) pg MCHC 33.1 (31.0-37.0) g/dl RDW 13.8 (11.5-14.5) % Plt Count 368 (120.0-450.0) 10^3/uL MPV 9.3 (7.0-11.0) fl Gran % 82.7 H (50.0-68.0) % Lymph % (Auto) 10.2 L (22.0-35.0) % Coleman % (Auto) 5.6 (1.0-6.0) % Eos % (Auto) 1.4 L (1.5-5.0) % Baso % (Auto) 0.1 (0.0-3.0) % Gran # 6.51 H (1.4-6.5) Lymph # (Auto) 0.8 L (1.2-3.4) Coleman # (Auto) 0.4 (0.1-0.6) Eos # (Auto) 0.1 (0.0-0.7) Baso # (Auto) 0.01 (0.0-2.0) K/mm3 Sodium 143 (132-148) mmol/L Potassium 3.7 (3.6-5.0) mmol/L Chloride 106 (98-107) mmol/L Carbon Dioxide 29 (21-33) mmol/L Anion Gap 12 (10-20) BUN 7 (7-21) mg/dL Creatinine 0.6 L (0.8-1.5) mg/dl Est GFR ( Amer) > 60 Est GFR (Non-Af Amer) > 60 POC Glucose (mg/dL) 111 H (65-110) mg/dL Random Glucose 112 H (70-110) mg/dL Calcium 8.4 (8.4-10.5) mg/dL Total Bilirubin 0.5 (0.2-1.3) mg/dL AST 30 (17-59) U/L ALT 59 H (7-56) U/L Alkaline Phosphatase 57 (38-126) U/L Total Protein 5.0 L (5.8-8.3) g/dL Albumin 2.6 L (3.0-4.8) g/dL Globulin 2.3 gm/dL Albumin/Globulin Ratio 1.1 (1.1-1.8) 12/13/17 12/12/17 12/12/17 Range/Units 00:30 20:35 14:47 WBC (4.5-11.0) 10^3/ul RBC (3.5-6.1) 10^6/uL Hgb (14.0-18.0) g/dL Hct (42.0-52.0) % MCV (80.0-105.0) fl MCH (25.0-35.0) pg MCHC (31.0-37.0) g/dl RDW (11.5-14.5) % Plt Count (120.0-450.0) 10^3/uL MPV (7.0-11.0) fl Gran % (50.0-68.0) % Lymph % (Auto) (22.0-35.0) % Coleman % (Auto) (1.0-6.0) % Eos % (Auto) (1.5-5.0) % Baso % (Auto) (0.0-3.0) % Gran # (1.4-6.5) Lymph # (Auto) (1.2-3.4) Coleman # (Auto) (0.1-0.6) Eos # (Auto) (0.0-0.7) Baso # (Auto) (0.0-2.0) K/mm3 Sodium (132-148) mmol/L Potassium (3.6-5.0) mmol/L Chloride (98-107) mmol/L Carbon Dioxide (21-33) mmol/L Anion Gap (10-20) BUN (7-21) mg/dL Creatinine (0.8-1.5) mg/dl Est GFR ( Amer) Est GFR (Non-Af Amer) POC Glucose (mg/dL) 106 113 H 106 (65-110) mg/dL Random Glucose (70-110) mg/dL Calcium (8.4-10.5) mg/dL Total Bilirubin (0.2-1.3) mg/dL AST (17-59) U/L ALT (7-56) U/L Alkaline Phosphatase (38-126) U/L Total Protein (5.8-8.3) g/dL Albumin (3.0-4.8) g/dL Globulin gm/dL Albumin/Globulin Ratio (1.1-1.8) Laboratory Results - last 24 hr 12/12/17 12/12/17 12/13/17 14:47 20:35 00:30 WBC RBC Hgb Hct MCV MCH MCHC RDW Plt Count MPV Gran % Lymph % (Auto) Coleman % (Auto) Eos % (Auto) Baso % (Auto) Gran # Lymph # (Auto) Coleman # (Auto) Eos # (Auto) Baso # (Auto) Sodium Potassium Chloride Carbon Dioxide Anion Gap BUN Creatinine Est GFR ( Amer) Est GFR (Non-Af Amer) POC Glucose (mg/dL) 106 113 H 106 Random Glucose Calcium Total Bilirubin AST ALT Alkaline Phosphatase Total Protein Albumin Globulin Albumin/Globulin Ratio 12/13/17 12/13/17 12/13/17 04:24 06:20 06:20 WBC 7.9 RBC 3.46 L Hgb 10.3 L Hct 31.1 L MCV 89.9 MCH 29.8 MCHC 33.1 RDW 13.8 Plt Count 368 MPV 9.3 Gran % 82.7 H Lymph % (Auto) 10.2 L Coleman % (Auto) 5.6 Eos % (Auto) 1.4 L Baso % (Auto) 0.1 Gran # 6.51 H Lymph # (Auto) 0.8 L Coleman # (Auto) 0.4 Eos # (Auto) 0.1 Baso # (Auto) 0.01 Sodium 143 Potassium 3.7 Chloride 106 Carbon Dioxide 29 Anion Gap 12 BUN 7 Creatinine 0.6 L Est GFR ( Amer) > 60 Est GFR (Non-Af Amer) > 60 POC Glucose (mg/dL) 111 H Random Glucose 112 H Calcium 8.4 Total Bilirubin 0.5 AST 30 ALT 59 H Alkaline Phosphatase 57 Total Protein 5.0 L Albumin 2.6 L Globulin 2.3 Albumin/Globulin Ratio 1.1 Attending/Attestation - Attestation I have personally seen and examined this patient.: Yes I have fully participated in the care of the patient.: Yes I have reviewed all pertinent clinical information: Yes Notes (Text): 12/13/17 14:31 62 yo male with VDRF. sedation drip is off on IV and PO BZD, failed PST/SBT today again. (RSB>115, tachypnic and tachycardic, AMS during PST. Completed 8 day course abx. afebrile, no wbc-osis, cxr-clear. daily weaning trials, sedation vacations, protective lung vent strategy, conservative fluid and 02 management. dvt/gi prophylaxis. VAP bundle. ccm time 40 min
[2017-12-13] MEDS: Tobramycin 1.2 gm Inj IH SCH ×2 (07:41→20:04)
--- NOTE | 2017-12-13 09:00 | RAD ---
HISTORY: ICU eval COMPARISON: 12/12/2017 FINDINGS: There is stable position of the tracheostomy tube. The right PICC line terminates in the right atrium. LUNGS: There is severe pulmonary venous congestion. PLEURA: There is a small right pleural effusion, no pneumothorax apparent. CARDIOVASCULAR: The cardiomediastinal silhouette is stable. OSSEOUS STRUCTURES: No significant abnormalities. VISUALIZED UPPER ABDOMEN: Normal. OTHER FINDINGS: None. IMPRESSION: Worsening pulmonary venous congestion. Small right pleural effusion. Stable position of tracheostomy tube and right PICC line.
[2017-12-13] MEDS: levETIRAcetam 500 mg/5ml UD cups PO SCH ×2 (09:03→21:26)
[2017-12-13] MEDS: Valproic Acid 250 mg/5 ml UD Cup PO SCH ×2 (09:03→21:25)
[2017-12-13] MEDS: POLYETHYLENE GLYCOL 3350 17 GM/Dose PACKET PO SCH ×2 (09:04→17:03)
[2017-12-13] MEDS: Vancomycin 1gm in NS 250ml 1 GM/250 ML BAG IVPB SCH (10:00)
--- NOTE | 2017-12-13 10:18 | CP.PCM.PN ---
<Sarkis Fuentes - Last Filed: 12/13/17 10:15> Subjective - Date & Time of Evaluation Date of Evaluation: 12/13/17 Time of Evaluation: 07:00 - Subjective Subjective: Medicine progress note for Dr. Chaparro Hospitalist Service Patient seen and examined at bedside. Patient remains is status post tracheostomy tube on 12/11/17. He remains off of sedative drips, but he is currently on benzodiazepines for agitation. Could not obtain ROS due to altered mental status. Objective - Vital Signs/Intake and Output Vital Signs (last 24 hours): Temp Pulse Resp BP Pulse Ox 98.3 F 126 H 18 154/92 H 100 12/13/17 07:56 12/13/17 09:03 12/13/17 07:40 12/13/17 09:03 12/13/17 07:40 Intake and Output: 12/13/17 12/13/17 06:59 18:59 Intake Total 2150 Output Total 2100 Balance 50 - Medications Medications: Current Medications Acetaminophen (Tylenol 650 Mg Supp) 650 mg RC Q6H PRN PRN Reason: Fever >100.4 F Ascorbic Acid (Vitamin C 500 Mg Tab) 500 mg PO DAILY [facility] Last Admin: 12/13/17 09:01 Dose: 500 mg Bacitracin (Bacitracin) 1 ea TOP Q6 PRN PRN Reason: Swelling Last Admin: 11/28/17 09:34 Dose: 1 ea Clonidine HCl (Catapres) 0.2 mg PO BID [facility] Last Admin: 12/13/17 09:03 Dose: 0.2 mg Cyproheptadine HCl (Periactin) 4 mg PO Q8H [facility] Last Admin: 12/13/17 03:05 Dose: 4 mg Docusate Sodium (Colace Liquid) 100 mg PO BID [facility] Last Admin: 12/13/17 09:03 Dose: Not Given Folic Acid (Folic Acid) 1 mg PO DAILY [facility] Last Admin: 12/13/17 09:03 Dose: 1 mg Heparin Sodium (Porcine) (Heparin) 5,000 units SC Q12 [facility] PRN Reason: Protocol Hydralazine HCl (Apresoline) 10 mg IVP Q6 PRN PRN Reason: give if SBP >160 Last Admin: 12/13/17 04:06 Dose: 10 mg Meropenem 500 mg/ Sodium (Chloride) 100 mls @ 100 mls/hr IVPB Q8 [facility]IV PRN Reason: Protocol Last Admin: 12/13/17 05:15 Dose: 100 mls/hr Vancomycin HCl (Vancomycin 1gm) 1 gm in 250 mls @ 166.667 mls/hr IVPB Q12H [facility] PRN Reason: Protocol Last Admin: 12/12/17 21:34 Dose: 166.667 mls/hr Levalbuterol HCl (Xopenex) 0.63 mg IH [id number] PRN PRN Reason: Shortness of Breath Last Admin: 12/12/17 07:13 Dose: 0.63 mg Levetiracetam (Keppra) 750 mg PO Q12 [facility] Last Admin: 12/13/17 09:03 Dose: 750 mg Lorazepam (Ativan) 2 mg IVP Q4H PRN; Protocol PRN Reason: alcohol withdrawals Last Admin: 12/13/17 00:41 Dose: 2 mg Lorazepam (Ativan) 4 mg PEG Q4H [facility]IV PRN Reason: Protocol Last Admin: 12/13/17 08:13 Dose: 4 mg Multivitamins/Minerals (Therapeutic-M Tab) 1 tab PO 0800 [facility] Last Admin: 12/13/17 07:32 Dose: 1 tab Pantoprazole Sodium (Protonix Inj) 40 mg IVP DAILY [facility] Last Admin: 12/13/17 09:01 Dose: 40 mg Polyethylene Glycol (Miralax) 17 gm PO BID [facility] Last Admin: 12/13/17 09:04 Dose: Not Given Propranolol HCl (Inderal) 40 mg PO BID [facility] Last Admin: 12/13/17 09:01 Dose: 40 mg Thiamine HCl (Vitamin B1 Tab) 100 mg PO TID [facility] Last Admin: 12/13/17 09:01 Dose: 100 mg Tobramycin Sulfate (Tobramycin Inj) 0.08 gm IH [id number] [facility] Last Admin: 12/13/17 07:41 Dose: 0.08 gm Valproate Sodium (Depakene Oral Soln) 750 mg PO Q12 [facility] Last Admin: 12/13/17 09:03 Dose: 750 mg - Labs Labs: 12/13/17 06:20 12/13/17 06:20 PT 15.4 SECONDS (9.4-12.5) H 12/10/17 07:00 INR 1.33 (0.93-1.08) H 12/10/17 07:00 - Constitutional Appears: Chronically Ill - Head Exam Head Exam: ATRAUMATIC, NORMOCEPHALIC - Eye Exam Pupil Exam: Mydriatic, PERRL - ENT Exam ENT Exam: Mucous Membranes Moist - Neck Exam Additional comments: Tracheostomy in place, dressing oozing with minor amount of drainage - Respiratory Exam Additional comments: Coarse breath sounds bilaterally. On ventilator support with settings 50% FiO2, PEEP 5, Tidal Volume 400, Respiratory rate 18 - Cardiovascular Exam Cardiovascular Exam: REGULAR RHYTHM, +S1, +S2 - GI/Abdominal Exam GI & Abdominal Exam: Soft, Normal Bowel Sounds. absent: Distended, Guarding, Tenderness Additional comments: PEG tube in place on left side of the abdomen. No obvious signs of infection from site of insertion - Exam Additional comments: mackenzie in place draining jc colored urine - Extremities Exam Additional comments: Right arm PICC line in place with no obvious signs of infection Upper and lower extremities with non-pitting edema Blisters on right hand - Neurological Exam Neurological Exam: Altered - Skin Skin Exam: Warm Assessment and Plan - Assessment and Plan (Free Text) Assessment: 62 year old male with PMHx of Bipolar disorder and ETOH abuse in ICU for DTs. Patient initially admitted to psych for suicidal ideation then transferred to in -patient due to severe ETOH withdrawal with DTs requiring high-dose sedation and intubation. Subclinical seizure noted on EEG performed on 11/30/17. Fevers likely due to DTs versus developing RLL consolidation and pleural effusion seen on CXR. Repeat EEG showing artifact likely from hand tremors. Patient's sister Bindu Ashton ([phone]) was able to get in touch with the critical care team and advocate for PEG placement, and she will be the healthcare proxy from this point forward. PEG placed on 12/09/17, and trach placed on 12/11/17. Patient failed weaning off of ventilation for two days now after his trach placement. Plan: 1. ETOH withdrawal with Delirium Tremens - Trached and on ventilator support. Vent settings as follows: 50% FiO2, PEEP 5 , Tidal Volume 400, Respiratory rate 18 - Neuro consulted- recs appreciated - Continue CIWA protocol, seizure precaution, aspiration precaution - Head CT negative for acute pathology - EEG with subclinical seizure seen; neurology recommends repeat EEG - IV Depakote and Keppra on board for seizure prophylaxis and mood stabilization - MRI brain showed persistent bilateral maxially, ethomoid and sphenoid sinusitis with mastoid effusions - Ativan 4 mg PEG SHIV and 2 mg IV Q4 prn 2. Altered Mental Status, currently being sedated for DT's - CT head was unremarkable - thiamine increased to protect against encephalopathy - EEG with subclinical seizure seen however repeat EEG does not show this. It shows artifact likely caused by patient's hand tremors. - Per neurology, agitation possibly manifestation of patient's psychiatric illnesses. Seroquel was started and mood stabilizers were increased in dosages. 3. Right lower lobe consolidations secondary to HCAP - Seen on CXR and worsening, with pleural effusion as well - Possible pneumonia with pleural effusion versus atelectasis - Treated with Merrem and Vancomycin 4. Sinusitis - seen on MRI - Continue to treat with Inhaled Tobramycin 5. Blisters on hands - Multivitamin, vit C and Zinc added - Bacitracin ointment to be applied 6. Rhabdomyolysis - likely secondary to DT's - renal function has not been affected - CPK markedly elevated but is now downtrending - will monitor 7. Fever, suspected due to pneumonia - Possibly secondary to ETOH withdrawals - ID consult, appreciate recs - Currently afebrile - Follow up septic workup - negative Lower Extremity ultrasound - no vegetations seen on echo -Remeron as a cause of suspected but unlikely serotonin syndrome; cyproheptadine and propranolol started 8. Electrolyte imbalance - monitor and replete as needed 9. Transaminitis Due to chronic alcohol abuse, will discuss alcohol cessation with patient once no longer sedated. 10. Prophylaxis - SCDs - Aspiration precautions - Seizure precautions - Heparin SC - Protonix Disposition: Patient with trach but requires ventilator support (Settings: 50% FiO2, PEEP 5, Tidal Volume 400, Respiratory rate 18). Right arm PICC line in place. Continue to attempt weaning off of ventilation support. Patient has failed weaning trial with CPAP off of the ventilator two times now since being trached. Follow up with case management team for discharge planning. Discussed and seen with Dr. Chaparro <Charlotte Chaparro - Last Filed: 12/14/17 11:05> Objective - Vital Signs/Intake and Output Vital Signs (last 24 hours): Temp Pulse Resp BP Pulse Ox 97.9 F 90 18 149/83 100 12/13/17 12:00 12/13/17 14:00 12/13/17 07:40 12/13/17 14:00 12/13/17 14:00 Intake and Output: 12/13/17 12/13/17 06:59 18:59 Intake Total 2150 Output Total 2100 Balance 50 - Medications Medications: Current Medications Acetaminophen (Tylenol 650 Mg Supp) 650 mg RC Q6H PRN PRN Reason: Fever >100.4 F Ascorbic Acid (Vitamin C 500 Mg Tab) 500 mg PO DAILY [facility] Last Admin: 12/13/17 09:01 Dose: 500 mg Bacitracin (Bacitracin) 1 ea TOP Q6 PRN PRN Reason: Swelling Last Admin: 11/28/17 09:34 Dose: 1 ea Clonidine HCl (Catapres) 0.2 mg PO BID [facility] Last Admin: 12/13/17 09:03 Dose: 0.2 mg Cyproheptadine HCl (Periactin) 4 mg PO Q8H [facility] Last Admin: 12/13/17 12:22 Dose: 4 mg Docusate Sodium (Colace Liquid) 100 mg PO BID [facility] Last Admin: 12/13/17 09:03 Dose: Not Given Folic Acid (Folic Acid) 1 mg PO DAILY [facility] Last Admin: 12/13/17 09:03 Dose: 1 mg Heparin Sodium (Porcine) (Heparin) 5,000 units SC Q12 [facility] PRN Reason: Protocol Hydralazine HCl (Apresoline) 10 mg IVP Q6 PRN PRN Reason: give if SBP >160 Last Admin: 12/13/17 04:06 Dose: 10 mg Levalbuterol HCl (Xopenex) 0.63 mg IH [id number] PRN PRN Reason: Shortness of Breath Last Admin: 12/13/17 14:02 Dose: 0.63 mg Levetiracetam (Keppra) 750 mg PO Q12 [facility] Last Admin: 12/13/17 09:03 Dose: 750 mg Lorazepam (Ativan) 2 mg IVP Q4H PRN; Protocol PRN Reason: alcohol withdrawals Last Admin: 12/13/17 00:41 Dose: 2 mg Lorazepam (Ativan) 4 mg PEG Q4H [facility] PRN Reason: Protocol Last Admin: 12/13/17 12:26 Dose: 4 mg Multivitamins/Minerals (Therapeutic-M Tab) 1 tab PO 0800 [facility] Last Admin: 12/13/17 07:32 Dose: 1 tab Pantoprazole Sodium (Protonix Inj) 40 mg IVP DAILY [facility] Last Admin: 12/13/17 09:01 Dose: 40 mg Polyethylene Glycol (Miralax) 17 gm PO BID [facility] Last Admin: 12/13/17 09:04 Dose: Not Given Propranolol HCl (Inderal) 40 mg PO BID [facility] Last Admin: 12/13/17 09:01 Dose: 40 mg Thiamine HCl (Vitamin B1 Tab) 100 mg PO TID [facility] Last Admin: 12/13/17 13:56 Dose: 100 mg Tobramycin Sulfate (Tobramycin Inj) 0.08 gm IH [id number] [facility] Last Admin: 12/13/17 07:41 Dose: 0.08 gm Valproate Sodium (Depakene Oral Soln) 750 mg PO Q12 [facility] Last Admin: 12/13/17 09:03 Dose: 750 mg - Labs Labs: 12/13/17 06:20 12/13/17 06:20 PT 15.4 SECONDS (9.4-12.5) H 12/10/17 07:00 INR 1.33 (0.93-1.08) H 12/10/17 07:00 Attending/Attestation - Attestation I have personally seen and examined this patient.: Yes I have fully participated in the care of the patient.: Yes I have reviewed all pertinent clinical information, including history, physical exam and plan: Yes Notes (Text): 12/13/17 14:36 attending note; Patient seen and examined with the resident in ICU. patient is a 62 year old male with history of bipolar disorder and chronic alcohol abuse is admitted for alcohol withdrawal and delirium tremens. s/p PEG placement and trach placement. not tolerating weaning trial. Patient is awake. Not following commands. Sedation is discontinued. Continue Ativan. Pneumonia; CXR reveals RLL consolidation. Patient is on Meropenem, vancomycin and tobramycin. UDS negative. Echo did not reveal any vegetation. will complete 7-[address] head was negative. Will continue Ativan. EEG revealed subclinical seizure on keppra. case discussed with social human services assistants in detail for discharge planning. Paperwork completed. patient requires LTAC placement. Monitor closely in ICU.
[2017-12-13] MEDS: Levalbuterol 0.63 MG/3 ML Inhal Soln UD IH PRN (14:02)
--- NOTE | 2017-12-13 16:17 | CP.PCM.PN ---
Subjective - Date & Time of Evaluation Date of Evaluation: 12/13/17 Time of Evaluation: 16:00 - Subjective Subjective: Infectious Disease Follow Up: December 13, 2017 62 yo male with medical history that includes Bipolar disorder and alcohol abuse presented with EtOH intoxication and now in withdrawals. Originally in the psych floor for bipolar disease treatment and suicidal ideation on 11/21/2017. The patient required intubation. ID initially called for possible aspiration pneumonia. No fevers, leukocytosis at this time. Remains intubated. Still no fevers or leukocytosis. Remains sedated. Noted blistered skin on right hand that slightly improved. Persistent fevers up to 102.0 F earlier in course of hospitalization but afebrile the last few days.. Still no leukocytosis. Cultures from 11/30/2017 negative. New cultures sent 12/01-. Multiple blisters on the right hand. Fluid filler and dark in color. Would obtain fluid from blisters for culture. Would consider CT of chest/ abdomen/pelvis. Continue on meropenem for antibiotic coverage at this point. Also on inhaled tobramycin and IV Zyvox. No new issues. Difficult extubation. Patient severely agitated when taken off sedation. Tremors present and more pronounced when off sedation. Currently afebrile but still with diaphoresis and tremors. Does not follow commands. Trach and PEG Mentally no improvement. Chest X-ray still with patchy infiltrate in right lung and atelectasis. Objective - Vital Signs/Intake and Output Vital Signs (last 24 hours): Temp Pulse Resp BP Pulse Ox 97.9 F 90 18 149/83 100 12/13/17 12:00 12/13/17 14:00 12/13/17 07:40 12/13/17 14:00 12/13/17 14:00 Intake and Output: 12/13/17 12/13/17 06:59 18:59 Intake Total 2150 Output Total 2100 Balance 50 - Medications Medications: Current Medications Acetaminophen (Tylenol 650 Mg Supp) 650 mg RC Q6H PRN PRN Reason: Fever >100.4 F Ascorbic Acid (Vitamin C 500 Mg Tab) 500 mg PO DAILY [facility] Last Admin: 12/13/17 09:01 Dose: 500 mg Bacitracin (Bacitracin) 1 ea TOP Q6 PRN PRN Reason: Swelling Last Admin: 11/28/17 09:34 Dose: 1 ea Clonidine HCl (Catapres) 0.2 mg PO BID [facility] Last Admin: 12/13/17 09:03 Dose: 0.2 mg Cyproheptadine HCl (Periactin) 4 mg PO Q8H [facility] Last Admin: 12/13/17 12:22 Dose: 4 mg Docusate Sodium (Colace Liquid) 100 mg PO BID [facility] Last Admin: 12/13/17 09:03 Dose: Not Given Folic Acid (Folic Acid) 1 mg PO DAILY [facility] Last Admin: 12/13/17 09:03 Dose: 1 mg Heparin Sodium (Porcine) (Heparin) 5,000 units SC Q12 [facility] PRN Reason: Protocol Hydralazine HCl (Apresoline) 10 mg IVP Q6 PRN PRN Reason: give if SBP >160 Last Admin: 12/13/17 04:06 Dose: 10 mg Levalbuterol HCl (Xopenex) 0.63 mg IH [id number] PRN PRN Reason: Shortness of Breath Last Admin: 12/13/17 14:02 Dose: 0.63 mg Levetiracetam (Keppra) 750 mg PO Q12 [facility] Last Admin: 12/13/17 09:03 Dose: 750 mg Lorazepam (Ativan) 2 mg IVP Q4H PRN; Protocol PRN Reason: alcohol withdrawals Last Admin: 12/13/17 00:41 Dose: 2 mg Lorazepam (Ativan) 4 mg PEG Q4H [facility] PRN Reason: Protocol Last Admin: 12/13/17 12:26 Dose: 4 mg Multivitamins/Minerals (Therapeutic-M Tab) 1 tab PO 0800 [facility] Last Admin: 12/13/17 07:32 Dose: 1 tab Pantoprazole Sodium (Protonix Inj) 40 mg IVP DAILY [facility] Last Admin: 12/13/17 09:01 Dose: 40 mg Polyethylene Glycol (Miralax) 17 gm PO BID [facility] Last Admin: 12/13/17 09:04 Dose: Not Given Propranolol HCl (Inderal) 40 mg PO BID [facility] Last Admin: 12/13/17 09:01 Dose: 40 mg Thiamine HCl (Vitamin B1 Tab) 100 mg PO TID [facility] Last Admin: 12/13/17 13:56 Dose: 100 mg Tobramycin Sulfate (Tobramycin Inj) 0.08 gm IH [id number] [facility] Last Admin: 12/13/17 07:41 Dose: 0.08 gm Valproate Sodium (Depakene Oral Soln) 750 mg PO Q12 [facility] Last Admin: 12/13/17 09:03 Dose: 750 mg - Labs Labs: 12/13/17 06:20 12/13/17 06:20 PT 15.4 SECONDS (9.4-12.5) H 12/10/17 07:00 INR 1.33 (0.93-1.08) H 12/10/17 07:00 - Constitutional Appears: Chronically Ill - Head Exam Additional comments: intubated and ventilated. - Eye Exam Eye Exam: EOMI, PERRL Pupil Exam: NORMAL ACCOMODATION, PERRL - ENT Exam ENT Exam: Mucous Membranes Moist, Normal External Ear Exam, TM's Normal Bilaterally - Neck Exam Neck Exam: Full ROM, Normal Inspection - Respiratory Exam Respiratory Exam: Clear to Ausculation Bilateral, NORMAL BREATHING PATTERN. absent: Rales, Rhonchi, Wheezes - Cardiovascular Exam Cardiovascular Exam: REGULAR RHYTHM, RRR, +S1, +S2 - GI/Abdominal Exam GI & Abdominal Exam: Soft, Normal Bowel Sounds. absent: Distended, Tenderness - Extremities Exam Extremities Exam: Joint Swelling, Pedal Edema - Neurological Exam Additional comments: poorly responsive and sedated. - Skin Additional comments: except Multiple blisters on the right hand. Fluid filler and dark in color. All the blisters are now burst. Assessment and Plan - Assessment and Plan (Free Text) Assessment: 62 yo male with EtOH abuse. Developed EtOH withdrawal and now required intubation and ventilation. The patient was being evaluated by ID for potential aspiration. The patient is currently on Cefepime and Vancomycin. If aspiration is a significant concern, would either add Flagyl IV or switch Cefepime to Meropenem or Zosyn. Febrile several days ago up to 102 F. Afebrile the last few days. No leukocytosis. No findings on Chest X-ray. Supportive care. Procalcitonin is 0.14 which is low. Noted procalcitonin repeated multiple times and all showing low values. Suggests strongly against bacterial causes but does not rule out viral. More likely secondary to the EtOH withdrawal and Delirium Tremens. Case discussed with team. Off antibiotics now. Will Monitor. Difficult extubation/wean from ventilation. Agitation when off sedation. Afebrile today but one temperature value showed hypothermia. Repeat cultures with next fever. Check urinalysis and urine culture. 11/30/2017 cultures negative so far. 12/01/2017 cultures with no specific growth. Afebrile the last few dates. Sputum cultures with yeast. Chest X-ray suggesting HCAP. Antibiotics continues on Zyvox and Meropenem. For now the patient has remained afebrile. Supportive care. No improvement mentally. Extremely agitated when sedation stopped. Of concern is that the temperatures today have been borderline feverish yesterday... more stable temperatures today. Trach and PEG done. Thank you for allowing me to participate in the care of the patient, we will follow with you.
[2017-12-14 05:31] LABS: BASO # 0.02 K/mm3 (0.0-2.0); BASO % 0.3 % (0.0-3.0); EOS # 0.2 (0.0-0.7); EOS % 2.5 % (1.5-5.0); GRAN # 5.73 (1.4-6.5); GRAN % 76.2 % (50.0-68.0); HEMOGLOBIN 10.9 g/dL (14.0-18.0); MEAN CELL VOLUME 90.2 fl (80.0-105.0); MEAN CORPUSCULAR HEMOGLOBIN 29.8 pg (25.0-35.0); MEAN PLATELET VOLUME 9.5 fl (7.0-11.0); MONO # 0.6 (0.1-0.6); RBC 3.66 10^6/uL (3.5-6.1); RED CELL DISTRIBUTION WIDTH 13.9 % (11.5-14.5); WHITE BLOOD COUNT 7.5 10^3/ul (4.5-11.0)
[2017-12-14 06:00] LABS: ALB/GLOB RATIO 1.1 (1.1-1.8); ALBUMIN 2.8 g/dL (3.0-4.8); ALT/SGPT 57 U/L (7-56); AST/SGOT 45 U/L (17-59); BLOOD UREA NITROGEN 9 mg/dL (7-21); CALCIUM 9.1 mg/dL (8.4-10.5); GFR AFRICAN-AMERICAN > 60; GFR NON-AFRICAN AMERICAN > 60
--- NOTE | 2017-12-14 06:24 | CP.PCM.PN ---
Subjective - Date & Time of Evaluation Date of Evaluation: 12/14/17 Time of Evaluation: 06:20 - Subjective Subjective: Mr. Koch was seen and examined at the bedside in ICU. He opens his eyes as a response to tactile stimuli. He remains on a trach connected to a mechanical ventilator. He is unable to follow commands with episode of restlessness. He is on ativan medication schedule and PRN. He moves his bilateral upper and lower extremities spontaneously. He has SCD for DVT prophylaxis.There was no untoward events overnight. Objective - Vital Signs/Intake and Output Vital Signs (last 24 hours): Temp Pulse Resp BP Pulse Ox 99.3 F 102 H 29 H 167/88 H 98 12/14/17 04:00 12/14/17 05:00 12/14/17 04:00 12/14/17 04:06 12/14/17 05:00 Intake and Output: 12/13/17 12/14/17 18:59 06:59 Intake Total 2200 Output Total 1715 Balance 485 - Medications Medications: Current Medications Acetaminophen (Tylenol 650 Mg Supp) 650 mg RC Q6H PRN PRN Reason: Fever >100.4 F Ascorbic Acid (Vitamin C 500 Mg Tab) 500 mg PO DAILY [facility] Last Admin: 12/13/17 09:01 Dose: 500 mg Bacitracin (Bacitracin) 1 ea TOP Q6 PRN PRN Reason: Swelling Last Admin: 11/28/17 09:34 Dose: 1 ea Clonidine HCl (Catapres) 0.2 mg PO BID [facility] Last Admin: 12/13/17 17:02 Dose: 0.2 mg Cyproheptadine HCl (Periactin) 4 mg PO Q8H [facility] Last Admin: 12/14/17 03:19 Dose: 4 mg Docusate Sodium (Colace Liquid) 100 mg PO BID [facility] Last Admin: 12/13/17 17:03 Dose: Not Given Folic Acid (Folic Acid) 1 mg PO DAILY [facility] Last Admin: 12/13/17 09:03 Dose: 1 mg Heparin Sodium (Porcine) (Heparin) 5,000 units SC Q12 [facility] PRN Reason: Protocol Last Admin: 12/13/17 21:26 Dose: 5,000 units Hydralazine HCl (Apresoline) 10 mg IVP Q6 PRN PRN Reason: give if SBP >160 Last Admin: 12/13/17 04:06 Dose: 10 mg Levalbuterol HCl (Xopenex) 0.63 mg IH [id number] PRN PRN Reason: Shortness of Breath Last Admin: 12/13/17 14:02 Dose: 0.63 mg Levetiracetam (Keppra) 750 mg PO Q12 [facility] Last Admin: 12/13/17 21:26 Dose: 750 mg Lorazepam (Ativan) 2 mg IVP Q4H PRN; Protocol PRN Reason: alcohol withdrawals Last Admin: 12/14/17 04:02 Dose: 2 mg Lorazepam (Ativan) 4 mg PEG Q4H [facility] PRN Reason: Protocol Last Admin: 12/14/17 05:11 Dose: 4 mg Multivitamins/Minerals (Therapeutic-M Tab) 1 tab PO 0800 [facility] Last Admin: 12/13/17 07:32 Dose: 1 tab Pantoprazole Sodium (Protonix Inj) 40 mg IVP DAILY [facility] Last Admin: 12/13/17 09:01 Dose: 40 mg Polyethylene Glycol (Miralax) 17 gm PO BID [facility] Last Admin: 12/13/17 17:03 Dose: Not Given Propranolol HCl (Inderal) 40 mg PO BID [facility] Last Admin: 12/13/17 17:01 Dose: 40 mg Thiamine HCl (Vitamin B1 Tab) 100 mg PO TID [facility] Last Admin: 12/13/17 17:02 Dose: 100 mg Tobramycin Sulfate (Tobramycin Inj) 0.08 gm IH [id number] [facility] Last Admin: 12/13/17 20:04 Dose: 0.08 gm Valproate Sodium (Depakene Oral Soln) 750 mg PO Q12 [facility] Last Admin: 12/13/17 21:25 Dose: 750 mg - Labs Labs: 12/14/17 05:20 12/14/17 05:20 PT 15.4 SECONDS (9.4-12.5) H 12/10/17 07:00 INR 1.33 (0.93-1.08) H 12/10/17 07:00 - Constitutional Appears: No Acute Distress - Head Exam Head Exam: NORMAL INSPECTION - Neurological Exam Neurological Exam: Awake Neuro motor strength exam: Left Upper Extremity: 3, Right Upper Extremity: 3, Left Lower Extremity: 3, Right Lower Extremity: 3 Additional comments: He is able to open his eyes spontaneously with tactile stimuli, unable to follow simple commands. Assessment and Plan (1) Seizure Assessment & Plan: Case discussed with Dr. Rosenberg, continue all current medical regimen. Pending EEG results and recommend valproic level monitoring. Status: Acute
[2017-12-14] MEDS: Tobramycin 1.2 gm Inj IH SCH (07:38)
--- NOTE | 2017-12-14 09:01 | RAD ---
HISTORY: ICU eval COMPARISON: 12/13/2017. FINDINGS: The tracheostomy tube is in stable position. The right PICC line terminates in the right atrium. LUNGS: The lungs are well inflated. There is interval development of diffuse haziness in the right lung. The left lung is clear. PLEURA: There is a small right pleural effusion, no pneumothorax apparent. CARDIOVASCULAR: Normal. OSSEOUS STRUCTURES: No significant abnormalities. VISUALIZED UPPER ABDOMEN: Normal. OTHER FINDINGS: None. IMPRESSION: Interval development of presumable alveolar pulmonary edema in the right lung and persistent small right pleural effusion. Stable position of tracheostomy tube and right PICC line.
--- NOTE | 2017-12-14 09:06 | CP.CCUPN ---
<Singh Traore - Last Filed: 12/14/17 10:06> CCU Subjective - Physician Review Subjective (Free Text): Singh Traore PGY1 ICU Note for Dr. Velez Patient was seen and examined in ICU. The patient remains off sedation and is currently being managed on Ativan SHIV and PRN. The patient is not agitated and in no acute distress. No acute overnight events. Patient is s/p tracheostomy and PEG tube placement. ROS was limited due to persistent AMS. Patient failed pressure support trial this morning and required to be placed back on PRVC due to high rapid shallow breathing index. CCU Objective - Vital Signs / Intake & Output Vital Signs (Last 4 hours): Vital Signs Pulse Resp BP Pulse Ox 12/14/17 08:22 27 H 99 12/14/17 06:06 102 H 147/93 H 100 12/14/17 06:00 103 H 99 12/14/17 05:06 103 H 148/94 H 98 Intake and Output (Last 8hrs): Intake & Output 12/13/17 12/14/17 12/14/17 22:59 06:59 14:59 Intake Total 2200 1840 Output Total 1715 1575 Balance 485 265 Weight 173 lb 1.6 oz Intake: IV 400 40 IVPB 350 Right Upper arm 50 40 Oral 0 Tube Feeding 600 600 TPN/PPN 0 Blood Product 0 Lipid 0 Albumin 0 Other 1200 1200 Output: Urine 1675 1575 Urethral (Mackenzie) 1675 1575 Stool 0 Urine/Stool Mix 0 Emesis 0 Oral Regurgitation 0 Other 40 0 Other: # Voids Urethral (Mcakenzie) 0 # Bowel Movements 0 0 - Physical Exam Physical Exam Limitations: Positive for: Altered Mental Status Head: Positive for: Atraumatic, Normocephalic Pupils: Positive for: PERRL, Sluggish Conjunctiva: Negative for: Injected Neck: Positive for: Other (s/p tracheostomy). Negative for: JVD Respiratory/Chest: Positive for: Good Air Exchange, Rhonchi (b/l expiratory), Other (on vent). Negative for: Respiratory Distress, Accessory Muscle Use, Wheezes, Rales, Retracting, Tachypneic Cardiovascular: Positive for: Regular Rate and Rhythm, Normal S1, S2. Negative for: Murmurs Abdomen: Positive for: Normal Bowel Sounds, Feeding Tubes, Ostomy Tubes (PEG tube ). Negative for: Tenderness, Distention, Peritoneal Signs, Rebound, Guarding Genitourinary Male: Positive for: Other (mackenzie catheter in place ) Back: Positive for: Normal Inspection. Negative for: Midline Tenderness Upper Extremity: Positive for: Normal Inspection, NORMAL PULSES, Other (resting right arm tremor, rigidity noted). Negative for: Cyanosis, Edema Lower Extremity: Positive for: Normal Inspection, NORMAL PULSES. Negative for: Edema Neurological: Negative for: GCS=15 Skin: Positive for: Warm, Normal Color Psychiatric: Negative for: Alert, Oriented x 3, Normal Insight, Normal Concentration - Medications Active Medications: Active Medications Generic Name Dose Route Start Last Admin Trade Name Freq PRN Reason Stop Dose Admin Acetaminophen 650 mg 12/05/17 12:27 Tylenol 650 Mg Supp RC Q6H PRN Fever >100.4 F Ascorbic Acid 500 mg 11/28/17 11:30 12/13/17 09:01 Vitamin C 500 Mg Tab PO 500 mg DAILY SHIV Administration Bacitracin 1 ea 11/28/17 08:51 11/28/17 09:34 Bacitracin TOP 1 ea Q6 PRN Administration Swelling Clonidine HCl 0.2 mg 12/12/17 10:00 12/13/17 17:02 Catapres PO 0.2 mg BID SHIV Administration Cyproheptadine HCl 4 mg 12/05/17 11:15 12/14/17 03:19 Periactin PO 4 mg Q8H SHIV Administration Docusate Sodium 100 mg 12/05/17 18:00 12/13/17 17:03 Colace Liquid PO Not Given BID SHIV Folic Acid 1 mg 12/01/17 10:15 12/13/17 09:03 Folic Acid PO 1 mg DAILY SHIV Administration Heparin Sodium (Porcine) 5,000 units 12/13/17 22:00 12/13/17 21:26 Heparin SC 5,000 units Q12 SHIV Administration Protocol Hydralazine HCl 10 mg 11/29/17 14:56 12/13/17 04:06 Apresoline IVP 10 mg Q6 PRN Administration give if SBP >160 Levalbuterol HCl 0.63 mg 12/02/17 09:55 12/13/17 14:02 Xopenex IH 0.63 mg [id number] PRN Administration Shortness of Breath Levetiracetam 750 mg 12/04/17 22:00 12/13/17 21:26 Keppra PO 750 mg Q12 SHIV Administration Lorazepam 2 mg 12/12/17 16:57 12/14/17 04:02 Ativan IVP 2 mg Q4H PRN Administration alcohol withdrawals Protocol Lorazepam 4 mg 12/12/17 17:00 12/14/17 05:11 Ativan PEG 4 mg Q4H SHIV Administration Protocol Multivitamins/Minerals 1 tab 11/29/17 08:00 12/13/17 07:32 Therapeutic-M Tab PO 1 tab 0800 SHIV Administration Pantoprazole Sodium 40 mg 11/22/17 10:00 12/13/17 09:01 Protonix Inj IVP 40 mg DAILY SHIV Administration Polyethylene Glycol 17 gm 12/05/17 18:00 12/13/17 17:03 Miralax PO Not Given BID SHIV Propranolol HCl 40 mg 12/05/17 11:00 12/13/17 17:01 Inderal PO 40 mg BID SHIV Administration Thiamine HCl 100 mg 11/28/17 14:00 12/13/17 17:02 Vitamin B1 Tab PO 100 mg TID SHIV Administration Tobramycin Sulfate 0.08 gm 12/05/17 11:00 12/14/17 07:38 Tobramycin Inj IH 0.08 gm [id number] SHIV Administration Valproate Sodium 750 mg 12/09/17 22:00 12/13/17 21:25 Depakene Oral Soln PO 750 mg Q12 SHIV Administration - Patient Studies Lab Studies: Lab Studies 12/14/17 12/14/17 12/14/17 Range/Units 06:45 05:20 05:20 WBC 7.5 (4.5-11.0) 10^3/ul RBC 3.66 (3.5-6.1) 10^6/uL Hgb 10.9 L (14.0-18.0) g/dL Hct 33.0 L (42.0-52.0) % MCV 90.2 (80.0-105.0) fl MCH 29.8 (25.0-35.0) pg MCHC 33.0 (31.0-37.0) g/dl RDW 13.9 (11.5-14.5) % Plt Count 370 (120.0-450.0) 10^3/uL MPV 9.5 (7.0-11.0) fl Gran % 76.2 H (50.0-68.0) % Lymph % (Auto) 13.0 L (22.0-35.0) % [place] % (Auto) 8.0 H (1.0-6.0) % Eos % (Auto) 2.5 (1.5-5.0) % Baso % (Auto) 0.3 (0.0-3.0) % Gran # 5.73 (1.4-6.5) Lymph # (Auto) 1.0 L (1.2-3.4) [place] # (Auto) 0.6 (0.1-0.6) Eos # (Auto) 0.2 (0.0-0.7) Baso # (Auto) 0.02 (0.0-2.0) K/mm3 Sodium 143 (132-148) mmol/L Potassium 3.9 (3.6-5.0) mmol/L Chloride 105 (98-107) mmol/L Carbon Dioxide 31 (21-33) mmol/L Anion Gap 12 (10-20) BUN 9 (7-21) mg/dL Creatinine 0.6 L (0.8-1.5) mg/dl Est GFR ( Amer) > 60 Est GFR (Non-Af Amer) > 60 Random Glucose 123 H (70-110) mg/dL Calcium 9.1 (8.4-10.5) mg/dL Total Bilirubin 0.5 (0.2-1.3) mg/dL AST 45 (17-59) U/L ALT 57 H (7-56) U/L Alkaline Phosphatase 65 (38-126) U/L Total Protein 5.6 L (5.8-8.3) g/dL Albumin 2.8 L (3.0-4.8) g/dL Globulin 2.7 gm/dL Albumin/Globulin Ratio 1.1 (1.1-1.8) Valproic Acid < 10 L (50.0-100.0) ug/mL Laboratory Results - last 24 hr 12/14/17 12/14/17 12/14/17 05:20 05:20 06:45 WBC 7.5 RBC 3.66 Hgb 10.9 L Hct 33.0 L MCV 90.2 MCH 29.8 MCHC 33.0 RDW 13.9 Plt Count 370 MPV 9.5 Gran % 76.2 H Lymph % (Auto) 13.0 L [place] % (Auto) 8.0 H Eos % (Auto) 2.5 Baso % (Auto) 0.3 Gran # 5.73 Lymph # (Auto) 1.0 L [place] # (Auto) 0.6 Eos # (Auto) 0.2 Baso # (Auto) 0.02 Sodium 143 Potassium 3.9 Chloride 105 Carbon Dioxide 31 Anion Gap 12 BUN 9 Creatinine 0.6 L Est GFR ( Amer) > 60 Est GFR (Non-Af Amer) > 60 Random Glucose 123 H Calcium 9.1 Total Bilirubin 0.5 AST 45 ALT 57 H Alkaline Phosphatase 65 Total Protein 5.6 L Albumin 2.8 L Globulin 2.7 Albumin/Globulin Ratio 1.1 Valproic Acid < 10 L Fingerstick Blood Sugar Results: 111 Review of Systems - Review of Systems Systems not reviewed;Unavailable: Altered Mental Status Critical Care Progress Note - Ventilator Checklist Head of Bed 30 Degrees: Yes Daily Assessment of Readiness to Wean: Yes Daily Spontaneous Breathing Trial: Yes PUD Prophalyxis: Yes DVT Prophylaxis: Yes Oral Care with Chlorhexidine Gluconate {CHG}: Yes - Vent Settings MODE:: PRVC - Extremities/Vascular Does the Patient have a Central Venous Catheter?: Yes (R PICC) Does the Patient need a Central Venous Catheter?: Yes Does the Patient have a Mackenzie Catheter?: Yes Does the Patient need a Mackenzie Catheter?: Yes - Restraints Justification for Restraints: High risk for self extubation, High risk for removing IV access, High risk for harming self - Prophylaxis GI Prophylaxis GI: PPI - Prophylaxis DVT Prophylaxis DVT: Heparin SQ, SCDs Assessment/Plan - Assessment and Plan (Free Text) Assessment: 62yo M with PMHx of Bipolar disorder and ETOH abuse in ICU for DTs 2/2 ETOH withdrawal and inability to wean off vent. Patient initially admitted to psych for suicidal ideation then transferred to in-patient due to severe ETOH withdrawal with DTs requiring high-dose sedation and intubation. Rhabdomyolysis was also noted, but has resolved. CXR showed RLL consolidation, and patient has been on antibiotics to cover HCAP and sinusitis seen on imaging. s/p Trach and PEG tube. Patient has failed his third pressure support trial this morning and required to be placed back on PRVC. Patient is off sedation. Plan: Neuro: - off sedation - Ativan SHIV and PRN per Psych's recommendations - cont Clonidine - will cont on Propranolol and Cyprohepatadine for tremor, monitor for changes - continue thiamine, folic acid and multivitamin supplements - Neuro consulted- recs appreciated - 2 EEG's have been unremarkable so far; repeat EEG yesterday pending read - MRI brain showed persistent b/l maxially, ethomoid and sphoenoid sinusitis w/ mastoid effusions - Keppra 750mg BID and Depakote 750mg BID for seizure precautions; neuro managing changes - VPA level was sub-therapeutic - Continue CIWA protocol, seizure precaution, aspiration precaution Cardio: - HD stable - Maintain MAP> 65mmHg - Hydralazine PRN for BP control - Propranolol started scheduled - continue IVF Pulm: - s/p tracheostomy by ENT team - Patient failed pressure support trial this morning (his third trial) due to high rapid shallow breathing index and required to be placed back on PRVC - Protective lung ventilation strategy, HOB elevated, daily oral care, and aspiration precautions, DVT and GI ppx, as well as daily attempts to wean off vent - CXR shows alveolar pulmonary edema in R lung - Xopenex PRN - Patient has completed 8 day course of Meropenem and Vancomycin as well as tobramycin inhaled for sinusitis and possible RLL pneumonia - currently off antibiotics per ID recs - Maintain spO2>90% GI: - cont PEG tube feeds - Thiamine, Folic acid, and MV for ETOH withdrawal and DTs - PPI for GI ppx - s/p PEG by GI team Heme: - Hgb stable - platelets stable - monitor H/H daily Nephro: - Will continue to monitor electrolytes and replace as needed - Continue to monitor I&O Endo: - stable blood glucose levels - maintain euglycemia ID: - has been afebrile; blood cultures and UA negative. prior fevers likely 2/2 DT' s - off antibiotics; completed 8 days of Meropenem, Vancomycin and Tobramycin inhaled for sinusitis and HCAP - Bacitracin, Zinc, MV and vit C for skin - ID consulted- recs appreciated - PICC line in place Psych: - Hx of Bipolar - Psych consulted- recs appreciated - will evaluate once off of sedation - Consent for trach and PICC line obtained by Dr. Velez on 12/05 with family members over phone; consent for PEG obtained by GI team GI ppx: Protonix DVT ppx: Heparin SC and SCDs Diet: Tube feeds per PEG tube Dispo: Plan for LTAC per SW. Patient is off sedation but failed pressure support trial on trach this morning; will attempt to wean daily. Patient was seen, examined, and discussed with attending, Dr. Agustin Traore PGY1 Pager [phone] <Mike Velez - Last Filed: 12/14/17 11:40> CCU Objective - Vital Signs / Intake & Output Vital Signs (Last 4 hours): Vital Signs Pulse Resp BP Pulse Ox 12/14/17 10:11 95 H 149/112 H 12/14/17 10:09 95 H 145/112 H 12/14/17 08:22 27 H 99 Intake and Output (Last 8hrs): Intake & Output 12/13/17 12/14/17 12/14/17 22:59 06:59 14:59 Intake Total 2200 1840 Output Total 1715 1575 Balance 485 265 Weight 173 lb 1.6 oz Intake: IV 400 40 IVPB 350 Right Upper arm 50 40 Oral 0 Tube Feeding 600 600 TPN/PPN 0 Blood Product 0 Lipid 0 Albumin 0 Other 1200 1200 Output: Urine 1675 1575 Urethral (Mackenzie) 1675 1575 Stool 0 Urine/Stool Mix 0 Emesis 0 Oral Regurgitation 0 Other 40 0 Other: # Voids Urethral (Mackenzie) 0 # Bowel Movements 0 0 - Medications Active Medications: Active Medications Generic Name Dose Route Start Last Admin Trade Name Freq PRN Reason Stop Dose Admin Acetaminophen 650 mg 12/05/17 12:27 Tylenol 650 Mg Supp RC Q6H PRN Fever >100.4 F Ascorbic Acid 500 mg 11/28/17 11:30 12/14/17 10:11 Vitamin C 500 Mg Tab PO 500 mg DAILY SHIV Administration Bacitracin 1 ea 11/28/17 08:51 11/28/17 09:34 Bacitracin TOP 1 ea Q6 PRN Administration Swelling Clonidine HCl 0.2 mg 12/12/17 10:00 12/14/17 10:11 Catapres PO 0.2 mg BID SHIV Administration Cyproheptadine HCl 4 mg 12/05/17 11:15 12/14/17 03:19 Periactin PO 4 mg Q8H SHIV Administration Docusate Sodium 100 mg 12/05/17 18:00 12/14/17 10:13 Colace Liquid PO Not Given BID SHIV Folic Acid 1 mg 12/01/17 10:15 12/14/17 10:11 Folic Acid PO 1 mg DAILY SHIV Administration Heparin Sodium (Porcine) 5,000 units 12/13/17 22:00 12/14/17 10:10 Heparin SC 5,000 units Q12 SHIV Administration Protocol Hydralazine HCl 10 mg 11/29/17 14:56 12/13/17 04:06 Apresoline IVP 10 mg Q6 PRN Administration give if SBP >160 Levalbuterol HCl 0.63 mg 12/02/17 09:55 12/13/17 14:02 Xopenex IH 0.63 mg [id number] PRN Administration Shortness of Breath Levetiracetam 750 mg 12/04/17 22:00 12/14/17 10:08 Keppra PO 750 mg Q12 SHIV Administration Lorazepam 2 mg 12/12/17 16:57 12/14/17 04:02 Ativan IVP 2 mg Q4H PRN Administration alcohol withdrawals Protocol Lorazepam 4 mg 12/12/17 17:00 12/14/17 10:09 Ativan PEG 4 mg Q4H SHIV Administration Protocol Multivitamins/Minerals 1 tab 11/29/17 08:00 12/14/17 10:09 Therapeutic-M Tab PO 1 tab 0800 SHIV Administration Pantoprazole Sodium 40 mg 11/22/17 10:00 12/14/17 10:12 Protonix Inj IVP 40 mg DAILY SHIV Administration Polyethylene Glycol 17 gm 12/05/17 18:00 12/14/17 10:13 Miralax PO Not Given BID SHIV Propranolol HCl 40 mg 12/05/17 11:00 12/14/17 10:09 Inderal PO 40 mg BID SHIV Administration Thiamine HCl 100 mg 11/28/17 14:00 12/14/17 10:12 Vitamin B1 Tab PO 100 mg TID SHIV Administration Tobramycin Sulfate 0.08 gm 12/05/17 11:00 12/14/17 07:38 Tobramycin Inj IH 0.08 gm [id number] SHIV Administration Valproate Sodium 750 mg 12/09/17 22:00 12/14/17 10:09 Depakene Oral Soln PO 750 mg Q12 SHIV Administration - Patient Studies Lab Studies: Lab Studies 12/14/17 12/14/17 12/14/17 Range/Units 06:45 05:20 05:20 WBC 7.5 (4.5-11.0) 10^3/ul RBC 3.66 (3.5-6.1) 10^6/uL Hgb 10.9 L (14.0-18.0) g/dL Hct 33.0 L (42.0-52.0) % MCV 90.2 (80.0-105.0) fl MCH 29.8 (25.0-35.0) pg MCHC 33.0 (31.0-37.0) g/dl RDW 13.9 (11.5-14.5) % Plt Count 370 (120.0-450.0) 10^3/uL MPV 9.5 (7.0-11.0) fl Gran % 76.2 H (50.0-68.0) % Lymph % (Auto) 13.0 L (22.0-35.0) % [place] % (Auto) 8.0 H (1.0-6.0) % Eos % (Auto) 2.5 (1.5-5.0) % Baso % (Auto) 0.3 (0.0-3.0) % Gran # 5.73 (1.4-6.5) Lymph # (Auto) 1.0 L (1.2-3.4) [place] # (Auto) 0.6 (0.1-0.6) Eos # (Auto) 0.2 (0.0-0.7) Baso # (Auto) 0.02 (0.0-2.0) K/mm3 Sodium 143 (132-148) mmol/L Potassium 3.9 (3.6-5.0) mmol/L Chloride 105 (98-107) mmol/L Carbon Dioxide 31 (21-33) mmol/L Anion Gap 12 (10-20) BUN 9 (7-21) mg/dL Creatinine 0.6 L (0.8-1.5) mg/dl Est GFR ( Amer) > 60 Est GFR (Non-Af Amer) > 60 Random Glucose 123 H (70-110) mg/dL Calcium 9.1 (8.4-10.5) mg/dL Total Bilirubin 0.5 (0.2-1.3) mg/dL AST 45 (17-59) U/L ALT 57 H (7-56) U/L Alkaline Phosphatase 65 (38-126) U/L Total Protein 5.6 L (5.8-8.3) g/dL Albumin 2.8 L (3.0-4.8) g/dL Globulin 2.7 gm/dL Albumin/Globulin Ratio 1.1 (1.1-1.8) Valproic Acid < 10 L (50.0-100.0) ug/mL Laboratory Results - last 24 hr 12/14/17 12/14/17 12/14/17 05:20 05:20 06:45 WBC 7.5 RBC 3.66 Hgb 10.9 L Hct 33.0 L MCV 90.2 MCH 29.8 MCHC 33.0 RDW 13.9 Plt Count 370 MPV 9.5 Gran % 76.2 H Lymph % (Auto) 13.0 L [place] % (Auto) 8.0 H Eos % (Auto) 2.5 Baso % (Auto) 0.3 Gran # 5.73 Lymph # (Auto) 1.0 L [place] # (Auto) 0.6 Eos # (Auto) 0.2 Baso # (Auto) 0.02 Sodium 143 Potassium 3.9 Chloride 105 Carbon Dioxide 31 Anion Gap 12 BUN 9 Creatinine 0.6 L Est GFR ( Amer) > 60 Est GFR (Non-Af Amer) > 60 Random Glucose 123 H Calcium 9.1 Total Bilirubin 0.5 AST 45 ALT 57 H Alkaline Phosphatase 65 Total Protein 5.6 L Albumin 2.8 L Globulin 2.7 Albumin/Globulin Ratio 1.1 Valproic Acid < 10 L Attending/Attestation - Attestation I have personally seen and examined this patient.: Yes I have fully participated in the care of the patient.: Yes I have reviewed all pertinent clinical information: Yes Notes (Text): 12/14/17 11: Failed PST/SBT again (RSBI>200 within first minute). cont sedation tapering, daily weaning trial, protective lung ventilation, conservative fluid and 02 management. completed course of 8 day abx, dvt/gi prophyalxis, HOB>35, oral hygiene, DVT/GI prophylaxis. ccm time 40 min
[2017-12-14] MEDS: levETIRAcetam 500 mg/5ml UD cups PO SCH ×2 (10:08→21:00)
[2017-12-14] MEDS: Multivitamin With Minerals Tab PO SCH (10:09)
[2017-12-14] MEDS: Valproic Acid 250 mg/5 ml UD Cup PO SCH ×2 (10:09→21:11)
[2017-12-14] MEDS: POLYETHYLENE GLYCOL 3350 17 GM/Dose PACKET PO SCH ×2 (10:13→17:58)
--- NOTE | 2017-12-14 11:56 | CP.PCM.PN ---
<Sarkis Fuentes S - Last Filed: 12/14/17 11:53> Subjective - Date & Time of Evaluation Date of Evaluation: 12/14/17 Time of Evaluation: 07:20 - Subjective Subjective: Medicine progress note for Dr. Chaparro Hospitalist Service Patient seen and examined at bedside. Patient remains off of sedative drips, but he is currently on benzodiazepines for agitation. He required two prn doses overnight. ROS not obtainable due to altered mental status. Objective - Vital Signs/Intake and Output Vital Signs (last 24 hours): Temp Pulse Resp BP Pulse Ox 99.3 F 95 H 27 H 149/112 H 99 12/14/17 04:00 12/14/17 10:11 12/14/17 08:22 12/14/17 10:11 12/14/17 08:22 Intake and Output: 12/14/17 12/14/17 06:59 18:59 Intake Total 1840 Output Total 1575 Balance 265 - Medications Medications: Current Medications Acetaminophen (Tylenol 650 Mg Supp) 650 mg RC Q6H PRN PRN Reason: Fever >100.4 F Ascorbic Acid (Vitamin C 500 Mg Tab) 500 mg PO DAILY [facility] Last Admin: 12/14/17 10:11 Dose: 500 mg Bacitracin (Bacitracin) 1 ea TOP Q6 PRN PRN Reason: Swelling Last Admin: 11/28/17 09:34 Dose: 1 ea Clonidine HCl (Catapres) 0.2 mg PO BID [facility] Last Admin: 12/14/17 10:11 Dose: 0.2 mg Cyproheptadine HCl (Periactin) 4 mg PO Q8H [facility] Last Admin: 12/14/17 03:19 Dose: 4 mg Docusate Sodium (Colace Liquid) 100 mg PO BID [facility] Last Admin: 12/14/17 10:13 Dose: Not Given Folic Acid (Folic Acid) 1 mg PO DAILY [facility] Last Admin: 12/14/17 10:11 Dose: 1 mg Heparin Sodium (Porcine) (Heparin) 5,000 units SC Q12 [facility] PRN Reason: Protocol Last Admin: 12/14/17 10:10 Dose: 5,000 units Hydralazine HCl (Apresoline) 10 mg IVP Q6 PRN PRN Reason: give if SBP >160 Last Admin: 12/13/17 04:06 Dose: 10 mg Levalbuterol HCl (Xopenex) 0.63 mg IH [id number] PRN PRN Reason: Shortness of Breath Last Admin: 12/13/17 14:02 Dose: 0.63 mg Levetiracetam (Keppra) 750 mg PO Q12 [facility] Last Admin: 12/14/17 10:08 Dose: 750 mg Lorazepam (Ativan) 2 mg IVP Q4H PRN; Protocol PRN Reason: alcohol withdrawals Last Admin: 12/14/17 04:02 Dose: 2 mg Lorazepam (Ativan) 4 mg PEG Q4H [facility] PRN Reason: Protocol Last Admin: 12/14/17 10:09 Dose: 4 mg Multivitamins/Minerals (Therapeutic-M Tab) 1 tab PO 0800 [facility] Last Admin: 12/14/17 10:09 Dose: 1 tab Pantoprazole Sodium (Protonix Inj) 40 mg IVP DAILY [facility] Last Admin: 12/14/17 10:12 Dose: 40 mg Polyethylene Glycol (Miralax) 17 gm PO BID [facility] Last Admin: 12/14/17 10:13 Dose: Not Given Propranolol HCl (Inderal) 40 mg PO BID [facility] Last Admin: 12/14/17 10:09 Dose: 40 mg Thiamine HCl (Vitamin B1 Tab) 100 mg PO TID [facility] Last Admin: 12/14/17 10:12 Dose: 100 mg Tobramycin Sulfate (Tobramycin Inj) 0.08 gm IH [id number] [facility] Last Admin: 12/14/17 07:38 Dose: 0.08 gm Valproate Sodium (Depakene Oral Soln) 750 mg PO Q12 [facility] Last Admin: 12/14/17 10:09 Dose: 750 mg - Labs Labs: 12/14/17 05:20 12/14/17 05:20 PT 15.4 SECONDS (9.4-12.5) H 12/10/17 07:00 INR 1.33 (0.93-1.08) H 12/10/17 07:00 - Constitutional Appears: Chronically Ill - Head Exam Head Exam: ATRAUMATIC, NORMOCEPHALIC - Eye Exam Pupil Exam: Mydriatic, PERRL - ENT Exam ENT Exam: Mucous Membranes Moist - Neck Exam Additional comments: Tracheostomy in place - Respiratory Exam Additional comments: Coarse breath sounds bilaterally. On ventilator support with settings 50% FiO2, PEEP 5, Tidal Volume 400, Respiratory rate 18 - Cardiovascular Exam Cardiovascular Exam: REGULAR RHYTHM, +S1, +S2 - GI/Abdominal Exam GI & Abdominal Exam: Soft, Normal Bowel Sounds. absent: Distended, Guarding, Tenderness Additional comments: PEG tube in place on left side of the abdomen. No obvious signs of infection from site of insertion - Exam Additional comments: mackenzie in place draining light yellow urine - Extremities Exam Additional comments: Right arm PICC line in place with no obvious signs of infection Much improvement noted in the non-pitting edema in the upper and lower extremities Blisters on right hand - Neurological Exam Neurological Exam: Altered - Skin Skin Exam: Warm Assessment and Plan - Assessment and Plan (Free Text) Assessment: 62 year old male with PMHx of Bipolar disorder and ETOH abuse in ICU for DTs. Patient initially admitted to psych for suicidal ideation then transferred to in -patient due to severe ETOH withdrawal with DTs requiring high-dose sedation and intubation. Subclinical seizure noted on EEG performed on 11/30/17. Fevers likely due to DTs versus developing RLL consolidation and pleural effusion seen on CXR. Repeat EEG showing artifact likely from hand tremors. Patient's sister Bindu Ashton ([phone]) was able to get in touch with the critical care team and advocate for PEG placement, and she will be the healthcare proxy from this point forward. PEG placed on 12/09/17, and trach placed on 12/11/17. Patient failed weaning off of ventilation for three days now after his trach placement. Plan: 1. ETOH withdrawal with Delirium Tremens - Trached and on ventilator support. Vent settings as follows: 50% FiO2, PEEP 5 , Tidal Volume 400, Respiratory rate 18 - Neuro consulted- recs appreciated - Continue CIWA protocol, seizure precaution, aspiration precaution - Head CT negative for acute pathology - EEG with subclinical seizure seen; neurology recommends repeat EEG - IV Depakote and Keppra on board for seizure prophylaxis and mood stabilization - MRI brain showed persistent bilateral maxially, ethomoid and sphenoid sinusitis with mastoid effusions - Ativan 4 mg PEG Q4H [facility] and 2 mg IV Q4 prn - One dose of Vistaril was given on 12/14/17 in attempt to improve patient's agitation 2. Altered Mental Status, currently being sedated for DT's - CT head was unremarkable - thiamine increased to protect against encephalopathy - EEG with subclinical seizure seen however repeat EEG does not show this. It shows artifact likely caused by patient's hand tremors. - Per neurology, agitation possibly manifestation of patient's psychiatric illnesses. Seroquel was started and mood stabilizers were increased in dosages. 3. Right lower lobe consolidations secondary to HCAP - Seen on CXR and worsening, with pleural effusion as well - Possible pneumonia with pleural effusion versus atelectasis - Treated with Merrem and Vancomycin 4. Sinusitis - seen on MRI - Continue to treat with Inhaled Tobramycin 5. Blisters on hands - Multivitamin, vit C and Zinc added - Bacitracin ointment to be applied 6. Rhabdomyolysis - likely secondary to DT's - renal function has not been affected - CPK markedly elevated but is now downtrending - will monitor 7. Fever, suspected due to pneumonia - Possibly secondary to ETOH withdrawals - ID consult, appreciate recs - Currently afebrile - negative Lower Extremity ultrasound - no vegetations seen on echo -Remeron as a cause of suspected but unlikely serotonin syndrome; cyproheptadine and propranolol started 8. Electrolyte imbalance - monitor and replete as needed 9. Transaminitis Due to chronic alcohol abuse, will discuss alcohol cessation with patient once no longer sedated. 10. Prophylaxis - SCDs - Aspiration precautions - Seizure precautions - Heparin SC - Protonix Disposition: Patient with trach but requires ventilator support (Settings: 50% FiO2, PEEP 5, Tidal Volume 400, Respiratory rate 18). Right arm PICC line in place. Continue to attempt weaning off of ventilation support. Patient has failed weaning trial with CPAP off of the ventilator three times now since being trached. Follow up with case management team for discharge planning. Discussed and seen with Dr. Chaparro <Charlotte Chaparro - Last Filed: 12/14/17 13:33> Objective - Vital Signs/Intake and Output Vital Signs (last 24 hours): Temp Pulse Resp BP Pulse Ox 99.3 F 95 H 27 H 149/112 H 99 12/14/17 04:00 12/14/17 10:11 12/14/17 08:22 12/14/17 10:11 12/14/17 08:22 Intake and Output: 12/14/17 12/14/17 06:59 18:59 Intake Total 1840 Output Total 1575 Balance 265 - Medications Medications: Current Medications Acetaminophen (Tylenol 650 Mg Supp) 650 mg RC Q6H PRN PRN Reason: Fever >100.4 F Ascorbic Acid (Vitamin C 500 Mg Tab) 500 mg PO DAILY [facility] Last Admin: 12/14/17 10:11 Dose: 500 mg Bacitracin (Bacitracin) 1 ea TOP Q6 PRN PRN Reason: Swelling Last Admin: 11/28/17 09:34 Dose: 1 ea Clonidine HCl (Catapres) 0.2 mg PO BID [facility] Last Admin: 12/14/17 10:11 Dose: 0.2 mg Cyproheptadine HCl (Periactin) 4 mg PO Q8H [facility] Last Admin: 12/14/17 03:19 Dose: 4 mg Docusate Sodium (Colace Liquid) 100 mg PO BID [facility] Last Admin: 12/14/17 10:13 Dose: Not Given Folic Acid (Folic Acid) 1 mg PO DAILY [facility] Last Admin: 12/14/17 10:11 Dose: 1 mg Heparin Sodium (Porcine) (Heparin) 5,000 units SC Q12 [facility] PRN Reason: Protocol Last Admin: 12/14/17 10:10 Dose: 5,000 units Hydralazine HCl (Apresoline) 10 mg IVP Q6 PRN PRN Reason: give if SBP >160 Last Admin: 12/13/17 04:06 Dose: 10 mg Levalbuterol HCl (Xopenex) 0.63 mg IH [id number] PRN PRN Reason: Shortness of Breath Last Admin: 12/13/17 14:02 Dose: 0.63 mg Levetiracetam (Keppra) 750 mg PO Q12 [facility] Last Admin: 12/14/17 10:08 Dose: 750 mg Lorazepam (Ativan) 2 mg IVP Q4H PRN; Protocol PRN Reason: alcohol withdrawals Last Admin: 12/14/17 04:02 Dose: 2 mg Lorazepam (Ativan) 4 mg PEG Q4H [facility] PRN Reason: Protocol Last Admin: 12/14/17 10:09 Dose: 4 mg Multivitamins/Minerals (Therapeutic-M Tab) 1 tab PO 0800 [facility] Last Admin: 12/14/17 10:09 Dose: 1 tab Pantoprazole Sodium (Protonix Inj) 40 mg IVP DAILY [facility] Last Admin: 12/14/17 10:12 Dose: 40 mg Polyethylene Glycol (Miralax) 17 gm PO BID [facility] Last Admin: 12/14/17 10:13 Dose: Not Given Propranolol HCl (Inderal) 40 mg PO BID [facility] Last Admin: 12/14/17 10:09 Dose: 40 mg Thiamine HCl (Vitamin B1 Tab) 100 mg PO TID [facility] Last Admin: 12/14/17 10:12 Dose: 100 mg Tobramycin Sulfate (Tobramycin Inj) 0.08 gm IH [id number] [facility] Last Admin: 12/14/17 07:38 Dose: 0.08 gm Valproate Sodium (Depakene Oral Soln) 750 mg PO Q12 [facility] Last Admin: 12/14/17 10:09 Dose: 750 mg - Labs Labs: 12/14/17 05:20 12/14/17 05:20 PT 15.4 SECONDS (9.4-12.5) H 12/10/17 07:00 INR 1.33 (0.93-1.08) H 12/10/17 07:00 Attending/Attestation - Attestation I have personally seen and examined this patient.: Yes I have fully participated in the care of the patient.: Yes I have reviewed all pertinent clinical information, including history, physical exam and plan: Yes Notes (Text): 12/14/17 13:32 attending note; Patient seen and examined with the resident in ICU. patient is a 62 year old male with history of bipolar disorder and chronic alcohol abuse is admitted for alcohol withdrawal and delirium tremens. s/p PEG placement and trach placement. not tolerating weaning trial. Patient is awake. Not following commands. Continue Ativan. Started on Vistaril for possible tardive dyskinesia. Pneumonia; CXR reveals RLL consolidation. Patient is on Meropenem, vancomycin and tobramycin. UDS negative. Echo did not reveal any vegetation. will complete 7-10 days of antibiotics. patient requires LTAC placement. Monitor closely in ICU.
[2017-12-14] MEDS: Levalbuterol 0.63 MG/3 ML Inhal Soln UD IH PRN (13:53)
--- NOTE | 2017-12-14 17:43 | CP.PCM.PN ---
Subjective - Date & Time of Evaluation Date of Evaluation: 12/14/17 Time of Evaluation: 17:00 - Subjective Subjective: Infectious Disease Follow Up: December 14, 2017 62 yo male with medical history that includes Bipolar disorder and alcohol abuse presented with EtOH intoxication and now in withdrawals. Originally in the psych floor for bipolar disease treatment and suicidal ideation on 11/21/2017. The patient required intubation. ID initially called for possible aspiration pneumonia. No fevers, leukocytosis at this time. Remains intubated. Still no fevers or leukocytosis. Remains sedated. Noted blistered skin on right hand that slightly improved. Persistent fevers up to 102.0 F earlier in course of hospitalization but afebrile the last few days.. Still no leukocytosis. Cultures from 11/30/2017 negative. New cultures sent 12/01-. Multiple blisters on the right hand. Fluid filler and dark in color. Would obtain fluid from blisters for culture. Would consider CT of chest/ abdomen/pelvis. Continue on meropenem for antibiotic coverage at this point. Also on inhaled tobramycin and IV Zyvox. No new issues. Difficult extubation. Patient severely agitated when taken off sedation. Tremors present and more pronounced when off sedation. Currently afebrile but still with diaphoresis and tremors. Does not follow commands. Trach and PEG Mentally no improvement. Chest X-ray still with patchy infiltrate in right lung and atelectasis. No new issues so far. Objective - Vital Signs/Intake and Output Vital Signs (last 24 hours): Temp Pulse Resp BP Pulse Ox 99.3 F 96 H 27 H 132/89 99 12/14/17 04:00 12/14/17 16:06 12/14/17 08:22 12/14/17 16:06 12/14/17 09:06 Intake and Output: 12/14/17 12/14/17 06:59 18:59 Intake Total 1840 Output Total 1575 Balance 265 - Medications Medications: Current Medications Acetaminophen (Tylenol 650 Mg Supp) 650 mg RC Q6H PRN PRN Reason: Fever >100.4 F Ascorbic Acid (Vitamin C 500 Mg Tab) 500 mg PO DAILY [facility] Last Admin: 12/14/17 10:11 Dose: 500 mg Bacitracin (Bacitracin) 1 ea TOP Q6 PRN PRN Reason: Swelling Last Admin: 11/28/17 09:34 Dose: 1 ea Clonidine HCl (Catapres) 0.2 mg PO BID [facility] Last Admin: 12/14/17 10:11 Dose: 0.2 mg Cyproheptadine HCl (Periactin) 4 mg PO Q8H [facility] Last Admin: 12/14/17 12:40 Dose: 4 mg Docusate Sodium (Colace Liquid) 100 mg PO BID [facility] Last Admin: 12/14/17 10:13 Dose: Not Given Folic Acid (Folic Acid) 1 mg PO DAILY [facility] Last Admin: 12/14/17 10:11 Dose: 1 mg Heparin Sodium (Porcine) (Heparin) 5,000 units SC Q12 [facility] PRN Reason: Protocol Last Admin: 12/14/17 10:10 Dose: 5,000 units Hydralazine HCl (Apresoline) 10 mg IVP Q6 PRN PRN Reason: give if SBP >160 Last Admin: 12/13/17 04:06 Dose: 10 mg Hydroxyzine Pamoate (Vistaril) 25 mg PEG Q8H [facility] PRN Reason: Protocol Last Admin: 12/14/17 15:42 Dose: 25 mg Levalbuterol HCl (Xopenex) 0.63 mg IH [id number] PRN PRN Reason: Shortness of Breath Last Admin: 12/14/17 13:53 Dose: 0.63 mg Levetiracetam (Keppra) 750 mg PO Q12 [facility] Last Admin: 12/14/17 10:08 Dose: 750 mg Lorazepam (Ativan) 2 mg IVP Q4H PRN; Protocol PRN Reason: alcohol withdrawals Last Admin: 12/14/17 04:02 Dose: 2 mg Lorazepam (Ativan) 4 mg PEG Q4H [facility] PRN Reason: Protocol Last Admin: 12/14/17 16:17 Dose: 4 mg Multivitamins/Minerals (Therapeutic-M Tab) 1 tab PO 0800 [facility] Last Admin: 12/14/17 10:09 Dose: 1 tab Pantoprazole Sodium (Protonix Inj) 40 mg IVP DAILY [facility] Last Admin: 12/14/17 10:12 Dose: 40 mg Polyethylene Glycol (Miralax) 17 gm PO BID [facility] Last Admin: 12/14/17 10:13 Dose: Not Given Propranolol HCl (Inderal) 40 mg PO BID [facility] Last Admin: 12/14/17 10:09 Dose: 40 mg Thiamine HCl (Vitamin B1 Tab) 100 mg PO TID [facility] Last Admin: 12/14/17 15:41 Dose: 100 mg Valproate Sodium (Depakene Oral Soln) 750 mg PO Q12 [facility] Last Admin: 12/14/17 10:09 Dose: 750 mg - Labs Labs: 12/14/17 05:20 12/14/17 05:20 PT 15.4 SECONDS (9.4-12.5) H 12/10/17 07:00 INR 1.33 (0.93-1.08) H 12/10/17 07:00 - Constitutional Appears: Chronically Ill - Head Exam Additional comments: intubated and ventilated. - Eye Exam Eye Exam: EOMI, PERRL Pupil Exam: NORMAL ACCOMODATION, PERRL - ENT Exam ENT Exam: Mucous Membranes Moist, Normal External Ear Exam, TM's Normal Bilaterally - Neck Exam Neck Exam: Full ROM, Normal Inspection - Respiratory Exam Respiratory Exam: Clear to Ausculation Bilateral, NORMAL BREATHING PATTERN. absent: Rales, Rhonchi, Wheezes - Cardiovascular Exam Cardiovascular Exam: REGULAR RHYTHM, RRR, +S1, +S2 - GI/Abdominal Exam GI & Abdominal Exam: Soft, Normal Bowel Sounds. absent: Distended, Tenderness - Extremities Exam Extremities Exam: Joint Swelling, Pedal Edema - Neurological Exam Additional comments: poorly responsive and sedated. - Skin Additional comments: Multiple blisters on the right hand. Fluid filler and dark in color. All the blisters are now burst. Assessment and Plan - Assessment and Plan (Free Text) Assessment: 62 yo male with EtOH abuse. Developed EtOH withdrawal and now required intubation and ventilation. The patient was being evaluated by ID for potential aspiration. The patient is currently on Cefepime and Vancomycin. If aspiration is a significant concern, would either add Flagyl IV or switch Cefepime to Meropenem or Zosyn. Febrile several days ago up to 102 F. Afebrile the last few days. No leukocytosis. No findings on Chest X-ray. Supportive care. Procalcitonin is 0.14 which is low. Noted procalcitonin repeated multiple times and all showing low values. Suggests strongly against bacterial causes but does not rule out viral. More likely secondary to the EtOH withdrawal and Delirium Tremens. Case discussed with team. Off antibiotics now. Will Monitor. Difficult extubation/wean from ventilation. Agitation when off sedation. Afebrile today but one temperature value showed hypothermia. Repeat cultures with next fever. Check urinalysis and urine culture. 11/30/2017 cultures negative so far. 12/01/2017 cultures with no specific growth. Afebrile the last few dates. Sputum cultures with yeast. Chest X-ray suggesting HCAP. For now the patient has remained afebrile. Supportive care. No improvement mentally. Extremely agitated when sedation stopped. Of concern is that the temperatures today have been borderline feverish yesterday... more stable temperatures today. Trach and PEG done. Antibiotics completed. Supportive care. Thank you for allowing me to participate in the care of the patient, we will follow with you.
[2017-12-15 05:39] LABS: BASO # 0.02 K/mm3 (0.0-2.0); BASO % 0.3 % (0.0-3.0); EOS # 0.2 (0.0-0.7); EOS % 3.2 % (1.5-5.0); GRAN # 4.7 (1.4-6.5); GRAN % 76.2 % (50.0-68.0); HEMOGLOBIN 9.8 g/dL (14.0-18.0); LYMPH # 0.9 (1.2-3.4); LYMPH % 14.2 % (22.0-35.0); MEAN CELL VOLUME 91.5 fl (80.0-105.0); MEAN CORPUSCULAR HEMOGLOBIN 29.9 pg (25.0-35.0); MEAN CORPUSCULAR HGB CONC 32.7 g/dl (31.0-37.0); MEAN PLATELET VOLUME 9.5 fl (7.0-11.0); MONO # 0.4 (0.1-0.6); MONO % 6.1 % (1.0-6.0); RBC 3.28 10^6/uL (3.5-6.1); RED CELL DISTRIBUTION WIDTH 14.1 % (11.5-14.5); WHITE BLOOD COUNT 6.2 10^3/ul (4.5-11.0)
[2017-12-15 06:21] LABS: ALB/GLOB RATIO 1.1 (1.1-1.8); ALBUMIN 2.8 g/dL (3.0-4.8); ALT/SGPT 49 U/L (7-56); AST/SGOT 28 U/L (17-59); BLOOD UREA NITROGEN 10 mg/dL (7-21); CALCIUM 8.9 mg/dL (8.4-10.5); GFR AFRICAN-AMERICAN > 60; GFR NON-AFRICAN AMERICAN > 60
--- NOTE | 2017-12-15 06:58 | CP.CCUPN ---
<Singh Traore - Last Filed: 12/15/17 10:22> CCU Subjective - Physician Review Subjective (Free Text): Singh Traore PGY1 ICU Note for Dr. Kong Patient was seen and examined in ICU. He is awake and more responsive than on prior days and is able to follow some simple commands (able to stick his tongue out on command but not show 2 fingers when asked). He is off sedation and only getting scheduled Ativan and not requiring PRN's overnight. The patient is not noted to be in distress or agitation. He has not required restraints since yesterday as well. Will attempt PS trial this morning. ROS could not be obtained due to AMS. CCU Objective - Vital Signs / Intake & Output Vital Signs (Last 4 hours): Vital Signs Temp Pulse Resp BP Pulse Ox 12/15/17 06:00 76 18 97/54 L 100 12/15/17 05:00 83 18 104/70 99 12/15/17 04:00 98.3 F 90 23 117/77 99 12/15/17 03:00 100 H 39 H 132/90 98 Intake and Output (Last 8hrs): Intake & Output 12/14/17 12/14/17 12/15/17 14:59 22:59 06:59 Intake Total 1800 1880 Output Total 1900 1300 Balance -100 580 Intake: Tube Feeding 600 680 Other 1200 1200 Output: Urine 1900 1300 Urethral (Mackenzie) 1900 1300 Other: # Bowel Movements 0 - Physical Exam Physical Exam Limitations: Positive for: Altered Mental Status Head: Positive for: Atraumatic, Normocephalic Pupils: Positive for: PERRL, Sluggish Conjunctiva: Negative for: Injected Ears: Positive for: Normal Mouth: Positive for: Dry, Normal Teeth Pharnyx: Positive for: Normal Neck: Positive for: Other (s/p tracheostomy). Negative for: JVD Respiratory/Chest: Positive for: Clear to Auscultation, Good Air Exchange, Other (on vent). Negative for: Respiratory Distress, Accessory Muscle Use, Wheezes, Rales, Retracting, Rhonchi, Tachypneic Cardiovascular: Positive for: Regular Rate and Rhythm, Normal S1, S2. Negative for: Murmurs Abdomen: Positive for: Normal Bowel Sounds, Feeding Tubes, Ostomy Tubes (PEG tube ). Negative for: Tenderness, Distention, Peritoneal Signs, Rebound, Guarding Genitourinary Male: Positive for: Other (mackenzie catheter in place ) Back: Positive for: Normal Inspection. Negative for: Midline Tenderness Upper Extremity: Positive for: Normal Inspection, NORMAL PULSES, Other (resting right arm tremor, rigidity noted). Negative for: Cyanosis, Edema Lower Extremity: Positive for: Normal Inspection, NORMAL PULSES. Negative for: Edema Neurological: Positive for: Other (follows simple commands, not sedated, is more awake but lethargic). Negative for: GCS=15, Speech Normal Skin: Positive for: Warm, Normal Color Psychiatric: Negative for: Alert, Oriented x 3, Normal Insight, Normal Concentration - Medications Active Medications: Active Medications Generic Name Dose Route Start Last Admin Trade Name Freq PRN Reason Stop Dose Admin Acetaminophen 650 mg 12/05/17 12:27 Tylenol 650 Mg Supp RC Q6H PRN Fever >100.4 F Ascorbic Acid 500 mg 11/28/17 11:30 12/14/17 10:11 Vitamin C 500 Mg Tab PO 500 mg DAILY SHIV Administration Bacitracin 1 ea 11/28/17 08:51 11/28/17 09:34 Bacitracin TOP 1 ea Q6 PRN Administration Swelling Clonidine HCl 0.2 mg 12/12/17 10:00 12/14/17 17:56 Catapres PO 0.2 mg BID SHIV Administration Cyproheptadine HCl 4 mg 12/05/17 11:15 12/15/17 04:00 Periactin PO 4 mg Q8H SHIV Administration Docusate Sodium 100 mg 12/05/17 18:00 12/14/17 17:58 Colace Liquid PO Not Given BID SHIV Folic Acid 1 mg 12/01/17 10:15 12/14/17 10:11 Folic Acid PO 1 mg DAILY SHIV Administration Heparin Sodium (Porcine) 5,000 units 12/13/17 22:00 12/14/17 21:13 Heparin SC 5,000 units Q12 SHIV Administration Protocol Hydralazine HCl 10 mg 11/29/17 14:56 12/13/17 04:06 Apresoline IVP 10 mg Q6 PRN Administration give if SBP >160 Hydroxyzine Pamoate 25 mg 12/14/17 15:17 12/14/17 23:10 Vistaril PEG 25 mg Q8H SHIV Administration Protocol Levalbuterol HCl 0.63 mg 12/02/17 09:55 12/14/17 13:53 Xopenex IH 0.63 mg [id number] PRN Administration Shortness of Breath Levetiracetam 750 mg 12/04/17 22:00 12/14/17 21:00 Keppra PO 750 mg Q12 SHIV Administration Lorazepam 2 mg 12/12/17 16:57 12/14/17 04:02 Ativan IVP 2 mg Q4H PRN Administration alcohol withdrawals Protocol Lorazepam 4 mg 12/12/17 17:00 12/15/17 05:08 Ativan PEG 4 mg Q4H SHIV Administration Protocol Multivitamins/Minerals 1 tab 11/29/17 08:00 12/14/17 10:09 Therapeutic-M Tab PO 1 tab 0800 SHIV Administration Pantoprazole Sodium 40 mg 11/22/17 10:00 12/14/17 10:12 Protonix Inj IVP 40 mg DAILY SHIV Administration Polyethylene Glycol 17 gm 12/05/17 18:00 12/14/17 17:58 Miralax PO Not Given BID SHIV Propranolol HCl 40 mg 12/05/17 11:00 12/14/17 18:00 Inderal PO 40 mg BID SHIV Administration Thiamine HCl 100 mg 11/28/17 14:00 12/14/17 17:56 Vitamin B1 Tab PO 100 mg TID SHIV Administration Valproate Sodium 750 mg 12/09/17 22:00 12/14/17 21:11 Depakene Oral Soln PO 750 mg Q12 SHIV Administration - Patient Studies Lab Studies: Lab Studies 12/15/17 12/15/17 12/14/17 Range/Units 05:25 05:25 06:45 WBC 6.2 (4.5-11.0) 10^3/ul RBC 3.28 L (3.5-6.1) 10^6/uL Hgb 9.8 L (14.0-18.0) g/dL Hct 30.0 L (42.0-52.0) % MCV 91.5 (80.0-105.0) fl MCH 29.9 (25.0-35.0) pg MCHC 32.7 (31.0-37.0) g/dl RDW 14.1 (11.5-14.5) % Plt Count 313 (120.0-450.0) 10^3/uL MPV 9.5 (7.0-11.0) fl Gran % 76.2 H (50.0-68.0) % Lymph % (Auto) 14.2 L (22.0-35.0) % [place] % (Auto) 6.1 H (1.0-6.0) % Eos % (Auto) 3.2 (1.5-5.0) % Baso % (Auto) 0.3 (0.0-3.0) % Gran # 4.70 (1.4-6.5) Lymph # (Auto) 0.9 L (1.2-3.4) [place] # (Auto) 0.4 (0.1-0.6) Eos # (Auto) 0.2 (0.0-0.7) Baso # (Auto) 0.02 (0.0-2.0) K/mm3 Sodium 142 (132-148) mmol/L Potassium 3.7 (3.6-5.0) mmol/L Chloride 104 (98-107) mmol/L Carbon Dioxide 29 (21-33) mmol/L Anion Gap 12 (10-20) BUN 10 (7-21) mg/dL Creatinine 0.6 L (0.8-1.5) mg/dl Est GFR ( Amer) > 60 Est GFR (Non-Af Amer) > 60 Random Glucose 131 H (70-110) mg/dL Calcium 8.9 (8.4-10.5) mg/dL Total Bilirubin 0.4 (0.2-1.3) mg/dL AST 28 (17-59) U/L ALT 49 (7-56) U/L Alkaline Phosphatase 58 (38-126) U/L Total Protein 5.3 L (5.8-8.3) g/dL Albumin 2.8 L (3.0-4.8) g/dL Globulin 2.5 gm/dL Albumin/Globulin Ratio 1.1 (1.1-1.8) Valproic Acid < 10 L (50.0-100.0) ug/mL Laboratory Results - last 24 hr 12/14/17 12/15/17 12/15/17 06:45 05:25 05:25 WBC 6.2 RBC 3.28 L Hgb 9.8 L Hct 30.0 L MCV 91.5 MCH 29.9 MCHC 32.7 RDW 14.1 Plt Count 313 MPV 9.5 Gran % 76.2 H Lymph % (Auto) 14.2 L [place] % (Auto) 6.1 H Eos % (Auto) 3.2 Baso % (Auto) 0.3 Gran # 4.70 Lymph # (Auto) 0.9 L [place] # (Auto) 0.4 Eos # (Auto) 0.2 Baso # (Auto) 0.02 Sodium 142 Potassium 3.7 Chloride 104 Carbon Dioxide 29 Anion Gap 12 BUN 10 Creatinine 0.6 L Est GFR ( Amer) > 60 Est GFR (Non-Af Amer) > 60 Random Glucose 131 H Calcium 8.9 Total Bilirubin 0.4 AST 28 ALT 49 Alkaline Phosphatase 58 Total Protein 5.3 L Albumin 2.8 L Globulin 2.5 Albumin/Globulin Ratio 1.1 Valproic Acid < 10 L Fingerstick Blood Sugar Results: 111 Review of Systems - Review of Systems Systems not reviewed;Unavailable: Altered Mental Status Critical Care Progress Note - Ventilator Checklist Head of Bed 30 Degrees: Yes Daily Sedation Vacation: Yes Daily Assessment of Readiness to Wean: Yes Daily Spontaneous Breathing Trial: Yes PUD Prophalyxis: Yes DVT Prophylaxis: Yes Oral Care with Chlorhexidine Gluconate {CHG}: Yes - Vent Settings MODE:: PRVC - Extremities/Vascular Does the Patient have a Central Venous Catheter?: Yes (PICC ) Does the Patient need a Central Venous Catheter?: Yes Does the Patient have a Mackenzie Catheter?: Yes Does the Patient need a Mackenzie Catheter?: Yes - Prophylaxis GI Prophylaxis GI: PPI - Prophylaxis DVT Prophylaxis DVT: Heparin SQ, SCDs Assessment/Plan - Assessment and Plan (Free Text) Assessment: 62yo M with PMHx of Bipolar disorder and ETOH abuse in ICU for DTs 2/2 ETOH withdrawal and inability to wean off vent. Patient initially admitted to psych for suicidal ideation then transferred to in-patient due to severe ETOH withdrawal with DTs requiring high-dose sedation and intubation. Rhabdomyolysis was also noted, but has resolved. CXR showed RLL consolidation, and patient complete 8 day course of antibiotics for HCAP and sinusitis seen on imaging. s/ p Trach and PEG tube. Patient has failed 3 pressure support trials and we will attempt again today. Patient is off sedation, and seems to be more awake and responsive today. Plan: Neuro: - off sedation and is more awake and responsive - Ativan SHIV and PRN per Psych's recommendations, not requiring PRN's overnight - cont Clonidine - will cont on Propranolol and Cyptohepatadine for tremor, monitor for changes - continue thiamine, folic acid and multivitamin supplements - Neuro consulted- will discuss with them today if any meds need to be modified - 2 EEG's have been unremarkable so far; repeat EEG pending read - MRI brain showed persistent b/l maxially, ethomoid and sphoenoid sinusitis w/ mastoid effusions - Keppra 750mg BID and Depakote 750mg BID for seizure precautions; neuro managing changes - VPA level was sub-therapeutic, neuro for recs - Continue CIWA protocol, seizure precaution, aspiration precaution Cardio: - HD stable - Maintain MAP> 65mmHg - Hydralazine PRN for BP control - cont Propranolol Pulm: - s/p tracheostomy by ENT team - Patient failed 3 pressure support trials due to high rapid shallow breathing index and required to be placed back on PRVC; will attempt again today and daily - Protective lung ventilation strategy, HOB elevated, daily oral care, and aspiration precautions, DVT and GI ppx, as well as daily attempts to wean off vent - Xopenex PRN - Patient has completed 8 day course of Meropenem and Vancomycin as well as tobramycin inhaled for sinusitis and possible RLL pneumonia - currently off antibiotics per ID recs - Maintain spO2>90% GI: - cont PEG tube feeds - Thiamine, Folic acid, and MV for ETOH withdrawal and DTs - PPI for GI ppx - s/p PEG by GI team Heme: - Hgb stable - platelets stable - monitor H/H daily Nephro: - Will continue to monitor electrolytes and replace as needed - Continue to monitor I&O Endo: - stable blood glucose levels - maintain euglycemia ID: - has been afebrile; blood cultures and UA negative. prior fevers likely 2/2 DT' s - off antibiotics; completed 8 days of Meropenem, Vancomycin and Tobramycin inhaled for sinusitis and HCAP - Bacitracin, Zinc, MV and vit C for skin - ID consulted- recs appreciated - PICC line in place Psych: - Hx of Bipolar - Psych consulted- recs appreciated - will evaluate once off of sedation - Consent for trach and PICC line obtained by Dr. Velez on 12/05 with family members over phone; consent for PEG obtained by GI team GI ppx: Protonix DVT ppx: Heparin SC and SCDs Diet: Tube feeds per PEG tube Dispo: Plan for LTAC per SW. Patient is off sedation but failed pressure support trials on trach; will attempt to wean daily. Patient was seen, examined, and discussed with attending, Dr. Dilan Traore PGY1 Pager [phone] <Cooper Kong - Last Filed: 12/15/17 11:08> CCU Objective - Vital Signs / Intake & Output Vital Signs (Last 4 hours): Vital Signs Pulse Resp BP Pulse Ox 12/15/17 09:18 92 H 132/85 12/15/17 09:17 92 H 132/85 12/15/17 07:35 38 H 100 Intake and Output (Last 8hrs): Intake & Output 12/14/17 12/15/17 12/15/17 22:59 06:59 14:59 Intake Total 1800 1880 Output Total 1900 1300 Balance -100 580 Intake: Tube Feeding 600 680 Other 1200 1200 Output: Urine 1900 1300 Urethral (Mackenzie) 1900 1300 Other: # Bowel Movements 0 - Medications Active Medications: Active Medications Generic Name Dose Route Start Last Admin Trade Name Freq PRN Reason Stop Dose Admin Acetaminophen 650 mg 12/05/17 12:27 Tylenol 650 Mg Supp RC Q6H PRN Fever >100.4 F Ascorbic Acid 500 mg 11/28/17 11:30 12/15/17 09:19 Vitamin C 500 Mg Tab PO 500 mg DAILY SHIV Administration Bacitracin 1 ea 11/28/17 08:51 11/28/17 09:34 Bacitracin TOP 1 ea Q6 PRN Administration Swelling Clonidine HCl 0.2 mg 12/12/17 10:00 12/15/17 09:18 Catapres PO 0.2 mg BID SHIV Administration Cyproheptadine HCl 4 mg 12/05/17 11:15 12/15/17 04:00 Periactin PO 4 mg Q8H SHIV Administration Docusate Sodium 100 mg 12/05/17 18:00 12/15/17 09:17 Colace Liquid PO 100 mg BID SHIV Administration Folic Acid 1 mg 12/01/17 10:15 12/15/17 09:19 Folic Acid PO 1 mg DAILY SHIV Administration Heparin Sodium (Porcine) 5,000 units 12/13/17 22:00 12/15/17 09:16 Heparin SC 5,000 units Q12 SHIV Administration Protocol Hydralazine HCl 10 mg 11/29/17 14:56 12/13/17 04:06 Apresoline IVP 10 mg Q6 PRN Administration give if SBP >160 Hydroxyzine Pamoate 25 mg 12/14/17 15:17 12/15/17 07:05 Vistaril PEG 25 mg Q8H SHIV Administration Protocol Levalbuterol HCl 0.63 mg 12/02/17 09:55 12/15/17 07:34 Xopenex IH 0.63 mg [id number] PRN Administration Shortness of Breath Levetiracetam 750 mg 12/04/17 22:00 12/15/17 09:15 Keppra PO 750 mg Q12 SHIV Administration Lorazepam 4 mg 12/12/17 17:00 12/15/17 05:08 Ativan PEG 4 mg Q4H SHIV Administration Protocol Lorazepam 1 mg 12/15/17 10:52 Ativan IVP BID PRN alcohol withdrawals Protocol Multivitamins/Minerals 1 tab 11/29/17 08:00 12/15/17 09:18 Therapeutic-M Tab PO 1 tab 0800 SHIV Administration Pantoprazole Sodium 40 mg 11/22/17 10:00 12/15/17 09:16 Protonix Inj IVP 40 mg DAILY SHIV Administration Polyethylene Glycol 17 gm 12/05/17 18:00 12/15/17 09:19 Miralax PO 17 gm BID SHIV Administration Propranolol HCl 40 mg 12/05/17 11:00 12/15/17 09:17 Inderal PO 40 mg BID SHIV Administration Thiamine HCl 100 mg 11/28/17 14:00 12/15/17 09:18 Vitamin B1 Tab PO 100 mg TID SHIV Administration Valproate Sodium 1,000 mg 12/15/17 10:00 Depakene Oral Soln PO Q12 SHIV - Patient Studies Lab Studies: Lab Studies 12/15/17 12/15/17 Range/Units 05:25 05:25 WBC 6.2 (4.5-11.0) 10^3/ul RBC 3.28 L (3.5-6.1) 10^6/uL Hgb 9.8 L (14.0-18.0) g/dL Hct 30.0 L (42.0-52.0) % MCV 91.5 (80.0-105.0) fl MCH 29.9 (25.0-35.0) pg MCHC 32.7 (31.0-37.0) g/dl RDW 14.1 (11.5-14.5) % Plt Count 313 (120.0-450.0) 10^3/uL MPV 9.5 (7.0-11.0) fl Gran % 76.2 H (50.0-68.0) % Lymph % (Auto) 14.2 L (22.0-35.0) % [place] % (Auto) 6.1 H (1.0-6.0) % Eos % (Auto) 3.2 (1.5-5.0) % Baso % (Auto) 0.3 (0.0-3.0) % Gran # 4.70 (1.4-6.5) Lymph # (Auto) 0.9 L (1.2-3.4) [place] # (Auto) 0.4 (0.1-0.6) Eos # (Auto) 0.2 (0.0-0.7) Baso # (Auto) 0.02 (0.0-2.0) K/mm3 Sodium 142 (132-148) mmol/L Potassium 3.7 (3.6-5.0) mmol/L Chloride 104 (98-107) mmol/L Carbon Dioxide 29 (21-33) mmol/L Anion Gap 12 (10-20) BUN 10 (7-21) mg/dL Creatinine 0.6 L (0.8-1.5) mg/dl Est GFR ( Amer) > 60 Est GFR (Non-Af Amer) > 60 Random Glucose 131 H (70-110) mg/dL Calcium 8.9 (8.4-10.5) mg/dL Total Bilirubin 0.4 (0.2-1.3) mg/dL AST 28 (17-59) U/L ALT 49 (7-56) U/L Alkaline Phosphatase 58 (38-126) U/L Total Protein 5.3 L (5.8-8.3) g/dL Albumin 2.8 L (3.0-4.8) g/dL Globulin 2.5 gm/dL Albumin/Globulin Ratio 1.1 (1.1-1.8) Laboratory Results - last 24 hr 12/15/17 12/15/17 05:25 05:25 WBC 6.2 RBC 3.28 L Hgb 9.8 L Hct 30.0 L MCV 91.5 MCH 29.9 MCHC 32.7 RDW 14.1 Plt Count 313 MPV 9.5 Gran % 76.2 H Lymph % (Auto) 14.2 L [place] % (Auto) 6.1 H Eos % (Auto) 3.2 Baso % (Auto) 0.3 Gran # 4.70 Lymph # (Auto) 0.9 L [place] # (Auto) 0.4 Eos # (Auto) 0.2 Baso # (Auto) 0.02 Sodium 142 Potassium 3.7 Chloride 104 Carbon Dioxide 29 Anion Gap 12 BUN 10 Creatinine 0.6 L Est GFR ( Amer) > 60 Est GFR (Non-Af Amer) > 60 Random Glucose 131 H Calcium 8.9 Total Bilirubin 0.4 AST 28 ALT 49 Alkaline Phosphatase 58 Total Protein 5.3 L Albumin 2.8 L Globulin 2.5 Albumin/Globulin Ratio 1.1 Assessment/Plan - Assessment and Plan (Free Text) Assessment: Pt seen and examined on rounds with resident, agree with note with following additions/exceptions: 62yo male with PMHx of heavy EtOH abuse a/w EtOH withdrawal, DTs, was intubated , now s/p trach/PEG. Patient with improved confusion, opens eyes but does not follow commands. Very difficult to wean off ventilator 2/2 poor mental status, fails daily CPAP trials. Off Precedex drip. Awaiting LTach. Delirium Tremens Alcohol Withdrawal Dehydration AMS Rhabdo, resolved ?Serotonin Syndrome Recommend: - cont with ventilatory support, daily cpap trials - monitor off Abx - IVF hydration - Thiamine, Folic, MVT - cont with Keppra - Periactin as per Neuro - Ativan IV PRN - follow up Psych - follow up Neuro - Feeds - GI ppx - DVT ppx - patient requires LTACH
[2017-12-15] MEDS: Levalbuterol 0.63 MG/3 ML Inhal Soln UD IH PRN ×3 (07:34→21:04)
--- NOTE | 2017-12-15 09:12 | RAD ---
HISTORY: ICU eval COMPARISON: 12/14/2017 FINDINGS: LUNGS: No active pulmonary disease. PLEURA: No significant pleural effusion identified, no pneumothorax apparent. CARDIOVASCULAR: There is improvement in the vascular congestion seen previously OSSEOUS STRUCTURES: No significant abnormalities. VISUALIZED UPPER ABDOMEN: Normal. OTHER FINDINGS: None. IMPRESSION: No active disease.
[2017-12-15] MEDS: levETIRAcetam 500 mg/5ml UD cups PO SCH ×2 (09:15→21:10)
[2017-12-15] MEDS: Valproic Acid 250 mg/5 ml UD Cup PO SCH ×3 (09:17→22:31)
[2017-12-15] MEDS: Multivitamin With Minerals Tab PO SCH (09:18)
[2017-12-15] MEDS: POLYETHYLENE GLYCOL 3350 17 GM/Dose PACKET PO SCH ×2 (09:19→19:03)
--- NOTE | 2017-12-15 09:42 | CP.PCM.PN ---
Subjective - Date & Time of Evaluation Date of Evaluation: 12/15/17 Time of Evaluation: 07:00 - Subjective Subjective: Neurology progress note: Pt seen and examined at bedside. No acute events overnight. Pt is s/p trach and peg. He is on Ativan scheduled and PRN. Opening his eyes spontaneously. Not following commands. 12 Point ROS limited due to Trach Objective - Vital Signs/Intake and Output Vital Signs (last 24 hours): Temp Pulse Resp BP Pulse Ox 98.3 F 92 H 38 H 132/85 100 12/15/17 04:00 12/15/17 09:18 12/15/17 07:35 12/15/17 09:18 12/15/17 07:35 Intake and Output: 12/15/17 12/15/17 06:59 18:59 Intake Total 1880 Output Total 1300 Balance 580 - Medications Medications: Current Medications Acetaminophen (Tylenol 650 Mg Supp) 650 mg RC Q6H PRN PRN Reason: Fever >100.4 F Ascorbic Acid (Vitamin C 500 Mg Tab) 500 mg PO DAILY [facility] Last Admin: 12/15/17 09:19 Dose: 500 mg Bacitracin (Bacitracin) 1 ea TOP Q6 PRN PRN Reason: Swelling Last Admin: 11/28/17 09:34 Dose: 1 ea Clonidine HCl (Catapres) 0.2 mg PO BID [facility] Last Admin: 12/15/17 09:18 Dose: 0.2 mg Cyproheptadine HCl (Periactin) 4 mg PO Q8H [facility] Last Admin: 12/15/17 04:00 Dose: 4 mg Docusate Sodium (Colace Liquid) 100 mg PO BID [facility] Last Admin: 12/15/17 09:17 Dose: 100 mg Folic Acid (Folic Acid) 1 mg PO DAILY [facility] Last Admin: 12/15/17 09:19 Dose: 1 mg Heparin Sodium (Porcine) (Heparin) 5,000 units SC Q12 LOBO PRN Reason: Protocol Last Admin: 12/15/17 09:16 Dose: 5,000 units Hydralazine HCl (Apresoline) 10 mg IVP Q6 PRN PRN Reason: give if SBP >160 Last Admin: 12/13/17 04:06 Dose: 10 mg Hydroxyzine Pamoate (Vistaril) 25 mg PEG Q8H [facility] PRN Reason: Protocol Last Admin: 12/15/17 07:05 Dose: 25 mg Levalbuterol HCl (Xopenex) 0.63 mg IH [id number] PRN PRN Reason: Shortness of Breath Last Admin: 12/15/17 07:34 Dose: 0.63 mg Levetiracetam (Keppra) 750 mg PO Q12 [facility] Last Admin: 12/15/17 09:15 Dose: 750 mg Lorazepam (Ativan) 2 mg IVP Q4H PRN; Protocol PRN Reason: alcohol withdrawals Last Admin: 12/15/17 08:33 Dose: 2 mg Lorazepam (Ativan) 4 mg PEG Q4H LOBO PRN Reason: Protocol Last Admin: 12/15/17 05:08 Dose: 4 mg Multivitamins/Minerals (Therapeutic-M Tab) 1 tab PO 0800 [facility] Last Admin: 12/15/17 09:18 Dose: 1 tab Pantoprazole Sodium (Protonix Inj) 40 mg IVP DAILY [facility] Last Admin: 12/15/17 09:16 Dose: 40 mg Polyethylene Glycol (Miralax) 17 gm PO BID [facility] Last Admin: 12/15/17 09:19 Dose: 17 gm Propranolol HCl (Inderal) 40 mg PO BID [facility] Last Admin: 12/15/17 09:17 Dose: 40 mg Thiamine HCl (Vitamin B1 Tab) 100 mg PO TID [facility] Last Admin: 12/15/17 09:18 Dose: 100 mg Valproate Sodium (Depakene Oral Soln) 750 mg PO Q12 [facility] Last Admin: 12/15/17 09:17 Dose: 750 mg - Labs Labs: 12/15/17 05:25 12/15/17 05:25 PT 15.4 SECONDS (9.4-12.5) H 12/10/17 07:00 INR 1.33 (0.93-1.08) H 12/10/17 07:00 - Constitutional Appears: No Acute Distress - Eye Exam Eye Exam: PERRL Pupil Exam: NORMAL ACCOMODATION - Neurological Exam Neuro motor strength exam: Left Upper Extremity: 3, Right Upper Extremity: 3, Left Lower Extremity: 3, Right Lower Extremity: 3 Assessment and Plan - Assessment and Plan (Free Text) Assessment: 62yo M with PMHx of Bipolar disorder and ETOH abuse in ICU for DTs requiring intubation and sedation. EEG shows subclinical seizures?, repeat EEG did not show any signs of seizures. S/p Trach and peg. - EEG ordered to r/o seizures - Inc Depakote 750mg BID to 1000mg Q12 - Cont Keppra 750mg Q12 - Cont Ativan lobo and prn for agitation - Seizure precautions - Continue antibiotics as per ID - Blood pressure control - Maintain blood sugars 140-180 - Cont management as per ICU Case and plan was reviewed and discussed in detail with Dr Ingram.
--- NOTE | 2017-12-15 11:38 | CP.PCM.PN ---
Subjective - Date & Time of Evaluation Date of Evaluation: 12/15/17 Time of Evaluation: 06:00 - Subjective Subjective: Patient seen and evauated bedside in ICU. Patient was sleeping when examined. Patient opened eyes to his name being called. followed simple commands like close eyes and open the. Full ROS unobtainable. Objective - Vital Signs/Intake and Output Vital Signs (last 24 hours): Temp Pulse Resp BP Pulse Ox 98.3 F 92 H 38 H 132/85 100 12/15/17 04:00 12/15/17 09:18 12/15/17 07:35 12/15/17 09:18 12/15/17 07:35 Intake and Output: 12/15/17 12/15/17 06:59 18:59 Intake Total 1880 Output Total 1300 Balance 580 - Medications Medications: Current Medications Acetaminophen (Tylenol 650 Mg Supp) 650 mg RC Q6H PRN PRN Reason: Fever >100.4 F Ascorbic Acid (Vitamin C 500 Mg Tab) 500 mg PO DAILY [facility] Last Admin: 12/15/17 09:19 Dose: 500 mg Bacitracin (Bacitracin) 1 ea TOP Q6 PRN PRN Reason: Swelling Last Admin: 11/28/17 09:34 Dose: 1 ea Clonidine HCl (Catapres) 0.2 mg PO BID [facility] Last Admin: 12/15/17 09:18 Dose: 0.2 mg Cyproheptadine HCl (Periactin) 4 mg PO Q8H [facility] Last Admin: 12/15/17 04:00 Dose: 4 mg Docusate Sodium (Colace Liquid) 100 mg PO BID [facility] Last Admin: 12/15/17 09:17 Dose: 100 mg Folic Acid (Folic Acid) 1 mg PO DAILY [facility] Last Admin: 12/15/17 09:19 Dose: 1 mg Heparin Sodium (Porcine) (Heparin) 5,000 units SC Q12 [facility] PRN Reason: Protocol Last Admin: 12/15/17 09:16 Dose: 5,000 units Hydralazine HCl (Apresoline) 10 mg IVP Q6 PRN PRN Reason: give if SBP >160 Last Admin: 12/13/17 04:06 Dose: 10 mg Hydroxyzine Pamoate (Vistaril) 25 mg PEG Q8H [facility] PRN Reason: Protocol Last Admin: 12/15/17 07:05 Dose: 25 mg Levalbuterol HCl (Xopenex) 0.63 mg IH [id number] PRN PRN Reason: Shortness of Breath Last Admin: 12/15/17 07:34 Dose: 0.63 mg Levetiracetam (Keppra) 750 mg PO Q12 [facility] Last Admin: 12/15/17 09:15 Dose: 750 mg Lorazepam (Ativan) 4 mg PEG Q4H [facility] PRN Reason: Protocol Last Admin: 12/15/17 05:08 Dose: 4 mg Lorazepam (Ativan) 1 mg IVP BID PRN; Protocol PRN Reason: alcohol withdrawals Multivitamins/Minerals (Therapeutic-M Tab) 1 tab PO 0800 [facility] Last Admin: 12/15/17 09:18 Dose: 1 tab Pantoprazole Sodium (Protonix Inj) 40 mg IVP DAILY [facility] Last Admin: 12/15/17 09:16 Dose: 40 mg Polyethylene Glycol (Miralax) 17 gm PO BID [facility] Last Admin: 12/15/17 09:19 Dose: 17 gm Propranolol HCl (Inderal) 40 mg PO BID [facility] Last Admin: 12/15/17 09:17 Dose: 40 mg Thiamine HCl (Vitamin B1 Tab) 100 mg PO TID [facility] Last Admin: 12/15/17 09:18 Dose: 100 mg Valproate Sodium (Depakene Oral Soln) 1,000 mg PO Q12 [facility] - Labs Labs: 12/15/17 05:25 12/15/17 05:25 PT 15.4 SECONDS (9.4-12.5) H 12/10/17 07:00 INR 1.33 (0.93-1.08) H 12/10/17 07:00 - Constitutional Appears: No Acute Distress - Head Exam Head Exam: ATRAUMATIC, NORMAL INSPECTION, NORMOCEPHALIC - Eye Exam Eye Exam: Normal appearance - ENT Exam ENT Exam: Mucous Membranes Moist - Neck Exam Additional comments: PEG and Trach tube in place - Respiratory Exam Respiratory Exam: Clear to Ausculation Bilateral Additional comments: Pstient on Vent - Cardiovascular Exam Cardiovascular Exam: REGULAR RHYTHM - GI/Abdominal Exam GI & Abdominal Exam: Soft - Extremities Exam Extremities Exam: Normal Inspection - Neurological Exam Neurological Exam: Altered, Awake. absent: Oriented x3 - Skin Skin Exam: Normal Color, Warm Assessment and Plan - Assessment and Plan (Free Text) Assessment: 62 year old male with PMHx of Bipolar disorder and ETOH abuse in ICU for DTs. Patient initially admitted to psych for suicidal ideation then transferred to in -patient due to severe ETOH withdrawal with DTs requiring high-dose sedation and intubation. Subclinical seizure noted on EEG performed on 11/30/17. Fevers likely due to DTs versus developing RLL consolidation and pleural effusion seen on CXR. Repeat EEG showing artifact likely from hand tremors. Patient's sister Bindu Ashton ([phone]) was able to get in touch with the critical care team and advocate for PEG placement, and she will be the healthcare proxy from this point forward. PEG placed on 12/09/17, and trach placed on 12/11/17. Patient failed weaning off of ventilation for three days now after his trach placement. Possible additional trial today. Plan: 1. ETOH withdrawal with Delirium Tremens - Trached and on ventilator support. Vent settings as follows: 50% FiO2, PEEP 5 , Tidal Volume 400, Respiratory rate 18 - Neuro consulted- recs appreciated - Continue CIWA protocol, seizure precaution, aspiration precaution - Head CT negative for acute pathology - repeat EEG ordered to rule out seizures - IV Depakote (increased 750mg BID to 1000mg Q12 ) and Keppra on board for seizure prophylaxis and mood stabilization - MRI brain showed persistent bilateral maxially, ethomoid and sphenoid sinusitis with mastoid effusions - Ativan 4 mg PEG Q4H [facility] and 2 mg IV Q4 prn - One dose of Vistaril was given on 12/14/17 in attempt to improve patient's agitation -cyproheptadine and propanolol for tremors 2. Altered Mental Status, currently being sedated for DT's - CT head was unremarkable - Continue thiamine TID - pending repeat EEG - Per neurology, agitation possibly manifestation of patient's psychiatric illnesses. Seroquel was started and mood stabilizers were increased in dosages. 3. Right lower lobe consolidations secondary to HCAP - Seen on CXR and worsening, with pleural effusion as well - Possible pneumonia with pleural effusion versus atelectasis - Treated with Merrem and Vancomycin 4. Sinusitis - seen on MRI - Continue to treat with Inhaled Tobramycin 5. Blisters on hands - Multivitamin, vit C and Zinc added - Bacitracin ointment to be applied 6. Rhabdomyolysis - likely secondary to DT's - renal function has not been affected - CPK markedly elevated but is now downtrending - will monitor 7. Fever, suspected due to pneumonia - Possibly secondary to ETOH withdrawals - ID consult, appreciate recs - Currently afebrile - negative Lower Extremity ultrasound - no vegetations seen on echo -Remeron as a cause of suspected but unlikely serotonin syndrome; cyproheptadine and propranolol started 8. Electrolyte imbalance - monitor and replete as needed 9. Transaminitis Due to chronic alcohol abuse, will discuss alcohol cessation with patient once no longer sedated. -improving 10. Prophylaxis - SCDs - Aspiration precautions - Seizure precautions - Heparin SC - Protonix
--- NOTE | 2017-12-15 16:54 | CP.PCM.PN ---
Subjective - Date & Time of Evaluation Date of Evaluation: 12/15/17 Time of Evaluation: 16:42 - Subjective Subjective: Infectious Disease Follow Up: December 15, 2017 62 yo male with medical history that includes Bipolar disorder and alcohol abuse presented with EtOH intoxication and now in withdrawals. Originally in the psych floor for bipolar disease treatment and suicidal ideation on 11/21/2017. The patient required intubation. ID initially called for possible aspiration pneumonia. No fevers, leukocytosis at this time. Remains intubated. Still no fevers or leukocytosis. Remains sedated. Noted blistered skin on right hand that slightly improved. Persistent fevers up to 102.0 F earlier in course of hospitalization but afebrile the last few days.. Still no leukocytosis. Cultures from 11/30/2017 negative. New cultures sent 12/01-. Multiple blisters on the right hand. Fluid filler and dark in color. Would obtain fluid from blisters for culture. Would consider CT of chest/ abdomen/pelvis. Continue on meropenem for antibiotic coverage at this point. Also on inhaled tobramycin and IV Zyvox. No new issues. Difficult extubation. Trach and PEG done. Off sedation and receiving Ativan on a schedule. He opens eyes spontaneously and can follow a few simple commands... stick out tongue and blink eyes for example. Chest X-ray still with patchy infiltrate in right lung and atelectasis. No new issues so far. Objective - Vital Signs/Intake and Output Vital Signs (last 24 hours): Temp Pulse Resp BP Pulse Ox 98.3 F 79 20 99/60 L 100 12/15/17 04:00 12/15/17 14:06 12/15/17 13:00 12/15/17 14:06 12/15/17 14:06 Intake and Output: 12/15/17 12/15/17 06:59 18:59 Intake Total 1880 Output Total 1300 Balance 580 - Medications Medications: Current Medications Acetaminophen (Tylenol 650 Mg Supp) 650 mg RC Q6H PRN PRN Reason: Fever >100.4 F Ascorbic Acid (Vitamin C 500 Mg Tab) 500 mg PO DAILY [facility] Last Admin: 12/15/17 09:19 Dose: 500 mg Bacitracin (Bacitracin) 1 ea TOP Q6 PRN PRN Reason: Swelling Last Admin: 11/28/17 09:34 Dose: 1 ea Clonidine HCl (Catapres) 0.2 mg PO BID [facility] [place] Last Admin: 12/15/17 09:18 Dose: 0.2 mg Cyproheptadine HCl (Periactin) 4 mg PO Q8H [facility] [place] Last Admin: 12/15/17 13:25 Dose: 4 mg Docusate Sodium (Colace Liquid) 100 mg PO BID [facility] [place] Last Admin: 12/15/17 09:17 Dose: 100 mg Folic Acid (Folic Acid) 1 mg PO DAILY [facility] [place] Last Admin: 12/15/17 09:19 Dose: 1 mg Heparin Sodium (Porcine) (Heparin) 5,000 units SC Q12 [facility] PRN Reason: Protocol Last Admin: 12/15/17 09:16 Dose: 5,000 units Hydralazine HCl (Apresoline) 10 mg IVP Q6 PRN PRN Reason: give if SBP >160 Last Admin: 12/13/17 04:06 Dose: 10 mg Hydroxyzine Pamoate (Vistaril) 25 mg PEG Q8H [facility] PRN Reason: Protocol Last Admin: 12/15/17 07:05 Dose: 25 mg Levalbuterol HCl (Xopenex) 0.63 mg IH [id number] PRN PRN Reason: Shortness of Breath Last Admin: 12/15/17 13:24 Dose: 0.63 mg Levetiracetam (Keppra) 750 mg PO Q12 [facility] [place] Last Admin: 12/15/17 09:15 Dose: 750 mg Lorazepam (Ativan) 4 mg PEG Q4H [facility] PRN Reason: Protocol Last Admin: 12/15/17 13:18 Dose: 4 mg Lorazepam (Ativan) 1 mg IVP BID PRN; Protocol PRN Reason: alcohol withdrawals Multivitamins/Minerals (Therapeutic-M Tab) 1 tab PO 0800 [facility] [place] Last Admin: 12/15/17 09:18 Dose: 1 tab Pantoprazole Sodium (Protonix Inj) 40 mg IVP DAILY [facility] [place] Last Admin: 12/15/17 09:16 Dose: 40 mg Polyethylene Glycol (Miralax) 17 gm PO BID [facility] [place] Last Admin: 12/15/17 09:19 Dose: 17 gm Propranolol HCl (Inderal) 40 mg PO BID [facility] [place] Last Admin: 12/15/17 09:17 Dose: 40 mg Thiamine HCl (Vitamin B1 Tab) 100 mg PO TID [facility] [place] Last Admin: 12/15/17 13:26 Dose: 100 mg Valproate Sodium (Depakene Oral Soln) 1,000 mg PO Q12 [facility] [place] Last Admin: 12/15/17 10:05 Dose: 1,000 mg - Labs Labs: 12/15/17 05:25 12/15/17 05:25 PT 15.4 SECONDS (9.4-12.5) H 12/10/17 07:00 INR 1.33 (0.93-1.08) H 12/10/17 07:00 - Constitutional Appears: Non-toxic, No Acute Distress, Chronically Ill - Head Exam Additional comments: Trach in place. - Eye Exam Eye Exam: EOMI, PERRL Pupil Exam: NORMAL ACCOMODATION, PERRL - ENT Exam ENT Exam: Mucous Membranes Moist, Normal External Ear Exam, TM's Normal Bilaterally - Neck Exam Neck Exam: Full ROM, Normal Inspection - Respiratory Exam Respiratory Exam: Decreased Breath Sounds. absent: Rales, Rhonchi, Wheezes Additional comments: Trach and ventilated. - Cardiovascular Exam Cardiovascular Exam: REGULAR RHYTHM, RRR, +S1, +S2 - GI/Abdominal Exam GI & Abdominal Exam: Soft, Normal Bowel Sounds. absent: Distended, Tenderness - Extremities Exam Extremities Exam: Full ROM, Pedal Edema - Neurological Exam Neurological Exam: Awake Additional comments: Arousable and follow a few commands. - Skin Additional comments: Multiple blisters on the right hand. Fluid filler and dark in color. All the blisters are now burst. Assessment and Plan - Assessment and Plan (Free Text) Assessment: 62 yo male with EtOH abuse. Developed EtOH withdrawal and now required intubation and ventilation. The patient was being evaluated by ID for potential aspiration. The patient is currently on Cefepime and Vancomycin. If aspiration is a significant concern, would either add Flagyl IV or switch Cefepime to Meropenem or Zosyn. Febrile several days ago up to 102 F. Afebrile the last few days. No leukocytosis. No findings on Chest X-ray. Supportive care. Procalcitonin is 0.14 which is low. Noted procalcitonin repeated multiple times and all showing low values. Suggests strongly against bacterial causes but does not rule out viral. More likely secondary to the EtOH withdrawal and Delirium Tremens. Case discussed with team. Off antibiotics now. Will Monitor. Difficult extubation/wean from ventilation. Afebrile. 11/30/2017 cultures negative so far. 12/01/2017 cultures with no specific growth. Afebrile the last few days. Sputum cultures with yeast. Patient is off sedation now. On Ativan on schedule. Patient arousable and can follow some simple commands. Trach and PEG done. Antibiotics completed. Supportive care. No need for further antibiotics. Thank you for allowing me to participate in the care of the patient, we will follow with you.
--- NOTE | 2017-12-15 18:03 | CP.PCM.PCO ---
Physician Communication Note - Physician Communication Note Physician Communication Note: due to high volume of pts, pt will be seen tomorrow, no acute issues
[2017-12-16 06:11] LABS: HEMOGLOBIN 10.6 g/dL (14.0-18.0); MEAN CELL VOLUME 90.1 fl (80.0-105.0); MEAN CORPUSCULAR HEMOGLOBIN 29.9 pg (25.0-35.0); MEAN CORPUSCULAR HGB CONC 33.2 g/dl (31.0-37.0); MEAN PLATELET VOLUME 9.8 fl (7.0-11.0); RBC 3.54 10^6/uL (3.5-6.1); RED CELL DISTRIBUTION WIDTH 13.9 % (11.5-14.5)
--- NOTE | 2017-12-16 07:27 | CP.CCUPN ---
<EugenieSingh - Last Filed: 12/16/17 10:01> CCU Subjective - Physician Review Subjective (Free Text): Singh Traore PGY1 ICU Note for Dr. Kong The patient was seen and examined in ICU. Patient failed CPAP/PS trial once again this morning as rapid shallow breathing index was around 160 and RR went up to 40's. Patient was placed on the vent. He is comfortable and not requiring any STAT or PRN doses of benzos. Overall, he is more awake and opens his eyes spontaneously now, and is able to follow simple commands. Patient remains nonverbal. CCU Objective - Vital Signs / Intake & Output Vital Signs (Last 4 hours): Vital Signs Pulse BP Pulse Ox 12/16/17 06:00 88 100 12/16/17 05:06 97 H 138/89 99 12/16/17 05:00 103 H 100 12/16/17 04:07 91 H 146/102 H 100 12/16/17 04:00 95 H - Physical Exam Physical Exam Limitations: Positive for: Altered Mental Status Head: Positive for: Atraumatic, Normocephalic Pupils: Positive for: PERRL, Sluggish Conjunctiva: Negative for: Injected Neck: Positive for: Other (s/p tracheostomy). Negative for: JVD Respiratory/Chest: Positive for: Clear to Auscultation, Good Air Exchange, Other (on vent). Negative for: Respiratory Distress, Accessory Muscle Use, Wheezes, Rales, Retracting, Rhonchi, Tachypneic Cardiovascular: Positive for: Regular Rate and Rhythm, Normal S1, S2. Negative for: Murmurs Abdomen: Positive for: Normal Bowel Sounds, Feeding Tubes, Ostomy Tubes (PEG tube ). Negative for: Tenderness, Distention, Peritoneal Signs, Rebound, Guarding Genitourinary Male: Positive for: Other ([place] catheter in place ) Back: Positive for: Normal Inspection. Negative for: Midline Tenderness Upper Extremity: Positive for: Normal Inspection, NORMAL PULSES, Other (resting right arm tremor at times, RUE rigidity noted; RUE PICC line). Negative for: Cyanosis, Edema Lower Extremity: Positive for: Normal Inspection, NORMAL PULSES. Negative for: Edema Neurological: Positive for: Other (follows simple commands, not sedated, is more awake but lethargic). Negative for: GCS=15, Speech Normal Skin: Positive for: Warm, Normal Color Psychiatric: Negative for: Alert, Oriented x 3, Normal Insight, Normal Concentration - Medications Active Medications: Active Medications Generic Name Dose Route Start Last Admin Trade Name Freq PRN Reason Stop Dose Admin Acetaminophen 650 mg 12/05/17 12:27 Tylenol 650 Mg Supp RC Q6H PRN Fever >100.4 F Ascorbic Acid 500 mg 11/28/17 11:30 12/15/17 09:19 Vitamin C 500 Mg Tab PO 500 mg DAILY SHIV Administration Bacitracin 1 ea 11/28/17 08:51 11/28/17 09:34 Bacitracin TOP 1 ea Q6 PRN Administration Swelling Clonidine HCl 0.2 mg 12/12/17 10:00 12/15/17 19:02 Catapres PO 0.2 mg BID SHIV Administration Cyproheptadine HCl 4 mg 12/05/17 11:15 12/16/17 02:54 Periactin PO 4 mg Q8H SHIV Administration Docusate Sodium 100 mg 12/05/17 18:00 12/15/17 19:02 Colace Liquid PO 100 mg BID SHIV Administration Folic Acid 1 mg 12/01/17 10:15 12/15/17 09:19 Folic Acid PO 1 mg DAILY SHIV Administration Heparin Sodium (Porcine) 5,000 units 12/13/17 22:00 12/15/17 21:10 Heparin SC 5,000 units Q12 SHIV Administration Protocol Hydralazine HCl 10 mg 11/29/17 14:56 12/13/17 04:06 Apresoline IVP 10 mg Q6 PRN Administration give if SBP >160 Hydroxyzine Pamoate 25 mg 12/14/17 15:17 12/15/17 22:31 Vistaril PEG 25 mg Q8H SHIV Administration Protocol Levalbuterol HCl 0.63 mg 12/02/17 09:55 12/15/17 21:04 Xopenex IH 0.63 mg [id number] PRN Administration Shortness of Breath Levetiracetam 750 mg 12/04/17 22:00 12/15/17 21:10 Keppra PO 750 mg Q12 SHIV Administration Lorazepam 4 mg 12/12/17 17:00 12/16/17 05:44 Ativan PEG 4 mg Q4H SHIV Administration Protocol Lorazepam 1 mg 12/15/17 10:52 12/16/17 04:34 Ativan IVP 1 mg BID PRN Administration alcohol withdrawals Protocol Multivitamins/Minerals 1 tab 11/29/17 08:00 12/15/17 09:18 Therapeutic-M Tab PO 1 tab 0800 SHIV Administration Pantoprazole Sodium 40 mg 11/22/17 10:00 12/15/17 09:16 Protonix Inj IVP 40 mg DAILY SHIV Administration Polyethylene Glycol 17 gm 12/05/17 18:00 12/15/17 19:03 Miralax PO 17 gm BID SHIV Administration Propranolol HCl 40 mg 12/05/17 11:00 12/15/17 19:01 Inderal PO 40 mg BID SHIV Administration Thiamine HCl 100 mg 11/28/17 14:00 12/15/17 19:02 Vitamin B1 Tab PO 100 mg TID SHIV Administration Valproate Sodium 1,000 mg 12/15/17 10:00 12/15/17 22:31 Depakene Oral Soln PO 1,000 mg Q12 SHIV Administration - Patient Studies Lab Studies: Lab Studies 12/16/17 Range/Units 06:00 WBC 8.0 D (4.5-11.0) 10^3/ul RBC 3.54 (3.5-6.1) 10^6/uL Hgb 10.6 L (14.0-18.0) g/dL Hct 31.9 L (42.0-52.0) % MCV 90.1 (80.0-105.0) fl MCH 29.9 (25.0-35.0) pg MCHC 33.2 (31.0-37.0) g/dl RDW 13.9 (11.5-14.5) % Plt Count 323 (120.0-450.0) 10^3/uL MPV 9.8 (7.0-11.0) fl Laboratory Results - last 24 hr 12/16/17 06:00 WBC 8.0 D RBC 3.54 Hgb 10.6 L Hct 31.9 L MCV 90.1 MCH 29.9 MCHC 33.2 RDW 13.9 Plt Count 323 MPV 9.8 Fingerstick Blood Sugar Results: 111 Review of Systems - Review of Systems Systems not reviewed;Unavailable: Altered Mental Status Critical Care Progress Note - Ventilator Checklist Head of Bed 30 Degrees: Yes Daily Sedation Vacation: Yes Daily Assessment of Readiness to Wean: Yes Daily Spontaneous Breathing Trial: Yes PUD Prophalyxis: Yes DVT Prophylaxis: Yes Oral Care with Chlorhexidine Gluconate {CHG}: Yes - Vent Settings MODE:: PRVC - Extremities/Vascular Does the Patient have a Central Venous Catheter?: Yes (RUE PICC) Does the Patient need a Central Venous Catheter?: Yes Does the Patient have a Bah Catheter?: No (has [place] catheter ) Does the Patient need a Bah Catheter?: No - Prophylaxis GI Prophylaxis GI: PPI - Prophylaxis DVT Prophylaxis DVT: Heparin SQ, SCDs Assessment/Plan - Assessment and Plan (Free Text) Assessment: 62yo M with PMHx of Bipolar disorder and ETOH abuse in ICU for DTs 2/2 ETOH withdrawal and inability to wean off vent. Patient initially admitted to psych for suicidal ideation then transferred to in-patient due to severe ETOH withdrawal with DTs requiring high-dose sedation and intubation. Rhabdomyolysis was also noted, but has resolved. CXR showed RLL consolidation, and patient completed 8 day course of antibiotics for HCAP and sinusitis and is now off antibiotics. s/p Trach and PEG tube. Patient has failed 5 pressure support trials including today's. Patient is off sedation, and is more awake and responsive today. Plan: Neuro: - off sedation and is more awake and responsive - Ativan SHIV, psych to adjust if needed - Vistaril SHIV - cont Clonidine - will cont on Propranolol and Cyptohepatadine for tremor, monitor for changes - continue thiamine, folic acid and multivitamin supplements - Neuro consulted- will discuss with them today if any meds need to be modified - 2 EEG's have been unremarkable so far; repeat EEG pending read - MRI brain showed persistent b/l maxially, ethomoid and sphoenoid sinusitis w/ mastoid effusions - Keppra 750mg BID and Depakote increased from 750mg BID to 1000mg BID for seizure precautions; neuro managing changes - VPA level was sub-therapeutic, neuro for recs - Continue CIWA protocol, seizure precaution, aspiration precaution Cardio: - HD stable - Maintain MAP> 65mmHg - Hydralazine PRN for BP control - cont Propranolol Pulm: - s/p tracheostomy by ENT team - Patient failed 5 pressure support trials due to high rapid shallow breathing index and required to be placed back on PRVC; will attempt daily - Protective lung ventilation strategy, HOB elevated, daily oral care, and aspiration precautions, DVT and GI ppx, as well as daily attempts to wean off vent - Xopenex PRN - Patient has completed 8 day course of Meropenem and Vancomycin as well as tobramycin inhaled for sinusitis and possible RLL pneumonia - currently off antibiotics per ID recs - Maintain spO2>90% GI: - cont PEG tube feeds - Thiamine, Folic acid, and MV for ETOH withdrawal and DTs - PPI for GI ppx - s/p PEG by GI team Heme: - Hgb stable - platelets stable - monitor H/H daily Nephro: - Will continue to monitor electrolytes and replace as needed - Continue to monitor I&O Endo: - stable blood glucose levels - maintain euglycemia ID: - has been afebrile; blood cultures and UA negative. prior fevers likely 2/2 DT' s - off antibiotics; completed 8 days of Meropenem, Vancomycin and Tobramycin inhaled for sinusitis and HCAP - Bacitracin, Zinc, MV and vit C for skin - ID consulted- recs appreciated - PICC line in place Psych: - Hx of Bipolar - Psych consulted- recs appreciated - will evaluate per note - Consent for trach and PICC line obtained by Dr. Velez on 12/05 with family members over phone; consent for PEG obtained by GI team GI ppx: Protonix DVT ppx: Heparin SC and SCDs Diet: Tube feeds per PEG tube Dispo: Plan for LTAC per SW. Patient is off sedation but failed pressure support trials on trach; will attempt to wean daily. Patient was seen, examined, and discussed with attending, Dr. Dilan Traore PGY1 Pager [phone] <Cooper Kong - Last Filed: 12/16/17 11:09> CCU Objective - Medications Active Medications: Active Medications Generic Name Dose Route Start Last Admin Trade Name Freq PRN Reason Stop Dose Admin Acetaminophen 650 mg 12/05/17 12:27 Tylenol 650 Mg Supp RC Q6H PRN Fever >100.4 F Ascorbic Acid 500 mg 11/28/17 11:30 12/15/17 09:19 Vitamin C 500 Mg Tab PO 500 mg DAILY SHIV Administration Bacitracin 1 ea 11/28/17 08:51 02/09/18 09:34 Bacitracin TOP 1 ea Q6 PRN Administration Swelling Clonidine HCl 0.2 mg 12/12/17 10:00 12/15/17 19:02 Catapres PO 0.2 mg BID SHIV Administration Cyproheptadine HCl 4 mg 12/05/17 11:15 12/16/17 02:54 Periactin PO 4 mg Q8H SHIV Administration Docusate Sodium 100 mg 12/05/17 18:00 12/15/17 19:02 Colace Liquid PO 100 mg BID SHIV Administration Folic Acid 1 mg 12/01/17 10:15 12/15/17 09:19 Folic Acid PO 1 mg DAILY SHIV Administration Heparin Sodium (Porcine) 5,000 units 12/13/17 22:00 12/15/17 21:10 Heparin SC 5,000 units Q12 SHIV Administration Protocol Hydralazine HCl 10 mg 11/29/17 14:56 12/13/17 04:06 Apresoline IVP 10 mg Q6 PRN Administration give if SBP >160 Hydroxyzine Pamoate 25 mg 12/14/17 15:17 12/15/17 22:31 Vistaril PEG 25 mg Q8H SHIV Administration Protocol Levalbuterol HCl 0.63 mg 12/02/17 09:55 12/15/17 21:04 Xopenex IH 0.63 mg [id number] PRN Administration Shortness of Breath Levetiracetam 750 mg 12/04/17 22:00 12/15/17 21:10 Keppra PO 750 mg Q12 SHIV Administration Lorazepam 4 mg 12/12/17 17:00 12/16/17 05:44 Ativan PEG 4 mg Q4H SHIV Administration Protocol Multivitamins/Minerals 1 tab 11/29/17 08:00 12/15/17 09:18 Therapeutic-M Tab PO 1 tab 0800 SHIV Administration Pantoprazole Sodium 40 mg 11/22/17 10:00 12/15/17 09:16 Protonix Inj IVP 40 mg DAILY SHIV Administration Polyethylene Glycol 17 gm 12/05/17 18:00 12/15/17 19:03 Miralax PO 17 gm BID SHIV Administration Propranolol HCl 40 mg 12/05/17 11:00 12/15/17 19:01 Inderal PO 40 mg BID SHIV Administration Thiamine HCl 100 mg 11/28/17 14:00 12/15/17 19:02 Vitamin B1 Tab PO 100 mg TID SHIV Administration Valproate Sodium 1,000 mg 12/15/17 10:00 12/15/17 22:31 Depakene Oral Soln PO 1,000 mg Q12 SHIV Administration - Patient Studies Lab Studies: Lab Studies 12/16/17 12/16/17 Range/Units 06:00 06:00 WBC 8.0 D (4.5-11.0) 10^3/ul RBC 3.54 (3.5-6.1) 10^6/uL Hgb 10.6 L (14.0-18.0) g/dL Hct 31.9 L (42.0-52.0) % MCV 90.1 (80.0-105.0) fl MCH 29.9 (25.0-35.0) pg MCHC 33.2 (31.0-37.0) g/dl RDW 13.9 (11.5-14.5) % Plt Count 323 (120.0-450.0) 10^3/uL MPV 9.8 (7.0-11.0) fl Sodium 142 (132-148) mmol/L Potassium 4.3 (3.6-5.0) mmol/L Chloride 103 (98-107) mmol/L Carbon Dioxide 33 (21-33) mmol/L Anion Gap 10 (10-20) BUN 10 (7-21) mg/dL Creatinine 0.7 L (0.8-1.5) mg/dl Est GFR ( Amer) > 60 Est GFR (Non-Af Amer) > 60 Random Glucose 109 (70-110) mg/dL Calcium 9.3 (8.4-10.5) mg/dL Total Bilirubin 0.6 (0.2-1.3) mg/dL AST 48 (17-59) U/L ALT 54 (7-56) U/L Alkaline Phosphatase 67 (38-126) U/L Total Protein 5.8 (5.8-8.3) g/dL Albumin 3.1 (3.0-4.8) g/dL Globulin 2.7 gm/dL Albumin/Globulin Ratio 1.2 (1.1-1.8) Laboratory Results - last 24 hr 12/16/17 12/16/17 06:00 06:00 WBC 8.0 D RBC 3.54 Hgb 10.6 L Hct 31.9 L MCV 90.1 MCH 29.9 MCHC 33.2 RDW 13.9 Plt Count 323 MPV 9.8 Sodium 142 Potassium 4.3 Chloride 103 Carbon Dioxide 33 Anion Gap 10 BUN 10 Creatinine 0.7 L Est GFR ( Amer) > 60 Est GFR (Non-Af Amer) > 60 Random Glucose 109 Calcium 9.3 Total Bilirubin 0.6 AST 48 ALT 54 Alkaline Phosphatase 67 Total Protein 5.8 Albumin 3.1 Globulin 2.7 Albumin/Globulin Ratio 1.2 Assessment/Plan - Assessment and Plan (Free Text) Assessment: Pt seen and examined on rounds with resident, agree with note with following additions/exceptions: 62yo male with PMHx of heavy EtOH abuse a/w EtOH withdrawal, DTs, was intubated , now s/p trach/PEG. Patient with improved confusion, opens eyes but does not follow commands. Yesterday was OOB to chair. Very difficult to wean off ventilator 2/2, fails daily CPAP trials, becomes tachypneic, RSBI 150s. Off Precedex drip. Awaiting LTach. Delirium Tremens Alcohol Withdrawal Dehydration AMS ?Serotonin Syndrome Recommend: - cont with ventilatory support, daily cpap trials - monitor off Abx - IVF hydration - Thiamine, Folic, MVT - cont with Keppra - Ativan IV PRN - follow up Psych - follow up Neuro - Feeds - GI ppx - DVT ppx - patient requires LTACH
[2017-12-16 07:51] LABS: ALB/GLOB RATIO 1.2 (1.1-1.8); ALBUMIN 3.1 g/dL (3.0-4.8); ALT/SGPT 54 U/L (7-56); AST/SGOT 48 U/L (17-59); BLOOD UREA NITROGEN 10 mg/dL (7-21); CALCIUM 9.3 mg/dL (8.4-10.5); GFR AFRICAN-AMERICAN > 60; GFR NON-AFRICAN AMERICAN > 60
[2017-12-16] MEDS: Multivitamin With Minerals Tab PO SCH (09:10)
[2017-12-16] MEDS: levETIRAcetam 500 mg/5ml UD cups PO SCH ×2 (10:51→21:29)
[2017-12-16] MEDS: Valproic Acid 250 mg/5 ml UD Cup PO SCH ×2 (10:52→21:29)
[2017-12-16] MEDS: POLYETHYLENE GLYCOL 3350 17 GM/Dose PACKET PO SCH ×2 (10:52→18:22)
--- NOTE | 2017-12-16 11:32 | PN ---
DATE: FOLLOWUP NOTE SUBJECTIVE: The patient will follow Dr. Avelar. There are no changes for the patient's presentation. The patient had tracheostomy. The patient is still lethargic, confused, not able to participate in interview. This service writer advisor involved into the patient's care because the patient has alcohol withdrawal delirium and the patient has history of mental status. This service writer advisor will sign off, but medical team asked this service writer advisor for reevaluation for medication management. The patient is currently on Ativan and this service writer advisor suggested tapering dose of Ativan about 10-15% a day. Over the weekend, the patient does not have any changes with the presentation, moving slowly. The patient is very confused, lethargic, not able to participate in interview. Vital signs seems to be stable. Temperature 97.7, blood pressure is 138/89, pulse is 88. Medications reviewed. Tylenol, vitamin C, bacitracin, Catapres, cyproheptadine, Colace, folic acid, heparin, Vistaril, hydralazine, levalbuterol, Keppra 750 q. 12 hours. The patient is on Ativan 4 mg bag q. 4 hours scheduled and IV push of 1 mg twice a day was discontinued. Multivitamins, Protonix, MiraLax, Inderal, vitamin B1, Depakote 1000 mg twice a day. Labs reviewed. Hematology from today: Hemoglobin 10.6 and hematocrit 31.9. Coagulation reviewed. Chemistry reviewed. AST and ALT within normal limits. The rest within normal limits. This service writer advisor will suggest Depakote level for tomorrow morning. Reports reviewed. MENTAL STATUS EXAMINATION: The patient appears to be confused, lethargic. The patient is not able to participate in interview. The patient just has tracheostomy and PEG tube placement. Not able to provide any history. IMPRESSION: Combination of factors gave the patient multifactorial delirium tremens. The patient has metabolic encephalopathy. At present moment, the patient has tracheostomy, confused. The patient also has history of mental illness, depression, rule out bipolar disorder, alcohol use disorder. PLAN: At present moment, the patient is on 4 mg of Ativan q. 4 hours scheduled. This service writer advisor recommended to decrease the dose of Ativan by 10% a day, not more than that. Continue multivitamins, thiamine and folic acid. Continue other medication and it is up to the medical team. As of now, there are no acute psych issues going on. This service writer advisor will sign off with the recommendation to follow up with psychiatrist in LTAC if the patient will be discharged. The patient also needs to have Depakote level tomorrow, which was ordered. Thank you very much for letting me participate in the care of your patient. Should you have any questions, give me a call back. This service writer advisor will sign off. Lois Trotter MD
--- NOTE | 2017-12-16 12:56 | CP.PCM.PN ---
Subjective - Date & Time of Evaluation Date of Evaluation: 12/16/17 Time of Evaluation: 06:00 - Subjective Subjective: Patient seen and evaluated in the ICU. Patient opened eyes to name, slightly more alert than yesterday. Unable to obtain full ROS. No acute issues overnight. Objective - Vital Signs/Intake and Output Vital Signs (last 24 hours): Temp Pulse Resp BP Pulse Ox 97.7 F 112 H 24 135/89 100 12/15/17 20:00 12/16/17 10:55 12/15/17 20:00 12/16/17 10:55 12/16/17 06:00 - Medications Medications: Current Medications Acetaminophen (Tylenol 650 Mg Supp) 650 mg RC Q6H PRN PRN Reason: Fever >100.4 F Ascorbic Acid (Vitamin C 500 Mg Tab) 500 mg PO DAILY [facility] Last Admin: 12/16/17 10:56 Dose: 500 mg Bacitracin (Bacitracin) 1 ea TOP Q6 PRN PRN Reason: Swelling Last Admin: 11/28/17 09:34 Dose: 1 ea Clonidine HCl (Catapres) 0.2 mg PO BID [facility] Last Admin: 12/16/17 10:55 Dose: 0.2 mg Cyproheptadine HCl (Periactin) 4 mg PO Q8H SHIV Last Admin: 12/16/17 10:55 Dose: 4 mg Docusate Sodium (Colace Liquid) 100 mg PO BID [facility] Last Admin: 12/16/17 10:52 Dose: 100 mg Folic Acid (Folic Acid) 1 mg PO DAILY [facility] Last Admin: 12/16/17 10:56 Dose: 1 mg Heparin Sodium (Porcine) (Heparin) 5,000 units SC Q12 SHIV PRN Reason: Protocol Last Admin: 12/16/17 10:52 Dose: 5,000 units Hydralazine HCl (Apresoline) 10 mg IVP Q6 PRN PRN Reason: give if SBP >160 Last Admin: 12/13/17 04:06 Dose: 10 mg Hydroxyzine Pamoate (Vistaril) 25 mg PEG Q8H SHIV PRN Reason: Protocol Last Admin: 12/16/17 10:55 Dose: 25 mg Levalbuterol HCl (Xopenex) 0.63 mg IH [id number] PRN PRN Reason: Shortness of Breath Last Admin: 12/15/17 21:04 Dose: 0.63 mg Levetiracetam (Keppra) 750 mg PO Q12 [facility] Last Admin: 12/16/17 10:51 Dose: 750 mg Lorazepam (Ativan) 4 mg PEG Q4H [facility] PRN Reason: Protocol Last Admin: 12/16/17 10:54 Dose: 4 mg Multivitamins/Minerals (Therapeutic-M Tab) 1 tab PO 0800 [facility] Last Admin: 12/16/17 09:10 Dose: 1 tab Pantoprazole Sodium (Protonix Inj) 40 mg IVP DAILY [facility] Last Admin: 12/16/17 10:52 Dose: 40 mg Polyethylene Glycol (Miralax) 17 gm PO BID [facility] Last Admin: 12/16/17 10:52 Dose: 17 gm Propranolol HCl (Inderal) 40 mg PO BID [facility] Last Admin: 12/16/17 10:53 Dose: 40 mg Thiamine HCl (Vitamin B1 Tab) 100 mg PO TID [facility] Last Admin: 12/16/17 10:55 Dose: 100 mg Valproate Sodium (Depakene Oral Soln) 1,000 mg PO Q12 [facility] Last Admin: 12/16/17 10:52 Dose: 1,000 mg - Labs Labs: 12/16/17 06:00 12/16/17 06:00 PT 15.4 SECONDS (9.4-12.5) H 12/10/17 07:00 INR 1.33 (0.93-1.08) H 12/10/17 07:00 - Constitutional Appears: No Acute Distress - Head Exam Head Exam: ATRAUMATIC, NORMAL INSPECTION, NORMOCEPHALIC - Eye Exam Eye Exam: Normal appearance, PERRL - ENT Exam ENT Exam: Mucous Membranes Moist - Neck Exam Additional comments: PEG and Trach in place - Respiratory Exam Respiratory Exam: Clear to Ausculation Bilateral Additional comments: on vent - Cardiovascular Exam Cardiovascular Exam: REGULAR RHYTHM - GI/Abdominal Exam GI & Abdominal Exam: Soft - Neurological Exam Neurological Exam: absent: Oriented x3 - Skin Skin Exam: Normal Color, Warm Assessment and Plan - Assessment and Plan (Free Text) Assessment: 62 year old male with PMHx of Bipolar disorder and ETOH abuse in ICU for DTs. Patient initially admitted to psych for suicidal ideation then transferred to in -patient due to severe ETOH withdrawal with DTs requiring high-dose sedation and intubation. Subclinical seizure noted on EEG performed on 11/30/17. Fevers likely due to DTs versus developing RLL consolidation and pleural effusion seen on CXR. Repeat EEG showing artifact likely from hand tremors. Patient's sister Bindu Ashton ([phone]) was able to get in touch with the critical care team and advocate for PEG placement, and she will be the healthcare proxy from this point forward. PEG placed on 12/09/17, and trach placed on 12/11/17. Patient failed weaning off of ventilation for four days now after his trach placement. Plan: 1. ETOH withdrawal with Delirium Tremens - Trached and on ventilator support. Vent settings as follows: 50% FiO2, PEEP 5 , Tidal Volume 400, Respiratory rate 18 - Neuro consulted- recs appreciated - Continue CIWA protocol, seizure precaution, aspiration precaution - Head CT negative for acute pathology - repeat EEG ordered to rule out seizures - IV Depakote and Keppra on board for seizure prophylaxis and mood stabilization - MRI brain showed persistent bilateral maxially, ethomoid and sphenoid sinusitis with mastoid effusions - Ativan 4 mg PEG Q4H SHIV and 2 mg IV Q4 prn - One dose of Vistaril was given on 12/14/17 in attempt to improve patient's agitation -cyproheptadine and propanolol for tremors 2. Altered Mental Status, currently being sedated for DT's - CT head was unremarkable - Continue thiamine TID - pending repeat EEG - Per neurology, agitation possibly manifestation of patient's psychiatric illnesses. Seroquel was started and mood stabilizers were increased in dosages. 3. Right lower lobe consolidations secondary to HCAP-resolved - Seen on CXR and worsening, with pleural effusion as well - Possible pneumonia with pleural effusion versus atelectasis - Treated with Merrem and Vancomycin 4. Sinusitis - seen on MRI - Continue to treat with Inhaled Tobramycin 5. Blisters on hands - Multivitamin, vit C and Zinc added - Bacitracin ointment to be applied 6. Transaminitis Due to chronic alcohol abuse, will discuss alcohol cessation with patient once no longer sedated. -improving Prophylaxis - SCDs - Aspiration precautions - Seizure precautions - Heparin SC - Protonix
--- NOTE | 2017-12-16 17:04 | CP.PCM.CON ---
History of Present Illness - History of Present Illness History of Present Illness: Infectious Disease Follow Up: December 16, 2017 62 yo male with medical history that includes Bipolar disorder and alcohol abuse presented with EtOH intoxication and now in withdrawals. Originally in the psych floor for bipolar disease treatment and suicidal ideation on 11/21/2017. The patient required intubation. ID initially called for possible aspiration pneumonia. No fevers, leukocytosis at this time. Remains intubated. Still no fevers or leukocytosis. Remains sedated. Noted blistered skin on right hand that slightly improved. Persistent fevers up to 102.0 F earlier in course of hospitalization but afebrile the last few days.. Still no leukocytosis. Cultures from 11/30/2017 negative. New cultures sent 12/01-. Multiple blisters on the right hand. Fluid filler and dark in color. Would obtain fluid from blisters for culture. Would consider CT of chest/ abdomen/pelvis. Continue on meropenem for antibiotic coverage at this point. Also on inhaled tobramycin and IV Zyvox. No new issues. Difficult extubation. Trach and PEG done. Off sedation and receiving Ativan on a schedule. He opens eyes spontaneously and can follow a few simple commands... stick out tongue and blink eyes for example. Chest X-ray still with patchy infiltrate in right lung and atelectasis. No other new issues so far. Past Patient History - Infectious Disease Hx of Infectious Diseases: None - Past Medical History & Family History Past Medical History?: Yes - Past Social History Smoking Status: Never Smoked - CARDIAC Hx Pacemaker: No - PULMONARY Hx Respiratory Disorders: No - NEUROLOGICAL Hx Neurological Disorder: No - HEENT Hx HEENT Problems: No - RENAL Hx Chronic Kidney Disease: No - ENDOCRINE/METABOLIC Hx Endocrine Disorders: Yes Hx Diabetes Mellitus Type 1: Yes Hx Diabetes Mellitus Type 2: Yes - HEMATOLOGICAL/ONCOLOGICAL Hx Cancer: No - INTEGUMENTARY Hx Dermatological Problems: No - MUSCULOSKELETAL/RHEUMATOLOGICAL Hx Musculoskeletal Disorders: No Hx Falls: Yes - GASTROINTESTINAL Hx Gastrointestinal Disorders: No Hx Gastroesophageal Reflux: Yes - GENITOURINARY/GYNECOLOGICAL Hx Genitourinary Disorders: No - PSYCHIATRIC Hx Psychophysiologic Disorder: No Hx Anxiety: Yes Hx Bipolar Disorder: Yes Hx Depression: Yes Hx Substance Use: No - SURGICAL HISTORY Hx Mastectomy: No - ANESTHESIA Hx Anesthesia: No Hx Anesthesia Reactions: No Hx Malignant Hyperthermia: No Meds Allergies/Adverse Reactions: Allergies Allergy/AdvReac Type Severity Reaction Status Date / Time No Known Allergies Allergy Verified 11/21/17 12:05 - Medications Medications: Current Medications Acetaminophen (Tylenol 650 Mg Supp) 650 mg RC Q6H PRN PRN Reason: Fever >100.4 F Ascorbic Acid (Vitamin C 500 Mg Tab) 500 mg PO DAILY [facility] Last Admin: 12/16/17 10:56 Dose: 500 mg Bacitracin (Bacitracin) 1 ea TOP Q6 PRN PRN Reason: Swelling Last Admin: 11/28/17 09:34 Dose: 1 ea Clonidine HCl (Catapres) 0.2 mg PO BID [facility] Last Admin: 12/16/17 10:55 Dose: 0.2 mg Cyproheptadine HCl (Periactin) 4 mg PO Q8H [facility] Last Admin: 12/16/17 10:55 Dose: 4 mg Docusate Sodium (Colace Liquid) 100 mg PO BID [facility] Last Admin: 12/16/17 10:52 Dose: 100 mg Folic Acid (Folic Acid) 1 mg PO DAILY [facility] Last Admin: 12/16/17 10:56 Dose: 1 mg Heparin Sodium (Porcine) (Heparin) 5,000 units SC Q12 SHIV PRN Reason: Protocol Last Admin: 12/16/17 10:52 Dose: 5,000 units Hydralazine HCl (Apresoline) 10 mg IVP Q6 PRN PRN Reason: give if SBP >160 Last Admin: 12/13/17 04:06 Dose: 10 mg Hydroxyzine Pamoate (Vistaril) 25 mg PEG Q8H SHIV PRN Reason: Protocol Last Admin: 12/16/17 10:55 Dose: 25 mg Levalbuterol HCl (Xopenex) 0.63 mg IH [id number] PRN PRN Reason: Shortness of Breath Last Admin: 12/15/17 21:04 Dose: 0.63 mg Levetiracetam (Keppra) 750 mg PO Q12 [facility] Last Admin: 12/16/17 10:51 Dose: 750 mg Lorazepam (Ativan) 4 mg PEG Q4H SHIV PRN Reason: Protocol Last Admin: 12/16/17 10:54 Dose: 4 mg Lorazepam (Ativan) 2 mg IVP Q2H PRN; Protocol PRN Reason: Anxiety Last Admin: 12/16/17 14:45 Dose: 2 mg Multivitamins/Minerals (Therapeutic-M Tab) 1 tab PO 0800 [facility] Last Admin: 12/16/17 09:10 Dose: 1 tab Pantoprazole Sodium (Protonix Inj) 40 mg IVP DAILY [facility] Last Admin: 12/16/17 10:52 Dose: 40 mg Polyethylene Glycol (Miralax) 17 gm PO BID [facility] Last Admin: 12/16/17 10:52 Dose: 17 gm Propranolol HCl (Inderal) 40 mg PO BID [facility] Last Admin: 12/16/17 10:53 Dose: 40 mg Thiamine HCl (Vitamin B1 Tab) 100 mg PO TID [facility] Last Admin: 12/16/17 10:55 Dose: 100 mg Valproate Sodium (Depakene Oral Soln) 1,000 mg PO Q12 [facility] Last Admin: 12/16/17 10:52 Dose: 1,000 mg Physical Exam - Constitutional Appears: Non-toxic, No Acute Distress, Chronically Ill - Head Exam Additional comments: trach in place. - Eye Exam Eye Exam: EOMI, PERRL Pupil Exam: NORMAL ACCOMODATION, PERRL - ENT Exam ENT Exam: Mucous Membranes Moist, Normal External Ear Exam, TM's Normal Bilaterally - Neck Exam Neck exam: Positive for: Full Rom, Normal Inspection - Respiratory Exam Respiratory Exam: Decreased Breath Sounds, Respiratory Distress. absent: Rales , Rhonchi, Wheezes Additional comments: trach and ventilated - Cardiovascular Exam Cardiovascular Exam: REGULAR RHYTHM, RRR, +S1, +S2 - GI/Abdominal Exam GI & Abdominal Exam: Normal Bowel Sounds, Soft. absent: Distended, Tenderness - Extremities Exam Extremities exam: Positive for: full ROM, normal inspection - Neurological Exam Additional comments: Arousable and follows a few commands. - Skin Additional comments: Multiple blisters on the right hand. Fluid filler and dark in color. All the blisters are now burst. Results - Vital Signs Recent Vital Signs: Last Vital Signs Temp 97.7 F 12/15/17 20:00 Pulse 112 H 12/16/17 10:55 Resp 24 12/15/17 20:00 BP 135/89 12/16/17 10:55 Pulse Ox 100 12/16/17 06:00 - Labs Result Diagrams: 12/16/17 06:00 12/16/17 06:00 Labs: Laboratory Results - last 24 hr 12/16/17 12/16/17 06:00 06:00 WBC 8.0 D RBC 3.54 Hgb 10.6 L Hct 31.9 L MCV 90.1 MCH 29.9 MCHC 33.2 RDW 13.9 Plt Count 323 MPV 9.8 Sodium 142 Potassium 4.3 Chloride 103 Carbon Dioxide 33 Anion Gap 10 BUN 10 Creatinine 0.7 L Est GFR ( Amer) > 60 Est GFR (Non-Af Amer) > 60 Random Glucose 109 Calcium 9.3 Total Bilirubin 0.6 AST 48 ALT 54 Alkaline Phosphatase 67 Total Protein 5.8 Albumin 3.1 Globulin 2.7 Albumin/Globulin Ratio 1.2 Assessment & Plan - Assessment and Plan (Free Text) Assessment: 62 yo male with EtOH abuse. Developed EtOH withdrawal and now required intubation and ventilation. The patient was being evaluated by ID for potential aspiration. The patient is currently on Cefepime and Vancomycin. If aspiration is a significant concern, would either add Flagyl IV or switch Cefepime to Meropenem or Zosyn. Febrile several days ago up to 102 F. Afebrile the last few days. No leukocytosis. No findings on Chest X-ray. Supportive care. Procalcitonin is 0.14 which is low. Noted procalcitonin repeated multiple times and all showing low values. Suggests strongly against bacterial causes but does not rule out viral. More likely secondary to the EtOH withdrawal and Delirium Tremens. Case discussed with team. Off antibiotics now. Will Monitor. Difficult extubation/wean from ventilation. Afebrile. 11/30/2017 cultures negative so far. 12/01/2017 cultures with no specific growth. Afebrile the last few days. Sputum cultures with yeast. Patient is off sedation now. On Ativan on schedule. Patient arousable and can follow some simple commands. Trach and PEG done. Antibiotics completed. Supportive care. No need for further antibiotics. Thank you for allowing me to participate in the care of the patient, we will follow with you.
[2017-12-17] MEDS: Levalbuterol 0.63 MG/3 ML Inhal Soln UD IH PRN (05:46)
[2017-12-17 07:06] LABS: MEAN CELL VOLUME 89.3 fl (80.0-105.0); MEAN CORPUSCULAR HEMOGLOBIN 30.2 pg (25.0-35.0); MEAN CORPUSCULAR HGB CONC 33.8 g/dl (31.0-37.0); MEAN PLATELET VOLUME 10.1 fl (7.0-11.0); RBC 4.31 10^6/uL (3.5-6.1); RED CELL DISTRIBUTION WIDTH 13.9 % (11.5-14.5); WHITE BLOOD COUNT 9.5 10^3/ul (4.5-11.0)
[2017-12-17 07:11] LABS: ALB/GLOB RATIO 1.2 (1.1-1.8); ALBUMIN 3.9 g/dL (3.0-4.8); ALT/SGPT 52 U/L (7-56); AST/SGOT 34 U/L (17-59); BLOOD UREA NITROGEN 11 mg/dL (7-21); CALCIUM 10.1 mg/dL (8.4-10.5); GFR AFRICAN-AMERICAN > 60; GFR NON-AFRICAN AMERICAN > 60
[2017-12-17] MEDS: Multivitamin With Minerals Tab PO SCH (08:17)
[2017-12-17] MEDS: levETIRAcetam 500 mg/5ml UD cups PO SCH ×2 (09:43→21:22)
[2017-12-17] MEDS: POLYETHYLENE GLYCOL 3350 17 GM/Dose PACKET PO SCH ×2 (09:43→18:40)
[2017-12-17] MEDS: Valproic Acid 250 mg/5 ml UD Cup PO SCH ×2 (09:44→21:23)
--- NOTE | 2017-12-17 10:48 | CP.CCUPN ---
<Singh Traore - Last Filed: 12/17/17 10:53> CCU Subjective - Physician Review Subjective (Free Text): Singh Traore PGY1 ICU Note for Dr. Kong The patient was seen and examined in ICU. Patient is more awake and alert today , and seems more agitated. No acute overnight events. The patient was accepted to LTAC yesterday and the plan is for transport once confirmed and transporation is set up. The patient is hemodynamically stable and stable for transport. CCU Objective - Vital Signs / Intake & Output Vital Signs (Last 4 hours): Vital Signs Temp Pulse Resp BP Pulse Ox 12/17/17 09:39 113 H 12/17/17 09:00 115 H 100 12/17/17 08:06 161/95 H 12/17/17 08:05 115 H 34 H 100 12/17/17 08:00 98.6 F 109 H 29 H 100 12/17/17 07:57 186/105 H 12/17/17 07:56 102 H 27 H 100 12/17/17 07:55 166/103 H 12/17/17 07:54 103 H 31 H 100 12/17/17 07:06 140/82 12/17/17 07:05 106 H 79 H 79 L 12/17/17 07:00 91 L - Physical Exam Physical Exam Limitations: Positive for: Altered Mental Status Head: Positive for: Atraumatic, Normocephalic Pupils: Positive for: PERRL, Sluggish Extroacular Muscles: Positive for: EOMI Conjunctiva: Negative for: Injected Ears: Positive for: Normal Mouth: Positive for: Dry, Normal Teeth Pharnyx: Positive for: Normal Nose (External): Positive for: Atraumatic Nose (Internal): Positive for: Normal Inspection Neck: Positive for: Other (s/p tracheostomy). Negative for: JVD Respiratory/Chest: Positive for: Clear to Auscultation, Good Air Exchange, Other (on vent). Negative for: Respiratory Distress, Accessory Muscle Use, Wheezes, Rales, Retracting, Rhonchi, Tachypneic Cardiovascular: Positive for: Regular Rate and Rhythm, Normal S1, S2. Negative for: Murmurs Abdomen: Positive for: Normal Bowel Sounds, Feeding Tubes, Ostomy Tubes (PEG tube ). Negative for: Tenderness, Distention, Peritoneal Signs, Rebound, Guarding Genitourinary Male: Positive for: Other (texas catheter in place ) Back: Positive for: Normal Inspection. Negative for: Midline Tenderness Upper Extremity: Positive for: Normal Inspection, NORMAL PULSES, Other (resting right arm tremor at times, RUE rigidity noted; RUE PICC line). Negative for: Cyanosis, Edema Lower Extremity: Positive for: Normal Inspection, NORMAL PULSES. Negative for: Edema Neurological: Positive for: Other (follows simple commands, not sedated, is more awake but lethargic). Negative for: GCS=15, Speech Normal Skin: Positive for: Warm, Normal Color Psychiatric: Negative for: Alert, Oriented x 3, Normal Insight, Normal Concentration - Medications Active Medications: Active Medications Generic Name Dose Route Start Last Admin Trade Name Freq PRN Reason Stop Dose Admin Acetaminophen 650 mg 12/05/17 12:27 Tylenol 650 Mg Supp RC Q6H PRN Fever >100.4 F Ascorbic Acid 500 mg 11/28/17 11:30 12/17/17 09:42 Vitamin C 500 Mg Tab PO 500 mg DAILY SHIV Administration Bacitracin 1 ea 11/28/17 08:51 11/28/17 09:34 Bacitracin TOP 1 ea Q6 PRN Administration Swelling Clonidine HCl 0.2 mg 12/12/17 10:00 12/16/17 18:22 Catapres PO 0.2 mg BID SHIV Administration Cyproheptadine HCl 4 mg 12/05/17 11:15 12/17/17 03:39 Periactin PO 4 mg Q8H SHIV Administration Docusate Sodium 100 mg 12/05/17 18:00 12/17/17 09:44 Colace Liquid PO 100 mg BID [facility]IV Administration Folic Acid 1 mg 12/01/17 10:15 12/17/17 09:42 Folic Acid PO 1 mg DAILY [facility] Administration Heparin Sodium (Porcine) 5,000 units 12/13/17 22:00 12/17/17 09:42 Heparin SC 5,000 units Q12 [facility]IV Administration Protocol Hydralazine HCl 10 mg 11/29/17 14:56 12/13/17 04:06 Apresoline IVP 10 mg Q6 PRN Administration give if SBP >160 Hydroxyzine Pamoate 25 mg 12/14/17 15:17 12/17/17 09:43 Vistaril PEG 25 mg Q8H [facility]IV Administration Protocol Labetalol HCl 200 mg 12/17/17 10:00 Trandate PO BID SHIV Levalbuterol HCl 0.63 mg 12/02/17 09:55 12/17/17 05:46 Xopenex IH 0.63 mg [id number] PRN Administration Shortness of Breath Levetiracetam 750 mg 12/04/17 22:00 12/17/17 09:43 Keppra PO 750 mg Q12 [facility] Administration Lorazepam 4 mg 12/12/17 17:00 12/17/17 09:48 Ativan PEG 4 mg Q4H [facility]IV Administration Protocol Lorazepam 2 mg 12/16/17 13:26 12/17/17 03:50 Ativan IVP 2 mg Q2H PRN Administration Anxiety Protocol Multivitamins/Minerals 1 tab 11/29/17 08:00 12/17/17 08:17 Therapeutic-M Tab PO 1 tab 0800 [facility] Administration Pantoprazole Sodium 40 mg 11/22/17 10:00 12/17/17 09:42 Protonix Inj IVP 40 mg DAILY [facility] Administration Polyethylene Glycol 17 gm 12/05/17 18:00 12/17/17 09:43 Miralax PO 17 gm BID [facility]IV Administration Propranolol HCl 40 mg 12/05/17 11:00 12/17/17 09:39 Inderal PO 40 mg BID [facility]IV Administration Thiamine HCl 100 mg 11/28/17 14:00 12/17/17 09:42 Vitamin B1 Tab PO 100 mg TID [facility] Administration Valproate Sodium 1,000 mg 12/15/17 10:00 12/17/17 09:44 Depakene Oral Soln PO 1,000 mg Q12 [facility]IV Administration - Patient Studies Lab Studies: Lab Studies 12/17/17 12/17/17 12/17/17 Range/Units 06:35 06:35 06:35 WBC 9.5 (4.5-11.0) 10^3/ul RBC 4.31 (3.5-6.1) 10^6/uL Hgb 13.0 L D (14.0-18.0) g/dL Hct 38.5 L (42.0-52.0) % MCV 89.3 (80.0-105.0) fl MCH 30.2 (25.0-35.0) pg MCHC 33.8 (31.0-37.0) g/dl RDW 13.9 (11.5-14.5) % Plt Count 385 (120.0-450.0) 10^3/uL MPV 10.1 (7.0-11.0) fl Sodium 141 (132-148) mmol/L Potassium 5.0 (3.6-5.0) mmol/L Chloride 102 (98-107) mmol/L Carbon Dioxide 30 (21-33) mmol/L Anion Gap 15 (10-20) BUN 11 (7-21) mg/dL Creatinine 0.7 L (0.8-1.5) mg/dl Est GFR ( Amer) > 60 Est GFR (Non-Af Amer) > 60 Random Glucose 124 H (70-110) mg/dL Calcium 10.1 (8.4-10.5) mg/dL Total Bilirubin 1.1 (0.2-1.3) mg/dL AST 34 (17-59) U/L ALT 52 (7-56) U/L Alkaline Phosphatase 97 (38-126) U/L Total Protein 7.1 (5.8-8.3) g/dL Albumin 3.9 (3.0-4.8) g/dL Globulin 3.2 gm/dL Albumin/Globulin Ratio 1.2 (1.1-1.8) Valproic Acid 33 L (50.0-100.0) ug/mL Laboratory Results - last 24 hr 12/17/17 12/17/17 12/17/17 06:35 06:35 06:35 WBC 9.5 RBC 4.31 Hgb 13.0 L D Hct 38.5 L MCV 89.3 MCH 30.2 MCHC 33.8 RDW 13.9 Plt Count 385 MPV 10.1 Sodium 141 Potassium 5.0 Chloride 102 Carbon Dioxide 30 Anion Gap 15 BUN 11 Creatinine 0.7 L Est GFR ( Amer) > 60 Est GFR (Non-Af Amer) > 60 Random Glucose 124 H Calcium 10.1 Total Bilirubin 1.1 AST 34 ALT 52 Alkaline Phosphatase 97 Total Protein 7.1 Albumin 3.9 Globulin 3.2 Albumin/Globulin Ratio 1.2 Valproic Acid 33 L Fingerstick Blood Sugar Results: 111 Review of Systems - Review of Systems Systems not reviewed;Unavailable: Altered Mental Status Critical Care Progress Note - Ventilator Checklist Head of Bed 30 Degrees: Yes Daily Sedation Vacation: Yes Daily Assessment of Readiness to Wean: Yes Daily Spontaneous Breathing Trial: Yes PUD Prophalyxis: Yes DVT Prophylaxis: Yes Oral Care with Chlorhexidine Gluconate {CHG}: Yes - Vent Settings MODE:: PRVC - Extremities/Vascular Does the Patient have a Central Venous Catheter?: Yes (RUE PICC) Does the Patient need a Central Venous Catheter?: Yes Does the Patient have a Bah Catheter?: Yes Does the Patient need a Bah Catheter?: Yes - Restraints Justification for Restraints: High risk for self extubation, High risk for removing IV access - Prophylaxis GI Prophylaxis GI: PPI - Prophylaxis DVT Prophylaxis DVT: Heparin SQ, SCDs Assessment/Plan - Assessment and Plan (Free Text) Assessment: 62yo M with PMHx of Bipolar disorder and ETOH abuse in ICU for DTs 2/2 ETOH withdrawal and inability to wean off vent. Patient initially admitted to psych for suicidal ideation then transferred to in-patient due to severe ETOH withdrawal with DTs requiring high-dose sedation and intubation. Rhabdomyolysis was also noted, but has resolved. CXR showed RLL consolidation, and patient completed 8 day course of antibiotics for HCAP and sinusitis and is now off antibiotics. s/p Trach and PEG tube. Patient has failed 5 pressure support trials. Patient is off sedation, and is more awake and responsive today. The patient was accepted to LTAC after peer to peer was done with Dr. Kong and he will be transported once confirmed and transportation set up. The patient is hemodynamically stable for transport. Plan: Neuro: - off sedation and is more awake and responsive - Ativan SHIV and PRN, psych to adjust if needed - Vistaril SHIV - cont Clonidine - will cont on Propranolol and Cyptohepatadine for tremor, monitor for changes - continue thiamine, folic acid and multivitamin supplements - Neuro consulted- will discuss with them today if any meds need to be modified - 2 EEG's have been unremarkable so far; repeat EEG pending read - MRI brain showed persistent b/l maxially, ethomoid and sphoenoid sinusitis w/ mastoid effusions - Keppra 750mg BID and Depakote 1000mg BID for seizure precautions; neuro managing changes - VPA level was sub-therapeutic, neuro for recs - Continue CIWA protocol, seizure precaution, aspiration precaution Cardio: - HD stable - Maintain MAP> 65mmHg - Hydralazine PRN for BP control - cont Propranolol - started on Labetalol for HTN and tachycardia today Pulm: - s/p tracheostomy by ENT team - Patient failed 5 pressure support trials due to high rapid shallow breathing index and required to be placed back on PRVC; will attempt daily - Protective lung ventilation strategy, HOB elevated >30, daily oral care, and aspiration precautions, DVT and GI ppx, as well as daily attempts to wean off vent - Xopenex PRN - Patient has completed 8 day course of Meropenem and Vancomycin as well as tobramycin inhaled for sinusitis and possible RLL pneumonia - currently off antibiotics per ID recs - Maintain spO2>90% GI: - cont PEG tube feeds - Thiamine, Folic acid, and MV for ETOH withdrawal and DTs - PPI for GI ppx - s/p PEG by GI team Heme: - Hgb stable - platelets stable - monitor H/H daily Nephro: - Will continue to monitor electrolytes and replace as needed - Continue to monitor I&O Endo: - stable blood glucose levels - maintain euglycemia ID: - has been afebrile; blood cultures and UA negative. prior fevers likely 2/2 DT' s - off antibiotics; completed 8 days of Meropenem, Vancomycin and Tobramycin inhaled for sinusitis and HCAP - Bacitracin, Zinc, MV and vit C for skin - ID consulted- recs appreciated - PICC line in place Psych: - Hx of Bipolar - Psych consulted- recs appreciated - will evaluate per note - Consent for trach and PICC line obtained by Dr. Velez on 12/05 with family members over phone; consent for PEG obtained by GI team GI ppx: Protonix DVT ppx: Heparin SC and SCDs Diet: Tube feeds per PEG tube Dispo: Plan for LTAC per SW, which patient was accepted to after peer to peer and will be transported once transport is set up and confirmed. Patient is off sedation but failed pressure support trials on trach; will attempt to wean daily. Patient was seen, examined, and discussed with attending, Dr. Dilan Traore PGY1 Pager [phone] <Cooper Kong - Last Filed: 12/17/17 11:18> CCU Objective - Vital Signs / Intake & Output Vital Signs (Last 4 hours): Vital Signs Temp Pulse Resp BP Pulse Ox 12/17/17 09:39 113 H 12/17/17 09:00 115 H 100 12/17/17 08:06 161/95 H 12/17/17 08:05 115 H 34 H 100 12/17/17 08:00 98.6 F 109 H 29 H 100 12/17/17 07:57 186/105 H 12/17/17 07:56 102 H 27 H 100 12/17/17 07:55 166/103 H 12/17/17 07:54 103 H 31 H 100 - Medications Active Medications: Active Medications Generic Name Dose Route Start Last Admin Trade Name Freq PRN Reason Stop Dose Admin Acetaminophen 650 mg 12/05/17 12:27 Tylenol 650 Mg Supp RC Q6H PRN Fever >100.4 F Ascorbic Acid 500 mg 11/28/17 11:30 12/17/17 09:42 Vitamin C 500 Mg Tab PO 500 mg DAILY [facility]IV Administration Bacitracin 1 ea 11/28/17 08:51 11/28/17 09:34 Bacitracin TOP 1 ea Q6 PRN Administration Swelling Clonidine HCl 0.2 mg 12/12/17 10:00 12/16/17 18:22 Catapres PO 0.2 mg BID SHIV Administration Cyproheptadine HCl 4 mg 12/05/17 11:15 12/17/17 03:39 Periactin PO 4 mg Q8H SHIV Administration Docusate Sodium 100 mg 12/05/17 18:00 12/17/17 09:44 Colace Liquid PO 100 mg BID SHIV Administration Folic Acid 1 mg 12/01/17 10:15 12/17/17 09:42 Folic Acid PO 1 mg DAILY [facility] Administration Heparin Sodium (Porcine) 5,000 units 12/13/17 22:00 12/17/17 09:42 Heparin SC 5,000 units Q12 [facility]IV Administration Protocol Hydralazine HCl 10 mg 11/29/17 14:56 12/13/17 04:06 Apresoline IVP 10 mg Q6 PRN Administration give if SBP >160 Hydroxyzine Pamoate 25 mg 12/14/17 15:17 12/17/17 09:43 Vistaril PEG 25 mg Q8H SHIV Administration Protocol Labetalol HCl 200 mg 12/17/17 10:00 Trandate PO BID SHIV Levalbuterol HCl 0.63 mg 12/02/17 09:55 12/17/17 05:46 Xopenex IH 0.63 mg [id number] PRN Administration Shortness of Breath Levetiracetam 750 mg 12/04/17 22:00 12/17/17 09:43 Keppra PO 750 mg Q12 [facility]IV Administration Lorazepam 4 mg 12/12/17 17:00 12/17/17 09:48 Ativan PEG 4 mg Q4H SHIV Administration Protocol Lorazepam 2 mg 12/16/17 13:26 12/17/17 03:50 Ativan IVP 2 mg Q2H PRN Administration Anxiety Protocol Multivitamins/Minerals 1 tab 11/29/17 08:00 12/17/17 08:17 Therapeutic-M Tab PO 1 tab 0800 [facility]IV Administration Pantoprazole Sodium 40 mg 11/22/17 10:00 12/17/17 09:42 Protonix Inj IVP 40 mg DAILY [facility] Administration Polyethylene Glycol 17 gm 12/05/17 18:00 12/17/17 09:43 Miralax PO 17 gm BID [facility]IV Administration Propranolol HCl 40 mg 12/05/17 11:00 12/17/17 09:39 Inderal PO 40 mg BID SHIV Administration Thiamine HCl 100 mg 11/28/17 14:00 12/17/17 09:42 Vitamin B1 Tab PO 100 mg TID [facility]IV Administration Valproate Sodium 1,000 mg 12/15/17 10:00 12/17/17 09:44 Depakene Oral Soln PO 1,000 mg Q12 [facility]IV Administration - Patient Studies Lab Studies: Lab Studies 12/17/17 12/17/17 12/17/17 Range/Units 06:35 06:35 06:35 WBC 9.5 (4.5-11.0) 10^3/ul RBC 4.31 (3.5-6.1) 10^6/uL Hgb 13.0 L D (14.0-18.0) g/dL Hct 38.5 L (42.0-52.0) % MCV 89.3 (80.0-105.0) fl MCH 30.2 (25.0-35.0) pg MCHC 33.8 (31.0-37.0) g/dl RDW 13.9 (11.5-14.5) % Plt Count 385 (120.0-450.0) 10^3/uL MPV 10.1 (7.0-11.0) fl Sodium 141 (132-148) mmol/L Potassium 5.0 (3.6-5.0) mmol/L Chloride 102 (98-107) mmol/L Carbon Dioxide 30 (21-33) mmol/L Anion Gap 15 (10-20) BUN 11 (7-21) mg/dL Creatinine 0.7 L (0.8-1.5) mg/dl Est GFR ( Amer) > 60 Est GFR (Non-Af Amer) > 60 Random Glucose 124 H (70-110) mg/dL Calcium 10.1 (8.4-10.5) mg/dL Total Bilirubin 1.1 (0.2-1.3) mg/dL AST 34 (17-59) U/L ALT 52 (7-56) U/L Alkaline Phosphatase 97 (38-126) U/L Total Protein 7.1 (5.8-8.3) g/dL Albumin 3.9 (3.0-4.8) g/dL Globulin 3.2 gm/dL Albumin/Globulin Ratio 1.2 (1.1-1.8) Valproic Acid 33 L (50.0-100.0) ug/mL Laboratory Results - last 24 hr 12/17/17 12/17/17 12/17/17 06:35 06:35 06:35 WBC 9.5 RBC 4.31 Hgb 13.0 L D Hct 38.5 L MCV 89.3 MCH 30.2 MCHC 33.8 RDW 13.9 Plt Count 385 MPV 10.1 Sodium 141 Potassium 5.0 Chloride 102 Carbon Dioxide 30 Anion Gap 15 BUN 11 Creatinine 0.7 L Est GFR ( Amer) > 60 Est GFR (Non-Af Amer) > 60 Random Glucose 124 H Calcium 10.1 Total Bilirubin 1.1 AST 34 ALT 52 Alkaline Phosphatase 97 Total Protein 7.1 Albumin 3.9 Globulin 3.2 Albumin/Globulin Ratio 1.2 Valproic Acid 33 L Assessment/Plan - Assessment and Plan (Free Text) Assessment: Pt seen and examined on rounds with resident, agree with note with following additions/exceptions: 62yo male with PMHx of heavy EtOH abuse a/w EtOH withdrawal, DTs, was intubated , now s/p trach/PEG. Patient with improved confusion, opens eyes but does not follow commands. Very difficult to wean off ventilator 2/2, fails daily CPAP trials, becomes tachypneic, RSBI>120 Off Precedex drip. Awaiting LTach. Delirium Tremens Alcohol Withdrawal Dehydration AMS ?Serotonin Syndrome Recommend: - cont with ventilatory support, daily cpap trials - monitor off Abx - IVF hydration - Thiamine, Folic, MVT - cont with Keppra - Ativan IV PRN - follow up Psych - follow up Neuro - Feeds - GI ppx - DVT ppx - patient requires LTACH
--- NOTE | 2017-12-17 13:05 | CP.PCM.DIS ---
Provider - Provider Date of Admission: 11/21/17 11:05 Attending physician: Samantha Tabor MD Primary care physician: NO PRIMARY CARE PROVIDER Hospital Course - Lab Results Lab Results: Micro Results 12/02/17 03:30 Blood-Venous Blood Culture - Final NO GROWTH AFTER 5 DAYS 12/02/17 03:30 Blood-Venous Gram Stain - Final TEST NOT PERFORMED 12/02/17 03:00 Blood-Venous Blood Culture - Final NO GROWTH AFTER 5 DAYS 12/02/17 03:00 Blood-Venous Gram Stain - Final TEST NOT PERFORMED 12/04/17 14:09 Sputum Gram Stain - Final 12/04/17 14:09 Sputum Sputum Culture - Final Yeast Species 11/30/17 21:45 Blood-Venous Blood Culture - Final NO GROWTH AFTER 5 DAYS 11/30/17 21:45 Blood-Venous Gram Stain - Final TEST NOT PERFORMED 11/30/17 22:00 Blood-Venous Blood Culture - Final NO GROWTH AFTER 5 DAYS 11/30/17 22:00 Blood-Venous Gram Stain - Final TEST NOT PERFORMED 12/02/17 02:00 Urine,Catheterized Urine Culture - Final No Growth (<1,000 CFU/ML) 11/24/17 10:00 Blood-Venous Blood Culture - Final NO GROWTH AFTER 5 DAYS 11/24/17 10:00 Blood-Venous Gram Stain - Final TEST NOT PERFORMED 11/24/17 10:30 Blood-Venous Blood Culture - Final NO GROWTH AFTER 5 DAYS 11/24/17 10:30 Blood-Venous Gram Stain - Final TEST NOT PERFORMED 11/23/17 13:00 Stool C. difficile Antigen & Toxin A,B (M - Final 11/21/17 21:45 Naris MRSA Culture (Admit) - Final MRSA NOT DETECTED Most Recent Lab Values WBC 9.5 10^3/ul (4.5-11.0) 12/17/17 06:35 RBC 4.31 10^6/uL (3.5-6.1) 12/17/17 06:35 Hgb 13.0 g/dL (14.0-18.0) L D 12/17/17 06:35 Hct 38.5 % (42.0-52.0) L 12/17/17 06:35 MCV 89.3 fl (80.0-105.0) 12/17/17 06:35 MCH 30.2 pg (25.0-35.0) 12/17/17 06:35 MCHC 33.8 g/dl (31.0-37.0) 12/17/17 06:35 RDW 13.9 % (11.5-14.5) 12/17/17 06:35 Plt Count 385 10^3/uL (120.0-450.0) 12/17/17 06:35 MPV 10.1 fl (7.0-11.0) 12/17/17 06:35 Gran % 76.2 % (50.0-68.0) H 12/15/17 05:25 Lymph % (Auto) 14.2 % (22.0-35.0) L 12/15/17 05:25 [place] % (Auto) 6.1 % (1.0-6.0) H 12/15/17 05:25 Eos % (Auto) 3.2 % (1.5-5.0) 12/15/17 05:25 Baso % (Auto) 0.3 % (0.0-3.0) 12/15/17 05:25 Gran # 4.70 (1.4-6.5) 12/15/17 05:25 Lymph # (Auto) 0.9 (1.2-3.4) L 12/15/17 05:25 [place] # (Auto) 0.4 (0.1-0.6) 12/15/17 05:25 Eos # (Auto) 0.2 (0.0-0.7) 12/15/17 05:25 Baso # (Auto) 0.02 K/mm3 (0.0-2.0) 12/15/17 05:25 Neutrophils % (Manual) 92 % (50.0-70.0) H 11/21/17 09:19 Lymphocytes % (Manual) 4 % (22.0-35.0) L 11/21/17 09:19 Monocytes % (Manual) 4 % (1.0-6.0) 11/21/17 09:19 Platelet Evaluation Normal (NORMAL) 11/21/17 09:19 ESR 51 mm/hr (0.00-15.0) H 12/03/17 14:20 Haptoglobin 203 mg/dL (43-212) 12/07/17 06:50 PT 15.4 SECONDS (9.4-12.5) H 12/10/17 07:00 INR 1.33 (0.93-1.08) H 12/10/17 07:00 pCO2 34 mm/Hg (35-45) L 12/08/17 06:30 pO2 83.0 mm/Hg (80-100) 12/08/17 06:30 HCO3 23.6 mmol/L (21-28) 12/08/17 06:30 ABG pH 7.45 (7.35-7.45) 12/08/17 06:30 ABG Total CO2 24.6 mmol.L (22-28) 12/08/17 06:30 ABG O2 Saturation 99.3 % (95-98) H 12/08/17 06:30 ABG O2 Content 11.9 ML/dl (15-23) L 12/08/17 06:30 ABG Base Excess -0.2 mmol/L (-2.0-3.0) 12/08/17 06:30 ABG Hemoglobin 8.7 g/dL (11.7-17.4) L 12/08/17 06:30 ABG Carboxyhemoglobin 1.8 % (0.5-1.5) H 12/08/17 06:30 POC ABG HHb (Measured) 0.7 % (0-5) 12/08/17 06:30 ABG Methemoglobin 1.1 % (0.0-3.0) 12/08/17 06:30 ABG O2 Capacity 12.0 mL/dl (16-24) L 12/08/17 06:30 VBG pH 7.41 (7.32-7.43) 12/03/17 10:30 VBG pCO2 43.0 (40-60) 12/03/17 10:30 VBG HCO3 27.3 mmol/l (21-28) 12/03/17 10:30 VBG Total CO2 28.6 mmol.L (22-28) H 12/03/17 10:30 VBG O2 Sat (Calc) 96.7 % (40-65) H 12/03/17 10:30 VBG Base Excess 2.2 mmol/L (0.0-2.0) H 12/03/17 10:30 VBG Potassium 4.0 mmol/L (3.6-5.2) 12/03/17 10:30 Hgb O2 Saturation 96.4 % (95.0-98.0) 12/08/17 06:30 Sodium 146.0 mmol/L (132-148) 12/03/17 10:30 Chloride 115.0 mmol/L (98-107) H 12/03/17 10:30 Glucose 123 mg/dl (75-110) H 12/03/17 10:30 Lactate 0.7 mmol/L (0.7-2.1) 12/03/17 10:30 FiO2 50.0 % 12/08/17 06:30 Sodium 141 mmol/L (132-148) 12/17/17 06:35 Potassium 5.0 mmol/L (3.6-5.0) 12/17/17 06:35 Chloride 102 mmol/L (98-107) 12/17/17 06:35 Carbon Dioxide 30 mmol/L (21-33) 12/17/17 06:35 Anion Gap 15 (10-20) 12/17/17 06:35 BUN 11 mg/dL (7-21) 12/17/17 06:35 Creatinine 0.7 mg/dl (0.8-1.5) L 12/17/17 06:35 Est GFR ( Amer) > 60 12/17/17 06:35 Est GFR (Non-Af Amer) > 60 12/17/17 06:35 POC Glucose (mg/dL) 111 mg/dL (65-110) H 12/13/17 04:24 Random Glucose 124 mg/dL (70-110) H 12/17/17 06:35 Lactic Acid 1.1 mmol/L (0.7-2.1) 11/24/17 09:50 Calcium 10.1 mg/dL (8.4-10.5) 12/17/17 06:35 Phosphorus 3.3 mg/dL (2.5-4.5) 12/12/17 06:15 Magnesium 2.3 mg/dL (1.7-2.2) H 12/12/17 06:15 Total Bilirubin 1.1 mg/dL (0.2-1.3) 12/17/17 06:35 AST 34 U/L (17-59) 12/17/17 06:35 ALT 52 U/L (7-56) 12/17/17 06:35 Alkaline Phosphatase 97 U/L (38-126) 12/17/17 06:35 Liver Fibrosis Score 0.17 12/07/17 06:50 Liver Fibrosis Interp See note 12/07/17 06:50 Liver Fibrosis Comment See note 12/07/17 06:50 Liver Fibrosis Stage F0 12/07/17 06:50 Necroinflammator Score 0.24 12/07/17 06:50 Necroinflam Score Cmmt See note 12/07/17 06:50 Necroinflammator Grade A0-a1 12/07/17 06:50 Ammonia < 9 umol/L (9-33) L 12/10/17 07:00 Total Creatine Kinase 126 U/L (35-230) 12/10/17 07:00 CK-MB (CK-2) 2.0 ng/mL (0.0-3.6) 12/03/17 06:30 CK-MB (CK-2) % 0.2 % (2.5-3.0) L 11/25/17 05:30 C-React Prot High Sens > 15.00 mg/L (1.00-3.00) H 12/03/17 14:20 Total Protein 7.1 g/dL (5.8-8.3) 12/17/17 06:35 Albumin 3.9 g/dL (3.0-4.8) 12/17/17 06:35 Globulin 3.2 gm/dL 12/17/17 06:35 Albumin/Globulin Ratio 1.2 (1.1-1.8) 12/17/17 06:35 Kuiku-1-Vutgmtvqjcnpm 110 mg/dL (106-279) 12/07/17 06:50 Apolipoprotein A-1 63 mg/dL (94-176) L 12/07/17 06:50 Procalcitonin 0.09 NG/ML (0.19-0.49) L 12/03/17 10:30 Venous Blood Potassium 4.0 mmol/L (3.6-5.2) 12/03/17 10:30 Urine Color Yellow (YELLOW) 12/02/17 02:00 Urine Appearance Sl cloudy (CLEAR) 12/02/17 02:00 Urine pH 6.0 (4.7-8.0) 12/02/17 02:00 Ur Specific Avella 1.025 (1.005-1.035) 12/02/17 02:00 Urine Protein 30 mg/dL (<30 mg/dL) H 12/02/17 02:00 Urine Glucose (UA) Negative mg/dL (NEGATIVE) 12/02/17 02:00 Urine Ketones 15 mg/dL (NEGATIVE) H 12/02/17 02:00 Urine Blood Large (NEGATIVE) H 12/02/17 02:00 Urine Nitrate Negative (NEGATIVE) 12/02/17 02:00 Urine Bilirubin Negative (NEGATIVE) 12/02/17 02:00 Urine Urobilinogen 0.2 E.U./dL (<1 E.U./dL) 12/02/17 02:00 Ur Leukocyte Esterase Negative Chris/uL (NEGATIVE) 12/02/17 02:00 Urine RBC Tntc /hpf (0-2) 12/02/17 02:00 Urine WBC 0 - 2 /hpf (0-6) 12/02/17 02:00 Ur Epithelial Cells 0 - 2 /hpf (0-5) 12/02/17 02:00 Urine Bacteria Few (NEG) 12/02/17 02:00 Urine Myoglobin < 28 mcg/L (< 28) 11/26/17 08:30 Salicylates < 1 mg/dL (2.0-20.0) L 11/21/17 09:19 Urine Opiates Screen Negative (NEGATIVE) 11/21/17 10:30 Urine Methadone Screen Negative (NEGATIVE) 11/21/17 10:30 Acetaminophen < 10.0 ug/ml (10.0-20.0) L 11/21/17 09:19 Ur Barbiturates Screen Negative (NEGATIVE) 11/21/17 10:30 Valproic Acid 33 ug/mL (50.0-100.0) L 12/17/17 06:35 Ur Phencyclidine Scrn Negative (NEGATIVE) 11/21/17 10:30 Ur Amphetamines Screen Negative (NEGATIVE) 11/21/17 10:30 U Benzodiazepines Scrn Positive (NEGATIVE) 11/21/17 10:30 U Oth Cocaine Metabols Negative (NEGATIVE) 11/21/17 10:30 U Cannabinoids Screen Negative (NEGATIVE) 11/21/17 10:30 Alcohol, Quantitative < 10 mg/dL (0-10) 11/21/17 09:19 RJ Screen Negative (Negative) 12/03/17 14:20 Hepatitis A IgM Ab Negative (NEGATIVE) 12/10/17 05:30 Hep Bs Antigen Negative (NEGATIVE) 12/10/17 05:30 Hep B Core IgM Ab Negative (NEGATIVE) 12/10/17 05:30 Hepatitis C Antibody Negative (NEGATIVE) 12/10/17 05:30 Ref Lab Specimen ID [id number] 12/07/17 06:50 Blood Type A POSITIVE 12/10/17 09:56 Blood Type Confirm A POSITIVE 12/10/17 11:00 Antibody Screen Negative 12/10/17 09:56 BBK History Checked No verified bt 12/10/17 09:56 Discharge Exam - Head Exam Head Exam: ATRAUMATIC, NORMAL INSPECTION, NORMOCEPHALIC Discharge Plan - Follow Up Plan Condition: FAIR Disposition: [facility] Additional Instructions: Please continue current medications. For the Ativan please decrease dose by 10% every day. Referrals: PCP,NO [Primary Care Provider] -
--- NOTE | 2017-12-17 14:11 | CP.PCM.PN ---
Subjective - Date & Time of Evaluation Date of Evaluation: 12/17/17 Time of Evaluation: 13:00 - Subjective Subjective: Infectious Disease Follow Up: December 17, 2017 62 yo male with medical history that includes Bipolar disorder and alcohol abuse presented with EtOH intoxication and now in withdrawals. Originally in the psych floor for bipolar disease treatment and suicidal ideation on 11/21/2017. The patient required intubation. ID initially called for possible aspiration pneumonia. No fevers, leukocytosis at this time. Remains intubated. Still no fevers or leukocytosis. Remains sedated. Noted blistered skin on right hand that slightly improved. Persistent fevers up to 102.0 F earlier in course of hospitalization but afebrile the last few days.. Still no leukocytosis. Cultures from 11/30/2017 negative. New cultures sent 12/01-. Multiple blisters on the right hand. Fluid filler and dark in color. Would obtain fluid from blisters for culture. Would consider CT of chest/ abdomen/pelvis. Continue on meropenem for antibiotic coverage at this point. Also on inhaled tobramycin and IV Zyvox. No new issues. Difficult extubation. Trach and PEG done. Off sedation and receiving Ativan on a schedule. He opens eyes spontaneously and can follow a few simple commands... stick out tongue and blink eyes for example. Chest X-ray still with patchy infiltrate in right lung and atelectasis. No other new issues so far. Accepted into LTACH. Awaiting transport arrangements. Objective - Vital Signs/Intake and Output Vital Signs (last 24 hours): Temp Pulse Resp BP Pulse Ox 98.6 F 86 34 H 125/77 100 12/17/17 08:00 12/17/17 13:09 12/17/17 08:05 12/17/17 13:09 12/17/17 13:09 - Medications Medications: Current Medications Acetaminophen (Tylenol 650 Mg Supp) 650 mg RC Q6H PRN PRN Reason: Fever >100.4 F Ascorbic Acid (Vitamin C 500 Mg Tab) 500 mg PO DAILY [facility] Last Admin: 12/17/17 09:42 Dose: 500 mg Bacitracin (Bacitracin) 1 ea TOP Q6 PRN PRN Reason: Swelling Last Admin: 11/28/17 09:34 Dose: 1 ea Clonidine HCl (Catapres) 0.2 mg PO BID [facility] Last Admin: 12/17/17 09:45 Dose: 0.2 mg Docusate Sodium (Colace Liquid) 100 mg PO BID [facility] Last Admin: 12/17/17 09:44 Dose: 100 mg Folic Acid (Folic Acid) 1 mg PO DAILY [facility] Last Admin: 12/17/17 09:42 Dose: 1 mg Heparin Sodium (Porcine) (Heparin) 5,000 units SC Q12 SHIV PRN Reason: Protocol Last Admin: 12/17/17 09:42 Dose: 5,000 units Hydralazine HCl (Apresoline) 10 mg IVP Q6 PRN PRN Reason: give if SBP >160 Last Admin: 12/13/17 04:06 Dose: 10 mg Hydroxyzine Pamoate (Vistaril) 25 mg PEG Q8H SHIV PRN Reason: Protocol Last Admin: 12/17/17 09:43 Dose: 25 mg Labetalol HCl (Trandate) 200 mg PO BID [facility] Last Admin: 12/17/17 11:45 Dose: 200 mg Levalbuterol HCl (Xopenex) 0.63 mg IH [id number] PRN PRN Reason: Shortness of Breath Last Admin: 12/17/17 05:46 Dose: 0.63 mg Levetiracetam (Keppra) 750 mg PO Q12 [facility] Last Admin: 12/17/17 09:43 Dose: 750 mg Lorazepam (Ativan) 4 mg PEG Q4H SHIV PRN Reason: Protocol Last Admin: 12/17/17 09:48 Dose: 4 mg Lorazepam (Ativan) 2 mg IVP Q2H PRN; Protocol PRN Reason: Anxiety Last Admin: 12/17/17 13:21 Dose: 2 mg Multivitamins/Minerals (Therapeutic-M Tab) 1 tab PO 0800 [facility] Last Admin: 12/17/17 08:17 Dose: 1 tab Pantoprazole Sodium (Protonix Inj) 40 mg IVP DAILY [facility] Last Admin: 12/17/17 09:42 Dose: 40 mg Polyethylene Glycol (Miralax) 17 gm PO BID [facility] Last Admin: 12/17/17 09:43 Dose: 17 gm Propranolol HCl (Inderal) 40 mg PO BID [facility] Last Admin: 12/17/17 09:39 Dose: 40 mg Thiamine HCl (Vitamin B1 Tab) 100 mg PO TID [facility] Last Admin: 12/17/17 09:42 Dose: 100 mg Valproate Sodium (Depakene Oral Soln) 1,000 mg PO Q12 [facility]IV Last Admin: 12/17/17 09:44 Dose: 1,000 mg - Labs Labs: 12/17/17 06:35 12/17/17 06:35 PT 15.4 SECONDS (9.4-12.5) H 12/10/17 07:00 INR 1.33 (0.93-1.08) H 12/10/17 07:00 - Constitutional Appears: Non-toxic, No Acute Distress, Chronically Ill - Head Exam Additional comments: trach in place. - Eye Exam Eye Exam: EOMI, PERRL Pupil Exam: NORMAL ACCOMODATION, PERRL - ENT Exam ENT Exam: Mucous Membranes Moist, Normal External Ear Exam, TM's Normal Bilaterally - Neck Exam Neck Exam: Full ROM, Normal Inspection - Respiratory Exam Respiratory Exam: Decreased Breath Sounds. absent: Rales, Rhonchi, Wheezes Additional comments: trach and ventilated. - Cardiovascular Exam Cardiovascular Exam: REGULAR RHYTHM, RRR, +S1 - GI/Abdominal Exam GI & Abdominal Exam: Soft, Normal Bowel Sounds. absent: Distended, Tenderness - Extremities Exam Extremities Exam: Full ROM, Normal Inspection - Neurological Exam Additional comments: Arousable and follows a few commands. - Skin Additional comments: Multiple blisters on the right hand. Fluid filler and dark in color. All the blisters are now burst Assessment and Plan - Assessment and Plan (Free Text) Assessment: 62 yo male with EtOH abuse. Developed EtOH withdrawal and now required intubation and ventilation. The patient was being evaluated by ID for potential aspiration. The patient is currently on Cefepime and Vancomycin. If aspiration is a significant concern, would either add Flagyl IV or switch Cefepime to Meropenem or Zosyn. Febrile several days ago up to 102 F. Afebrile the last few days. No leukocytosis. No findings on Chest X-ray. Supportive care. Procalcitonin is 0.14 which is low. Noted procalcitonin repeated multiple times and all showing low values. Suggests strongly against bacterial causes but does not rule out viral. More likely secondary to the EtOH withdrawal and Delirium Tremens. Case discussed with team. Off antibiotics now. Will Monitor. Difficult extubation/wean from ventilation. Afebrile. 11/30/2017 cultures negative so far. 12/01/2017 cultures with no specific growth. Afebrile the last few days. Sputum cultures with yeast. Patient is off sedation now. On Ativan on schedule. Patient arousable and can follow some simple commands. Trach and PEG done. Antibiotics completed. Supportive care. No need for further antibiotics. For LTACH possibly today. Thank you for allowing me to participate in the care of the patient, we will follow with you.
--- NOTE | 2017-12-18 07:39 | CP.CCUPN ---
<EugenieSingh - Last Filed: 12/18/17 10:44> CCU Subjective - Physician Review Subjective (Free Text): Singh Traore PGY1 ICU Note for Dr. Kong The patient was seen and examined in ICU. There were no acute overnight events. The patient remains arousable and following commands as on prior days w/ no changes in mental status or medical condition. ROS could not be obtained due to AMS. Patient could not be transferred yesterday due to bed availability at accepting location. CCU Objective - Vital Signs / Intake & Output Vital Signs (Last 4 hours): Vital Signs Temp Pulse Resp BP Pulse Ox 12/18/17 06:09 104 H 125/86 99 12/18/17 06:00 97 H 12/18/17 05:09 96 H 137/81 100 12/18/17 05:00 98 H 100 12/18/17 04:09 109 H 133/74 100 12/18/17 04:00 98.1 F 101 H 28 H 100 Intake and Output (Last 8hrs): Intake & Output 12/17/17 12/18/17 12/18/17 22:59 06:59 14:59 Intake Total 830 Balance 830 Intake: IV 20 Right Upper arm 20 Tube Feeding 810 Other: # Bowel Movements 1 - Physical Exam Physical Exam Limitations: Positive for: Altered Mental Status Head: Positive for: Atraumatic, Normocephalic Pupils: Positive for: PERRL, Sluggish Conjunctiva: Negative for: Injected Mouth: Positive for: Dry Neck: Positive for: Other (s/p tracheostomy). Negative for: JVD Respiratory/Chest: Positive for: Clear to Auscultation, Good Air Exchange, Other (on vent). Negative for: Respiratory Distress, Accessory Muscle Use, Wheezes, Rales, Retracting, Rhonchi, Tachypneic Cardiovascular: Positive for: Regular Rate and Rhythm, Normal S1, S2. Negative for: Murmurs Abdomen: Positive for: Normal Bowel Sounds, Feeding Tubes, Ostomy Tubes (PEG tube ). Negative for: Tenderness, Distention, Peritoneal Signs, Rebound, Guarding Back: Positive for: Normal Inspection. Negative for: Midline Tenderness Upper Extremity: Positive for: Normal Inspection, NORMAL PULSES, Other (resting right arm tremor at times, RUE rigidity noted; RUE PICC line). Negative for: Cyanosis, Edema Lower Extremity: Positive for: Normal Inspection, NORMAL PULSES. Negative for: Edema Neurological: Positive for: Other (follows simple commands, not sedated, is more awake but lethargic). Negative for: GCS=15, Speech Normal Skin: Positive for: Warm, Normal Color Psychiatric: Negative for: Alert, Oriented x 3, Normal Insight, Normal Concentration - Medications Active Medications: Active Medications Generic Name Dose Route Start Last Admin Trade Name Freq PRN Reason Stop Dose Admin Acetaminophen 650 mg 12/05/17 12:27 Tylenol 650 Mg Supp RC Q6H PRN Fever >100.4 F Ascorbic Acid 500 mg 11/28/17 11:30 12/17/17 09:42 Vitamin C 500 Mg Tab PO 500 mg DAILY SHIV Administration Bacitracin 1 ea 11/28/17 08:51 11/28/17 09:34 Bacitracin TOP 1 ea Q6 PRN Administration Swelling Clonidine HCl 0.2 mg 12/12/17 10:00 12/17/17 18:42 Catapres PO 0.2 mg BID SHIV Administration Docusate Sodium 100 mg 12/05/17 18:00 12/17/17 18:41 Colace Liquid PO 100 mg BID SHIV Administration Folic Acid 1 mg 12/01/17 10:15 12/17/17 09:42 Folic Acid PO 1 mg DAILY SHIV Administration Heparin Sodium (Porcine) 5,000 units 12/13/17 22:00 12/17/17 21:22 Heparin SC 5,000 units Q12 SHIV Administration Protocol Hydralazine HCl 10 mg 11/29/17 14:56 12/13/17 04:06 Apresoline IVP 10 mg Q6 PRN Administration give if SBP >160 Hydroxyzine Pamoate 25 mg 12/14/17 15:17 12/17/17 23:25 Vistaril PEG 25 mg Q8H SHIV Administration Protocol Labetalol HCl 200 mg 12/17/17 10:00 12/17/17 18:41 Trandate PO 200 mg BID SHIV Administration Levalbuterol HCl 0.63 mg 12/02/17 09:55 12/17/17 05:46 Xopenex IH 0.63 mg [id number] PRN Administration Shortness of Breath Levetiracetam 750 mg 12/04/17 22:00 12/17/17 21:22 Keppra PO 750 mg Q12 SHIV Administration Lorazepam 4 mg 12/12/17 17:00 12/18/17 05:07 Ativan PEG 4 mg Q4H SHIV Administration Protocol Lorazepam 2 mg 12/16/17 13:26 12/18/17 04:12 Ativan IVP 2 mg Q2H PRN Administration Anxiety Protocol Multivitamins/Minerals 1 tab 11/29/17 08:00 12/17/17 08:17 Therapeutic-M Tab PO 1 tab 0800 SHIV Administration Pantoprazole Sodium 40 mg 11/22/17 10:00 12/17/17 09:42 Protonix Inj IVP 40 mg DAILY SHIV Administration Polyethylene Glycol 17 gm 12/05/17 18:00 12/17/17 18:40 Miralax PO 17 gm BID SHIV Administration Propranolol HCl 40 mg 12/05/17 11:00 12/17/17 18:40 Inderal PO 40 mg BID SHIV Administration Thiamine HCl 100 mg 11/28/17 14:00 12/17/17 16:59 Vitamin B1 Tab PO 100 mg TID SHIV Administration Valproate Sodium 1,000 mg 12/15/17 10:00 12/17/17 21:23 Depakene Oral Soln PO 1,000 mg Q12 SHIV Administration - Patient Studies Lab Studies: Lab Studies 12/17/17 Range/Units 06:35 Valproic Acid 33 L (50.0-100.0) ug/mL Laboratory Results - last 24 hr 12/17/17 06:35 Valproic Acid 33 L Fingerstick Blood Sugar Results: 111 Review of Systems - Review of Systems Systems not reviewed;Unavailable: Altered Mental Status Critical Care Progress Note - Ventilator Checklist Head of Bed 30 Degrees: Yes Daily Assessment of Readiness to Wean: Yes Daily Spontaneous Breathing Trial: Yes PUD Prophalyxis: Yes DVT Prophylaxis: Yes Oral Care with Chlorhexidine Gluconate {CHG}: Yes - Vent Settings MODE:: PRVC - Extremities/Vascular Does the Patient have a Central Venous Catheter?: Yes (PICC) Does the Patient need a Central Venous Catheter?: Yes Does the Patient have a Bah Catheter?: No Does the Patient need a Bah Catheter?: No - Prophylaxis GI Prophylaxis GI: PPI - Prophylaxis DVT Prophylaxis DVT: Heparin SQ, SCDs Assessment/Plan - Assessment and Plan (Free Text) Assessment: 62yo M with PMHx of Bipolar disorder and ETOH abuse in ICU for DTs 2/2 ETOH withdrawal and inability to wean off vent. Patient initially admitted to psych for suicidal ideation then transferred to in-patient due to severe ETOH withdrawal with DTs requiring high-dose sedation and intubation. Rhabdomyolysis was also noted, but has resolved. CXR showed RLL consolidation, and patient completed 8 day course of antibiotics for HCAP and sinusitis and is now off antibiotics. s/p Trach and PEG tube. Patient has failed pressure support trials. Patient is off sedation, and is more awake and responsive, with no real improvement in his mental state. The patient was accepted to LTAC after peer to peer was done with Dr. Kong and he will be transported once bed is available and transportation set up. The patient is hemodynamically stable for transport. Plan: Neuro: - off sedation and is more awake and responsive - Ativan SHIV and PRN, psych to adjust if needed - Vistaril SHIV - cont Clonidine - will cont on Propranolol for tremor, monitor for changes - cyptoheptadine d/c due to serotonin syndrome being unlikely etiology - continue thiamine, folic acid and multivitamin supplements - Neuro consulted- will discuss with them today if any meds need to be modified - 2 EEG's have been unremarkable so far; repeat EEG pending read - MRI brain showed persistent b/l maxially, ethomoid and sphoenoid sinusitis w/ mastoid effusions - Keppra 750mg BID and Depakote 1000mg BID for seizure precautions; neuro managing changes - VPA level was sub-therapeutic, neuro for recs - Continue CIWA protocol, seizure precaution, aspiration precaution Cardio: - HD stable - Maintain MAP> 65mmHg - Hydralazine PRN for BP control - cont Propranolol and Labetalol for HTN and tachycardia Pulm: - s/p tracheostomy by ENT team - Patient failed daily pressure support trials due to high rapid shallow breathing index and required to be placed back on PRVC; will attempt daily - Protective lung ventilation strategy, HOB elevated >30, daily oral care, and aspiration precautions, DVT and GI ppx, as well as daily attempts to wean off vent - Xopenex PRN - Patient has completed 8 day course of Meropenem and Vancomycin as well as tobramycin inhaled for sinusitis and possible RLL pneumonia - currently off antibiotics per ID recs - Maintain SaO2>90% GI: - cont PEG tube feeds - Thiamine, Folic acid, and MV for ETOH withdrawal and DTs - PPI for GI ppx - s/p PEG by GI team Heme: - Hgb stable - platelets stable Nephro: - Continue to monitor I&O - lytes have been stable, will not need monitoring until d/c Endo: - stable blood glucose levels - maintain euglycemia ID: - has been afebrile; blood cultures and UA negative. prior fevers likely 2/2 DT' s - off antibiotics; completed 8 days of Meropenem, Vancomycin and Tobramycin inhaled for sinusitis and HCAP - Bacitracin, Zinc, MV and vit C for skin - ID consulted- recs appreciated - PICC line in place Psych: - Hx of Bipolar - Psych consulted- recs appreciated - will evaluate per note - Consent for trach and PICC line obtained by Dr. Velez on 12/05 with family members over phone; consent for PEG obtained by GI team GI ppx: Protonix DVT ppx: Heparin SC and SCDs Diet: Tube feeds per PEG tube Dispo: Plan for LTAC per SW, which patient was accepted to after peer to peer. Delay in transfer due to bed availability. Patient is off sedation but failed pressure support trials on trach; will attempt to wean daily. Will transfer once bed is available and transfer is set up. Patient was seen, examined, and discussed with attending, Dr. Dilan Traore PGY1 Pager [phone] <Cooper Kong - Last Filed: 12/18/17 10:53> CCU Objective - Vital Signs / Intake & Output Vital Signs (Last 4 hours): Vital Signs Pulse BP Pulse Ox 12/18/17 09:16 124 H 135/91 H 12/18/17 09:15 124 H 135/91 H 12/18/17 08:00 109 H 98 12/18/17 07:50 112 H 111/73 100 12/18/17 07:09 100 H 108/64 99 12/18/17 07:00 105 H 100 Intake and Output (Last 8hrs): Intake & Output 12/17/17 12/18/17 12/18/17 22:59 06:59 14:59 Intake Total 830 720 Output Total 200 Balance 830 520 Intake: IV 20 Right Upper arm 20 Tube Feeding 810 720 Output: Urine 200 Condom 200 Other: # Bowel Movements 1 3 - Medications Active Medications: Active Medications Generic Name Dose Route Start Last Admin Trade Name Freq PRN Reason Stop Dose Admin Acetaminophen 650 mg 12/05/17 12:27 Tylenol 650 Mg Supp RC Q6H PRN Fever >100.4 F Ascorbic Acid 500 mg 11/28/17 11:30 12/18/17 09:15 Vitamin C 500 Mg Tab PO 500 mg DAILY SHIV Administration Bacitracin 1 ea 11/28/17 08:51 11/28/17 09:34 Bacitracin TOP 1 ea Q6 PRN Administration Swelling Clonidine HCl 0.2 mg 12/12/17 10:00 12/18/17 09:15 Catapres PO 0.2 mg BID SHIV Administration Docusate Sodium 100 mg 12/05/17 18:00 12/18/17 09:14 Colace Liquid PO 100 mg BID SHIV Administration Folic Acid 1 mg 12/01/17 10:15 12/18/17 09:14 Folic Acid PO 1 mg DAILY SHIV Administration Heparin Sodium (Porcine) 5,000 units 12/13/17 22:00 12/18/17 09:16 Heparin SC 5,000 units Q12 SHIV Administration Protocol Hydralazine HCl 10 mg 11/29/17 14:56 12/13/17 04:06 Apresoline IVP 10 mg Q6 PRN Administration give if SBP >160 Hydroxyzine Pamoate 25 mg 12/14/17 15:17 12/18/17 08:27 Vistaril PEG 25 mg Q8H SHIV Administration Protocol Labetalol HCl 200 mg 12/17/17 10:00 12/18/17 09:15 Trandate PO 200 mg BID SHIV Administration Levalbuterol HCl 0.63 mg 12/02/17 09:55 12/17/17 05:46 Xopenex IH 0.63 mg [id number] PRN Administration Shortness of Breath Levetiracetam 750 mg 12/04/17 22:00 12/18/17 09:14 Keppra PO 750 mg Q12 SHIV Administration Lorazepam 4 mg 12/12/17 17:00 12/18/17 09:18 Ativan PEG 4 mg Q4H SHIV Administration Protocol Lorazepam 2 mg 12/16/17 13:26 12/18/17 09:57 Ativan IVP 2 mg Q2H PRN Administration Anxiety Protocol Multivitamins/Minerals 1 tab 11/29/17 08:00 12/18/17 08:27 Therapeutic-M Tab PO 1 tab 0800 SHIV Administration Pantoprazole Sodium 40 mg 11/22/17 10:00 12/18/17 09:16 Protonix Inj IVP 40 mg DAILY SHIV Administration Polyethylene Glycol 17 gm 12/05/17 18:00 12/18/17 09:17 Miralax PO 17 gm BID SHIV Administration Propranolol HCl 40 mg 12/05/17 11:00 12/18/17 09:16 Inderal PO 40 mg BID SHIV Administration Thiamine HCl 100 mg 11/28/17 14:00 12/18/17 09:15 Vitamin B1 Tab PO 100 mg TID SHIV Administration Valproate Sodium 1,000 mg 12/15/17 10:00 12/18/17 09:14 Depakene Oral Soln PO 1,000 mg Q12 SHIV Administration Assessment/Plan - Assessment and Plan (Free Text) Assessment: Pt seen and examined on rounds with resident, agree with note with following additions/exceptions: 62yo male with PMHx of heavy EtOH abuse a/w EtOH withdrawal, DTs, was intubated , now s/p trach/PEG. Patient with improved confusion, opens eyes but does not follow commands. Very difficult to wean off ventilator 2/2, fails daily CPAP trials, becomes tachypneic Awaiting LTach. Delirium Tremens Alcohol Withdrawal Dehydration AMS ?Serotonin Syndrome Recommend: - cont with ventilatory support, daily cpap trials - monitor off Abx - IVF hydration - Thiamine, Folic, MVT - cont with Keppra - Ativan IV PRN - follow up Psych - follow up Neuro - Feeds - GI ppx - DVT ppx - patient requires LTACH
[2017-12-18] MEDS: Multivitamin With Minerals Tab PO SCH (08:27)
[2017-12-18] MEDS: Valproic Acid 250 mg/5 ml UD Cup PO SCH (09:14)
[2017-12-18] MEDS: levETIRAcetam 500 mg/5ml UD cups PO SCH (09:14)
[2017-12-18] MEDS: POLYETHYLENE GLYCOL 3350 17 GM/Dose PACKET PO SCH ×2 (09:17→17:44)
--- NOTE | 2017-12-18 12:40 | CP.PCM.PN ---
<Desean Arias - Last Filed: 12/18/17 12:40> Subjective - Date & Time of Evaluation Date of Evaluation: 12/18/17 Time of Evaluation: 06:00 - Subjective Subjective: Patient seen and evaluated bedside in ICU. No acute issues overnight. Patient opens eyes to being called, unable to follow commands. Objective - Vital Signs/Intake and Output Vital Signs (last 24 hours): Temp Pulse Resp BP Pulse Ox 98.1 F 124 H 28 H 135/91 H 98 12/18/17 04:00 12/18/17 09:16 12/18/17 04:00 12/18/17 09:16 12/18/17 08:00 Intake and Output: 12/18/17 12/18/17 06:59 18:59 Intake Total 720 Output Total 200 Balance 520 - Medications Medications: Current Medications Acetaminophen (Tylenol 650 Mg Supp) 650 mg RC Q6H PRN PRN Reason: Fever >100.4 F Ascorbic Acid (Vitamin C 500 Mg Tab) 500 mg PO DAILY [facility] Last Admin: 12/18/17 09:15 Dose: 500 mg Bacitracin (Bacitracin) 1 ea TOP Q6 PRN PRN Reason: Swelling Last Admin: 11/28/17 09:34 Dose: 1 ea Clonidine HCl (Catapres) 0.2 mg PO BID [facility] Last Admin: 12/18/17 09:15 Dose: 0.2 mg Docusate Sodium (Colace Liquid) 100 mg PO BID [facility] Last Admin: 12/18/17 09:14 Dose: 100 mg Folic Acid (Folic Acid) 1 mg PO DAILY [facility] Last Admin: 12/18/17 09:14 Dose: 1 mg Heparin Sodium (Porcine) (Heparin) 5,000 units SC Q12 SHIV PRN Reason: Protocol Last Admin: 12/18/17 09:16 Dose: 5,000 units Hydralazine HCl (Apresoline) 10 mg IVP Q6 PRN PRN Reason: give if SBP >160 Last Admin: 12/13/17 04:06 Dose: 10 mg Hydroxyzine Pamoate (Vistaril) 25 mg PEG Q8H SHIV PRN Reason: Protocol Last Admin: 12/18/17 08:27 Dose: 25 mg Labetalol HCl (Trandate) 200 mg PO BID [facility] Last Admin: 12/18/17 09:15 Dose: 200 mg Levalbuterol HCl (Xopenex) 0.63 mg IH [id number] PRN PRN Reason: Shortness of Breath Last Admin: 12/17/17 05:46 Dose: 0.63 mg Levetiracetam (Keppra) 750 mg PO Q12 [facility] Last Admin: 12/18/17 09:14 Dose: 750 mg Lorazepam (Ativan) 4 mg PEG Q4H SHIV PRN Reason: Protocol Last Admin: 12/18/17 09:18 Dose: 4 mg Lorazepam (Ativan) 2 mg IVP Q2H PRN; Protocol PRN Reason: Anxiety Last Admin: 12/18/17 09:57 Dose: 2 mg Multivitamins/Minerals (Therapeutic-M Tab) 1 tab PO 0800 [facility] Last Admin: 12/18/17 08:27 Dose: 1 tab Pantoprazole Sodium (Protonix Inj) 40 mg IVP DAILY [facility] Last Admin: 12/18/17 09:16 Dose: 40 mg Polyethylene Glycol (Miralax) 17 gm PO BID [facility] Last Admin: 12/18/17 09:17 Dose: 17 gm Propranolol HCl (Inderal) 40 mg PO BID [facility] Last Admin: 12/18/17 09:16 Dose: 40 mg Thiamine HCl (Vitamin B1 Tab) 100 mg PO TID [facility] Last Admin: 12/18/17 09:15 Dose: 100 mg Valproate Sodium (Depakene Oral Soln) 1,000 mg PO Q12 [facility] Last Admin: 12/18/17 09:14 Dose: 1,000 mg - Labs Labs: 12/17/17 06:35 12/17/17 06:35 PT 15.4 SECONDS (9.4-12.5) H 12/10/17 07:00 INR 1.33 (0.93-1.08) H 12/10/17 07:00 - Constitutional Appears: No Acute Distress - Head Exam Head Exam: ATRAUMATIC, NORMAL INSPECTION, NORMOCEPHALIC - Eye Exam Eye Exam: PERRL - ENT Exam ENT Exam: Mucous Membranes Moist - Respiratory Exam Respiratory Exam: Clear to Ausculation Bilateral, NORMAL BREATHING PATTERN - Cardiovascular Exam Cardiovascular Exam: REGULAR RHYTHM - Neurological Exam Neurological Exam: absent: Oriented x3 Assessment and Plan - Assessment and Plan (Free Text) Assessment: 62 year old male with PMHx of Bipolar disorder and ETOH abuse in ICU for DTs. Patient initially admitted to psych for suicidal ideation then transferred to in -patient due to severe ETOH withdrawal with DTs requiring high-dose sedation and intubation. Subclinical seizure noted on EEG performed on 11/30/17. Fevers likely due to DTs versus developing RLL consolidation and pleural effusion seen on CXR. Repeat EEG showing artifact likely from hand tremors. Patient's sister Bindu Ashton ([phone]) was able to get in touch with the critical care team and advocate for PEG placement, and she will be the healthcare proxy from this point forward. PEG placed on 12/09/17, and trach placed on 12/11/17. Awaiting bed at LTAC. Plan: 1. ETOH withdrawal with Delirium Tremens - Trached and on ventilator support. Vent settings as follows: 50% FiO2, PEEP 5 , Tidal Volume 400, Respiratory rate 18 - Neuro consulted- recs appreciated - Head CT negative for acute pathology - IV Depakote and Keppra on board for seizure prophylaxis and mood stabilization - MRI brain showed persistent bilateral maxillary, ethmoid and sphenoid sinusitis with mastoid effusions - Ativan 4 mg PEG Q4H SHIV and 2 mg IV Q4 prn - cyproheptadine and propanolol for tremors 2. Altered Mental Status, currently being sedated for DT's - CT head was unremarkable - Continue thiamine TID - Per neurology, agitation possibly manifestation of patient's psychiatric illnesses. Seroquel was started and mood stabilizers were increased in dosages. 3. Right lower lobe consolidations secondary to HCAP-resolved - Seen on CXR and worsening, with pleural effusion as well - Possible pneumonia with pleural effusion versus atelectasis - Treated with Merrem and Vancomycin 4. Blisters on hands - Multivitamin, vit C and Zinc added - Bacitracin ointment to be applied 6. Transaminitis Due to chronic alcohol abuse, will discuss alcohol cessation with patient once no longer sedated. -improving Prophylaxis - SCDs - Aspiration precautions - Seizure precautions - Heparin SC - Protonix <Samantha Tabor B - Last Filed: 12/18/17 13:24> Objective - Vital Signs/Intake and Output Vital Signs (last 24 hours): Temp Pulse Resp BP Pulse Ox 98.1 F 124 H 28 H 135/91 H 98 12/18/17 04:00 12/18/17 09:16 03/01/18 04:00 12/18/17 09:16 12/18/17 08:00 Intake and Output: 12/18/17 12/18/17 06:59 18:59 Intake Total 720 Output Total 200 Balance 520 - Medications Medications: Current Medications Acetaminophen (Tylenol 650 Mg Supp) 650 mg RC Q6H PRN PRN Reason: Fever >100.4 F Ascorbic Acid (Vitamin C 500 Mg Tab) 500 mg PO DAILY [facility] Last Admin: 12/18/17 09:15 Dose: 500 mg Bacitracin (Bacitracin) 1 ea TOP Q6 PRN PRN Reason: Swelling Last Admin: 11/28/17 09:34 Dose: 1 ea Clonidine HCl (Catapres) 0.2 mg PO BID [facility] Last Admin: 12/18/17 09:15 Dose: 0.2 mg Docusate Sodium (Colace Liquid) 100 mg PO BID [facility] Last Admin: 12/18/17 09:14 Dose: 100 mg Folic Acid (Folic Acid) 1 mg PO DAILY [facility] Last Admin: 12/18/17 09:14 Dose: 1 mg Heparin Sodium (Porcine) (Heparin) 5,000 units SC Q12 SHIV PRN Reason: Protocol Last Admin: 12/18/17 09:16 Dose: 5,000 units Hydralazine HCl (Apresoline) 10 mg IVP Q6 PRN PRN Reason: give if SBP >160 Last Admin: 12/13/17 04:06 Dose: 10 mg Hydroxyzine Pamoate (Vistaril) 25 mg PEG Q8H SHVI PRN Reason: Protocol Last Admin: 12/18/17 08:27 Dose: 25 mg Labetalol HCl (Trandate) 200 mg PO BID [facility] Last Admin: 12/18/17 09:15 Dose: 200 mg Levalbuterol HCl (Xopenex) 0.63 mg IH [id number] PRN PRN Reason: Shortness of Breath Last Admin: 12/17/17 05:46 Dose: 0.63 mg Levetiracetam (Keppra) 750 mg PO Q12 [facility] Last Admin: 12/18/17 09:14 Dose: 750 mg Lorazepam (Ativan) 4 mg PEG Q4H SHIV PRN Reason: Protocol Last Admin: 12/18/17 09:18 Dose: 4 mg Lorazepam (Ativan) 2 mg IVP Q2H PRN; Protocol PRN Reason: Anxiety Last Admin: 12/18/17 09:57 Dose: 2 mg Multivitamins/Minerals (Therapeutic-M Tab) 1 tab PO 0800 [facility] Last Admin: 12/18/17 08:27 Dose: 1 tab Pantoprazole Sodium (Protonix Inj) 40 mg IVP DAILY [facility] Last Admin: 12/18/17 09:16 Dose: 40 mg Polyethylene Glycol (Miralax) 17 gm PO BID [facility] Last Admin: 12/18/17 09:17 Dose: 17 gm Propranolol HCl (Inderal) 40 mg PO BID [facility] Last Admin: 12/18/17 09:16 Dose: 40 mg Thiamine HCl (Vitamin B1 Tab) 100 mg PO TID [facility] Last Admin: 12/18/17 09:15 Dose: 100 mg Valproate Sodium (Depakene Oral Soln) 1,000 mg PO Q12 [facility] Last Admin: 12/18/17 09:14 Dose: 1,000 mg - Labs Labs: 12/17/17 06:35 12/17/17 06:35 PT 15.4 SECONDS (9.4-12.5) H 12/10/17 07:00 INR 1.33 (0.93-1.08) H 12/10/17 07:00 Attending/Attestation - Attestation I have personally seen and examined this patient.: Yes I have fully participated in the care of the patient.: Yes I have reviewed all pertinent clinical information, including history, physical exam and plan: Yes Notes (Text): I have seen and examined the patient at bedside. Agree with the above note with the following additions/ exceptions: Briefly this is 62 year old male with history of bipolar disorder and chronic alcohol abuse who was admitted for alcohol withdrawal and delirium tremens. He is now s/p PEG placement and trach placement. He has not been tolerating weaning trial. Patient is awake and not able to follow commands. Continue ativan. Continue Vistaril for possible tardive dyskinesia. CXR reveals RLL consolidation. Patient has completed antibiotics. UDS negative. Echo did not reveal any vegetation. Patient is awaiting LTACH placement. Dr Samantha Tabor
--- NOTE | 2017-12-18 15:21 | CP.PCM.PN ---
Subjective - Date & Time of Evaluation Date of Evaluation: 12/18/17 Time of Evaluation: 14:30 - Subjective Subjective: Infectious Disease Follow Up: December 18, 2017 62 yo male with medical history that includes Bipolar disorder and alcohol abuse presented with EtOH intoxication and now in withdrawals. Originally in the psych floor for bipolar disease treatment and suicidal ideation on 11/21/2017. The patient required intubation. ID initially called for possible aspiration pneumonia. No fevers, leukocytosis at this time. Remains intubated. Still no fevers or leukocytosis. Remains sedated. Noted blistered skin on right hand that slightly improved. Persistent fevers up to 102.0 F earlier in course of hospitalization but afebrile the last few days.. Still no leukocytosis. Cultures from 11/30/2017 negative. New cultures sent 12/01-. Multiple blisters on the right hand. Fluid filler and dark in color. Would obtain fluid from blisters for culture. Would consider CT of chest/ abdomen/pelvis. Continue on meropenem for antibiotic coverage at this point. Also on inhaled tobramycin and IV Zyvox. No new issues. Difficult extubation. Trach and PEG done. Off sedation and receiving Ativan on a schedule. He opens eyes spontaneously and can follow a few simple commands... stick out tongue and blink eyes for example. Chest X-ray still with patchy infiltrate in right lung and atelectasis. No other new issues so far. Accepted into LTACH. Awaiting transport arrangements. Objective - Vital Signs/Intake and Output Vital Signs (last 24 hours): Temp Pulse Resp BP Pulse Ox 98.1 F 91 H 28 H 118/75 98 12/18/17 04:00 12/18/17 14:26 12/18/17 04:00 12/18/17 14:26 12/18/17 14:26 Intake and Output: 12/18/17 12/18/17 06:59 18:59 Intake Total 720 Output Total 200 Balance 520 - Medications Medications: Current Medications Acetaminophen (Tylenol 650 Mg Supp) 650 mg RC Q6H PRN PRN Reason: Fever >100.4 F Ascorbic Acid (Vitamin C 500 Mg Tab) 500 mg PO DAILY SHIV Last Admin: 12/18/17 09:15 Dose: 500 mg Bacitracin (Bacitracin) 1 ea TOP Q6 PRN PRN Reason: Swelling Last Admin: 11/28/17 09:34 Dose: 1 ea Clonidine HCl (Catapres) 0.2 mg PO BID [facility] Last Admin: 12/18/17 09:15 Dose: 0.2 mg Docusate Sodium (Colace Liquid) 100 mg PO BID [facility] Last Admin: 12/18/17 09:14 Dose: 100 mg Folic Acid (Folic Acid) 1 mg PO DAILY [facility] Last Admin: 12/18/17 09:14 Dose: 1 mg Heparin Sodium (Porcine) (Heparin) 5,000 units SC Q12 SHIV PRN Reason: Protocol Last Admin: 12/18/17 09:16 Dose: 5,000 units Hydralazine HCl (Apresoline) 10 mg IVP Q6 PRN PRN Reason: give if SBP >160 Last Admin: 12/13/17 04:06 Dose: 10 mg Hydroxyzine Pamoate (Vistaril) 25 mg PEG Q8H SHIV PRN Reason: Protocol Last Admin: 12/18/17 08:27 Dose: 25 mg Labetalol HCl (Trandate) 200 mg PO BID [facility] Last Admin: 12/18/17 09:15 Dose: 200 mg Levalbuterol HCl (Xopenex) 0.63 mg IH [id number] PRN PRN Reason: Shortness of Breath Last Admin: 12/17/17 05:46 Dose: 0.63 mg Levetiracetam (Keppra) 750 mg PO Q12 [facility] Last Admin: 12/18/17 09:14 Dose: 750 mg Lorazepam (Ativan) 4 mg PEG Q4H SHIV PRN Reason: Protocol Last Admin: 12/18/17 12:57 Dose: 4 mg Lorazepam (Ativan) 2 mg IVP Q2H PRN; Protocol PRN Reason: Anxiety Last Admin: 12/18/17 14:01 Dose: 2 mg Multivitamins/Minerals (Therapeutic-M Tab) 1 tab PO 0800 [facility] Last Admin: 12/18/17 08:27 Dose: 1 tab Pantoprazole Sodium (Protonix Inj) 40 mg IVP DAILY [facility] Last Admin: 12/18/17 09:16 Dose: 40 mg Polyethylene Glycol (Miralax) 17 gm PO BID [facility] Last Admin: 12/18/17 09:17 Dose: 17 gm Propranolol HCl (Inderal) 40 mg PO BID [facility] Last Admin: 12/18/17 09:16 Dose: 40 mg Thiamine HCl (Vitamin B1 Tab) 100 mg PO TID [facility] Last Admin: 12/18/17 13:59 Dose: 100 mg Valproate Sodium (Depakene Oral Soln) 1,000 mg PO Q12 [facility] Last Admin: 12/18/17 09:14 Dose: 1,000 mg - Labs Labs: 12/17/17 06:35 12/17/17 06:35 PT 15.4 SECONDS (9.4-12.5) H 12/10/17 07:00 INR 1.33 (0.93-1.08) H 12/10/17 07:00 - Constitutional Appears: Non-toxic, No Acute Distress, Chronically Ill - Head Exam Additional comments: trach in place - Eye Exam Eye Exam: EOMI, PERRL Pupil Exam: NORMAL ACCOMODATION, PERRL - ENT Exam ENT Exam: Mucous Membranes Moist, Normal External Ear Exam, TM's Normal Bilaterally - Neck Exam Neck Exam: Full ROM, Normal Inspection - Respiratory Exam Respiratory Exam: Decreased Breath Sounds. absent: Rales, Rhonchi, Wheezes Additional comments: trach and vented. - Cardiovascular Exam Cardiovascular Exam: REGULAR RHYTHM, RRR, +S1, +S2 - GI/Abdominal Exam GI & Abdominal Exam: Soft, Normal Bowel Sounds. absent: Distended, Tenderness - Extremities Exam Extremities Exam: Full ROM, Normal Inspection - Neurological Exam Additional comments: Arousable and follows a few commands. Assessment and Plan - Assessment and Plan (Free Text) Assessment: 62 yo male with EtOH abuse. Developed EtOH withdrawal and now required intubation and ventilation. The patient was being evaluated by ID for potential aspiration. The patient is currently on Cefepime and Vancomycin. If aspiration is a significant concern, would either add Flagyl IV or switch Cefepime to Meropenem or Zosyn. Febrile several days ago up to 102 F. Afebrile the last few days. No leukocytosis. No findings on Chest X-ray. Supportive care. Procalcitonin is 0.14 which is low. Noted procalcitonin repeated multiple times and all showing low values. Suggests strongly against bacterial causes but does not rule out viral. More likely secondary to the EtOH withdrawal and Delirium Tremens. Case discussed with team. Off antibiotics now. Will Monitor. Difficult extubation/wean from ventilation. Afebrile. 11/30/2017 cultures negative so far. 12/01/2017 cultures with no specific growth. Afebrile the last few days. Sputum cultures with yeast. Patient is off sedation now. On Ativan on schedule. Patient arousable and can follow some simple commands. Trach and PEG done. Antibiotics completed. Supportive care. No need for further antibiotics. For LTACH today. Thank you for allowing me to participate in the care of the patient, we will follow with you.
[2017-12-18 18:25] VITALS: BP 119/66
[2017-12-18 19:53] VITALS: TEMP 98.4
[2017-12-18 19:54] VITALS: PULSE 82; RESP 24; O2SAT 100
== END 2017-12-18 20:50 | DRG 3 ==
LOC: ED 08:47 → ERH 11:05 → ICU 11:58
PROVIDERS: ADMIT Internal Medicine; ATTEND Hospitalist
PROC: 0T9B70Z Drainage of Bladder with Drainage Device, Via Natural or Artificial Opening (ICD-10-PCS; 2017-11-24)
PROC: 5A1955Z Respiratory Ventilation, Greater than 96 Consecutive Hours (ICD-10-PCS; 2017-11-25)
PROC: 0BH18EZ Insertion of Endotracheal Airway into Trachea, Via Natural or Artificial Opening Endoscopic (ICD-10-PCS; 2017-11-25)
PROC: 05HN33Z Insertion of Infusion Device into Left Internal Jugular Vein, Percutaneous Approach (ICD-10-PCS; 2017-12-05)
PROC: 0DH63UZ Insertion of Feeding Device into Stomach, Percutaneous Approach (ICD-10-PCS; 2017-12-09)
PROC: 3E0G76Z Introduction of Nutritional Substance into Upper GI, Via Natural or Artificial Opening (ICD-10-PCS; 2017-12-09)
PROC: 02HV33Z Insertion of Infusion Device into Superior Vena Cava, Percutaneous Approach (ICD-10-PCS; 2017-12-09)
PROC: B54MZZA Ultrasonography of Right Upper Extremity Veins, Guidance (ICD-10-PCS; 2017-12-09)
PROC: 0GTJ0ZZ Resection of Thyroid Gland Isthmus, Open Approach (ICD-10-PCS; 2017-12-11)
PROC: 0B110F4 Bypass Trachea to Cutaneous with Tracheostomy Device, Open Approach (ICD-10-PCS; principal; 2017-12-11 11:00)
DX: F10.231 Alcohol dependence with withdrawal delirium (principal); J69.0 Pneumonitis due to inhalation of food and vomit; G93.41 Metabolic encephalopathy; J96.91 Respiratory failure, unspecified with hypoxia; E46 Unspecified protein-calorie malnutrition; J90 Pleural effusion, not elsewhere classified; M62.82 Rhabdomyolysis; R45.851 Suicidal ideations; E87.0 Hyperosmolality and hypernatremia; J98.11 Atelectasis; Z99.11 Dependence on respirator [ventilator] status; E11.649 Type 2 diabetes mellitus with hypoglycemia without coma; E86.0 Dehydration; F31.9 Bipolar disorder, unspecified; K21.9 Gastro-esophageal reflux disease without esophagitis; F41.9 Anxiety disorder, unspecified; E87.6 Hypokalemia; S60.521A Blister (nonthermal) of right hand, initial encounter; R56.9 Unspecified convulsions; K29.70 Gastritis, unspecified, without bleeding; I10 Essential (primary) hypertension; G25.3 Myoclonus; J32.2 Chronic ethmoidal sinusitis; J32.0 Chronic maxillary sinusitis; J32.3 Chronic sphenoidal sinusitis; R40.2433 Glasgow coma scale score 3-8, at hospital admission; D64.9 Anemia, unspecified; Y95 Nosocomial condition; Y90.0 Blood alcohol level of less than 20 mg/100 ml; X58.XXXA Exposure to other specified factors, initial encounter; Z79.4 Long term (current) use of insulin; Z78.1 Physical restraint status